=== PATIENT | male | born 1945 | race Caucasian/White ===

== ENCOUNTER 2017-03-19 01:22 | Inpatient (IN) | payer OTHER, MEDICARE ==
[~2017-03-19] VITALS: Ht 162.6 cm; Wt 57.6 kg
[2017-03-19] VITALS (8 sets, daily range): BP systolic 104–121; BP diastolic 63–78; PULSE 74–106; TEMP 36.6–37; O2SAT 89–95; BMI 21.8
[~2017-03-19 01:22] MED LIST: ALBU1AER9 INH; ASPCH81X PO; HYDR25TA4 PO; LEVO100T PO; METO25TA56 PO; SIMV20TA2 PO
[2017-03-19 02:51] LABS: ALT/SGPT 121 U/L (12-78); AST/SGOT 98 U/L (15-37); BLOOD UREA NITROGEN 18 mg/dl (7-18); BUN/CREATININE RATIO 19.1 (10-20); CALCIUM 8.5 mg/dl (8.5-10.1); CARBON DIOXIDE 24 mmol/L (21-32); CHLORIDE 105 mmol/L (98-107); CREATININE 0.93 mg/dl (0.60-1.40); GLUCOSE 147 mg/dl (70-99); POTASSIUM 4.2 mmol/L (3.5-5.1); SODIUM 135 mmol/L (136-145)
[2017-03-19 02:54] LABS: ALB/GLOB RATIO 0.8 (0.9-2); ALKALINE PHOSPHATASE 324 U/L (45-117)
[2017-03-19 03:06] LABS: INR 1.1 (0.9-1.1); PARTIAL THROMBOPLASTIN RATIO 1.1; PROTHROMBIN TIME (PATIENT) 11.3 SECONDS (9.0-12.0)
[2017-03-19 03:07] LABS: HEMATOCRIT 33.9 % (42-52); MEAN CELL VOLUME 90.4 fL (80-100); MEAN CORPUSCULAR HEMOGLOBIN 32.5 pg (25-34); MEAN PLATELET VOLUME 11.2 fL (7.4-10.4); PLATELET COUNT 32 K/uL (130-400); RED BLOOD COUNT 3.75 M/uL (4.7-6.1); WHITE BLOOD COUNT 5.98 K/uL (4.8-10.8)
[2017-03-19 03:22] LABS: COMPLETE YES; ECHINOCYTES 1+; LYMPH ABS # 1.09 K/uL (1.2-3.4); LYMPHOCYTE % 18.3 %; NEUTROPHILS % 51.3 %; VARIANT LYM ABS # 1.56 K/uL; VARIANT LYMPHOCYTE % 26.1 %
[2017-03-19] MEDS ORDERED: FUROSEMIDE 40 MG/4 ML VIAL IV STA (03:47)
[2017-03-19] MEDS ORDERED: GLIM1TAB2 PO (04:20)
[2017-03-19] MEDS ORDERED: LEVO50TA6 PO (04:21)
[2017-03-19] MEDS ORDERED: LIOT5TAB PO (04:28)
[2017-03-19 05:22] LABS: URINE APPEARANCE CLEAR (CLEAR); URINE COLOR DK YELLOW; URINE NITRITE NEG (NEG); URINE SPECIFIC GRAVITY 1.029 (1.000-1.030); UROBILINOGEN NEG (NEG); ZZUR CULT IF INDIC CLEAN CATCH NO
[2017-03-19 05:30] LABS: REVIEW REQ? NO
[2017-03-19 05:31] LABS: MANUAL MICROSCOPIC REQUIRED? NO; URINE BILIRUBIN NEG (NEG)
[2017-03-19] MEDS ORDERED: ACETAMINOPHEN 325 MG TAB PO PRN (05:45)
[2017-03-19] MEDS ORDERED: GLUCAGON FOR INJ 1 MG VIAL SQ PRN (05:45)
[2017-03-19] MEDS ORDERED: DEXTROSE 50% 50 ML SYR IV PRN (05:45)
[2017-03-19] MEDS ORDERED: ONDANSETRON INJ 2 MG/ML 2 ML VIAL IV PRN (05:45)
[2017-03-19] MEDS ORDERED: GLUCOSE 10 TABS/TUBE PO PRN (05:45)
[2017-03-19] MEDS ORDERED: GLUCOSE 40% GEL 15 GM TUBE PO PRN (05:45)
--- NOTE | 2017-03-19 05:54 | History and Physical ---
History & Physical Date & Time of Service: Mar 19, 2017 at 05:50 Chief Complaint: Cough,Temp Of 101.7-Transplant Patient Primary Care Physician: Dioni Pizarro M.D. 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 Patient was found to be hypoxic at 89 on room air while in ED. She states he had mucus drainage and some runny nose. SOB is worse with exertion and denies any SOB at rest. Denies any history of CHF and never was on oxygen in the past. Denies any history of chest pain, orthopnea, PND, leg swelling, wheezing, dizziness, fever, chills, weakness, nausea, vomiting, diarrhea, dysuria. Also reports abdominal pain across the abdomen since 2 days with no aggravating/relieving factors, non radiating, currently no tenderness on exam. Past Medical/Surgical History Medical Problems: (1) Hypothyroid Status: Chronic Surgical Problems: (1) Aortic valve replaced Status: Resolved Family History Patient reports no known family medical history. Reviewed, Not contributory Social History Smoking Status: Never Smoker Alcohol Use: none Drug Use: none Marital Status: Allergies Coded Allergies: No Known Allergies (Unverified , 08/07/13) Home Medications Scheduled Glimepiride (Glimepiride), 1 MG PO QID Levothyroxine Sodium (Levothyroxine Sodium), 50 MCG PO BID Liothyronine Sodium (Cytomel), 10 MCG PO BID Metoprolol Tartrate (Lopressor) (Lopressor), 12.5 MG PO BID Review of Systems See HPI for pertinent positives & negatives. A total of 10 systems reviewed and were otherwise negative. Physical Exam Vital Signs Date Time Temp Pulse Resp B/P (MAP) Pulse Ox O2 Delivery O2 Flow Rate FiO2 03/19/17 05:36 73 18 103/72 92 Room Air 2.0 03/19/17 05:12 79 03/19/17 04:55 72 18 116/77 96 Room Air 2.0 03/19/17 04:09 72 18 105/73 95 Room Air 03/19/17 03:33 36.9 75 18 113/75 94 Nasal Cannula 3.0 03/19/17 02:46 95 Nasal Cannula 3.0 03/19/17 01:58 37.1 75 18 112/72 90 Room Air 03/19/17 01:56 90 Room Air 03/19/17 01:45 80 03/19/17 01:30 37.1 87 18 99/63 89 Room Air General Appearance: WD/WN, no apparent distress Head: normocephalic, atraumatic Eyes: normal inspection, PERRL, EOMI, sclerae normal ENT: normal ENT inspection, hearing grossly normal Neck: supple, no JVD, trachea midline Respiratory/Chest: no respiratory distress, no accessory muscle use, + pertinent finding (Scattered rales, decreased breath sounds) Cardiovascular: regular rate, rhythm, no edema, + systolic murmur Abdomen/GI: normal bowel sounds, non tender, soft Back: normal inspection Extremities/Musculoskelatal: normal inspection, no pedal edema Neurologic/Psych: ski top trimmer II-XII nml as tested, no motor/sensory deficits, alert, normal mood/affect, oriented x 3 Skin: normal color, warm/dry Diagnostics Laboratory Results Results Past 24 Hours Test 03/19/17 01:50 03/19/17 03:03 03/19/17 03:45 03/19/17 03:58 Range/Units White Blood Count 5.98 4.8-10.8 K/uL Red Blood Count 3.75 4.7-6.1 M/uL Hemoglobin 12.2 14.0-18.0 g/dL Hematocrit 33.9 42-52 % Mean Corpuscular Volume 90.4 80-100 fL Mean Corpuscular Hemoglobin 32.5 25-34 pg Mean Corpuscular Hemoglobin Concent 36.0 32-36 g/dl Platelet Count 32 130-400 K/uL Mean Platelet Volume 11.2 7.4-10.4 fL RDW Standard Deviation 44.0 36.4-46.3 fL RDW Coefficient of Variation 13.3 11.5-14.5 % Neutrophils % (Manual) 51.3 % Lymphocytes % (Manual) 18.3 % Variant Lymphocytes % (manual) 26.1 % Monocytes % (Manual) 4.3 % Neutrophils # (Manual) 3.07 1.4-6.5 K/uL Total Absolute Neutrophils 3.07 1.4-6.5 K/uL Lymphocytes # (Manual) 1.09 1.2-3.4 K/uL Absolute Variant Lymphocytes 1.56 K/uL Total Absolute Lymphocytes 2.66 1.2-3.4 K/uL Monocytes # (Manual) 0.26 0.11-0.59 K/uL Echinocytes 1+ Prothrombin Time 11.3 9.0-12.0 SECONDS Prothromb Time International Ratio 1.1 0.9-1.1 Activated Partial Thromboplast Time 28.3 21.0-31.0 SECONDS Partial Thromboplastin Ratio 1.1 Sodium Level 135 136-145 mmol/L Potassium Level 4.2 3.5-5.1 mmol/L Chloride Level 105 98-107 mmol/L Carbon Dioxide Level 24 21-32 mmol/L Anion Gap 6.0 3-11 mmol/L Blood Urea Nitrogen 18 7-18 mg/dl Creatinine 0.93 0.60-1.40 mg/dl Est Creatinine Clear Calc Drug Dose 62.8 ml/min Estimated GFR () 96.7 Estimated GFR (Non- 83.5 BUN/Creatinine Ratio 19.1 10-20 Random Glucose 147 70-99 mg/dl Calcium Level 8.5 8.5-10.1 mg/dl Total Bilirubin 0.8 0.2-1 mg/dl Aspartate Amino Transf (AST/SGOT) 98 15-37 U/L Alanine Aminotransferase (ALT/SGPT) 121 12-78 U/L Alkaline Phosphatase 324 45-117 U/L Total Creatine Kinase 36 39-308 U/L Creatine Kinase MB < 0.5 0.5-3.6 ng/ml Creatine Kinase MB Ratio 0-3.0 Troponin I < 0.015 0-0.045 ng/ml Pro-B-Type Natriuretic Peptide 716 0-900 pg/ml Total Protein 6.5 6.4-8.2 gm/dl Albumin 2.8 3.4-5.0 gm/dl Globulin 3.7 2.5-4.0 gm/dl Albumin/Globulin Ratio 0.8 0.9-2 Bedside Lactic Acid Venous 0.78 0.90-1.70 mmol/L Urine Color DK YELLOW Urine Appearance CLEAR CLEAR Urine pH 5.0 4.5-7.5 Urine Specific Hanna 1.029 1.000-1.030 Urine Protein 1+ NEG Urine Glucose (UA) NEG NEG Urine Ketones TRACE NEG Urine Occult Blood NEG NEG Urine Nitrite NEG NEG Urine Bilirubin NEG NEG Urine Urobilinogen NEG NEG Urine Leukocyte Esterase NEG NEG Urine WBC (Auto) 1-5 0-5 /hpf Urine RBC (Auto) 0-4 0-4 /hpf Urine Hyaline Casts (Auto) 1-5 0-5 /lpf Urine Epithelial Cells (Auto) 5-10 0-5 /lpf Urine Bacteria (Auto) NEG NEG Microbiology Results 03/19/17 Blood Culture, Received Pending 03/19/17 Blood Culture, Received Pending Diagnostic Radiology CT chest: 1. Near diffuse ground glass airspace opacities within the lungs with mild interlobular septal thickening. This is nonspecific but can be seen the setting of an atypical pneumonia or pulmonary edema. The differential diagnosis also includes pulmonary hemorrhage, sarcoidosis, or less likely alveolar proteinosis, drug toxicity, hypersensitivity pneumonitis, or neoplastic change. Follow-up is recommended to ensure resolution. 2. Prominent mediastinal lymph nodes which are likely reactive. CXR: Near diffuse patchy airspace opacities and mild interstitial thickening throughout the lungs. This could be due to an atypical pneumonia or pulmonary edema. ABD USD: 1. A few small gallstones. No gallbladder wall thickening. 2. No hydronephrosis. Suggestion of a 4 mm stone within the right kidney. Impression Assessment and Plan Hypoxia: Likely secondary to atypical pneumonia or Pulmonary edema CT chest showed Near diffuse ground glass airspace opacities with mild interlobular septal thickening. 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 Y/N: Yes Risk Level: Low
[2017-03-19] MEDS ORDERED: OPTIRAY 320 IV PRN (06:45)
[2017-03-19] MEDS: INSULIN ASPART 100 UNITS/ML 3 ML PEN SC SCH ×4 (07:00→21:26)
--- NOTE | 2017-03-19 07:17 | DIAGNOSTIC IMAGING REPORT ---
CHEST CT WITH CONTRAST CT DOSE: 208.67 mGy.cm HISTORY: Hypoxia TECHNIQUE: Multiaxial CT images of the chest were performed following the intravenous administration of contrast. A dose lowering technique was utilized adhering to the principles of ALARA. COMPARISON: None. FINDINGS: No pleural effusions. No pneumothorax. The central airways are patent. Small linear scarlike density within the left lung apex. There are diffuse groundglass airspace opacities within the lungs demonstrating upper lobe predominance. There are is also mild interlobular septal thickening within the upper lobes. Poststernotomy changes. Left jugular Port-A-Cath terminates in the SVC. There are few scattered subcentimeter hypodense lesions within the liver. These are too small to characterize. The spleen and adrenal glands are unremarkable. Small hiatus hernia. The central pulmonary arteries are patent. Multiple subcentimeter mediastinal and hilar lymph nodes. The heart is normal in size. Normal caliber thoracic aorta with no evidence for dissection. There is an aortic valve prosthesis. IMPRESSION: 1. Near diffuse groundglass airspace opacities within the lungs with mild interlobular septal thickening. This is nonspecific but can be seen the setting of an atypical pneumonia or pulmonary edema. The differential diagnosis also includes pulmonary hemorrhage, sarcoidosis, or less likely alveolar proteinosis, drug toxicity, hypersensitivity pneumonitis, or neoplastic change. Follow-up is recommended to ensure resolution. 2. Prominent mediastinal lymph nodes which are likely reactive. Electronically signed by: Lucas Nguyen M.D. 03/19/2017 7:16 AM Dictated Date/Time: 03/19/2017 7:06 AM
--- NOTE | 2017-03-19 07:49 | DIAGNOSTIC IMAGING REPORT ---
ABDOMINAL ULTRASOUND COMPLETE HISTORY: Generalized Abd pain, elevated LFTs. COMPARISON: None. FINDINGS: Pancreas: The pancreatic head and tail are obscured by overlying bowel gas. The remaining portions of the pancreas are within normal limits. Liver: Unremarkable. Gallbladder: No gallbladder wall thickening. There are few small gallstones. CBD: 3 mm. Kidneys: No hydronephrosis. A 4 mm stone within the lower pole the right kidney. Spleen: Normal in size. Aorta: Normal in caliber. IVC: Patent. IMPRESSION: 1. A few small gallstones. No gallbladder wall thickening. 2. No hydronephrosis. Suggestion of a 4 mm stone within the right kidney. Electronically signed by: Lucas Nguyen M.D. 03/19/2017 7:48 AM Dictated Date/Time: 03/19/2017 7:45 AM
--- NOTE | 2017-03-19 08:03 | DIAGNOSTIC IMAGING REPORT ---
CHEST ONE VIEW PORTABLE HISTORY: cough COMPARISON: Chest 08/07/2013. FINDINGS: Near diffuse patchy airspace opacity seen throughout the lungs with mild interstitial thickening. Left jugular Port-A-Cath terminates in the SVC. Poststernotomy changes and cardiac valve prosthesis. The heart is normal in size. No pleural effusions. No pneumothorax. IMPRESSION: Near diffuse patchy airspace opacities and mild interstitial thickening throughout the lungs. This could be due to an atypical pneumonia or pulmonary edema. Electronically signed by: Lucas Nguyen M.D. 03/19/2017 8:01 AM Dictated Date/Time: 03/19/2017 8:00 AM
[2017-03-19] MEDS ORDERED: LEVOFLOXACIN / D5W 750 MG in PREMIXED IN D5W 150 ML IV SCH (09:30)
--- NOTE | 2017-03-19 09:40 | ECHOCARDIOGRAM REPORT ---
*NOTICE TO RECEIVING CONSTITUTION PARTY AGENCY This information is strictly Confidential and protected under [place] law. [place] law prohibits you from making any further disclosure of this information unless further disclosure is expressly permitted by the written consent of the person to whom it pertains or is authorized by law. A general authorization for the release of medical or other information is not sufficient for this purpose. Hospital accepts no responsibility if the information is made available to any other person, INCLUDING THE PATIENT. Interpretation Summary * Name: SHELBI BRUNNER Study Date: 03/19/2017 07:53 AM BP: 103/72 mmHg * Patient Location: [facility] HR: 73 * : 1945 (M/d/yyyy) Gender: Male Height: 64 in * Age: 71 yrs Ethnicity: CA Weight: 134 lb * Ordering Physician: Clemente Akers * Referring Physician: Self, Referred * Performed By: Caitlyn Denson RDCS * * Reason For Study: Congestive Heart Failure * BSA: 1.6 m2 * -- Conclusions -- * The left ventricle is normal in size. * Left ventricular systolic function is normal. * Ejection Fraction = 55-60%. * Grade I diastolic dysfunction, (abnormal relaxation pattern). * The right ventricular systolic function is normal. * The left atrial size is normal. * Right atrial size is normal. * No significant valvular pathology. Procedure Details * A complete two-dimensional transthoracic echocardiogram was performed (2D, M-mode, Doppler and color flow Doppler). Left Ventricle * The left ventricle is normal in size. * There is normal left ventricular wall thickness. * Ejection Fraction = 55-60%. * Left ventricular systolic function is normal. * The left ventricular wall motion is normal. Right Ventricle * The right ventricle is normal size. * The right ventricular systolic function is normal. Atria * The left atrial size is normal. * Right atrial size is normal. * There is no evidence of atrial septal defect, but resolution does not allow assessment for a patent foramen ovale. Mitral Valve * The mitral valve anatomy is normal. * There is moderate mitral annular calcification. * Significant mitral regurgitation is absent. Tricuspid Valve * The tricuspid valve anatomy is normal. * Significant tricuspid regurgitation is absent. Aortic Valve * The aortic valve is tricuspid. The leaflet thickness if normal. There is no aortic stenosis, and no significant insufficiency. * Aortic valve sclerosis moderate, without significant aortic valvular stenosis. * There is no significant aortic regurgitation. Pulmonic Valve * The pulmonic valve is not well visualized. * There is no significant pulmonary regurgitation. Great Vessels * The aortic root and proximal ascending aorta are normal sized. Pericardium/Pleural * There is no pericardial effusion. Left Ventricular Diastolic Function * Grade I diastolic dysfunction, (abnormal relaxation pattern). MMode 2D Measurements and Calculations IVSd 0.92 cm IVSs 1.5 cm LVIDd 3.9 cm LVIDs 2.7 cm LVPWd 0.98 cm LVPWs 1.4 cm IVS/LVPW 0.95 FS 30.7 % EDV(Teich) 67.3 ml ESV(Teich) 27.6 ml EF(Teich) 58.9 % EDV(cubed) 60.9 ml ESV(cubed) 20.2 ml EF(cubed) 66.8 % % IVS thick 63.0 % % LVPW thick 44.0 % LV mass(C)d 114.9 grams LV mass(C)dI 69.7 grams/m\S\2 LV mass(C)s 132.5 grams LV mass(C)sI 80.3 grams/m\S\2 SV(Teich) 39.7 ml SI(Teich) 24.0 ml/m\S\2 SV(cubed) 40.7 ml SI(cubed) 24.6 ml/m\S\2 Ao root diam 2.2 cm Ao root area 3.6 cm\S\2 ACS 1.3 cm LA dimension 3.6 cm LA/Ao 1.7 LVOT diam 1.8 cm LVOT area 2.5 cm\S\2 LVAd ap4 24.7 cm\S\2 LVLd ap4 8.0 cm EDV(MOD-sp4) 66.4 ml EDV(sp4-el) 64.4 ml LVAs ap4 12.9 cm\S\2 LVLs ap4 6.7 cm ESV(MOD-sp4) 22.7 ml ESV(sp4-el) 21.1 ml EF(MOD-sp4) 65.8 % EF(sp4-el) 67.2 % LVAd ap2 26.2 cm\S\2 LVLd ap2 8.9 cm EDV(MOD-sp2) 67.3 ml EDV(sp2-el) 65.3 ml LVAs ap2 14.0 cm\S\2 LVLs ap2 7.1 cm ESV(MOD-sp2) 25.2 ml ESV(sp2-el) 23.7 ml EF(MOD-sp2) 62.6 % EF(sp2-el) 63.7 % LVLd %diff 10.0 % EDV(MOD-bp) 69.5 ml LVLs %diff 5.6 % ESV(MOD-bp) 24.5 ml EF(MOD-bp) 64.7 % SV(MOD-sp4) 43.7 ml SI(MOD-sp4) 26.5 ml/m\S\2 SV(MOD-sp2) 42.2 ml SI(MOD-sp2) 25.5 ml/m\S\2 SV(MOD-bp) 45.0 ml SI(MOD-bp) 27.3 ml/m\S\2 SV(sp4-el) 43.3 ml SI(sp4-el) 26.3 ml/m\S\2 SV(sp2-el) 41.6 ml SI(sp2-el) 25.2 ml/m\S\2 Doppler Measurements and Calculations MV E max trey 63.5 cm/sec MV A max trey 86.3 cm/sec MV E/A 0.74 MV dec time 0.33 sec Ao V2 max 313.7 cm/sec Ao max PG 39.4 mmHg Ao max PG (full) 31.1 mmHg Ao V2 mean 202.9 cm/sec Ao mean PG 19.4 mmHg Ao mean PG (full) 15.5 mmHg Ao V2 VTI 52.2 cm LISSETT(I,A) 1.1 cm\S\2 LISSETT(I,D) 1.1 cm\S\2 LISSETT(V,A) 1.2 cm\S\2 LISSETT(V,D) 1.2 cm\S\2 LV V1 max PG 8.3 mmHg LV V1 mean PG 3.9 mmHg LV V1 max 144.4 cm/sec LV V1 mean 88.4 cm/sec LV V1 VTI 23.4 cm SV(Ao) 190.3 ml SI(Ao) 115.3 ml/m\S\2 SV(LVOT) 58.6 ml SI(LVOT) 35.5 ml/m\S\2 PA V2 max 154.1 cm/sec PA max PG 9.6 mmHg
[2017-03-19] MEDS: LEVOTHYROXINE 50 MCG TAB PO SCH ×2 (10:23→17:46)
[2017-03-19] MEDS: METOPROLOL TARTRATE 25 MG TAB PO SCH ×2 (10:24→21:20)
[2017-03-19] MEDS: LIOTHYRONINE SODIUM 5 MCG TAB PO SCH ×2 (10:24→21:20)
[2017-03-19] MEDS: ENOXAPARIN 40 MG/0.4 ML SYR SC SCH (10:24)
[2017-03-19 11:55] LABS: ARTERIAL BLD GAS O2 SATURATION 94.9 % (90-95); ARTERIAL BLOOD GAS BASE EXCESS 0.4 mEq/L (-9-1.8); ARTERIAL BLOOD GAS HCO3 23 mmol/L (19-24); ARTERIAL BLOOD GAS PO2 78 mm/Hg (80-95); ARTERIAL BLOOD GAS pH 7.49 (7.35-7.45); O2 ADMINISTRATION ROOM AIR
[2017-03-19 11:56] LABS: ALLEN TEST POS (POS)
--- NOTE | 2017-03-19 15:01 | Pulmonary Consultation ---
History General Date of Service: Mar 19, 2017. Stated Complaint: Sob (Shortness Of Breath) On Exertion HPI The patient is a 71 year old male who presents to [facility] with complaints of Sob (Shortness Of Breath) On Exertion. The patient's primary care provider is Dioni Pizarro M.D.. Mr. Hussein is a 71-year-old male with past medical history of AML stem cell cell transplant and chemotherapy (last dose in September 2016, cytarabine and doxorubicin), aortic stenosis status post aortic valve replacement, parotid tumor resection, diabetes type 2, hypertension, fungal pneumonia (unknown organism or antibiotic) who presents on 03/19/2017 with symptoms of exertional shortness of breath associated with dry nonproductive cough for the last 3 days. He has unlimited exercise tolerance, but could only take a few steps to bathroom that were associated with dyspnea. Patient denies any shortness of breath at rest but says that his symptoms are exacerbated with minimal exertion. Dyspnea is worse when sitting up and he feels better when he lays flat. He episode of hives on Monday, had labs drawn and found to be thrombocytopenic , called physician at [facility] prophylactic acyclovir and Bactrim as discontinued. He admits to having upper respiratory symptoms of nasal sinus drainage and rhinorrhea. Per he had subjective fevers, chills, night sweats, weight loss, hemoptysis, chest tightness or wheezing, chest pain or palpitations, lightheadedness or dizziness. He denies any orthopnea, paroxysmal nocturnal dyspnea or lower extremity pain or swelling. He does complain of epigastric intermittent abdominal pain for last 2 days. Denies any nausea vomiting or diarrhea. Denies any genitourinary symptoms. He denies any sick contacts or recent travel. 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 Vital signs in the ER showed a temperature 37.1, pulse is 87, respiratory rate of 18 blood pressure 99/63 saturating 89% on room air. Initial examination in the ER was significant for scattered crackles bilaterally with decreased breath sounds. Laboratory data showed white blood cell count of 5.98, hemoglobin of 12 , hematocrit 32.9, platelet count 32. Chemistry showed a sodium of 135 BUN and creatinine within normal limits. Glucose 147, AST 98, ALT 121, alk phosphatase 224. Troponin was less than 0.015, proBNP was 716. Albumin 2.8. Urine showed trace ketones. Blood cultures sent and are pending. Chest x-ray showed diffuse patchy airspace opacities with mild interstitial thickening throughout lungs. CT chest confirmed diffuse groundglass airspace opacities of the lung with mild interlobular septal thickening. There is also associated prominent mediastinal adenopathy. Abdominal ultrasound showed a few small gallstones, no gallbladder wall thickening. No hydronephrosis with a 4 mm stone within the right kidney. Historian: family Onset: last week Severity: moderate Review of Systems Constitutional: reports: as stated in HPI Eyes: reports: as stated in HPI ENT: reports: as stated in HPI Cardiovascular: reports: as stated in HPI Respiratory: reports: as stated in HPI Gastrointestinal: reports: as stated in HPI Genitourinary - Male: reports: as stated in HPI Musculoskeletal: reports: as stated in HPI Integumentary: reports: as stated in HPI Neurologic: reports: as stated in HPI Psychiatric: reports: as stated in HPI Endocrine: as stated in HPI Hematologic / Lymphatic: as stated in HPI Allergic / Immunologic: as stated in HPI All Other Symptoms All Other Systems: Reviewed and Negative Past Medical History Past Medical History: AML status post stem cell transplant status post chemotherapy in September 2016 Fungal pneumonia Diabetes Aortic stenosis status post porcine AVR 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 No family history of respiratory disease Social History Is a lifetime nonsmoker, denies alcohol use or illicit drug use. . 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 Smoking Status: Never Smoker Marital status: Allergies Coded Allergies: No Known Allergies (Unverified , 08/07/13) Current Medications Reported Home Medications Medications Dose Route/Sig Max Daily Dose Days Date Category Cytomel (Liothyronine Sodium) 5 Mcg Tab 10 Mcg PO BID 03/19/17 Reported Levothyroxine Sodium 50 Mcg Tab 50 Mcg PO BID 03/19/17 Reported Glimepiride 1 Mg Tab 1 Mg PO QID 03/19/17 Reported Lopressor (Metoprolol Tartrate) 25 Mg Tab 12.5 Mg PO BID 08/07/13 Reported Physical Physical Exam Vital Signs: Date Time Temp Pulse Resp B/P (MAP) Pulse Ox O2 Delivery O2 Flow Rate FiO2 03/19/17 07:35 36.6 80 18 121/78 92 Nasal Cannula 2.0 03/19/17 05:36 73 18 103/72 92 Room Air 2.0 03/19/17 05:12 79 03/19/17 04:55 72 18 116/77 96 Room Air 2.0 03/19/17 04:09 72 18 105/73 95 Room Air 03/19/17 03:33 36.9 75 18 113/75 94 Nasal Cannula 3.0 03/19/17 02:46 95 Nasal Cannula 3.0 03/19/17 01:58 37.1 75 18 112/72 90 Room Air 03/19/17 01:56 90 Room Air 03/19/17 01:45 80 03/19/17 01:30 37.1 87 18 99/63 89 Room Air General Appearance: WD/WN, NO APPARENT DISTRESS, thin Head: NORMOCEPHALIC, ATRAUMATIC Eyes: PERRLA, NO DISCHARGE, EOMI, SCLERAE NORMAL ENT: NORMAL EAR EXAM, NORMAL NASAL EXAM, NORMAL MOUTH EXAM, NORMAL THROAT EXAM Neck: NORMAL RANGE OF MOTION, NO TENDERNESS, TRACHEA MIDLINE, SUPPLE Respiratory: other (mildly tachypnic) Cardiovasular: REGULAR RATE/RHYTHM, NORMAL S1S2 Abdomen: NON TENDER, NORMAL BOWEL SOUNDS, NO REBOUND Back: NORMAL INSPECTION, NO MIDLINE TENDERNESS, NO CVA TENDERNESS Upper Extremities: NO EDEMA, NO DEFORMITY, NORMAL ROM Lower Extremities: NO EDEMA, NO DEFORMITY, NORMAL ROM Edema: RUE Pulses: dorsalis pedis (R) (2+), dorsalis pedis (L) (2+) Neuro: ALERT, ORIENTED x 3, NORMAL MOTOR EXAM, NORMAL SENSATION, NORMAL MEMORY Reflexes: biceps (R) Psychiatric: NORMAL AFFECT, NO SUICIDAL IDEATION, CONTRACTS FOR SAFETY, flat affect Diagnostics Labs Results Past 24 Hours Test 03/19/17 01:50 03/19/17 03:03 03/19/17 03:45 03/19/17 03:58 Range/Units White Blood Count 5.98 4.8-10.8 K/uL Red Blood Count 3.75 4.7-6.1 M/uL Hemoglobin 12.2 14.0-18.0 g/dL Hematocrit 33.9 42-52 % Mean Corpuscular Volume 90.4 80-100 fL Mean Corpuscular Hemoglobin 32.5 25-34 pg Mean Corpuscular Hemoglobin Concent 36.0 32-36 g/dl Platelet Count 32 130-400 K/uL Mean Platelet Volume 11.2 7.4-10.4 fL RDW Standard Deviation 44.0 36.4-46.3 fL RDW Coefficient of Variation 13.3 11.5-14.5 % Neutrophils % (Manual) 51.3 % Lymphocytes % (Manual) 18.3 % Variant Lymphocytes % (manual) 26.1 % Monocytes % (Manual) 4.3 % Neutrophils # (Manual) 3.07 1.4-6.5 K/uL Total Absolute Neutrophils 3.07 1.4-6.5 K/uL Lymphocytes # (Manual) 1.09 1.2-3.4 K/uL Absolute Variant Lymphocytes 1.56 K/uL Total Absolute Lymphocytes 2.66 1.2-3.4 K/uL Monocytes # (Manual) 0.26 0.11-0.59 K/uL Echinocytes 1+ Prothrombin Time 11.3 9.0-12.0 SECONDS Prothromb Time International Ratio 1.1 0.9-1.1 Activated Partial Thromboplast Time 28.3 21.0-31.0 SECONDS Partial Thromboplastin Ratio 1.1 Sodium Level 135 136-145 mmol/L Potassium Level 4.2 3.5-5.1 mmol/L Chloride Level 105 98-107 mmol/L Carbon Dioxide Level 24 21-32 mmol/L Anion Gap 6.0 3-11 mmol/L Blood Urea Nitrogen 18 7-18 mg/dl Creatinine 0.93 0.60-1.40 mg/dl Est Creatinine Clear Calc Drug Dose 62.8 ml/min Estimated GFR () 96.7 Estimated GFR (Non- 83.5 BUN/Creatinine Ratio 19.1 10-20 Random Glucose 147 70-99 mg/dl Calcium Level 8.5 8.5-10.1 mg/dl Total Bilirubin 0.8 0.2-1 mg/dl Aspartate Amino Transf (AST/SGOT) 98 15-37 U/L Alanine Aminotransferase (ALT/SGPT) 121 12-78 U/L Alkaline Phosphatase 324 45-117 U/L Total Creatine Kinase 36 39-308 U/L Creatine Kinase MB < 0.5 0.5-3.6 ng/ml Creatine Kinase MB Ratio 0-3.0 Troponin I < 0.015 0-0.045 ng/ml Pro-B-Type Natriuretic Peptide 716 0-900 pg/ml Total Protein 6.5 6.4-8.2 gm/dl Albumin 2.8 3.4-5.0 gm/dl Globulin 3.7 2.5-4.0 gm/dl Albumin/Globulin Ratio 0.8 0.9-2 Bedside Lactic Acid Venous 0.78 0.90-1.70 mmol/L Urine Color DK YELLOW Urine Appearance CLEAR CLEAR Urine pH 5.0 4.5-7.5 Urine Specific [place] 1.029 1.000-1.030 Urine Protein 1+ NEG Urine Glucose (UA) NEG NEG Urine Ketones TRACE NEG Urine Occult Blood NEG NEG Urine Nitrite NEG NEG Urine Bilirubin NEG NEG Urine Urobilinogen NEG NEG Urine Leukocyte Esterase NEG NEG Urine WBC (Auto) 1-5 0-5 /hpf Urine RBC (Auto) 0-4 0-4 /hpf Urine Hyaline Casts (Auto) 1-5 0-5 /lpf Urine Epithelial Cells (Auto) 5-10 0-5 /lpf Urine Bacteria (Auto) NEG NEG Microbiology Results 03/19/17 Blood Culture, Received Pending 03/19/17 Blood Culture, Received Pending Diagnostic Radiology TTE 03/19/2017 * -- Conclusions -- * The left ventricle is normal in size. * Left ventricular systolic function is normal. * Ejection Fraction = 55-60%. * Grade I diastolic dysfunction, (abnormal relaxation pattern). * The right ventricular systolic function is normal. * The left atrial size is normal. * Right atrial size is normal. * No significant valvular pathology. ABDOMINAL ULTRASOUND COMPLETE 03/19/2017 HISTORY: Generalized Abd pain, elevated LFTs. COMPARISON: None. FINDINGS: Pancreas: The pancreatic head and tail are obscured by overlying bowel gas. The remaining portions of the pancreas are within normal limits. Liver: Unremarkable. Gallbladder: No gallbladder wall thickening. There are few small gallstones. CBD: 3 mm. Kidneys: No hydronephrosis. A 4 mm stone within the lower pole the right kidney. Spleen: Normal in size. Aorta: Normal in caliber. IVC: Patent. IMPRESSION: 1. A few small gallstones. No gallbladder wall thickening. 2. No hydronephrosis. Suggestion of a 4 mm stone within the right kidney. CHEST CT WITH CONTRAST 03/19/2017 CT DOSE: 208.67 mGy.cm HISTORY: Hypoxia TECHNIQUE: Multiaxial CT images of the chest were performed following the intravenous administration of contrast. A dose lowering technique was utilized adhering to the principles of ALARA. COMPARISON: None. FINDINGS: No pleural effusions. No pneumothorax. The central airways are patent. Small linear scarlike density within the left lung apex. There are diffuse groundglass airspace opacities within the lungs demonstrating upper lobe predominance. There are is also mild interlobular septal thickening within the upper lobes. Poststernotomy changes. Left jugular Port-A-Cath terminates in the SVC. There are few scattered subcentimeter hypodense lesions within the liver. These are too small to characterize. The spleen and adrenal glands are unremarkable. Small hiatus hernia. The central pulmonary arteries are patent. Multiple subcentimeter mediastinal and hilar lymph nodes. The heart is normal in size. Normal caliber thoracic aorta with no evidence for dissection. There is an aortic valve prosthesis. IMPRESSION: 1. Near diffuse groundglass airspace opacities within the lungs with mild interlobular septal thickening. This is nonspecific but can be seen the setting of an atypical pneumonia or pulmonary edema. The differential diagnosis also includes pulmonary hemorrhage, sarcoidosis, or less likely alveolar proteinosis, drug toxicity, hypersensitivity pneumonitis, or neoplastic change. Follow-up is recommended to ensure resolution. 2. Prominent mediastinal lymph nodes which are likely reactive. CHEST ONE VIEW PORTABLE 03/19/2017 HISTORY: cough COMPARISON: Chest 08/07/2013. FINDINGS: Near diffuse patchy airspace opacity seen throughout the lungs with mild interstitial thickening. Left jugular Port-A-Cath terminates in the SVC. Poststernotomy changes and cardiac valve prosthesis. The heart is normal in size. No pleural effusions. No pneumothorax. IMPRESSION: Near diffuse patchy airspace opacities and mild interstitial thickening throughout the lungs. This could be due to an atypical pneumonia or pulmonary edema. Impression Assessment and Plan Hypoxic respiratory failure AML status post stem cell therapy and chemotherapy Thrombocytopenia Transaminitis Diastolic dysfunction, grade 1 History of recent fungal pneumonia History of CMV Patient has diffuse ground opacities in the settings of immunosuppression. My impression that is that is likely is a an opportunistic infection,but could also represent a drug induced interstial pneumonitis or idiopathic interstitial pneumonia. I would treat him empirically with acyclovir to cover for HSV, voriconazole to cover for fungals and broad spectrum antibiotics to cover for health care acquired bacterial pneumonia. Patient has had history of questionable CMV pneumonia treated with ganvalcyclovir and fungal pneumonia in the past ,exact organism and treatment unknown. He did present with symptoms after discontinuing bactrim, fluconazole and acyclovir. I would obtain CMV PCR, Fungitell, Try to obtain sputum and blood cultures. Will give hypertonic saline for sputum induction as bronchoscopy is contraindicated with thrombocytopenia and platelet count of 30. ABG shows PaO2 in 70s on 3L NC. Start him solumedrol 40 mg IV BID. If he should decompensate a trial of BIPAP is warranted. GI ppx and for possible GERD with PPI He does have diastolic dysfunction which may be contributing to some of his symptoms has he does have history of AVR. I would recommend ID and Hematology consults It is pertinent that we obtain medical records from [facility], [facility]. I appreciate the consult. Discussed case with Hospitalist, Dr. Gonzalez
[2017-03-19] MEDS ORDERED: VANCOMYCIN INJ 1,250 MG in SODIUM CHLORIDE 0.9% 250ML 250 ML IV STA (15:03)
[2017-03-19] MEDS: ALBUT/IPRATROP 3MG/0.5MG NEB 3 ML VIAL INH SCH ×2 (15:15→19:11)
[2017-03-19] MEDS ORDERED: [UNRECOGNIZED DRUG - REMARK] PRN (15:45)
[2017-03-19] MEDS ORDERED: ACYCLOVIR SOD INJ 500 MG in DEXTROSE 5% 100ML 100 ML IV SCH (16:00)
[2017-03-19] MEDS ORDERED: AZITHROMYCIN IV 500 MG in DEXTROSE 5% 250ML 250 ML IV ONE (16:00)
--- NOTE | 2017-03-19 16:23 | Pharmacy Progress Note ---
Pharmacy Abx Dose Short Note Date of Service Mar 19, 2017. Assessment & Plan Assessment 71 year old male receiving IV Vancomycin, Zosyn, Acyclovir, Azithromycin, and Voriconazole for treatment of possible HAP. This is a complicated patient who is immunocompromised with hx fungal pneumonia. ID has been consulted. Renal function appears to be at baseline. sCr = 0.93 mg/dL with estimated CrCl ~63 mL /min. Estimated pharmacokinetic parameters: Ke ~0.057/hr, T1/2 ~12.1 hrs Plan Vancomycin * Give Vancomycin 1250mg (~22mg/kg) IV x 1 as a loading dose * Initiate Vancomycin 750mg (~13mg/kg) IV q14 as maintenance regimen * Goal Vancomycin trough 15-20 mcg/mL * Trough level ordered for 03/21 @ 0930 (early level prior to steady state) * MRSA nasal swab ordered Voriconazole * 6mg/kg IV q12 on day 1, then 4mg/kg IV q12 thereafter Zosyn * Give Zosyn 3.375g IV x 1 over 30 minutes, then extended infusion 3.375g IV q8 (over 4 hours) thereafter Pharmacy will continue to follow and will adjust dose/frequency as necessary. Thank you.
[2017-03-19] MEDS ORDERED: PIPERACILL/TAZOBAC CONSULT ACTIVE PRN (16:30)
[2017-03-19] MEDS ORDERED: VANCOMYCIN CONSULT ACTIVE PRN (16:30)
[2017-03-19] MEDS ORDERED: PIPERACILL/TAZOBAC IV 3.375 GM in DEXTROSE 5% 100ML 100 ML IV ONE (17:00)
[2017-03-19] MEDS: SODIUM CHLORIDE 0.9% IV SCH (17:18)
[2017-03-19] MEDS: VORICONAZOLE IV SCH (17:18)
--- NOTE | 2017-03-19 18:31 | Progress Note ---
Medicine Progress Note Date & Time of Visit: Mar 19, 2017 at 18:13. Subjective Patient was seen and examined with family at the bedside; please see H&P from this AM for more details. Patient reports feeling some post nasal drainage, states that he continues to have a nonproductive cough. Denies any chest pain. His family does provide additional information, state that the patient had hives on his arms and legs on Monday which resolved with a dose of benadryl. They state they followed up with Oncology in [place] on Monday and that due to low platelets, the bactrim and acyclovir were stopped as possibly contributing to this phenomenon. Objective Last 8 Hrs Date Time Temp Pulse Resp B/P (MAP) Pulse Ox O2 Delivery O2 Flow Rate FiO2 03/19/17 16:04 36.7 79 20 105/68 (80) 91 Room Air 4.0 03/19/17 15:15 86 16 95 Nasal Cannula 3.0 03/19/17 12:00 93 Nasal Cannula 2.0 03/19/17 11:54 36.7 74 16 112/72 (85) 93 Nasal Cannula Physical Exam: GENERAL: Patient is in no acute distress. HEENT: No acute trauma, normocephalic atraumatic, mucous membranes moist, no nasal congestion, no scleral icterus. NECK: No stridor, trachea is midline. LUNGS: Rales bilaterally, no wheeze, occasional rhonchi; no use of accessory muscles, no chest wall tenderness HEART: Without murmurs gallops or rubs, regular rate and rhythm. ABDOMEN: Soft, nontender, bowel sounds positive EXTREMITIES: No cyanosis or edema, ROM grossly intact NEUROLOGIC: Oriented x 3, no acute motor or sensory deficits, no focal weakness. SKIN: No rash, no jaundice, no diaphoresis. Laboratory Results: Last 24 Hours Test 03/19/17 01:50 03/19/17 03:03 03/19/17 03:45 03/19/17 03:58 White Blood Count 5.98 K/uL Red Blood Count 3.75 M/uL Hemoglobin 12.2 g/dL Hematocrit 33.9 % Mean Corpuscular Volume 90.4 fL Mean Corpuscular Hemoglobin 32.5 pg Mean Corpuscular Hemoglobin Concent 36.0 g/dl Platelet Count 32 K/uL Mean Platelet Volume 11.2 fL RDW Standard Deviation 44.0 fL RDW Coefficient of Variation 13.3 % Neutrophils % (Manual) 51.3 % Lymphocytes % (Manual) 18.3 % Variant Lymphocytes % (manual) 26.1 % Monocytes % (Manual) 4.3 % Neutrophils # (Manual) 3.07 K/uL Total Absolute Neutrophils 3.07 K/uL Lymphocytes # (Manual) 1.09 K/uL Absolute Variant Lymphocytes 1.56 K/uL Total Absolute Lymphocytes 2.66 K/uL Monocytes # (Manual) 0.26 K/uL Echinocytes 1+ Prothrombin Time 11.3 SECONDS Prothromb Time International Ratio 1.1 Activated Partial Thromboplast Time 28.3 SECONDS Partial Thromboplastin Ratio 1.1 Sodium Level 135 mmol/L Potassium Level 4.2 mmol/L Chloride Level 105 mmol/L Carbon Dioxide Level 24 mmol/L Anion Gap 6.0 mmol/L Blood Urea Nitrogen 18 mg/dl Creatinine 0.93 mg/dl Est Creatinine Clear Calc Drug Dose 62.8 ml/min Estimated GFR () 96.7 Estimated GFR (Non- 83.5 BUN/Creatinine Ratio 19.1 Random Glucose 147 mg/dl Calcium Level 8.5 mg/dl Total Bilirubin 0.8 mg/dl Aspartate Amino Transf (AST/SGOT) 98 U/L Alanine Aminotransferase (ALT/SGPT) 121 U/L Alkaline Phosphatase 324 U/L Total Creatine Kinase 36 U/L Creatine Kinase MB < 0.5 ng/ml Creatine Kinase MB Ratio Troponin I < 0.015 ng/ml Pro-B-Type Natriuretic Peptide 716 pg/ml Total Protein 6.5 gm/dl Albumin 2.8 gm/dl Globulin 3.7 gm/dl Albumin/Globulin Ratio 0.8 Bedside Lactic Acid Venous 0.78 mmol/L Urine Color DK YELLOW Urine Appearance CLEAR Urine pH 5.0 Urine Specific [place] 1.029 Urine Protein 1+ Urine Glucose (UA) NEG Urine Ketones TRACE Urine Occult Blood NEG Urine Nitrite NEG Urine Bilirubin NEG Urine Urobilinogen NEG Urine Leukocyte Esterase NEG Urine WBC (Auto) 1-5 /hpf Urine RBC (Auto) 0-4 /hpf Urine Hyaline Casts (Auto) 1-5 /lpf Urine Epithelial Cells (Auto) 5-10 /lpf Urine Bacteria (Auto) NEG Test 03/19/17 10:49 03/19/17 11:39 03/19/17 11:40 03/19/17 15:27 Pro-B-Type Natriuretic Peptide 606 pg/ml Arterial Blood pH 7.49 Arterial Blood Partial Pressure CO2 31 mmHg Arterial Blood Partial Pressure O2 78 mm/Hg Arterial Blood HCO3 23 mmol/L Arterial Blood Oxygen Saturation 94.9 % Arterial Blood Base Excess 0.4 mEq/L Arterial Blood Gas Delivery ROOM AIR Edgar Test POS Bedside Glucose 261 mg/dl Test 03/19/17 16:08 03/19/17 17:40 Bedside Glucose 120 mg/dl Date/Time Source Procedure Growth Status 03/19/17 15:27 Blood Blood Culture Pending Received 03/19/17 15:25 Blood Blood Culture Pending Received 03/19/17 03:00 Blood Blood Culture Pending Received 03/19/17 02:55 Blood Blood Culture Pending Received 03/19/17 17:40 Nasal MRSA DNA Surveillance Screen Pending Received 03/19/17 10:28 Sputum Expectorated Sputum Gram Stain Pending Petty Batch 03/19/17 10:28 Sputum Expectorated Sputum Sputum Culture Pending Petty Batch Assessment & Plan ACUTE HYPOXIC RESPIRATORY FAILURE: -most likely secondary to atypical pneumonia/infectious etiology or interstitial fibrosis as per the CT chest -CT chest: showed diffuse ground glass airspace opacities with mild interlobular septal thickening. -has a prior hx of fungal Pneumonia, and also prior hx of CMV following stem cell transplant -oxygen titrated to keep sats above 90% -ABG showed 7.49/ -Pulmonary consulted, appreciate recommendations: cultures ordered, patient was started on empiric voriconazole, acyclovir, zosyn, azithro, vanco; levaquin stopped; no bronch at this time related to low platelets and also not available for bronch -TTE: EF 55-60%, grade I diastolic dysfunction with no significant valvulopathy ; BNP normal, no orthopnea -was treated with lasix as well -IV solu-medrol 40mg BID started -ID consulted TRANSAMINITIS: -mild abd pain -US limited shows few small gallstones, no ductal dilatation, no GB wall thickening -monitor LFTs AML: S/P STEM CELL TRANSPLANT -last chemotherapy in September 2016 -presently not on any medications -[facility]s with [facility] -recently discontinued medications (stopped on 03/15 due to thrombocytopenia) were Acyclovir, Bactrim, and Fluconazole -Hem/Onc consulted HTN: -stable -continue home meds HYPOTHYROIDISM: -continue Cytomel, Levothyroxine S/P PRIOR AV REPLACEMENT: -stable -no issues present on echocardiogram related to the valves DM TYPE II: induced by chemotherapy per patient -BSG AC and HS -continue correction scale insulin + lantus -hold home meds while in the hospital -HbA1c: 7.0% Current Inpatient Medications: Current Inpatient Medications Medications (Trade) Dose Ordered Sig/Keeley Route Start Time Stop Time Status Last Admin Dose Admin Enoxaparin Sodium (Lovenox Inj) 40 mg DAILY SC 03/19/17 09:00 04/18/17 08:59 03/19/17 10:24 40 MG Acetaminophen (Tylenol Tab) 650 mg Q4H PRN PO 03/19/17 05:45 04/18/17 05:44 Ondansetron HCl (Zofran Inj) 4 mg Q6H PRN IV 03/19/17 05:45 04/18/17 05:44 Albuterol/ Ipratropium (Duoneb) 3 ml QIDR INH 03/19/17 08:00 04/18/17 07:59 03/19/17 15:15 3 ML Furosemide 40 mg/ Syringe 4 ml @ 4 mls/min DAILY IV 03/20/17 09:00 04/19/17 08:59 Insulin Aspart (novoLOG ASPART) SLIDING SCALE If C... ACHS SC 03/19/17 07:00 04/18/17 06:59 03/19/17 13:31 2 UNITS Glucose (Glucose 40% Gel) 15-30 GRAMS 15 GRAMS... UD PRN PO 03/19/17 05:45 04/18/17 05:44 Glucose (Glucose Chew Tab) 4-8 Tablets 4 Tabl... UD PRN PO 03/19/17 05:45 04/18/17 05:44 Dextrose (Dextrose 50% 50ML Syringe) 25-50ML OF 50% DW IV FOR... UD PRN IV 03/19/17 05:45 04/18/17 05:44 Glucagon (Glucagon Inj) 1 mg UD PRN SQ 03/19/17 05:45 04/18/17 05:44 Levothyroxine Sodium (Synthroid Tab) 50 mcg BID@0700,1615 PO 03/19/17 09:00 04/18/17 08:59 03/19/17 17:46 50 MCG Liothyronine Sodium (Cytomel Tab) 10 mcg BID PO 03/19/17 09:00 04/18/17 08:59 03/19/17 10:24 10 MCG Metoprolol Tartrate (Lopressor Tab) 12.5 mg BID PO 03/19/17 09:00 04/18/17 08:59 03/19/17 10:24 12.5 MG Ioversol (Optiray 320) 100 ml UD PRN IV 03/19/17 06:45 03/23/17 06:44 Voriconazole 350 mg/Sodium Chloride 100 ml @ 50 mls/hr Q12H IV 03/19/17 16:00 03/20/17 05:59 03/19/17 17:18 50 MLS/HR Sodium Chloride (Sodium Chloride 7% Neb Solution) 4 ml BIDR INH 03/19/17 20:00 04/18/17 19:59 Methylprednisolone Sodium Succinate 40 mg/Syringe 0.64 ml @ 1.5 mls/min BID IV 03/19/17 21:00 04/18/17 20:59 Voriconazole 230 mg/Sodium Chloride 100 ml @ 66.667 mls/ hr Q12H IV 03/20/17 16:00 03/26/17 15:59 Miscellaneous Information (Pharmacy Consult) 1 ea UD PRN N/A 03/19/17 15:45 04/18/17 15:44 Azithromycin 500 mg/Dextrose 255 ml @ 125 mls/hr DAILY@1600 IV 03/20/17 16:00 03/26/17 15:59 Acyclovir Sodium 500 mg/Dextrose 110 ml @ 110 mls/hr Q8H IV 03/19/17 18:00 03/26/17 17:59 Piperacillin Sod/ Tazobactam Sod 3.375 gm/Dextrose 115 ml @ 28.75 mls/ hr Q8H IV 03/19/17 22:00 03/26/17 21:59 Vancomycin HCl 750 mg/Sodium Chloride 265 ml @ 125 mls/hr Q14H IV 03/20/17 06:00 03/26/17 05:59 Piperacillin Sod/ Tazobactam Sod (Consult) 1 ea UD PRN N/A 03/19/17 16:30 04/18/17 16:29 Vancomycin HCl (Consult) 1 ea UD PRN N/A 03/19/17 16:30 04/18/17 16:29
[2017-03-19] MEDS: SODIUM CHLORIDE 7% 4 ML NEB INH SCH (19:12)
[2017-03-19 19:14] LABS: INFLUENZA A PCR Neg for Influ A (NEG); INFLUENZA B PCR Neg for Influ B (NEG)
[2017-03-19] MEDS: ACYCLOVIR SOD INJ 500 MG in DEXTROSE 5% 100ML 100 ML IV SCH (19:28)
[2017-03-19] MEDS: METHYLPREDNISOLONE IV 40 MG in SYRINGE 0 ML IV SCH (19:29)
[2017-03-19] MEDS: PIPERACILL/TAZOBAC IV 3.375 GM in DEXTROSE 5% 100ML IV SCH (21:27)
--- NOTE | 2017-03-19 22:47 | EMERGENCY ROOM VISIT NOTE ---
History Report prepared by Malcom: Zoey Ahn Under the Supervision of: Dr. Manisha Diaz D.O. First contact with patient: 02:36 Chief Complaint: COUGH Stated Complaint: COUGH,TEMP OF 101.7-TRANSPLANT PATIENT Nursing Triage Summary: increasing cough x 2 days. pt complains of drainage down back of throat History of Present Illness The patient is a 71 year old male who presents to the Emergency Room with complaints of a worsening cough starting a few days ago. 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 He states that tonight he became short of breath. He reports that mucus drains from his nose into his throat and chest. He states that it's better when he lays down. He states that walking and standing make his shortness of breath worse. The patient denies ever having it this bad before and denies wearing O2 at home. He denies ever having pneumonia or CHF. The patient states that he once had fungus on his lungs, but only had fevers with that. The patient denies abnormal eating or drinking, leg cramping, leg swelling, and ankle swelling. His notes that his last platelet count was low last Monday. Source of History: patient, spouse/significant other Onset: a few days ago Position: other (global) Quality: other (global) Timing: worsening Modifying Factors (Worsening): other (walking and standing) Modifying Factors (Relieving): other (lying down) Associated Symptoms: + SOB, + abdominal pain Note: The patient complains of drainage in his throat and chest. The patient denies abnormal eating or drinking, leg cramping, leg swelling, and ankle swelling. Review of Systems See HPI for pertinent positives & negatives. A total of 10 systems reviewed and were otherwise negative. Past Medical & Surgical Medical Problems: (1) Hypothyroid (2) SOB (shortness of breath) on exertion Surgical Problems: (1) Aortic valve replaced (2) H/O stem cell transplant Family History Patient reports no known family medical history. Social History Smoking Status: Never Smoker Alcohol Use: none Drug Use: none Marital Status: Housing Status: lives with family Current/Historical Medications Scheduled Glimepiride (Glimepiride), 1 MG PO QID Levothyroxine Sodium (Levothyroxine Sodium), 50 MCG PO BID Liothyronine Sodium (Cytomel), 10 MCG PO BID Metoprolol Tartrate (Lopressor) (Lopressor), 12.5 MG PO BID Allergies Coded Allergies: No Known Allergies (Unverified , 08/07/13) Physical Exam Vital Signs Date Time Temp Pulse Resp B/P (MAP) Pulse Ox O2 Delivery O2 Flow Rate FiO2 03/19/17 05:36 73 18 103/72 92 Room Air 2.0 03/19/17 05:12 79 03/19/17 04:55 72 18 116/77 96 Room Air 2.0 03/19/17 04:09 72 18 105/73 95 Room Air 03/19/17 03:33 36.9 75 18 113/75 94 Nasal Cannula 3.0 03/19/17 02:46 95 Nasal Cannula 3.0 03/19/17 01:58 37.1 75 18 112/72 90 Room Air 03/19/17 01:56 90 Room Air 03/19/17 01:45 80 03/19/17 01:30 37.1 87 18 99/63 89 Room Air Physical Exam HEENT: Head - normocephalic and atraumatic Pupils are equal, round, and reactive to light. Extraocular eye muscles are intact, and sclera are anicteric. Nose - moist nasal mucosa without discharge. Mouth - moist buccal mucosa. Oropharynx is nonerythematous and there is no tonsillar exudate or edema noted. Neck: Supple; no JVD, nuchal rigidity, cervical lymphadenopathy, or auscultated bruits. Heart: Regular rate and rhythm. There is a normal S1 and S2 with no murmurs, clicks, or gallops appreciated. Lungs: Rales in all lung campbell. Diminished breath sounds on the left more so than the right. Abdomen: Soft, completely nontender, nondistended, with good bowel sounds. There are no palpable pulsatile masses or hepatosplenomegaly. There is no guarding, rigidity, or rebound noted. Extremities: No evidence of cyanosis, clubbing, or edema. There are easily palpable peripheral pulses. Skin: warm and dry with good turgor and no rashes. Medical Decision & Procedures ER Provider Diagnostic Interpretation: CHEST x-RAY: Results were interpreted by me. Severe congestive heart failure. Mediport in place. Cardiomegaly. Laboratory Results 03/19/17 01:50 Red Blood Count 3.75, Mean Corpuscular Volume 90.4, Mean Corpuscular Hemoglobin 32.5, Mean Corpuscular Hemoglobin Concent 36.0, Mean Platelet Volume 11.2 03/19/17 01:50 Test 03/19/17 01:50 03/19/17 03:03 03/19/17 03:45 03/19/17 03:58 White Blood Count 5.98 K/uL (4.8-10.8) Red Blood Count 3.75 M/uL (4.7-6.1) Hemoglobin 12.2 g/dL (14.0-18.0) Hematocrit 33.9 % (42-52) Mean Corpuscular Volume 90.4 fL (80-100) Mean Corpuscular Hemoglobin 32.5 pg (25-34) Mean Corpuscular Hemoglobin Concent 36.0 g/dl (32-36) Platelet Count 32 K/uL (130-400) Mean Platelet Volume 11.2 fL (7.4-10.4) RDW Standard Deviation 44.0 fL (36.4-46.3) RDW Coefficient of Variation 13.3 % (11.5-14.5) Neutrophils % (Manual) 51.3 % Lymphocytes % (Manual) 18.3 % Variant Lymphocytes % (manual) 26.1 % Monocytes % (Manual) 4.3 % Neutrophils # (Manual) 3.07 K/uL (1.4-6.5) Total Absolute Neutrophils 3.07 K/uL (1.4-6.5) Lymphocytes # (Manual) 1.09 K/uL (1.2-3.4) Absolute Variant Lymphocytes 1.56 K/uL Total Absolute Lymphocytes 2.66 K/uL (1.2-3.4) Monocytes # (Manual) 0.26 K/uL (0.11-0.59) Echinocytes 1+ Prothrombin Time 11.3 SECONDS (9.0-12.0) Prothromb Time International Ratio 1.1 (0.9-1.1) Activated Partial Thromboplast Time 28.3 SECONDS (21.0-31.0) Partial Thromboplastin Ratio 1.1 Anion Gap 6.0 mmol/L (3-11) Est Creatinine Clear Calc Drug Dose 62.8 ml/min Estimated GFR () 96.7 Estimated GFR (Non- 83.5 BUN/Creatinine Ratio 19.1 (10-20) Calcium Level 8.5 mg/dl (8.5-10.1) Total Bilirubin 0.8 mg/dl (0.2-1) Aspartate Amino Transf (AST/SGOT) 98 U/L (15-37) Alanine Aminotransferase (ALT/SGPT) 121 U/L (12-78) Alkaline Phosphatase 324 U/L (45-117) Total Creatine Kinase 36 U/L (39-308) Creatine Kinase MB < 0.5 ng/ml (0.5-3.6) Troponin I < 0.015 ng/ml (0-0.045) Total Protein 6.5 gm/dl (6.4-8.2) Albumin 2.8 gm/dl (3.4-5.0) Globulin 3.7 gm/dl (2.5-4.0) Albumin/Globulin Ratio 0.8 (0.9-2) Bedside Lactic Acid Venous 0.78 mmol/L (0.90-1.70) Creatine Kinase MB Ratio (0-3.0) Urine Color DK YELLOW Urine Appearance CLEAR (CLEAR) Urine pH 5.0 (4.5-7.5) Urine Specific [place] 1.029 (1.000-1.030) Urine Protein 1+ (NEG) Urine Glucose (UA) NEG (NEG) Urine Ketones TRACE (NEG) Urine Occult Blood NEG (NEG) Urine Nitrite NEG (NEG) Urine Bilirubin NEG (NEG) Urine Urobilinogen NEG (NEG) Urine Leukocyte Esterase NEG (NEG) Urine WBC (Auto) 1-5 /hpf (0-5) Urine RBC (Auto) 0-4 /hpf (0-4) Urine Hyaline Casts (Auto) 1-5 /lpf (0-5) Urine Epithelial Cells (Auto) 5-10 /lpf (0-5) Urine Bacteria (Auto) NEG (NEG) Laboratory results per my review. Medications Administered Medications (Trade) Dose Ordered Sig/Keeley Route Start Time Stop Time Status Last Admin Dose Admin Furosemide (Lasix Inj) 40 mg NOW STAT IV 03/19/17 03:47 03/19/17 03:48 DC 03/19/17 04:05 40 MG Procedure 0347: Ordered Lasix Inj 40 mg IV. ED Course 0248: Past medical records reviewed. The patient was evaluated in room B3B. A complete history and physical exam was performed. Per past medical records, the patient was here in 2013 with CHF. He was initiated and labs are drones above. The patient had chest x-ray as described above. 0347: Ordered Lasix Inj 40 mg IV. 0348: I reevaluated the patient and he is doing well. He has urinated multiple times and states that he is feeling better. 0419: Discussed the patient's case with Dr. Akers. The patient will be evaluated for further management. 0551: I reevaluate the patient and updated him on his test results. Medical Decision The patient is a 71 year old male who presents to the Emergency Room with complaints of a worsening cough and shortness of breath starting a few days ago. Differential diagnoses include sepsis, pneumonia, CHF. LABS: White blood cell count 5.9 Mildly anemic with hemoglobin 12.2 Platelet count 32 Lactic acid 07. Normal renal function Glucose 147 AST 98 ALT 121 Alk-Phos 324 BNP 716 Negative troponin This is a 71-year-old male patient with a history of AML presents to the emergency department with increasing shortness of breath and cough. The patient has undergone a stem cell transplant approximately 6 months ago with his last chemotherapy at that time. Over the past 2-3 days, the patient has developed a cough with no fever and increasing shortness of breath. He states that when he rests or lays down the symptoms seemed to improve but when he stands up and walks he gets extreme shortness of breath. On chest x-ray, there appears to be pulmonary edema or congestive heart failure worse on the left than the right. On lung exam, the patient has rails. However, he has no evidence of peripheral edema or JVD. I spent some time talking to the patient and his about the presenting symptoms, labs and chest x-ray. He did receive IV Lasix with some improvement in his symptoms. The patient will need CT scan of the chest to further diagnose the etiology of the lung findings as well as an echocardiogram. I discussed the case with the [facility] Hospitalist and they will violate for a little management. Medication Reconcilliation Current Medication List: was personally reviewed by me Blood Pressure Screening Patient's blood pressure: Normal blood pressure Blood pressure disposition: Did not require urgent referral Consults Time Called: [phone] Consulting Physician: Dr. Akers Returned Call: [phone] Discussed the patient's case with Dr. Akers. The patient will be evaluated for further management. Impression Primary Impression: Pulmonary edema Additional Impression: Thrombocytopenia Scribe Attestation The scribe's documentation has been prepared under my direction and personally reviewed by me in its entirety. I confirm that the note above accurately reflects all work, treatment, procedures, and medical decision making performed by me. Departure Information Dispostion Being Evaluated By Hospitalist Referrals Tom Rogers M.D. (PCP) Patient Instructions [facility] Problem Qualifiers Primary Impression: Pulmonary edema Chronicity: acute Qualified Codes: J81.0 - Acute pulmonary edema
[2017-03-20] VITALS (12 sets, daily range): BP systolic 96–107; BP diastolic 55–66; PULSE 64–94; TEMP 36.4–36.7; O2SAT 89–95; Ht 162.6 cm; Wt 57.6 kg
[2017-03-20] MEDS: ACYCLOVIR SOD INJ 500 MG in DEXTROSE 5% 100ML 100 ML IV SCH ×3 (02:00→17:49)
[2017-03-20] MEDS: SODIUM CHLORIDE 0.9% IV SCH (04:41)
[2017-03-20] MEDS: VORICONAZOLE IV SCH (04:41)
[2017-03-20] MEDS: PIPERACILL/TAZOBAC IV 3.375 GM in DEXTROSE 5% 100ML IV SCH ×2 (05:59→16:00)
[2017-03-20] MEDS ORDERED: VANCOMYCIN INJ 750 MG in SODIUM CHLORIDE 0.9% 250ML 250 ML IV SCH (06:00)
[2017-03-20] MEDS: ALBUT/IPRATROP 3MG/0.5MG NEB 3 ML VIAL INH SCH ×4 (07:01→19:49)
[2017-03-20] MEDS: SODIUM CHLORIDE 7% 4 ML NEB INH SCH ×3 (07:01→19:58)
[2017-03-20 07:12] LABS: ESTIMATED AVERAGE GLUCOSE 154 mg/dl; HA1C FLAG Normal (Normal)
[2017-03-20 07:30] LABS: HEMATOCRIT 33.7 % (42-52); MEAN CELL VOLUME 90.1 fL (80-100); MEAN CORPUSCULAR HEMOGLOBIN 31.6 pg (25-34); PLATELET COUNT 31 K/uL (130-400); RED BLOOD COUNT 3.74 M/uL (4.7-6.1); WHITE BLOOD COUNT 3.73 K/uL (4.8-10.8)
[2017-03-20 07:35] LABS: COMPLETE YES; HYPERSEGMENTED POLYS 1+; LYMPH % 32.4 %; LYMPH ABS # 1.21 K/uL (1.2-3.4); MONO % 3.5 %; NEUT % 64.1 %; PLT ESTIMATE DECREASED
[2017-03-20 07:52] LABS: BUN/CREATININE RATIO 21.4 (10-20); CALCIUM 8.2 mg/dl (8.5-10.1); CREATININE 1.08 mg/dl (0.60-1.40); MAGNESIUM 2.2 mg/dl (1.8-2.4); THYROID STIMULATING HORMONE 0.317 uIu/ml (0.300-4.500)
[2017-03-20 08:13] LABS: BETA-HYDROXYBUTYRATE 4.66 mg/dL (0.2-2.81)
--- NOTE | 2017-03-20 08:54 | Clinical Documentation Query ---
CLINICAL DOCUMENTATION QUERY 71 year old male who presents to the Emergency Room with complaints of a worsening cough Query #1/2 In your clinical opinion is this patient being managed for: ( ) Candidal vs. Staphylococcal vs. Viral vs. Gram negative pneumonia treated with IV Voriconazole, IV Azithromycin, IV Vancomycin, & IV Acyclovir ( ) Not Agree ( ) Other explanation of clinical findings (Please Explain) ( ) Unable to determine (Please Define) ( ) Need to Discuss The medical record reflects the following clinical findings, treatment, and risk factors. Clinical Indicators: Progress note 03/19 most likely secondary to atypical pneumonia/infectious etiology or interstitial fibrosis as per the CT chest Treatment: IV Lasix, O2, IV Voriconazole, IV Azithromycin, IV Vancomycin, IV Solumedrol, IV Acyclovir, Risk Factors: STEM cell transplant status, hx of fungal pneumonia, Query #2/2 This patient is being treated with IV Lasix daily. In your clinical opinion is this patient being managed for: ( ) Acute preserved EF heart failure evidenced by pulmonary edema treated with IV Lasix in setting of acute illness. ( ) Not Agree ( ) Other explanation of clinical findings (Please Explain) ( ) Unable to determine (Please Define) ( ) Need to Discuss The medical record reflects the following clinical findings, treatment, and risk factors. Clinical Indicators: Hypoxia 88%, CXR and Chest CT showing pneumonia vs. pulmonary edema. Treatment: IV Lasix daily Risk Factors: Age, AVR, acute illness, Please clarify and document your clinical opinion in the progress notes and discharge summary. Terms such as "probable", "suspected", "likely", "questionable", "possible", or "still to be ruled out" are acceptable. IF IN AGREEMENT, YOU MUST DOCUMENT ABOVE DIAGNOSTIC STATEMENT IN DAILY PROGRESS NOTES AND DISCHARGE SUMMARY. This document is not part of the patient's record. Thank You, Kyle Chinchilla, RAFAEL [phone]
[2017-03-20] MEDS ORDERED: FUROSEMIDE INJ 40 MG in SYRINGE 0 ML IV SCH (09:00)
[2017-03-20] MEDS: LIOTHYRONINE SODIUM 5 MCG TAB PO SCH (09:04)
[2017-03-20] MEDS: METHYLPREDNISOLONE IV 40 MG in SYRINGE 0 ML IV SCH (09:04)
[2017-03-20] MEDS: METOPROLOL TARTRATE 25 MG TAB PO SCH (09:05)
[2017-03-20] MEDS: ENOXAPARIN 40 MG/0.4 ML SYR SC SCH (09:05)
[2017-03-20] MEDS: LEVOTHYROXINE 50 MCG TAB PO SCH ×2 (09:06→16:10)
[2017-03-20] MEDS ORDERED: INSULIN GLARGINE SOLOSTAR 100 UNITS/ML 3 ML PEN SC SCH ×3 (09:30→21:00)
[2017-03-20] MEDS: INSULIN ASPART 100 UNITS/ML 3 ML PEN SC SCH ×2 (09:35→12:02)
--- NOTE | 2017-03-20 10:26 | Progress Note ---
Progress Note Date of Service Mar 20, 2017. Progress Note ID Consult Dictated #[id number] A/P: 1. B/L PNA -Will continue emperic antimicrobials -Check urine legionella, mycoplasma, CMV quant, IGRA -Follow cultures -See consult for further details -thank you
--- NOTE | 2017-03-20 11:16 | INFECT. DISEASE CONSULTATION ---
DATE OF CONSULTATION: 03/20/2017 REQUESTING PHYSICIAN: Dr. Gonzalez. HISTORY OF PRESENT ILLNESS: This is a 71-year-old gentleman who has a past medical history significant for AML. He did complete chemotherapy and this was discontinued due to a fungal infection in the lung. I am unable to obtain any additional information about this from the patient or his family. Old records were sent from [place] and [facility] and were reviewed without significant details regarding this infection. states that the chemotherapy was stopped and 2 years later he had remission of disease. At that time, he was seen at [facility] and underwent a stem cell transplant. He did tolerate this well. He has been on prophylactic fluconazole, Bactrim and acyclovir. He recently had a visit with his physicians this past Monday in [place]. He did develop hives and was noted to be thrombocytopenic, so his prophylactic medications were discontinued. He states over the last 3 days, he has had worsening dyspnea on exertion and significant dry nonproductive cough. He does not have any post-cough emesis. He did not have a flu shot this year but did have one last year. A flu swab here was negative. Sputum culture was obtained and is pending. Blood cultures are no growth to date. He was found to be hypoxic on arrival to the ER and was placed on nasal cannula oxygen. His current oxygen saturation is 93% on 4-1/2 liters. He does not require oxygen at home. He does have some intermittent chest pain with deep inspiration. He states overall he is feeling about the same. He has no significant improvement. He does have poor p.o. intake secondary to his cough. His states that he has lost 13 pounds within the past few weeks. His white blood cell count today is 3.7. His LFTs were elevated on admission and they have improved today. His AST is 75 and ALT is 122. He did have a gallbladder ultrasound which was unremarkable. He was given Levaquin in the Emergency Room, and upon admission, he was placed on vanco, Zosyn, azithromycin, voriconazole, Solu-Medrol and acyclovir. He is tolerating these antibiotics well. His chest x-ray in the ER showed bilateral patchy consolidation and a CAT scan of the chest was ordered at that time. This did show diffuse ground glass opacities. He has a questionable history of CMV which was treated after his chemotherapy. He does also have a history of an aortic valve replacement. He did have an echocardiogram yesterday which was negative for vegetation. His states that they will likely be transferred to [facility] today. He has been afebrile since admission. He currently denies any chest pain. He is not coughing on my examination. He has no nausea, vomiting or diarrhea. He has no abdominal pain. His appetite is poor. He has no urinary symptoms. Other than his hives, he denies any recent skin rashes. He has no myalgias or arthralgias. His remaining review of systems is reviewed and unremarkable. PAST MEDICAL HISTORY: Significant for AML, status post chemo and stem cell transplant, parotid tumor, type 2 diabetes, hypothyroidism. SURGICAL HISTORY: Significant for stem cell transplant, aortic valve replacement and parotid tumor resection. FAMILY HISTORY: Noncontributory. SOCIAL HISTORY: Negative for alcohol, drug use or tobacco use. He is and lives with his family. He denies any recent sick contacts. They have multiple grandchildren of varying ages. They deny any sick contacts. The states they have not been around any of the younger grandchildren in some time. He did not have a flu shot this year. His states he did have a Pneumovax but this was several years ago. He is unaware of his most recent pertussis vaccination but did not get vaccinated with the younger grandchildren. 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 He denies any history of prior testing for tuberculosis either through [facility] or PPD placement. ALLERGIES: He has no known drug allergies. CURRENT MEDICATIONS: Include voriconazole, azithromycin, Lantus, Lasix, vanco, Zosyn, Solu-Medrol, acyclovir, Lovenox, Synthroid, Cytomel, Lopressor, DuoNeb, Zofran, Tylenol. PHYSICAL EXAMINATION: VITAL SIGNS: He is afebrile, pulse 94, respiratory rate 20, blood pressure 100/59, oxygen saturation is 93% on 4-1/2 liters nasal cannula. GENERAL: He is awake, alert and oriented x3. He is in no acute distress. HEENT: Mucous membranes are moist. Extraocular muscles are intact. HEART: Regular. Murmur is noted. LUNGS: Have diminished breath sounds throughout. There is no wheezing or rhonchi. ABDOMEN: Soft and nondistended. EXTREMTIES: There is no edema. SKIN: Without rash. LABORATORY STUDIES: CBC today reveals a white blood cell count of 3.7, hemoglobin 11.8, platelets are 31. Chemistry panel reveals sodium of 135, potassium 4.0, chloride 102, bicarbonate 21, BUN 23, creatinine 1.0, glucose is 331. AST 75, ALT 122, alkaline phosphatase is 326. TSH is normal. Urinalysis is unremarkable. Flu swab is negative. Blood cultures from 03/19/2017 are no growth to date x2 sets. Repeat blood cultures were done at 3:30 yesterday and are pending. A sputum culture is pending. IMAGING: As above. ASSESSMENT AND PLAN: Bilateral pneumonia on differential is broad. He is on multiple medications to cover for both typical, atypical and hospital-acquired infections. He is also on voriconazole for a reported history of fungal pneumonia that cannot be confirmed with organism. He will remain on these antibiotics. Additional testing will be done for atypical pathogens as well as tuberculosis with his history of travel to [place], although this is less likely on the differential. He is likely to be transferred to [facility] later today. Otherwise, he will be followed along with you. Thank you for this consultation.
[2017-03-20] MEDS ORDERED: INSULIN ASPART 100 UNITS/ML 3 ML PEN SC ONE (11:45)
[2017-03-20] MEDS ORDERED: PHARMACY GLYCEMIC MGMT CONSULT PRN (13:28)
[2017-03-20] MEDS ORDERED: INSULIN GLARGINE SOLOSTAR 100 UNITS/ML 3 ML PEN SC ONE (14:00)
--- NOTE | 2017-03-20 15:16 | Pharmacy Progress Note ---
Glycemic Control Intl Consult Date of Service Mar 20, 2017. Scope Glycemic Pharmacist consulted by Dr Gonzalez on 03/20/17 for glycemic control and to write orders per [facility] inpatient glycemic control protocol Objective Weight (Kilograms): 57.600 Accuchecks BSG (last 24hrs): Test 03/19/17 16:08 03/19/17 21:08 03/20/17 06:33 03/20/17 06:49 Bedside Glucose 120 mg/dl (70-99) 244 mg/dl (70-99) 331 mg/dl (70-99) Random Glucose 353 mg/dl (70-99) Laboratory Data (last 24hrs) Test 03/20/17 06:33 Anion Gap 13.0 mmol/L BUN/Creatinine Ratio 21.4 Blood Urea Nitrogen 23 mg/dl Creatinine 1.08 mg/dl Hemoglobin A1c 7.0 % Potassium Level 4.0 mmol/L Sodium Level 135 mmol/L White Blood Count 3.73 K/uL Red Blood Count 3.74 M/uL Hemoglobin 11.8 g/dL Hematocrit 33.7 % Mean Corpuscular Volume 90.1 fL Mean Corpuscular Hemoglobin 31.6 pg Mean Corpuscular Hemoglobin Concent 35.0 g/dl Platelet Count 31 K/uL Neutrophils (%) (Auto) 64.1 % Lymphocytes (%) (Auto) 32.4 % Monocytes (%) (Auto) 3.5 % Eosinophils (%) (Auto) 0.0 % Basophils (%) (Auto) 0.0 % Neutrophils # (Auto) 2.39 K/uL Lymphocytes # (Auto) 1.21 K/uL Monocytes # (Auto) 0.13 K/uL Eosinophils # (Auto) 0.00 K/uL Basophils # (Auto) 0.00 K/uL HbA1c Test 03/20/17 06:33 Hemoglobin A1c 7.0 % (4.5-5.6) H Recent Pertinent Medications Outpatient Anti-diabetic Regimen: * Glimepiride 1 mg PO QID * A1c = 7.0 % 03/20/17 The patient is currently receiving: * Basal insulin: Lantus 5 units every 12 hours * Correctional Insulin: Novolog Correction per scale ACHS Goal Range: Low 140 mg/dL - High 180 mg/dL Correction Factor: 30 mg/dL/unit * Prandial insulin: Per carb ratio of 1 unit per 15 grams CHO consumed Risk Factors for Insulin Resistance: * Steroids: Solu-Medrol 40 mg IV q12 hours * Infection: possible pulmonary infection on Zosyn and voriconazole * Diet: type 2 diabetic diet Assessment & Plan ASSESSMENT: * ADA & AACE recommend a goal blood sugar range 140-180 mg/dl for the majority of critically ill & non-critically ill patients. However, more stringent targets may be selected in individual cases. Will utilize more stringent goal of 110-140mg/dl based on patient age & comorbidities. Additionally, tighter glycemic control is warranted to facilitate infection healing. * Mr Brady is a 71 y/o M with a PMH of stem cell transplant in September of 2016 , s/p AVR, and diabetes from chemotherapy who presented with a cough and respiratory infection. His blood sugars were initiatively elevated and then Solu -Medrol was started. The patient's fasting blood sugar was 331 mg/dL and 427 mg/ dL at lunch. The physician initially started Lantus 5 units SQ BID, first dose this morning. He received 8 units of Novolog with breakfast and 20 units with lunch. The patient's blood sugar remained above 400 mg/dL 2 hours after the dose of Novolog. Consulted with Dr Gonzalez and an insulin infusion was initiated. * It appears the patient is currently basal deficient. Will give additional 10 units (to make 15 units for this morning) and then schedule 15 units twice daily. Per the nurse, the patient's reports that the patient is very sensitive to steroids. PLAN FOR INPATIENT GLYCEMIC CONTROL: * Starting IV insulin infusion per moderate (moderate/severe) stress protocol - Goal Range 110 - 140 mg/dl * Holding outpatient oral diabetes medications * Basal insulin with LANTUS 15 SQ BID * Please note that the plan above was derived based on current level of insulin resistance and hospital stress. These recommendations are appropriate for inpatient admission only. Plan of care upon discharge will need to be reassessed to avoid potential outpatient hypo/hyperglycemia. Thank you.
[2017-03-20] MEDS ORDERED: INSULIN REGULAR 250 UNITS in SODIUM CHLORIDE 0.9% 250ML 250 ML IV SCH (15:30)
[2017-03-20] MEDS ORDERED: INSULIN HUMAN REGULAR IV BOLUS 1.5 UNIT in SYRINGE 0 ML IV SCH (15:30)
[2017-03-20] MEDS ORDERED: AZITHROMYCIN IV 500 MG in DEXTROSE 5% 250ML 250 ML IV SCH (16:00)
[2017-03-20] MEDS ORDERED: SODIUM CHLORIDE 0.9% IV SCH (16:00)
[2017-03-20] MEDS ORDERED: VORICONAZOLE IV SCH (16:00)
--- NOTE | 2017-03-20 16:51 | Discharge Summary ---
Discharge Summary Date of Service Mar 20, 2017. 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 Patient was found to be hypoxic at 89 on room air while in ED. She states he had mucus drainage and some runny nose. SOB is worse with exertion and denies any SOB at rest. Denies any history of CHF and never was on oxygen in the past. Denies any history of chest pain, orthopnea, PND, leg swelling, wheezing, dizziness, fever, chills, weakness, nausea, vomiting, diarrhea, dysuria. Also reports abdominal pain across the abdomen since 2 days with no aggravating/relieving factors, non radiating, currently no tenderness on exam. Physical Exam (per Admitting): General Appearance: WD/WN, no apparent distress Head: normocephalic, atraumatic Eyes: normal inspection, PERRL, EOMI, sclerae normal ENT: normal ENT inspection, hearing grossly normal Neck: supple, no JVD, trachea midline Respiratory/Chest: no respiratory distress, no accessory muscle use, + pertinent finding (Scattered rales, decreased breath sounds) Cardiovascular: regular rate, rhythm, no edema, + systolic murmur Abdomen/GI: normal bowel sounds, non tender, soft Back: normal inspection Extremities/Musculoskelatal: normal inspection, no pedal edema Neurologic/Psych: website admin II-XII nml as tested, no motor/sensory deficits, alert , normal mood/affect, oriented x 3 Skin: normal color, warm/dry Hospital Course ACUTE HYPOXIC RESPIRATORY FAILURE: -most likely secondary to atypical pneumonia/infectious etiology or interstitial fibrosis as per the CT chest -CT chest: showed diffuse ground glass airspace opacities with mild interlobular septal thickening. -has a prior hx of fungal Pneumonia, and also prior hx of CMV following stem cell transplant -oxygen titrated to keep sats above 90% -ABG showed 7.49/31/78 -Pulmonary consulted, appreciate recommendations: cultures ordered, patient was started on empiric voriconazole, acyclovir, zosyn, azithro, vanco; levaquin stopped; no bronch at this time related to low platelets and also not available for bronch -TTE: EF 55-60%, grade I diastolic dysfunction with no significant valvulopathy ; BNP normal, no orthopnea -was treated with lasix as well -IV solu-medrol 40mg BID started -Influenza negative -ID consulted, appreciate recommendations; -oxygen requirements have increased from 2L to 5L via NC -discussed the case with the patient's Transplant Medicine Physician in [place] , Dr. Rogers has accepted the patient in transfer whenever a bed becomes available -pending workup: blood and sputum cultures, legionella, CMV, Mycoplasma, Bordatella, Quantiferon gold HYPERGLYCEMIA: -likely related to steroids and multiple abx with dextrose solution -Glycemic pharmacy has been consulted, appreciate assistance; patient to be started on an insulin infusion TRANSAMINITIS: -mild abd pain -US limited shows few small gallstones, no ductal dilatation, no GB wall thickening -monitor LFTs, trending down today AML: S/P STEM CELL TRANSPLANT -last chemotherapy in September 2016 -presently not on any medications -follows with [facility] -recently discontinued medications (stopped on 03/15 due to thrombocytopenia) were Acyclovir, Bactrim, and Fluconazole -Hem/Onc consulted HTN: -stable -continue home meds HYPOTHYROIDISM: -continue Cytomel, Levothyroxine S/P PRIOR AV REPLACEMENT: -stable -no issues present on echocardiogram related to the valves DM TYPE II: induced by chemotherapy per patient -BSG AC and HS -continue correction scale insulin + lantus -hold home meds while in the hospital -HbA1c: 7.0% Total time spent on discharge = 41 This includes examination of the patient, discharge planning, medication reconciliation, and communication with other providers. Discharge Instructions None
--- NOTE | 2017-03-20 17:00 | Progress Note ---
Medicine Progress Note Date & Time of Visit: Mar 20, 2017 at 16:53. Subjective Patient states his breathing does feel worse today, he notes standing up or moving around make it worse but when sitting in bed he feels ok. No overnight events noted but oxygen requirement have crept up since yesterday. Had a long discussion with the patient and his , they are concerned about his status worsening and agree with transfer to [place] even though they prefer the convenience of [facility] being closer to home. All questions were answered. Objective Last 8 Hrs Date Time Temp Pulse Resp B/P (MAP) Pulse Ox O2 Delivery O2 Flow Rate FiO2 03/20/17 15:45 36.4 94 18 97/57 (70) 90 Nasal Cannula 3.0 03/20/17 15:32 73 14 95 Nasal Cannula 4.0 03/20/17 12:00 Nasal Cannula 5.0 03/20/17 11:47 80 95 03/20/17 11:18 36.4 71 20 96/61 (73) 95 4.0 03/20/17 11:13 69 14 93 Nasal Cannula 4.0 Physical Exam: GENERAL: Patient is in no acute distress. HEENT: No acute trauma, normocephalic atraumatic, mucous membranes moist, no nasal congestion, no scleral icterus. NECK: No stridor, trachea is midline. LUNGS: Rales bilaterally, no wheeze, occasional rhonchi; no use of accessory muscles, no chest wall tenderness HEART: Without murmurs gallops or rubs, regular rate and rhythm. ABDOMEN: Soft, nontender, bowel sounds positive EXTREMITIES: No cyanosis or edema, ROM grossly intact NEUROLOGIC: Oriented x 3, no acute motor or sensory deficits, no focal weakness. SKIN: No rash, no jaundice, no diaphoresis. Laboratory Results: Last 24 Hours Test 03/19/17 17:40 03/19/17 21:08 03/20/17 06:33 03/20/17 06:49 Influenza Type A (RT-PCR) Neg for Influ A Influenza Type B (RT-PCR) Neg for Influ B Bedside Glucose 244 mg/dl 331 mg/dl White Blood Count 3.73 K/uL Red Blood Count 3.74 M/uL Hemoglobin 11.8 g/dL Hematocrit 33.7 % Mean Corpuscular Volume 90.1 fL Mean Corpuscular Hemoglobin 31.6 pg Mean Corpuscular Hemoglobin Concent 35.0 g/dl Platelet Count 31 K/uL Neutrophils (%) (Auto) 64.1 % Lymphocytes (%) (Auto) 32.4 % Monocytes (%) (Auto) 3.5 % Eosinophils (%) (Auto) 0.0 % Basophils (%) (Auto) 0.0 % Neutrophils # (Auto) 2.39 K/uL Lymphocytes # (Auto) 1.21 K/uL Monocytes # (Auto) 0.13 K/uL Eosinophils # (Auto) 0.00 K/uL Basophils # (Auto) 0.00 K/uL RDW Standard Deviation 43.8 fL RDW Coefficient of Variation 13.2 % Immature Granulocyte % (Auto) 0.0 % Immature Granulocyte # (Auto) 0.00 K/uL Hypersegmented Polys 1+ Platelet Estimate DECREASED Sodium Level 135 mmol/L Potassium Level 4.0 mmol/L Chloride Level 102 mmol/L Carbon Dioxide Level 21 mmol/L Anion Gap 13.0 mmol/L Blood Urea Nitrogen 23 mg/dl Creatinine 1.08 mg/dl Est Creatinine Clear Calc Drug Dose 52.6 ml/min Estimated GFR () 80.7 Estimated GFR (Non- 69.7 BUN/Creatinine Ratio 21.4 Random Glucose 353 mg/dl Estimated Average Glucose 154 mg/dl Hemoglobin A1c 7.0 % Calcium Level 8.2 mg/dl Magnesium Level 2.2 mg/dl Total Bilirubin 0.5 mg/dl Direct Bilirubin 0.2 mg/dl Aspartate Amino Transf (AST/SGOT) 75 U/L Alanine Aminotransferase (ALT/SGPT) 122 U/L Alkaline Phosphatase 326 U/L Pro-B-Type Natriuretic Peptide 302 pg/ml Total Protein 6.3 gm/dl Albumin 2.4 gm/dl Beta-Hydroxybutyric Acid 4.66 mg/dL Thyroid Stimulating Hormone (TSH) 0.317 uIu/ml Test 03/20/17 12:17 03/20/17 16:00 Bedside Glucose 361 mg/dl Date/Time Source Procedure Growth Status 03/19/17 17:40 Nasal MRSA DNA Surveillance Screen - Final Specimen Negative for MRSA by DNA Probe Complete Assessment & Plan ACUTE HYPOXIC RESPIRATORY FAILURE: -most likely secondary to atypical pneumonia/infectious etiology or interstitial fibrosis as per the CT chest -CT chest: showed diffuse ground glass airspace opacities with mild interlobular septal thickening. -has a prior hx of fungal Pneumonia, and also prior hx of CMV following stem cell transplant -oxygen titrated to keep sats above 90% -ABG showed 7.49 -Pulmonary consulted, appreciate recommendations: cultures ordered, patient was started on empiric voriconazole, acyclovir, zosyn, azithro, vanco; levaquin stopped; no bronch at this time related to low platelets and also not available for bronch -TTE: EF 55-60%, grade I diastolic dysfunction with no significant valvulopathy ; BNP normal, no orthopnea -was treated with lasix as well -IV solu-medrol 40mg BID started -Influenza negative -ID consulted, appreciate recommendations; -oxygen requirements have increased from 2L to 5L via NC -discussed the case with the patient's Transplant Medicine Physician in [place] , Dr. Rogers has accepted the patient in transfer whenever a bed becomes available -pending workup: blood and sputum cultures, legionella, CMV, Mycoplasma, Bordatella, Quantiferon gold HYPERGLYCEMIA: -likely related to steroids and multiple abx with dextrose solution -Glycemic pharmacy has been consulted, appreciate assistance; patient to be started on an insulin infusion today -BHB +, Anion gap 13, bicarb 21 TRANSAMINITIS: -mild abd pain -US limited shows few small gallstones, no ductal dilatation, no GB wall thickening -monitor LFTs, trending down today AML: S/P STEM CELL TRANSPLANT -last chemotherapy in September 2016 -presently not on any medications -follows with [facility] -recently discontinued medications (stopped on 03/15 due to thrombocytopenia) were Acyclovir, Bactrim, and Fluconazole -Hem/Onc consulted HTN: -stable -continue home meds HYPOTHYROIDISM: -continue Cytomel, Levothyroxine S/P PRIOR AV REPLACEMENT: -stable -no issues present on echocardiogram related to the valves DM TYPE II: induced by chemotherapy per patient -BSG AC and HS -continue correction scale insulin + lantus -hold home meds while in the hospital -HbA1c: 7.0% Current Inpatient Medications: Current Inpatient Medications Medications (Trade) Dose Ordered Sig/Keeley Route Start Time Stop Time Status Last Admin Dose Admin Enoxaparin Sodium (Lovenox Inj) 40 mg DAILY SC 03/19/17 09:00 04/18/17 08:59 03/20/17 09:05 40 MG Acetaminophen (Tylenol Tab) 650 mg Q4H PRN PO 03/19/17 05:45 04/18/17 05:44 Ondansetron HCl (Zofran Inj) 4 mg Q6H PRN IV 03/19/17 05:45 04/18/17 05:44 Albuterol/ Ipratropium (Duoneb) 3 ml QIDR INH 03/19/17 08:00 04/18/17 07:59 03/20/17 15:31 3 ML Furosemide 40 mg/ Syringe 4 ml @ 4 mls/min DAILY IV 03/20/17 09:00 04/19/17 08:59 03/20/17 09:04 4 MLS/MIN Glucose (Glucose 40% Gel) 15-30 GRAMS 15 GRAMS... UD PRN PO 03/19/17 05:45 04/18/17 05:44 Glucose (Glucose Chew Tab) 4-8 Tablets 4 Tabl... UD PRN PO 03/19/17 05:45 04/18/17 05:44 Dextrose (Dextrose 50% 50ML Syringe) 25-50ML OF 50% DW IV FOR... UD PRN IV 03/19/17 05:45 04/18/17 05:44 Glucagon (Glucagon Inj) 1 mg UD PRN SQ 03/19/17 05:45 04/18/17 05:44 Levothyroxine Sodium (Synthroid Tab) 50 mcg BID@0700,1615 PO 03/19/17 09:00 04/18/17 08:59 03/20/17 16:10 50 MCG Liothyronine Sodium (Cytomel Tab) 10 mcg BID PO 03/19/17 09:00 04/18/17 08:59 03/20/17 09:04 10 MCG Metoprolol Tartrate (Lopressor Tab) 12.5 mg BID PO 03/19/17 09:00 04/18/17 08:59 03/20/17 09:05 12.5 MG Ioversol (Optiray 320) 100 ml UD PRN IV 03/19/17 06:45 03/23/17 06:44 Sodium Chloride (Sodium Chloride 7% Neb Solution) 4 ml BIDR INH 03/19/17 20:00 04/18/17 19:59 03/20/17 07:01 4 ML Methylprednisolone Sodium Succinate 40 mg/Syringe 0.64 ml @ 1.5 mls/min BID IV 03/19/17 21:00 04/18/17 20:59 03/20/17 09:04 1.5 MLS/MIN Voriconazole 230 mg/Sodium Chloride 100 ml @ 66.667 mls/ hr Q12H IV 03/20/17 16:00 03/26/17 15:59 03/20/17 16:04 66.667 MLS/HR Miscellaneous Information (Pharmacy Consult) 1 ea UD PRN N/A 03/19/17 15:45 04/18/17 15:44 Azithromycin 500 mg/Dextrose 255 ml @ 125 mls/hr DAILY@1600 IV 03/20/17 16:00 03/26/17 15:59 03/20/17 16:04 125 MLS/HR Acyclovir Sodium 500 mg/Dextrose 110 ml @ 110 mls/hr Q8H IV 03/19/17 18:00 03/26/17 17:59 03/20/17 09:06 110 MLS/HR Piperacillin Sod/ Tazobactam Sod 3.375 gm/Dextrose 115 ml @ 28.75 mls/ hr Q8H IV 03/19/17 22:00 03/26/17 21:59 03/20/17 16:00 28.75 MLS/HR Vancomycin HCl 750 mg/Sodium Chloride 265 ml @ 125 mls/hr Q14H IV 03/20/17 06:00 03/26/17 05:59 03/20/17 05:59 125 MLS/HR Piperacillin Sod/ Tazobactam Sod (Consult) 1 ea UD PRN N/A 03/19/17 16:30 04/18/17 16:29 Vancomycin HCl (Consult) 1 ea UD PRN N/A 03/19/17 16:30 04/18/17 16:29 Miscellaneous Information (Consult Glycemic Management Pharmacy) 1 ea UD PRN N/A 03/20/17 13:28 04/19/17 13:27 Insulin Glargine (Lantus Solostar Pen) 15 units BID SC 03/20/17 21:00 04/19/17 20:59 Insulin Human Regular 250 units/ Sodium Chloride 252.5 ml @ 0 mls/hr DAILY@1130 IV 03/20/17 15:30 11/15/17 15:29 03/20/17 16:29 1.4 MLS/HR Insulin Aspart (novoLOG ASPART) SLIDING SCALE [facility] SC 03/20/17 17:30 04/19/17 17:29
--- NOTE | 2017-03-20 17:05 | Discharge Instructions ---
Discharge Instructions Date of Service Mar 20, 2017. Admission Reason for Admission: Sob (Shortness Of Breath) On Exertion Discharge Discharge Diagnosis / Problem: Hypoxia, Respiratory failure Discharge Goals Goal(s): Therapeutic intervention Activity Recommendations Activity Level: Assistance Required Therapies: Physical Therapy, Occupational Therapy . Additional Information Patient informed of condition: Yes Advance Directives: No DNR: No Level of Care: Other Communicable Disease: No Prognosis: Stable Oxygen at (LPM): 5 Osman Catheter: No Current Hospital Diet Patient's current hospital diet: AHA Diet (Heart Healthy), Diabetes Type 2 Diet Discharge Diet Recommended Diet: AHA Diet (Heart Healthy), Diabetes Type 2 Diet Pending Studies Studies pending at discharge: yes List of pending studies: Serologies: infectious disease workup Laboratory Results Hemoglobin A1c Test 03/20/17 06:33 Range/Units Estimated Average Glucose 154 mg/dl Hemoglobin A1c 7.0 H 4.5-5.6 % Medical Emergencies . Who to Call and When: Medical Emergencies: If at any time you feel your situation is an emergency, please call 911 immediately. . Non-Emergent Contact Non-Emergency issues call your: Hospital Doctor . . "Provider Documentation" section prepared by Deena Gonzalez. . Core Measure Problem Core Measures: None
[2017-03-20] MEDS ORDERED: INSULIN ASPART 100 UNITS/ML 3 ML PEN SC SCH (17:30)
--- NOTE | 2017-03-20 17:43 | Pulmonology Progress Note ---
Pulmonary Progress Note Date of Service Mar 20, 2017. Attending Dr. Dean Subjective Reports feeling more dyspneic with associated paroxysm of dry cough this AM. O2 increased to 4.5LPM with symptomatic improvement. Now reports improvement in ability to take a deep breath. Tolerating nebulizers without difficulty but reports they are not palliative. Denies any chest pain, pleuritic pain, myalgias , bleeding/bruising, GI pain or dysphagia. Notes decreased appetite and mild loose stools. Objective 71-yo male admitted to [facility] 03/19/17 with 3-day history of dyspnea on minimal exertion and dry cough. W/U notable for thrombocytopenia, hypoxia and transaminitis. Of note, he had previously discontinued acyclovir and Bactrim 2/ [address] notable for diffuse GG opacities. Echocardiogram described grade I diastolic dysfunction but no obvious valvular dysfunction. AB.49/pCO2 31/70- 21%/HCO3: 23. PMHx: AML (s/p doxorubicin & cytarabine last 09/2016), h/o bovine AVR, h/o CMV and fungal pneumonia (organism unknown). - Induced Sputum: pending - Beta 1,3 D-glucan: pending - Current ID regimen (with consultation pending): pip-tazo, vancomycin, voriconazole, azithromycin and acyclovir - Methylprednisone: 40mg BID Physical Exam: Constitutional: Well developed elderly male lying in hospital bed. No acute distress Head: + facial symmetry Eyes: EOMi, PERRLA, no injection Mouth: Moist mucous membranes. [place] teeth. No erythema or exudate Respiratory: Non-labored respirations. O2 via NC. Diminished BS at bases. No rales, rhonchi or wheeze. CV: Regular rate. II/ systolic murmur. Warm and perfused peripherally. +2 DP bilaterally GI: Soft, active bowel sounds MSK/Extremities: moving and developed symmetrically. No calf tenderness or edema Neurologic: A&O. Good data recall. Appropriate affect. Assessment & Plan - Continue broad-spectrum coverage and would recommend steroid taper tomorrow as tolerated - Patient in process for transfer to [place] today Patient was seen case reviewed and spoke to Dr. Osman about this case as well. As the patient is status post stem-cell transplant visit were increased risk for multiple infections I do agree with current antibiotic, antifungal and antiviral therapy at this time. It does appear the patient is to be transferred to [place] later on this afternoon or evening. Data Medications: Current Inpatient Medications Medications (Trade) Dose Ordered Sig/Keeley Route Start Time Stop Time Status Last Admin Dose Admin Enoxaparin Sodium (Lovenox Inj) 40 mg DAILY SC 03/19/17 09:00 04/18/17 08:59 03/20/17 09:05 40 MG Acetaminophen (Tylenol Tab) 650 mg Q4H PRN PO 03/19/17 05:45 04/18/17 05:44 Ondansetron HCl (Zofran Inj) 4 mg Q6H PRN IV 03/19/17 05:45 04/18/17 05:44 Albuterol/ Ipratropium (Duoneb) 3 ml QIDR INH 03/19/17 08:00 04/18/17 07:59 03/20/17 07:01 3 ML Furosemide 40 mg/ Syringe 4 ml @ 4 mls/min DAILY IV 03/20/17 09:00 04/19/17 08:59 03/20/17 09:04 4 MLS/MIN Insulin Aspart (novoLOG ASPART) SLIDING SCALE If C... ACHS SC 03/19/17 07:00 04/18/17 06:59 03/20/17 09:35 8 UNITS Glucose (Glucose 40% Gel) 15-30 GRAMS 15 GRAMS... UD PRN PO 03/19/17 05:45 04/18/17 05:44 Glucose (Glucose Chew Tab) 4-8 Tablets 4 Tabl... UD PRN PO 03/19/17 05:45 04/18/17 05:44 Dextrose (Dextrose 50% 50ML Syringe) 25-50ML OF 50% DW IV FOR... UD PRN IV 03/19/17 05:45 04/18/17 05:44 Glucagon (Glucagon Inj) 1 mg UD PRN SQ 03/19/17 05:45 04/18/17 05:44 Levothyroxine Sodium (Synthroid Tab) 50 mcg BID@0700,1615 PO 03/19/17 09:00 04/18/17 08:59 03/20/17 09:06 50 MCG Liothyronine Sodium (Cytomel Tab) 10 mcg BID PO 03/19/17 09:00 04/18/17 08:59 03/20/17 09:04 10 MCG Metoprolol Tartrate (Lopressor Tab) 12.5 mg BID PO 03/19/17 09:00 04/18/17 08:59 03/20/17 09:05 12.5 MG Ioversol (Optiray 320) 100 ml UD PRN IV 03/19/17 06:45 03/23/17 06:44 Sodium Chloride (Sodium Chloride 7% Neb Solution) 4 ml BIDR INH 03/19/17 20:00 04/18/17 19:59 03/20/17 07:01 4 ML Methylprednisolone Sodium Succinate 40 mg/Syringe 0.64 ml @ 1.5 mls/min BID IV 03/19/17 21:00 04/18/17 20:59 03/20/17 09:04 1.5 MLS/MIN Voriconazole 230 mg/Sodium Chloride 100 ml @ 66.667 mls/ hr Q12H IV 03/20/17 16:00 03/26/17 15:59 Miscellaneous Information (Pharmacy Consult) 1 ea UD PRN N/A 03/19/17 15:45 04/18/17 15:44 Azithromycin 500 mg/Dextrose 255 ml @ 125 mls/hr DAILY@1600 IV 03/20/17 16:00 03/26/17 15:59 Acyclovir Sodium 500 mg/Dextrose 110 ml @ 110 mls/hr Q8H IV 03/19/17 18:00 03/26/17 17:59 03/20/17 09:06 110 MLS/HR Piperacillin Sod/ Tazobactam Sod 3.375 gm/Dextrose 115 ml @ 28.75 mls/ hr Q8H IV 03/19/17 22:00 03/26/17 21:59 03/20/17 05:59 28.75 MLS/HR Vancomycin HCl 750 mg/Sodium Chloride 265 ml @ 125 mls/hr Q14H IV 03/20/17 06:00 03/26/17 05:59 03/20/17 05:59 125 MLS/HR Piperacillin Sod/ Tazobactam Sod (Consult) 1 ea UD PRN N/A 03/19/17 16:30 04/18/17 16:29 Vancomycin HCl (Consult) 1 ea UD PRN N/A 03/19/17 16:30 04/18/17 16:29 Insulin Glargine (Lantus Solostar Pen) 5 units BID SC 03/20/17 09:30 04/19/17 09:29 Vital Signs: Date Time Temp Pulse Resp B/P (MAP) Pulse Ox O2 Delivery O2 Flow Rate FiO2 03/20/17 07:42 36.5 94 20 100/59 (73) 93 4.5 03/20/17 07:01 64 16 95 Nasal Cannula 4.0 03/20/17 04:17 36.4 70 19 104/65 (78) 94 Room Air 03/20/17 04:00 Nasal Cannula 4.0 03/20/17 00:34 36.7 64 17 107/66 (80) 93 Room Air 03/20/17 00:00 Nasal Cannula 4.0 03/19/17 20:06 37.0 106 18 104/63 (77) 89 Nasal Cannula 4.0 03/19/17 20:00 Nasal Cannula 4.0 03/19/17 19:13 74 16 91 Nasal Cannula 4.0 03/19/17 16:04 36.7 79 20 105/68 (80) 91 Room Air 4.0 03/19/17 16:00 93 Nasal Cannula 4.0 03/19/17 15:15 86 16 95 Nasal Cannula 3.0 03/19/17 12:00 93 Nasal Cannula 2.0 03/19/17 11:54 36.7 74 16 112/72 (85) 93 Nasal Cannula Laboratory Results: Last 24 Hours Test 03/19/17 10:49 03/19/17 11:39 03/19/17 11:40 03/19/17 15:27 Pro-B-Type Natriuretic Peptide 606 pg/ml Arterial Blood pH 7.49 Arterial Blood Partial Pressure CO2 31 mmHg Arterial Blood Partial Pressure O2 78 mm/Hg Arterial Blood HCO3 23 mmol/L Arterial Blood Oxygen Saturation 94.9 % Arterial Blood Base Excess 0.4 mEq/L Arterial Blood Gas Delivery ROOM AIR Edgar Test POS Bedside Glucose 261 mg/dl Test 03/19/17 16:08 03/19/17 17:40 03/19/17 21:08 03/20/17 06:33 Bedside Glucose 120 mg/dl 244 mg/dl Influenza Type A (RT-PCR) Neg for Influ A Influenza Type B (RT-PCR) Neg for Influ B White Blood Count 3.73 K/uL Red Blood Count 3.74 M/uL Hemoglobin 11.8 g/dL Hematocrit 33.7 % Mean Corpuscular Volume 90.1 fL Mean Corpuscular Hemoglobin 31.6 pg Mean Corpuscular Hemoglobin Concent 35.0 g/dl Platelet Count 31 K/uL Neutrophils (%) (Auto) 64.1 % Lymphocytes (%) (Auto) 32.4 % Monocytes (%) (Auto) 3.5 % Eosinophils (%) (Auto) 0.0 % Basophils (%) (Auto) 0.0 % Neutrophils # (Auto) 2.39 K/uL Lymphocytes # (Auto) 1.21 K/uL Monocytes # (Auto) 0.13 K/uL Eosinophils # (Auto) 0.00 K/uL Basophils # (Auto) 0.00 K/uL RDW Standard Deviation 43.8 fL RDW Coefficient of Variation 13.2 % Immature Granulocyte % (Auto) 0.0 % Immature Granulocyte # (Auto) 0.00 K/uL Hypersegmented Polys 1+ Platelet Estimate DECREASED Sodium Level 135 mmol/L Potassium Level 4.0 mmol/L Chloride Level 102 mmol/L Carbon Dioxide Level 21 mmol/L Anion Gap 13.0 mmol/L Blood Urea Nitrogen 23 mg/dl Creatinine 1.08 mg/dl Est Creatinine Clear Calc Drug Dose 52.6 ml/min Estimated GFR () 80.7 Estimated GFR (Non- 69.7 BUN/Creatinine Ratio 21.4 Random Glucose 353 mg/dl Estimated Average Glucose 154 mg/dl Hemoglobin A1c 7.0 % Calcium Level 8.2 mg/dl Magnesium Level 2.2 mg/dl Total Bilirubin 0.5 mg/dl Direct Bilirubin 0.2 mg/dl Aspartate Amino Transf (AST/SGOT) 75 U/L Alanine Aminotransferase (ALT/SGPT) 122 U/L Alkaline Phosphatase 326 U/L Pro-B-Type Natriuretic Peptide 302 pg/ml Total Protein 6.3 gm/dl Albumin 2.4 gm/dl Beta-Hydroxybutyric Acid 4.66 mg/dL Thyroid Stimulating Hormone (TSH) 0.317 uIu/ml Test 03/20/17 06:49 Bedside Glucose 331 mg/dl
--- NOTE | 2017-03-20 18:01 | Medical Consult ---
Consultation Date of Consultation: Mar 20, 2017. Attending Physician: Deena Gonzalez D.O. 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 He was then transferred at [facility] for further evaluation and management. 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 As per the patient, he did quite well, has some low platelet count, had a bone marrow examination few months back, as per the patient the it showed very encouraging result, because of low platelet count, he was advised to discontinue all antibiotic and antiviral prophylactic therapy about 1 to 2 weeks back. Their plan was to monitor his platelet count, if his platelet count continues to go down, they are planning for bone marrow evaluation. For the last 2 to 3 days he started having increasing dry cough, shortness of breath, some nonspecific chest pain, he came to [facility] on 03/19/2017, requiring nasal cannula supplemental oxygen at 4 L per minute, earlier when he came he had a fever at home but now he does not have any fever, already saturation is around 90-95% on oxygen therapy at 3 to 5 liters/minute, I saw him at bedside, he was sitting quite comfortable in the chair, still complains of shortness of breath, dry cough present, denies any abdominal pain, no nausea, no vomiting, some mild diarrhea present since morning, no blood in the stool, denies any back pain or bone pain, no headache, no blurring of vision , no skin rash, no leg edema. Past medical history: -hypothyroidism, S/P aortic wall replacement. 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 - History of fungal pneumonia. Social history: Nonsmoker, denies any ETOH abuse. Family history: Nonsignificant. Allergies: Not known allergy, Medications at home: Levothyroxine, metoprolol, glimepiride, . Current medication: -insulin, azithromycin, voriconazole, Lasix, vancomycin, Zocin methylprednisolone, acyclovir, Lovenox prophylaxis, metoprolol, levothyroxine. Review of systems: Dry cough present, shortness of breath present, no nausea, no vomiting, no dysphagia, no soreness in the mouth, no sore throat, had a fever earlier which has improved, mild diarrhea but no blood in stool, denies any abdominal discomfort, no back pain or bone pain. No skin rash. No focal neurological symptoms. No blurring of vision. On exam: - Alert and oriented x3, thin built man, not in any distress. - HEENT: no icterus, no pallor, Throat: Normal. - Neck: No palpable cervical lymphadenopathy. - Chest: clear to auscultation. - Abdomen: soft, nontender, no hepatomegaly, no splenomegaly. - No focal neuro deficit. - Extremities: no finger clubbing, no leg edema. Blood workup: -WBC 5900, H&H of 12.2/33.9, MCV 90, Platelet count of 32,000, ANC 3000, absolute lymphocyte count 2600 (03/19/2017) -WBC 3700, H&H of 11.8/33.7, Platelet count of 31,000, (03/20/2017) -BUN/Creat: 20/1.0, blood sugar 353, -AST 98, ALT 121, alkaline phosphatase 3 at 24, Total bilirubin: 0.8 (2016) -AST 75, ALT 122, alkaline phosphatase 326. (03/19/2017) -PT 11.3, PTT 28.3. -urinalysis showed trace ketones. - influenza A and B by RT PCR--> negative. - CMV ,TB, mycoplasma, pertussis- Beta 1,3 Glucan --> pending. -blood culture--> so far no growth. -MRSA negative -CT scan of chest done on 03/19/2017 near diffuse ground-glass airspace opacities within both lungs with mild interval over septal thickening. Suggestive of atypical pneumonia or pulmonary edema. Prominent mediastinal lymph nodes which are likely to be reactive, no pleural effusion noted. Ultrasound of the abdomen done on 03/19/2017 should few small gallstones, no gallbladder thickening, no hydronephrosis, IVC patent, liver unremarkable. 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, had induction chemotherapy, unfortunately had recurrent disease in 2016, he was then followed by alarm mechanism adjuster at [facility], he had autologous stem cell transplantation earlier this year, as per the patient he had a very encouraging result, had mild thrombocytopenia, recently about 1 to 2 packs, he was advised to discontinue his immunosuppressive medications as well as prophylactic medications for bacteria as well as viruses, had fungal pneumonia earlier but now he is admitted for bilateral pneumonia, hypoxemia, requiring nasal cannula supplemental oxygen, hemodynamically stable, persistent thrombocytopenia noted, no neutropenia, no lymphocytopenia noted. Also noticed to have abnormal liver function test with normal bilirubin level. No abnormal finding noted in the ultrasound of the abdomen. Presently he is receiving broad-spectrum antibiotic, antiviral as antifungal medication, culture result pending. I spoke with the hospitalist earlier in the day, we decided to transfer him at [facility] where he has been treated for the last several months. He is likely to go at [facility] in the next few hours. Will see him back as needed. Thanks for the consultation. Dr. Geovanni Castellanos Hem/Onc (This note was completed using the dictation program Fluency Direct. As such, there may be misspellings, word substitutions, or other variations that should not change the essence of the clinical content of this encounter note. If there is need for further clarification, please direct questions to the provider listed above.) Past Medical/Surgical History Medical Problems: (1) Pulmonary edema Status: Acute (2) Thrombocytopenia Status: Acute Family History Patient reports no known family medical history. Social History Smoking Status: Never Smoker Alcohol Use: none Drug Use: none Marital Status: Housing Status: lives with family Allergies Coded Allergies: No Known Allergies (Unverified , 08/07/13) Current Inpatient Medications Current Inpatient Medications Medications (Trade) Dose Ordered Sig/Keeley Route Start Time Stop Time Status Last Admin Dose Admin Enoxaparin Sodium (Lovenox Inj) 40 mg DAILY SC 03/19/17 09:00 04/18/17 08:59 03/20/17 09:05 40 MG Acetaminophen (Tylenol Tab) 650 mg Q4H PRN PO 03/19/17 05:45 04/18/17 05:44 Ondansetron HCl (Zofran Inj) 4 mg Q6H PRN IV 03/19/17 05:45 04/18/17 05:44 Albuterol/ Ipratropium (Duoneb) 3 ml QIDR INH 03/19/17 08:00 04/18/17 07:59 03/20/17 15:31 3 ML Furosemide 40 mg/ Syringe 4 ml @ 4 mls/min DAILY IV 03/20/17 09:00 04/19/17 08:59 03/20/17 09:04 4 MLS/MIN Glucose (Glucose 40% Gel) 15-30 GRAMS 15 GRAMS... UD PRN PO 03/19/17 05:45 04/18/17 05:44 Glucose (Glucose Chew Tab) 4-8 Tablets 4 Tabl... UD PRN PO 03/19/17 05:45 04/18/17 05:44 Dextrose (Dextrose 50% 50ML Syringe) 25-50ML OF 50% DW IV FOR... UD PRN IV 03/19/17 05:45 04/18/17 05:44 Glucagon (Glucagon Inj) 1 mg UD PRN SQ 03/19/17 05:45 04/18/17 05:44 Levothyroxine Sodium (Synthroid Tab) 50 mcg BID@0700,1615 PO 03/19/17 09:00 04/18/17 08:59 03/20/17 16:10 50 MCG Liothyronine Sodium (Cytomel Tab) 10 mcg BID PO 03/19/17 09:00 04/18/17 08:59 03/20/17 09:04 10 MCG Metoprolol Tartrate (Lopressor Tab) 12.5 mg BID PO 03/19/17 09:00 04/18/17 08:59 03/20/17 09:05 12.5 MG Ioversol (Optiray 320) 100 ml UD PRN IV 03/19/17 06:45 03/23/17 06:44 Sodium Chloride (Sodium Chloride 7% Neb Solution) 4 ml BIDR INH 03/19/17 20:00 04/18/17 19:59 03/20/17 07:01 4 ML Methylprednisolone Sodium Succinate 40 mg/Syringe 0.64 ml @ 1.5 mls/min BID IV 03/19/17 21:00 04/18/17 20:59 03/20/17 09:04 1.5 MLS/MIN Voriconazole 230 mg/Sodium Chloride 100 ml @ 66.667 mls/ hr Q12H IV 03/20/17 16:00 03/26/17 15:59 03/20/17 16:04 66.667 MLS/HR Miscellaneous Information (Pharmacy Consult) 1 UD PRN N/A 03/19/17 15:45 04/18/17 15:44 Azithromycin 500 mg/Dextrose 255 ml @ 125 mls/hr DAILY@1600 IV 03/20/17 16:00 03/26/17 15:59 03/20/17 16:04 125 MLS/HR Acyclovir Sodium 500 mg/Dextrose 110 ml @ 110 mls/hr Q8H IV 03/19/17 18:00 03/26/17 17:59 03/20/17 17:49 110 MLS/HR Piperacillin Sod/ Tazobactam Sod 3.375 gm/Dextrose 115 ml @ 28.75 mls/ hr Q8H IV 03/19/17 22:00 03/26/17 21:59 03/20/17 16:00 28.75 MLS/HR Vancomycin HCl 750 mg/Sodium Chloride 265 ml @ 125 mls/hr Q14H IV 03/20/17 06:00 03/26/17 05:59 03/20/17 05:59 125 MLS/HR Piperacillin Sod/ Tazobactam Sod (Consult) 1 UD PRN N/A 03/19/17 16:30 04/18/17 16:29 Vancomycin HCl (Consult) 1 UD PRN N/A 03/19/17 16:30 04/18/17 16:29 Miscellaneous Information (Consult Glycemic Management Pharmacy) 1 UD PRN N/A 03/20/17 13:28 04/19/17 13:27 Insulin Glargine (Lantus Solostar Pen) 15 units BID SC 03/20/17 21:00 04/19/17 20:59 Insulin Human Regular 250 units/ Sodium Chloride 252.5 ml @ 0 mls/hr DAILY@1130 IV 03/20/17 15:30 04/19/17 15:29 03/20/17 16:29 1.4 MLS/HR Insulin Aspart (novoLOG ASPART) [facility] 03/20/17 17:30 04/19/17 17:29 Physical Exam Date Time Temp Pulse Resp B/P (MAP) Pulse Ox O2 Delivery O2 Flow Rate FiO2 03/20/17 16:00 Nasal Cannula 5.0 03/20/17 15:45 36.4 94 18 97/57 (70) 90 Nasal Cannula 3.0 03/20/17 15:32 73 14 95 Nasal Cannula 4.0 03/20/17 12:00 Nasal Cannula 5.0 03/20/17 11:47 80 95 03/20/17 11:18 36.4 71 20 96/61 (73) 95 4.0 03/20/17 11:13 69 14 93 Nasal Cannula 4.0 03/20/17 08:00 Nasal Cannula 5.0 03/20/17 07:42 36.5 94 20 100/59 (73) 93 4.5 03/20/17 07:01 64 16 95 Nasal Cannula 4.0 03/20/17 04:17 36.4 70 19 104/65 (78) 94 Room Air 03/20/17 04:00 Nasal Cannula 4.0 03/20/17 00:34 36.7 64 17 107/66 (80) 93 Room Air 03/20/17 00:00 Nasal Cannula 4.0 03/19/17 20:06 37.0 106 18 104/63 (77) 89 Nasal Cannula 4.0 03/19/17 20:00 Nasal Cannula 4.0 03/19/17 19:13 74 16 91 Nasal Cannula 4.0 Laboratory Results Last 24 Hours Test 03/19/17 21:08 03/20/17 06:33 03/20/17 06:49 03/20/17 11:07 Bedside Glucose 244 mg/dl 331 mg/dl 427 mg/dl White Blood Count 3.73 K/uL Red Blood Count 3.74 M/uL Hemoglobin 11.8 g/dL Hematocrit 33.7 % Mean Corpuscular Volume 90.1 fL Mean Corpuscular Hemoglobin 31.6 pg Mean Corpuscular Hemoglobin Concent 35.0 g/dl Platelet Count 31 K/uL Neutrophils (%) (Auto) 64.1 % Lymphocytes (%) (Auto) 32.4 % Monocytes (%) (Auto) 3.5 % Eosinophils (%) (Auto) 0.0 % Basophils (%) (Auto) 0.0 % Neutrophils # (Auto) 2.39 K/uL Lymphocytes # (Auto) 1.21 K/uL Monocytes # (Auto) 0.13 K/uL Eosinophils # (Auto) 0.00 K/uL Basophils # (Auto) 0.00 K/uL RDW Standard Deviation 43.8 fL RDW Coefficient of Variation 13.2 % Immature Granulocyte % (Auto) 0.0 % Immature Granulocyte # (Auto) 0.00 K/uL Hypersegmented Polys 1+ Platelet Estimate DECREASED Sodium Level 135 mmol/L Potassium Level 4.0 mmol/L Chloride Level 102 mmol/L Carbon Dioxide Level 21 mmol/L Anion Gap 13.0 mmol/L Blood Urea Nitrogen 23 mg/dl Creatinine 1.08 mg/dl Est Creatinine Clear Calc Drug Dose 52.6 ml/min Estimated GFR () 80.7 Estimated GFR (Non- 69.7 BUN/Creatinine Ratio 21.4 Random Glucose 353 mg/dl Estimated Average Glucose 154 mg/dl Hemoglobin A1c 7.0 % Calcium Level 8.2 mg/dl Magnesium Level 2.2 mg/dl Total Bilirubin 0.5 mg/dl Direct Bilirubin 0.2 mg/dl Aspartate Amino Transf (AST/SGOT) 75 U/L Alanine Aminotransferase (ALT/SGPT) 122 U/L Alkaline Phosphatase 326 U/L Pro-B-Type Natriuretic Peptide 302 pg/ml Total Protein 6.3 gm/dl Albumin 2.4 gm/dl Beta-Hydroxybutyric Acid 4.66 mg/dL Thyroid Stimulating Hormone (TSH) 0.317 uIu/ml Test 03/20/17 12:17 03/20/17 14:20 03/20/17 16:00 Bedside Glucose 417 mg/dl 361 mg/dl
[2017-03-21] MEDS ORDERED: INSULIN ASPART 100 UNITS/ML 3 ML PEN SC SCH
[2017-03-21] MEDS ORDERED: VANCOMYCIN TROUGH ONE (09:30)
[2017-03-22 14:32] LABS: QUANTIF TB AG-NIL <0.00 IU/ML; QUANTIFERON NIL 0.08 IU/ML
== END 2017-03-20 20:23 | disposition short-term general hospital (02) | DRG 193 ==
LOC: C.EDB 01:25 → C.2T 05:40 → ENRESERV 05:54
PROVIDERS: ADMIT Internal Medicine; ATTEND Internal Medicine
DX: J18.9 Pneumonia, unspecified organism (principal); J96.01 Acute respiratory failure with hypoxia; C92.00 Acute myeloblastic leukemia, not having achieved remission; Z94.84 Stem cells transplant status; E03.9 Hypothyroidism, unspecified; I10 Essential (primary) hypertension; E11.65 Type 2 diabetes mellitus with hyperglycemia; T38.0X5A Adverse effect of glucocorticoids and synthetic analogues, initial encounter; R74.0 Nonspecific elevation of levels of transaminase and lactic acid dehydrogenase [LDH]; Z79.899 Other long term (current) drug therapy; Z92.25 Personal history of immunosuppression therapy; Z95.2 Presence of prosthetic heart valve

== ENCOUNTER → 2017-09-11 | Outpatient (CLI) | payer OTHER, MEDICARE ==
[~2017-09-11] MED LIST changes: -ALBU1AER9 INH; -ASPCH81X PO; +GLIM1TAB2 PO; -HYDR25TA4 PO; -LEVO100T PO; +LEVO50TA6 PO; +LIOT5TAB PO; -SIMV20TA2 PO
[2017-09-11 14:36] LABS: ALBUMIN 3.4 gm/dl (3.4-5.0); ALT/SGPT 23 U/L (12-78); BLOOD UREA NITROGEN 18 mg/dl (7-18); CALCIUM 8.9 mg/dl (8.5-10.1); CARBON DIOXIDE 25 mmol/L (21-32); CHOLESTEROL 201 mg/dl (0-200); CREATININE 1.03 mg/dl (0.60-1.40); GLUCOSE 100 mg/dl (70-99); POTASSIUM 3.7 mmol/L (3.5-5.1); SODIUM 140 mmol/L (136-145)
[2017-09-11 14:45] LABS: ALKALINE PHOSPHATASE 77 U/L (45-117); AST/SGOT 20 U/L (15-37); LDL CHOLESTEROL CALCULATED 138 mg/dl; TOTAL PROTEIN 6.4 gm/dl (6.4-8.2)
== END | disposition home or self-care (01) ==
LOC: C.LAB1850 12:15
PROVIDERS: ATTEND Internal Medicine Endocrinology, Diabetes & Metabolism
DX: E03.9 Hypothyroidism, unspecified (principal); E11.65 Type 2 diabetes mellitus with hyperglycemia; E06.3 Autoimmune thyroiditis

== ENCOUNTER → 2017-10-03 | Day surgery (SDC) | payer OTHER, MEDICARE ==
[~2017-10-03] VITALS: Ht 162.6 cm; Wt 66.7 kg
[~2017-10-03] MED LIST changes: +COSYNTROPIN INJ 1 MCG in SYRINGE 0 ML IV SCH
[2017-10-03 07:58] VITALS: BP 120/76; PULSE 72; TEMP 36.7; O2SAT 98; Ht 162.6 cm; Wt 66.7 kg
[2017-10-03 09:19] VITALS: BP 137/81; PULSE 66; TEMP 36.6; O2SAT 99
[2017-10-03 09:52] VITALS: BP 129/78; PULSE 66; TEMP 36.7; O2SAT 98
== END | disposition home or self-care (01) ==
LOC: C.MTU 07:41
PROVIDERS: ATTEND Internal Medicine Endocrinology, Diabetes & Metabolism
DX: E06.3 Autoimmune thyroiditis (principal); E03.9 Hypothyroidism, unspecified

== ENCOUNTER 2018-01-05 15:13 | Inpatient (IN) | payer OTHER, MEDICARE ==
[~2018-01-05] VITALS: Ht 162.6 cm; Wt 58.0 kg
[~2018-01-05 15:13] MED LIST changes: -COSYNTROPIN INJ 1 MCG in SYRINGE 0 ML IV SCH; -GLIM1TAB2 PO; +INSHNI SQ; -LIOT5TAB PO; +LISI-730 PO; +LVQ750 PO; +PRD20 PO; +SPT/ PO; +VNTHFA/IN INH
[2018-01-05] MEDS ORDERED: SODIUM CHLORIDE 0.9% 1000ML 1,000 ML IV STA ×2 (15:33→17:01)
[2018-01-05] MEDS ORDERED: SODIUM CHLORIDE 0.9% 1000ML 250 ML IV STA (15:33)
[2018-01-05] MEDS ORDERED: FLUC200T4 PO (16:02)
[2018-01-05] MEDS ORDERED: SULF800T23 PO (16:02)
[2018-01-05] MEDS ORDERED: LEVO125T72 PO (16:02)
[2018-01-05] MEDS ORDERED: PRED20TA PO (16:02)
[2018-01-05] MEDS ORDERED: VNTHFA/IN INH (16:05)
[2018-01-05] MEDS ORDERED: INSPMPHMLG SQ (16:05)
[2018-01-05] MEDS ORDERED: INSDGI SC (16:08)
[2018-01-05] MEDS ORDERED: CRFL PO (16:11)
[2018-01-05] MEDS ORDERED: MISCCAP80 PO (16:11)
[2018-01-05] MEDS ORDERED: FAMO20TA11 PO (16:11)
--- NOTE | 2018-01-05 16:16 | EMERGENCY ROOM VISIT NOTE ---
History First contact with patient: 15:24 Chief Complaint: DIARRHEA Stated Complaint: DIARRHEA, WEAKNESS OF LEGS, FALLING DOWN, AB PAIN History of Present Illness The patient is a 72 year old male who presents to the Emergency Room with complaints of weakness and diarrhea. He has a history of bone marrow transplant and starting December 05 was started on a new chemotherapeutic med Lydia. He said shortly after starting, he had pain in his stomach and back. He has been weak and tired and could not walk. He stopped taking the medicine this past Monday. He was s seen at Monday at [place] where he is followed and he had blood work which looked good. His is concerned that he has had some diarrhea over last couple days and seems weaker. No blood loss in the diarrhea. No chest pain or shortness of breath. He fell today but there are no injuries. No focal numbness weakness. no headache neck pain or stiffness. He was treated for recent UTI however has no urinary symptoms at present. Source of History: patient, family Review of Systems As above. All other systems reviewed were negative unless otherwise stated in history. At least 10 were reviewed Past Medical/Surgical History Medical Problems: (1) AML (acute myeloid leukemia) (2) diarrhea, pancreatitis, acute renal failure, sepsis, abn LFT, hx of AML (3) Hypothyroid (4) SOB (shortness of breath) on exertion (5) Upper respiratory disease Surgical Problems: (1) Aortic valve replaced (2) H/O stem cell transplant Old medical records were reviewed. Nurse's notes were reviewed and I agree with. Family History Patient reports no known family medical history. Social History Smoking Status: Never Smoker Alcohol Use: none Drug Use: none Marital Status: Housing Status: lives with family Occupation Status: unemployed Current/Historical Medications Scheduled Fluconazole (Diflucan), 200 MG PO DAILY Insulin Glargine (Lantus), 10 UNITS SC QPM Insulin Human Lispro (Humalog), SQ TIDM Levothyroxine Sodium (Synthroid), 125 MCG PO DAILY Metoprolol Tartrate (Lopressor) (Lopressor), 12.5 MG PO BID Prednisone (Prednisone), 20 MG PO DAILY Probiotic Product (Probiotic), 1 CAP PO DAILY Sucralfate (Carafate), 10 ML PO ACHS Sulfa/Trimethoprim (Bactrim Ds 800MG/160MG), 1 TAB PO mon,mon, mon Scheduled PRN Albuterol Hfa (Ventolin Hfa), 2 PUFFS INH Q6H PRN for SOB/Wheezing Famotidine (Pepcid), 20 MG PO DAILY PRN for PRN Physical Exam Vital Signs Date Time Temp Pulse Resp B/P (MAP) Pulse Ox O2 Delivery O2 Flow Rate FiO2 01/05/18 18:30 127 20 140/97 97 Room Air 01/05/18 17:31 129 20 124/97 01/05/18 17:01 117 18 116/88 01/05/18 16:32 130 20 110/85 01/05/18 16:19 127 01/05/18 16:01 127 25 130/101 01/05/18 15:54 128 20 134/107 01/05/18 15:16 36.9 153 18 85/67 91 Room Air Physical Exam General: Well developed well nourished chronically ill-appearing older male who appears in no acute distress, breathing comfortably on room air. Normal speech HEENT: Normal cephalic atraumatic. Pupils are equal round and reactive to light. Sclera anicteric. Extraocular movements are intact. Oropharynx is pink with moist mucous membranes. No swelling of the mouth lips or tongue. Neck: Supple with a midline trachea. No meningeal signs or stiffness, no JVD or bruits. No Stridor. Chest: Clear to auscultation bilaterally. No wheezes or rhonchi. No increased work of breathing. A-Port in left chest. Heart: Regular rate and rhythm without murmurs or gallops. Abdomen: Soft nontender, nondistended without rebound guarding or rigidity. Extremities: No cyanosis clubbing or edema. No calf tenderness or assymetry Spine/Back. Non tender to palpation. No CVA tenderness Skin: Good turgor without rashes. Neurologic exam: Cranial nerves two through 12 are intact. Motor and sensation are intact and symmetrical throughout. Medical Decision & Procedures ER Provider Diagnostic Interpretation: Chest x-ray: No acute infiltrate failure or pneumothorax seen CT of abdomen and pelvis: Please refer to report. Gallstones and contracted gallbladder. Small amount of ascites. No bowel obstruct Laboratory Results 01/05/18 15:50 Red Blood Count 3.43, Mean Corpuscular Volume 84.8, Mean Corpuscular Hemoglobin 28.9, Mean Corpuscular Hemoglobin Concent 34.0 01/05/18 15:50 Test 01/05/18 15:50 01/05/18 16:02 01/05/18 16:04 White Blood Count 9.12 K/uL (4.8-10.8) Red Blood Count 3.43 M/uL (4.7-6.1) Hemoglobin 9.9 g/dL (14.0-18.0) Hematocrit 29.1 % (42-52) Mean Corpuscular Volume 84.8 fL (80-100) Mean Corpuscular Hemoglobin 28.9 pg (25-34) Mean Corpuscular Hemoglobin Concent 34.0 g/dl (32-36) Platelet Count 19 K/uL (130-400) RDW Standard Deviation 57.8 fL (36.4-46.3) RDW Coefficient of Variation 18.6 % (11.5-14.5) Neutrophils % (Manual) 59.2 % Lymphocytes % (Manual) 37.2 % Monocytes % (Manual) 2.7 % Myelocytes % 0.9 % Neutrophils # (Manual) 5.40 K/uL (1.4-6.5) Total Absolute Neutrophils 5.40 K/uL (1.4-6.5) Lymphocytes # (Manual) 3.39 K/uL (1.2-3.4) Total Absolute Lymphocytes 3.39 K/uL (1.2-3.4) Monocytes # (Manual) 0.25 K/uL (0.11-0.59) Myelocytes # 0.08 K/uL (0-0) Smudge Cells PRESENT Spherocytes 1+ Anion Gap 11.0 mmol/L (3-11) Est Creatinine Clear Calc Drug Dose 32.5 ml/min Estimated GFR () 47.7 Estimated GFR (Non- 41.1 BUN/Creatinine Ratio 34.1 (10-20) Calcium Level 7.3 mg/dl (8.5-10.1) Phosphorus Level 3.0 mg/dl (2.5-4.9) Magnesium Level 2.1 mg/dl (1.8-2.4) Total Bilirubin 0.5 mg/dl (0.2-1) Direct Bilirubin 0.3 mg/dl (0-0.2) Aspartate Amino Transf (AST/SGOT) 825 U/L (15-37) Alanine Aminotransferase (ALT/SGPT) 916 U/L (12-78) Alkaline Phosphatase 361 U/L (45-117) Total Protein 5.3 gm/dl (6.4-8.2) Albumin 2.3 gm/dl (3.4-5.0) Lipase 3051 U/L (73-393) Bedside Troponin I 0.270 ng/ml (0-0.045) Bedside Lactic Acid Venous 2.46 mmol/L (0.90-1.70) Medications Administered Medications (Trade) Dose Ordered Sig/Keeley Route Start Time Stop Time Status Last Admin Dose Admin Sodium Chloride 250 ml @ 999 mls/hr Q16M STAT IV 01/05/18 15:33 01/05/18 15:48 DC 01/05/18 15:53 999 MLS/HR Sodium Chloride 1,000 ml @ 100 mls/hr Q10H STAT IV 01/05/18 15:33 01/06/18 01:32 01/05/18 15:53 100 MLS/HR Cefepime HCl 2000 mg/Dextrose 122 ml @ 200 mls/hr NOW STAT IV 01/05/18 16:58 01/05/18 17:34 DC 01/05/18 17:58 200 MLS/HR Sodium Chloride 1,000 ml @ 999 mls/hr Q1H1M STAT IV 01/05/18 17:01 01/05/18 18:01 DC 01/05/18 17:40 999 MLS/HR ECG Per My Interpretation Indication: tachycardia Rate (beats per minute): 130 Rhythm: sinus tachycardia Comparison ECG Date: Change: Occasional PVC. Left atrial enlargement. Nonspecific ST and T-wave abnormalities. Compared to 10/30/2017 rate has increased Medical Decision Differential diagnosis includes: Dehydration, medication side effect, sepsis, electrolyte or metabolic abnormality, cardiac disease, electrolyte or metabolic abnormality, GI bleed. This patient has a complex medical history with a bone marrow transplant comes in after feeling weak and achy and having multiple complaints and start a new chemotherapeutic agent on December 05. He has had diarrhea over last couple days he has had no fever. At present, he has no complaints. He denies abdominal pain and back pain he has had this recently. He stopped taking this chemotherapeutic agent on Monday. He does look dry on exam and he is tachycardic he was noted to be hypotensive in triage however when this was rechecked he was asked on the hypertensive side. We did establish IV access by his A-Port. he was initially given a 250 cc IV normal saline bolus given his history of CHF and chest x-ray was obtained. Blood cultures were obtained multiple blood testing was obtained as well as EKG. He was reassessed frequently. His chest x-ray did not show CHF he was given a 1 liter IV normal saline bolus. his lactic acid was mildly elevated 2.5 . he has remained normotensive and her heart rate is coming down. He was empirically given cefepime 2 g IV to cover the possibility for infection/sepsis. His renal functions were elevated moderately likely prerenal. His LFTs were also moderately elevated as was his lipase. HE has no abdominal symptoms now. This may be related to his medications and he may have a pancreatitis from his meds. CAT scan shows a contracted gallbladder with stones. His white count is not elevated. He was noted to be thrombocytopenic at 17,000 which is slightly lower than he has been running. He has no active bleeding at present or anything to suggest needs acute platelet transfusion now. He has been typed and crossed in the event that he may need blood or platelets. His troponin is also mildly elevated. He has no chest pain or any definite ischemic EKG changes but this will need to be further monitored. His abdomen is benign at this point and he has nothing to suggest acute cholecystitis on exam. I think the patient needs to be admitted for further inpatient treatment and evaluation. I have consulted the [facility] admitting team as per the patient's request. Medication Reconcilliation Current Medication List: was personally reviewed by me Blood Pressure Screening Patient's blood pressure: Low blood pressure Impression Primary Impression: Dehydration Additional Impressions: Tachycardia Pancreatitis Elevated liver function tests Thrombocytopenia Elevated troponin Status post bone marrow transplant Critical Care I have personally spent greater than 30 minutes of critical care time in the direct management of this patient. This includes bedside care, interpretation of diagnostic studies, and testing, discussion with consultants, patient, and family members, and other required patient management activities. This 30 minutes is in excess of all separately billable procedures. Departure Information Referrals Dioni Pizarro M.D. (PCP) Patient Instructions My [facility] Problem Qualifiers
--- NOTE | 2018-01-05 16:41 | DIAGNOSTIC IMAGING REPORT ---
SINGLE VIEW CHEST CLINICAL HISTORY: Atypical chest pain. FINDINGS: An AP, portable, upright chest radiograph is compared to chest x-ray and chest CT dated 10/30/2017. The examination is degraded by portable technique and patient rotation. A left subclavian central venous infusion port is unchanged in position. The patient is status post midline sternotomy. The heart is normal for projection and there is atherosclerotic calcification of the thoracic aorta. The pulmonary mass culture is noncongested. Chronic interstitial thickening is similar to previous no airspace consolidation is identified. There is a trace left pleural effusion. No pneumothorax is seen. The skeletal structures are osteopenic. The bony thorax is grossly intact. IMPRESSION: 1. There is no airspace consolidation typical for pneumonia. 2. A trace left pleural effusion is suspected. Electronically signed by: Louis Draper M.D. 01/05/2018 4:40 PM Dictated Date/Time: 01/05/2018 4:37 PM
[2018-01-05 16:44] LABS: ALBUMIN 2.3 gm/dl (3.4-5.0); CALCIUM 7.3 mg/dl (8.5-10.1); CREATININE 1.66 mg/dl (0.60-1.40); POTASSIUM 3.2 mmol/L (3.5-5.1); TOTAL PROTEIN 5.3 gm/dl (6.4-8.2)
[2018-01-05 16:56] LABS: HEMATOCRIT 29.1 % (42-52); HEMOGLOBIN 9.9 g/dL (14.0-18.0); MEAN CELL VOLUME 84.8 fL (80-100); MEAN CORPUSCULAR HEMOGLOBIN 28.9 pg (25-34); PLATELET COUNT 19 K/uL (130-400); RED CELL DISTRIBUTION WIDTH CV 18.6 % (11.5-14.5); RED CELL DISTRIBUTION WIDTH SD 57.8 fL (36.4-46.3); WHITE BLOOD COUNT 9.12 K/uL (4.8-10.8)
[2018-01-05] MEDS ORDERED: CEFEPIME IV 2,000 MG in DEXTROSE 5% 100ML 100 ML IV STA (16:58)
--- NOTE | 2018-01-05 17:32 | DIAGNOSTIC IMAGING REPORT ---
ABD/PELVIS NO IV OR ORAL CONT CT DOSE: 280.73 mGy.cm HISTORY: eval for pancreatitis, Liver dx, gb disease TECHNIQUE: Multiaxial CT images of the abdomen and pelvis were performed without contrast. A dose lowering technique was utilized adhering to the principles of ALARA. COMPARISON STUDY: None. FINDINGS: Emphysematous change of both lung bases. Basilar chronic parenchymal fibrotic change. Trace amount of perihepatic ascites. Trace. Splenic ascites. Gallstones within a somewhat contracted gallbladder. Mild ascitic fluid throughout the abdomen and pelvis. Considerable prostatic enlargement. Bladder is midline. Kidneys negative for hydronephrosis. 2 mm nonobstructing upper pole left renal calcification. Pancreas appears to be generally intact. Potential mild hepatic cirrhotic change. IMPRESSION: 1. Emphysematous change at both lung bases. 2. Mild hepatic cirrhotic change. 3. Mild scattered ascites within the abdomen and pelvis. 4. Nonobstructive bowel pattern. 5. Prostatic enlargement. 6. Contracted gallbladder contains several gallstones. The above report was generated using voice recognition software. It may contain grammatical, syntax or spelling errors. Electronically signed by: Pepe Bardales M.D. 01/05/2018 5:30 PM Dictated Date/Time: 01/05/2018 5:27 PM
[2018-01-05] MEDS ORDERED: ALBUTEROL HFA 8 GM INHALER INH PRN (18:00)
[2018-01-05] MEDS ORDERED: ONDANSETRON INJ 2 MG/ML 2 ML VIAL IV PRN (18:00)
[2018-01-05] MEDS ORDERED: ALUMINUM/MAGNESIUM/SIMETH (MAALOX MAX) 30 ML UDC PO PRN (18:00)
[2018-01-05] MEDS ORDERED: MAGNESIUM HYDROXIDE SUSP 30 ML UDC PO PRN (18:00)
[2018-01-05] MEDS ORDERED: ZOLPIDEM TARTRATE 5 MG TAB PO PRN (18:00)
--- NOTE | 2018-01-05 18:29 | History and Physical ---
History & Physical Date of Service Jan 05, 2018. History & Physical diarrhea, pancreatitis, acute renal failure, sepsis, abn LFT, hx of [facility] [id number]
[2018-01-05] MEDS ORDERED: VANCOMYCIN CONSULT ACTIVE PRN (18:39)
[2018-01-05] MEDS ORDERED: VANCOMYCIN IV 1,000 MG in SODIUM CHLORIDE 0.9% 250ML 250 ML IV SCH (19:00)
[2018-01-05] MEDS ORDERED: PANTOprazole INJ 40 MG in SYRINGE 0 ML IV ONE (19:00)
[2018-01-05] MEDS ORDERED: GLUCAGON FOR INJ 1 MG VIAL IM PRN (19:30)
[2018-01-05] MEDS ORDERED: GLUCOSE 40% GEL 15 GM TUBE PO PRN (19:30)
[2018-01-05] MEDS ORDERED: DEXTROSE 50% 50 ML SYR IV PRN (19:30)
[2018-01-05] MEDS ORDERED: GLUCOSE 10 TABS/TUBE PO PRN (19:30)
[2018-01-05] MEDS ORDERED: CARBOHYDRATES FOR HYPOGLYCEMIA PO PRN (19:30)
--- NOTE | 2018-01-05 19:38 | DIAGNOSTIC IMAGING REPORT ---
(RHONA/BLAD)RETROPERITON COMP HISTORY: Renal insufficiency Acute Renal Failure COMPARISON: CT same date FINDINGS: Right kidney: Slight fullness right renal collecting system. Normal corticomedullary differentiation and cortical thickness. Left kidney: Mild fullness renal collecting system. Normal corticomedullary differentiation and cortical thickness. Bladder: No bladder wall thickening. The bilateral ureteral jets were identified. Trace scattered abdominal and pelvic ascites. Prostate enlargement. IMPRESSION: 1. Slight fullness of the renal collecting systems bilaterally. 2. Minimal scattered ascites. 3. Prostate enlargement. The above report was generated using voice recognition software. It may contain grammatical, syntax or spelling errors. Electronically signed by: Pepe Bardales M.D. 01/05/2018 7:36 PM Dictated Date/Time: 01/05/2018 7:34 PM
[2018-01-05 20:05] VITALS: BP 116/82; PULSE 130; TEMP 36.9; O2SAT 100; Ht 162.6 cm; Wt 58.0 kg
--- NOTE | 2018-01-05 20:10 | HISTORY & PHYSICAL EXAMINATION ---
DATE OF ADMISSION: 01/05/2018 This is a level 3 inpatient admission, 45 minutes. CHIEF COMPLAINT: Generalized weakness, abdominal pain, hiccup, diarrhea, HISTORY OF PRESENT ILLNESS: The patient is a 72-year-old white male with a significant past medical history of AML bone marrow transplantation, hypothyroidism, aortic valve replacement, history of stem cell transplantation came into the hospital Emergency Department because of the above chief complaint. The patient report has identified as AML acute myeloid leukemia in 09/2016. Had a bone marrow stem cell transplantation in [facility], after that, he has been doing quite well, and had recent traveling to [place] about 2 weeks ago on vacation. He was started on new chemotherapeutic medication, the name is Lydia. From then on, he reported he has some stomach upset and back pain. Has been feeling generalized weakness and could not walk. He developed cold sore in the upper, lower middle of the lip 2 or 3 days ago. He only is using [id number] medicine for the cold sore. Did not report to his provider. He stopped taking this medication Lydia on past Monday, which was 4 days ago. He was seen in [facility] on Monday, which was 3 days ago and follow up in a.m. with blood work, was told "looks good". Patient has generalized weakness and he has some hiccup from yesterday and started to have diarrhea from yesterday and today as well. He has significant diarrhea 5 times a day so far. Denied cramping abdominal pain, the patient has significant hiccup, denied fever or chills, denied cough, sputum, shortness of breath, denied constipation, denied jaundice, denied dysuria, urgency, and frequencies. Denied back pain. Denies skin rashes, but recent UTI treatment was 2 weeks ago. PAST MEDICAL HISTORY: Like I mentioned in the above which include hypothyroidism, acute myeloid leukemia S/P bone marrow stem cell transplantation, history of aortic valve replacement. FAMILY HISTORY: Not significant. SOCIAL HISTORY: Denied tobacco abuse disorder, denied alcohol abuse disorder, denied illicit drug abuse. The patient lives with family, MEDICATIONS: Taking at home include Diflucan 200 mg p.o. daily, insulin Glargine 10 units subQ q.p.m., lispro subQ t.i.d., levothyroxine 125 mcg p.o. daily, metoprolol 12.5 mg p.o. b.i.d., prednisone 12.5 mg p.o. b.i.d. and 20 mg p.o. daily, probiotic 1 tab p.o. daily, sucralfate 10 mg p.o. a.c. and at bedtime, Bactrim double strength 1 tab p.o. Monday, Monday and Monday. As needed medications include Ventolin inhale 2 puff q. 6 hours p.r.n. for shortness of breath, Pepcid 20 mg p.o. p.r.n. for indigestion. REVIEW OF SYSTEMS: Please see HPI. PHYSICAL EXAMINATION: VITAL SIGNS: Temperature 36.9, pulse initially was 153, respiratory rate 18, blood pressure 85/67, pulse ox was 91% in room air. GENERAL: The patient is a white male, look frail, tired, awake, alert and orientated, conversational, follows all commands. HEAD: Normocephalic. EYES: Pupils equal, round, responds to the light. No conjunctival injection. No scleral icterus. EARS: Ear was normal. NOSE: Normal. MOUTH: Middle, upper, and lower lip has healing vesicles. Oral cavity evaluation, there was no odor, thrushes, or blisters. CARDIAC: Regular rhythm, tachycardia, heart rate at 120. No murmur, no gallop, no rubs. LUNGS: Decreased breathing sounds. There was no wheezing, rhonchi or crackles. ABDOMEN: Soft, nontender. Bowel sound was positive. GENITOURINARY AND RECTAL: Deferred. Bilateral CVA was nontender. BILATERAL LOWER EXTREMITIES: No swelling. Homans sign was negative. Calf was nontender. SKIN: Warm. No obvious skin rashes. NEUROLOGICAL EVALUATION: Cranial nerves II-XII was intact. There was no local deficits. LABORATORY STUDIES: WBC 9.1, hemoglobin 9.9, platelet 19, sodium 132, potassium 3.2, BUN 57, creatinine 1.6. Calcium 7.3. AST 825, ALT 916, alkaline phosphatase 361. Troponin 0.27. Total protein 5.3, albumin 2.3, lipase 3051. TSH was 17. Lactase was 2.47. Blood culture is pending. Chest x-ray studies, no airspace consolidation or pneumonia, no pleural effusion. STUDIES: Abdominal CT studies mild hepatic cirrhoric changes. Nonobstructive bowel pattern. Contracted gallbladder containing several gallstones. detail see report. EKG studies is sinus tachycardic. No ST-T phase changes. ASSESSMENT AND PLAN: A 72-year-old white male with the conditions seen below: 1. Severe diarrhea. 2. Hiccup. 3. Dehydration, likely because of diarrhea. 4. Acute kidney failure likely because of dehydration. 5. Tachycardia and borderline low blood pressure. 6. Possible sepsis with elevated lactase. 7. Thrombocytopenia. Platelet 819. 8. Possible acute liver failure. 9. Possible pancreatitis. 10. Oral herpes. 11. History of acute myeloid leukemia, status post stem cell transplantation. 12. Hypokalemia. 13. Anemia. 14. Thrombocytopenia. 15. Hypothyroidism. 16. Gallbladder stone. PLAN: The patient has a significant medical condition of acute myeloid leukemia status post transplantation. All of his diarrhea and generalized weakness are after starting the chemo medication, the name is Lydia, he has a complication of diarrhea, hiccup, liver failure, pancreatitis, dehydration, acute renal failure, currently is hemodynamically stable, evaluation for the sepsis and treat for sepsis, possible for now, will continue IV fluid, check lactase, monitor blood pressure, low threshold to transfer to ICU, no threshold to transfer to tertiary medical center, we will check stool culture, C. diff, will follow up liver function test. Avoid liver offensive medication and renal offensive medication. Follow up UA, keep him n.p.o., hold Glargine at home, will give sliding scale, we will start IV levothyroxine because the patient will be n.p.o., will continue home medication of Diflucan for prophylaxis use and he was on Bactrim at home Monday, Monday and Monday, will be on hold because of acute renal and liver failure now. We will have infectious disease, GI, oncologist, consultation and have more input, GI prophylaxis is covered with Protonix. Deep venous thrombosis prophylaxis is contraindicated, discussed with patient's and son at bedside. Has consented of the platelet or blood transfusion if needed, patient wants to be full code. [facility]
[2018-01-05] MEDS: NSS + 20MEQ KCL 1000ML 1,000 ML IV SCH (21:00)
[2018-01-05] MEDS ORDERED: CEFEPIME CONSULT ACTIVE PRN (21:00)
[2018-01-05] MEDS: INSULIN ASPART 100 UNITS/ML 3 ML PEN SC SCH (21:00)
[2018-01-05] MEDS: HYDROCORTISONE IV 100 MG in SYRINGE 0 ML IV SCH (21:49)
[2018-01-05] MEDS: SUCRALFATE 1 GM/10 ML UDC PO SCH (21:49)
[2018-01-05] MEDS: METOPROLOL TARTRATE 25 MG TAB PO SCH (21:50)
[2018-01-05] MEDS ORDERED: CEFEPIME IV 1,000 MG in DEXTROSE 5% 100ML 100 ML IV SCH (22:00)
[2018-01-05] MEDS: ACYCLOVIR SUSP 200 MG/5 ML UDP PO SCH (23:01)
[2018-01-05 23:41] LABS: CKMB 1.7 ng/ml (0.5-3.6)
[2018-01-05 23:43] VITALS: BP 97/69; PULSE 100; PULSE 74; TEMP 37.5; O2SAT 96
[2018-01-06] VITALS (7 sets, daily range): BP systolic 107–135; BP diastolic 68–85; PULSE 79–94; TEMP 36.5–37; O2SAT 95–100
[2018-01-06] MEDS: HYDROCORTISONE IV 100 MG in SYRINGE 0 ML IV SCH ×2 (04:19→12:08)
[2018-01-06] MEDS: NSS + 20MEQ KCL 1000ML 1,000 ML IV SCH ×3 (04:19→12:09)
[2018-01-06] MEDS ORDERED: CEFEPIME IV 1,000 MG in SYRINGE 0 ML IV SCH (06:00)
[2018-01-06] MEDS: INSULIN ASPART 100 UNITS/ML 3 ML PEN SC SCH ×2 (07:00→11:00)
--- NOTE | 2018-01-06 07:00 | Pharmacy Progress Note ---
Pharmacy Abx Initial Consult Date of Service Jan 06, 2018. Pharmacy Dosing Scope Date of Consult: 01/05/18 Consultation requested by: Dr. Turcios Pharmacy is consulted to initiate Vancomycin & Cefepime IV dosing therapy, order appropriate labs and adjust drug dose/frequency. Subjective The patient is a 72 year old male admitted on Jan 05, 2018 at 18:12 with possible sepsis. He has history of a bone marrow transplant He was taking Bactrim at home & was recently started on a new chemo agent. He presents with weakness and diarrhea. Dr. Turcios choses to consult pharmacy for broad spectrum antibiotic coverage empirically for sepsis. He continued his Acyclovir and Diflucan from home as well. Objective Height (Feet): 5 Height (Inches): 4.00 Weight (Kilograms): 58.000 Vital Signs (Past 12Hrs) Vital Signs Past 12 Hours Date Time Temp Pulse Resp B/P (MAP) Pulse Ox O2 Delivery O2 Flow Rate FiO2 01/06/18 04:00 37.0 90 16 107/68 (81) 96 Room Air 01/05/18 23:59 Room Air 01/05/18 23:43 37.5 100 18 97/69 (78) 96 Room Air 01/05/18 20:05 36.9 130 20 116/82 100 Room Air Lab Results (24Hrs) Laboratory Tests (24 Hours) Test 01/05/18 22:57 01/06/18 04:44 Lactic Acid Level 1.1 mmol/L (0.4-2.0) Micro Results Date/Time Source Procedure Growth Status 01/05/18 16:45 Blood Blood Culture Pending Received 01/05/18 15:50 Blood Blood Culture Pending Received 01/05/18 22:30 Urine , Clean Catch Urine Culture Pending Received Risk Factors for Resistance * Immunocompromised (chronic steroid therapy, chemotherapy, immunomodulators) * Antimicrobial use within the last 90 days: Bactrim, Diflucan and Acyclovir Assessment & Plan Assessment 72 year old male being treated empirically for Sepsis Plan Vancomycin IV * Loading dose: 1000 mg (18 mg/kg) * Maintenance dose: 750 mg IV ( 13mg/kg) every 24 hours * Goal trough level: 15-20 mcg/mL * Trough not ordered at this time based on uncertain treatment duration Pharmacy will continue to follow and will adjust dose/frequency as necessary. Thank you.
[2018-01-06 07:51] LABS: HEMATOCRIT 26.1 % (42-52); HEMOGLOBIN 8.9 g/dL (14.0-18.0); MEAN CORPUSCULAR HGB CONC 34.1 g/dl (32-36); RED CELL DISTRIBUTION WIDTH SD 59.1 fL (36.4-46.3); WHITE BLOOD COUNT 4.85 K/uL (4.8-10.8)
[2018-01-06] MEDS: ACYCLOVIR SUSP 200 MG/5 ML UDP PO SCH (07:55)
[2018-01-06] MEDS: METOPROLOL TARTRATE 25 MG TAB PO SCH (07:56)
[2018-01-06 07:58] LABS: PLATELET COUNT 15 K/uL (130-400)
[2018-01-06] MEDS: SUCRALFATE 1 GM/10 ML UDC PO SCH ×2 (08:00→11:18)
[2018-01-06 08:14] LABS: ALBUMIN 1.8 gm/dl (3.4-5.0); CALCIUM 6.5 mg/dl (8.5-10.1); CREATININE 1.42 mg/dl (0.60-1.40); POTASSIUM 3.9 mmol/L (3.5-5.1)
[2018-01-06 08:19] LABS: TOTAL PROTEIN 4.3 gm/dl (6.4-8.2)
[2018-01-06] MEDS ORDERED: FLUCONAZOLE / NSS 200 MG in PREMIXED NSS 100 ML IV SCH (09:00)
[2018-01-06] MEDS ORDERED: LEVOTHYROXINE SODIUM INJ 75 MCG in SYRINGE 0 ML IV SCH (09:00)
[2018-01-06] MEDS ORDERED: LACTOBACILLUS ACIDOPHILUS (FLORANEX) TAB PO SCH (09:00)
[2018-01-06 09:15] LABS: HEMOGLOBIN A1C 9.1 % (4.5-5.6)
[2018-01-06] MEDS ORDERED: PANTOprazole INJ 40 MG in SYRINGE 0 ML IV SCH (11:00)
[2018-01-06] MEDS ORDERED: ACYCLOVIR SOD INJ 500 MG in DEXTROSE 5% 100ML 100 ML IV SCH (11:00)
--- NOTE | 2018-01-06 11:20 | Discharge Instructions ---
Discharge Instructions Date of Service Jan 06, 2018. 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 Instructions / Follow-Up Instructions / Follow-Up you have possible GVH hx of bone marrow transplant, with anterior chest wall skin rash saw yesterday spreading down to abd today d/w'ed with oncologist, GI, will transfer you to [facility] has accepting physician to [facility] , - you need to follow up with your primary care physician in 1 week after discharged from [facility] - take medication as instructed, never overdose or any misuse, or take with alcohol, because misuse of medicine may cause organ damage or , call me , or your primary care physician if have questions of discharge medicaitons. - call your primary care physician, or go to local emergency room if has any fever/chill, chest pain, shortness of breathing, nausea/vomiting/abdominal pain , facial droop/slurry speech/local weakness, or if has any questions. - fall precaution - diet as instructed - you need to follow up with your subspecialist Current Hospital Diet Patient's current hospital diet: Discharge Diet Recommended Diet: Clear Liquid Diet Pending Studies Studies pending at discharge: no Laboratory Results Hemoglobin A1c Test 01/06/18 07:16 Range/Units Estimated Average Glucose 214 mg/dl Hemoglobin A1c 9.1 H 4.5-5.6 % Medical Emergencies . Who to Call and When: Medical Emergencies: If at any time you feel your situation is an emergency, please call 911 immediately. . Non-Emergent Contact Non-Emergency issues call your: Primary Care Provider, Oncologist . . "Provider Documentation" section prepared by Ben Turcios. .
--- NOTE | 2018-01-06 11:26 | Oncology Consultation ---
Oncology/Heme Consultation Date of Consultation: Jan 06, 2018. Attending Physician: Bne Turcios MD, PhD Reason for Consultation: AML status post allogeneic SCT Diarrhea Rash History of Present Illness Mr. Brady is a 72 year old man with a history of AML who underwent allogeneic SCT in September 2016. 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 He went on a trip to [place] a few weeks ago and while he was there, he began feeling very ill. He was fatigued, weak, and had some back pain. He also had a vesicular eruption on his lip. He spoke with his student accounts coordinator at [facility] who brought him down for some blood work. He and his read about possible side effects of sirolimus and thought his symptoms may have been related to it, so they stopped it about a week ago. In the last 2-3 days, he's developed profuse, watery diarrhea. He was admitted with possible sepsis symptoms and started on broad-spectrum antibiotics. However, cultures have been negative and he has been afebrile. Starting yesterday, he developed a rash across his chest that is now spreading down his trunk. It is red and papular, but without vesicles or crusting. He was started on stress-dose steroids as part of a sepsis protocol on admission and, since then, his diarrhea has abated. He also had a marked transaminitis and pancreatitis that is improving. Past Medical/Surgical History Medical Problems: (1) Dehydration Status: Acute (2) Elevated liver function tests Status: Acute (3) Elevated troponin Status: Acute (4) Ground glass opacity present on imaging of lung Status: Acute (5) Hypoxia Status: Acute (6) Pancreatitis Status: Acute (7) PNA (pneumonia) Status: Acute (8) Pulmonary edema Status: Acute (9) Tachycardia Status: Acute (10) Thrombocytopenia Status: Acute (11) Thrombocytopenia Status: Acute Social History Problems: (1) Status post bone marrow transplant Status: Acute Family History Patient reports no known family medical history. Social History Smoking Status: Never Smoker Drug Use: none Marital Status: Housing Status: lives with family Occupation Status: unemployed Allergies Coded Allergies: No Known Allergies (Unverified , 01/05/18) Home Medications Scheduled Fluconazole (Diflucan), 200 MG PO DAILY Insulin Glargine (Lantus), 10 UNITS SC QPM Insulin Human Lispro (Humalog), SQ TIDM Levothyroxine Sodium (Synthroid), 125 MCG PO DAILY Metoprolol Tartrate (Lopressor) (Lopressor), 12.5 MG PO BID Prednisone (Prednisone), 20 MG PO DAILY Probiotic Product (Probiotic), 1 CAP PO DAILY Sucralfate (Carafate), 10 ML PO ACHS Sulfa/Trimethoprim (Bactrim Ds 800MG/160MG), 1 TAB PO mon,mon, mon Scheduled PRN Albuterol Hfa (Ventolin Hfa), 2 PUFFS INH Q6H PRN for SOB/Wheezing Famotidine (Pepcid), 20 MG PO DAILY PRN for PRN Current Inpatient Medications Current Inpatient Medications Medications (Trade) Dose Ordered Sig/Keeley Route Start Time Stop Time Status Last Admin Dose Admin Potassium Chloride/Sodium Chloride 1,000 ml @ 200 mls/hr Q5H IV 01/05/18 21:00 02/04/18 20:59 01/06/18 08:55 200 MLS/HR Al Hydrox/Mg Hydrox/Simethicone (Maalox Max Susp) 15 ml Q4H PRN PO 01/05/18 18:00 02/04/18 17:59 Magnesium Hydroxide (Milk Of Magnesia Susp) 30 ml Q12H PRN PO 01/05/18 18:00 02/04/18 17:59 Zolpidem Tartrate (Ambien Tab) 5 mg HSZ PRN PO 01/05/18 18:00 02/04/18 17:59 Ondansetron HCl (Zofran Inj) 4 mg Q6H PRN IV 01/05/18 18:00 02/04/18 17:59 Albuterol (Ventolin Hfa Inhaler) 2 puffs Q6H PRN INH 01/05/18 18:00 02/04/18 17:59 Metoprolol Tartrate (Lopressor Tab) 12.5 mg BID PO 01/05/18 21:00 02/04/18 20:59 01/06/18 07:56 12.5 MG Sucralfate (Carafate Susp) 1 gm ACHS PO 01/05/18 21:00 02/04/18 20:59 01/06/18 08:00 1 GM Lactobacillus Acidophilus (Floranex Tab) 4 tab DAILY PO 01/06/18 09:00 02/05/18 08:59 01/06/18 07:57 4 TAB Fluconazole/ Sodium Chloride 200 mg/Prmx 100 ml @ 100 mls/hr DAILY@0900 IV 01/06/18 09:00 02/05/18 08:59 01/06/18 08:54 100 MLS/HR Pantoprazole Sodium 40 mg/ Syringe 10 ml @ 5 mls/min DAILY@11 IV 01/06/18 11:00 02/05/18 10:59 Vancomycin HCl (Consult) 1 ea UD PRN N/A 01/05/18 18:39 02/04/18 18:38 Levothyroxine Sodium 75 mcg/ Syringe 3.75 ml @ 2 mls/min DAILY@09 IV 01/06/18 09:00 02/05/18 08:59 01/06/18 08:54 2 MLS/MIN Insulin Aspart (novoLOG ASPART) SLIDING SCALE G... ACHS SC 01/05/18 21:00 02/04/18 20:59 Hydrocortisone Sodium Succinate 100 mg/Syringe 2 ml @ 4 mls/min Q8@0400,1200,2000 IV 01/05/18 21:00 02/04/18 20:59 01/06/18 04:19 4 MLS/MIN Glucose (Glucose 40% Gel) 15-30 GRAMS 15 GRAMS... UD PRN PO 01/05/18 19:30 02/04/18 19:29 Glucose (Glucose Chew Tab) 4-8 Tablets 4 Tabl... UD PRN PO 01/05/18 19:30 02/04/18 19:29 Dextrose (Dextrose 50% 50ML Syringe) 25-50ML 25ML FOR ... UD PRN IV 01/05/18 19:30 02/04/18 19:29 01/05/18 21:00 25 ML Glucagon (Glucagon Inj) 1 mg UD PRN IM 01/05/18 19:30 02/04/18 19:29 Carbohydrates (Carbohydrates For Hypoglycemia) 15-30 GRAMS 15 grams if BSG 54-69... UD PRN PO 01/05/18 19:30 02/04/18 19:29 Cefepime HCl 1000 mg/Syringe 11 ml @ 5.5 mls/min Q12H IV 01/06/18 06:00 01/20/18 05:59 01/06/18 05:41 5.5 MLS/MIN Cefepime HCl (Consult) 1 ea UD PRN N/A 01/05/18 21:00 02/04/18 20:59 Heparin Sodium (Porcine) (Heparin 100 Unit/ml 5ml Flush) 5 ml PRN PRN IV 01/06/18 00:45 02/05/18 00:44 Vancomycin HCl 750 mg/Sodium Chloride 265 ml @ 125 mls/hr Q24H IV 01/06/18 18:00 01/08/18 17:59 Acyclovir Sodium 500 mg/Dextrose 110 ml @ 110 mls/hr Q12H IV 01/06/18 11:00 01/16/18 10:59 Review of Systems Constitutional: + weakness, + fatigue, No fever Respiratory: No cough, No shortness of breath Cardiovascular: No chest pain Abdomen: + diarrhea (improved), No pain, No nausea Musculoskeletal: No joint pain, No muscle pain Hematologic / Lymphatic: No abnormal bleeding/bruising Integumentary: + rash Physical Exam Date Time Temp Pulse Resp B/P (MAP) Pulse Ox O2 Delivery O2 Flow Rate FiO2 01/06/18 08:00 97 Room Air 01/06/18 07:15 36.8 94 18 122/85 (97) 97 Room Air 01/06/18 04:00 37.0 90 16 107/68 (81) 96 Room Air 01/05/18 23:59 Room Air 01/05/18 23:43 37.5 100 18 97/69 (78) 96 Room Air 01/05/18 20:05 36.9 130 20 116/82 100 Room Air 01/05/18 18:30 127 20 140/97 97 Room Air 01/05/18 17:31 129 20 124/97 01/05/18 17:01 117 18 116/88 01/05/18 16:32 130 20 110/85 01/05/18 16:19 127 01/05/18 16:01 127 25 130/101 01/05/18 15:54 128 20 134/107 01/05/18 15:16 36.9 153 18 85/67 91 Room Air General Appearance: no apparent distress ENT: pharynx normal, + pertinent finding (crusting lip lesion from previous herpetic infection) Respiratory/Chest: lungs clear Cardiovascular: regular rate, rhythm Abdomen/GI: non tender, soft Extremities/Musculoskelatal: no pedal edema Neurologic/Psych: alert, oriented x 3 Skin: + rash (raised, papular rash across his chest and trunk, spreading toward his waist. No vesicles or crusting) Laboratory Results Last 24 Hours Test 01/05/18 15:50 01/05/18 16:02 01/05/18 16:04 01/05/18 20:54 White Blood Count 9.12 K/uL Red Blood Count 3.43 M/uL Hemoglobin 9.9 g/dL Hematocrit 29.1 % Mean Corpuscular Volume 84.8 fL Mean Corpuscular Hemoglobin 28.9 pg Mean Corpuscular Hemoglobin Concent 34.0 g/dl Platelet Count 19 K/uL RDW Standard Deviation 57.8 fL RDW Coefficient of Variation 18.6 % Neutrophils % (Manual) 59.2 % Lymphocytes % (Manual) 37.2 % Monocytes % (Manual) 2.7 % Myelocytes % 0.9 % Neutrophils # (Manual) 5.40 K/uL Total Absolute Neutrophils 5.40 K/uL Lymphocytes # (Manual) 3.39 K/uL Total Absolute Lymphocytes 3.39 K/uL Monocytes # (Manual) 0.25 K/uL Myelocytes # 0.08 K/uL Smudge Cells PRESENT Spherocytes 1+ Sodium Level 132 mmol/L Potassium Level 3.2 mmol/L Chloride Level 100 mmol/L Carbon Dioxide Level 21 mmol/L Anion Gap 11.0 mmol/L Blood Urea Nitrogen 57 mg/dl Creatinine 1.66 mg/dl Est Creatinine Clear Calc Drug Dose 32.5 ml/min Estimated GFR () 47.7 Estimated GFR (Non- 41.1 BUN/Creatinine Ratio 34.1 Random Glucose 72 mg/dl Calcium Level 7.3 mg/dl Phosphorus Level 3.0 mg/dl Magnesium Level 2.1 mg/dl Total Bilirubin 0.5 mg/dl Direct Bilirubin 0.3 mg/dl Aspartate Amino Transf (AST/SGOT) 825 U/L Alanine Aminotransferase (ALT/SGPT) 916 U/L Alkaline Phosphatase 361 U/L Total Protein 5.3 gm/dl Albumin 2.3 gm/dl Lipase 3051 U/L Thyroid Stimulating Hormone (TSH) 17.600 uIu/ml Free Thyroxine 0.73 ng/dl Bedside Troponin I 0.270 ng/ml Bedside Lactic Acid Venous 2.46 mmol/L Bedside Glucose 42 mg/dl Test 01/05/18 20:57 01/05/18 20:59 01/05/18 21:15 01/05/18 22:30 Bedside Glucose 85 mg/dl 62 mg/dl 97 mg/dl Urine Color YELLOW Urine Appearance CLOUDY Urine pH 5.[address] [place] 1.022 Urine Protein 2+ Urine Glucose (UA) TRACE Urine Ketones NEG Urine Occult Blood 2+ Urine Nitrite NEG Urine Bilirubin NEG Urine Urobilinogen NEG Urine Leukocyte Esterase NEG Urine WBC (Auto) 1-5 /hpf Urine RBC (Auto) 5-10 /hpf Urine Hyaline Casts (Auto) 1-5 /lpf Urine Epithelial Cells (Auto) 10-20 /lpf Urine Bacteria (Auto) NEG Urine Yeast (Auto) Test 01/05/18 22:57 01/05/18 23:00 01/06/18 07:16 01/06/18 07:24 Lactic Acid Level 1.1 mmol/L Creatine Kinase MB 1.7 ng/ml Creatine Kinase MB Ratio Troponin I 0.324 ng/ml 0.233 ng/ml White Blood Count 4.85 K/uL Red Blood Count 3.07 M/uL Hemoglobin 8.9 g/dL Hematocrit 26.1 % Mean Corpuscular Volume 85.0 fL Mean Corpuscular Hemoglobin 29.0 pg Mean Corpuscular Hemoglobin Concent 34.1 g/dl Platelet Count 15 K/uL RDW Standard Deviation 59.1 fL RDW Coefficient of Variation 19.0 % Neutrophils % (Manual) 62.7 % Lymphocytes % (Manual) 33.0 % Monocytes % (Manual) 1.7 % Metamyelocytes % 1.7 % Myelocytes % 0.9 % Neutrophils # (Manual) 3.04 K/uL Total Absolute Neutrophils 3.04 K/uL Lymphocytes # (Manual) 1.60 K/uL Total Absolute Lymphocytes 1.60 K/uL Monocytes # (Manual) 0.08 K/uL Metamyelocytes # 0.08 K/uL Myelocytes # 0.04 K/uL Hyposegmented Neutrophils 1+ Ovalocytes 1+ Sodium Level 136 mmol/L Potassium Level 3.9 mmol/L Chloride Level 107 mmol/L Carbon Dioxide Level 18 mmol/L Anion Gap 10.0 mmol/L Blood Urea Nitrogen 49 mg/dl Creatinine 1.42 mg/dl Est Creatinine Clear Calc Drug Dose 39.7 ml/min Estimated GFR () 57.6 Estimated GFR (Non- 49.7 BUN/Creatinine Ratio 34.8 Random Glucose 167 mg/dl Estimated Average Glucose 214 mg/dl Hemoglobin A1c 9.1 % Calcium Level 6.5 mg/dl Total Bilirubin 0.6 mg/dl Direct Bilirubin 0.4 mg/dl Aspartate Amino Transf (AST/SGOT) 604 U/L Alanine Aminotransferase (ALT/SGPT) 665 U/L Alkaline Phosphatase 246 U/L Total Protein 4.3 gm/dl Albumin 1.8 gm/dl Lipase 1587 U/L Bedside Glucose 172 mg/dl Assessment & Plan Mr. Brady has been off of his immune suppression for about a week and I suspect his symptoms are related to GVH. This is supported by the fact that his diarrhea improved after he was given stress-dose steroids last night. His LFTs are improving, which is encouraging. However, the rash continues to worsen and he may need more aggressive therapy for his GVH. His longer-term symptoms are a bit unclear with regard to etiology, but I think we need to address the GVH issue first. I spoke with an attending, Dr. 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 I would hold his antibiotics, as he does not appear to be infected and there is a possibility the rash is a drug eruption. I would continue his other prophylactic anti-infectives, like fluconazole and bactrim DS 3 times per week, though he won't be due for a dose until after he's left. He was not receiving Acyclovir as an outpatient, but I would continue that for now given his eruption on his lips.
--- NOTE | 2018-01-06 11:39 | Progress Note ---
Subjective Date of Service: Jan 06, 2018. Subjective Pt evaluation today including: conversation w/ patient, conversation w/ family , physical exam, chart review, lab review, review of studies, conversation w/ marketing regional consultant, review of inpatient medication list skin rash in anterial front chest wall, spreading to abd, no more diarrhea, no f /c, Problem List Medical Problems: (1) Dehydration Status: Acute (2) Elevated liver function tests Status: Acute (3) Elevated troponin Status: Acute (4) Ground glass opacity present on imaging of lung Status: Acute (5) Hypoxia Status: Acute (6) Pancreatitis Status: Acute (7) PNA (pneumonia) Status: Acute (8) Pulmonary edema Status: Acute (9) Tachycardia Status: Acute (10) Thrombocytopenia Status: Acute (11) Thrombocytopenia Status: Acute Social History Problems: (1) Status post bone marrow transplant Status: Acute Review of Systems Constitutional: + weakness, + fatigue, No fever, No chills, No sweats, No weight loss, No problem reported Eyes: No worsening of vision, No eye pain, No redness, No discharge, No diplopia ENT: + problem reported (lips blister/scar), No hearing loss, No unusual epistaxis, No nasal symptoms, No sore throat, No tinnitus, No dental problems, No trouble swallowing Respiratory: No cough, No sputum, No wheezing, No shortness of breath, No dyspnea on exertion, No dyspnea at rest, No hemoptysis Cardiac: No chest pain, No orthopnea, No PND, No edema, No claudication, No palpitations Abdomen: No pain, No nausea, No vomiting, No diarrhea, No constipation Musculoskeletal: No joint pain, No muscle pain, No swelling, No calf pain Male : No dysuria, No urinary frequency, No incontinence, No nocturia more than once/night, No slowing stream, No hematuria Neurologic: No memory loss, No paralysis, No weakness, No numbness/tingling, No vertigo, No balance problems Psychiatric: No depression symptoms, No anhedonism, No anxiety, No insomnia, No substance abuse Heme: No abnormal bleeding/bruising, No clotting problems, No swollen lymph nodes, No night sweats Endo: + fatigue, No excessive thirst, No excessive urination Skin: + rash, No itch, No new/changing skin lesions, No color change, No bleeding Objective Vital Signs Date Time Temp Pulse Resp B/P (MAP) Pulse Ox O2 Delivery O2 Flow Rate FiO2 01/06/18 08:00 97 Room Air 01/06/18 07:15 36.8 94 18 122/85 (97) 97 Room Air 01/06/18 04:00 37.0 90 16 107/68 (81) 96 Room Air 01/05/18 23:59 Room Air 01/05/18 23:43 37.5 100 18 97/69 (78) 96 Room Air 01/05/18 20:05 36.9 130 20 116/82 100 Room Air 01/05/18 18:30 127 20 140/97 97 Room Air 01/05/18 17:31 129 20 124/97 01/05/18 17:01 117 18 116/88 01/05/18 16:32 130 20 110/85 01/05/18 16:19 127 01/05/18 16:01 127 25 130/101 01/05/18 15:54 128 20 134/107 01/05/18 15:16 36.9 153 18 85/67 91 Room Air Physical Exam General Appearance: WD/WN, no apparent distress Eyes: normal inspection, PERRL, EOMI, sclerae normal ENT: normal ENT inspection, hearing grossly normal, pharynx normal, + pertinent finding Neck: supple, no adenopathy, thyroid normal, no JVD, no carotid bruits, trachea midline Respiratory/Chest: chest non-tender, lungs clear, normal breath sounds, no respiratory distress, no accessory muscle use Cardiovascular: regular rate, rhythm, no edema, no gallop, no JVD, no murmur Abdomen: normal bowel sounds, non tender, soft, no organomegaly, no pulsatile mass Extremities: normal range of motion, non-tender, normal inspection, no pedal edema, no calf tenderness, normal capillary refill, pelvis stable Neurologic/Psychiatric: disk operator II-XII nml as tested, no motor/sensory deficits, alert, normal mood/affect, oriented x 3, + abnormal cerebellar tests Skin: normal color, warm/dry, no rash, + rash (anterior chest wall skin rash saw yesterday spreading down to abd today ) Lymphatic: no adenopathy Laboratory Results Last 24 Hours Test 01/05/18 15:50 01/05/18 16:02 01/05/18 16:04 01/05/18 20:54 White Blood Count 9.12 K/uL Red Blood Count 3.43 M/uL Hemoglobin 9.9 g/dL Hematocrit 29.1 % Mean Corpuscular Volume 84.8 fL Mean Corpuscular Hemoglobin 28.9 pg Mean Corpuscular Hemoglobin Concent 34.0 g/dl Platelet Count 19 K/uL RDW Standard Deviation 57.8 fL RDW Coefficient of Variation 18.6 % Neutrophils % (Manual) 59.2 % Lymphocytes % (Manual) 37.2 % Monocytes % (Manual) 2.7 % Myelocytes % 0.9 % Neutrophils # (Manual) 5.40 K/uL Total Absolute Neutrophils 5.40 K/uL Lymphocytes # (Manual) 3.39 K/uL Total Absolute Lymphocytes 3.39 K/uL Monocytes # (Manual) 0.25 K/uL Myelocytes # 0.08 K/uL Smudge Cells PRESENT Spherocytes 1+ Sodium Level 132 mmol/L Potassium Level 3.2 mmol/L Chloride Level 100 mmol/L Carbon Dioxide Level 21 mmol/L Anion Gap 11.0 mmol/L Blood Urea Nitrogen 57 mg/dl Creatinine 1.66 mg/dl Est Creatinine Clear Calc Drug Dose 32.5 ml/min Estimated GFR () 47.7 Estimated GFR (Non- 41.1 BUN/Creatinine Ratio 34.1 Random Glucose 72 mg/dl Calcium Level 7.3 mg/dl Phosphorus Level 3.0 mg/dl Magnesium Level 2.1 mg/dl Total Bilirubin 0.5 mg/dl Direct Bilirubin 0.3 mg/dl Aspartate Amino Transf (AST/SGOT) 825 U/L Alanine Aminotransferase (ALT/SGPT) 916 U/L Alkaline Phosphatase 361 U/L Total Protein 5.3 gm/dl Albumin 2.3 gm/dl Lipase 3051 U/L Thyroid Stimulating Hormone (TSH) 17.600 uIu/ml Free Thyroxine 0.73 ng/dl Bedside Troponin I 0.270 ng/ml Bedside Lactic Acid Venous 2.46 mmol/L Bedside Glucose 42 mg/dl Test 01/05/18 20:57 01/05/18 20:59 01/05/18 21:15 01/05/18 22:30 Bedside Glucose 85 mg/dl 62 mg/dl 97 mg/dl Urine Color YELLOW Urine Appearance CLOUDY Urine pH 5.0 Urine Specific [place] 1.022 Urine Protein 2+ Urine Glucose (UA) TRACE Urine Ketones NEG Urine Occult Blood 2+ Urine Nitrite NEG Urine Bilirubin NEG Urine Urobilinogen NEG Urine Leukocyte Esterase NEG Urine WBC (Auto) 1-5 /hpf Urine RBC (Auto) 5-10 /hpf Urine Hyaline Casts (Auto) 1-5 /lpf Urine Epithelial Cells (Auto) 10-20 /lpf Urine Bacteria (Auto) NEG Urine Yeast (Auto) Test 01/05/18 22:57 01/05/18 23:00 01/06/18 07:16 01/06/18 07:24 Lactic Acid Level 1.1 mmol/L Creatine Kinase MB 1.7 ng/ml Creatine Kinase MB Ratio Troponin I 0.324 ng/ml 0.233 ng/ml White Blood Count 4.85 K/uL Red Blood Count 3.07 M/uL Hemoglobin 8.9 g/dL Hematocrit 26.1 % Mean Corpuscular Volume 85.0 fL Mean Corpuscular Hemoglobin 29.0 pg Mean Corpuscular Hemoglobin Concent 34.1 g/dl Platelet Count 15 K/uL RDW Standard Deviation 59.1 fL RDW Coefficient of Variation 19.0 % Neutrophils % (Manual) 62.7 % Lymphocytes % (Manual) 33.0 % Monocytes % (Manual) 1.7 % Metamyelocytes % 1.7 % Myelocytes % 0.9 % Neutrophils # (Manual) 3.04 K/uL Total Absolute Neutrophils 3.04 K/uL Lymphocytes # (Manual) 1.60 K/uL Total Absolute Lymphocytes 1.60 K/uL Monocytes # (Manual) 0.08 K/uL Metamyelocytes # 0.08 K/uL Myelocytes # 0.04 K/uL Hyposegmented Neutrophils 1+ Ovalocytes 1+ Sodium Level 136 mmol/L Potassium Level 3.9 mmol/L Chloride Level 107 mmol/L Carbon Dioxide Level 18 mmol/L Anion Gap 10.0 mmol/L Blood Urea Nitrogen 49 mg/dl Creatinine 1.42 mg/dl Est Creatinine Clear Calc Drug Dose 39.7 ml/min Estimated GFR () 57.6 Estimated GFR (Non- 49.7 BUN/Creatinine Ratio 34.8 Random Glucose 167 mg/dl Estimated Average Glucose 214 mg/dl Hemoglobin A1c 9.1 % Calcium Level 6.5 mg/dl Total Bilirubin 0.6 mg/dl Direct Bilirubin 0.4 mg/dl Aspartate Amino Transf (AST/SGOT) 604 U/L Alanine Aminotransferase (ALT/SGPT) 665 U/L Alkaline Phosphatase 246 U/L Total Protein 4.3 gm/dl Albumin 1.8 gm/dl Lipase 1587 U/L Bedside Glucose 172 mg/dl Test 01/06/18 11:04 Bedside Glucose 195 mg/dl Assessment and Plan 72-year-old white male with the conditions seen below: 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 Hypokalemia. Anemia. Hypothyroidism with TSH 17, tx with iv levothyroxin Gallbladder stone. 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 Deep venous thrombosis prophylaxis is contraindicated, dis full code. Continued [facility] stay due to: multiple IV medications needed Discharge planning: home
--- NOTE | 2018-01-06 11:53 | Nephrology Consultation ---
Nephrology Consultation Date & Providers Date of Consultation: Jan 06, 2018. Primary Care Provider: Dioni Pizarro M.D. Referring Provider: Reason for Consultation FISH History of Present Illness Mr. Brady is a 72 year old white male who is seen at the request of Dr. Turcios for evaluation of FISH. He was evaluated during rounds at 8am this morning. Medical records in the hospital EMR were reviewed today and are summarized as follows: Mr. Brady has AML and underwent ABMT 09/19 at [facility]. He also has an AVR. Patient has been off immunosupressive therapy for approximately one week. He was admitted to [facility] w/ diarrhea, dehydration, weakness and nonoliguric FISH. Creatinine was 1.6 at the time of presentation and laboratory results show evidence of pancreatitis. Past Medical/Surgical History Medical: # AML s/p ABMT [facility] 09/19 # AVR Allergies Coded Allergies: No Known Allergies (Unverified , 01/05/18) Inpatient Medications Current Inpatient Medications Medications (Trade) Dose Ordered Sig/Keeley Route Start Time Stop Time Status Last Admin Dose Admin Potassium Chloride/Sodium Chloride 1,000 ml @ 200 mls/hr Q5H IV 01/05/18 21:00 02/04/18 20:59 01/06/18 08:55 200 MLS/HR Al Hydrox/Mg Hydrox/Simethicone (Maalox Max Susp) 15 ml Q4H PRN PO 01/05/18 18:00 02/04/18 17:59 Magnesium Hydroxide (Milk Of Magnesia Susp) 30 ml Q12H PRN PO 01/05/18 18:00 02/04/18 17:59 Zolpidem Tartrate (Ambien Tab) 5 mg HSZ PRN PO 01/05/18 18:00 02/04/18 17:59 Ondansetron HCl (Zofran Inj) 4 mg Q6H PRN IV 01/05/18 18:00 02/04/18 17:59 Albuterol (Ventolin Hfa Inhaler) 2 puffs Q6H PRN INH 01/05/18 18:00 02/04/18 17:59 Metoprolol Tartrate (Lopressor Tab) 12.5 mg BID PO 01/05/18 21:00 02/04/18 20:59 01/06/18 07:56 12.5 MG Sucralfate (Carafate Susp) 1 gm ACHS PO 01/05/18 21:00 02/04/18 20:59 01/06/18 11:18 1 GM Lactobacillus Acidophilus (Floranex Tab) 4 tab DAILY PO 01/06/18 09:00 02/05/18 08:59 01/06/18 07:57 4 TAB Fluconazole/ Sodium Chloride 200 mg/Prmx 100 ml @ 100 mls/hr DAILY@0900 IV 01/06/18 09:00 02/05/18 08:59 01/06/18 08:54 100 MLS/HR Pantoprazole Sodium 40 mg/ Syringe 10 ml @ 5 mls/min DAILY@11 IV 01/06/18 11:00 02/05/18 10:59 01/06/18 11:18 5 MLS/MIN Levothyroxine Sodium 75 mcg/ Syringe 3.75 ml @ 2 mls/min DAILY@09 IV 01/06/18 09:00 02/05/18 08:59 01/06/18 08:54 2 MLS/MIN Insulin Aspart (novoLOG ASPART) SLIDING SCALE G... ACHS SC 01/05/18 21:00 02/04/18 20:59 Hydrocortisone Sodium Succinate 100 mg/Syringe 2 ml @ 4 mls/min Q8@0400,1200,2000 IV 01/05/18 21:00 02/04/18 20:59 01/06/18 04:19 4 MLS/MIN Glucose (Glucose 40% Gel) 15-30 GRAMS 15 GRAMS... UD PRN PO 01/05/18 19:30 02/04/18 19:29 Glucose (Glucose Chew Tab) 4-8 Tablets 4 Tabl... UD PRN PO 01/05/18 19:30 02/04/18 19:29 Dextrose (Dextrose 50% 50ML Syringe) 25-50ML 25ML FOR ... UD PRN IV 01/05/18 19:30 02/04/18 19:29 01/05/18 21:00 25 ML Glucagon (Glucagon Inj) 1 mg UD PRN IM 01/05/18 19:30 02/04/18 19:29 Carbohydrates (Carbohydrates For Hypoglycemia) 15-30 GRAMS 15 grams if BSG 54-69... UD PRN PO 01/05/18 19:30 9/2/18 19:29 Cefepime HCl 1000 mg/Syringe 11 ml @ 5.5 mls/min Q12H IV 01/06/18 06:00 01/20/18 05:59 Future Hold 01/06/18 05:41 5.5 MLS/MIN Cefepime HCl (Consult) 1 ea UD PRN N/A 01/05/18 21:00 02/04/18 20:59 Future Hold Heparin Sodium (Porcine) (Heparin 100 Unit/ml 5ml Flush) 5 ml PRN PRN IV 01/06/18 00:45 02/05/18 00:44 Acyclovir Sodium 500 mg/Dextrose 110 ml @ 110 mls/hr Q12H IV 01/06/18 11:00 01/16/18 10:59 Family History Patient reports no known family medical history. Negative for CKD / ESRD Social History Smoking Status: Never Smoker Drug Use: none Marital Status: Occupation: unemployed . 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 Never a smoker Review of Systems Constitutional: No fever Respiratory: No cough, No shortness of breath Cardiovascular: No chest pain Abdomen: + diarrhea, No pain Integumentary: No rash A complete review of systems was performed. Pertinent positives are noted above. All other systems are negative. Physical Exam Date Time Temp Pulse Resp B/P (MAP) Pulse Ox O2 Delivery O2 Flow Rate FiO2 01/06/18 11:29 36.8 94 18 97 Room Air 01/06/18 08:00 97 Room Air 01/06/18 07:15 36.8 94 18 122/85 (97) 97 Room Air 01/06/18 04:00 37.0 90 16 107/68 (81) 96 Room Air 01/05/18 23:59 Room Air 01/05/18 23:43 37.5 100 18 97/69 (78) 96 Room Air 01/05/18 20:05 36.9 130 20 116/82 100 Room Air 01/05/18 18:30 127 20 140/97 97 Room Air 01/05/18 17:31 129 20 124/97 01/05/18 17:01 117 18 116/88 01/05/18 16:32 130 20 110/85 01/05/18 16:19 127 01/05/18 16:01 127 25 130/101 01/05/18 15:54 128 20 134/107 01/05/18 15:16 36.9 153 18 85/67 91 Room Air General Appearance: no apparent distress Head: normocephalic, atraumatic Eyes: PERRL, EOMI Neck: no adenopathy Respiratory/Chest: lungs clear Cardiovascular: + tachycardia Abdomen/GI: normal bowel sounds, soft, + tenderness Extremities/Musculoskelatal: no calf tenderness Neurologic/Psych: alert, oriented x 3 Laboratory Results Last 24 Hours Test 01/05/18 15:50 01/05/18 16:02 01/05/18 16:04 01/05/18 20:54 White Blood Count 9.12 K/uL Red Blood Count 3.43 M/uL Hemoglobin 9.9 g/dL Hematocrit 29.1 % Mean Corpuscular Volume 84.8 fL Mean Corpuscular Hemoglobin 28.9 pg Mean Corpuscular Hemoglobin Concent 34.0 g/dl Platelet Count 19 K/uL RDW Standard Deviation 57.8 fL RDW Coefficient of Variation 18.6 % Neutrophils % (Manual) 59.2 % Lymphocytes % (Manual) 37.2 % Monocytes % (Manual) 2.7 % Myelocytes % 0.9 % Neutrophils # (Manual) 5.40 K/uL Total Absolute Neutrophils 5.40 K/uL Lymphocytes # (Manual) 3.39 K/uL Total Absolute Lymphocytes 3.39 K/uL Monocytes # (Manual) 0.25 K/uL Myelocytes # 0.08 K/uL Smudge Cells PRESENT Spherocytes 1+ Sodium Level 132 mmol/L Potassium Level 3.2 mmol/L Chloride Level 100 mmol/L Carbon Dioxide Level 21 mmol/L Anion Gap 11.0 mmol/L Blood Urea Nitrogen 57 mg/dl Creatinine 1.66 mg/dl Est Creatinine Clear Calc Drug Dose 32.5 ml/min Estimated GFR () 47.7 Estimated GFR (Non- 41.1 BUN/Creatinine Ratio 34.1 Random Glucose 72 mg/dl Calcium Level 7.3 mg/dl Phosphorus Level 3.0 mg/dl Magnesium Level 2.1 mg/dl Total Bilirubin 0.5 mg/dl Direct Bilirubin 0.3 mg/dl Aspartate Amino Transf (AST/SGOT) 825 U/L Alanine Aminotransferase (ALT/SGPT) 916 U/L Alkaline Phosphatase 361 U/L Total Protein 5.3 gm/dl Albumin 2.3 gm/dl Lipase 3051 U/L Thyroid Stimulating Hormone (TSH) 17.600 uIu/ml Free Thyroxine 0.73 ng/dl Bedside Troponin I 0.270 ng/ml Bedside Lactic Acid Venous 2.46 mmol/L Bedside Glucose 42 mg/dl Test 01/05/18 20:57 01/05/18 20:59 01/05/18 21:15 01/05/18 22:30 Bedside Glucose 85 mg/dl 62 mg/dl 97 mg/dl Urine Color YELLOW Urine Appearance CLOUDY Urine pH 5.0 Urine Specific [place] 1.022 Urine Protein 2+ Urine Glucose (UA) TRACE Urine Ketones NEG Urine Occult Blood 2+ Urine Nitrite NEG Urine Bilirubin NEG Urine Urobilinogen NEG Urine Leukocyte Esterase NEG Urine WBC (Auto) 1-5 /hpf Urine RBC (Auto) 5-10 /hpf Urine Hyaline Casts (Auto) 1-5 /lpf Urine Epithelial Cells (Auto) 10-20 /lpf Urine Bacteria (Auto) NEG Urine Yeast (Auto) Test 01/05/18 22:57 01/05/18 23:00 01/06/18 07:16 01/06/18 07:24 Lactic Acid Level 1.1 mmol/L Creatine Kinase MB 1.7 ng/ml Creatine Kinase MB Ratio Troponin I 0.324 ng/ml 0.233 ng/ml White Blood Count 4.85 K/uL Red Blood Count 3.07 M/uL Hemoglobin 8.9 g/dL Hematocrit 26.1 % Mean Corpuscular Volume 85.0 fL Mean Corpuscular Hemoglobin 29.0 pg Mean Corpuscular Hemoglobin Concent 34.1 g/dl Platelet Count 15 K/uL RDW Standard Deviation 59.1 fL RDW Coefficient of Variation 19.0 % Neutrophils % (Manual) 62.7 % Lymphocytes % (Manual) 33.0 % Monocytes % (Manual) 1.7 % Metamyelocytes % 1.7 % Myelocytes % 0.9 % Neutrophils # (Manual) 3.04 K/uL Total Absolute Neutrophils 3.04 K/uL Lymphocytes # (Manual) 1.60 K/uL Total Absolute Lymphocytes 1.60 K/uL Monocytes # (Manual) 0.08 K/uL Metamyelocytes # 0.08 K/uL Myelocytes # 0.04 K/uL Hyposegmented Neutrophils 1+ Ovalocytes 1+ Sodium Level 136 mmol/L Potassium Level 3.9 mmol/L Chloride Level 107 mmol/L Carbon Dioxide Level 18 mmol/L Anion Gap 10.0 mmol/L Blood Urea Nitrogen 49 mg/dl Creatinine 1.42 mg/dl Est Creatinine Clear Calc Drug Dose 39.7 ml/min Estimated GFR () 57.6 Estimated GFR (Non- 49.7 BUN/Creatinine Ratio 34.8 Random Glucose 167 mg/dl Estimated Average Glucose 214 mg/dl Hemoglobin A1c 9.1 % Calcium Level 6.5 mg/dl Total Bilirubin 0.6 mg/dl Direct Bilirubin 0.4 mg/dl Aspartate Amino Transf (AST/SGOT) 604 U/L Alanine Aminotransferase (ALT/SGPT) 665 U/L Alkaline Phosphatase 246 U/L Total Protein 4.3 gm/dl Albumin 1.8 gm/dl Lipase 1587 U/L Bedside Glucose 172 mg/dl Test 01/06/18 11:04 Bedside Glucose 195 mg/dl Impression (1) Acute kidney injury (2) Pancreatitis (3) Dehydration (4) AML (acute myeloid leukemia) Recommendations -- Renal US reveals BPH and fullness to the bilateral collecting system but no overt hydronephrosis -- Urinalysis is negative for protein or blood -- Creatinine is trending down w/ gentle hydration -- Medication list was reviewed. No changes needed at this time -- Since my evaluation this am, patient has been evaluated by Oncology. 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 Arrangements are being made for transfer back to [facility]
--- NOTE | 2018-01-06 14:32 | GASTROINTESTINAL CONSULTATION ---
DATE OF CONSULTATION: 01/06/2018 CHIEF COMPLAINT: Elevated liver tests, pancreatitis, abdominal pain, thrombocytopenia, history of AML, recent initiation of sirolimus. HISTORY OF PRESENT ILLNESS: Mr. Brady is a 72-year-old white male with a history of AML and recently started on sirolimus by [facility] for his longstanding history of AML and therapies. Patient was traveling to [place], and while there, began to develop oral ulcers and lip ulcers that appeared to be herpetic stomatitis. A prescription for an antiviral was called in. Upon return, the patient recently was seen at [facility]. The patient developed issues of increasing weakness, hiccups, and a profuse pattern of diarrhea 1-2 days prior to admission and continued during this admission in the Emergency Room. Diarrhea is at least 4-6 times daily but reports is nonbloody. There is abdominal pain in the epigastrium. 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 PAST SURGICAL HISTORY: Patient has a history of a bioprosthetic aortic valve replacement. FAMILY HISTORY: Noncontributory. SOCIAL HISTORY: The patient denies tobacco use or alcohol use and lives with his family. He is retired. MEDICATIONS: Medications at home include Diflucan, insulin glargine, lispro, levothyroxine, metoprolol, prednisone 12.5 mg twice daily and 20 mg daily, probiotic, Carafate, Bactrim double strength 3 times weekly, and p.r.n. Ventolin. The patient uses Pepcid on a p.r.n. basis. REVIEW OF SYSTEMS: Otherwise noncontributory based on 13-point exam except for mentioned above. The patient reports no prior history of pancreatitis, known peptic ulcer disease, or disorders of the colon or small intestine. There is no personal history of colitis. At the present time, the patient's current medication list includes vancomycin IV, pantoprazole, acyclovir, lactobacillus, fluconazole, levothyroxine, cefepime, heparin, potassium chloride, metoprolol, Carafate, sliding scale insulin, patient received hydrocortisone due to his hypothyroid state with replacement, and albuterol p.r.n. ALLERGIES: He has no known drug allergies. PHYSICAL EXAMINATION: VITAL SIGNS: At the present time, blood pressure is 122/85, respirations 18, heart rate 94, he has 36.8 degrees temperature, 97% on room air. He has not been febrile during admission yesterday afternoon, although he was tachycardic at times. HEENT: Today, patient has multiple excoriations and erythematous spots on the scalp as well as crusted lesions in the perioral region and in the oral cavity. The sclerae are anicteric. The oral mucosa is otherwise parched. There is no cervical or supraclavicular adenopathy. I do not appreciate thyromegaly. The neck shows normal range of motion. Head is normocephalic and atraumatic. MUSCULOSKELETAL: The extremities show normal range of motion, without clubbing, cyanosis, or edema. CARDIOVASCULAR: The heart is normal S1 and S2, without significant murmur. RESPIRATORY: The lungs are overall clear to auscultation, without wheezes. GASTROINTESTINAL: The abdomen is soft, mildly tender in the epigastrium, without rebound or guarding. I do not appreciate hepatosplenomegaly. There are no abdominal bruits. I do not appreciate evidence of ascites or shifting dullness. There are positive bowel sounds. There is no focal tenderness. I do not appreciate hepatosplenomegaly. NEUROLOGIC: There is no focal neurologic defect. RECTAL: Deferred. IMAGING: Imaging studies show a chest x-ray that showed no airspace consolidation but trace left pleural effusion. His abdominal CT of the pelvis showed emphysematous changes in both lungs, mild hepatic cirrhotic change, nonobstructive pattern, mild scattered ascites in the abdomen and pelvis. There is prostatic enlargement. A contracted gallbladder with gallstones noted, but comment on the biliary system regarding dilation is not made. Patient also had a retroperitoneal ultrasound which again showed minimal scattered ascites, prostate enlargement, a slight fullness of the renal collecting systems bilaterally. The bladder shows no bladder wall thickening. LABORATORY STUDIES: On admission, white count 9.1, currently 4.85, hemoglobin 9.9, currently 8.9, and platelets were 19,000 on admission and currently 15,000. The white count has 62% neutrophils. Serum chemistry: On admission, patient's potassium was low at 3.2, sodium 132, BUN and creatinine are 57 and 1.6, total bilirubin 0.5, direct 0.3, AST 825, ALT 916, alkaline phosphatase 361. Albumin 2.3. TSH was 17.2. Lipase of 3051. On today's labs, the patient's free T4 was 0.73. His point of care lactate level was 2.46. CK-MB was 1.7 although troponins were elevated at 0.32. Potassium is in the normal range at 3.9 today, although the patient's bicarbonate is 18, BUN and creatinine are 49 and 1.42, glucose 167, total bilirubin is 0.6, direct 0.4, AST is down to 604, ALT down to 665, and alkaline phosphatase down to 246. Lipase is also down to 1587. Troponins remain elevated at 0.23. The patient's hemoglobin A1c is 9.1. Urine shows 2+ occult blood, many urine epithelial cells, no bacteria. Nitrites and leukocyte esterase are negative. Urine culture shows no growth to date. Blood culture results are pending. IMPRESSION AND PLAN: Patient with symptoms of increased liver function tests and pancreatic enzymes without a comment of ductal dilation on current imaging studies. There are gallstones and a contracted gallbladder. This is temporarily related to the onset of sirolimus use a few weeks ago. Patient has also developed evidence of herpetic stomatitis. There is a significant thrombocytopenia, although currently white count and ANC are reasonable. The pancreas appears to be generally intact, and there is also mild hepatic cirrhotic change. Differential diagnosis for the patient's LFTs and pancreatic enzymes may reflect gallstone pancreatitis; however, there is no apparent ductal dilation appreciated. 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 There was some response to oral Zovirax. Sources of diarrhea may include routine causes, parasitic or inflammatory (GVHD). I made the following recommendations: I believe an MRCP would be helpful to further clarify the biliary system. Unfortunately, with the patient's platelet count, endoscopic intervention may not be possible. Given that this has a potential of an infectious hepatitis due to HSV, then it may be prudent to change to IV acyclovir from oral. Would continue patient on n.p.o. status. However, given the patient's complex medical history, recent change of chemotherapeutic medications, and immunosuppressant potential, would have a low threshold for transfer to a referral center. Regarding the patient's diarrhea, although this may also be related to the sirolimus, additional cultures for C. difficile, routine cultures, Giardia, microsporidia, and cryptosporidium should be excluded. Endoscopic interventions with low platelets may be limited. Would keep patient n.p.o. except for ice chips to moisten the mouth. We will follow with you. If you have any questions, please do not hesitate to contact me. Thank you for allowing me to participate in the care of Mr. Brady. KARY
--- NOTE | 2018-01-06 14:54 | Discharge Summary ---
Discharge Summary Date of Service Jan 06, 2018. 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 Possible acute liver failure upon admission, improved Possible pancreatitis, upon admission, improved Oral herpes upon admission, Procedures: No Consultations: Hematology, GI, Medication Reconciliation Continued Medications: Albuterol Hfa (Ventolin Hfa) 200 Puffs/75709 Mcg Aers 2 PUFFS INH Q6H PRN for SOB/Wheezing, #1 INHALER Famotidine (Pepcid) 20 Mg Tab 20 MG PO DAILY PRN for PRN, TAB Fluconazole (Diflucan) 200 Mg Tab 200 MG PO DAILY, TAB Insulin Glargine (Lantus) 100 Unit/Ml Inj 10 UNITS SC QPM, VIAL Insulin Human Lispro (Humalog) 1 Ea Inj SQ TIDM PER SLIDING SCALE Levothyroxine Sodium (Synthroid) 125 Mcg Tab 125 MCG PO DAILY, TAB Metoprolol Tartrate (Lopressor) (Lopressor) 25 Mg Tab 12.5 MG PO BID, TAB Prednisone (Prednisone) 20 Mg Tab 20 MG PO DAILY, TAB Probiotic Product (Probiotic) 1 Cap Cap 1 CAP PO DAILY Sucralfate (Carafate) 1 Gm/10 Ml Pushpa 10 ML PO ACHS for 30 Days, ML Discontinued Medications: Sulfa/Trimethoprim (Bactrim Ds 800MG/160MG) Tab 1 TAB PO mon,tue, wed, #6 TAB Discharge Exam Generally feeling better than yesterday, no more hiccup , , no more diarrhea, no spiking fever, however this rash in the anterior chest has spreading down to the abd Review of Systems: Constitutional: + weakness, + fatigue, No fever, No chills, No sweats, No weight loss, No problem reported Eyes: No worsening of vision, No eye pain, No redness, No discharge, No diplopia, No problem reported ENT: No hearing loss, No unusual epistaxis, No nasal symptoms, No sore throat, No tinnitus, No dental problems, No trouble swallowing, No problem reported Respiratory: No cough, No sputum, No wheezing, No shortness of breath, No dyspnea on exertion, No dyspnea at rest, No hemoptysis, No problem reported Cardiovascular: No chest pain, No orthopnea, No PND, No edema, No claudication, No palpitations, No problem reported Abdomen: No pain, No nausea, No vomiting, No diarrhea, No constipation, No GI bleeding, No problem reported Musculoskeletal: No joint pain, No muscle pain, No swelling, No calf pain, No problem reported Genitourinary - Male: No hematuria, No dysuria, No urinary frequency, No urinary urgency, No urinary hesitancy, No urinary retention, No urinary incontinence, No penile discharge, No lesions, No impotence, No problem reported Neurologic: No memory loss, No paralysis, No weakness, No numbness/tingling , No vertigo, No balance problems, No problem reported Psychiatric: No depression symptoms, No anhedonism, No anxiety, No insomnia , No substance abuse, No problem reported Endocrine: No fatigue, No excessive thirst, No excessive urination, No problem reported Hematologic / Lymphatic: No abnormal bleeding/bruising, No clotting problems , No swollen lymph nodes, No night sweats, No problem reported Integumentary: + rash Physical Exam: General Appearance: WD/WN, no apparent distress Eyes: normal inspection, PERRL, EOMI ENT: normal ENT inspection, hearing grossly normal, TMs normal Neck: supple, no adenopathy, thyroid normal Respiratory/Chest: chest non-tender, lungs clear, + decreased breath sounds Cardiovascular: regular rate, rhythm, no edema, no gallop, no JVD, + systolic murmur (Possible soft murmur which is not new compared to yesterday) Abdomen / GI: normal bowel sounds, non tender, soft, no organomegaly, no pulsatile mass Extremities: normal inspection, no calf tenderness, normal capillary refill Neurologic/Psychiatric: water pump servicer II-XII nml as tested, no motor/sensory deficits , alert, normal mood/affect, normal reflexes Skin: normal color, warm/dry Hospital Course 72 year old man with a history of AML who 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 He went on a trip to [place] a few weeks ago and while he was there, he began feeling very ill. He was fatigued, weak, and had some back pain. had a vesicular eruption on his lip. He spoke with his residence life coordinator at [facility] who brought him down for some blood work. Isabell borden and his read about possible side effects of sirolimus and thought his symptoms may have been related to it, so they stopped it about a week ago. In the recent 2-3 days, he's developed profuse, watery diarrhea. sirolimus He was admitted with possible sepsis symptoms and started on broad-spectrum antibiotics. Cultures have been negative and he has been afebrile. Starting yesterday, he developed a rash across his chest that is now spreading down his trunk. 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 Hypokalemia. Anemia. Hypothyroidism with TSH 17, tx with iv levothyroxin Gallbladder stone. 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 Deep venous thrombosis prophylaxis is contraindicated, dis full code. Patient was accepted to [facility] and was transferred Total Time Spent: Greater than 30 minutes This includes examination of the patient, discharge planning, medication reconciliation, and communication with other providers. Discharge Instructions Please refer to the electronic Patient Visit Report (Discharge Instructions) for additional information. Additional Copies To Nikunj Bernardo M.D.; Dioni Pizarro M.D.; Yuan Negron MD
[2018-01-06] MEDS ORDERED: VANCOMYCIN IV 750 MG in SODIUM CHLORIDE 0.9% 250ML 250 ML IV SCH (18:00)
== END 2018-01-06 14:07 | disposition short-term general hospital (02) | DRG 871 ==
LOC: C.EDB 15:15 → C.2T 18:12 → ENRESERV 18:44
PROVIDERS: ADMIT Hospitalist; ATTEND Hospitalist
DX: A41.9 Sepsis, unspecified organism (principal); C92.90 Myeloid leukemia, unspecified, not having achieved remission; T86.09 Other complications of bone marrow transplant; N17.9 Acute kidney failure, unspecified; K85.90 Acute pancreatitis without necrosis or infection, unspecified; Z94.84 Stem cells transplant status; B00.2 Herpesviral gingivostomatitis and pharyngotonsillitis; E03.9 Hypothyroidism, unspecified; Z95.2 Presence of prosthetic heart valve; E86.0 Dehydration; E87.6 Hypokalemia; K80.20 Calculus of gallbladder without cholecystitis without obstruction; Y83.0 Surgical operation with transplant of whole organ as the cause of abnormal reaction of the patient, or of later complication, without mention of misadventure at the time of the procedure; Y92.009 Unspecified place in unspecified non-institutional (private) residence as the place of occurrence of the external cause; D69.6 Thrombocytopenia, unspecified

== ENCOUNTER 2018-07-02 12:09 | Inpatient (IN) ==
[2018-07-02] MEDS ORDERED: SODIUM CHLORIDE 0.9% 1000ML 500 ML IV ONE ×2 (12:37→13:48)
[2018-07-02] MEDS ORDERED: ACETAMINOPHEN 1,000 MG/100 ML VIAL IV ONE (12:41)
[2018-07-02] MEDS ORDERED: MoRPHine SULFATE 4 MG/ML 1 ML CARP\\VIAL IV STA (12:42)
--- NOTE | 2018-07-02 13:12 | Emergency Department Note ---
Entered by Litzy Deleon acting as a scribe for Matty Pittman MD History of Present Illness General Chief complaint: Flank Pain Stated complaint: BACK/KIDNEY PAIN, BP DROPS WHEN STANDING Time Seen by Provider: 07/02/18 12:31 Source: patient and family () Limitations: no limitations History of Present Illness Provider complaint: abdominal pain Onset (ago): month(s) 6 Location: abdomen Radiation: back Maximum Pain Intensity: 8 Current Pain Intensity: 8 Associated symptoms: + denies other symptoms (blood in urine), + shortness of breath and + other (+pain in back); no nausea/vomiting The patient is a 73 year old male who presents to the Emergency Room with complaints of abdominal pain that began 6 months prior to arrival. The patient rates his pain 8/10 in severity upon arrival. The patient states that he has shortness of breath and states that he woke up this morning with pain radiating down his left back. The patient denies any blood in his urine, nausea, or vomiting. The patient states that he was suppose to have an MRI at [facility] in 3 days for his abdominal pain. The patient denies being on any blood thinners. The patient states that he has a history of a stroke that occurred in March 2018. The patient states that he had a right rib out of place at the beginning of June. Home Medications Home Medications Medication Instructions Recorded Confirmed Type levothyroxine 150 mcg PO DAILY 04/04/18 07/02/18 History acyclovir 400 mg PO BID 06/04/18 07/02/18 History fluconazole 400 mg PO DAILY 06/04/18 07/02/18 History insulin glargine 8 unit SUBCUT HS 06/04/18 07/02/18 History insulin lispro [Humalog KwikPen See Label Instructions .ROUTE 06/04/18 07/02/18 History Insulin] .COMPLEX metoprolol succinate 12.5 mg PO BID 06/04/18 07/02/18 History Probiotic 1 cap PO DAILY 07/02/18 07/02/18 History acetaminophen [Tylenol] 325 mg PO Q6H PRN 07/02/18 07/02/18 History simethicone 125 mg PO Q6H PRN 07/02/18 07/02/18 History sucralfate [Carafate] 1 g PO QID 07/02/18 07/02/18 History Allergies Allergy/AdvReac Type Severity Reaction Status Date / Time No Known Allergies Allergy Unverified 06/04/18 06:13 Past Med/Surg History Medical History Chronic kidney disease (Chronic) Parotid tumor (Resolved) 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) HTN (hypertension) (Chronic) Hypothyroidism (Chronic) 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 and A total of 10 systems reviewed and were otherwise negative Physical Exam Vital Signs Vital Signs - 24 hr 07/02/18 12:18 07/02/18 12:28 07/02/18 13:14 Temperature 36.7 C Temperature Source Oral Sepsis Recent Fever Within 48 Hours No Sepsis New/Unexplained Change in Mental Status No Sepsis Action Taken by Nursing No Action Required Pulse Rate 97 H Pulse Rate [Finger] 83 Respiratory Rate 20 22 Respiratory Effort / Characteristics Non-Labored Respiratory Depth Normal Blood Pressure 112/76 Blood Pressure [Right Arm] Blood Pressure Mean 88 Blood Pressure Mean [Right Arm] Blood Pressure Position [Right Arm] Pulse Oximetry 100 97 96 Oxygen Delivery Method Room Air Room Air Room Air Oxygen Flow Rate 07/02/18 13:36 07/02/18 14:00 07/02/18 14:10 Temperature Temperature Source Sepsis Recent Fever Within 48 Hours Sepsis New/Unexplained Change in Mental Status Sepsis Action Taken by Nursing Pulse Rate 70 79 Pulse Rate [Finger] 86 Respiratory Rate 16 16 17 Respiratory Effort / Characteristics Respiratory Depth Blood Pressure 152/91 H Blood Pressure [Right Arm] 152/95 H Blood Pressure Mean 111 Blood Pressure Mean [Right Arm] 114 Blood Pressure Position [Right Arm] Pulse Oximetry 99 100 100 Oxygen Delivery Method Room Air Oxygen Flow Rate 07/02/18 14:20 07/02/18 14:30 07/02/18 14:31 Temperature Temperature Source Sepsis Recent Fever Within 48 Hours Sepsis New/Unexplained Change in Mental Status Sepsis Action Taken by Nursing Pulse Rate 72 74 86 Pulse Rate [Finger] Respiratory Rate 14 19 20 Respiratory Effort / Characteristics Respiratory Depth Blood Pressure 166/118 H Blood Pressure [Right Arm] Blood Pressure Mean 134 Blood Pressure Mean [Right Arm] Blood Pressure Position [Right Arm] Pulse Oximetry 100 100 100 Oxygen Delivery Method Oxygen Flow Rate 07/02/18 14:40 07/02/18 14:50 07/02/18 15:00 Temperature Temperature Source Sepsis Recent Fever Within 48 Hours Sepsis New/Unexplained Change in Mental Status Sepsis Action Taken by Nursing Pulse Rate 77 69 73 Pulse Rate [Finger] Respiratory Rate 19 17 16 Respiratory Effort / Characteristics Respiratory Depth Blood Pressure 137/87 Blood Pressure [Right Arm] Blood Pressure Mean 103 Blood Pressure Mean [Right Arm] Blood Pressure Position [Right Arm] Pulse Oximetry 97 100 100 Oxygen Delivery Method Oxygen Flow Rate 07/02/18 15:10 07/02/18 15:20 07/02/18 15:30 Temperature Temperature Source Sepsis Recent Fever Within 48 Hours Sepsis New/Unexplained Change in Mental Status Sepsis Action Taken by Nursing Pulse Rate 77 71 73 Pulse Rate [Finger] Respiratory Rate 20 15 17 Respiratory Effort / Characteristics Respiratory Depth Blood Pressure 123/80 Blood Pressure [Right Arm] Blood Pressure Mean 94 Blood Pressure Mean [Right Arm] Blood Pressure Position [Right Arm] Pulse Oximetry 100 99 99 Oxygen Delivery Method Oxygen Flow Rate 07/02/18 15:40 07/02/18 15:50 07/02/18 16:00 Temperature Temperature Source Sepsis Recent Fever Within 48 Hours Sepsis New/Unexplained Change in Mental Status Sepsis Action Taken by Nursing Pulse Rate 68 70 77 Pulse Rate [Finger] Respiratory Rate 14 15 10 L Respiratory Effort / Characteristics Respiratory Depth Blood Pressure Blood Pressure [Right Arm] Blood Pressure Mean Blood Pressure Mean [Right Arm] Blood Pressure Position [Right Arm] Pulse Oximetry 98 98 92 Oxygen Delivery Method Oxygen Flow Rate 07/02/18 16:01 07/02/18 16:10 07/02/18 16:20 Temperature Temperature Source Sepsis Recent Fever Within 48 Hours Sepsis New/Unexplained Change in Mental Status Sepsis Action Taken by Nursing Pulse Rate 69 67 75 Pulse Rate [Finger] Respiratory Rate 17 15 14 Respiratory Effort / Characteristics Respiratory Depth Blood Pressure 133/88 Blood Pressure [Right Arm] Blood Pressure Mean 103 Blood Pressure Mean [Right Arm] Blood Pressure Position [Right Arm] Pulse Oximetry 99 98 99 Oxygen Delivery Method Oxygen Flow Rate 07/02/18 16:39 07/02/18 17:08 07/02/18 19:49 Temperature 36.6 C 36.3 C L Temperature Source Oral Oral Sepsis Recent Fever Within 48 Hours Sepsis New/Unexplained Change in Mental Status Sepsis Action Taken by Nursing Pulse Rate Pulse Rate [Finger] 93 H 85 104 H Respiratory Rate 17 20 20 Respiratory Effort / Characteristics Non-Labored Spontaneous Respiratory Depth Normal Blood Pressure Blood Pressure [Right Arm] 139/89 158/96 H 119/81 Blood Pressure Mean Blood Pressure Mean [Right Arm] 105 116 93 Blood Pressure Position [Right Arm] Lying Sitting Pulse Oximetry 98 100 100 Oxygen Delivery Method Nasal Cannula Room Air Oxygen Flow Rate 3 GENERAL: Awake, alert, chronically ill-appearing, in no distress HENT: Normocephalic, atraumatic. Oropharynx with dry mucous membranes and otherwise unremarkable. EYES: Normal conjunctiva. Sclera non-icteric. NECK: Supple. No nuchal rigidity. FROM. No JVD. RESPIRATORY: Clear to auscultation. CARDIAC: Regular rate, normal rhythm. Extremities warm and well perfused. Pulses equal. ABDOMEN: Generalized abdominal discomfort. Soft, non-distended. Left flank/CVA discomfort without discrete tenderness. No rebound or guarding. No masses. RECTAL: Deferred. MUSCULOSKELETAL: Chest examination reveals no tenderness. The back is symmetrical on inspection without obvious abnormality. There is no CVA tenderness to palpation. No joint edema. LOWER EXTREMITIES: Calves are equal size bilaterally and non-tender. No edema. No discoloration. NEURO: Baseline mild dysarthria and subtle right sided weakness at baseline. Otherwise, no sensory or motor deficits noted. SKIN: No rash or jaundice noted. Course 1233: Past medical records reviewed. The patient was evaluated in room C12B, and a complete history and physical examination were performed. 1401: I checked on and updated the patient on his results. 1411: I discussed the patient's [facility] for further hospitalization. Consultations Consultation #1: EVARISTO Torrez Time: 14:11 Administered Medications Acetaminophen (Tylenol) 650 mg PO Q8H [facility] Stop: 08/01/18 21:59 Last Admin: 07/02/18 23:27 Dose: 650 mg Heparin Sodium (Porcine) (Heparin Sodium (Porcine)) 5,000 units SQ Q8 [facility] Stop: 08/01/18 21:59 Last Admin: 07/02/18 21:21 Dose: 5,000 units Sodium Chloride (Nss 1000ml) 1,000 mls @ 80 mls/hr IV .[id number] [facility] Stop: 07/03/18 06:05 Last Admin: 07/02/18 19:23 Dose: 80 mls/hr Insulin Glargine (Lantus Solostar Pen) 8 units SC HS [facility] Stop: 08/01/18 20:59 Last Admin: 07/02/18 21:21 Dose: 8 units Insulin Human Lispro (Humalog) 0 units SQ AC [facility] Stop: 08/01/18 18:59 Last Admin: 07/02/18 19:07 Dose: Not Given Ioversol (Optiray 320 100ml) 94 ml IV ONCE PRN PRN Reason: Interaction Checking Stop: 07/06/18 18:32 Last Admin: 07/02/18 18:34 Dose: 1 ml Metoprolol Succinate (Toprol Xl) 12.5 mg PO BID [facility] Stop: 08/01/18 20:59 Last Admin: 07/02/18 21:18 Dose: 12.5 mg Simethicone (Mylicon) 80 mg PO Q6H PRN PRN Reason: Gastrointestinal Spasms Or [employer] Stop: 08/01/18 17:35 Last Admin: 07/02/18 20:01 Dose: 80 mg Tramadol HCl (Ultram) 50 mg PO Q8H [facility] Stop: 08/01/18 17:35 Last Admin: 07/02/18 18:29 Dose: Not Given Discontinued Medications Acetaminophen (Tylenol) Confirm Administered Dose 650 mg .ROUTE .STK-MED ONE Stop: 07/02/18 17:55 Last Admin: 07/02/18 17:57 Dose: 650 mg Fentanyl Citrate (Fentanyl Citrate) 50 mcg IV NOW [facility] Stop: 07/02/18 15:02 Last Admin: 07/02/18 15:06 Dose: 50 mcg Acetaminophen (Ofirmev) 1,000 mg in 100 mls @ 400 mls/hr IV NOW ONE Stop: 07/02/18 12:55 Last Infusion: 07/02/18 13:56 Dose: 0 mls/hr Admin: 07/02/18 13:04 Dose: 400 mls/hr Sodium Chloride (Nss 1000ml) 500 mls @ 999 mls/hr IV .Q31M ONE Stop: 07/02/18 13:07 Last Infusion: 07/02/18 14:24 Dose: 0 mls/hr Admin: 07/02/18 13:04 Dose: 999 mls/hr Sodium Chloride (Nss 1000ml) 500 mls @ 999 mls/hr IV .Q31M ONE Stop: 07/02/18 14:18 Last Infusion: 07/02/18 14:57 Dose: 0 mls/hr Admin: 07/02/18 14:24 Dose: 999 mls/hr Insulin Aspart (Novolog Flexpen) 0 units SC ACHS [facility]ASSANDRA Stop: 08/01/18 17:35 Last Admin: 07/02/18 18:36 Dose: Not Given Morphine Sulfate (Morphine Sulfate) 4 mg IV NOW STA Stop: 07/02/18 12:43 Last Admin: 07/02/18 13:01 Dose: Not Given Potassium Chloride (Klor-Con M20) 40 meq PO NOW ONE Stop: 07/02/18 17:37 Last Admin: 07/02/18 19:23 Dose: 40 meq Tramadol HCl (Ultram) Confirm Administered Dose 50 mg .ROUTE .STK-MED ONE Stop: 07/02/18 17:55 Last Admin: 07/02/18 17:57 Dose: 50 mg Medical Decision Making Differential Diagnosis Differential diagnosis: Etiologies such as shingles, pyelonephritis/UTI, renal colic, appendicitis, diverticulitis, mesenteric ischemia, torsion, aortic pathology, infections, inflammatory bowel disease, bowel obstruction, PUD, biliary pathology, as well as others were entertained. Medical Records Attestation: I reviewed the patient's medical records. Home Medications Current Medication List: was personally reviewed by me Laboratory Data Attestation: I reviewed the patient's lab results. Result diagrams: 07/02/18 13:05 07/02/18 13:05 Lab Results 07/02/18 07/02/18 07/02/18 Range/Units 13:05 13:05 13:05 WBC 7.41 (4.8-10.8) K/uL RBC 3.04 L (4.7-6.1) M/uL Hgb 9.8 L (14.0-18.0) g/dL Hct 28.1 L (42-52) % MCV 92.4 (80-100) fL MCH 32.2 (25-34) pg MCHC 34.9 (32-36) g/dL RDW Std Deviation 51.2 H (36.4-46.3) fL RDW Coeff of Paul 15.1 H (11.5-14.5) % Plt Count 147 (130-400) K/uL MPV 9.1 (7.4-10.4) fL Immature Gran % (Auto) 0.9 % Neut % (Auto) 51.4 % Lymph % (Auto) 33.1 % Hendricks % (Auto) 11.9 % Eos % (Auto) 2.4 % Baso % (Auto) 0.3 % Immature Gran # (Auto) 0.07 H (0.00-0.02) K/uL Neut # (Auto) 3.81 (1.4-6.5) K/uL Lymph # (Auto) 2.45 (1.2-3.4) K/uL Hendricks # (Auto) 0.88 H (0.11-0.59) K/uL Eos # (Auto) 0.18 (0-0.5) K/uL Baso # (Auto) 0.02 (0-0.2) K/uL PT 10.8 (9.0-12.0) Seconds INR 1.1 (0.9-1.1) Sodium 136 (136-145) mmol/L Potassium 3.3 L (3.5-5.1) mmol/L Chloride 111 H (98-107) mmol/L Carbon Dioxide 18 L (21-32) mmol/L Anion Gap 7.0 (3-11) BUN 27 H (7-18) mg/dl Creatinine 0.86 (0.6-1.4) mg/dl Est Cr Clr Drug Dosing Not Reportable Est GFR ( Amer) 101.1 Est GFR (Non-Af Amer) 87.2 BUN/Creatinine Ratio 31.3 H (10-20) Glucose 129 H (70-99) mg/dl POC Glucose (70-99) Lactate (0.4-2.0) mmol/L Calcium 8.3 L (8.5-10.1) mg/dl Phosphorus 2.4 L (2.5-4.9) mg/dl Magnesium 2.0 (1.8-2.4) mg/dl Total Bilirubin 0.2 (0.2-1) mg/dl Direct Bilirubin 0.1 (0-0.2) mg/dl AST 23 (15-37) U/L ALT 38 (12-78) U/L Alkaline Phosphatase 337 H (45-117) U/L Troponin I 0.059 H* (0-0.045) ng/ml Total Protein 6.4 (6.4-8.2) gm/dl Albumin 2.8 L (3.4-5.0) gm/dl Globulin 3.6 (2.5-4.0) gm/dl Albumin/Globulin Ratio 0.8 L (0.9-2) Lipase 40 L (73-393) U/L Urine Color Urine Appearance (Clear) Urine pH (4.5-7.5) Ur Specific [place] (1.000-1.030) Urine Protein (Negative) Urine Glucose (UA) (Negative) Urine Ketones (Negative) Urine Blood (Negative) Urine Nitrite (Negative) Urine Bilirubin (Negative) Urine Urobilinogen (Negative) Ur Leukocyte Esterase (Negative) Urine WBC (Auto) (0-5) /hpf Urine RBC (Auto) (0-4) /hpf U Hyaline Cast (Auto) (0-5) /lpf U Epithel Cells (Auto) (0-5) /lpf Urine Bacteria (Auto) (Negative) 07/02/18 07/02/18 07/02/18 Range/Units 14:35 16:30 17:40 WBC (4.8-10.8) K/uL RBC (4.7-6.1) M/uL Hgb (14.0-18.0) g/dL Hct (42-52) % MCV (80-100) fL MCH (25-34) pg MCHC (32-36) g/dL RDW Std Deviation (36.4-46.3) fL RDW Coeff of Paul (11.5-14.5) % Plt Count (130-400) K/uL MPV (7.4-10.4) fL Immature Gran % (Auto) % Neut % (Auto) % Lymph % (Auto) % Hendricks % (Auto) % Eos % (Auto) % Baso % (Auto) % Immature Gran # (Auto) (0.00-0.02) K/uL Neut # (Auto) (1.4-6.5) K/uL Lymph # (Auto) (1.2-3.4) K/uL Hendricks # (Auto) (0.11-0.59) K/uL Eos # (Auto) (0-0.5) K/uL Baso # (Auto) (0-0.2) K/uL PT (9.0-12.0) Seconds INR (0.9-1.1) Sodium (136-145) mmol/L Potassium (3.5-5.1) mmol/L Chloride (98-107) mmol/L Carbon Dioxide (21-32) mmol/L Anion Gap (3-11) BUN (7-18) mg/dl Creatinine (0.6-1.4) mg/dl Est Cr Clr Drug Dosing Est GFR ( Amer) Est GFR (Non-Af Amer) BUN/Creatinine Ratio (10-20) Glucose (70-99) mg/dl POC Glucose 99 (70-99) Lactate 0.7 (0.4-2.0) mmol/L Calcium (8.5-10.1) mg/dl Phosphorus (2.5-4.9) mg/dl Magnesium (1.8-2.4) mg/dl Total Bilirubin (0.2-1) mg/dl Direct Bilirubin (0-0.2) mg/dl AST (15-37) U/L ALT (12-78) U/L Alkaline Phosphatase (45-117) U/L Troponin I (0-0.045) ng/ml Total Protein (6.4-8.2) gm/dl Albumin (3.4-5.0) gm/dl Globulin (2.5-4.0) gm/dl Albumin/Globulin Ratio (0.9-2) Lipase (73-393) U/L Urine Color Yellow Urine Appearance Clear (Clear) Urine pH 5.0 (4.5-7.5) Ur Specific [place] 1.017 (1.000-1.030) Urine Protein Trace H (Negative) Urine Glucose (UA) Negative (Negative) Urine Ketones Negative (Negative) Urine Blood Negative (Negative) Urine Nitrite Negative (Negative) Urine Bilirubin Negative (Negative) Urine Urobilinogen Negative (Negative) Ur Leukocyte Esterase Negative (Negative) Urine WBC (Auto) 1-5 (0-5) /hpf Urine RBC (Auto) 5-10 H (0-4) /hpf U Hyaline Cast (Auto) 5-10 H (0-5) /lpf U Epithel Cells (Auto) 10-20 H (0-5) /lpf Urine Bacteria (Auto) Negative (Negative) 07/02/18 07/02/18 Range/Units 18:56 20:29 WBC (4.8-10.8) K/uL RBC (4.7-6.1) M/uL Hgb (14.0-18.0) g/dL Hct (42-52) % MCV (80-100) fL MCH (25-34) pg MCHC (32-36) g/dL RDW Std Deviation (36.4-46.3) fL RDW Coeff of Paul (11.5-14.5) % Plt Count (130-400) K/uL MPV (7.4-10.4) fL Immature Gran % (Auto) % Neut % (Auto) % Lymph % (Auto) % Hendricks % (Auto) % Eos % (Auto) % Baso % (Auto) % Immature Gran # (Auto) (0.00-0.02) K/uL Neut # (Auto) (1.4-6.5) K/uL Lymph # (Auto) (1.2-3.4) K/uL Hendricks # (Auto) (0.11-0.59) K/uL Eos # (Auto) (0-0.5) K/uL Baso # (Auto) (0-0.2) K/uL PT (9.0-12.0) Seconds INR (0.9-1.1) Sodium (136-145) mmol/L Potassium (3.5-5.1) mmol/L Chloride (98-107) mmol/L Carbon Dioxide (21-32) mmol/L Anion Gap (3-11) BUN (7-18) mg/dl Creatinine (0.6-1.4) mg/dl Est Cr Clr Drug Dosing Est GFR ( Amer) Est GFR (Non-Af Amer) BUN/Creatinine Ratio (10-20) Glucose (70-99) mg/dl POC Glucose 135 H (70-99) Lactate (0.4-2.0) mmol/L Calcium (8.5-10.1) mg/dl Phosphorus (2.5-4.9) mg/dl Magnesium (1.8-2.4) mg/dl Total Bilirubin (0.2-1) mg/dl Direct Bilirubin (0-0.2) mg/dl AST (15-37) U/L ALT (12-78) U/L Alkaline Phosphatase (45-117) U/L Troponin I 0.049 H* (0-0.045) ng/ml Total Protein (6.4-8.2) gm/dl Albumin (3.4-5.0) gm/dl Globulin (2.5-4.0) gm/dl Albumin/Globulin Ratio (0.9-2) Lipase (73-393) U/L Urine Color Urine Appearance (Clear) Urine pH (4.5-7.5) Ur Specific [place] (1.000-1.030) Urine Protein (Negative) Urine Glucose (UA) (Negative) Urine Ketones (Negative) Urine Blood (Negative) Urine Nitrite (Negative) Urine Bilirubin (Negative) Urine Urobilinogen (Negative) Ur Leukocyte Esterase (Negative) Urine WBC (Auto) (0-5) /hpf Urine RBC (Auto) (0-4) /hpf U Hyaline Cast (Auto) (0-5) /lpf U Epithel Cells (Auto) (0-5) /lpf Urine Bacteria (Auto) (Negative) Imaging Data Radiologist's Impression: Radiology results as stated below per my review and the radiologist's interpretation: XR chest 1V portable CLINICAL HISTORY: Chest Pain dyspnea COMPARISON STUDY: 06/04/2018 FINDINGS: Prior median sternotomy. Central catheters. Vena cava. Slight chronic interstitial prominence. No focal infiltrate. Degenerative change of both shoulders. IMPRESSION: Chronic change. No acute process. The above report was generated using voice recognition software. It may contain grammatical, syntax or spelling errors. Electronically signed by: Pepe Bardales M.D. 07/02/2018 1:[address] SCAN OF THE ABDOMEN AND PELVIS WITHOUT CONTRAST CLINICAL HISTORY: left flank pain COMPARISON STUDY: 04/04/2018 TECHNIQUE: CT scan of the abdomen and pelvis was performed from the lung bases to the proximal femurs. Images are reviewed in the axial, sagittal, and coronal planes. IV contrast was not administered for this examination. A dose lowering technique was utilized adhering to the principles of ALARA. CT DOSE: 268.19 mGycm FINDINGS: Lower chest: There are subtle bibasilar groundglass opacities and interstitial thickening. There are no pleural effusions. Liver: The unenhanced liver is normal in size, contour, and attenuation. There is no intrahepatic biliary ductal dilatation. Gallbladder: Cholelithiasis Spleen: Normal in size and attenuation. Pancreas: Unremarkable. Adrenal glands: There is left adrenal gland nodular thickening, unchanged the prior study and likely secondary to adenomatous hyperplasia Kidneys: There is no hydronephrosis. There is a punctate left renal calculus. There are multiple right renal calculi, the largest of which measures 4 mm. No ureteral calculi are visualized. Bowel: There are no transition zones to indicate bowel obstruction. There is no evidence of acute diverticulitis. There are no findings to indicate acute appendicitis. Peritoneum: There is no intraperitoneal free air or abdominal ascites. Vasculature: The abdominal aorta is normal in course and caliber. Adenopathy: None. Pelvic viscera: The prostate is markedly enlarged measuring 72 mm transversely. There is mild bladder wall thickening, likely secondary to chronic bladder outlet obstruction Skeletal structures: No destructive osseous lesions are seen. IMPRESSION: 1. Bilateral nephrolithiasis 2. No ureteral calculi identified 3. No evidence of bowel obstruction. No evidence of free air 4. Marked prostamegaly 5. Cholelithiasis Electronically signed by: Clarence Jacobsen M.D. 07/02/2018 1:40 PM ECG Data Attestation: I personally reviewed and interpreted this ECG as follows: Indication: abdominal pain Rate (beats per minute): 80 Rhythm: normal sinus Findings: + other (baseline artifact); no acute ischemic change and no ectopy Blood Pressure Blood Pressure Findings: Normal blood pressure Blood Pressure Disposition: further management by hospitalist DOUGIE Narrative The patient is a pleasant 73-year-old gentleman with a comp gated past medical history of AML in remission, CVA, chronic abdominal pain, CKD who presents emergency department with left flank pain in the setting of his chronic undiagnosed abdominal pain per hpi. On arrival the patient is chronically ill- appearing but no acute distress, afebrile stable vital signs. The patient appears clinically dry. On exam the patient has generalized abdominal discomfort and left flank and CVA discomfort without discrete tenderness. EKG without evidence of acute ischemia. Chest x-ray negative for pneumonia. WBC within normal limits. H/H 9.8/20.1 within patient's baseline. Chemistry with creatinine of 0.86. BUN 27. Bicarb 18 with normal anion gap. Chemistry is 0.059 the setting of most recent values undetectable in May. Of note the patient did have an an STEMI which was thought to be secondary to demand in the setting of sepsis in March/April where troponin peaked at 10.6. Per prior records describe that patient had a heart catheterization in preparation for surgery in 2012 that demonstrated nonobstructive coronary disease. Patient reevaluated and sleeping comfortably with improvement in his back pain. Given the patient's troponin elevation in the setting of his back pain symptoms reasonable to admit for further management. PE considered however given the patient is not tachycardic or hypoxic will defer CT at this time given the patient's history of CKD although his kidney function is normal today. Case was discussed with Meenakshi Torrez PA-C, will evaluate the patient for admission. Impression & Plan Acute back pain, Elevated troponin Discharge Plan Visit Data *Final* Discharge Date/Time: 07/02/18 16:49 Chief Complaint: Flank Pain Stated Complaint: BACK/KIDNEY PAIN, BP DROPS WHEN STANDING ED Provider: Matty Pittman Discharge Problem: Acute back pain, Elevated troponin Patient Disposition: Admitted As Inpatient Discharge Instructions Interventions: ED Discharge Assessment Last Done: 07/02/18 16:49 The scribe's documentation has been prepared under my direction and personally reviewed by me in its entirety. I confirm that the note above accurately reflects all work, treatment, procedures, and medical decision making performed by me.
[2018-07-02 13:21] LABS: Basophils # (auto) 0.02 K/uL (0-0.2); Basophils % (auto) 0.3 %; Eosinophils # (auto) 0.18 K/uL (0-0.5); Eosinophils % (auto) 2.4 %; Hematocrit (blood only) 28.1 % (42-52); Hemoglobin 9.8 g/dL (14.0-18.0); Immature Granulocytes # (auto) 0.07 K/uL (0.00-0.02); Immature Granulocytes % (auto) 0.9 %; Lymphocytes # (auto) 2.45 K/uL (1.2-3.4); Lymphocytes % (auto) 33.1 %; Mean Corpuscular Hgb Conc 34.9 g/dL (32-36); Mean Corpuscular Volume 92.4 fL (80-100); Mean Platelet Volume 9.1 fL (7.4-10.4); Monocytes # (auto) 0.88 K/uL (0.11-0.59); Monocytes % (auto) 11.9 %; Neutrophils # (auto) 3.81 K/uL (1.4-6.5); Neutrophils % (auto) 51.4 %; Platelet Count 147 K/uL (130-400); RDW Coefficient of Variation 15.1 % (11.5-14.5); RDW Standard Deviation 51.2 fL (36.4-46.3); Red Blood Count 3.04 M/uL (4.7-6.1); White Blood Count 7.41 K/uL (4.8-10.8)
--- NOTE | 2018-07-02 13:29 | XRay Report ---
XR chest 1V portable CLINICAL HISTORY: Chest Pain dyspnea COMPARISON STUDY: 06/04/2018 FINDINGS: Prior median sternotomy. Central catheters. Vena cava. Slight chronic interstitial prominen ce. No focal infiltrate. Degenerative change of both shoulders. IMPRESSION: Chronic change. No acute process. The above report was generated using voice recognition software. It may contain grammatical, syntax or spelling errors. Electronically signed by: Pepe Bardales M.D. 07/02/2018 1:28 PM
[2018-07-02 13:36] LABS: Alanine Aminotransferase 38 U/L (12-78); Albumin Level 2.8 gm/dl (3.4-5.0); Aspartate Aminotransferase 23 U/L (15-37); BUN Creatinine Ratio 31.3 (10-20); Bilirubin Direct 0.1 mg/dl (0-0.2); Blood Urea Nitrogen 27 mg/dl (7-18); Calcium 8.3 mg/dl (8.5-10.1); Carbon Dioxide 18 mmol/L (21-32); Chloride 111 mmol/L (98-107); Est GFR (African American) 101.1; Est GFR (Non-African American) 87.2; Glucose 129 mg/dl (70-99); Potassium 3.3 mmol/L (3.5-5.1); Sodium 136 mmol/L (136-145)
[2018-07-02 13:37] LABS: INR 1.1 (0.9-1.1); Prothrombin Time 10.8 Seconds (9.0-12.0)
--- NOTE | 2018-07-02 13:42 | CT Scan Report ---
CT SCAN OF THE ABDOMEN AND PELVIS WITHOUT CONTRAST CLINICAL HISTORY: left flank pain COMPARISON STUDY: 04/04/2018 TECHNIQUE: CT scan of the abdomen and pelvis was performed from the lung bases to the proximal femurs . Images are reviewed in the axial, sagittal, and coronal planes. IV contrast was not administered fo r this examination. A dose lowering technique was utilized adhering to the principles of ALARA. CT DOSE: 268.19 mGycm FINDINGS: Lower chest: There are subtle bibasilar groundglass opacities and interstitial thickening. There are no pleural effusions. Liver: The unenhanced liver is normal in size, contour, and attenuation. There is no intrahepatic zhen iary ductal dilatation. Gallbladder: Cholelithiasis Spleen: Normal in size and attenuation. Pancreas: Unremarkable. Adrenal glands: There is left adrenal gland nodular thickening, unchanged the prior study and likely secondary to adenomatous hyperplasia Kidneys: There is no hydronephrosis. There is a punctate left renal calculus. There are multiple righ t renal calculi, the largest of which measures 4 mm. No ureteral calculi are visualized. Bowel: There are no transition zones to indicate bowel obstruction. There is no evidence of acute div erticulitis. There are no findings to indicate acute appendicitis. Peritoneum: There is no intraperitoneal free air or abdominal ascites. Vasculature: The abdominal aorta is normal in course and caliber. Adenopathy: None. Pelvic viscera: The prostate is markedly enlarged measuring 72 mm transversely. There is mild bladder wall thickening, likely secondary to chronic bladder outlet obstruction Skeletal structures: No destructive osseous lesions are seen. IMPRESSION: 1. Bilateral nephrolithiasis 2. No ureteral calculi identified 3. No evidence of bowel obstruction. No evidence of free air 4. Marked prostamegaly 5. Cholelithiasis Electronically signed by: Clarence Jacobsen M.D. 07/02/2018 1:40 PM
[2018-07-02 13:50] LABS: Albumin Globulin Ratio 0.8 (0.9-2); Alkaline Phosphatase 337 U/L (45-117); Bilirubin,Total 0.2 mg/dl (0.2-1); Globulin 3.6 gm/dl (2.5-4.0); Phosphorus 2.4 mg/dl (2.5-4.9); Total Protein 6.4 gm/dl (6.4-8.2); Troponin I 0.059 ng/ml (0-0.045)
[2018-07-02 14:55] LABS: Appearance Urine Clear (Clear); Bacteria Urine Automated Negative (Negative); Bilirubin Urine Negative (Negative); Color Urine Yellow; Glucose Urine UA Negative (Negative); Ketones Urine Negative (Negative); Leukocyte Esterase Urine Negative (Negative); Nitrite Urine Negative (Negative); Protein Urine Trace (Negative); Specific Gravity Urine 1.017 (1.000-1.030); Urobilinogen Urine Negative (Negative)
[2018-07-02] MEDS ORDERED: fentaNYL citrate 100 MCG/2 ML VIAL IV STA (15:01)
--- NOTE | 2018-07-02 15:54 | History & Physical Report ---
Addendum entered and electronically signed by Jena Zavaleta PA-C 19:00: Addendum (Blank) Addendum July 02, 2018 18:59 Attending spoke to pt's heme/onc. Ok to hold fluconazole and acyclovir at this time Original Note: Date of Service July 02, 2018 Assessment & Plan (1) Abdominal pain: Reported abdominal pain x months. Usual pain is lower abdomen, sometimes diffuse pain Reported chronic loose stools, hx c-diff last year. 06/29/18 out patient C-diff negative. Had peg tube removed on 06/06/18, still with abdominal pain Increased lower and mid abdominal pain today. Denies N/V, fever or chills. In ER pt afebrile, P: 97, R: 20, BP:112/76, 100%RA. WBC: 7, Hgb: 9.8 (baseline ~ 10), CO2: 18, ALK Phos: 337 (chronically elevated), AST: 23, ALT: 38, lipase: 40 , UA: trace protein, RBC: 5-10, hyaline cast: 5-10, 10-20 epithelial CXR: no acute changes CT ABD/PELVIS: Bilateral nephrolithiasis. No ureteral calculi identified. No evidence of bowel obstruction. No evidence of free air. Marked prostamegaly. Cholelithiasis In ER was given 1L NSS, morphine 4mg, Tylenol IV, fentanyl 50mcg with moderate relief of abdominal pain -clear liquids -NSS -CT abd/pelvis w/contrast -Tylenol, tramadol scheduled for pain, morphine prn pain -consider GI consult if no improvement -pt was scheduled to have MRCP outpatient this week at [facility] -monitor cbc, cmp (2) Acute back pain: Reported new onset L lower back pain, non-radiating. On exam no spinous process tenderness to palpation. CT ABD/PELVIS: Skeletal structures: No destructive osseous lesions are seen. -may need to consider further imaging or ortho referral if no improvement -ICE to area TID (3) Elevated troponin: Troponin: 0.05. No acute ST changes noted on EKG. Denies CP. Hx echo: 05/2018: EF: 60-65%, grade I diastolic dysfunction, mild mitral regurgitation, abnormal septal wall motion consistent with post-op status Hx cath 2012: mild diffuse non-obstructive disease -trend troponin -cardiology consultation appreciate recommendations (4) Chronic kidney disease: Hx FISH Cr: 0.86. 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 See addendum History of Present Illness Chief Complaint: abdominal pain Primary Care Provider: Sonja Peña, Pt is 73 y/o M with PMH AML s/p bone marrow transplant in 09/[address] [facility] now considered to be in second remission f/u Dr Munson at [facility], hx of [id number] not on immunosuppressants can tolerate, HTN, HLD, hypothyroidism, chronic right-sided CHF, h/o aortic valve replacement in 2012, steroid-induced DM II, FISH presented to ER with complaint of increased abdominal pain left lower back pain. Patient with history of abdominal pain typically lower abdominal pain, however can be diffuse and has had for several months. Also history of elevated liver functions and has been following with manager chemical at [facility]. Is to have MRI liver with and without contrast at [facility] in a couple of days. reports workup thus far has been benign. States last night and today with increased abdominal pain, mostly lower abdominal pain but some mid abdominal pain also. Also developed left sided back pain, seemed mid back and now lower back. Denies pain radiating from back to abdomen. History C. difficile last year. Patient with reported chronic loose stools daily. Had negative c-diff outpatient on 06/29/18. Denies increased diarrhea. Denies nausea, vomiting, fever/chills, hematochezia, melena. In past have tried eliminating milk products without any improvement of symptoms. Last week was started on carafate by PCP without any relief. Takes Tylenol, however that has been decreased to 2G daily secondary to elevated liver functions. Also takes simethicone QID prn, sometimes notices a little relief, no relief at other times. Reports patient with intermittent urinary retention. History of BPH however has tolerated Flomax in the past. Has been taking herbal urinary supplement. Reports last night had some difficulty urinating, however was then able to urinate. Reports urinating today. Denies dysuria, hematuria. Reports history of nephrolithiasis however denies ureteral calculi. Denies fever/chills, diaphoresis, CHRISTIANSON, dizziness, syncope, neck pain, CP, SOB, orthopnea, palpitations, cough, sore throat, choking, otalgia, rhinorrhea, paresthesias, extremity edema, rashes. 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 Had PEG tube which was removed 06/06/18. Patient now tolerating mechanical soft diet and supplementing with clear Ensure 5 times daily. Hospitalization 05/25/18 at [facility] for chest pain. Had negative troponins x3, d- dimer: 960 no DVT on lower extremity venous Doppler, no PE study done secondary to creatinine. Thought chest pain likely musculoskeletal. Hematology has decreased fluconazole dose to 400mg daily and acyclovir to 400mg BID. 06/2018: Endoscopy: Nonbleeding erosive gastropathy surrounding PEG. PEG tube was removed secondary to pain and no longer needing it. Biopsy: Benign small bowel with no specific pathological changes. Colonoscopy: Diverticulosis, external and internal hemorrhoids. Biopsy: Benign colonic mucosa with no specific pathological changes. Ambulates with walker. Denies recent falls. Allergies Allergy/AdvReac Type Severity Reaction Status Date / Time No Known Allergies Allergy Unverified 06/04/18 06:13 Home Medications Home Medications Medication Instructions Recorded Confirmed Type levothyroxine 150 mcg PO DAILY 04/04/18 07/02/18 History acyclovir 400 mg PO BID 06/04/18 07/02/18 History fluconazole 400 mg PO DAILY 06/04/18 07/02/18 History insulin glargine 8 unit SUBCUT HS 06/04/18 07/02/18 History insulin lispro [Humalog KwikPen See Label Instructions .ROUTE 06/04/18 07/02/18 History Insulin] .COMPLEX metoprolol succinate 12.5 mg PO BID 06/04/18 07/02/18 History Probiotic 1 cap PO DAILY 07/02/18 07/02/18 History acetaminophen [Tylenol] 325 mg PO Q6H PRN 07/02/18 07/02/18 History simethicone 125 mg PO Q6H PRN 07/02/18 07/02/18 History sucralfate [Carafate] 1 g PO QID 07/02/18 07/02/18 History Past Med/Surg History Medical History Chronic kidney disease (Chronic) Parotid tumor (Resolved) 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, September 2016 Family History Other CAD (coronary artery disease) Stroke Thyroid disorder Social History Current Living Situation: Spouse Feels Safe at Home: Yes Safety Concerns: Feels Safe At This Time Smoking Status: Never smoker Second Hand Exposure: No Hx Alcohol Use: No Hx Substance Use: No Beliefs That Will Affect Care: None Preferred Language: Sinhala Communication Ability: Effective Review of Systems All systems reviewed & are unremarkable except as noted in HPI & below Physical Exam 2 Vital Signs (Past 24 Hours): Last Vital Signs Temp 36.7 C 07/02/18 12:18 Pulse 86 07/02/18 13:36 Resp 16 07/02/18 13:36 BP 152/95 H 07/02/18 13:36 Pulse Ox 99 07/02/18 13:36 Physical Exam: General: chronically ill appearing, thin, no acute distress at this time Head: normocephalic, atraumatic Eyes: PERRL, EOM's intact, conjunctiva non-injected, anicteric ENT: normal inspection external ears, nose, mucous membranes mildly dry Neck: supple, trachea midline, non-tender Lungs: clear, no respiratory distress, no wheezing/rhonchi/rales CV: RRR, systolic murmur, no pretibial edema Abd: normal BS, soft, guarding, tender to palpation mid abdomen with mild tenderness to palpation lower abdomen Back: no spinous process tenderness to palpation, +tenderness to palpation left lower thoracic to left lumbar region. no rashes or discolorations noted. negative leg raising. sensation to light touch lower extremities intact Ext: no cyanosis, no calf tenderness Neuro: A&O x 3, +aphasia, RUE weakness (present since stroke), normal affect Skin: warm, dry Results & Data Laboratory Results Short CBC 07/02/18 Range/Units 13:05 WBC 7.41 (4.8-10.8) K/uL Hgb 9.8 L (14.0-18.0) g/dL Hct 28.1 L (42-52) % Plt Count 147 (130-400) K/uL BMP 07/02/18 13:05 Sodium 136 Potassium 3.3 L Chloride 111 H Carbon Dioxide 18 L BUN 27 H Creatinine 0.86 Glucose 129 H Calcium 8.3 L Cardiac Enzymes 07/02/18 Range/Units 13:05 Troponin I 0.059 H* (0-0.045) ng/ml Liver Function 07/02/18 Range/Units 13:05 Total Bilirubin 0.2 (0.2-1) mg/dl Direct Bilirubin 0.1 (0-0.2) mg/dl AST 23 (15-37) U/L ALT 38 (12-78) U/L Alkaline Phosphatase 337 H (45-117) U/L Albumin 2.8 L (3.4-5.0) gm/dl Urine 07/02/18 Range/Units 14:35 Urine Color Yellow Urine Appearance Clear (Clear) Urine pH 5.0 (4.5-7.5) Ur Specific [place] 1.017 (1.000-1.030) Urine Protein Trace H (Negative) Urine Glucose (UA) Negative (Negative) Diagnostic Findings CT ABD/PELVIS: IMPRESSION: 1. Bilateral nephrolithiasis 2. No ureteral calculi identified 3. No evidence of bowel obstruction. No evidence of free air 4. Marked prostamegaly 5. Cholelithiasis Skeletal structures: No destructive osseous lesions are seen. CXR: IMPRESSION: Chronic change. No acute process. Supervising Physician Co-Signing Physician Notes I have seen and examined the patient and have discussed the case with the provider above. I agree with the assessment and plan as stated with the following exceptions. Mr. Brady is a 72 year old male with a history of stem cell transplant in September 2016 due to acute myelocytic leukemia. He has a history of bioprosthetic aortic valve replacement performed at [facility] in 2012 for severe symptomatic calcific aortic valve stenosis. He was admitted to [facility] 04/05-04/23 after suffering a stroke which left him with significant deficits including aphasia and right-sided weakness. 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 A TTE revealed a possible prosthetic valve vegetation but the KRYSTAL did not see this; the stroke was considered embolic 2/2 valve vegetation. He had previously been diagnosed with c diff in Mar 2018 and was on vancomycin for approximately 6 weeks. He went to rehab at [facility] and, per family, is ambulating well at this time with improved functional status overall. He has had elevated LFTs which have normalized with a persistent elevation in alk phos, and has been seen in the Hepatology dept in [place] with upcoming MRCP planned for 07/05. 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 He has since been taken off sirolimus 2/2 poor tolerance of it and then was put on steroids which were subsequently tapered and stopped around Mar 2018 per family. He does remain on fluconazole and acyclovir, which were started for prophylaxis. He underwent an outpatient CT a/p with PO and IV contrast on revealing thickening of the small bowel in the left mid abdomen, concerning for enteritis. He subsequently underwent an upper and lower endoscopy on 06/06 revealing a normal esophagus, small hiatal hernia, mild non-bleeding erosive gastropathy surrounding his PEG tube which was removed at that time. Duodenum appeared normal and was biopsied. Colonoscopy revealed diverticulosis, internal and external hemorrhoids. Random biopsies were taken in the colon. Path revealed benign mucosa. He presents again now with persistent but worse LUQ /epigastric pain and now with new L lumbar and lower thoracic pain that began overnight. He denies any fevers, chills but has persistent diarrhea recently checked for c-diff and negative as outpatient. His family is concerned that his abdominal pain may be exacerbated by the acyclovir and fluconazole that he continues to take. As he is not on immunosuppressant therapy at this time, I have discussed discontinuation of these meds with his Oncologist, Dr. Wyatt Munson ([facility]) who is fine with that for now. Dr. Munson would like him to have a push enterescopy to examine the area of the small bowel not seen on recent endoscopy; GVHD may still be on the differential. We repeated CT a/p adding IV contrast today which revealed evidence of soft tissue enhancement at the L5-S1 level concerning for possible discitis vs epidural abscess/phlegmon. The patient was not ill-appearing and was without a leukocytosis, fevers or chills. However, in the setting of recent bacteremia and other issues above empiric vancomycin and cefepime were started and blood cultures were drawn. MR lumbar spine was ordered. Scheduled Tylenol and Tramadol was ordered for his pain along with ice to the back area. Abdominal pain may now be related to referred pain from back. Further investigation is pending. DO Kenn _ (1) Acute back pain Back pain laterality: left Back pain location: back pain in unspecified location Sciatica laterality: Sciatica presence: Qualified Code(s): M54.9 - Dorsalgia, unspecified
[2018-07-02] MEDS ORDERED: INSULIN ASPART 100 UNITS/ML 3 ML PEN SC SCH (17:36)
[2018-07-02] MEDS ORDERED: MoRPHine SULFATE 4 MG/ML 1 ML CARP\\VIAL IV PRN (17:36)
[2018-07-02] MEDS ORDERED: GLUCOSE 10 TABS/TUBE PO PRN (17:36)
[2018-07-02] MEDS ORDERED: SIMETHICONE 80 MG CHEW PO PRN (17:36)
[2018-07-02] MEDS ORDERED: GLUCAGON FOR INJ 1 MG VIAL SQ PRN (17:36)
[2018-07-02] MEDS ORDERED: POTASSIUM CHLORIDE 20 MEQ TABCR PO ONE (17:36)
[2018-07-02] MEDS ORDERED: DEXTROSE 50% 50 ML SYRINGE IV PRN (17:36)
[2018-07-02] MEDS ORDERED: GLUCOSE 40% GEL 15 GM TUBE PO PRN (17:36)
[2018-07-02] MEDS ORDERED: SODIUM CHLORIDE 0.9% 1000ML 1,000 ML IV SCH (17:36)
[2018-07-02] MEDS ORDERED: CARBOHYDRATES FOR HYPOGLYCEMIA PO PRN (17:36)
[2018-07-02] MEDS ORDERED: ACETAMINOPHEN 325 MG TAB ONE (17:54)
[2018-07-02] MEDS ORDERED: TRAMADOL HCL 50 MG TABLET ONE (17:54)
[2018-07-02] MEDS: TRAMADOL HCL 50 MG TABLET PO SCH (18:29)
[2018-07-02] MEDS ORDERED: IOVERSOL 100ml IV PRN (18:33)
--- NOTE | 2018-07-02 19:03 | CT Scan Report ---
CT OF THE ABDOMEN AND PELVIS WITH CONTRAST CLINICAL HISTORY: Abdominal pain. COMPARISON STUDY: CT of the abdomen and pelvis July 02, 2018 and April 04, 2018. TECHNIQUE: Following IV administration of 94 mL of Optiray-320, axial images of the abdomen and pelvi s were obtained from the lung bases to the proximal femurs. Images were reviewed in the axial, sagitt al, and coronal planes. IV contrast was administered without complication. Automated exposure contro l was utilized for the study. A dose lowering technique was utilized adhering to the principles of A FOREIGN. CT DOSE: 272.01 mGy.cm FINDINGS: Subcentimeter hepatic lesions likely reflect cysts. There is no biliary or pancreatic ducta l dilatation. Several gallstones within the gallbladder are noted without evidence for acute cholecys titis. The spleen, adrenal glands and pancreas are unremarkable. There is moderate scarring within th e midpole the left kidney. There are bilateral renal calculi that measure up to 4 mm. There are no ur eteral calculi and there is no hydronephrosis or hydroureter. Mild bladder wall thickening is noted. The prostate is markedly enlarged. No pneumatosis, free air or portal venous gas is present. There is sigmoid diverticulosis without evidence for acute diverticulitis. Major vasculature is patent. There is mild anasarca. Note is made of prominent paravertebral/epidural soft tissue thickening/enhancemen t at the L5-S1 level. This is suboptimal assessed by CT. There is mild disc space narrowing at L5-S1. No clear bony destruction at this level is noted. There is no evidence for a bowel obstruction. IMPRESSION: 1. Prominent paravertebral/epidural enhancing soft tissue at the L5-S1 level. Although this could be due to degenerative disc disease, the findings raise the possibility of an infectious process with di scitis and possible epidural phlegmon/abscess which is suboptimally assessed by CT. An MRI of the lum bar spine with and without contrast is recommended. Discussed with Dr. Meyer at time of dictation. 2. Bilateral nephrolithiasis. No ureteral calculi. 3. Cholelithiasis. No evidence for acute cholecystitis. 4. No bowel obstruction. 5. Marked enlargement of the prostate. Mild bladder wall thickening which is likely chronic but could be correlated with urinalysis. Electronically signed by: Pk Lopez M.D. 07/02/2018 7:01 PM
[2018-07-02] MEDS: INSULIN HUMAN LISPRO (humaLOG) 100 UNITS/ML VIAL SQ SCH (19:07)
[2018-07-02] MEDS ORDERED: INSULIN GLARGINE SOLOSTAR 100 UNITS/ML 3 ML PEN SC SCH (21:00)
[2018-07-02] MEDS ORDERED: GABAPENTIN 100 MG CAP PO SCH (21:00)
[2018-07-02] MEDS ORDERED: ACYCLOVIR 400 MG TAB PO SCH (21:00)
[2018-07-02] MEDS: METOPROLOL SUCC 25MG EXT REL TAB PO SCH (21:18)
[2018-07-02] MEDS: HEPARIN SOD 5,000 UNIT/0.5 ML VIAL SQ SCH (21:21)
[2018-07-02] MEDS ORDERED: Nursing to Pharmacy Communication ONE (21:32)
[2018-07-02] MEDS ORDERED: INSULIN HUMAN LISPRO (humaLOG) 100 UNITS/ML VIAL SQ SCH (22:00)
[2018-07-02] MEDS ORDERED: VANCOMYCIN CONSULT ACTIVE PRN (22:58)
--- NOTE | 2018-07-02 23:03 | Pharmacy Report ---
Pharmacy Abx Initial Consult - Date of Service July 02, 2018 - Pharmacy Dosing Scope Date of Consult: 07/02/18 Consultation requested by: Dr. Hawk Pharmacy is consulted to initiate vancomycin IV dosing therapy, order appropriate labs and adjust drug dose/frequency. - Subjective The patient is a 73 year old M admitted on 07/02/18 15:38 with increasing abdominal and back pain. - Objective Height: 5 ft 4 in Weight: 49.9 kg Vital Signs (Past 12hrs): Vital Signs Temp Pulse Pulse Resp BP BP Pulse Ox 07/02/18 19:49 36.3 C L 104 H 20 119/81 100 07/02/18 17:08 36.6 C 85 20 158/96 H 100 07/02/18 16:39 93 H 17 139/89 98 07/02/18 16:20 75 14 99 07/02/18 16:10 67 15 98 07/02/18 16:01 69 17 133/88 99 07/02/18 16:00 77 10 L 92 07/02/18 15:50 70 15 98 07/02/18 15:40 68 14 98 07/02/18 15:30 73 17 123/80 99 07/02/18 15:20 71 15 99 07/02/18 15:10 77 20 100 07/02/18 15:00 73 16 137/87 100 07/02/18 14:50 69 17 100 07/02/18 14:40 77 19 97 07/02/18 14:31 86 20 166/118 H 100 07/02/18 14:30 74 19 100 07/02/18 14:20 72 14 100 07/02/18 14:10 79 17 100 07/02/18 14:00 70 16 152/91 H 100 07/02/18 13:36 86 16 152/95 H 99 07/02/18 13:14 96 07/02/18 12:28 83 22 97 07/02/18 12:18 36.7 C 97 H 20 112/76 100 Lab Results (24hrs): Laboratory Tests (24 Hours) 07/02/18 07/02/18 13:05 13:05 WBC 7.41 Neut # (Auto) 3.81 Creatinine 0.86 Est Cr Clr Drug Dosing Not Reportable - Risk Factors for Resistance * immunosuppression - AML s/p bone marrow suppression - Assessment & Plan Assessment 73 year old M with a PMH of AML s/p bone marrow transplant in 2017 and recent hospitalization who presents with worsening abdominal and back pain. Abdominal/ chest CT concerning for possible discitis. Plan vancomycin for treatment of discitis Vancomycin IV * Estimated PK Parameters: Vd 0.7 L/kg, Jonah 0.05 hr-1, t1/2 13.86 hr * Loading dose: 1250 mg (25 mg/kg) * Maintenance dose: 750 mg IV (15 mg/kg) every 12 hours (more aggressive dosing interval used due to concern for rapid elimination in underweight patient.) * Goal trough level for discitis : 15 to 20 mcg/mL * Trough ordered for 07/02/18 * Pharmacy will continue to follow and will adjust dose/frequency as necessary. Thank you.
[2018-07-02] MEDS ORDERED: VANCOMYCIN HCL 1,250 MG in SODIUM CHLORIDE 0.9% 250 ML IV ONE (23:15)
[2018-07-02] MEDS: ACETAMINOPHEN 325 MG TAB PO SCH (23:27)
[2018-07-02] MEDS: CEFEPIME 2,000 MG in SYRINGE 7.5 ML IV SCH (23:48)
[2018-07-03] MEDS ORDERED: HEPARIN 100 UNIT/ML 5ML FLUSH FLUSH PRN (01:47)
[2018-07-03] MEDS ORDERED: GADOBUTROL 65ML VIAL IV PRN (02:22)
[2018-07-03] MEDS: TRAMADOL HCL 50 MG TABLET PO SCH ×2 (02:45→09:19)
[2018-07-03] MEDS: ACETAMINOPHEN 325 MG TAB PO SCH (05:42)
[2018-07-03] MEDS: HEPARIN SOD 5,000 UNIT/0.5 ML VIAL SQ SCH (05:45)
[2018-07-03 06:16] LABS: Basophils # (auto) 0.01 K/uL (0-0.2); Basophils % (auto) 0.2 %; Eosinophils # (auto) 0.18 K/uL (0-0.5); Eosinophils % (auto) 3.1 %; Hematocrit (blood only) 26.6 % (42-52); Hemoglobin 9.2 g/dL (14.0-18.0); Immature Granulocytes # (auto) 0.04 K/uL (0.00-0.02); Immature Granulocytes % (auto) 0.7 %; Lymphocytes # (auto) 1.81 K/uL (1.2-3.4); Lymphocytes % (auto) 31.4 %; Mean Corpuscular Hgb Conc 34.6 g/dL (32-36); Mean Platelet Volume 8.8 fL (7.4-10.4); Monocytes % (auto) 10.4 %; Neutrophils # (auto) 3.13 K/uL (1.4-6.5); Neutrophils % (auto) 54.2 %; Platelet Count 139 K/uL (130-400); RDW Coefficient of Variation 15.2 % (11.5-14.5); Red Blood Count 2.86 M/uL (4.7-6.1); White Blood Count 5.77 K/uL (4.8-10.8)
[2018-07-03] MEDS ORDERED: LEVOTHYROXINE SODIUM 150 MCG TABLET PO SCH (06:30)
[2018-07-03 06:57] LABS: Alanine Aminotransferase 30 U/L (12-78); Albumin Level 2.6 gm/dl (3.4-5.0); Aspartate Aminotransferase 19 U/L (15-37); Bilirubin Direct < 0.1 mg/dl (0-0.2); Blood Urea Nitrogen 18 mg/dl (7-18); Calcium 7.9 mg/dl (8.5-10.1); Carbon Dioxide 16 mmol/L (21-32); Chloride 116 mmol/L (98-107); Creatinine Clr Calc Pharmacy 60.8 ml/min; Est GFR (African American) 104.7; Est GFR (Non-African American) 90.3; Glucose 65 mg/dl (70-99); Potassium 3.4 mmol/L (3.5-5.1); Sodium 138 mmol/L (136-145)
[2018-07-03 06:59] LABS: Albumin Globulin Ratio 0.8 (0.9-2); Alkaline Phosphatase 306 U/L (45-117); Bilirubin,Total 0.3 mg/dl (0.2-1); C Reactive Protein 6.41 mg/dl (0-0.29); Globulin 3.4 gm/dl (2.5-4.0)
--- NOTE | 2018-07-03 07:46 | Magnetic Resonance Report ---
MR lumbar spine wo/w con CLINICAL HISTORY: 73 years-old Male presenting with ? discitis, +back pain, +chronic abd pain, multip le months of pain including right leg pain. TECHNIQUE: Multisequence, multiplanar MR imaging of the lumbar spine was performed before and after t he administration of intravenous contrast. IV contrast: 5 mL of Gadavist. COMPARISON: Correlation made to CT of abdomen and pelvis from 07/02/2018. FINDINGS: Localizer images: Prostatomegaly. Straightening of normal lumbar lordosis likely due to was imaging and mild degenerative change. Exten sive heterogeneity of bone marrow. There is prominent T2 hyperintense, T1 hypointense abnormal bone marrow signal in L5 and S1 centered at the L5-S1 disc space. The L5-S1 disc contains abnormal fluid with a bulging anterior and posterior contour. Destruction of the annulus fibrosis posteriorly with abnormal enhancing soft tissue in the epidural space. This effaces the ventral thecal sac and most prominently the right lateral recess. Ma ss effect on the transiting right S1 nerve root and abutment of the transiting left S1 nerve root. Mi ld adjacent paraspinal edema most prominently on the right at the level of L4. Apart from the L5-S1 level, intervertebral discs demonstrate mild desiccation and height loss at L4-5 . Remaining intervertebral discs preserved. No spinal canal or neural foraminal narrowing evident at L1-2 through L3-4. Mild disc bulge at L4-5 results in mild effacement of the ventral thecal sac and m ass effect on the exiting right L4 nerve root. Moderate right and minimal left neural foraminal narro wing as result of eccentricity of the disc bulge. No significant neural foraminal narrowing at L5-S1. Spinal cord terminates in good position above the level of L1. Cauda equina normal morphology. No abn ormal enhancement of the cauda equina. Remaining visualized soft tissues are unremarkable. Preservati on of T2 flow voids in the vasculature. IMPRESSION: 1. 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 Epidural phlegmon along the ventr al spinal canal resulting in mass effect on the transiting right S1 nerve root and abutment of the tr ansiting left S1 nerve root. No jeanmarie abscess at this time. 2. Degenerative changes primarily at L4-5 with mass effect on the exiting right L4 nerve root. The report will be called/faxed according to standard departmental protocol. Electronically signed by: Indra Colon M.D. 07/03/2018 7:45 AM
--- NOTE | 2018-07-03 08:55 | Cardiology Consultation ---
Date of Consultation July 03, 2018 Assessment & Plan (1) Elevated troponin: Troponins do not reflect acute myocardial ischemia and likely reflect demand issues in association acute pain and illness. Would continue usual cardiac medications. As noted below, given history of past streptococcal sepsis and bioprosthesis in place agree with sepsis workup MRI of low back pending. Echocardiogram be ordered to reassess valvular structures with AVR in place (2) Aortic valve replaced: Echocardiogram initially ordered, blood cultures already performed (3) Streptococcal sepsis: April 2018, patient completed 6-week course of antibiotic therapy. Blood cultures repeated on admission MRI low back pending Echocardiogram initially ordered History of Present Illness Reason for Consultation: Elevated troponin Requesting Physician: Seth Meyer MD Attending Physician: Seth Meyer MD History of Present Illness Patient is a 73-year-old male with very complex past medical history which includes 1. Status post aortic valve replacement via minimally invasive approach bioprosthesis 2012 2. Minimal coronary atherosclerosis by preoperative cardiac catheterization 3. 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 Blood cultures grew Streptococcus and patient was treated with 6 weeks of IV antibiotics. KRYSTAL negative for vegetation 5. Left-sided stroke May 2018 as complication of above 6. History of C. difficile colitis, chronic hepatic enzyme elevation 7. Steroid-induced hyperglycemia Patient presents this admission having developed worsening abdominal pain several weeks duration radiating to low back. Patient notes pain became unrelenting and he presented to the emergency room for further evaluation. He denied any cardiac complaints chest pains tachypalpitations dizziness lightest syncope near syncope. Chronic diarrhea has been an issue though is generally been improving noted no overt melena hematochezia dysuria hematuria. Denies fevers chills or sweats. Denies headache or visual changes has chronically slurred speech with mild dysarthria in association of prior stroke of late last year. Laboratory studies on presentation are notable for mildly elevated troponin with flat pattern. EKGs reveal no abnormalities Allergies Allergy/AdvReac Type Severity Reaction Status Date / Time No Known Allergies Allergy Unverified 06/04/18 06:13 Home Medications Home Medications Medication Instructions Recorded Confirmed Type levothyroxine 150 mcg PO DAILY 04/04/18 07/02/18 History acyclovir 400 mg PO BID 06/04/18 07/02/18 History fluconazole 400 mg PO DAILY 06/04/18 07/02/18 History insulin glargine 8 unit SUBCUT HS 06/04/18 07/02/18 History insulin lispro [Humalog KwikPen See Label Instructions .ROUTE 06/04/18 07/02/18 History Insulin] .COMPLEX metoprolol succinate 12.5 mg PO BID 06/04/18 07/02/18 History Probiotic 1 cap PO DAILY 07/02/18 07/02/18 History acetaminophen [Tylenol] 325 mg PO Q6H PRN 07/02/18 07/02/18 History simethicone 125 mg PO Q6H PRN 07/02/18 07/02/18 History sucralfate [Carafate] 1 g PO QID 07/02/18 07/02/18 History Patient History Medical History Chronic kidney disease (Chronic) Parotid tumor (Resolved) 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) HTN (hypertension) (Chronic) Hypothyroidism (Chronic) 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 Surgical History Aortic valve replaced (Chronic) H/o aortic stenosis s/p prosthetic valve replacement in 2012 H/O stem cell transplant (Chronic) [facility], September 2016 Family History Other CAD (coronary artery disease) Stroke Thyroid disorder Social History Current Living Situation: Spouse Feels Safe at Home: Yes Safety Concerns: Feels Safe At This Time Smoking Status: Never smoker Second Hand Exposure: No Hx Alcohol Use: No Hx Substance Use: No Beliefs That Will Affect Care: None Preferred Language: Montene[place] Communication Ability: Effective Review of Systems As per HPI Physical Exam 2 Vital Signs (Past 24 Hours): Last Vital Signs Temp 36.5 C 07/03/18 07:14 Pulse 87 07/03/18 07:14 Resp 18 07/03/18 07:14 BP 125/82 07/03/18 07:14 Pulse Ox 99 07/03/18 07:14 Constitutional: + ill appearing and + thin; not in distress ENMT: external ear and nose normal, oropharynx normal Neck: Neck is thin, no jugular venous distention or carotid bruit Respiratory: normal respiratory effort, lungs clear to auscultation Cardiovascular: Rate/Rhythm: regular rate and regular rhythm Heart Sounds: + murmur; no gallop Vessels: no carotid bruit and no femoral bruit Extremities: + vascular access device (Present in left upper chest); no pedal edema Chest (Breasts): Additional Comments: IV access port in left chest without surrounding erythema Gastrointestinal (Abdomen): Percussion/Palpation: + abdomen tender (Mild diffuse tenderness) and abdomen soft; no hepatosplenomegaly Neurologic: Mild dysarthria patient oriented answering questions appropriately Results & Data Laboratory Results Laboratory Results - last 24 hr 07/02/18 07/02/18 07/02/18 13:05 13:05 13:05 WBC 7.41 RBC 3.04 L Hgb 9.8 L Hct 28.1 L MCV 92.4 MCH 32.2 MCHC 34.9 RDW Std Deviation 51.2 H RDW Coeff of Paul 15.1 H Plt Count 147 MPV 9.1 Immature Gran % (Auto) 0.9 Neut % (Auto) 51.4 Lymph % (Auto) 33.1 [place] % (Auto) 11.9 Eos % (Auto) 2.4 Baso % (Auto) 0.3 Immature Gran # (Auto) 0.07 H Neut # (Auto) 3.81 Lymph # (Auto) 2.45 [place] # (Auto) 0.88 H Eos # (Auto) 0.18 Baso # (Auto) 0.02 ESR PT 10.8 INR 1.1 Sodium 136 Potassium 3.3 L Chloride 111 H Carbon Dioxide 18 L Anion Gap 7.0 BUN 27 H Creatinine 0.86 Est Cr Clr Drug Dosing Not Reportable Est GFR ( Amer) 101.1 Est GFR (Non-Af Amer) 87.2 BUN/Creatinine Ratio 31.3 H Glucose 129 H POC Glucose Lactate Calcium 8.3 L Phosphorus 2.4 L Magnesium 2.0 Total Bilirubin 0.2 Direct Bilirubin 0.1 AST 23 ALT 38 Alkaline Phosphatase 337 H Troponin I 0.059 H* C-Reactive Protein Total Protein 6.4 Albumin 2.8 L Globulin 3.6 Albumin/Globulin Ratio 0.8 L Lipase 40 L Urine Color Urine Appearance Urine pH Ur Specific [place] Urine Protein Urine Glucose (UA) Urine Ketones Urine Blood Urine Nitrite Urine Bilirubin Urine Urobilinogen Ur Leukocyte Esterase Urine WBC (Auto) Urine RBC (Auto) U Hyaline Cast (Auto) U Epithel Cells (Auto) Urine Bacteria (Auto) 07/02/18 07/02/18 07/02/18 14:35 16:30 17:40 WBC RBC Hgb Hct MCV MCH MCHC RDW Std Deviation RDW Coeff of Paul Plt Count MPV Immature Gran % (Auto) Neut % (Auto) Lymph % (Auto) [place] % (Auto) Eos % (Auto) Baso % (Auto) Immature Gran # (Auto) Neut # (Auto) Lymph # (Auto) [place] # (Auto) Eos # (Auto) Baso # (Auto) ESR PT INR Sodium Potassium Chloride Carbon Dioxide Anion Gap BUN Creatinine Est Cr Clr Drug Dosing Est GFR ( Amer) Est GFR (Non-Af Amer) BUN/Creatinine Ratio Glucose POC Glucose 99 Lactate 0.7 Calcium Phosphorus Magnesium Total Bilirubin Direct Bilirubin AST ALT Alkaline Phosphatase Troponin I C-Reactive Protein Total Protein Albumin Globulin Albumin/Globulin Ratio Lipase Urine Color Yellow Urine Appearance Clear Urine pH 5.0 Ur Specific [place] 1.017 Urine Protein Trace H Urine Glucose (UA) Negative Urine Ketones Negative Urine Blood Negative Urine Nitrite Negative Urine Bilirubin Negative Urine Urobilinogen Negative Ur Leukocyte Esterase Negative Urine WBC (Auto) 1-5 Urine RBC (Auto) 5-10 H U Hyaline Cast (Auto) 5-10 H U Epithel Cells (Auto) 10-20 H Urine Bacteria (Auto) Negative 07/02/18 07/02/18 07/03/18 18:56 20:29 00:52 WBC RBC Hgb Hct MCV MCH MCHC RDW Std Deviation RDW Coeff of Paul Plt Count MPV Immature Gran % (Auto) Neut % (Auto) Lymph % (Auto) [place] % (Auto) Eos % (Auto) Baso % (Auto) Immature Gran # (Auto) Neut # (Auto) Lymph # (Auto) [place] # (Auto) Eos # (Auto) Baso # (Auto) ESR PT INR Sodium Potassium Chloride Carbon Dioxide Anion Gap BUN Creatinine Est Cr Clr Drug Dosing Est GFR ( Amer) Est GFR (Non-Af Amer) BUN/Creatinine Ratio Glucose POC Glucose 135 H Lactate Calcium Phosphorus Magnesium Total Bilirubin Direct Bilirubin AST ALT Alkaline Phosphatase Troponin I 0.049 H* 0.054 H* C-Reactive Protein Total Protein Albumin Globulin Albumin/Globulin Ratio Lipase Urine Color Urine Appearance Urine pH Ur Specific [place] Urine Protein Urine Glucose (UA) Urine Ketones Urine Blood Urine Nitrite Urine Bilirubin Urine Urobilinogen Ur Leukocyte Esterase Urine WBC (Auto) Urine RBC (Auto) U Hyaline Cast (Auto) U Epithel Cells (Auto) Urine Bacteria (Auto) 07/03/18 07/03/18 07/03/18 06:03 06:03 06:03 WBC 5.77 RBC 2.86 L Hgb 9.2 L Hct 26.6 L MCV 93.0 MCH 32.2 MCHC 34.6 RDW Std Deviation 52.0 H RDW Coeff of Paul 15.2 H Plt Count 139 MPV 8.8 Immature Gran % (Auto) 0.7 Neut % (Auto) 54.2 Lymph % (Auto) 31.4 [place] % (Auto) 10.4 Eos % (Auto) 3.1 Baso % (Auto) 0.2 Immature Gran # (Auto) 0.04 H Neut # (Auto) 3.13 Lymph # (Auto) 1.81 [place] # (Auto) 0.60 H Eos # (Auto) 0.18 Baso # (Auto) 0.01 ESR 25 H PT INR Sodium 138 Potassium 3.4 L Chloride 116 H Carbon Dioxide 16 L Anion Gap 6.0 BUN 18 Creatinine 0.79 Est Cr Clr Drug Dosing 60.8 Est GFR ( Amer) 104.7 Est GFR (Non-Af Amer) 90.3 BUN/Creatinine Ratio 23.0 H Glucose 65 L POC Glucose Lactate Calcium 7.9 L Phosphorus Magnesium 2.0 Total Bilirubin 0.3 Direct Bilirubin < 0.1 AST 19 ALT 30 Alkaline Phosphatase 306 H Troponin I C-Reactive Protein 6.41 H Total Protein 6.0 L Albumin 2.6 L Globulin 3.4 Albumin/Globulin Ratio 0.8 L Lipase Urine Color Urine Appearance Urine pH Ur Specific [place] Urine Protein Urine Glucose (UA) Urine Ketones Urine Blood Urine Nitrite Urine Bilirubin Urine Urobilinogen Ur Leukocyte Esterase Urine WBC (Auto) Urine RBC (Auto) U Hyaline Cast (Auto) U Epithel Cells (Auto) Urine Bacteria (Auto) ECG Additional Comments: EKG: Normal sinus rhythm with normal tracing rate [address] segment abnormalities Q waves are evolution and abnormalities
[2018-07-03] MEDS ORDERED: PROBIOTIC PO SCH (09:00)
[2018-07-03] MEDS ORDERED: FLUCONAZOLE 100 MG TAB PO SCH (09:00)
[2018-07-03] MEDS ORDERED: LACTOBACILLUS ACIDOPHILUS (FLORANEX) TAB PO SCH (09:00)
[2018-07-03] MEDS: INSULIN HUMAN LISPRO (humaLOG) 100 UNITS/ML VIAL SQ SCH ×2 (09:18→12:12)
[2018-07-03] MEDS: METOPROLOL SUCC 25MG EXT REL TAB PO SCH (09:21)
[2018-07-03] MEDS ORDERED: VANCOMYCIN HCL 750 MG in SODIUM CHLORIDE 0.9% 250 ML IV SCH (10:00)
--- NOTE | 2018-07-03 10:52 | Hospitalist Progress Note ---
Date of Service July 03, 2018 Assessment & Plan (1) Epidural abscess: Recent bacteremia at OSH with prolonged ampicillin. Multiple recent hospitalizations. Blood cultures pending. Cont Vanc/Cefepime. ID consult. Ortho spine consult. (2) Discitis of lumbosacral region: Vanc/Cefepime pending cultures. Present on Admission?: Yes (3) Abdominal pain: Chronic for the past 7 months. Uncertain etiology, however, CT scan a/p with PO and IV contrast as outpatient revealed some left midabdomen small bowel thickening. He underwent upper and lower endoscopy that were unrevealing for a cause, and currently a push enteroscopy is considered a next step in the workup. He had also seen [facility] regarding elevated LFTs and they were interested in an MRCP. He continues to have chronic diarrhea and has developed a non-anion gap metabolic acidosis likely as a result of chronic bicarbonate loss. Low potassium also likely related to this. No improvement in pain with the scheduled tylenol and tramadol. DC tramadol and use percocet instead prn. Morphine also PRN. (4) Chronic diarrhea: as above. (5) Hypokalemia: replace, repeat BMP periodically. (6) Metabolic acidosis: likely 2/2 chronic diarrhea. Narcotics may stem this somewhat. Cont to monitor. (7) Acute urinary retention: In setting of spinal infection with ? mass effect. Place [place] until definitive care of this issue. Present on Admission?: No (8) Elevated troponin: Cardiology saw patient this am. This is likely related to demand ischemia with active infection as opposed to active ACS. Pt asymptomatic with respect to chest pain or dyspnea. Repeat echo pending. 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 Finished prolonged course of IV ampicillin two months ago. Pt had TTE revealing vegetation on valve, but KRYSTAL did not confirm this. CVA thought to be embolic from this wtih subsequent neuro deficits including aphasia and R sided weakness. (10) AML (acute myeloid leukemia): Hx bone marrow transplant in 09/[address] [facility] now considered to be in second remission, now follows with Dr Munson at [facility]. 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 Fluconazole and Acyclovir were held this admission. (11) Hypothyroidism: TSH: 7.6 on 06/20/18 -continue levothyroxine (12) Anemia of chronic disease: chronic, stable. No acute blood loss noted. (13) Steroid-induced diabetes: A1c: 6.5 on 05/2018 -continue home lantus 8units HS, sliding scale (14) DVT prophylaxis: Lovenox 30mg daily Full code Dispo-telemetry Lisa Hawk DO [facility] Hospitalist Subjective 73 yo M admitted for abdominal pain that is ongoing for past 6 months and now is worse. This has not changed much overnight and has not improved with the Tramadol/Tylenol scheduled. Pt states Tramadol not even touching the pain. Changing to percocet, but apprised nursing that this patient is not inclined to ask for pain meds. Denies nausea but wants to stay on the clear liquid diet at this time. No BM today in setting of chronic diarrhea. Denies fevers or chills overnight. "Sciatica" of right leg is no worse today. Overnight, repeat CT A/P with IV contrast revealed evidence of ?discitis, this was confirmed on MRI L-spine at the L5-S1 level in addition to a new epidural abscess around the R S1 nerve root. Correlates w patient's sciatica down the R leg for the past 2-3 weeks. He was started on Vanc/Cefepime empirically and blood cultures were drawn. Physical Exam 2 Vital Signs (Past 24 Hours): Last Vital Signs Temp 36.5 C 07/03/18 07:14 Pulse 87 07/03/18 07:14 Resp 18 07/03/18 07:14 BP 125/82 07/03/18 07:14 Pulse Ox 99 07/03/18 07:14 CONSTITUTIONAL: WNWD, vitals as above, generally appears stable, but in mild distress 2/2 pain and ill-appearing in general. EYES: normal conjuctivae, no scleral icterus ENT: MMM RESPIRATORY: clear to auscultation bilaterally, no crackles, rales or wheezes, normal respiratory effort CARDIOVASCULAR: regular rate and rhythm, S1 and 2 heard without murmurs, gallops or rubs, no JVD, no peripheral edema CHEST: port on L anterior chest wall accessed. GASTROINTESTINAL: normal bowel sounds, soft but guarding, TTP in LUQ and epigastric region MUSCULOSKELETAL: +paraspinal muscle tenderness to palpation on L lumbar and lower thoracic area. Strength 5/5 throughout, head is normocephalic and atraumatic SKIN: warm and dry NEUROLOGIC: 2+ patellar DTR bilat. Normal cognition, some dysarthria but doesn 't appear to have word-finding issues. PSYCHIATRIC: alert cooperative and oriented to person, place and time. Results & Data Laboratory Results Short CBC 07/02/18 07/03/18 Range/Units 13:05 06:03 WBC 7.41 5.77 (4.8-10.8) K/uL Hgb 9.8 L 9.2 L (14.0-18.0) g/dL Hct 28.1 L 26.6 L (42-52) % Plt Count 147 139 (130-400) K/uL BMP 07/02/18 07/03/18 13:05 06:03 Sodium 136 138 Potassium 3.3 L 3.4 L Chloride 111 H 116 H Carbon Dioxide 18 L 16 L BUN 27 H 18 Creatinine 0.86 0.79 Glucose 129 H 65 L Calcium 8.3 L 7.9 L Cardiac Enzymes 07/02/18 07/02/18 07/03/18 Range/Units 13:05 18:56 00:52 Troponin I 0.059 H* 0.049 H* 0.054 H* (0-0.045) ng/ml Liver Function 07/02/18 07/03/18 Range/Units 13:05 06:03 Total Bilirubin 0.2 0.3 (0.2-1) mg/dl Direct Bilirubin 0.1 < 0.1 (0-0.2) mg/dl AST 23 19 (15-37) U/L ALT 38 30 (12-78) U/L Alkaline Phosphatase 337 H 306 H (45-117) U/L Albumin 2.8 L 2.6 L (3.4-5.0) gm/dl Urine 07/02/18 Range/Units 14:35 Urine Color Yellow Urine Appearance Clear (Clear) Urine pH 5.0 (4.5-7.5) Ur Specific [place] 1.017 (1.000-1.030) Urine Protein Trace H (Negative) Urine Glucose (UA) Negative (Negative) Diagnostic Findings MR Lumbar spine w and wo contrast: IMPRESSION: 1. 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 Epidural phlegmon along the ventral spinal canal resulting in mass effect on the transiting right S1 nerve root and abutment of the transiting left S1 nerve root. No jeanmarie abscess at this time. 2. Degenerative changes primarily at L4-5 with mass effect on the exiting right L4 nerve root. The report will be called/faxed according to standard departmental protocol. CT A/P with IV contrast: 1. Prominent paravertebral/epidural enhancing soft tissue at the L5-S1 level. Although this could be due to degenerative disc disease, the findings raise the possibility of an infectious process with discitis and possible epidural phlegmon/abscess which is suboptimally assessed by CT. An MRI of the lumbar spine with and without contrast is recommended. Discussed with Dr. Meyer at time of dictation. 2. Bilateral nephrolithiasis. No ureteral calculi. 3. Cholelithiasis. No evidence for acute cholecystitis. 4. No bowel obstruction. 5. Marked enlargement of the prostate. Mild bladder wall thickening which is likely chronic but could be correlated with urinalysis. Medications Administered Current Inpatient Medications Acetaminophen (Tylenol) 650 mg PO Q8H PRN PRN Reason: pain or fever Stop: 08/01/18 21:59 Dextrose (Dextrose 50%) 25 - 50 ml IV UD PRN; Protocol PRN Reason: Hypoglycemia Protocol Stop: 08/01/18 17:35 Enoxaparin Sodium (Lovenox) 30 mg SQ Q24H KASSANDRA Stop: 08/02/18 11:59 Gadobutrol (Gadavist 65ml) 5 ml IV ONCE PRN PRN Reason: Interaction Checking Stop: 07/07/18 02:21 Last Admin: 07/03/18 02:10 Dose: 5 ml Glucagon (Glucagen) 1 mg SQ UD PRN; Protocol PRN Reason: Hypoglycemia Protocol Stop: 08/01/18 17:35 Glucose (Glucose 40%) 15 - 30 gm PO UD PRN; Protocol PRN Reason: Hypoglycemia Protocol Stop: 08/01/18 17:35 Glucose (Dex4 Glucose) 4 - 8 tabs PO UD PRN; Protocol PRN Reason: Hypoglycemia Protocol Stop: 08/01/18 17:35 Heparin Sodium (Porcine) (Heparin Sod 100 Unit/Ml Flush) 5 ml FLUSH PRN PRN PRN Reason: Flush Stop: 08/02/18 01:59 Cefepime HCl 2,000 mg/ Syringe 20 mls @ 5.5 mls/min IV Q12H COUNT INCLUDES THE [facility] Stop: 08/13/18 22:59 Last Admin: 07/03/18 11:40 Dose: 5.5 mls/min Vancomycin HCl 750 mg/ Sodium (Chloride) 265 mls @ 125 mls/hr IV Q12H COUNT INCLUDES THE [facility] Stop: 08/14/18 09:59 Last Admin: 07/03/18 09:18 Dose: 125 mls/hr Insulin Glargine (Lantus Solostar Pen) 8 units SC HS COUNT INCLUDES THE [facility] Stop: 08/01/18 20:59 Last Admin: 07/02/18 21:21 Dose: 8 units Insulin Human Lispro (Humalog) 0 units SQ AC COUNT INCLUDES THE [facility] Stop: 08/01/18 18:59 Last Admin: 07/03/18 09:18 Dose: Not Given Ioversol (Optiray 320 100ml) 94 ml IV ONCE PRN PRN Reason: Interaction Checking Stop: 07/06/18 18:32 Last Admin: 07/02/18 18:34 Dose: 1 ml Levothyroxine Sodium (Synthroid) 150 mcg PO DAILYBB COUNT INCLUDES THE [facility] Stop: 08/02/18 06:29 Last Admin: 07/03/18 05:42 Dose: 150 mcg Metoprolol Succinate (Toprol Xl) 12.5 mg PO BID COUNT INCLUDES THE [facility] Stop: 08/01/18 20:59 Last Admin: 07/03/18 09:21 Dose: 12.5 mg Miscellaneous (Carbohydrates For Hypoglycemia) 15 - 30 gm PO UD PRN PRN Reason: Hypoglycemia Treatment Stop: 08/01/18 17:35 Miscellaneous Information (Consult) 1 ea N/A UD PRN PRN Reason: Consult Stop: 08/01/18 22:57 Morphine Sulfate (Morphine Sulfate) 2 mg IV Q4 PRN PRN Reason: Severe Pain Stop: 07/16/18 17:35 Probiotic Cap~Non- Formulary Patient's Own Med 1 ea PO BID@0900,1700 COUNT INCLUDES THE [facility] Stop: 08/02/18 08:59 Last Admin: 07/03/18 09:20 Dose: 1 ea Oxycodone/Acetaminophen (Percocet 5mg/325mg) 1 tab PO Q4H PRN PRN Reason: Severe Pain Stop: 07/17/18 11:30 Potassium Chloride (Klor-Con M20) 40 meq PO ONE ONE Stop: 07/03/18 11:46 Simethicone (Mylicon) 80 mg PO Q6H PRN PRN Reason: Gastrointestinal Spasms Or Motor Vehicle Compliance Analyst Stop: 08/01/18 17:35 Last Admin: 07/02/18 20:01 Dose: 80 mg
[2018-07-03] MEDS ORDERED: OXYCODONE/ACETAMINOPHEN 5mg/325mg TAB PO STA (11:31)
[2018-07-03] MEDS ORDERED: OXYCODONE/ACETAMINOPHEN 5mg/325mg TAB PO PRN (11:31)
[2018-07-03] MEDS ORDERED: ACETAMINOPHEN 325 MG TAB PO PRN (11:31)
[2018-07-03] MEDS: CEFEPIME 2,000 MG in SYRINGE 7.5 ML IV SCH (11:40)
[2018-07-03] MEDS ORDERED: POTASSIUM CHLORIDE 20 MEQ TABCR PO ONE (11:45)
[2018-07-03] MEDS ORDERED: ENOXAPARIN INJ 30 MG/0.3 ML SYR SQ SCH (12:00)
--- NOTE | 2018-07-03 12:10 | Infectious Disease Consult ---
Date of Consultation July 03, 2018 Assessment & Plan (1) Discitis of lumbosacral region: continue abx for now. follow culture, echo. with MRI findings of ? 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 ortho eval pending. History of Present Illness Attending Physician: Seth Meyer MD pt admitted yesterday with increased abd pain and new onset back pain. denies f/ c. states significant pain on my exam today. blood cultures done in Er, pending. placed on emperic cefepime and vanco on admission, tolerating well. Was last seen by ID on 04/05 - hospitalized at that time and found to have GCS sepsis, was placed on IV abx and was transferred to [facility] [place]. 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 Blood cultures here grew lr sensitive GCS on 04/04, 04/05 cultures negative and final. unclear if additional cultures at [facility]. Was treated with prolonged course of IV ampicllin, until mid Decemeber. no surgery done. tolerated well. had episode of suspected non cardiac cp in late May, TTE negative for veg. 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 currently on prophylaxis with acyclovir and fluconazole. afebrile since admission, ct a/p in ER negative but concerning for soft tissue collection at L5/S1 - MRI done showing discitis at L5 /S1 and collection causing compression of S1 nerve root. no definite abscess noted. blood cultures currently pending. wbc 5.7, inflammatory markers elevated , crp 6.4, ESR 25.UA negative. recentl outpatient c diff negative. Echo pending. states he has not been eating well at home but denies n/v/d, was to have GI workup due to increased LFTs but not yet done. no cp, sob, cough. port in place left chest wall, no pain, denies drainage, states has been working well. has been in place for years per patient. no gu symptoms. Allergies Allergy/AdvReac Type Severity Reaction Status Date / Time No Known Allergies Allergy Unverified 06/04/18 06:13 Home Medications Home Medications Medication Instructions Recorded Confirmed Type levothyroxine 150 mcg PO DAILY 04/04/18 07/02/18 History acyclovir 400 mg PO BID 06/04/18 07/02/18 History fluconazole 400 mg PO DAILY 06/04/18 07/02/18 History insulin glargine 8 unit SUBCUT HS 06/04/18 07/02/18 History insulin lispro [Humalog KwikPen See Label Instructions .ROUTE 06/04/18 07/02/18 History Insulin] .COMPLEX metoprolol succinate 12.5 mg PO BID 06/04/18 07/02/18 History Probiotic 1 cap PO DAILY 07/02/18 07/02/18 History acetaminophen [Tylenol] 325 mg PO Q6H PRN 07/02/18 07/02/18 History simethicone 125 mg PO Q6H PRN 07/02/18 07/02/18 History sucralfate [Carafate] 1 g PO QID 07/02/18 07/02/18 History Patient History Medical History Chronic kidney disease (Chronic) Parotid tumor (Resolved) 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, September 2016 Family History Other CAD (coronary artery disease) Stroke Thyroid disorder Social History Current Living Situation: Spouse Feels Safe at Home: Yes Safety Concerns: Feels Safe At This Time Smoking Status: Never smoker Second Hand Exposure: No Hx Alcohol Use: No Hx Substance Use: No Beliefs That Will Affect Care: None Communication Ability: Effective Review of Systems all remaining ros reviewed and are negative Physical Exam 2 Vital Signs (Past 24 Hours): Last Vital Signs Temp 36.4 C L 07/03/18 11:49 Pulse 84 07/03/18 11:49 Resp 20 07/03/18 11:49 BP 171/118 H 07/03/18 11:49 Pulse Ox 100 07/03/18 11:49 Constitutional: WD/WN, vitals as above + thin, + cachectic and + lethargic Eyes: PERRL, conjunctivae normal, anicteric sclerae ENMT: external ear and nose normal, oropharynx normal Mouth: + dry oral mucous membranes Neck: normal visual inspection Respiratory: normal respiratory effort, lungs clear to auscultation Auscultation: + diminished lung sounds Cardiovascular: Rate/Rhythm: regular rate and regular rhythm Heart Sounds: + murmur Gastrointestinal (Abdomen): normal bowel sounds, soft, nontender, no hepatosplenomegaly Musculoskeletal: no cyanosis or clubbing, extremities motor strength 5/5 Skin: no rashes, warm and dry Psychiatric: A+Ox3, euthymic affect
[2018-07-03] MEDS ORDERED: LIDOCAINE 2% JELLY 5 ML TUBE ONE (12:47)
[2018-07-03] MEDS ORDERED: NURSING DECISION MEDICATION ONE (12:56)
--- NOTE | 2018-07-03 15:37 | Communication Note ---
Date of Service: July 03, 2018 HOSPITAL COURSE: Current Inpatient Medications Acetaminophen (Tylenol) 650 mg PO Q8H PRN PRN Reason: pain or fever Stop: 08/01/18 21:59 Dextrose (Dextrose 50%) 25 - 50 ml IV UD PRN; Protocol PRN Reason: Hypoglycemia Protocol Stop: 08/01/18 17:35 Enoxaparin Sodium (Lovenox) 30 mg SQ Q24H KASSANDRA Stop: 08/02/18 11:59 Last Admin: 07/03/18 12:11 Dose: 30 mg Gadobutrol (Gadavist 65ml) 5 ml IV ONCE PRN PRN Reason: Interaction Checking Stop: 07/07/18 02:21 Last Admin: 07/03/18 02:10 Dose: 5 ml Glucagon (Glucagen) 1 mg SQ UD PRN; Protocol PRN Reason: Hypoglycemia Protocol Stop: 08/01/18 17:35 Glucose (Glucose 40%) 15 - 30 gm PO UD PRN; Protocol PRN Reason: Hypoglycemia Protocol Stop: 08/01/18 17:35 Glucose (Dex4 Glucose) 4 - 8 tabs PO UD PRN; Protocol PRN Reason: Hypoglycemia Protocol Stop: 08/01/18 17:35 Heparin Sodium (Porcine) (Heparin Sod 100 Unit/Ml Flush) 5 ml FLUSH PRN PRN PRN Reason: Flush Stop: 08/02/18 01:59 Cefepime HCl 2,000 mg/ Syringe 20 mls @ 5.5 mls/min IV Q12H KASSANDRA Stop: 08/13/18 22:59 Last Admin: 07/03/18 11:40 Dose: 5.5 mls/min Vancomycin HCl 750 mg/ Sodium (Chloride) 265 mls @ 125 mls/hr IV Q12H KASSANDRA Stop: 08/14/18 09:59 Last Infusion: 07/03/18 11:26 Dose: Infused Insulin Glargine (Lantus Solostar Pen) 4 units SC HS [facility] Stop: 08/02/18 20:59 Ioversol (Optiray 320 100ml) 94 ml IV ONCE PRN PRN Reason: Interaction Checking Stop: 07/06/18 18:32 Last Admin: 07/02/18 18:34 Dose: 1 ml Levothyroxine Sodium (Synthroid) 150 mcg PO DAILYBB KASSANDRA Stop: 08/02/18 06:29 Last Admin: 07/03/18 05:42 Dose: 150 mcg Metoprolol Succinate (Toprol Xl) 12.5 mg PO BID [facility] Stop: 08/01/18 20:59 Last Admin: 07/03/18 09:21 Dose: 12.5 mg Miscellaneous (Carbohydrates For Hypoglycemia) 15 - 30 gm PO UD PRN PRN Reason: Hypoglycemia Treatment Stop: 08/01/18 17:35 Miscellaneous Information (Consult) 1 ea N/A UD PRN PRN Reason: Consult Stop: 08/01/18 22:57 Morphine Sulfate (Morphine Sulfate) 2 mg IV Q4 PRN PRN Reason: Severe Pain Stop: 07/16/18 17:35 Probiotic Cap~Non- Formulary Patient's Own Med 1 ea PO BID@0900,1700 [facility] Stop: 08/02/18 08:59 Last Admin: 07/03/18 09:20 Dose: 1 ea Oxycodone/Acetaminophen (Percocet 5mg/325mg) 1 tab PO Q4H PRN PRN Reason: Severe Pain Stop: 07/17/18 11:30 Simethicone (Mylicon) 80 mg PO Q6H PRN PRN Reason: Gastrointestinal Spasms Or Quality Control Associate Stop: 08/01/18 17:35 Last Admin: 07/02/18 20:01 Dose: 80 mg 73-year-old man presented with worsening abdominal pain, present for the last 6 months. He has a complex history of AML status post bone marrow transplant in September 2016 and was being worked up for [id number] disease last summer. For a time he was placed on immune suppressant therapy with sirolimus, but he was intolerant of this and was transitioned to prednisone. He was also placed on acyclovir and Diflucan empirically. After this time he had multiple complications including infective endocarditis with an embolic stroke and resulting difficulty speaking and expressing himself as well as right-sided weakness. He also had a PEG tube which has since been removed Jun 2018 as he is tolerating PO. He also had bacteremia and was on IV antibiotics for 6 weeks and C. difficile colitis and was on vancomycin for 6 weeks. He reported persistent abdominal pain and subsequently had a CT abd/pel with PO and IV contrast on 05/23/18 which revealed an area of small bowel thickening in the mid left abdomen. This is consistent with the area of abdominal pain currently that is worse. A repeat CT abdomen pelvis with IV contrast was performed here on admission and revealed no small bowel thickening, however, evidence of possible discitis was present in the lumbar spine. He incidentally had reported some back pain that have been present for approximately 48 hours prior to arrival. He also had right "sciatica" for the past 2-3 weeks. Further imaging was performed with MRI of the lumbar spine overnight revealing evidence of L5-S1 discitis and an epidural phlegmon with mass-effect on the right S1 nerve root. He subsequently developed acute urinary retention and a Osman was placed. He was otherwise neurologically intact. The case was discussed with orthopedics-spine who preferred the patient be treated at a tertiary care center in the setting of multiple comorbidities and high risk of complication with limited resources here. Infectious disease was consulted and recommended to continue empiric therapy which consisted of vancomycin and cefepime with blood cultures pending. Urinalysis was not consistent with infection. He did not have a white count, and a CRP of 6 on lab work. Otherwise he had chronic anemia that was at baseline. After a recent rehab stay in [facility], family reports that he is functioning well and ambulating with minimal assistance. The patient is alert and oriented and very much aware of what is going on. Transfer to [facility] was set up to the special care unit (SCU) on the hospitalist service. His oncologist Dr. Munson was notified of the transfer. Dr. Munson also allowed discontinuation of the empiric fluconazole and acyclovir, which were not considered necessary at this time without immunosuppression, and in the setting of recent elevated LFTs. The plan was discussed with the patient and his at length at the bedside prior to discharge, and all questions were answered. He was reporting control of pain with Percocet, noting that tramadol and Tylenol did nothing for his pain overnight. Physical exam at time of discharge revealed hemodynamically stable and afebrile patient oxygenating well on room air. He was again alert and oriented with a normal heart and lung exam. Abdominal exam revealed significant voluntary guarding and significant tenderness to palpation in the left upper quadrant/epigastric area. The abdomen was soft and nondistended. There was persistent paraspinal tenderness on the lower thoracic and lumbar area. He demonstrated 5 out of 5 strength, normal sensation, 2+ reflexes in his lower extremities. He was transferred to [facility] in guarded condition. DO Kenn
[2018-07-03] MEDS ORDERED: INSULIN GLARGINE SOLOSTAR 100 UNITS/ML 3 ML PEN SC SCH (21:00)
[2018-07-04] MEDS ORDERED: VANCOMYCIN TROUGH ONE (09:30)
--- NOTE | 2018-07-04 14:11 | Discharge Summary ---
Date of Service July 04, 2018 Admission HPI Per Admitting Provider Pt is 73 y/o M with PMH AML s/p bone marrow transplant in 09/2016 at [facility] now considered to be in second remission f/u Dr Munson at [facility], hx of [id number] not on immunosuppressants can tolerate, HTN, HLD, hypothyroidism, chronic right-sided CHF, h/o aortic valve replacement in 2012, steroid-induced DM II, FISH presented to ER with complaint of increased abdominal pain left lower back pain. Patient with history of abdominal pain typically lower abdominal pain, however can be diffuse and has had for several months. Also history of elevated liver functions and has been following with analog circuit designer at [facility]. Is to have MRI liver with and without contrast at [facility] in a couple of days. reports workup thus far has been benign. States last night and today with increased abdominal pain, mostly lower abdominal pain but some mid abdominal pain also. Also developed left sided back pain, seemed mid back and now lower back. Denies pain radiating from back to abdomen. History C. difficile last year. Patient with reported chronic loose stools daily. Had negative c-diff outpatient on 06/29/18. Denies increased diarrhea. Denies nausea, vomiting, fever/chills, hematochezia, melena. In past have tried eliminating milk products without any improvement of symptoms. Last week was started on carafate by PCP without any relief. Takes Tylenol, however that has been decreased to 2G daily secondary to elevated liver functions. Also takes simethicone QID prn, sometimes notices a little relief, no relief at other times. Reports patient with intermittent urinary retention. History of BPH however has tolerated Flomax in the past. Has been taking herbal urinary supplement. Reports last night had some difficulty urinating, however was then able to urinate. Reports urinating today. Denies dysuria, hematuria. Reports history of nephrolithiasis however denies ureteral calculi. Denies fever/chills, diaphoresis, CHRISTIANSON, dizziness, syncope, neck pain, CP, SOB, orthopnea, palpitations, cough, sore throat, choking, otalgia, rhinorrhea, paresthesias, extremity edema, rashes. 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 Had PEG tube which was removed 06/06/18. Patient now tolerating mechanical soft diet and supplementing with clear Ensure 5 times daily. Hospitalization 05/25/18 at [facility] for chest pain. Had negative troponins x3, d- dimer: 960 no DVT on lower extremity venous Doppler, no PE study done secondary to creatinine. Thought chest pain likely musculoskeletal. Hematology has decreased fluconazole dose to 400mg daily and acyclovir to 400mg BID. 06/2018: Endoscopy: Nonbleeding erosive gastropathy surrounding PEG. PEG tube was removed secondary to pain and no longer needing it. Biopsy: Benign small bowel with no specific pathological changes. Colonoscopy: Diverticulosis, external and internal hemorrhoids. Biopsy: Benign colonic mucosa with no specific pathological changes. Ambulates with walker. Denies recent falls. Admission Exam Per Admitting Provider General: chronically ill appearing, thin, no acute distress at this time Head: normocephalic, atraumatic Eyes: PERRL, EOM's intact, conjunctiva non-injected, anicteric ENT: normal inspection external ears, nose, mucous membranes mildly dry Neck: supple, trachea midline, non-tender Lungs: clear, no respiratory distress, no wheezing/rhonchi/rales CV: RRR, systolic murmur, no pretibial edema Abd: normal BS, soft, guarding, tender to palpation mid abdomen with mild tenderness to palpation lower abdomen Back: no spinous process tenderness to palpation, +tenderness to palpation left lower thoracic to left lumbar region. no rashes or discolorations noted. negative leg raising. sensation to light touch lower extremities intact Ext: no cyanosis, no calf tenderness Neuro: A&O x 3, +aphasia, RUE weakness (present since stroke), normal affect Skin: warm, dry Principal Diagnosis Epidural abscess Discitis Abdominal pain Discharge Data Allergies Allergy/AdvReac Type Severity Reaction Status Date / Time No Known Allergies Allergy Unverified 06/04/18 06:13 Consultations 07/02/18 14:08 ED Decision to Admit Stat 07/02/18 17:36 Consult Cardiology Routine Consult Case Management - Discharge Planning Routine 07/03/18 10:57 Consult Infectious Diseases Routine 07/03/18 15:17 Burn CD for patient Stat Ordered Studies 07/02/18 12:40 CT abd pelvis wo con Stat 07/02/18 17:36 CT abd pelvis IV con only Routine 07/03/18 01:42 MR lumbar spine wo/w con Urgent Hospital Course (1) Epidural abscess: (2) Discitis of lumbosacral region: (3) Abdominal pain: (4) Chronic diarrhea: (5) Hypokalemia: (6) Metabolic acidosis: (7) Acute urinary retention: (8) Elevated troponin: (9) S/P aortic valve replacement with bioprosthetic valve: (10) AML (acute myeloid leukemia): (11) Hypothyroidism: (12) Anemia of chronic disease: (13) Steroid-induced diabetes: HOSPITAL COURSE: Current Inpatient Medications Acetaminophen (Tylenol) 650 mg PO Q8H PRN PRN Reason: pain or fever Stop: 08/01/18 21:59 Dextrose (Dextrose 50%) 25 - 50 ml IV UD PRN; Protocol PRN Reason: Hypoglycemia Protocol Stop: 08/01/18 17:35 Enoxaparin Sodium (Lovenox) 30 mg SQ Q24H KASSANDRA Stop: 08/02/18 11:59 Last Admin: 07/03/18 12:11 Dose: 30 mg Gadobutrol (Gadavist 65ml) 5 ml IV ONCE PRN PRN Reason: Interaction Checking Stop: 07/07/18 02:21 Last Admin: 07/03/18 02:10 Dose: 5 ml Glucagon (Glucagen) 1 mg SQ UD PRN; Protocol PRN Reason: Hypoglycemia Protocol Stop: 08/01/18 17:35 Glucose (Glucose 40%) 15 - 30 gm PO UD PRN; Protocol PRN Reason: Hypoglycemia Protocol Stop: 08/01/18 17:35 Glucose (Dex4 Glucose) 4 - 8 tabs PO UD PRN; Protocol PRN Reason: Hypoglycemia Protocol Stop: 08/01/18 17:35 Heparin Sodium (Porcine) (Heparin Sod 100 Unit/Ml Flush) 5 ml FLUSH PRN PRN PRN Reason: Flush Stop: 08/02/18 01:59 Cefepime HCl 2,000 mg/ Syringe 20 mls @ 5.5 mls/min IV Q12H KASSANDRA Stop: 08/13/18 22:59 Last Admin: 07/03/18 11:40 Dose: 5.5 mls/min Vancomycin HCl 750 mg/ Sodium (Chloride) 265 mls @ 125 mls/hr IV Q12H [facility] Stop: 08/14/18 09:59 Last Infusion: 07/03/18 11:26 Dose: Infused Insulin Glargine (Lantus Solostar Pen) 4 units SC HS [facility] Stop: 08/02/18 20:59 Ioversol (Optiray 320 100ml) 94 ml IV ONCE PRN PRN Reason: Interaction Checking Stop: 07/06/18 18:32 Last Admin: 07/02/18 18:34 Dose: 1 ml Levothyroxine Sodium (Synthroid) 150 mcg PO DAILYBB [facility] Stop: 08/02/18 06:29 Last Admin: 07/03/18 05:42 Dose: 150 mcg Metoprolol Succinate (Toprol Xl) 12.5 mg PO BID [facility] Stop: 08/01/18 20:59 Last Admin: 07/03/18 09:21 Dose: 12.5 mg Miscellaneous (Carbohydrates For Hypoglycemia) 15 - 30 gm PO UD PRN PRN Reason: Hypoglycemia Treatment Stop: 08/01/18 17:35 Miscellaneous Information (Consult) 1 ea N/A UD PRN PRN Reason: Consult Stop: 08/01/18 22:57 Morphine Sulfate (Morphine Sulfate) 2 mg IV Q4 PRN PRN Reason: Severe Pain Stop: 07/16/18 17:35 Probiotic Cap~Non- Formulary Patient's Own Med 1 ea PO BID@0900,1700 [facility] Stop: 08/02/18 08:59 Last Admin: 07/03/18 09:20 Dose: 1 ea Oxycodone/Acetaminophen (Percocet 5mg/325mg) 1 tab PO Q4H PRN PRN Reason: Severe Pain Stop: 07/17/18 11:30 Simethicone (Mylicon) 80 mg PO Q6H PRN PRN Reason: 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 He has a complex history of AML status post bone marrow transplant in September 2016 and was being worked up for dqzfd-xurbrp-rczy disease last summer. For a time he was placed on immune suppressant therapy with sirolimus, but he was intolerant of this and was transitioned to prednisone. He was also placed on acyclovir and Diflucan empirically. After this time he had multiple complications including infective endocarditis with an embolic stroke and resulting difficulty speaking and expressing himself as well as right-sided weakness. He also had a PEG tube which has since been removed Jun 2018 as he is tolerating PO. He also had bacteremia and was on IV antibiotics for 6 weeks and C. difficile colitis and was on vancomycin for 6 weeks. He reported persistent abdominal pain and subsequently had a CT abd/pel with PO and IV contrast on 05/23/18 which revealed an area of small bowel thickening in the mid left abdomen. This is consistent with the area of abdominal pain currently that is worse. A repeat CT abdomen pelvis with IV contrast was performed here on admission and revealed no small bowel thickening, however, evidence of possible discitis was present in the lumbar spine. He incidentally had reported some back pain that have been present for approximately 48 hours prior to arrival. He also had right "sciatica" for the past 2-3 weeks. Further imaging was performed with MRI of the lumbar spine overnight revealing evidence of L5-S1 discitis and an epidural phlegmon with mass-effect on the right S1 nerve root. He subsequently developed acute urinary retention and a Osman was placed. He was otherwise neurologically intact. The case was discussed with orthopedics-spine who preferred the patient be treated at a tertiary care center in the setting of multiple comorbidities and high risk of complication with limited resources here. Infectious disease was consulted and recommended to continue empiric therapy which consisted of vancomycin and cefepime with blood cultures pending. Urinalysis was not consistent with infection. He did not have a white count, and a CRP of 6 on lab work. Otherwise he had chronic anemia that was at baseline. After a recent rehab stay in [facility], family reports that he is functioning well and ambulating with minimal assistance. The patient is alert and oriented and very much aware of what is going on. Transfer to [place] was set up to the special care unit (SCU) on the hospitalist service. His oncologist Dr. Munson was notified of the transfer. Dr. Munson also allowed discontinuation of the empiric fluconazole and acyclovir, which were not considered necessary at this time without immunosuppression, and in the setting of recent elevated LFTs. The plan was discussed with the patient and his at length at the bedside prior to discharge, and all questions were answered. He was reporting control of pain with Percocet, noting that tramadol and Tylenol did nothing for his pain overnight. Physical exam at time of discharge revealed hemodynamically stable and afebrile patient oxygenating well on room air. He was again alert and oriented with a normal heart and lung exam. Abdominal exam revealed significant voluntary guarding and significant tenderness to palpation in the left upper quadrant/epigastric area. The abdomen was soft and nondistended. There was persistent paraspinal tenderness on the lower thoracic and lumbar area. He demonstrated 5 out of 5 strength, normal sensation, 2+ reflexes in his lower extremities. He was transferred to [facility] in guarded condition. DO Kenn Total Time Total Time Spent Total Time Spent (In Minutes): 60 Total Time Includes: Examination of the Patient, Discharge Planning, Medication Reconciliation and Communication With Other Providers Discharge Plan Discharge Items Patient Disposition: Transfer Acute Care Hospital Reason For Visit: ABDOMINAL PAIN Discharge Diagnosis: Epidural abscess Discitis Abdominal pain Condition: Fair Discharge Goals: Therapeutic intervention Activity: As commented below Activity Comment: per accepting facility, OOB with assist Non-emergency contact: Primary Care Provider Call non-emergency contact if: you have any medication questions, your symptoms worsen, your pain is not controlled, your pain is worsening, your pain is unusual for you, your pain is concerning for you and you have a fever Follow-up/Referrals: Sonja Peña DO [Primary Care Provider] - Diet: Clear liquid Addtl Provider Instructions: You are being transferred to a tertiary care facility for continued care of your back infection. It is recommended that you follow-up with your primary care physician one week post-discharge from this facility. It was a pleasure taking care of you! Please call if you have any questions or problems. You can reach a [facility] hospitalist on duty at [facility] 24 hours a day by calling [phone]. Take care of yourself. Lisa Hawk DO [facility] Hospitalist Prescriptions: Continue levothyroxine 150 mcg Tablet 150 mcg PO DAILY RF: 0 metoprolol succinate 25 mg tablet extended release 24 hr 12.5 mg PO BID RF: 0 insulin glargine 100 unit/mL (3 mL) insulin pen 8 unit subcut HS RF: 0 insulin lispro [Humalog KwikPen Insulin] 100 unit/mL insulin pen See Label Instructions .ROUTE .COMPLEX RF: 0 sucralfate [Carafate] 1 gram Tablet 1 g PO QID RF: 0 acetaminophen [Tylenol] 325 mg Capsule 325 mg PO Q6H PRN (Reason: Pain) RF: 0 Probiotic 1 cap PO DAILY RF: 0 simethicone 125 mg Tablet 125 mg PO Q6H PRN (Reason: Gastrointestinal Spasms Or Cramping) RF: 0 Discontinued fluconazole 100 mg tablet 400 mg PO DAILY RF: 0 acyclovir 400 mg tablet 400 mg PO BID RF: 0 Stand-Alone Forms: [facility] Discharge Orders: Discharge Order (Routine); Ordered 07/03/18 Ordered By: Lisa Hawk Admission Data Admit Date/Time: 07/02/18 15:38 Attending Provider: Seth Meyer Admit Provider: Lisa Hawk Primary Care Provider: Sonja Peña Other Providers: Hamlet Ibrahim ; Lisa Hawk ; Michelle Arguelles Service: Telemetry Medical Other Interventions: Discharge Summary Assessment (RN) Last Done: 07/03/18 16:22 DC Date/Time DO NOT enter until pt leaves facility: 07/03/18 17:00
== END 2018-07-03 17:00 | disposition short-term general hospital (02) | DRG 95 ==
LOC: ED 12:09 → 2N 15:38

== ENCOUNTER 2019-01-26 20:14 | Inpatient (IN) ==
--- OUTSIDE RECORDS SUMMARY | 2019-01-26 20:16 | External Medical Summary | Continuity of Care Document ---
:1945 Author Name Lj Lopez, Provider Address Unavailable Unavailable , Care Team Providers Name Role Phone Navya Lopez, Alexy Arzola Unavailable [email or web address] Calderon Unavailable [email or web address] [email or web address], NO Unavailable Unavailable Unavailable Unavailable Unavailable Problems Hypothyroidism (244.9) (E03.9) Diabetes mellitus type 2, uncontrolled (250.02) (E11.65) Vertebral osteomyelitis (730.28) (M46.20) Andreea's thyroiditis (245.2) (E06.3) H/O stem cell transplant (V42.82) (Z94.84) Abnormal weight loss (783.21) (R63.4) Fatigue (780.79) (R53.83) Pneumonitis (486) (J18.9) S/P aortic valve replacement (V43.3) (Z95.2) Never a smoker Allergies and Adverse Reactions No Known Drug Allergies (Allergy) Medications DAPTOmycin 500 MG Intravenous Solution Reconstituted; USE DIRECTED. Start: 02-Aug-2018 Refills: 0 Metoprolol Tartrate 25 MG Oral Tablet; Take 1/2 tablet 12.5 mg twice daily Start: 21-Apr-2017 Refills: 0 BD Pen Needle Karlee U/F 32G X 4 MM; For use daily with lantus insulin pen John Mendosa Start: 04-Aug-2017 Quantity: 1 90 Unit Box Refills: 3 HumaLOG KwikPen 100 UNIT/ML Subcutaneous Solution Pen-injector; Use per sliding scale up to 60 units per day John Mendosa Start: 18-Dec-2017 Quantity: 5 3 ML Pen Refills: 10 Lantus SoloStar 100 UNIT/ML Subcutaneous Solution Pen-injector; Inject 8 units at bed time or as directed. John Mendosa Start: 25-Jun-2018 Quantity: 1 5 x 3 ML Pen Refills: 3 ReliOn Pen [place] 32G X 4 MM; USE TO INJECT INSULIN 4 TIMES DAILY John Mendosa Start: 25-Jun-2018 Quantity: 8 50 Unit Box Refills: 3 Tylenol Extra Strength 500 MG Oral Table t; Take one tablet every 4 hours as needed. Start: 25-Jun-2018 Refills: 0 Simethicone 125 MG Oral Capsule; TAKE 1 CAPSULE 4 TIMES ARON Y. Start: 25-Jun-2018 Refills: 0 Gas-X Prevention Oral Capsule; TAKE 1 CAPSULE Every 4 hours Start: 25-Jun-2018 Refills: 0 Levothyroxine Sodium 125 MCG Oral Tablet ; TAKE 1 TABLET SIX DAYS A WEEK ON AN EMPTY STOMACH WITH A FULL GLASS OF WATER, WAIT 30 MINUTES TO EAT John Mendosa Start: 25-Jul-2018 Quantity: 30 Refills: 3 ReliOn Prime Test In Vitro Strip; test 2 times daily. John Boucher Start: 25-Jun-2018 Quantity: 2 100 Strip Box Refills: 3 Levothyroxine Sodium 112 MCG Oral Tablet ; TAKE 1 TABLET FIRST THING IN THE MORNING WITH A FULL GLASS OF WATER, WAIT 30 MINS BEFORE EATING OR TAKING OTHER SUPPLEMENTS. John Mendosa Start: 16-Oct-2018 Quantity: 30 Refills: 5 Procedures Procedures not documented Immunizations Immunizations not documented Social History - Smoking Status Never smoker Interventions Medication ChangesReliOn Prime Test In Vitro Strip - Renew Plan of Treatment Planned Observations Planned Goals not documented Results No Known Results Results not documented Encounters Appointment; Michelle Arguelles DO 02-Aug-2018 11:30 Encounter Diagnosis: Problem not documented Appointment; Alexy Mendosa M.D. 25-Jun-2018 12:30 Encounter Diagnosis: Problem not documented Appointment; Alexy Mendosa M.D. 18-Dec-2017 14:40 Encounter Diagnosis: Problem not documented Appointment; Cici Persaud PA-C 15-Nov-2017 8:30 Encounter Diagnosis: Problem not documented Appointment; Alexy Mendosa M.D. 03-Nov-2017 11:00 Encounter Diagnosis: Problem not documented Appointment; Alexy Mendosa M.D. 15-Sep-2017 9:30 Encounter Diagnosis: Problem not documented Appointment; Alexy Mendosa M.D. 04-Aug-2017 14:30 Encounter Diagnosis: Problem not documented Appointment; Nicolette Nguyen R.D. 08-May-2017 12:30 Encounter Diagnosis: Problem not documented Appointment; Alexy Mendosa M.D. 03-May-2017 10:50 Encounter Diagnosis: Problem not documented Appointment; Nicolette Nguyen R.D. 24-Apr-2017 14:00 Encounter Diagnosis: Problem not documented
[2019-01-26] MEDS ORDERED: SODIUM CHLORIDE 0.9% 1000ML 1,000 ML IV SCH (20:30)
--- NOTE | 2019-01-26 20:39 | CT Scan Report ---
CT head/brain wo con CLINICAL HISTORY: 73 years-old Male with Stroke evaluation . Acute strokelike symptoms TECHNIQUE: Multiple axial CT images of the head were obtained without contrast. A dose lowering tech nique was utilized adhering to the principles of ALARA. CT DOSE: 537.48 mGy.cm COMPARISON: Head CT 04/04/2018 FINDINGS: No acute intracranial hemorrhage, midline shift, intracranial mass, hydrocephalus, territorial ischem ia or abnormal extra-axial collection. Age-related involutional changes. Patchy white matter hypodens ities suggest chronic microvascular ischemic disease. Senescent calcifications of the lentiform nucle i. There are progressive periventricular and subcortical white matter hypodensities, notably with a h ypodense focus of the left frontal lobe valentine radiata measuring up to 1.8 cm which is likely chronic . Cerebral vascular calcifications are noted. The calvarium is intact. Mild dorsal thickening of the ethmoid air cells. Small right mastoid effusi on. Left mastoid air cells are clear. Soft tissues and orbits are unremarkable. IMPRESSION: 1. No acute intracranial hemorrhage, midline shift or acute territorial infarct. 2. Age-related involutional changes with chronic microvascular ischemic disease. 3. There are multiple age-indeterminate lacunar infarctions noted about the bilateral periventricular distributions and valentine radiata which are progressively worsened from comparison study dated 2017. These findings are favored to be chronic in etiology. Correlate clinically. The above report was generated using voice recognition software. It may contain grammatical, syntax o r spelling errors. Electronically signed by: Ruben Silva M.D. 01/26/2019 8:38 PM
--- NOTE | 2019-01-26 20:41 | XRay Report ---
XR chest 1V portable HISTORY: 73 years-old Male stroke acute strokelike symptoms COMPARISON: Chest radiograph 07/28/2018 TECHNIQUE: Portable AP view of the chest FINDINGS: Cardiac mediastinal and hilar silhouettes are unchanged. Prior median sternotomy with cardiac valvula r prosthesis. Calcification the thoracic aortic arch. No pneumothorax, pleural effusion, focal airspa ce consolidation or overt pulmonary edema. Mild chronic interstitial coarsening of the lung bases. De generative changes of the shoulders and spine. IMPRESSION: No acute process. The above report was generated using voice recognition software. It may contain grammatical, syntax o r spelling errors. Electronically signed by: Ruben Silva M.D. 01/26/2019 8:39 PM
[2019-01-26 20:43] LABS: Hemoglobin 13.7 g/dL (14.0-18.0); Mean Corpuscular Hemoglobin 30.8 pg (25-34); Mean Corpuscular Hgb Conc 35.1 g/dL (32-36); Mean Corpuscular Volume 87.6 fL (80-100); RDW Coefficient of Variation 13.6 % (11.5-14.5); RDW Standard Deviation 44.2 fL (36.4-46.3); Red Blood Count 4.45 M/uL (4.7-6.1); White Blood Count 6.83 K/uL (4.8-10.8)
[2019-01-26 20:50] LABS: Partial Thromboplastin Ratio 0.9; Partial Thromboplastin Time 23.9 Seconds (21.0-31.0); Prothrombin Time 10.3 Seconds (9.0-12.0)
[2019-01-26 20:55] LABS: Alanine Aminotransferase 55 U/L (12-78); Albumin Level 4.1 gm/dl (3.4-5.0); Aspartate Aminotransferase 33 U/L (15-37); Blood Urea Nitrogen 18 mg/dl (7-18); Calcium 9.1 mg/dl (8.5-10.1); Carbon Dioxide 27 mmol/L (21-32); Chloride 104 mmol/L (98-107); Est GFR (African American) 68.7; Est GFR (Non-African American) 59.3; Glucose 191 mg/dl (70-99); Magnesium 2.1 mg/dl (1.8-2.4); Potassium 4.3 mmol/L (3.5-5.1); Sodium 137 mmol/L (136-145)
[2019-01-26 20:59] LABS: Albumin Globulin Ratio 1.3 (0.9-2); Alkaline Phosphatase 123 U/L (45-117); Bilirubin,Total 0.4 mg/dl (0.2-1); Globulin 3.1 gm/dl (2.5-4.0); Total Protein 7.2 gm/dl (6.4-8.2); Troponin I < 0.015 ng/ml (0-0.045)
[2019-01-26 21:04] LABS: Mean Platelet Volume 9.8 fL (7.4-10.4); Platelet Count 92 K/uL (130-400)
[2019-01-26 21:22] LABS: ALC (manual) 2.25 K/uL (1.2-3.4); ANC (manual) 4.02 K/uL (1.4-6.5); Eosinophils # (manual) 0.12 K/uL (0-0.5); Eosinophils % (manual) 1.8 %; Large Granular Lymph # (manua 1.58 K/uL; Large Granular Lymph % (manual) 23.2 %; Lymphocytes # (manual) 0.67 K/uL (1.2-3.4); Lymphocytes % (manual) 9.8 %; Monocytes # (manual) 0.43 K/uL (0.11-0.59); Monocytes % (manual) 6.3 %; Neutrophils # (manual) 4.02 K/uL (1.4-6.5); Neutrophils % (manual) 58.9 %; Platelet Estimate Decreased (Normal)
--- NOTE | 2019-01-26 22:50 | Emergency Department Note ---
Entered by Ivory Pace acting as a scribe for ED Provider Note CHIEF COMPLAINT: Stroke/CVA Symptoms HISTORY OF PRESENT ILLNESS: The patient is a 73 year old male who presents to the Emergency Room with complaints of possible stroke symptoms. He was brought to the ED via EMS. EMS states his last known well time was about 1700 tonight. He was sitting at dinner with his family when he suddenly slumped over. His daughter states he complained of abdominal pain before starting dinner when he suddenly looked up at her and became "rigid and started shaking", then passed out, hitting the floor. He was unresponsive on the floor for several minutes. When EMS arrived, he had regained consciousness and was alert, but altered. The patient has a history of a CVA in 2018 that they think was caused by "his history of stem cell transplant for AML". He was diagnosed with AML in 2013, took chemotherapy for 2 years, then underwent a stem cell transplant at [facility]. He was in remission for 2 years. His daughter reports he started "having problems" during the summer of 2018. He is not on daily blood thinners. He has not undergone any recent surgeries. He does have baseline garbled and slurred speech, but his daughter states "it's understandable". His speech was worse tonight than it normally is. The patient does have a slight right sided facial droop that is from his previous CVA. His PCP is Dr. Ibarra with [facility]. Pt denies headache, fevers, chills, diaphoresis, visual changes, neck pain, chest pain, breathing difficulties, nausea, vomiting, back pain, melena, hematochezia, urinary symptoms, numbness, lymphadenopathy, rash, or other complaints. REVIEW OF SYSTEMS: See HPI for pertinent positives and negatives. A total of ten systems were reviewed and were otherwise negative. PMHx/PSHx: Aortic Valve Replacement, AML, DVT, CKD, HTN, Hypothyroidism. SOCIAL HISTORY: Patient lives at home. PHYSICAL EXAM: GENERAL: Awake, alert, well-appearing, in no distress HENT: Normocephalic, atraumatic. Oropharynx unremarkable. EYES: PERRL. Normal conjunctiva. Sclera non-icteric. NECK: Inspection normal. Non-tender. Supple. No nuchal rigidity. FROM. No masses. RESPIRATORY: Clear to auscultation. No wheezes. No rales. Normal respiratory effort. CARDIAC: Normal rate. Normal rhythm. No murmurs. No rubs. Extremities warm and well perfused. Pulses equal. No JVD. GI: Soft, non-distended. No tenderness to palpation. No rebound or guarding. No masses. RECTAL: Deferred. MUSCULOSKELETAL: Atraumatic. Chest examination reveals no tenderness. The back is symmetrical on inspection without obvious abnormality. There is no CVA tenderness to palpation. No joint edema. LOWER EXTREMITIES: Calves are equal size bilaterally and non-tender. No edema. No discoloration. NEURO: Mild right facial droop, difficulty with rapid alternating movements, and mild expressive aphasia SKIN: No rash or jaundice noted. EMERGENCY DEPARTMENT COURSE: 2016: Past medical records reviewed. The patient was evaluated in room A1, and a complete history and physical examination were performed. 2029: I discussed the patients case with Dr. Romero, [facility] Stroke Neurology. The patient will be further evaluated. 2035: Dr. Silva from Radiology informed me there is no new bleeding seen on the Head CT. 2039: The patients speech is more clear as compared to when he first came in. 2122: I discussed the patients case with Dr. Romero again. She recommends an EEG and syncope workup as well as further evaluation by the hospital medicine team. The patient is not a TPA candidate. 2129: I reevaluated the patient. He is resting comfortably. I discussed his results and my recommendation he remain in the hospital for further evaluation and management and he and his family verbalized complete understanding and agreement. 2144: [facility] The patient will be further evaluated. MEDICAL DECISION MAKING: Stroke alert initiated prehospital. Nursing notes reviewed and agree them. Additional history obtained from patient's family and EMS. The patient's history was concerning for weakness. Differential diagnosis: Etiologies such as CVA, TIA, seizure, metabolic, infection, hypo/hyperglycemia, electrolyte abnormalities, cardiac sources, intracerebral event, toxicologic, neurologic, as well as others were entertained. Physical examination: As above. ER treatment provided: IV Lock Saline hydration Monitoring On reassessment the patient felt better. Diagnostics interpretation by me: ECG: No acute ischemia. No dysrhythmia. The labs revealed an unremarkable CBC and chemistry panel. Urinalysis pending. Imaging studies: CT scan of the head was performed and did not reveal any acute findings. There is some age-indeterminate older appearing issues as well. No bleeding or fracture. Chest x-ray was negative. Consultation: A consultation was placed with [facility]. I discussed case with Dr. Romero given the initial presentation of his difficulty speaking and facial droop. She did evaluate the patient. Family presented to emergency department and noted that he had some chronic speaking issues secondary to his last stroke as well as some mild facial droop. They note that he is actually speaking better than he was when EMS arrived and he is at his baseline. Given the situation she recommended against TPA and did ask for the patient to receive an EEG and admission to the hospital due to a possible syncopal episode as well as possible seizure. A consultation was placed with the hospitalist. The case was discussed and diagnostics were reviewed. The patient was evaluated in the ER for further treatment. IMPRESSION: Syncope, facial droop, slurred speech, history of CVA, stroke-like symptoms PLAN: Evaluation by Hospitalist The scribe's documentation has been prepared under my direction and personally reviewed by me in its entirety. I confirm that the note above accurately reflects all work, treatment, procedures, and medical decision making performed by me. 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 Surgical History S/P aortic valve replacement with bioprosthetic valve Aortic valve replaced (Chronic) H/o aortic stenosis s/p prosthetic valve replacement in 2012 H/O stem cell transplant (Chronic) [facility], September 2016 History of vascular access device INSERTION AND REMOVAL Family History Other Coronary heart disease Stroke Thyroid disorder Social History Preferred Language: Surinamese Communication Ability: Effective Crew Dispatcher Required: No Beliefs That Will Affect Care: None marital status: Current Living Situation: Spouse current occupational status: retired Feels Safe at Home: Yes Smoking Status: Unknown if ever smoked Hx Alcohol Use: No Hx Substance Use: No Results & Data Vital Signs Vital Signs - 24 hr 01/26/19 19:48 01/26/19 20:45 01/26/19 22:13 Temperature 36.9 C Temperature Source Oral Sepsis Recent Fever Within 48 Hours No Sepsis New/Unexplained Change in Mental Status Yes Sepsis Action Taken by Nursing No Action Required Pulse Rate 85 Pulse Rate [Left] 83 93 H Pulse Rhythm Regular Pulse Rhythm [Left] Regular Pulse Strength Normal Pulse Strength [Left] Normal Respiratory Rate 16 16 18 Respiratory Effort / Characteristics Non-Labored Spontaneous Non-Labored Spontaneous Respiratory Depth Normal Normal Respiratory Pattern Regular Blood Pressure 162/100 H Blood Pressure [Right Arm] 148/102 H 174/111 H Blood Pressure Mean 120 Blood Pressure Mean [Right Arm] 117 132 Blood Pressure Position Sitting Pulse Oximetry 99 99 97 Oxygen Delivery Method Room Air Room Air Room Air Home Medications Current Medication List: was personally reviewed by me Laboratory Data Attestation: I reviewed the patient's lab results. Result diagrams: 01/26/19 20:28 01/26/19 20:28 Lab Results 01/26/19 01/26/19 01/26/19 Range/Units 20:27 20:28 20:28 WBC 6.83 (4.8-10.8) K/uL RBC 4.45 L (4.7-6.1) M/uL Hgb 13.7 L (14.0-18.0) g/dL Hct 39.0 L (42-52) % MCV 87.6 (80-100) fL MCH 30.8 (25-34) pg MCHC 35.1 (32-36) g/dL RDW Std Deviation 44.2 (36.4-46.3) fL RDW Coeff of Paul 13.6 (11.5-14.5) % Plt Count 92 L (130-400) K/uL MPV 9.8 (7.4-10.4) fL Neutrophils % (Manual) 58.9 % Lymphocytes % (Manual) 9.8 % Monocytes % (Manual) 6.3 % Eosinophils % (Manual) 1.8 % Neutrophils # (Manual) 4.02 (1.4-6.5) K/uL Total Absolute Neuts 4.02 (1.4-6.5) K/uL Lymphocytes # (Manual) 0.67 L (1.2-3.4) K/uL Total Abs Lymphocytes 2.25 (1.2-3.4) K/uL Monocytes # (Manual) 0.43 (0.11-0.59) K/uL Eosinophils # (Manual) 0.12 (0-0.5) K/uL Large Granular Lymphs 23.2 % # Lrg Granular Lymphs 1.58 K/uL Platelet Estimate Decreased L (Normal) PT 10.3 (9.0-12.0) Seconds INR 1.0 (0.9-1.1) APTT 23.9 (21.0-31.0) Seconds PTT Ratio 0.9 Sodium (136-145) mmol/L Potassium (3.5-5.1) mmol/L Chloride (98-107) mmol/L Carbon Dioxide (21-32) mmol/L Anion Gap (3-11) BUN (7-18) mg/dl Creatinine (0.6-1.4) mg/dl Est Cr Clr Drug Dosing Est GFR ( Amer) Est GFR (Non-Af Amer) BUN/Creatinine Ratio (10-20) Glucose (70-99) mg/dl POC Glucose 165 H (70-99) Calcium (8.5-10.1) mg/dl Magnesium (1.8-2.4) mg/dl Total Bilirubin (0.2-1) mg/dl AST (15-37) U/L ALT (12-78) U/L Alkaline Phosphatase (45-117) U/L Troponin I (0-0.045) ng/ml Total Protein (6.4-8.2) gm/dl Albumin (3.4-5.0) gm/dl Globulin (2.5-4.0) gm/dl Albumin/Globulin Ratio (0.9-2) Blood Type Antibody Screen 01/26/19 01/26/19 Range/Units 20:28 20:28 WBC (4.8-10.8) K/uL RBC (4.7-6.1) M/uL Hgb (14.0-18.0) g/dL Hct (42-52) % MCV (80-100) fL MCH (25-34) pg MCHC (32-36) g/dL RDW Std Deviation (36.4-46.3) fL RDW Coeff of Paul (11.5-14.5) % Plt Count (130-400) K/uL MPV (7.4-10.4) fL Neutrophils % (Manual) % Lymphocytes % (Manual) % Monocytes % (Manual) % Eosinophils % (Manual) % Neutrophils # (Manual) (1.4-6.5) K/uL Total Absolute Neuts (1.4-6.5) K/uL Lymphocytes # (Manual) (1.2-3.4) K/uL Total Abs Lymphocytes (1.2-3.4) K/uL Monocytes # (Manual) (0.11-0.59) K/uL Eosinophils # (Manual) (0-0.5) K/uL Large Granular Lymphs % # Lrg Granular Lymphs K/uL Platelet Estimate (Normal) PT (9.0-12.0) Seconds INR (0.9-1.1) APTT (21.0-31.0) Seconds PTT Ratio Sodium 137 (136-145) mmol/L Potassium 4.3 (3.5-5.1) mmol/L Chloride 104 (98-107) mmol/L Carbon Dioxide 27 (21-32) mmol/L Anion Gap 6.0 (3-11) BUN 18 (7-18) mg/dl Creatinine 1.22 (0.6-1.4) mg/dl Est Cr Clr Drug Dosing Not Reportable Est GFR ( Amer) 68.7 Est GFR (Non-Af Amer) 59.3 BUN/Creatinine Ratio 15.0 (10-20) Glucose 191 H (70-99) mg/dl POC Glucose (70-99) Calcium 9.1 (8.5-10.1) mg/dl Magnesium 2.1 (1.8-2.4) mg/dl Total Bilirubin 0.4 (0.2-1) mg/dl AST 33 (15-37) U/L ALT 55 (12-78) U/L Alkaline Phosphatase 123 H (45-117) U/L Troponin I < 0.015 (0-0.045) ng/ml Total Protein 7.2 (6.4-8.2) gm/dl Albumin 4.1 (3.4-5.0) gm/dl Globulin 3.1 (2.5-4.0) gm/dl Albumin/Globulin Ratio 1.3 (0.9-2) Blood Type O Negative Antibody Screen NEGATIVE Administered Medications Sodium Chloride (Nss 1000ml) 1,000 mls @ 50 mls/hr IV .Q20H KASSANDRA Stop: 02/25/19 20:29 Last Admin: 01/26/19 20:41 Dose: 50 mls/hr Documented by: [id number] Imaging Data Radiologist's Impression: Radiology results as stated below per my review and the radiologist's interpretation: XR chest 1V portable HISTORY: 73 years-old Male stroke acute strokelike symptoms COMPARISON: Chest radiograph 07/28/2018 TECHNIQUE: Portable AP view of the chest FINDINGS: Cardiac mediastinal and hilar silhouettes are unchanged. Prior median sternotomy with cardiac valvular prosthesis. Calcification the thoracic aortic arch. No pneumothorax, pleural effusion, focal airspace consolidation or overt pulmonary edema. Mild chronic interstitial coarsening of the lung bases. Degenerative changes of the shoulders and spine. IMPRESSION: No acute process. The above report was generated using voice recognition software. It may contain grammatical, syntax or spelling errors. Electronically signed by: Ruben Silva M.D. 01/26/2019 8:[address] head/brain wo con CLINICAL HISTORY: 73 years-old Male with Stroke evaluation . Acute strokelike symptoms TECHNIQUE: Multiple axial CT images of the head were obtained without contrast. A dose lowering technique was utilized adhering to the principles of ALARA. CT DOSE: 537.48 mGy.cm COMPARISON: Head CT 04/04/2018 FINDINGS: No acute intracranial hemorrhage, midline shift, intracranial mass, hydrocephalu s, territorial ischemia or abnormal extra-axial collection. Age-related involutional changes. Patchy white matter hypodensities suggest chronic microvascular ischemic disease. Senescent calcifications of the lentiform nuclei. There are progressive periventricular and subcortical white matter hypodensities, notably with a hypodense focus of the left frontal lobe valentine radiata measuring up to 1.8 cm which is likely chronic. Cerebral vascular calcifications are noted. The calvarium is intact. Mild dorsal thickening of the ethmoid air cells. Small right mastoid effusion. Left mastoid air cells are clear. Soft tissues and orbits are unremarkable. IMPRESSION: 1. No acute intracranial hemorrhage, midline shift or acute territorial infarct. 2. Age-related involutional changes with chronic microvascular ischemic disease. 3. There are multiple age-indeterminate lacunar infarctions noted about the bilateral periventricular distributions and valentine radiata which are progressively worsened from comparison study dated 04/04/2018. These findings are favored to be chronic in etiology. Correlate clinically. The above report was generated using voice recognition software. It may contain grammatical, syntax or spelling errors. Electronically signed by: Ruben Silva M.D. 01/26/2019 8:38 PM ECG Data Attestation: I personally reviewed and interpreted this ECG as follows: Indication: weakness (Stroke symptoms) Rate (beats per minute): 91 Rhythm: sinus rhythm Findings: + PVC; no ST depression and no ST elevation Blood Pressure Blood Pressure Findings: Elevated blood pressure Blood Pressure Disposition: further management by hospitalist Discharge Plan Visit Data Chief Complaint: Stroke/CVA Symptoms Stated Complaint: CVA ED Provider: Seth Carlos Discharge Problem: Syncope, Facial droop, Slurred speech, History of CVA (cerebrovascular accident), Stroke-like symptoms Patient Disposition: Being Evaluated by Hospitalist Forms Stand Alone Forms: My [facility] Mildred Bunch Prescriptions Prescriptions: No Action levothyroxine 112 mcg tablet 112 mcg PO QAM RF: 0 dicyclomine 10 mg capsule 10 mg PO AC RF: 0 tamsulosin 0.4 mg capsule 0.4 mg PO QAM RF: 0 potassium chloride 20 mEq tablet extended release 20 meq PO DAILY PRN (Reason: Hypokalemia) RF: 0 finasteride 5 mg tablet 5 mg PO HS RF: 0 simethicone [Gas-X Extra Strength] 125 mg Capsule 125 mg PO ACHS RF: 0 acetaminophen [Tylenol Extra Strength] 500 mg Tablet 500 mg PO QID PRN (Reason: Pain) RF: 0 Lantus U-100 Insulin 100 unit/mL Solution 8 unit SUBCUT HS RF: 0 insulin lispro [Humalog KwikPen Insulin] 100 unit/mL Insulin Pen subcut AC PRN (Reason: Hyperglycemia) RF: 0 metoprolol tartrate 25 mg Tablet 12.5 mg PO HS RF: 0 Probiotic 3 billion cell Capsule 3,000 mmu cells PO BID RF: 0 Referrals Referrals: Sonja Peña, [Primary Care Provider] - The scribe's documentation has been prepared under my direction and personally reviewed by me in its entirety. I confirm that the note above accurately reflects all work, treatment, procedures, and medical decision making performed by me.
[2019-01-27] MEDS ORDERED: NITROGLYCERIN SL 0.4 MG/TAB TAB SL PRN (00:46)
[2019-01-27] MEDS ORDERED: ONDANSETRON INJ 2 MG/ML 2 ML VIAL IV PRN (00:46)
[2019-01-27] MEDS ORDERED: POLYETHYLENE (MIRALAX) 17 GM PACK PO PRN (00:46)
[2019-01-27] MEDS ORDERED: PHARMACIST DISCHARGE MED REC CONSULT PRN (00:46)
[2019-01-27] MEDS ORDERED: POTASSIUM CHLORIDE 20 MEQ TABCR PO PRN (00:46)
[2019-01-27] MEDS ORDERED: GLUCOSE 10 TABS/TUBE PO PRN (01:15)
[2019-01-27] MEDS ORDERED: CARBOHYDRATES FOR HYPOGLYCEMIA PO PRN (01:15)
[2019-01-27] MEDS ORDERED: GLUCOSE 40% GEL 15 GM TUBE PO PRN (01:15)
[2019-01-27] MEDS ORDERED: DEXTROSE 50% 50 ML SYRINGE IV PRN (01:15)
[2019-01-27] MEDS ORDERED: GLUCAGON FOR INJ 1 MG VIAL SQ PRN (01:15)
--- NOTE | 2019-01-27 03:11 | History and Physical Report ---
DATE OF ADMISSION: 01/26/2019 CHIEF COMPLAINT: Stroke-like symptoms. 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 He was on PEG tube post CVA where PEG tube was removed in June 2018, history of C. diff infection, history of fungal pneumonia, history of EBV viremia, enlarged prostate, peripheral drug-induced nephropathy, chronic abdominal pain etiology unclear. He has a history of disseminated shingles. CBD oil helps abdominal pain.. He was seen by GI and underwent endoscopy and EGD which were unremarkable. He was on Diflucan and acyclovir , but that was stopped prior to the transfer to [place] last admission when he was admitted for abdominal pain and diskitis in June 2018. They were stopped because he is no longer on immunosuppressants. The patient was here in the hospital, was admitted on 07/02/2018 for abdominal pain and at that time, CAT scan of the abdomen showed possible diskitis and MRI showed L5-S1 diskitis and an epidural phlegmon with mass effect on the right S1 nerve root. He was transferred to [place] where laminectomy was done by orthopedics and was treated with 6 weeks of IV vancomycin. The patient has followup with MRI scans of the lumbar spine and thoracic spine and they seems to be okay. Currently, presents with syncope and stroke-like symptoms. The patient was sitting to eat today dinner when he complained of abdominal pain. . His asked him to wait until the abdominal pain passes away, then suddenly she noticed that he fell down on the floor. He seemed to be a bit shaky, but she was not sure if he was really shaking or not. When on the floor he passed out for about 5-10 minutes, no biting of tongue, no incontinence. At that time, she called 911. Then he woke up and he seemed a little confused for some time and by the time EMS came, he was alert and awake and back to his baseline. He has some laceration on of top of his head . There was some question of right facial droop. Stroke alert was called initially prior to coming to the ER. CT of the head was done with no acute findings. The says that right facial droop is from his previous stroke and he seemed to be back to his baseline, so no tPA was given. There is question of syncope versus seizures. The patient currently denies any headache. He has some blurred vision because of being on steroids in the past. Denies any earache. There is some runny nose, denies any sore throat. He is currently swallowing okay with a regular diet, sometimes it is difficult with meat. No chest pain, no shortness of breath, no cough, no fever, no chills, no nausea, no abdominal pain currently. Normal bowel and bladder movements. No hematuria, no dysuria, no hematochezia. No swelling in the legs, no rash. says he is not on aspirin because last stroke had come from his infection and he gets bruises with aspirin, she gives aspirin every other day. Currently resting comfortably and hemodynamically stable.Currently he ambulates without any help at home. ALLERGIES: No known drug allergies. PAST MEDICAL HISTORY: As mentioned above. PAST SURGICAL HISTORY: Colonoscopy, cardiac catheterization, EGDs, right parotid biopsy, hemilaminectomy, removal of tunneled venous catheter, removal of parotid gland, tonsillectomy, replacement of aortic prosthetic valve. MEDICATIONS: The patient is on Toprol-XL 12.5 mg p.o. daily, Flomax 0.4 mg p.o. daily, Proscar 5 mg p.o. daily, levothyroxine 112 mcg daily, lisinopril 10 mg p.o. t.i.d. p.r.n., amoxicillin 2000 mg prior to dental work, potassium chloride 20 mEq p.o. daily as needed, Pepcid 20 mg p.o. b.i.d., NovoLog sliding scale, Ensure as needed, simethicone 80 mg every 6 hours p.r.n., Tylenol 500 mg p.o. q. 4 hours p.r.n., insulin 80 units p.o. at bedtime, probiotics 2 tablets daily. FAMILY HISTORY: Significant for father had CAD stents. Mother had stroke. Brother had thyroid disorder. SOCIAL HISTORY: and lives with his . No smoking, no alcohol, no drug use. REVIEW OF SYSTEMS: As per HPI. Rest of review of systems negative. PHYSICAL EXAMINATION: GENERAL: The patient is of moderate build, not in acute distress. VITAL SIGNS: Temperature 36.9, pulse 93, respiratory rate 18, blood pressure 174/111, oxygen 97% on room air. HEENT: No pallor, no icterus. Pupils equal, round, and reactive to light.Laceration on upper occipital region. NECK: No JVD, no neck masses, no carotid bruits. CARDIOVASCULAR: S1, S2 heard, regular rate and rhythm, no murmur. RESPIRATORY SYSTEM: Normal AP diameter. No accessory muscle use. No wheezing, no crackles. ABDOMEN: Soft, bowel sounds present. Nontender. No distention. CENTRAL NERVOUS SYSTEM: Speech is clear. Mild right facial droop. Power 5/5 in left extremities, 4/5 in right extremities. Coordination of movements is normal. Omummg-ac-abpp test normal. No pronator drift. Gtdu-yi-wqvz test normal. Sensation is intact. Position is intact. Recent and remote memory intact. Alert and oriented x3. EXTREMITIES: No edema, no erythema. LABORATORY DATA: WBC 6.8, hemoglobin 13.7, hematocrit 39, platelets 92. PT 10.3, INR 1, APTT 23.9. Sodium 137, potassium 4.3, chloride 104, bicarbonate 27, BUN 18, creatinine 1.2, serum glucose 191, calcium 9.1, magnesium 2.1, total bilirubin 0.4, AST 33, ALT 35, alkaline phosphatase 123. Troponin I less than 0.015. IMAGING DATA: Chest x-ray: No acute process seen. CT of the head, no acute intracranial hemorrhage, midline shift, or acute territorial infarct, age-related involutional changes with chronic microvascular ischemic disease, there are multiple age indeterminate lacunar infarctions noted about the bilateral periventricular distributions of valentine radiata, which have progressively worsened from compression study 03/17/18. These findings favored to be chronic in etiology. EKG: Sinus rhythm with occasional PVCs and fusion complexes, rate of 91. ASSESSMENT AND PLAN: This is a 73-year-old male who presents with stroke-like symptoms. 1. Stroke-like symptoms, possible syncope also versus seizures. The patient passed out for 5-10 minutes at home. Question of shaking, no biting of tongue, no incontinence. He was confused for a brief period of time. History of stroke in the past. His past stroke was thought to be emboli from endocarditis of his prosthetic valve. Stroke alert was called, but the patient is mostly back to his baseline. No tPA was given. CT of the head is unremarkable. We will do a full stroke workup with MRI scans, echo, carotid Doppler. Monitor in the tele floor. Neuro checks. Neurology consult in a.m. The patient takes aspirin every other day as per , but we will give aspirin every day while patient is here. Follow lipid profile. We will also work up for seizures or syncope with echo and EEGs and monitor in the tele floor. We will place him on soft diet and speech evaluation and PT, OT evaluation. 2. Recent history of epidural abscess and diskitis, status post laminectomy and antibiotics. 3. History of AML, status post bone marrow transplant in September 2016 at [facility] currently in remission.Follows with heme/oco. 4. History of graft versus host disease, currently not on immunosuppressants, could not tolerate. 5. Hypertension, on Toprol-XL. We will monitor the blood pressure. 6. Diabetes, steroid-induced, on Lantus and Humalog. Will continue Lantus and will place on insulin sliding scale. Follow the blood sugars, follow the HbA1c levels. 7. History of hypothyroidism. Continue Synthroid. 8. History of benign prostatic hypertrophy. Continue Flomax and Proscar. 9. Gastroesophageal reflux disease, continue Pepcid. 10. Chronic right-sided congestive heart failure, not on any diuretics. We will monitor him for volume overload. Follow echocardiogram. 11. Chronic thrombocytopenia. We will follow the labs. 12. Chronic abdominal pain. He has Bentyl, which he will continue. At home use CBD oil. 13. Deep thrombosis prophylaxis, sequential compression devices for now. 14. Disposition: Closely monitor in tele floor. Level 1 full code as per my discussion. PT/OT prior to discharge. Social service to help with discharge planning. [facility]
[2019-01-27 06:18] LABS: Hematocrit (blood only) 34.5 % (42-52); Mean Corpuscular Hemoglobin 30.5 pg (25-34); Mean Corpuscular Hgb Conc 34.8 g/dL (32-36); Mean Corpuscular Volume 87.8 fL (80-100); RDW Coefficient of Variation 13.7 % (11.5-14.5); RDW Standard Deviation 44.4 fL (36.4-46.3); Red Blood Count 3.93 M/uL (4.7-6.1); White Blood Count 7.89 K/uL (4.8-10.8)
[2019-01-27 06:23] LABS: Mean Platelet Volume 9.6 fL (7.4-10.4); Platelet Count 88 K/uL (130-400)
[2019-01-27 06:44] LABS: Basophils # (auto) 0.02 K/uL (0-0.2); Basophils % (auto) 0.3 %; Eosinophils # (auto) 0.06 K/uL (0-0.5); Eosinophils % (auto) 0.8 %; Immature Granulocytes # (auto) 0.02 K/uL (0.00-0.02); Immature Granulocytes % (auto) 0.3 %; Lymphocytes # (auto) 3.36 K/uL (1.2-3.4); Lymphocytes % (auto) 42.6 %; Monocytes # (auto) 0.63 K/uL (0.11-0.59)
[2019-01-27 06:50] LABS: Calcium 8.6 mg/dl (8.5-10.1); Creatinine Clr Calc Pharmacy 45.3 ml/min; Est GFR (African American) 80.5; Est GFR (Non-African American) 69.5; Potassium 4.1 mmol/L (3.5-5.1)
[2019-01-27] MEDS: LEVOTHYROXINE SODIUM 112 MCG TABLET PO SCH (07:07)
[2019-01-27] MEDS: DICYCLOMINE HCL 10 MG CAP PO SCH ×3 (07:59→17:18)
[2019-01-27] MEDS: ASPIRIN 81 MG ECTAB PO SCH (07:59)
[2019-01-27] MEDS: SIMETHICONE 80 MG CHEW PO SCH ×4 (07:59→21:06)
[2019-01-27] MEDS: LACTOBACILLUS ACIDOPHILUS (FLORANEX) TAB PO SCH (07:59)
[2019-01-27] MEDS: INSULIN ASPART 100 UNITS/ML 3 ML PEN SC SCH ×4 (08:03→21:07)
--- NOTE | 2019-01-27 09:12 | Ultrasound Report ---
US carotid doppler BI CLINICAL HISTORY: 73 years-old Male with cva. Acute strokelike symptoms COMPARISON: CT head 01/26/2019 TECHNIQUE: Multiple real time sonographic images of the carotid bifurcations were obtained assessing keating scale, color Doppler and spectral wave form appearance FINDINGS: RIGHT CAROTID: The peak systolic velocity within the right ICA measures up to54 cm/sec. The end hilaria stolic velocity measured 18 cm/sec. The ICA to CCA ratio measured 0.8 which correlates with a stenos is of 0-50%. Mild to moderate mostly calcified plaque of the right carotid bulb and proximal right IC A. LEFT CAROTID: The peak systolic velocity within the left ICA measures up to64 cm/sec. The end diast olic velocity measured 23 cm/sec. The ICA to CCA ratio measured 0.7 which correlates with a stenosis of 0-50%. Moderate calcified plaque of the left carotid bulb and proximal left ICA. There is normal antegrade vertebral flow bilaterally. IMPRESSION: 1. Calcified plaque of the bilateral carotid bulbs and proximal internal carotid arteries, left grea ter than right. No hemodynamically significant stenosis. 2. Normal antegrade vertebral flow bilaterally. The above report was generated using voice recognition software. It may contain grammatical, syntax o r spelling errors. Electronically signed by: Ruben Silva M.D. 01/27/2019 9:11 AM
[2019-01-27] MEDS ORDERED: GADOBUTROL 65ML VIAL IV PRN (09:54)
--- NOTE | 2019-01-27 10:15 | Magnetic Resonance Report ---
MR brain wo/w con HISTORY: 73 years-old Male cva . Acute strokelike symptoms with recent head injury and blurry vision . Acute left-sided weakness COMPARISON: Head CT 01/26/2019, MRI lumbar spine 07/03/2018. TECHNIQUE: Multiplanar multisequence MRI of the brain was obtained both with and without the use of 5 .0 mL Gadavist FINDINGS: Tourist Escort localizer images demonstrate no gross extracranial abnormality. There is no restricted diffusio n to suggest acute or subacute infarction. Midline structures including the corpus callosum, brainste m, optic chiasm, pituitary and pineal glands appear unremarkable on the sagittal T1 series. No cerebe llar tonsillar herniation. Degenerative changes noted about the imaged cervical spine with heterogene ous signal of the bone marrow which appears similar to lumbar spine MRI dated 07/03/2018. No acute intracranial hemorrhage, midline shift, abnormal extra axial collection, hydrocephalus or in tracranial mass identified. Age-related involutional changes with patchy moderate to severe foci of T 2/FLAIR prolongation suggestive of chronic microvascular ischemic disease. Remote lacunar infarction of the inferior right cerebellar hemisphere. Multiple remote lacunar infarctions of the valentine radiat a and basal ganglia. Punctate focus of blooming artifact noted about the left frontal lobe may reflec t an area of chronic hemosiderin. There is mild thickening with increased attenuation of the dura. 4 mm enhancing dural focus adjacent to left frontal lobe on image 58 series 12 may reflect a vascular s tructure or a small meningioma. No enhancing intra-axial mass. Small left and large right mastoid effusions. Mild mucosal thickening of the nasal turbinates and par anasal sinuses. Skull and orbits are unremarkable. Metallic density focus suggestive of biopsy clip p rojects over the superficial right parotid lobe. 2.4 x 2.2 cm intermediate T1 signal and lobular T2 h yperintense signal of the lesion is noted with areas of mild internal septal enhancement. IMPRESSION: 1. No acute intracranial hemorrhage, midline shift, acute or subacute infarct. 2. Mild thickening with increased enhancement of the pachymeninges. This finding is nonspecific and m ay be seen in cases of spontaneous intracranial hypotension among other etiologies. 3. Heterogeneous lesion of the superficial right parotid lobe with possible biopsy clip is noted with mild internal septal enhancement. Correlate with patient history. 4. Additional findings as above. The above report was generated using voice recognition software. It may contain grammatical, syntax o r spelling errors. Electronically signed by: Ruben Silva M.D. 01/27/2019 10:12 AM
[2019-01-27] MEDS: TAMSULOSIN HCL 0.4 MG CAP PO SCH (10:45)
[2019-01-27] MEDS ORDERED: HYDROmorphone INJ 0.5 MG/0.5 ML SYR IV ONE (11:48)
[2019-01-27] MEDS ORDERED: ENALAPRILAT IV ONE (12:00)
--- NOTE | 2019-01-27 12:44 | XRay Report ---
XR abdomen 2V w PA chest HISTORY: 73 years-old Male abdominal pain acute generalized abdominal pain COMPARISON: Chest radiograph 01/26/2019, CT abdomen pelvis 07/02/2018 TECHNIQUE: PA view the chest with erect and supine views of the abdomen FINDINGS: Cardiac mediastinal and hilar silhouettes are unchanged. Prior median sternotomy with cardiac valvula r prosthesis. Calcification the thoracic aortic arch. No pneumothorax, pleural effusion, focal airspa ce consolidation or overt pulmonary edema. Mild chronic interstitial coarsening of the lung bases. De generative changes of the shoulders and spine. Vascular calcifications are noted about the abdominal left upper quadrant. Previously noted bilateral renal calculi are not definitively seen. No renal or ureteral calculi identified on today's study. T here are scattered air-fluid levels noted within the large bowel. Nonobstructive bowel gas pattern. N o pneumatosis or pneumoperitoneum. Degenerative changes of the spine, pelvis and hips. IMPRESSION: 1. No acute processes of the chest. 2. Nonobstructive bowel gas pattern without pneumoperitoneum. 3. Multiple air-fluid levels about the large bowel are suggestive of diarrheal illness. The above report was generated using voice recognition software. It may contain grammatical, syntax o r spelling errors. Electronically signed by: Ruben Silva M.D. 01/27/2019 12:43 PM
--- NOTE | 2019-01-27 13:05 | Communication Note ---
Date of Service: January 27, 2019 I seen Mr. Gonzalez today, reviewed his history, and have discussed the events of yesterday with both he and his . 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 Lesser problems include parotid tumors post surgery, and chronic abdominal pain of uncertain origin with questions being raised about whether this might be "nerve pain" perhaps related to his PEG tube insertion after his stroke or a combination of this and irritable bowel syndrome and is being assessed by gastroenterology currently for this issue. He takes topical CBD oil and systemic CBD preparations which seem to help some pain and Bentyl also apparently helps In this setting then he had an acute abdominal pain episode typical of his usual episodes yesterday but then during it had a syncopal event in which he fell off to the left, struck his head, may have had some brief jerking movements of his body but never had any incontinence, and was unresponsive with stertorous respirations for period of 5 to 10 minutes but then by the time the medical coding specialist arrived was back to nearly his baseline. There may have been some increase in his chronic right sided weakness during this event but this is a little vague Imaging studies only show evidence for the old infarctions deep in the right hemisphere and also in the left as well and some thickening of the meninges of nonspecific type with weak enhancement that could certainly reflect the effects of prior REGULATORY COMPLIANCE OFFICER infections. Duplex of the carotid arteries have shown nothing of significance Exam today reveals only a right upper motor neuron facial asymmetry and a mild drift of the right upper extremity with equivocal right toe sign Laboratory studies have shown no elevation of white count, elevation of CPK or indeed anything that would suggest port presence of any seizure EEG is pending I doubt that this is anything more than convulsive syncope likely mediated through pain induced activation of the vagus nerve bradycardia, hypoperfusion and global loss of cerebral blood flow. Because of the abdominal pain is uncertain and questions have been raised about radicular involvement I am not sure what imaging studies have been done by the [facility] orthopedic group and will try to review the studies tomorrow If thoracic and cervical MRI scans have not been done I am going to suggest that they be done just for sake of completeness to exclude the remote possibility of that the abdominal pain is due to a significant structural radiculopathy at about T6-T7 level and to be sure there is nothing in the cervical cord and may be producing a false thoracic pain localization to an intraspinal lesion Will be back tomorrow after reviewing the studies have been done in [place] and to read the EEG which will be done tomorrow Seth Figueroa MD
--- NOTE | 2019-01-27 13:56 | Progress Note ---
DATE: 01/27/2019 REQUESTING PHYSICIAN: Dr. Meyer. HISTORY OF PRESENT ILLNESS: Oz is a 73-year-old, is a patient of Dr. Sonja Ibarra in [place] and has an incredibly complex medical history as outlined on Dr. 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 Again, I refer the reader to the details of the past history outlined in Dr. Jordan's admission note and we will not reiterate them In this setting, he had an episode of abdominal pain yesterday while eating, he was trying to apply the CBD oil, but then lost consciousness, tipped off to his left toe, striking his head, but on the way to the floor, may have had some jerking movements and may have had a few jerking movements after he struck his head. He was unresponsive with stertorous respirations, but then came around after the wildlife technician arrived probably about 5-10 minutes later and has been back to his baseline pretty much ever since. There may have been some slight worsening of his right-sided weakness during this event. Workup to exclude a new stroke, etc., has been completed with a negative MRI for new events, negative CT scans and MRI showing only old disease, and a duplex of the carotids which shows nothing of significance. An EEG is pending and there has been a question about whether or not this was a seizure-like event. From a neurologic point of view, we were asked to address the syncope, but we may also be asked to address the abdominal pain as Gastroenterology and they in the course of the evaluation have apparently suggested that this may be "nerve pain." I do not know if this man's ever had a thoracic or cervical MRI scans, but need to review the studies and we may end up ordering these just for sake of completeness if they have not been done in [facility] over the past several years. MEDICATIONS: Include Toprol, Flomax, Proscar, levothyroxine, lisinopril, amoxicillin for dental work, potassium chloride, Pepcid, NovoLog sliding scale, Ensure as needed, simethicone, Tylenol, insulin, probiotics and various CBD preparations both orally and topically which do help some pain and apparently Bentyl, which has helped some of the abdominal pain which is often postprandial or periprandial in origin. ALLERGIES: He has no known drug allergies. SURGICAL HISTORY: Reveals colonoscopy, cardiac catheterizations, EGDs, right parotid biopsy, hemilaminectomy, removal of tunneled venous catheter, removal of parotid gland, tonsillectomy, replacement of aortic valve, etc. He is not on any active anticoagulation for the aortic valve, but does take an aspirin apparently every 3 days, at this reduced dose due to excessive and very easy bleeding. FAMILY HISTORY: Significant for father with coronary disease and mother with stroke and a brother with thyroid disease. SOCIAL HISTORY: Reveals him to be , living with his , nonsmoker, nonconsumer of ethanol and nonconsumer of illicit drugs and to be retired. REVIEW OF SYSTEMS: Actually reveals that his health has been reasonably good for the last several months after the bout of diskitis and has really had no particular headaches, visual disturbances. New problems with his cardiovascular, pulmonary, gastrointestinal, genitourinary, musculoskeletal, dermatologic, endocrinologic or hematologic systems other than the chronic abdominal pain which is being evaluated. PHYSICAL EXAMINATION: GENERAL: Yesterday revealed the patient to be thin, but otherwise well-developed, well-nourished. VITAL SIGNS: He had a temperature of 36.9, pulse 93, respirations were 18, blood pressure 174/111, O2 saturations 97%. HEENT: There were no deformities on examination of head, eyes, ears, nose and throat. NECK: No carotid bruits were heard. LUNGS: Clear. HEART: Had a regular rhythm with a prosthetic valve murmur. ABDOMEN: Soft, nontender. EXTREMITIES: Free of edema. Alert, cooperative, oriented in 3 spheres. NEUROLOGIC: Mildly hearing impaired. He has normal extraocular movements, normal visual campbell, normal facial motility, but there is a right upper motor neuron facial asymmetry and he has normal facial sensation and slightly dysarthric speech which apparently is baseline. He has a slight drift of the right upper extremity. Otherwise, there are no significant motor system signs other than an equivocal right extensor toe sign. Reflexes are hypoactive at the ankles, but slightly brisker on the right arm, right leg. Strength testing is normal, and despite a history of diabetes. He has been pretty good vibratory sense, light touch and temperature appreciation of the extremities. I reviewed the labs and the imaging studies and note that he really does not have much of a white count. He has had no elevation of CPK, the MRI scan shows some nonspecific meningeal thickening which may be a residual of his prior infections in the lumbar spine, possibly the shingles viremia, but are not accompanied by any clinical signs of meningitis or indeed anything of concern. There is certainly no evidence for a new stroke. He has normal duplex studies allowing for some atheromatous changes. We are waiting for the EEG, but again I doubt that this was anything more than a syncopal event with convulsive syncope and likely an event mediated by the severity of his abdominal pain with a reflex vagal mediated bradycardia. We may end up doing the MRIs of the thoracic and cervical spines just to clear the air regarding a potential cause of his abdominal pain in the thoracic spine and thoracic nerve roots and an intraparenchymal lesion at the cervical cord level which might produce a false thoracic localization of pain, but frankly I think both of these possibilities are extremely remote. I will be back to see him tomorrow, review of the EEG, but at this point, I am not recommending any anticonvulsant therapy. MONICAD
--- NOTE | 2019-01-27 19:19 | Hospitalist Progress Note ---
Date of Service January 27, 2019 Assessment & Plan (1) Syncope: Syncope (Acute) Episode of syncope day of admission associated with abdominal pain. Neuroimaging per CT and MRI showed chronic changes. Seen in consultation by Neuro. Probable vasovagal episode. EEG pending. Abdominal pain Chronic problem, etiology uncertain. Has been evaluated by GI. Plain films show nonspecific gas, no apparent obstruction. Continue dicyclomine AC. Review old records. Aortic valve replaced (Chronic) History of endocarditis with cardioemboli. Check blood cultures with next labs. HTN (hypertension) (Chronic) Continue metoprolol. Chronic kidney disease (Chronic) Creatinine = 1.07. Follow. DM type 2 Continue insulin per protocol. Hypothyroidism (Chronic) Continue levothyroxine. AML (acute myeloid leukemia) (Chronic) Management per Hematology. VTE prophylaxis SCDs ordered. Ambulate. Disposition Anticipated discharge to home. Medical follow-up with Dr. Peña. Subjective Recheck for multiple problems. Patient seen in their room around 1040. Experienced severe abdominal pain last evening followed by syncopal episode. Neurocognitive status subsequently returned to normal. Has had chronic abdominal pain for some time with different etiologies postulated. Still having abdominal pain today. No nausea, vomiting, diarrhea, melena, hematochezia. Review of Systems: Constitutional- no fever. Cardiac- no chest pain. Pulmonary- no cough or SOB. GI- as noted above. - no urinary symptoms. Otherwise, as noted above. 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 No acute processes of the chest. 2. Nonobstructive bowel gas pattern without pneumoperitoneum. 3. Multiple air-fluid levels about the large bowel are suggestive of diarrheal illness. The above report was generated using voice recognition software. It may contain grammatical, syntax or spelling errors. Electronically signed by: Ruben Silva M.D. 01/27/2019 12:43 PM
[2019-01-27] MEDS: INSULIN GLARGINE SOLOSTAR 100 UNITS/ML 3 ML PEN SQ SCH (21:04)
[2019-01-27] MEDS: METOPROLOL TARTRATE 25 MG TAB PO SCH (21:05)
[2019-01-27] MEDS: FINASTERIDE 5 MG TAB PO SCH (21:08)
[2019-01-28] MEDS: LEVOTHYROXINE SODIUM 112 MCG TABLET PO SCH (05:12)
[2019-01-28 05:53] LABS: Hematocrit (blood only) 34.7 % (42-52); Hemoglobin 11.9 g/dL (14.0-18.0); Mean Corpuscular Hemoglobin 30.4 pg (25-34); Mean Corpuscular Hgb Conc 34.3 g/dL (32-36); Mean Corpuscular Volume 88.7 fL (80-100); RDW Coefficient of Variation 14.2 % (11.5-14.5); Red Blood Count 3.91 M/uL (4.7-6.1)
[2019-01-28 05:56] LABS: Estimated Average Glucose 134 mg/dl; Hemoglobin A1C 6.3 % (4.5-5.6)
[2019-01-28 06:02] LABS: Mean Platelet Volume 9.3 fL (7.4-10.4); Platelet Count 81 K/uL (130-400)
[2019-01-28 06:18] LABS: Basophils # (auto) 0.01 K/uL (0-0.2); Basophils % (auto) 0.1 %; Eosinophils % (auto) 1.2 %; Immature Granulocytes # (auto) 0.02 K/uL (0.00-0.02); Immature Granulocytes % (auto) 0.2 %; Lymphocytes # (auto) 2.57 K/uL (1.2-3.4); Lymphocytes % (auto) 30.6 %; Monocytes # (auto) 0.88 K/uL (0.11-0.59); Monocytes % (auto) 10.5 %; Neutrophils # (auto) 4.82 K/uL (1.4-6.5); Neutrophils % (auto) 57.4 %; RBC Morphology Unremarkable
[2019-01-28 06:20] LABS: BUN Creatinine Ratio 16.9 (10-20); Calcium 8.8 mg/dl (8.5-10.1); Creatinine Clr Calc Pharmacy 34.4 ml/min; Est GFR (African American) 59.2; Est GFR (Non-African American) 51.1
[2019-01-28] MEDS: SIMETHICONE 80 MG CHEW PO SCH ×4 (08:29→20:31)
[2019-01-28] MEDS: LACTOBACILLUS ACIDOPHILUS (FLORANEX) TAB PO SCH (08:29)
[2019-01-28] MEDS: ASPIRIN 81 MG ECTAB PO SCH (08:29)
[2019-01-28] MEDS: DICYCLOMINE HCL 10 MG CAP PO SCH ×3 (08:29→15:53)
[2019-01-28] MEDS: INSULIN ASPART 100 UNITS/ML 3 ML PEN SC SCH ×4 (08:45→20:28)
--- NOTE | 2019-01-28 11:27 | Electroencephalogram ---
EEG Procedure Note Date of Service January 28, 2019 Start / End Times Start Time: 0800 End Time: 0830 Referring Physician Seth Figueroa MD History Syncope possible seizure activity Home Medication List Home Medications Medication Instructions Recorded Confirmed Type acetaminophen [Tylenol Extra 500 mg PO QID PRN 07/10/18 01/26/19 History Strength] insulin glargine [Lantus U-100 8 unit SUBCUT HS 07/10/18 01/26/19 History Insulin] insulin lispro [Humalog KwikPen 0 unit SUBCUT AC PRN 07/10/18 01/26/19 History Insulin] metoprolol tartrate 12.5 mg PO HS 07/10/18 01/26/19 History simethicone [Gas-X Extra Strength] 125 mg PO ACHS 07/10/18 01/26/19 History dicyclomine 10 mg PO AC 01/26/19 01/26/19 History finasteride 5 mg PO HS 01/26/19 01/26/19 History lactobacillus combination no.4 3,000 mmu cells PO UD 01/26/19 01/26/19 History [Probiotic] levothyroxine 112 mcg PO QAM 01/26/19 01/26/19 History potassium chloride 20 meq PO DAILY PRN 01/26/19 01/26/19 History tamsulosin 0.4 mg PO QAM 01/26/19 01/26/19 History Inpatient Medication List [facility] Stop: 02/26/19 08:59 Last Admin: 01/28/19 08:29 Dose: 81 mg Documented by: [id number] Admin: 01/27/19 07:59 Dose: 81 mg Documented by: [id number] Dicyclomine HCl (Bentyl) 10 mg PO AC [facility] Stop: 02/26/19 07:29 Last Admin: 01/28/19 08:29 Dose: 10 mg Documented by: [id number] Admin: 01/27/19 17:18 Dose: 10 mg Documented by: [id number] Admin: 01/27/19 11:17 Dose: 10 mg Documented by: [id number] Admin: 01/27/19 07:59 Dose: 10 mg Documented by: [id number] Finasteride (Proscar) 5 mg PO [facility] Stop: 02/26/19 20:59 Last Admin: 01/27/19 21:08 Dose: 5 mg Documented by: [id number] Gadobutrol (Gadavist 65ml) 5 ml IV ONCE PRN PRN Reason: Interaction Checking Stop: 01/31/19 09:53 Last Admin: 01/27/19 09:54 Dose: 5 ml Documented by: [id number] Insulin Aspart (Novolog Flexpen) 0 units SC ACHS [facility] Stop: 02/26/19 07:29 Last Admin: 01/28/19 08:45 Dose: 2 units Documented by: [id number] Cosigned by: [id number] Admin: 01/27/19 21:07 Dose: Not Given Documented by: [id number] Admin: 01/27/19 17:15 Dose: 5 units Documented by: [id number] Cosigned by: [id number] Admin: 01/27/19 12:00 Dose: 4 units Documented by: [id number] Cosigned by: [id number] Admin: 01/27/19 08:03 Dose: 1 units Documented by: [id number] Cosigned by: [id number] Insulin Glargine (Lantus Solostar Pen) 8 units SQ [facility] Stop: 02/26/19 20:59 Last Admin: 01/27/19 21:04 Dose: 8 units Documented by: [id number] Cosigned by: [id number] Lactobacillus Acidophilus (Floranex) 2 tab PO QAM [facility] Stop: 02/26/19 08:59 Last Admin: 01/28/19 08:29 Dose: 2 tab Documented by: [id number] Admin: 01/27/19 07:59 Dose: 2 tab Documented by: [id number] Levothyroxine Sodium (Synthroid) 112 mcg PO DAILYBB [facility] Stop: 02/26/19 06:29 Last Admin: 01/28/19 05:12 Dose: 112 mcg Documented by: [id number] Admin: 01/27/19 07:07 Dose: Not Given Documented by: [id number] Metoprolol Tartrate (Lopressor) 12.5 mg PO HS [facility] Stop: 02/26/19 20:59 Last Admin: 01/27/19 21:05 Dose: 12.5 mg Documented by: [id number] Simethicone (Mylicon) 120 mg PO ACHS [facility] Stop: 02/26/19 07:29 Last Admin: 01/28/19 08:29 Dose: 120 mg Documented by: [id number] Admin: 01/27/19 21:06 Dose: 120 mg Documented by: [id number] Admin: 01/27/19 17:17 Dose: 120 mg Documented by: [id number] Admin: 01/27/19 11:17 Dose: 120 mg Documented by: [id number] Admin: 01/27/19 07:59 Dose: 120 mg Documented by: [id number] Tamsulosin HCl (Flomax) 0.4 mg PO QAM [facility] Stop: 02/26/19 08:59 Last Admin: 01/27/19 10:45 Dose: Not Given Documented by: [id number] Discontinued Medications Hydromorphone HCl (Dilaudid) 0.25 mg IV NOW ONE Stop: 01/27/19 11:49 Last Admin: 01/27/19 12:03 Dose: 0.25 mg Documented by: [id number] Sodium Chloride (Nss 1000ml) 1,000 mls @ 50 mls/hr IV .Q20H [facility] Stop: 02/25/19 20:29 Last Infusion: 01/27/19 00:51 Dose: 0 mls/hr Documented by: [id number] Admin: 01/26/19 20:41 Dose: 50 mls/hr Documented by: [id number] Enalaprilat 0.3125 mg/ Syringe 9.75 mls @ 2 mls/min IV NOW ONE Stop: 01/27/19 12:04 Last Admin: 01/27/19 12:38 Dose: 2 mls/min Documented by: [id number] Description This is a 21 electrode EEG with a single channel dedicated to limited EKG. The electrodes were placed in accordance with the International 10-20 system. This EEG was performed as a bedside recording and is of excellent technical quality. Simultaneous video analysis of patient movement and behavior was obtained. Photic stimulation was performed. During wakefulness there is evidence for normal-appearing background rhythm in the alpha range of up to 9 to 10 Hz maximum frequency which is maximum posterior head regions bilaterally symmetrical Mid frequency moderate voltage theta activity is seen over the central regions in a symmetrical fashion Beta activity seen bifrontally Photic stimulation provokes a modest driving response without a photoparoxysmal or photo myogenic component No time during the waking tracing is evidence for potentially epileptogenic activity Interpretation Is a normal EEG during wakefulness without evidence for potentially epileptogenic activity or for a focal or generalized encephalopathy Clinical Correlation Normal EEG during wakefulness does not necessarily exclude seizure activity and clinical correlation is required
[2019-01-28] MEDS: TAMSULOSIN HCL 0.4 MG CAP PO SCH (12:08)
--- NOTE | 2019-01-28 15:30 | Communication Note ---
Date of Service: January 28, 2019 I saw Mr. Santos De Dios today in the company of his and note that he has had no further events of significant abdominal pain or syncope and certainly no seizure-like activity is been reported Exam remains essentially normal from a neurologic point of view The EEG shows no evidence for significant focal or generalized encephalopathy and no evidence for potentially epileptogenic activity I did review the outpatient MRI scans of the thoracic and cervical spine which have been done over the past year and I am pleased to state that there is no evidence for a significant thoracic radiculopathy or a process of the cervical cord that could have produced a falsely localized left abdominal pain syndrome. Apparently is been a question of adding Neurontin to his pain medication regimen in addition to the Bentyl that he takes [id number] 3 times a day prior to each meal and I certainly have no objections to this but I am not optimistic is going to offer a lot of additional benefit. If the medication is started I would certainly suggest a low dose of 100 mg 3 times a day and build up as per gastroenterology. At this point neurology is going to sign off this was not a seizure we have no evidence for potentially epileptogenic activity or significant structural disease involving the brain and there is no justification for anticonvulsant therapy. That having been said there is no contraindication to using gabapentin and low- dose for this man's pain even though it is an anticonvulsant Seth Figueroa MD
[2019-01-28] MEDS: ACETAMINOPHEN 325 MG TAB PO PRN (16:42)
[2019-01-28] MEDS: INSULIN GLARGINE SOLOSTAR 100 UNITS/ML 3 ML PEN SQ SCH (20:24)
[2019-01-28] MEDS: FINASTERIDE 5 MG TAB PO SCH (20:31)
[2019-01-28] MEDS: TRAMADOL HCL 50 MG TABLET PO PRN (20:32)
[2019-01-28] MEDS: METOPROLOL TARTRATE 25 MG TAB PO SCH (20:35)
--- NOTE | 2019-01-28 23:02 | Hospitalist Progress Note ---
Date of Service January 28, 2019 Assessment & Plan (1) Syncope: Syncope (Acute) Episode of syncope day of admission associated with abdominal pain. Neuroimaging per CT and MRI showed chronic changes. Seen in consultation by Neuro. Probable vasovagal episode. EEG negative. Abdominal pain Chronic problem, etiology uncertain. Has been evaluated by GI. Plain films show nonspecific gas, no apparent obstruction. Continue dicyclomine AC. Review old records. Aortic valve replaced (Chronic) History of endocarditis with cardioemboli. Afebrile. No leukocytosis. Blood culture drawn this morning. HTN (hypertension) (Chronic) Continue metoprolol. reports that dose recently decreased due to relatively low BP's. Chronic kidney disease (Chronic) Creatinine = 1.38. Follow. DM type 2 FBS = 125. Continue insulin per protocol. Hypothyroidism (Chronic) Continue levothyroxine. AML (acute myeloid leukemia) (Chronic) Management per Hematology. THROMBOCYTOPENIA Chronic thrombocytopenia. Platelet count today = 81,000. VTE prophylaxis No anticoagulants due to thrombocytopenia. SCDs ordered. Ambulate. Disposition Anticipated discharge to home. Medical follow-up with Dr. Peña. Subjective Recheck for multiple problems. Patient seen in their room around 1530. visiting. Feels better. No further episodes of syncope. Intermittent abdominal pain same as baseline. No nausea, vomiting, diarrhea, melena, hematochezia. Telemetry data reviewed- intermittent tachycardia, but usually in SR in 70's. Review of Systems: Constitutional- no fever. Cardiac- no chest pain. Pulmonary- no cough or SOB. GI- as noted above. - no urinary symptoms. Otherwise, as noted above. Physical Exam Constitutional: no acute distress Eyes: + anicteric sclerae Respiratory: no respiratory distress Auscultation: lungs clear to auscultation bilaterally Cardiovascular: Rate/Rhythm: regular rate and regular rhythm Heart Sounds: no gallop Vessels: no JVD Extremities: no calf tenderness and no edema Gastrointestinal (Abdomen): Inspection/Auscultation: + abdomen distended (slightly) Percussion/Palpation: + abdomen tender (diffuse, moderate) and abdomen soft Musculoskeletal: Extremities: strength 5/5 throughout; no cyanosis Skin: no rashes, warm and dry Neurologic: + CN's not intact (chronic right facial palsy) Psychiatric: Orientation: alert Results & Data Vital Signs (Past 12 Hours) Vital Signs Temp Pulse Pulse Resp BP Pulse Ox 01/28/19 19:10 37.3 C 84 20 118/74 97 01/28/19 16:00 65 01/28/19 15:19 37.7 C H 71 19 193/97 H 98 01/28/19 11:06 36.9 C 74 18 141/86 H 98
[2019-01-29] MEDS: ACETAMINOPHEN 325 MG TAB PO PRN (00:05)
[2019-01-29] MEDS ORDERED: cefTRIAXone SODIUM 1,000 MG in DEXTROSE 5% 50 ML IV SCH (01:30)
[2019-01-29 06:11] LABS: Hematocrit (blood only) 35.4 % (42-52); Mean Corpuscular Hemoglobin 30.4 pg (25-34); Mean Corpuscular Hgb Conc 33.9 g/dL (32-36); Mean Corpuscular Volume 89.6 fL (80-100); RDW Coefficient of Variation 14.1 % (11.5-14.5); RDW Standard Deviation 46.9 fL (36.4-46.3); Red Blood Count 3.95 M/uL (4.7-6.1); White Blood Count 12.87 K/uL (4.8-10.8)
[2019-01-29 06:24] LABS: Mean Platelet Volume 8.8 fL (7.4-10.4); Platelet Count 81 K/uL (130-400)
[2019-01-29] MEDS: LEVOTHYROXINE SODIUM 112 MCG TABLET PO SCH (06:32)
[2019-01-29] MEDS: DICYCLOMINE HCL 10 MG CAP PO SCH ×3 (06:32→17:08)
[2019-01-29] MEDS: SIMETHICONE 80 MG CHEW PO SCH ×4 (06:32→22:05)
[2019-01-29 06:39] LABS: Basophils # (auto) 0.01 K/uL (0-0.2); Basophils % (auto) 0.1 %; Eosinophils # (auto) 0.01 K/uL (0-0.5); Eosinophils % (auto) 0.1 %; Immature Granulocytes # (auto) 0.03 K/uL (0.00-0.02); Immature Granulocytes % (auto) 0.2 %; Lymphocytes # (auto) 2.87 K/uL (1.2-3.4); Lymphocytes % (auto) 22.3 %; Monocytes % (auto) 12.4 %; Neutrophils # (auto) 8.35 K/uL (1.4-6.5); Neutrophils % (auto) 64.9 %
[2019-01-29 06:46] LABS: BUN Creatinine Ratio 15.2 (10-20); Calcium 8.8 mg/dl (8.5-10.1); Creatinine Clr Calc Pharmacy 20.7 ml/min; Est GFR (African American) 32.1; Est GFR (Non-African American) 27.7; Potassium 4.2 mmol/L (3.5-5.1)
[2019-01-29] MEDS: INSULIN ASPART 100 UNITS/ML 3 ML PEN SC SCH ×4 (08:47→22:10)
[2019-01-29] MEDS: TAMSULOSIN HCL 0.4 MG CAP PO SCH (08:50)
[2019-01-29] MEDS: ASPIRIN 81 MG ECTAB PO SCH (08:50)
[2019-01-29] MEDS: LACTOBACILLUS ACIDOPHILUS (FLORANEX) TAB PO SCH (08:51)
[2019-01-29 08:54] LABS: Appearance Urine Turbid (Clear); Bacteria Urine Automated 1+ (Negative); Bilirubin Urine Negative (Negative); Blood Urine 2+ (Negative); Color Urine Yellow; Epithelial Cell Urine Auto 0-5 /lpf (0-5); Glucose Urine UA Negative (Negative); Ketones Urine Negative (Negative); Leukocyte Esterase Urine 3+ (Negative); Nitrite Urine Positive (Negative); Specific Gravity Urine 1.018 (1.000-1.030); Urobilinogen Urine Negative (Negative); WBC Urine Automated >30 /hpf (0-5); pH Urine >= 9.0 (4.5-7.5)
[2019-01-29 08:56] LABS: Protein Urine 2+ (Negative)
[2019-01-29] MEDS: TRAMADOL HCL 50 MG TABLET PO PRN (11:07)
[2019-01-29] MEDS ORDERED: LACTATED RINGER'S 1,000 ML IV SCH ×2 (15:15→17:00)
--- NOTE | 2019-01-29 16:02 | CT Scan Report ---
CT abd pelvis wo con CT DOSE: 370.86 mGycm HISTORY: Infection bacteremia, probable urinary source TECHNIQUE: Multiaxial CT images of the abdomen and pelvis were performed without contrast. A dose lo wering technique was utilized adhering to the principles of ALARA. COMPARISON STUDY: 07/02/2018 FINDINGS: Lung bases are clear. Liver spleen and pancreas are unremarkable. Several small gallstones. Left kidney is negative for hydronephrosis. Interval development of right renal hydronephrosis and proximal right ureteral distention. This appea rs to be secondary to a 6 mm obstructing proximal right ureteral calculus. Moderate right perinephric infiltrative change. 5 mm nonobstructing calcification mid pole right kidn ey. Nonobstructive bowel pattern. Significant prostatic enlargement. Bladder is midline. No free fluid wi thin the pelvic cul-de-sac. Degenerative change of bony structures unchanged. The paravertebral soft tissue prominence proceeded described is not appreciated currently. IMPRESSION: 1. 6 mm obstructing calculus proximal right ureter. 2. Right renal hydronephrosis and proximal right ureteral dilatation. 3. Moderate right perinephric fat stranding 4. Nonobstructive bowel pattern. 5. Considerable prostate enlargement unchanged from the prior study. The above report was generated using voice recognition software. It may contain grammatical, syntax or spelling errors. Electronically signed by: Pepe Bardales M.D. 01/29/2019 4:01 PM
[2019-01-29] MEDS ORDERED: ACETAMINOPHEN 1000 MG/100 ML IV IV PRN (16:54)
[2019-01-29] MEDS ORDERED: PIPERACILL/TAZOBAC CONSULT ACTIVE PRN (16:58)
[2019-01-29] MEDS ORDERED: PIPERACILLIN/TAZOBACTAM 3.375 GM in DEXTROSE 5% 100 ML IV ONE (17:15)
--- NOTE | 2019-01-29 17:34 | Hospitalist Progress Note ---
Date of Service January 29, 2019 Assessment & Plan (1) Syncope: Gram negative bacteremia / sepsis 2/2 blood cultures from morning of 01/28 growing gram negative bacilli. UA indicates probable UTI. Chronic abdominal pain, worse day of admission, but no flank pain per se, dysuria, or hematuria. Received IV ceftriaxone when preliminary blood culture results called. CT abd & pelvis this after noon showed obstructing right ureteral calculus with hydro. Spiking temp this evening. Management of ureteral calculus as noted below. IV fluids. IV piperacillin / tazobactam for broader gram negative coverage. Check serum lactate. Not hypotensive- monitor for hemodynamic instability. Right ureteral calculus Sepsis from obstructing right proximal ureteral calculus. Management of infection as discussed above. Urology consulted for stent placement. Acute kidney injury Syncope (Acute) Episode of syncope day of admission associated with abdominal pain. Neuroimaging per CT and MRI showed chronic changes. Seen in consultation by Neuro. Probable vasovagal episode. EEG negative. Aortic valve replaced (Chronic) History of endocarditis with cardioemboli. Afebrile. No leukocytosis. Blood culture drawn with results as noted above. Doubt endocarditis, but will check echo when status permits. HTN (hypertension) (Chronic) Continue metoprolol with hold parameters. reports that dose recently decreased due to relatively low BP's. Acute kidney disease / chronic kidney disease (Chronic) Creatinine 1.22 at time of admission, now 2.29. FISH secondary to sepsis +/- obstructive uropathy. management of sepsis and ureteral calculus as discussed above. IV fluids. Follow. DM type 2 Continue insulin per protocol. Hypothyroidism (Chronic) Continue levothyroxine. AML (acute myeloid leukemia) (Chronic) Management per Hematology. THROMBOCYTOPENIA Chronic thrombocytopenia. Platelet count today = 81,000. VTE prophylaxis No anticoagulants due to thrombocytopenia. SCDs ordered. Ambulate. Disposition Anticipated discharge to home. Medical follow-up with Dr. Peña. Subjective Recheck for multiple problems. Patient seen in their room around 1020. visiting. Blood cultures were drawn yesterday morning because of history of endocarditis. (He had been afebrile.) Spiked temp last evening. Blood cultures were reported last night as growing gram negative rods. Physician on duty ordered UA, urine culture, and IV ceftriaxone. Pruden well this morning at time of initial assessment by the undersigned. Temp down. No chest pain. No cough or SOB. Chronic intermittent abdominal pain, similar to usual symptoms. No nausea, vomiting, diarrhea,. No dysuria, hematuria, flank pain. CT abdomen + pelvis ordered in light of gram negative bacteremia and apparent UTI and demonstrated right proximal ureteral calculus with hydronephrosis. Patient spiked temp this afternoon and developed rigors. Spoke with Urology. Arrangements being made for ureteral stent placement. Review of Systems: As noted above. Physical Exam Physical Exam: (initial exam at 10:20) Constitutional: no acute distress Eyes: + anicteric sclerae Respiratory: no respiratory distress Auscultation: lungs clear to auscultation bilaterally Cardiovascular: Rate/Rhythm: regular rate and regular rhythm Heart Sounds: no gallop Vessels: no JVD Extremities: no calf tenderness and no edema Gastrointestinal (Abdomen): Inspection/Auscultation: abdomen not distended Percussion/Palpation: + abdomen tender (mild tenderness, no rebound or guarding) and abdomen soft Musculoskeletal: Extremities: strength 5/5 throughout; no cyanosis Skin: no rashes, warm and dry Neurologic: + CN's not intact (chronic right facial palsy) Psychiatric: Orientation: alert Results & Data Vital Signs (Past 12 Hours) Vital Signs Temp Pulse Pulse Resp BP BP Pulse Ox 01/29/19 17:03 219/98 H 01/29/19 16:55 39.4 C H 01/29/19 15:24 37.5 C 81 16 114/76 96 01/29/19 11:39 168/87 H 01/29/19 10:55 36.7 C 67 16 172/103 H 98 01/29/19 07:18 60 01/29/19 07:10 36.4 C L 59 L 16 115/75 98 Laboratory Results 01/29/19 05:58 01/29/19 05:58 Microbiology 01/28/19 07:01 Blood Aerobic Blood Culture - Preliminary Gram negative bacilli 01/28/19 07:01 Blood Anaerobic Blood Culture - Preliminary Gram negative bacilli 01/28/19 07:11 Blood Anaerobic Blood Culture - Preliminary Gram negative bacilli Diagnostic Findings CT ABDOMEN & PELVIS IMPRESSION: 1. 6 mm obstructing calculus proximal right ureter. 2. Right renal hydronephrosis and proximal right ureteral dilatation. 3. Moderate right perinephric fat stranding 4. Nonobstructive bowel pattern. 5. Considerable prostate enlargement unchanged from the prior study. The above report was generated using voice recognition software. It may contain grammatical, syntax or spelling errors. Electronically signed by: Pepe Bardales M.D. 01/29/2019 4:01 PM
[2019-01-29] MEDS ORDERED: fentaNYL citrate 100 MCG/2 ML VIAL ONE (18:01)
[2019-01-29] MEDS ORDERED: LIDOCAINE HCL 2% 2 ML VIAL/AMP(20MG/ML) INFIL ONE (18:01)
[2019-01-29] MEDS ORDERED: PROPOFOL IV EMULSION 10 MG/ML 20 ML VIAL IV ONE (18:01)
[2019-01-29] MEDS ORDERED: DEXAMETHASONE SOD INJ 4 MG/ML VIAL ONE (18:01)
[2019-01-29] MEDS ORDERED: ONDANSETRON INJ 2 MG/ML 2 ML VIAL ONE (18:01)
[2019-01-29] MEDS ORDERED: ATROPINE SULFATE 0.1 MG/ML 10ML SYR IV PRN (18:05)
[2019-01-29] MEDS ORDERED: fentaNYL citrate 100 MCG/2 ML VIAL IV PRN (18:05)
[2019-01-29] MEDS ORDERED: ONDANSETRON INJ 2 MG/ML 2 ML VIAL IV PRN (18:05)
[2019-01-29] MEDS ORDERED: ePHEDrine sulfate 50 MG/ML AMP IV PRN (18:05)
--- NOTE | 2019-01-29 18:05 | Anesthesiology Consultation ---
Date of Service January 29, 2019 Sepsis FISH IDDM Hypothyroidism AML CVA Assessment & Plan (1) Encounter for pre-operative examination: Chart Review Chart Review: Acceptable Risk for Surgery and Patient NOT seen in Pre Admission Testing Consults Requested none ASA [id number] Proposed Anesthesia Anesthesia Type: General (with RSI) Risk / Benefits Reviewed With: PT / POA / Parent / Guardian, Accepts Plan and Informed Consent Obtained History Surgery Operation Date: 01/29/19 13:40 Proposed Procedures p Right Stent under IV Sedation, Cystoscopy - Michelle Serna MD Height/Weight Height: 5 ft 4 in Weight: 49.4 kg Allergies Allergy/AdvReac Type Severity Reaction Status Date / Time No Known Allergies Allergy Verified 01/26/19 22:44 Medications Home Medications Medication Instructions Recorded Confirmed Last Taken acetaminophen [Tylenol Extra 500 mg PO QID PRN 07/10/18 01/26/19 01/26/19 09:00 Strength] insulin glargine [Lantus U-100 8 unit SUBCUT HS 07/10/18 01/26/19 Unknown Insulin] insulin lispro [Humalog KwikPen 0 unit SUBCUT AC PRN 07/10/18 01/26/19 Unknown Insulin] metoprolol tartrate 12.5 mg PO HS 07/10/18 01/26/19 01/25/19 21:00 simethicone [Gas-X Extra Strength] 125 mg PO ACHS 07/10/18 01/26/19 Unknown dicyclomine 10 mg PO AC 01/26/19 01/26/19 Unknown finasteride 5 mg PO HS 01/26/19 01/26/19 01/25/19 21:00 lactobacillus combination no.4 3,000 mmu cells PO UD 01/26/19 01/26/19 01/26/19 09:00 [Probiotic] levothyroxine 112 mcg PO QAM 01/26/19 01/26/19 01/26/19 09:00 potassium chloride 20 meq PO DAILY PRN 01/26/19 01/26/19 Unknown tamsulosin 0.4 mg PO QAM 01/26/19 01/26/19 01/26/19 09:00 Active Medications Generic Name Dose Route Start Last Admin Trade Name Freq PRN Reason Stop Dose Admin Acetaminophen 650 mg 01/27/19 00:46 01/29/19 00:05 Tylenol PO 02/26/19 00:45 650 mg Q4H PRN Administration Pain or Fever Aspirin 81 mg 01/27/19 09:00 01/29/19 08:50 Ecotrin Ectab PO 02/26/19 08:59 81 mg QAM KASSANDRA Administration Dicyclomine HCl 10 mg 01/27/19 07:30 01/29/19 17:08 Bentyl PO 02/26/19 07:29 Not Given AC KASSANDRA Finasteride 5 mg 01/27/19 21:00 01/28/19 20:31 Proscar PO 02/26/19 20:59 5 mg HS KASSANDRA Administration Gadobutrol 5 ml 01/27/19 09:54 01/27/19 09:54 Gadavist 65ml IV 01/31/19 09:53 5 ml ONCE PRN Administration Interaction Checking Lactated Ringer's 1,000 mls @ 125 mls/hr 01/29/19 15:15 01/29/19 16:55 Lr IV 01/30/19 07:14 125 mls/hr .Q8H KASSANDRA Administration Insulin Aspart 0 units 01/27/19 07:30 01/29/19 17:40 Novolog Flexpen SC 02/26/19 07:29 Not Given ACHS KASSANDRA Insulin Glargine 8 units 01/27/19 21:00 01/28/19 20:24 Lantus Solostar Pen SQ 02/26/19 20:59 8 units HS KASSANDRA Administration Levothyroxine Sodium 112 mcg 01/27/19 06:30 01/29/19 06:32 Synthroid PO 02/26/19 06:29 112 mcg DAILYBB KASSANDRA Administration Metoprolol Tartrate 12.5 mg 01/27/19 21:00 01/28/19 20:35 Lopressor PO 02/26/19 20:59 12.5 mg HS KASSANDRA Administration Ondansetron HCl 4 mg 01/27/19 00:46 01/29/19 17:13 Zofran IV 02/26/19 00:45 4 mg Q6H PRN Administration Nausea Simethicone 120 mg 01/27/19 07:30 01/29/19 17:08 Mylicon PO 02/26/19 07:29 Not Given ACHS KASSANDRA Tamsulosin HCl 0.4 mg 01/27/19 09:00 01/29/19 08:50 Flomax PO 02/26/19 08:59 0.4 mg QAM KASSANDRA Administration Tramadol HCl 25 mg 01/28/19 17:36 01/29/19 11:07 Ultram PO 02/27/19 17:35 25 mg Q4H PRN Administration Pain NPO Date Last Intake of Fluids: 01/29/19 Time Last Intake of Fluids: 12:00 Date Last Intake of Solids: 01/29/19 Time Last Intake of Solids: 12:00 Past Medical History Medical History Chronic kidney disease (Chronic) Parotid tumor (Resolved) 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) HTN (hypertension) (Chronic) Hypothyroidism (Chronic) 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 Exercise / Class Metabolic Activity III < 4 Walking/Shop/Light housework Past Family History Family History Other Coronary heart disease Stroke Thyroid disorder Past Surgical History Surgical History S/P aortic valve replacement with bioprosthetic valve Aortic valve replaced (Chronic) H/o aortic stenosis s/p prosthetic valve replacement in 2012 H/O stem cell transplant (Chronic) [facility], September 2016 History of vascular access device INSERTION AND REMOVAL Past Anesthesia History No Hx of Anesthesia Complications and No Family Hx of Anesthesia Complications History of PONV No Hx of PONV and No Hx of Motion Sickness Social History Smoking Status: Never smoker Hx Alcohol Use: No Hx Substance Use: No Physical Exam Vital Signs Last Vital Signs Temp 39.5 C H 01/29/19 17:45 Pulse 130 H 01/29/19 17:45 Resp 18 01/29/19 17:45 BP 146/83 H 01/29/19 17:45 Pulse Ox 98 01/29/19 17:45 ENMT Mouth: no dentition abnormality Thyromental Distance: > or= 3.5 Finger Breadths Mallampati Class: II Neck normal visual inspection Respiratory normal respiratory effort Auscultation: lungs clear to auscultation bilaterally Cardiovascular Rate/Rhythm: regular rate and regular rhythm Psychiatric Orientation: alert Testing Laboratory Results 01/29/19 05:58 01/29/19 05:58 PT 10.3 Seconds (9.0-12.0) 01/26/19 20:28 INR 1.0 (0.9-1.1) 01/26/19 20:28 APTT 23.9 Seconds (21.0-31.0) 01/26/19 20:28 Hemoglobin A1c 6.3 % (4.5-5.6) H 01/27/19 05:56 Urine Color Yellow 01/29/19 07:55 Urine Appearance Turbid (Clear) A 01/29/19 07:55 Urine pH >= 9.0 (4.5-7.5) H 01/29/19 07:55 Ur Specific [place] 1.018 (1.000-1.030) 01/29/19 07:55 Urine Protein 2+ (Negative) H 01/29/19 07:55 Urine Glucose (UA) Negative (Negative) 01/29/19 07:55 Urine Ketones Negative (Negative) 01/29/19 07:55 Urine Nitrite Positive (Negative) A 01/29/19 07:55 Ur Leukocyte Esterase 3+ (Negative) H 01/29/19 07:55 Urine WBC (Auto) >30 /hpf (0-5) H 01/29/19 07:55 Urine RBC (Auto) 10-30 /hpf (0-4) H 01/29/19 07:55 U Hyaline Cast (Auto) 1-5 /lpf (0-5) 01/29/19 07:55 U Epithel Cells (Auto) 0-5 /lpf (0-5) 01/29/19 07:55 Urine Bacteria (Auto) 1+ (Negative) H 01/29/19 07:55 Blood Type O Negative 01/26/19 20:28 Antibody Screen NEGATIVE 01/26/19 20:28 01/28/19 07:01 Aerobic Blood Culture - Preliminary Blood Gram negative bacilli Anaerobic Blood Culture - Preliminary Gram negative bacilli 01/28/19 07:11 Anaerobic Blood Culture - Preliminary Blood Gram negative bacilli 01/29/19 01/29/19 01/29/19 16:28 11:45 07:24 POC Glucose 148 H 187 H 181 H
--- NOTE | 2019-01-29 18:07 | Urology Consultation ---
Date of Consultation January 29, 2019 Assessment & Plan (1) Right ureteral calculus: right ureteral stone upper ureter 4-5 mm maybe 2 of them plan cysto right stent prostate very large will be difficult to find UO had solids at noon will need to be GET for aspiration concern had ceftriaxone signed consent due to confusion from sepsis Present on Admission?: Yes History of Present Illness Reason for Consultation: right ureteral stones with sepsis Requesting Physician: Dr Meyer Attending Physician: Seth Meyer MD History of Present Illness I am asked to see pt for right upper ureeral stones and spesis. He was admitted with syncope and his infection did not develop until overnight last night. CT showed right upper ureteral stones and hydro. He developed rigors this mid day. he has had a solid lunch at about 12:30pm. He is on ceftriaxone iv abt. Blood cultures with gnr. He has been sseen in past for waldron and retention after various surgeries, most recently cardiac surgery November 2018. He passed avoid trial weeks later. He has a very large prostate and is on max medical therapy for bph. Allergies Allergy/AdvReac Type Severity Reaction Status Date / Time No Known Allergies Allergy Verified 01/26/19 22:44 Home Medications Home Medications Medication Instructions Recorded Confirmed Type acetaminophen [Tylenol Extra 500 mg PO QID PRN 07/10/18 01/26/19 History Strength] insulin glargine [Lantus U-100 8 unit SUBCUT HS 07/10/18 01/26/19 History Insulin] insulin lispro [Humalog KwikPen 0 unit SUBCUT AC PRN 07/10/18 01/26/19 History Insulin] metoprolol tartrate 12.5 mg PO HS 07/10/18 01/26/19 History simethicone [Gas-X Extra Strength] 125 mg PO ACHS 07/10/18 01/26/19 History dicyclomine 10 mg PO AC 01/26/19 01/26/19 History finasteride 5 mg PO HS 01/26/19 01/26/19 History lactobacillus combination no.4 3,000 mmu cells PO UD 01/26/19 01/26/19 History [Probiotic] levothyroxine 112 mcg PO QAM 01/26/19 01/26/19 History potassium chloride 20 meq PO DAILY PRN 01/26/19 01/26/19 History tamsulosin 0.4 mg PO QAM 01/26/19 01/26/19 History Patient History Medical History Chronic kidney disease (Chronic) Parotid tumor (Resolved) 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) HTN (hypertension) (Chronic) Hypothyroidism (Chronic) 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 Surgical History S/P aortic valve replacement with bioprosthetic valve Aortic valve replaced (Chronic) H/o aortic stenosis s/p prosthetic valve replacement in 2012 H/O stem cell transplant (Chronic) [facility], September 2016 History of vascular access device INSERTION AND REMOVAL Family History Other Coronary heart disease Stroke Thyroid disorder Social History Preferred Language: Romanian Communication Ability: Effective Search Specialist Required: No Beliefs That Will Affect Care: None marital status: Current Living Situation: Spouse current occupational status: retired Feels Safe at Home: Yes Safety Concerns: Feels Safe At This Time Smoking Status: Never smoker Second Hand Exposure: No ; Hx Alcohol Use: No Hx Substance Use: No Review of Systems Review of Systems: PMH- valve replacement endocarditis and septic embiolic stroke AML in remission Soc- m,arried retired, no tobacco or alcohol Fam Hx- not contributory for this issue ROS- + fevers, + chills, + weakness, + confusion, bowels fine, no seizures, + syncope Physical Exam Constitutional: + ill appearing, + thin, + frail appearing and + in distress Respiratory: normal respiratory effort, lungs clear to auscultation normal respiratory effort Cardiovascular: Rate/Rhythm: regular rate and + tachycardic Psychiatric: Orientation: alert and cooperative Apperance: + disheveled confused and restless Results & Data Vital Signs (Past 12 Hours) Vital Signs Temp Pulse Pulse Pulse Resp BP BP 01/29/19 17:45 39.5 C H 130 H 18 146/83 H 01/29/19 17:03 219/98 H 01/29/19 16:55 39.4 C H 01/29/19 15:24 37.5 C 81 16 114/76 01/29/19 11:39 168/87 H 01/29/19 10:55 36.7 C 67 16 172/103 H 01/29/19 07:18 60 01/29/19 07:10 36.4 C L 59 L 16 115/75 Pulse Ox 01/29/19 17:45 98 01/29/19 17:03 01/29/19 16:55 01/29/19 15:24 96 01/29/19 11:39 01/29/19 10:55 98 01/29/19 07:18 01/29/19 07:10 98
[2019-01-29] MEDS ORDERED: PHENYLEPHRINE 100MCG/ML 5ML SYR ONE (18:22)
[2019-01-29] MEDS ORDERED: SUCCINYLCHOLINE CHLORIDE 20 MG/ML 10 ML VIAL ONE (18:22)
[2019-01-29] MEDS ORDERED: PHENYLEPHRINE HCL 10 MG/ML VIAL ONE (18:48)
--- NOTE | 2019-01-29 19:49 | Fluoroscopy Report ---
FL KUB HISTORY: 73 years-old Male RIGHT CYSTO/STENT right-sided hydronephrosis. COMPARISON: CT abdomen and pelvis 01/29/2017 TECHNIQUE: One spot fluoroscopic image of the abdominal right upper quadrant was obtained utilizing 3 minutes 17 seconds fluoroscopy time FINDINGS: Proximal portion of a right ureteral stent is noted which appears to be in satisfactory positioning. The distal portion of the stent is not imaged. IMPRESSION: Fluoroscopic assistance as above. Please see procedural report for further details. The above report was generated using voice recognition software. It may contain grammatical, syntax o r spelling errors. Electronically signed by: Ruben Silva M.D. 01/29/2019 7:48 PM
--- NOTE | 2019-01-29 20:04 | Operative Report ---
Post Operative Report Pre & Post Diagnosis Operation Date: 01/29/19 13:40 Pre-Op Diagnosis: Right ureteral stones with sepsis Post-Op Diagnosis: Right ureteral stones with sepsis Procedure Operation Date: 01/29/19 13:40 Actual Procedures p Right Stent, Cystoscopy(Right) fulguration of prostate - Michelle Serna MD Surgeon Michelle Serna MD Project Intern none Estimated Blood Loss 100 Findings Consistent with Post-Op Diagnosis very large middle lobe and brisk bleeding from multiple surface vessels on prostate. severe J hooking of distal right ureter. Fluids 1200 Specimens none Drains 6 fr 26 centiemter double j stent Anesthesia Type General Complications none Disposition Accompanied Patient To Recovery: Yes Disposition: Recovery Room Indications sepsis with right upper ureteral stones and hydronephrosis. Description of Procedure Patient was given general ET anesthesia due to 6.5 hour NPO status and placed in lithotomy position. His genitals were prepped and draped in sterile fashion. Time out held with team. I placed a 18 fr flexible cystoscope carefully into the bladder. The urethra is unremarkable. The prostate is very large with an extremely large middle lobe. I cannot pass the scope behind the middle lobe to find the UOs. I then switched to a 21 fr rigid cystoscope. Again the middle lobe is blocking site of the trigone. Pressure on the prostate has caused very brisk bleeding obscuring vision. I then placed a 26 fr resectoscope and used a thick loop to cauterize the many bleeding areas. This took over 30 minutes. Once bleeding was controlled I placed a 22.5 fr rigid cystoscope and took one last look with the 70 degree lens. I could see the slit shaped right UO and cannulated it with a road runner wire. As expected he has sharp J hooking of the ureter. I steadily advanced road runner and 5 fr up the ureter around the J hook with steady pressure. This was difficult. Once the wire passed to the kidney and the j Hook straightened I carefully guided the road runner passed the upper ureteral stones with some mild resistance and into the kidney. I advanced the 5 fr and then switched to a stiff wire. I placed a 26 centimeter 6 Fr double J stent very carefully, ensuring a coil in the kidney and a coil in the bladder. There is brisk efflux after placement. I left bladder empty by placing a 22 fr coude waldron with 10mL in the balloon. I concluded case. He transferred to recovery under my escort, in stable condition. he needed some low dose pressors during case but not in recovery. Plan: To ICU overnight keep stent until stabilized. iv antibiotics zosyn now then tailor once sensitivities are back. ASA 4e dirty case 3 minutes 15 seconds fluoro zosyn antibiotic prior to case I attest to the content of the Intraoperative Record and any orders documented therein. Any exceptions are noted below.
--- NOTE | 2019-01-29 20:11 | Anesthesiology Progress Note ---
Date of Service January 29, 2019 Anesthesia Post Procedure Vital Signs Vital Signs: Temp Pulse Pulse Pulse Resp BP BP 01/29/19 20:00 113 H 17 103/74 01/29/19 19:50 113 H 18 114/75 01/29/19 19:44 36.2 C L 118 H 18 129/77 01/29/19 17:45 39.5 C H 130 H 18 146/83 H 01/29/19 17:03 219/98 H 01/29/19 16:55 39.4 C H 01/29/19 15:24 37.5 C 81 16 114/76 01/29/19 15:00 79 01/29/19 11:39 168/87 H 01/29/19 10:55 36.7 C 67 16 172/103 H 01/29/19 07:18 60 01/29/19 07:10 36.4 C L 59 L 16 115/75 01/29/19 03:28 37.0 C 64 20 110/68 01/29/19 01:27 37.8 C H 01/28/19 23:54 39.5 C H 78 17 150/76 H Pulse Ox 01/29/19 20:00 95 01/29/19 19:50 95 01/29/19 19:44 97 01/29/19 17:45 98 01/29/19 17:03 01/29/19 16:55 01/29/19 15:24 96 01/29/19 15:00 01/29/19 11:39 01/29/19 10:55 98 01/29/19 07:18 01/29/19 07:10 98 01/29/19 03:28 98 01/29/19 01:27 01/28/19 23:54 96 Pain Intensity Abdomen: Pain Intensity: 6 Transfer of Care Handoff Completed per policy Notes Mental Status: alert / awake / arousable Patient Amnestic to Procedure: Yes Nausea / Vomiting: adequately controlled Pain: adequately controlled Airway Patency, RR, SpO2: stable & adequate BP & HR: stable & adequate Hydration State: stable & adequate Anesthetic Complications: no major complications apparent Notes: Patient septic and at a fluid deficit preoperatively. He did require a phenylephrine drip and fluid load intraoperatively but was holding adequate BP without any pressors in the post op period. Will be ICU obs overnight per Dr Serna request.
[2019-01-29] MEDS ORDERED: NORMOSOL-R 1,000 ML IV ONE (21:34)
[2019-01-29 21:57] LABS: Hematocrit (blood only) 29.7 % (42-52); Hemoglobin 10.3 g/dL (14.0-18.0); Mean Corpuscular Hemoglobin 30.9 pg (25-34); Mean Corpuscular Volume 89.2 fL (80-100); RDW Coefficient of Variation 14.4 % (11.5-14.5); RDW Standard Deviation 47.4 fL (36.4-46.3); Red Blood Count 3.33 M/uL (4.7-6.1); White Blood Count 7.19 K/uL (4.8-10.8)
[2019-01-29] MEDS ORDERED: PIPERACILLIN/TAZOBACTAM 3.375 GM in DEXTROSE 5% 100 ML IV SCH (22:00)
[2019-01-29 22:02] LABS: Mean Corpuscular Hgb Conc 34.7 g/dL (32-36); Mean Platelet Volume 9.3 fL (7.4-10.4); Platelet Count 51 K/uL (130-400)
[2019-01-29] MEDS ORDERED: ICU PROTOCOL FOR HYPERGLYCEMIA PRN (22:02)
--- NOTE | 2019-01-29 22:02 | XRay Report ---
XR chest 1V portable HISTORY: 73 years-old Male fever acute fever COMPARISON: CT abdomen and pelvis of same day, acute abdominal series radiographs 01/27/2019, CTA ches t 10/30/2017. TECHNIQUE: Portable AP view of the chest FINDINGS: Cardiomediastinal and hilar silhouettes appear unchanged. Prior median sternotomy with prosthetic aor tic valve. Chronic interstitial coarsening is again noted. Subsegmental bibasilar opacities have slig htly progressed from 01/27/2019. No pneumothorax, large pleural effusion or overt pulmonary edema. Deg enerative changes of the shoulders and spine. IMPRESSION: 1. Chronic interstitial coarsening. 2. Slight progression of bibasilar opacities from 01/27/2019 suggestive of probable atelectasis. The above report was generated using voice recognition software. It may contain grammatical, syntax o r spelling errors. Electronically signed by: Ruben Silva M.D. 01/29/2019 10:01 PM
[2019-01-29] MEDS: METOPROLOL TARTRATE 25 MG TAB PO SCH (22:04)
[2019-01-29] MEDS: INSULIN GLARGINE SOLOSTAR 100 UNITS/ML 3 ML PEN SQ SCH (22:09)
[2019-01-29] MEDS: FINASTERIDE 5 MG TAB PO SCH (22:12)
--- NOTE | 2019-01-29 22:14 | Critical Care Consultation ---
Date of Consultation January 29, 2019 Assessment & Plan (1) Admitted to intensive care unit: Reason Critically Ill: 73-year-old male with comp gated past medical history status post emergent cystoscopy with RIGHT-sided ureteral stent placement in the setting of infected ureteral stone. Sepsis with hypotension responding to crystalloid boluses initially. Close monitoring for need for aggressive measures including vasopressors. NEURO - * CAM ICU: NEGATIVE * History of CVA with right-sided deficits. * Monitor closely for any changes. * Syncope/seizure: * Seizure ruled out throughout hospitalization. * Negative EEG. * Neurology has signed off at this point. * No concerning cardiogenic sources per previous evaluation. * Chronic abdominal pain: * Continue home medications as tolerated. CARDIAC/VASCULAR - * Hypotension: * In the setting of sepsis syndrome. * Continue with IV fluid resuscitation. * Progressed to pressors as needed. * Echo recently demonstrates LVH with EF of 60 to 65%. * Functioning bioprosthetic aortic valve. 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 * Recent echo without significant findings. * Hypertension: * Hold home medications in the setting of current hypotensive state. * EKG: NSR@91bpm. No ST/T-wave changes. QTc 467ms. * Monitor on telemetry. RESPIRATORY - * No history of pulmonary disease. * Postoperative chest x-ray demonstrates bibasilar atelectasis. * Encourage incentive spirometry. * Supplemental O2 as needed. GI/NUTRITION - * Diet: Heart healthy/DM 2 * Progress diet as tolerated. * Prophylaxis: Famotidine RENAL/LYTES - * CKD: * Monitor electrolytes closely. Replace as needed. * IVF: Normosol@100mL/hr - * Sepsis from urinary source and retained stone: * Source control status post cystoscopy with RIGHT ureteral stent placement. * Currently on Zosyn. * Monitor for any changes in urinary output or changes in urine consistency (i.e. worsening bloody output) * Osman in place - Strict I&Os. ENDO - * h/o DMII * BSGs per unit protocol. ISS --> gtt per unit policy. 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 * Currently not requiring treatment. * Chronic Thrombocytopenia: * Monitor closely for any sequela of bleeding. * Transfuse as needed/clinically indicated. ID - * Sepsis from Urinary Source w/ Retained RIGHT sided ureteral stone: * Source control via RIGHT ureteral stent placement. * Agree w/ Zosyn in the setting of Gram NEGATIVE bacteremia. * MRSA nares NEGATIVE - hold on Vanc. * Lactate elevated postoperatively - will trend. * ProCal 84.62 - repeat in AM. LINES/IV ACCESS - * PIVs x2 * Osman * Patient and verbally consent to emergent line placement and intubation if significant change in clinical course overnight. DVT PROPHYLAXIS - * Hold s/p cysto in the thrombocytopenic patient. * SCDs I have personally spent 45 minutes of critical care time in the direct management of this patient. This is a life/limb threatening event. This includes time spent evaluating patient, direct bedside care, chart review, placing orders, interpretation of diagnostic studies, discussion with consultants, patient, and family members, as well as other required patient management activities. This time is exclusive of all separately billable procedures, and teaching time and separate from and in addition to any other critical care service time. Thank you for allowing us to participate in the care of this patient. Please refer to my attending physician's documentation for any further recommendations. (2) Sepsis due to urinary tract infection: (3) Right ureteral calculus: (4) History of CVA (cerebrovascular accident): (5) Slurred speech: (6) Facial droop: (7) Syncope: (8) Discitis of lumbosacral region: (9) Abdominal pain: (10) S/P aortic valve replacement with bioprosthetic valve: (11) HTN (hypertension): (12) Hypothyroidism: (13) Hypotension: Supervising Physician Co-Signing Physician Notes I have personally evaluated and examined this patient. I agree with assessment and plan of Ness Bardales PA-C. History of Present Illness Attending Physician: Seth Meyer MD History of Present Illness Patient is a 73-year-old male with a significant past medical history of bioprosthetic aortic valve replacement performed in the setting of endocarditis. Through this course, the patient did throw emboli resulting in CVA. Additionally, the patient's course was complicated by AML status post bone marrow transplant comp gated by [id number] disease. He is with chronic thrombocytopenia. He is also with chronic abdominal pain. He remains with RIGHT-sided deficits from his CVA. He was admitted to this facility with syncope/seizure activity. Unremarkable work-up for syncope. EEG was unremarkable and on concerning for seizure event. His hospital course was uneventful until last evening when he developed fevers and rigors. These were successfully treated with acetaminophen, however he did have return of symptoms in the morning. Repeat blood cultures were obtained as was urinalysis and CT of the abdomen/pelvis. The patient was found to have proximal obstruction ureteral stones and concerns for UTI. Patient was taken emergently to the operating room for placement of ureteral stent. Patient did require vasopressor support intraoperatively. He was subsequently transferred to the ICU for continued monitoring. Patient currently on Zosyn for broad-spectrum coverage. He was found to be bacteremic with gram-negative rods x2. Upon arrival in the ICU, the patient is awake, alert, and oriented. He complains of some mild abdominal discomfort which he does not describe is new. He rates his discomfort a 5/10. He currently denies any headaches, dizziness, lightheadedness, visual disturbances, chest pain, palpitations, shortness of breath, pleuritic pain, nausea, vomiting, or extremity pain. He does have some slurred speech which the is present at bedside and reports that it is at baseline at this point. Allergies Allergy/AdvReac Type Severity Reaction Status Date / Time No Known Allergies Allergy Verified 01/26/19 22:44 Home Medications Home Medications Medication Instructions Recorded Confirmed Type acetaminophen [Tylenol Extra 500 mg PO QID PRN 07/10/18 01/26/19 History Strength] insulin glargine [Lantus U-100 8 unit SUBCUT HS 07/10/18 01/26/19 History Insulin] insulin lispro [Humalog KwikPen 0 unit SUBCUT AC PRN 07/10/18 01/26/19 History Insulin] metoprolol tartrate 12.5 mg PO HS 07/10/18 01/26/19 History simethicone [Gas-X Extra Strength] 125 mg PO ACHS 07/10/18 01/26/19 History dicyclomine 10 mg PO AC 01/26/19 01/26/19 History finasteride 5 mg PO HS 01/26/19 01/26/19 History lactobacillus combination no.4 3,000 mmu cells PO UD 01/26/19 01/26/19 History [Probiotic] levothyroxine 112 mcg PO QAM 01/26/19 01/26/19 History potassium chloride 20 meq PO DAILY PRN 01/26/19 01/26/19 History tamsulosin 0.4 mg PO QAM 01/26/19 01/26/19 History Patient History Medical History Chronic kidney disease (Chronic) Parotid tumor (Resolved) 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) HTN (hypertension) (Chronic) Hypothyroidism (Chronic) 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 Surgical History S/P aortic valve replacement with bioprosthetic valve Aortic valve replaced (Chronic) H/o aortic stenosis s/p prosthetic valve replacement in 2012 H/O stem cell transplant (Chronic) [facility], September 2016 History of vascular access device INSERTION AND REMOVAL Family History Other Coronary heart disease Stroke Thyroid disorder Social History Preferred Language: American Communication Ability: Effective Gardening Supervisor Required: No Beliefs That Will Affect Care: None marital status: Current Living Situation: Spouse current occupational status: retired Feels Safe at Home: Yes Smoking Status: Never smoker Second Hand Exposure: No ; Hx Alcohol Use: No Hx Substance Use: No Review of Systems Review of Systems: A complete 10 point review of systems was reviewed with the patient with pertinent positives and negatives as per history of present illness. All else were negative. Physical Exam Physical Exam: VITAL SIGNS - Vital signs and nursing notes were reviewed. GENERAL - 73-year-old male appearing his stated age who is in no acute distress. Slurred speech but communicates well with provider and answers questions appropriately. SKIN - Without rashes. HEAD - NC/AT. EYES - PERRL with EOMI bilaterally. Sclera anicteric. Palpebral conjunctiva pink and moist with no injection noted. EARS - No deformities of external structures noted on gross examination bilaterally. NOSE - Midline and without cyanosis. MOUTH/OROPHARYNX - Without perioral cyanosis. Buccal mucosa pink and moist and without leukoplakia. Tongue midline with equal elevation of palate bilaterally. NECK - Neck with FROM. Supple to palpation. No nuchal rigidity. LUNGS - Chest wall symmetric without accessory muscle use, intercostals retractions, or central cyanosis. Normal vesicular breath sounds CTA B/L. No w heezes, rales, or rhonchi appreciated. CARDIAC - RRR with S1/S2. No murmur, rubs, or gallops appreciated. ABDOMEN - Abdominal contour flat without pulsations or visible masses. BS normoactive all four quadrants. No tenderness, palpable masses, hepatosplenomegaly, or ascites noted. EXTREMITIES - No clubbing or peripheral cyanosis. No pretibial edema present. +3/5 radial and dorsalis pedis pulses palpated throughout. NEUROLOGIC - Cranial nerves II through XII grossly intact other than chronic RIGHT sided facial droop w/ slurred speech. Sensory intact to light touch throughout. PSYCH - A&Ox3 and cooperates fully with examiner. Pt is very pleasant and interacts well with examiner. Results & Data Vital Signs (Past 12 Hours) Vital Signs Temp Pulse Pulse Pulse Resp BP BP 01/29/19 20:31 112 H 14 94/68 L 01/29/19 20:27 36.6 C 110 H 22 102/71 01/29/19 20:10 36.5 C 105 H 17 01/29/19 20:00 113 H 17 01/29/19 19:50 113 H 18 01/29/19 19:44 36.2 C L 118 H 18 01/29/19 17:45 39.5 C H 130 H 18 01/29/19 17:03 219/98 H 01/29/19 16:55 39.4 C H 01/29/19 15:24 37.5 C 81 16 01/29/19 15:00 79 01/29/19 11:39 168/87 H 01/29/19 10:55 36.7 C 67 16 172/103 H BP Pulse Ox 01/29/19 20:31 93 01/29/19 20:27 94 01/29/19 20:10 106/68 96 01/29/19 20:00 103/74 95 01/29/19 19:50 114/75 95 01/29/19 19:44 129/77 97 01/29/19 17:45 146/83 H 98 01/29/19 17:03 01/29/19 16:55 01/29/19 15:24 114/76 96 01/29/19 15:00 01/29/19 11:39 01/29/19 10:55 98 PG Care Time/CCT Total # of Minutes Spent Total Time Spent with Patient: Total time spent is greater than 50% in coordination of care (as documented) at patient's floor/unit and/or counseling patient: Critical Care Time: Yes Total Critical Care Time: 45
[2019-01-29] MEDS ORDERED: NOREPINEPHRINE BIT INJ 8 MG in DEXTROSE 5% 500 ML IV SCH (22:15)
[2019-01-29 22:17] LABS: BUN Creatinine Ratio 18.5 (10-20); Calcium 8.3 mg/dl (8.5-10.1); Creatinine Clr Calc Pharmacy 21.8 ml/min; Est GFR (African American) 34.2; Est GFR (Non-African American) 29.5; Magnesium 1.9 mg/dl (1.8-2.4); Potassium 3.9 mmol/L (3.5-5.1)
[2019-01-29 22:25] LABS: Dohle Bodies 1+; Giant Platelets 1+; Immature Granulocytes # (auto) 0.01 K/uL (0.00-0.02); Immature Granulocytes % (auto) 0.1 %; Lymphocytes # (auto) 0.61 K/uL (1.2-3.4); Lymphocytes % (auto) 8.5 %; Monocytes # (auto) 0.49 K/uL (0.11-0.59); Monocytes % (auto) 6.8 %; Neutrophils # (auto) 6.08 K/uL (1.4-6.5); Neutrophils % (auto) 84.6 %
[2019-01-29] MEDS ORDERED: NORMOSOL-R 500 ML IV ONE (23:12)
[2019-01-29] MEDS: NORMOSOL-R 1,000 ML IV SCH (23:14)
[2019-01-29] MEDS: FAMOTIDINE 20 MG in SYRINGE 3 ML IV SCH (23:43)
[2019-01-30] MEDS ORDERED: HYDROCORTISONE SOD SUCCINATE 100 MG/2 ML VIAL IV STA (00:38)
[2019-01-30] MEDS ORDERED: PIPERACILLIN/TAZOBACTAM 3.375 GM in DEXTROSE 5% 100 ML IV SCH (01:00)
[2019-01-30 04:49] LABS: Hematocrit (blood only) 28.9 % (42-52); Hemoglobin 9.9 g/dL (14.0-18.0); Mean Corpuscular Hemoglobin 30.7 pg (25-34); Mean Corpuscular Hgb Conc 34.3 g/dL (32-36); Mean Corpuscular Volume 89.5 fL (80-100); RDW Coefficient of Variation 14.7 % (11.5-14.5); RDW Standard Deviation 48.2 fL (36.4-46.3); Red Blood Count 3.23 M/uL (4.7-6.1); White Blood Count 9.24 K/uL (4.8-10.8)
[2019-01-30 04:57] LABS: Immature Granulocytes # (auto) 0.04 K/uL (0.00-0.02); Immature Granulocytes % (auto) 0.4 %; Lymphocytes # (auto) 1.15 K/uL (1.2-3.4); Lymphocytes % (auto) 12.4 %; Mean Platelet Volume 9.8 fL (7.4-10.4); Monocytes # (auto) 0.81 K/uL (0.11-0.59); Monocytes % (auto) 8.8 %; Neutrophils # (auto) 7.24 K/uL (1.4-6.5); Neutrophils % (auto) 78.4 %; Platelet Count 49 K/uL (130-400)
[2019-01-30 05:11] LABS: Albumin Level 2.5 gm/dl (3.4-5.0); BUN Creatinine Ratio 18.2 (10-20); Bilirubin Direct 0.4 mg/dl (0-0.2); Calcium 7.6 mg/dl (8.5-10.1); Creatinine Clr Calc Pharmacy 24.2 ml/min; Est GFR (African American) 38.7; Est GFR (Non-African American) 33.4; Magnesium 2.2 mg/dl (1.8-2.4); Potassium 4.4 mmol/L (3.5-5.1)
[2019-01-30 05:14] LABS: Bilirubin,Total 0.7 mg/dl (0.2-1); Globulin 2.6 gm/dl (2.5-4.0); Phosphorus 3.2 mg/dl (2.5-4.9); Total Protein 5.1 gm/dl (6.4-8.2)
--- NOTE | 2019-01-30 05:46 | Critical Care Progress Note ---
Date of Service January 30, 2019 Assessment & Plan (1) Sepsis due to urinary tract infection: Reason Critically Ill: 73-year-old male with past medical history of AML status post stem cell allograft not on immunosuppressants, bioprosthetic AVR, and prior CVA with residual dysarthria and mild right-sided weakness. Status post emergent cystoscopy with RIGHT-sided ureteral stent placement in the setting of infected ureteral stone. He was admitted to the ICU for Intra-Op pressor requirement. NEURO - CAM ICU: NEGATIVE History of CVA with right-sided deficits and some residual dysarthria Reported right-sided and speech deficits with syncope/seizure as mentioned below Suspect emergence of residual deficits from prior CVA without acute stroke due to urosepsis Single episode of syncope/seizure: - Negative EEG. No repeat seizure activity during admission Neurology consulted, signed off and patient Low suspicion for cardiac etiology Chronic abdominal pain: Tylenol 1 g IV every 8 hours as needed Dicyclomine 10 mg p.o. before meals Zofran 4 mg IV Every 6 hours PRN CARDIAC/VASCULAR - Hypotension 2/2 urosepsis Secondary to urosepsis with ureteral stone as noted below Required pressors during intraoperative stent placement and was transferred to ICU for care, no pressors required following stenting and source control during ICU admission Continue Normosol 100 cc/h Hemodynamically stable this morning History of Bioprosthetic aortic valve replacement Recent echo with preserved ejection fraction Hypertension KITCHEN OPERATOR metoprolol held in the setting of hypotension/sepsis RESPIRATORY - No history of pulmonary disease. Unlabored breathing, SPO2 greater than 88% on room air GI/NUTRITION - Diet: Heart healthy/DM 2 RENAL/LYTES - Chronic kidney disease Creatinine increased to 2.17 from a baseline of approximately 1.0, downtrending to 1.96 this morning Continue IVFM as above BMP daily Sodium, potassium within normal limits - Urosepsis with retained ureteral stone status post right ureteral stent placement Source control with above Zosyn narrowed to Rocephin as below Red-tinged, clear urine draining from Osman. No pain. 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 Continue to follow sensitivities, Proteus with good Rocephin susceptibility per antibiogram Procal up trended from 84 to 163 consistent with sepsis, patient clinically improving with source control and Abx Repeat blood cultures ordered LINES/IV ACCESS - PIVs x2 Osman in place DVT PROPHYLAXIS - Hold s/p cystoscopy with thrombocytopenia Disposition: Stable for downgrade (2) Right ureteral calculus: (3) History of CVA (cerebrovascular accident): (4) Stroke-like symptoms: (5) S/P aortic valve replacement with bioprosthetic valve: (6) Abdominal pain: (7) DVT prophylaxis: (8) AML (acute myeloid leukemia): (9) H/O stem cell transplant: Supervising Physician Co-Signing Physician Notes Dr. Mcdonough was resident physician during care of patient. I separately evaluated patient for herrera portions of the history and the exam. I was present during the critical portion of medical decision making, and I discussed the case with the resident. I generally agree with the findings and plan. Patient has remained hemodynamically stable discontinuing vasoactive medication, patient was septic secondary to gram-negative bacteremia, de-escalating from Zosyn to Rocephin sensitivities for Klebsiella are pansensitive no sensitivities for Proteus however based on antibiogram this most likely P. mirbilis which Rocephin is highly effective for based on hospital antibiogram. Repeat blood cultures today and patient is stable for downgrade out of ICU. Patient reports along with family at bedside he is not on steroids nor antirejection meds. Bone marrow transplant occurred in 2017 pharmacy staff review of chart states in October 2018 last oncology note stated patient not on antirejection meds despite allogeneic bone marrow transplant. Will discontinue steroids at this time. Subjective Oz reports he feels better this morning than last night. He endorses fatigue and feels about 80% of his normal baseline, reports this is better than 50% of his normal baseline yesterday. Endorses some mild low left-sided abdominal pain 1/10 in intensity and no back pain today. He denies fevers, chills, sweats overnight. Denies chest pain, chest pressure, shortness of breath, difficulty breathing, shortness of breath, presyncope overnight. Denies nausea/vomiting/constipation/diarrhea he feels his speech and strength are at or near baseline, but he feels generally tired. He is not having any pain at the site of his Osman catheter. He confirms that while he has a history of AML with stem cell allograft, he has never been on steroids/immunosuppression's/graft rejection medications prior to admission. No questions or concerns at time of visit. Review of Systems Review of Systems: Constitutional: Denies fever, chills, night sweats. Endorses fatigue. Eyes: Denies double vision, vision change. ENT: Denies ear pain, sore throat, sinus pain Cardiovascular: Denies Chest pain, chest pressure, palpitations, extremity swelling Respiratory: Denies shortness of breath, cough, sputum production, difficulty breathing Gastrointestinal: Endorses left abdominal pain as noted in HPI. Otherwise denies abdominal pain, nausea, vomiting, constipation, diarrhea Genitourinary: Denies pain with urination Musculoskeletal: Denies muscle aches/pain, joint aches/pain Integumentary:Denies rash, lesions, bruising Neurological: Denies headache, numbness, tingling, focal weakness Physical Exam Physical Exam: General: A&Ox3. NAD. Cooperative. Answers questions appropriately. Mild dysarthria appreciated. HEENT: Atraumatic, normocephalic. Trace right-sided facial asymmetry present. No sensory deficits to soft touch. Pupils equal and reactive to light and accommodation. Extraocular movements intact without nystagmus. Pulm: Left lower lobe with trace crackles/rales, otherwise CTAB A&P. -wheezes, - rhonchi. Symmetrical chest rise. No increased work of breathing. No respiratory distress. Cardiac: RRR, systolic murmur present. -rg. Radial pulses intact and symmetrical. Abdominal: Endorses mild left flank pain not worsened on palpation. Abdomen soft, nondistended. Endorses left tenderness to CVA percussion, denies right CVA tenderness and right flank pain. : Osman in place draining red-tinged clear urine. Extremities: Moves all extremities. 5/5 strength to finger flexion/extension, elbow flexion/extension, shoulder internal rotation/external rotation, knee flexion/extension, ankle plantar flexion/dorsiflexion bilaterally. PT pulses intact bilaterally. Results & Data Vital Signs (Past 12 Hours) Vital Signs Temp Pulse Pulse Resp BP BP Pulse Ox 01/30/19 04:16 56 L 16 113/73 98 01/30/19 04:01 54 L 15 97/66 L 99 01/30/19 04:00 36.4 C L 01/30/19 03:46 53 L 14 97/66 L 98 01/30/19 03:31 59 L 15 100/64 98 01/30/19 03:16 56 L 15 94/62 L 98 01/30/19 03:01 57 L 15 92/64 L 98 01/30/19 02:46 59 L 17 84/58 L 96 01/30/19 02:31 59 L 16 93/63 L 98 01/30/19 02:16 61 18 88/61 L 95 01/30/19 02:01 65 12 92/63 L 93 01/30/19 01:46 61 15 87/63 L 98 01/30/19 01:31 64 16 88/61 L 97 01/30/19 01:16 66 11 L 85/59 L 98 01/30/19 01:01 78 8 L 92/67 L 94 01/30/19 00:46 67 17 82/60 L 98 01/30/19 00:30 69 15 86/63 L 99 01/30/19 00:15 71 15 83/64 L 98 01/30/19 00:01 74 17 89/67 L 96 01/29/19 23:46 75 16 86/62 L 97 01/29/19 23:45 36.4 C L 01/29/19 23:31 77 13 88/64 L 96 01/29/19 23:21 86 16 85/65 L 98 01/29/19 23:10 78 15 81/58 L 95 01/29/19 23:00 84 16 80/57 L 95 01/29/19 22:50 86 17 89/65 L 94 01/29/19 22:41 81 22 83/63 L 97 01/29/19 22:30 80 16 89/66 L 96 01/29/19 22:21 86 15 92/67 L 95 01/29/19 22:10 85 2 L 86/69 L 94 01/29/19 22:01 87 16 92/63 L 95 01/29/19 22:00 92 H 7 L 93 01/29/19 21:51 92 H 20 86/71 L 97 01/29/19 21:40 95 H 14 93/66 L 95 01/29/19 21:31 108 H 17 82/59 L 95 01/29/19 21:30 101 H 21 95 01/29/19 21:27 98 H 21 84/63 L 95 01/29/19 21:15 108 H 19 81/57 L 93 01/29/19 21:01 109 H 19 78/59 L 94 01/29/19 21:00 108 H 14 93 01/29/19 20:32 111 H 20 96 01/29/19 20:31 112 H 14 94/68 L 93 01/29/19 20:27 36.6 C 110 H 22 102/71 94 01/29/19 20:10 36.5 C 105 H 17 106/68 96 01/29/19 20:00 113 H 17 103/74 95 01/29/19 19:50 113 H 18 114/75 95 01/29/19 19:44 36.2 C L 118 H 18 129/77 97 PG Care Time/CCT Total # of Minutes Spent Total Time Spent with Patient: Total time spent is greater than 50% in coordination of care (as documented) at patient's floor/unit and/or counseling patient: Resident Activity Tracking Resident Involvement: Resident Care Provided Care Provided: Adult Hospital Medicine
[2019-01-30] MEDS ORDERED: HYDROCORTISONE SOD 50 MG in SYRINGE 0 ML IV SCH (06:00)
[2019-01-30] MEDS: SIMETHICONE 80 MG CHEW PO SCH ×4 (06:32→20:52)
[2019-01-30] MEDS: NORMOSOL-R 1,000 ML IV SCH ×2 (06:32→18:28)
[2019-01-30] MEDS: DICYCLOMINE HCL 10 MG CAP PO SCH ×3 (06:33→15:55)
[2019-01-30] MEDS: LEVOTHYROXINE SODIUM 112 MCG TABLET PO SCH (06:33)
--- NOTE | 2019-01-30 06:53 | XRay Report ---
XR chest 1V portable CLINICAL HISTORY: sepsis dyspnea COMPARISON STUDY: 01/29/2018 FINDINGS: Stable bibasilar atelectasis. Prior median sternotomy. Mild chronic fullness of the pulmonary vasculature. IMPRESSION: Unchanged exam. Bibasilar interstitial prominence unaltered The above report was generated using voice recognition software. It may contain grammatical, syntax or spelling errors. Electronically signed by: Pepe Bardales M.D. 01/30/2019 6:51 AM
[2019-01-30] MEDS: INSULIN ASPART 100 UNITS/ML 3 ML PEN SC SCH ×4 (07:41→20:56)
[2019-01-30] MEDS: ASPIRIN 81 MG ECTAB PO SCH (07:43)
[2019-01-30] MEDS: TAMSULOSIN HCL 0.4 MG CAP PO SCH (07:44)
[2019-01-30] MEDS: FAMOTIDINE 20 MG in SYRINGE 3 ML IV SCH (07:44)
[2019-01-30] MEDS: cefTRIAXone SODIUM 1,000 MG in DEXTROSE 5% 50 ML IV SCH (09:55)
--- NOTE | 2019-01-30 10:46 | Infectious Disease Consult ---
Date of Consultation January 30, 2019 Assessment & Plan (1) Gram negative sepsis: will continue zosyn for now and repeat blood cultures. final recs based on final culture results. will need 14 days min abx. maintain IV for now. will follow. (2) Sepsis due to urinary tract infection: History of Present Illness Attending Physician: Ezio Posey MD pt admitted after syncopal episode at home. Last seen by ID in 06/2018 when he was found to have discitis, he was transferred to [facility], underwent surgery and was d/c on prolonged course of IV vanco which he completed successfully. He has complicated pmh, h/o aml with bmt, not recently on immunosuppressives. present on my exam. States he had been c/o progressive abd pain over days to week [employer] and then had syncopal episode. was admitted for further workup, mri brain and neuro eval unremarkable. On 01/28 he had rigors, tmax 39.5, was started on IV ctx. had hotn and continued fevers on 01/29 - transferred to ICU, placed on pressors and abx changed to zosyn, tolerating well. tmax overnight 37.8. CT abd done and revealed right pyelo with 6mm obst stone, urology evaluated and took to OR last night for stent, tolerated well. Now feeling much better. abd pain resolved. denies f/c. slept well, awaiting transfer from ICU. Blood cultures from 01/28 growing pansensitive K. pneumo and proteus, sensitivities pending. tolerating abx. urine culture pending. UA >30 wbc, +1 bacteria, now with waldron. wbc 12, improved to 9, creat 1.9 (as high as 2.2 on 01/29)Echo negative for veg. Procalcitonin elevated at 163. Overall feeling much better, no abd pain, no n/v/d, eating but poor po intake, no cp, sob, iniguez, cough. Allergies Allergy/AdvReac Type Severity Reaction Status Date / Time No Known Allergies Allergy Verified 01/26/19 22:44 Home Medications Home Medications Medication Instructions Recorded Confirmed Type acetaminophen [Tylenol Extra 500 mg PO QID PRN 07/10/18 01/26/19 History Strength] insulin glargine [Lantus U-100 8 unit SUBCUT HS 07/10/18 01/26/19 History Insulin] insulin lispro [Humalog KwikPen 0 unit SUBCUT AC PRN 07/10/18 01/26/19 History Insulin] metoprolol tartrate 12.5 mg PO HS 07/10/18 01/26/19 History simethicone [Gas-X Extra Strength] 125 mg PO ACHS 07/10/18 01/26/19 History dicyclomine 10 mg PO AC 01/26/19 01/26/19 History finasteride 5 mg PO HS 01/26/19 01/26/19 History lactobacillus combination no.4 3,000 mmu cells PO UD 01/26/19 01/26/19 History [Probiotic] levothyroxine 112 mcg PO QAM 01/26/19 01/26/19 History potassium chloride 20 meq PO DAILY PRN 01/26/19 01/26/19 History tamsulosin 0.4 mg PO QAM 01/26/19 01/26/19 History Patient History Medical History Chronic kidney disease (Chronic) Parotid tumor (Resolved) 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) HTN (hypertension) (Chronic) Hypothyroidism (Chronic) 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 Surgical History S/P aortic valve replacement with bioprosthetic valve Aortic valve replaced (Chronic) H/o aortic stenosis s/p prosthetic valve replacement in 2012 H/O stem cell transplant (Chronic) [facility], September 2016 History of vascular access device INSERTION AND REMOVAL Family History Other Coronary heart disease Stroke Thyroid disorder Social History Preferred Language: Lao Communication Ability: Effective 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: No Beliefs That Will Affect Care: None marital status: Current Living Situation: Spouse current occupational status: retired Feels Safe at Home: Yes Smoking Status: Never smoker Second Hand Exposure: No ; Hx Alcohol Use: No Hx Substance Use: No Review of Systems Review of Systems: All systems reviewed & are unremarkable except as noted in HPI & below Physical Exam Constitutional: WD/WN, vitals as above Eyes: PERRL, conjunctivae normal, anicteric sclerae ENMT: external ear and nose normal, oropharynx normal Neck: normal visual inspection Respiratory: normal respiratory effort, lungs clear to auscultation Cardiovascular: RRR, no murmur, no edema Gastrointestinal (Abdomen): normal bowel sounds, soft, nontender, no hepatosplenomegaly Musculoskeletal: no cyanosis or clubbing, extremities motor strength 5/5 Skin: no rashes, warm and dry Psychiatric: A+Ox3, euthymic affect Results & Data Vital Signs (Past 12 Hours) Vital Signs Temp Pulse Resp BP Pulse Ox 01/30/19 09:00 55 L 18 116/70 100 01/30/19 08:00 36.5 C 46 L 19 107/75 99 01/30/19 07:00 52 L 11 L 118/73 99 01/30/19 06:11 59 L 13 114/80 99 01/30/19 06:01 69 17 80/57 L 94 01/30/19 05:01 52 L 15 101/70 01/30/19 04:16 56 L 16 113/73 98 01/30/19 04:01 54 L 15 97/66 L 99 01/30/19 04:00 36.4 C L 01/30/19 03:46 53 L 14 97/66 L 98 01/30/19 03:31 59 L 15 100/64 98 01/30/19 03:16 56 L 15 94/62 L 98 01/30/19 03:01 57 L 15 92/64 L 98 01/30/19 02:46 59 L 17 84/58 L 96 01/30/19 02:31 59 L 16 93/63 L 98 01/30/19 02:16 61 18 88/61 L 95 01/30/19 02:01 65 12 92/63 L 93 01/30/19 01:46 61 15 87/63 L 98 01/30/19 01:31 64 16 88/61 L 97 01/30/19 01:16 66 11 L 85/59 L 98 01/30/19 01:01 78 8 L 92/67 L 94 01/30/19 00:46 67 17 82/60 L 98 01/30/19 00:30 69 15 86/63 L 99 01/30/19 00:15 71 15 83/64 L 98 01/30/19 00:01 74 17 89/67 L 96 01/29/19 23:46 75 16 86/62 L 97 01/29/19 23:45 36.4 C L 01/29/19 23:31 77 13 88/64 L 96 01/29/19 23:21 86 16 85/65 L 98 01/29/19 23:10 78 15 81/58 L 95 01/29/19 23:00 84 16 80/57 L 95 01/29/19 22:50 86 17 89/65 L 94 01/29/19 22:41 81 22 83/63 L 97 Laboratory Results Microbiology 01/29/19 07:55 Urine,Clean Catch Urine Culture - Preliminary No growth - Less than 1,000 colonies/mL, Final report to follow. 01/28/19 07:11 Blood Aerobic Blood Culture - Preliminary No growth in Aerobic bottle after 48 hours. 01/28/19 07:11 Blood Anaerobic Blood Culture - Preliminary Klebsiella pneumoniae Proteus species 01/28/19 07:01 Blood Aerobic Blood Culture - Preliminary Klebsiella pneumoniae Proteus species 01/28/19 07:01 Blood Anaerobic Blood Culture - Preliminary Klebsiella pneumoniae PG Care Time/CCT Total # of Minutes Spent Total Time Spent with Patient: Total time spent is greater than 50% in coordination of care (as documented) at patient's floor/unit and/or counseling patient:
--- NOTE | 2019-01-30 19:01 | Hospitalist Progress Note ---
Date of Service January 30, 2019 Assessment & Plan (1) Gram negative sepsis: Chronic abdominal pain, worse day of admission, but no flank pain per se, dysuria, or hematuria. Meet sepsis criteria with Elevated WBC, febrile and elevated lactate Was transferred to The ICU due to Hypotension and required pressor Procalcitonin elevated CT abd & pelvis showed obstructing right ureteral calculus with hydronephrosis Blood cx on 01/28 positive for pseudomonas Pneumonia and proteus Has been off pressor ID on board Was on Zosyn IV, transition to Rocephin by the Critical care team Repeat blood cx today pending Continue monitor closely (2) Syncope: Possible vasovagal Head CT and MRI showed no acute finding Carotid doppler showed no hemodynamically significant stenosis. EEG showed no seizure activity EEG showed no evidence for potentially epileptogenic activity No significant structural disease involving the brain and there is no justification for anticonvulsant therapy as per neurology Fall precaution PT/OT eval Right ureteral calculus Sepsis from obstructing right proximal ureteral calculus. Urology consulted S/P Right Stent, Cystoscopy / fulguration of prostate performed on 01/[address] Serna Continue waldron cath for now Acute kidney injury Mostly related to obstructing renal calculi and hydronephrosis Creatinine 1.22 at time of admission Creatinine increased to 2.29 Continue IVF Creatinine today 1.96 Monitor BMP Aortic valve replaced History of endocarditis with cardioemboli. ECHO showed abnormal septal wall motion consistent with post-operative state with EF 60-65%. No indication of vegetation noted. Stable HTN (hypertension) Was required pressor due to Low BP Continue metoprolol with hold parameters. DM type 2 Continue insulin per protocol. Hypothyroidism Continue levothyroxine. AML (acute myeloid leukemia) Management per Hematology. THROMBOCYTOPENIA Chronic thrombocytopenia. Platelet count today = 49,000. No sign of bleeding Monitor CBC VTE prophylaxis No anticoagulants due to thrombocytopenia. SCDs ordered. Ambulate. Disposition Will transfer out of the ICU Medical follow-up with Dr. Peña. Subjective Pt was seen and examined Lying in bed with no distress Pt said that he feels much better He has been afebrile Denies any chest pain, palpitation, dizziness and SOB Physical Exam Physical Exam: General- No acute distress Head- atraumatic Eyes- PERRL, EOMI, ENT- oropharynx clear Neck- supple, no JVD Lungs- clear to auscultation Heart- regular rhythm; +murmur Abdomen- normal bowel sounds, soft, +mild tenderness with palpation Extremities- no calf tenderness Neuro- alert, oriented x 3; PERRL, EOMI; no facial palsy; no dysarthria Skin- warm & dry Results & Data Vital Signs (Past 12 Hours) Vital Signs Temp Pulse Resp BP Pulse Ox 01/30/19 18:01 63 17 104/73 01/30/19 18:00 63 15 01/30/19 17:01 63 20 119/72 01/30/19 17:00 63 20 95 01/30/19 16:01 62 17 126/81 01/30/19 16:00 36.5 C 60 18 98 01/30/19 15:01 50 L 15 116/69 98 01/30/19 15:00 51 L 14 99 01/30/19 14:00 54 L 7 L 110/70 96 01/30/19 13:00 58 L 24 109/67 98 01/30/19 12:00 36.4 C L 62 17 111/69 100 01/30/19 11:00 53 L 18 110/68 99 01/30/19 10:00 61 18 108/69 99 01/30/19 09:00 55 L 18 116/70 100 01/30/19 08:00 36.5 C 46 L 19 107/75 99 01/30/19 07:00 52 L 11 L 118/73 99
[2019-01-30] MEDS: METOPROLOL TARTRATE 25 MG TAB PO SCH (20:52)
[2019-01-30] MEDS: INSULIN GLARGINE SOLOSTAR 100 UNITS/ML 3 ML PEN SQ SCH (20:53)
[2019-01-30] MEDS: FINASTERIDE 5 MG TAB PO SCH (20:55)
[2019-01-31] MEDS: NORMOSOL-R 1,000 ML IV SCH ×3 (04:05→23:22)
[2019-01-31] MEDS: LEVOTHYROXINE SODIUM 112 MCG TABLET PO SCH (05:16)
[2019-01-31 07:06] LABS: Hematocrit (blood only) 27.5 % (42-52); Hemoglobin 9.4 g/dL (14.0-18.0); Mean Corpuscular Hemoglobin 30.6 pg (25-34); Mean Corpuscular Hgb Conc 34.2 g/dL (32-36); Mean Corpuscular Volume 89.6 fL (80-100); RDW Coefficient of Variation 14.7 % (11.5-14.5); RDW Standard Deviation 48.5 fL (36.4-46.3); Red Blood Count 3.07 M/uL (4.7-6.1); White Blood Count 8.38 K/uL (4.8-10.8)
[2019-01-31 07:18] LABS: Mean Platelet Volume 10.3 fL (7.4-10.4); Platelet Count 53 K/uL (130-400)
[2019-01-31 07:57] LABS: BUN Creatinine Ratio 23.8 (10-20); Calcium 7.7 mg/dl (8.5-10.1); Creatinine Clr Calc Pharmacy 34.8 ml/min; Est GFR (African American) 51.8; Est GFR (Non-African American) 44.7; Potassium 3.4 mmol/L (3.5-5.1)
[2019-01-31] MEDS: DICYCLOMINE HCL 10 MG CAP PO SCH ×3 (08:57→17:10)
[2019-01-31] MEDS: ASPIRIN 81 MG ECTAB PO SCH (08:57)
[2019-01-31] MEDS: SIMETHICONE 80 MG CHEW PO SCH ×4 (08:57→21:14)
[2019-01-31] MEDS: TAMSULOSIN HCL 0.4 MG CAP PO SCH (08:57)
[2019-01-31] MEDS: INSULIN ASPART 100 UNITS/ML 3 ML PEN SC SCH ×4 (09:00→21:15)
[2019-01-31] MEDS: cefTRIAXone SODIUM 1,000 MG in DEXTROSE 5% 50 ML IV SCH (09:03)
--- NOTE | 2019-01-31 14:10 | Infectious Disease Progress Nt ---
Date of Service January 31, 2019 Assessment & Plan (1) Gram negative sepsis: continue rocephin while in hospital. follow repeat cultures. if remains stable and repeat blood cultures negative would give 14 days total from first negative blood culture (follow 01/30 results). would suggest transition to omnicef 300mg po bid upon d/c. (2) Sepsis due to urinary tract infection: Subjective pt transferred from ICU, changed to rocephin, tolerating well. afebrile. wbc 8.3, creat improved 1.5, 01/30 blood cultures pending, initial blood cultures growing lr sensitive K. pneumo and proteus. Urine culture negative. Results & Data Vital Signs (Past 12 Hours) Vital Signs Temp Pulse Pulse Resp BP Pulse Ox 01/31/19 11:48 36.8 C 67 18 124/71 93 01/31/19 07:48 36.5 C 50 L 18 127/71 97 01/31/19 07:31 49 L 01/31/19 03:41 36.6 C 53 L 18 115/71 95 Laboratory Results Microbiology 01/30/19 09:15 Blood Aerobic Blood Culture - Preliminary No growth in Aerobic bottle after 24 hours. 01/30/19 09:05 Blood Aerobic Blood Culture - Preliminary No growth in Aerobic bottle after 24 hours. 01/30/19 09:05 Blood Anaerobic Blood Culture - Preliminary No growth in Anaerobic bottle after 24 hours. 01/29/19 07:55 Urine,Clean Catch Urine Culture - Final No growth - less than 1,000 colonies/mL. 01/28/19 07:11 Blood Aerobic Blood Culture - Preliminary No growth in Aerobic bottle after 48 hours. 01/28/19 07:11 Blood Anaerobic Blood Culture - Final Klebsiella pneumoniae Proteus mirabilis 01/28/19 07:01 Blood Aerobic Blood Culture - Final Klebsiella pneumoniae Proteus mirabilis 01/28/19 07:01 Blood Anaerobic Blood Culture - Final Klebsiella pneumoniae PG Care Time/CCT Total # of Minutes Spent Total Time Spent with Patient: Total time spent is greater than 50% in coordination of care (as documented) at patient's floor/unit and/or counseling patient:
[2019-01-31] MEDS ORDERED: POTASSIUM CHLORIDE 20 MEQ TABCR PO STA (16:23)
--- NOTE | 2019-01-31 17:49 | Hospitalist Progress Note ---
Date of Service January 31, 2019 Assessment & Plan (1) Gram negative sepsis: Chronic abdominal pain, worse day of admission, but no flank pain per se, dysuria, or hematuria. Meet sepsis criteria with Elevated WBC, febrile and elevated lactate Was transferred to The ICU due to Hypotension and required pressor Procalcitonin elevated CT abd & pelvis showed obstructing right ureteral calculus with hydronephrosis Blood cx on 01/28 positive for pseudomonas Pneumonia and proteus Has been off pressor ID on board Was on Zosyn IV, transition to Rocephin by the Critical care team Repeat blood cx pending Continue Rocephin IV daily for now ID recommended to transition to Omnicef on discharge to complete 14 days course of abx Continue monitor closely (2) Syncope: Possible vasovagal Head CT and MRI showed no acute finding Carotid doppler showed no hemodynamically significant stenosis. EEG showed no seizure activity EEG showed no evidence for potentially epileptogenic activity No significant structural disease involving the brain and there is no justification for anticonvulsant therapy as per neurology Fall precaution Continue PT/OT Right ureteral calculus Sepsis from obstructing right proximal ureteral calculus. Urology consulted S/P Right Stent, Cystoscopy / fulguration of prostate performed on 01/[address] Serna Continue waldron cath for now, will discuss with urology about waldron cath on discharge Acute kidney injury Mostly related to obstructing renal calculi and hydronephrosis Creatinine 1.22 at time of admission Creatinine increased to 2.29 Will d/c IVF Creatinine today 1.5 Monitor BMP Aortic valve replaced History of endocarditis with cardioemboli. ECHO showed abnormal septal wall motion consistent with post-operative state with EF 60-65%. No indication of vegetation noted. Stable HTN (hypertension) Was required pressor due to Low BP Continue metoprolol with hold parameters. DM type 2 Continue insulin per protocol. Hypothyroidism Continue levothyroxine. AML (acute myeloid leukemia) Management per Hematology. THROMBOCYTOPENIA Chronic thrombocytopenia. Platelet count today = 49,000. No sign of bleeding Monitor CBC VTE prophylaxis No anticoagulants due to thrombocytopenia. SCDs ordered. Ambulate. Disposition Will discharge home once medically stable Medical follow-up with Dr. Peña. Subjective Pt was seen and examined Lying in bed with no distress Pt said that he feels much better He said that he walked with therapy today denies any chest pain, palpitation and SOB Physical Exam Physical Exam: General- No acute distress Head- atraumatic Eyes- PERRL, EOMI, ENT- oropharynx clear Neck- supple, no JVD Lungs- clear to auscultation Heart- regular rhythm; +murmur Abdomen- normal bowel sounds, soft, +mild tenderness with palpation Extremities- no calf tenderness Neuro- alert, oriented x 3; PERRL, EOMI; no facial palsy; no dysarthria Skin- warm & dry Results & Data Vital Signs (Past 12 Hours) Vital Signs Temp Pulse Pulse Resp BP Pulse Ox 01/31/19 15:27 36.7 C 58 L 18 124/79 97 01/31/19 11:48 36.8 C 67 18 124/71 93 01/31/19 07:48 36.5 C 50 L 18 127/71 97 01/31/19 07:31 49 L
[2019-01-31] MEDS: INSULIN GLARGINE SOLOSTAR 100 UNITS/ML 3 ML PEN SQ SCH (21:13)
[2019-01-31] MEDS: METOPROLOL TARTRATE 25 MG TAB PO SCH (21:13)
[2019-01-31] MEDS: FINASTERIDE 5 MG TAB PO SCH (21:14)
[2019-02-01] MEDS: TRAMADOL HCL 50 MG TABLET PO PRN (02:46)
[2019-02-01] MEDS: LEVOTHYROXINE SODIUM 112 MCG TABLET PO SCH (06:06)
[2019-02-01] MEDS: SIMETHICONE 80 MG CHEW PO SCH ×4 (07:14→20:42)
[2019-02-01] MEDS: DICYCLOMINE HCL 10 MG CAP PO SCH ×3 (07:14→16:54)
[2019-02-01 07:29] LABS: Creatinine Clr Calc Pharmacy 44.5 ml/min; Est GFR (African American) 67.4; Est GFR (Non-African American) 58.1
[2019-02-01] MEDS: INSULIN ASPART 100 UNITS/ML 3 ML PEN SC SCH ×4 (08:10→20:42)
[2019-02-01] MEDS: TAMSULOSIN HCL 0.4 MG CAP PO SCH (08:11)
[2019-02-01] MEDS: ASPIRIN 81 MG ECTAB PO SCH (08:11)
[2019-02-01] MEDS: NORMOSOL-R 1,000 ML IV SCH ×2 (08:41→19:06)
[2019-02-01] MEDS: cefTRIAXone SODIUM 1,000 MG in DEXTROSE 5% 50 ML IV SCH (09:29)
--- NOTE | 2019-02-01 12:29 | Urology Progress Note ---
Date of Service February 01, 2019 Assessment & Plan (1) Gram negative sepsis: right obstructing upper ureteral stones caused the sepsis event has had a remarkable improvement these last 3 days. His presentation was atypical with left abdominal pain, no right renal colic. Urine lr sensitive will have a 2 week total course. I removed the waldron. he needs to void by 4pm. If he cannot void he should have an 18 fr coude waldron replaced. Waldron needs to be hubbed upon insertion prior to inflating balloon. we will go back to OR in 3 weeks to remove stent and stones. I might trim the intravesical portion of prostate to aid voiding, lower residual urine and make future endoscopic procedures easier. His low platelet count is concerning for intraop and post-op bleeding concerns. No final decision on partial TURP yet. Home tomorrow Present on Admission?: Yes Subjective patient improving daily. Abd pain gone, appetitie so much better. Review of Systems Review of Systems: no chest pain no fevers, no weakness, no rash, no confusion Physical Exam Physical Exam: alert awake, good color, sitting up in bed, eating lunch with enthusiasm. AOx3 legs- no edema no calf tenderness, warm well perfused gu- cir phallus, 22 fr coude waldron draining yellow urine in good quantities. , scrotal skin normal. Results & Data Vital Signs (Past 12 Hours) Vital Signs Temp Pulse Pulse Resp BP Pulse Ox 02/01/19 11:49 36.9 C 62 18 167/85 H 94 02/01/19 07:50 36.8 C 61 20 134/77 92 02/01/19 07:42 82 02/01/19 04:00 36.9 C 65 18 124/71 93
--- NOTE | 2019-02-01 16:09 | Hospitalist Progress Note ---
Date of Service February 01, 2019 Assessment & Plan (1) Gram negative sepsis: Chronic abdominal pain, worse day of admission, but no flank pain per se, dysuria, or hematuria. Meet sepsis criteria with Elevated WBC, febrile and elevated lactate Was transferred to The ICU due to Hypotension and required pressor Procalcitonin elevated CT abd & pelvis showed obstructing right ureteral calculus with hydronephrosis Blood cx on 01/28 positive for pseudomonas Pneumonia and proteus Has been off pressor ID on board Was on Zosyn IV, transition to Rocephin by the Critical care team Repeat blood cx no growth Continue Rocephin IV daily for now ID recommended to transition to Omnicef on discharge to complete 14 days course of abx Continue monitor closely (2) Syncope: Possible vasovagal Head CT and MRI showed no acute finding Carotid doppler showed no hemodynamically significant stenosis. EEG showed no seizure activity EEG showed no evidence for potentially epileptogenic activity No significant structural disease involving the brain and there is no justification for anticonvulsant therapy as per neurology Fall precaution Continue PT/OT Right ureteral calculus Sepsis from obstructing right proximal ureteral calculus. Urology consulted S/P Right Stent, Cystoscopy / fulguration of prostate performed on 01/[address] Serna Waldron cath removed today by urology If he cannot void he should have an 18 fr coude waldron replaced. Follow up with urology for stent removal Acute kidney injury Mostly related to obstructing renal calculi and hydronephrosis Creatinine 1.22 at time of admission Creatinine increased to 2.29 Will d/c IVF Creatinine today 1.2 stable Aortic valve replaced History of endocarditis with cardioemboli. ECHO showed abnormal septal wall motion consistent with post-operative state with EF 60-65%. No indication of vegetation noted. Stable HTN (hypertension) Was required pressor due to Low BP BP starts to elevate Continue metoprolol Monitor BP closely DM type 2 Continue insulin per protocol. Hypothyroidism Continue levothyroxine. AML (acute myeloid leukemia) Management per Hematology. THROMBOCYTOPENIA Chronic thrombocytopenia. Platelet count 53 No sign of bleeding Monitor CBC VTE prophylaxis No anticoagulants due to thrombocytopenia. SCDs ordered. Ambulate. Disposition Will discharge home tomorrow Medical follow-up with Dr. Peña. Subjective Pt was seen and examined Lying in bed with no distress He said that he did not sleep well last night Denies any chest pain, palpitation and SOB Physical Exam Physical Exam: General- No acute distress Head- atraumatic Eyes- PERRL, EOMI, ENT- oropharynx clear Neck- supple, no JVD Lungs- clear to auscultation Heart- regular rhythm; +murmur Abdomen- normal bowel sounds, soft, +mild tenderness with palpation Extremities- no calf tenderness Neuro- alert, oriented x 3; PERRL, EOMI; no facial palsy; no dysarthria Skin- warm & dry Results & Data Vital Signs (Past 12 Hours) Vital Signs Temp Pulse Pulse Resp BP BP Pulse Ox 02/01/19 16:02 62 02/01/19 15:55 36.5 C 65 18 161/90 H 98 02/01/19 11:49 36.9 C 62 18 167/85 H 94 02/01/19 07:50 36.8 C 61 20 134/77 92 02/01/19 07:42 82
[2019-02-01] MEDS ORDERED: ACETAMINOPHEN 325 MG TAB PO PRN (20:37)
[2019-02-01] MEDS: METOPROLOL TARTRATE 25 MG TAB PO SCH (20:41)
[2019-02-01] MEDS: INSULIN GLARGINE SOLOSTAR 100 UNITS/ML 3 ML PEN SQ SCH (20:41)
[2019-02-01] MEDS: FINASTERIDE 5 MG TAB PO SCH (20:42)
[2019-02-02] MEDS: TRAMADOL HCL 50 MG TABLET PO PRN (02:09)
[2019-02-02] MEDS ORDERED: LIDOCAINE 2% JELLY 5 ML TUBE EXT ONE (03:15)
[2019-02-02] MEDS: LEVOTHYROXINE SODIUM 112 MCG TABLET PO SCH (05:03)
[2019-02-02] MEDS: NORMOSOL-R 1,000 ML IV SCH (05:03)
[2019-02-02] MEDS: DICYCLOMINE HCL 10 MG CAP PO SCH ×2 (07:18→11:23)
[2019-02-02] MEDS: SIMETHICONE 80 MG CHEW PO SCH ×2 (07:18→11:23)
[2019-02-02 07:51] LABS: Creatinine Clr Calc Pharmacy 51.2 ml/min; Est GFR (African American) 84.3; Est GFR (Non-African American) 72.7
[2019-02-02] MEDS: ASPIRIN 81 MG ECTAB PO SCH (08:22)
[2019-02-02] MEDS: TAMSULOSIN HCL 0.4 MG CAP PO SCH (08:22)
[2019-02-02] MEDS: INSULIN ASPART 100 UNITS/ML 3 ML PEN SC SCH ×2 (08:23→12:12)
[2019-02-02] MEDS: cefTRIAXone SODIUM 1,000 MG in DEXTROSE 5% 50 ML IV SCH (09:50)
--- NOTE | 2019-02-02 13:39 | Hospitalist Progress Note ---
Date of Service February 02, 2019 Assessment & Plan (1) Gram negative sepsis: Chronic abdominal pain, worse day of admission, but no flank pain per se, dysuria, or hematuria. Meet sepsis criteria with Elevated WBC, febrile and elevated lactate Was transferred to The ICU due to Hypotension and required pressor. He has been off pressor Procalcitonin elevated CT abd & pelvis showed obstructing right ureteral calculus with hydronephrosis Blood cx on 01/28 positive for pseudomonas Pneumonia and proteus ID on board Was on Zosyn IV, transition to Rocephin by the Critical care team Repeat blood cx on 01/30 showed no growth Continue Rocephin IV daily for now ID recommended to transition to Omnicef on discharge to complete 14 days course of abx starting from 01/30/19 Follow up with PCP (2) Syncope: Possible vasovagal Head CT and MRI showed no acute finding Carotid doppler showed no hemodynamically significant stenosis. EEG showed no seizure activity EEG showed no evidence for potentially epileptogenic activity No significant structural disease involving the brain and there is no justification for anticonvulsant therapy as per neurology Fall precaution Continue PT/OT Right ureteral calculus Sepsis from obstructing right proximal ureteral calculus. Urology consulted S/P Right Stent, Cystoscopy / fulguration of prostate performed on 01/[address] Kareem Kenyon Waldron cath was re-inserted last night today due to urinary retention Case discussed with Dr. Serna over the phone and OK to discharge with the Waldron Dr. Serna office will contact pt on Monday for follow for waldron removal after void trial in the office Follow up with urology for stent removal in 3 weeks Acute kidney injury Mostly related to obstructing renal calculi and hydronephrosis Creatinine 1.22 at time of admission Creatinine increased to 2.29 Creatinine improved to 1.2 after IVF Resolved Aortic valve replaced History of endocarditis with cardioemboli. ECHO showed abnormal septal wall motion consistent with post-operative state with EF 60-65%. No indication of vegetation noted. Stable HTN (hypertension) Was required pressor due to Low BP BP starts to elevate Continue metoprolol Monitor BP closely DM type 2 Continue insulin per protocol. Hypothyroidism Continue levothyroxine. AML (acute myeloid leukemia) Management per Hematology. THROMBOCYTOPENIA Chronic thrombocytopenia. Platelet count 53 No sign of bleeding Monitor CBC VTE prophylaxis No anticoagulants due to thrombocytopenia. SCDs ordered. Ambulate. Disposition Will discharge home today Medical follow-up with Dr. Peña. Subjective Pt was seen and examined Lying in bed with no distress Pt said that last night he was having back pain and urinary retention Waldron catheter was re-inserted back and seems to help with the back and bladder discomfort Pt said that Tylenol help with the pain and reluctant to take the Tramadol Dr. Serna was notified this morning about the waldron was re-inserted She said that her office will contact him on Monday Denies any chest pain, palpitation, dizziness and SOB Physical Exam Physical Exam: General- No acute distress Head- atraumatic Eyes- PERRL, EOMI, ENT- oropharynx clear Neck- supple, no JVD Lungs- clear to auscultation Heart- regular rhythm; +murmur Abdomen- normal bowel sounds, soft, +mild tenderness with palpation GUN- Waldron in place Extremities- no calf tenderness Neuro- alert, oriented x 3; PERRL, EOMI; no facial palsy; no dysarthria Skin- warm & dry Results & Data Vital Signs (Past 12 Hours) Vital Signs Temp Pulse Pulse Resp BP BP Pulse Ox 02/02/19 09:32 57 L 02/02/19 07:06 36.6 C 68 18 156/72 H 93 02/02/19 04:25 36.7 C 71 18 156/72 H 92
[2019-02-03] MEDS ORDERED: CEFDINIR 300 MG CAP PO SCH (09:00)
--- NOTE | 2019-02-03 09:06 | Discharge Summary ---
Date of Service February 02, 2019 Admission HPI Per Admitting Provider CHIEF COMPLAINT: Stroke-like symptoms. 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 He was on PEG tube post CVA where PEG tube was removed in June 2018, history of C. diff infection, history of fungal pneumonia, history of EBV viremia, enlarged prostate, peripheral drug-induced nephropathy, chronic abdominal pain etiology unclear. He has a history of disseminated shingles. CBD oil helps abdominal pain.. He was seen by GI and underwent endoscopy and EGD which were unremarkable. He was on Diflucan and acyclovir , but that was stopped prior to the transfer to [place] last admission when he was admitted for abdominal pain and diskitis in June 2018. They were stopped because he is no longer on immunosuppressants. The patient was here in the hospital, was admitted on 07/02/2018 for abdominal pain and at that time, CAT scan of the abdomen showed possible diskitis and MRI showed L5-S1 diskitis and an epidural phlegmon with mass effect on the right S1 nerve root. He was transferred to [place] where laminectomy was done by orthopedics and was treated with 6 weeks of IV vancomycin. The patient has followup with MRI scans of the lumbar spine and thoracic spine and they seems to be okay. Currently, presents with syncope and stroke-like symptoms. The patient was sitting to eat today dinner when he complained of abdominal pain. . His asked him to wait until the abdominal pain passes away, then suddenly she noticed that he fell down on the floor. He seemed to be a bit shaky, but she was not sure if he was really shaking or not. When on the floor he passed out for about 5-10 minutes, no biting of tongue, no incontinence. At that time, she called 911. Then he woke up and he seemed a little confused for some time and by the time EMS came, he was alert and awake and back to his baseline. He has some laceration on of top of his head . There was some question of right facial droop. Stroke alert was called initially prior to coming to the ER. CT of the head was done with no acute findings. The says that right facial droop is from his previous stroke and he seemed to be back to his baseline, so no tPA was given. There is question of syncope versus seizures. The patient currently denies any headache. He has some blurred vision because of being on steroids in the past. Denies any earache. There is some runny nose, denies any sore throat. He is currently swallowing okay with a regular diet, sometimes it is difficult with meat. No chest pain, no shortness of breath, no cough, no fever, no chills, no nausea, no abdominal pain currently. Normal bowel and bladder movements. No hematuria, no dysuria, no hematochezia. No swelling in the legs, no rash. says he is not on aspirin because last stroke had come from his infection and he gets bruises with aspirin, she gives aspirin every other day. Currently resting comfortably and hemodynamically stable.Currently he ambulates without any help at home. Admission Exam Per Admitting Provider GENERAL: The patient is of moderate build, not in acute distress. VITAL SIGNS: Temperature 36.9, pulse 93, respiratory rate 18, blood pressure 17 4/111, oxygen 97% on room air. HEENT: No pallor, no icterus. Pupils equal, round, and reactive to light.Laceration on upper occipital region. NECK: No JVD, no neck masses, no carotid bruits. CARDIOVASCULAR: S1, S2 heard, regular rate and rhythm, no murmur. RESPIRATORY SYSTEM: Normal AP diameter. No accessory muscle use. No wheezing, no crackles. ABDOMEN: Soft, bowel sounds present. Nontender. No distention. CENTRAL NERVOUS SYSTEM: Speech is clear. Mild right facial droop. Power 5/5 in left extremities, 4/5 in right extremities. Coordination of movements is normal. Sfnbhs-qd-wlmt test normal. No pronator drift. Sijp-mp-fdvd test normal. Sensation is intact. Position is intact. Recent and remote memory intact. Alert and oriented x3. EXTREMITIES: No edema, no erythema. Principal Diagnosis Gram negative sepsis Syncope Right ureteral calculus Acute kidney injury Aortic valve replaced HTN (hypertension) Diabetes Thrombocytopenia AML (acute myeloid leukemia) Hypothyroidism Discharge Exam General- No acute distress Head- atraumatic Eyes- PERRL, EOMI, ENT- oropharynx clear Neck- supple, no JVD Lungs- clear to auscultation Heart- regular rhythm; +murmur Abdomen- normal bowel sounds, soft, +mild tenderness with palpation GUN- Waldron in place Extremities- no calf tenderness Neuro- alert, oriented x 3; PERRL, EOMI; no facial palsy; no dysarthria Skin- warm & dry Discharge Data Allergies Allergy/AdvReac Type Severity Reaction Status Date / Time No Known Allergies Allergy Verified 01/26/19 22:44 Consultations 01/26/19 21:46 ED Decision to Admit Stat 01/27/19 00:46 Consult Case Management - Discharge Planning Routine 01/27/19 08:00 Consult Neurology Routine 01/29/19 16:51 Consult Urology Stat 01/29/19 22:02 Consult Case Management - Discharge Planning Routine Consult Geotechnical Engineering Technician Routine 01/30/19 08:00 Consult Infectious Diseases Routine Procedures Performed Operation Date: 01/29/19 13:40 Actual Procedures p Right Stent under IV Sedation, Cystoscopy(Right) - Michelle Serna MD Ordered Studies 01/26/19 20:18 CT head/brain wo con Stat 01/27/19 00:46 MR brain wo/w con Urgent US carotid doppler BI Routine 01/29/19 15:01 CT abd pelvis wo con Routine 01/29/19 17:[address] head/brain wo con CLINICAL HISTORY: 73 years-old Male with Stroke evaluation . Acute strokelike symptoms TECHNIQUE: Multiple axial CT images of the head were obtained without contrast. A dose lowering technique was utilized adhering to the principles of ALARA. CT DOSE: 537.48 mGy.cm COMPARISON: Head CT 04/04/2018 FINDINGS: No acute intracranial hemorrhage, midline shift, intracranial mass, hydrocephalus, territorial ischemia or abnormal extra-axial collection. Age- related involutional changes. Patchy white matter hypodensities suggest chronic microvascular ischemic disease. Senescent calcifications of the lentiform nuclei. There are progressive periventricular and subcortical white matter hypodensities, notably with a hypodense focus of the left frontal lobe valentine radiata measuring up to 1.8 cm which is likely chronic. Cerebral vascular calcifications are noted. The calvarium is intact. Mild dorsal thickening of the ethmoid air cells. Small right mastoid effusion. Left mastoid air cells are clear. Soft tissues and orbits are unremarkable. IMPRESSION: 1. No acute intracranial hemorrhage, midline shift or acute territorial infarct. 2. Age-related involutional changes with chronic microvascular ischemic disease. 3. There are multiple age-indeterminate lacunar infarctions noted about the bilateral periventricular distributions and valentine radiata which are progressively worsened from comparison study dated 04/04/2018. These findings are favored to be chronic in etiology. Correlate clinically. The above report was generated using voice recognition software. It may contain grammatical, syntax or spelling errors. Electronically signed by: Ruben Silva M.D. 01/26/2019 8:38 PM Dictated: 01/26/192030 Transcribed: 01/26/192030 XR chest 1V portable HISTORY: 73 years-old Male stroke acute strokelike symptoms COMPARISON: Chest radiograph 07/28/2018 TECHNIQUE: Portable AP view of the chest FINDINGS: Cardiac mediastinal and hilar silhouettes are unchanged. Prior median sternotomy with cardiac valvular prosthesis. Calcification the thoracic aortic arch. No pneumothorax, pleural effusion, focal airspace consolidation or overt pulmonary edema. Mild chronic interstitial coarsening of the lung bases. Degenerative changes of the shoulders and spine. IMPRESSION: No acute process. The above report was generated using voice recognition software. It may contain grammatical, syntax or spelling errors. Electronically signed by: Ruben Silva M.D. 01/26/2019 8:39 PM Dictated: 01/26/192037 Transcribed: 01/26/192037 MR brain wo/w con HISTORY: 73 years-old Male cva . Acute strokelike symptoms with recent head injury and blurry vision. Acute left-sided weakness COMPARISON: Head CT 01/26/2019, MRI lumbar spine 07/03/2018. TECHNIQUE: Multiplanar multisequence MRI of the brain was obtained both with and without the use of 5.0 mL Gadavist FINDINGS: Founder And Chief Technical Officer localizer images demonstrate no gross extracranial abnormality. There is no restricted diffusion to suggest acute or subacute infarction. Midline structures including the corpus callosum, brainstem, optic chiasm, pituitary and pineal glands appear unremarkable on the sagittal T1 series. No cerebellar tonsillar herniation. Degenerative changes noted about the imaged cervical spine with heterogeneous signal of the bone marrow which appears similar to lumbar spine MRI dated 07/03/2018. No acute intracranial hemorrhage, midline shift, abnormal extra axial collection, hydrocephalus or intracranial mass identified. Age-related involutional changes with patchy moderate to severe foci of T2/FLAIR prolongation suggestive of chronic microvascular ischemic disease. Remote lacunar infarction of the inferior right cerebellar hemisphere. Multiple remote lacunar infarctions of the valentine radiata and basal ganglia. Punctate focus of blooming artifact noted about the left frontal lobe may reflect an area of chronic hemosiderin. There is mild thickening with increased attenuation of the dura. 4 mm enhancing dural focus adjacent to left frontal lobe on image 58 series 12 may reflect a vascular structure or a small meningioma. No enhancing intra-axial mass. Small left and large right mastoid effusions. Mild mucosal thickening of the nasal turbinates and paranasal sinuses. Skull and orbits are unremarkable. Metallic density focus suggestive of biopsy clip projects over the superficial right parotid lobe. 2.4 x 2.2 cm intermediate T1 signal and lobular T2 hyperintense signal of the lesion is noted with areas of mild internal septal enhancement. IMPRESSION: 1. No acute intracranial hemorrhage, midline shift, acute or subacute infarct. 2. Mild thickening with increased enhancement of the pachymeninges. This finding is nonspecific and may be seen in cases of spontaneous intracranial hypotension among other etiologies. 3. Heterogeneous lesion of the superficial right parotid lobe with possible biopsy clip is noted with mild internal septal enhancement. Correlate with patient history. 4. Additional findings as above. The above report was generated using voice recognition software. It may contain grammatical, syntax or spelling errors. Electronically signed by: Ruben Silva M.D. 01/27/2019 10:12 AM Dictated: 01/27/19 0958 Transcribed: 01/27/19 0958 US carotid doppler BI CLINICAL HISTORY: 73 years-old Male with cva. Acute strokelike symptoms COMPARISON: CT head 01/26/2019 TECHNIQUE: Multiple real time sonographic images of the carotid bifurcations were obtained assessing keating scale, color Doppler and spectral wave form appearance FINDINGS: RIGHT CAROTID: The peak systolic velocity within the right ICA measures up to54 cm/sec. The end diastolic velocity measured 18 cm/sec. The ICA to CCA ratio measured 0.8 which correlates with a stenosis of 0-50%. Mild to moderate mostly calcified plaque of the right carotid bulb and proximal right ICA. LEFT CAROTID: The peak systolic velocity within the left ICA measures up to64 cm/sec. The end diastolic velocity measured 23 cm/sec. The ICA to CCA ratio measured 0.7 which correlates with a stenosis of 0-50%. Moderate calcified plaque of the left carotid bulb and proximal left ICA. There is normal antegrade vertebral flow bilaterally. IMPRESSION: 1. Calcified plaque of the bilateral carotid bulbs and proximal internal carotid arteries, left greater than right. No hemodynamically significant stenosis. 2. Normal antegrade vertebral flow bilaterally. The above report was generated using voice recognition software. It may contain grammatical, syntax or spelling errors. Electronically signed by: Ruben Silva M.D. 01/27/2019 9:11 AM Dictated: 01/27/19 09 Transcribed: 01/27/19908 XR abdomen 2V w PA chest HISTORY: 73 years-old Male abdominal pain acute generalized abdominal pain COMPARISON: Chest radiograph 01/26/2019, CT abdomen pelvis 07/02/2018 TECHNIQUE: PA view the chest with erect and supine views of the abdomen FINDINGS: Cardiac mediastinal and hilar silhouettes are unchanged. Prior median sternotomy with cardiac valvular prosthesis. Calcification the thoracic aortic arch. No pneumothorax, pleural effusion, focal airspace consolidation or overt pulmonary edema. Mild chronic interstitial coarsening of the lung bases. Degenerative changes of the shoulders and spine. Vascular calcifications are noted about the abdominal left upper quadrant. Previously noted bilateral renal calculi are not definitively seen. No renal or ureteral calculi identified on today's study. There are scattered air-fluid levels noted within the large bowel. Nonobstructive bowel gas pattern. No pneumatosis or pneumoperitoneum. Degenerative changes of the spine, pelvis and hips. IMPRESSION: 1. No acute processes of the chest. 2. Nonobstructive bowel gas pattern without pneumoperitoneum. 3. Multiple air-fluid levels about the large bowel are suggestive of diarrheal illness. The above report was generated using voice recognition software. It may contain grammatical, syntax or spelling errors. Electronically signed by: Ruben Silva M.D. 01/27/2019 12:43 PM Dictated: 01/27/19 1241 Transcribed: 01/27/[address] abd pelvis wo con CT DOSE: 370.86 mGycm HISTORY: Infection bacteremia, probable urinary source TECHNIQUE: Multiaxial CT images of the abdomen and pelvis were performed without contrast. A dose lowering technique was utilized adhering to the principles of ALARA. COMPARISON STUDY: 07/02/2018 FINDINGS: Lung bases are clear. Liver spleen and pancreas are unremarkable. Several small gallstones. Left kidney is negative for hydronephrosis. Interval development of right renal hydronephrosis and proximal right ureteral distention. This appears to be secondary to a 6 mm obstructing proximal right ureteral calculus. Moderate right perinephric infiltrative change. 5 mm nonobstructing calcification mid pole right kidney. Nonobstructive bowel pattern. Significant prostatic enlargement. Bladder is midline. No free fluid within the pelvic cul-de-sac. Degenerative change of bony structures unchanged. The paravertebral soft tissue prominence proceeded described is not appreciated currently. IMPRESSION: 1. 6 mm obstructing calculus proximal right ureter. 2. Right renal hydronephrosis and proximal right ureteral dilatation. 3. Moderate right perinephric fat stranding 4. Nonobstructive bowel pattern. 5. Considerable prostate enlargement unchanged from the prior study. The above report was generated using voice recognition software. It may contain grammatical, syntax or spelling errors. Electronically signed by: Pepe Bardales M.D. 01/29/2019 4:01 PM Dictated: 01/29/19 1556 Transcribed: 01/29/19 155 FL KUB HISTORY: 73 years-old Male RIGHT CYSTO/STENT right-sided hydronephrosis. COMPARISON: CT abdomen and pelvis 01/29/2017 TECHNIQUE: One spot fluoroscopic image of the abdominal right upper quadrant was obtained utilizing 3 minutes 17 seconds fluoroscopy time FINDINGS: Proximal portion of a right ureteral stent is noted which appears to be in satisfactory positioning. The distal portion of the stent is not imaged. IMPRESSION: Fluoroscopic assistance as above. Please see procedural report for further details. The above report was generated using voice recognition software. It may contain grammatical, syntax or spelling errors. Electronically signed by: Ruben Silva M.D. 01/29/2019 7:48 PM Dictated: 01/29/191945 Transcribed: 01/29/191945 XR chest 1V portable HISTORY: 73 years-old Male fever acute fever COMPARISON: CT abdomen and pelvis of same day, acute abdominal series radiographs 01/27/2019, CTA chest 10/30/2017. TECHNIQUE: Portable AP view of the chest FINDINGS: Cardiomediastinal and hilar silhouettes appear unchanged. Prior median sternotomy with prosthetic aortic valve. Chronic interstitial coarsening is again noted. Subsegmental bibasilar opacities have slightly progressed from 01/27/2019. No pneumothorax, large pleural effusion or overt pulmonary edema. Degenerative changes of the shoulders and spine. IMPRESSION: 1. Chronic interstitial coarsening. 2. Slight progression of bibasilar opacities from 01/27/2019 suggestive of probable atelectasis. The above report was generated using voice recognition software. It may contain grammatical, syntax or spelling errors. Electronically signed by: Ruebn Silva M.D. 01/29/2019 10:01 PM Dictated: 01/29/192157 Transcribed: 01/29/192157 XR chest 1V portable CLINICAL HISTORY: sepsis dyspnea COMPARISON STUDY: 01/29/2018 FINDINGS: Stable bibasilar atelectasis. Prior median sternotomy. Mild chronic fullness of the pulmonary vasculature. IMPRESSION: Unchanged exam. Bibasilar interstitial prominence unaltered The above report was generated using voice recognition software. It may contain grammatical, syntax or spelling errors. Electronically signed by: Pepe Bardales M.D. 01/30/2019 6:51 AM Dictated: 01/30/19647 Transcribed: 01/30/19647 Hospital Course (1) Gram negative sepsis: Chronic abdominal pain, worse day of admission, but no flank pain per se, dysuria, or hematuria. Meet sepsis criteria with Elevated WBC, febrile and elevated lactate Was transferred to The ICU due to Hypotension and required pressor. He has been off pressor Procalcitonin elevated CT abd & pelvis showed obstructing right ureteral calculus with hydronephrosis Blood cx on 01/28 positive for pseudomonas Pneumonia and proteus ID on board Was on Zosyn IV, transition to Rocephin by the Critical care team Repeat blood cx on 01/30 showed no growth Continue Rocephin IV daily for now ID recommended to transition to Omnicef on discharge to complete 14 days course of abx starting from 01/30/19 Follow up with PCP (2) Syncope: Possible vasovagal Head CT and MRI showed no acute finding Carotid doppler showed no hemodynamically significant stenosis. EEG showed no seizure activity EEG showed no evidence for potentially epileptogenic activity No significant structural disease involving the brain and there is no justification for anticonvulsant therapy as per neurology Fall precaution Continue PT/OT Right ureteral calculus Sepsis from obstructing right proximal ureteral calculus. Urology consulted S/P Right Stent, Cystoscopy / fulguration of prostate performed on 01/[address] Kareem Kenyon Waldron cath was re-inserted last night today due to urinary retention Case discussed with Dr. Serna over the phone and OK to discharge with the Waldron Dr. Serna office will contact pt on Monday for follow for waldron removal after void trial in the office Follow up with urology for stent removal in 3 weeks Acute kidney injury Mostly related to obstructing renal calculi and hydronephrosis Creatinine 1.22 at time of admission Creatinine increased to 2.29 Creatinine improved to 1.2 after IVF Resolved Aortic valve replaced History of endocarditis with cardioemboli. ECHO showed abnormal septal wall motion consistent with post-operative state with EF 60-65%. No indication of vegetation noted. Stable HTN (hypertension) Was required pressor due to Low BP BP starts to elevate Continue metoprolol Monitor BP closely DM type 2 Continue insulin per protocol. Hypothyroidism Continue levothyroxine. AML (acute myeloid leukemia) Management per Hematology. THROMBOCYTOPENIA Chronic thrombocytopenia. Platelet count 53 No sign of bleeding Monitor CBC VTE prophylaxis No anticoagulants due to thrombocytopenia. SCDs ordered. Ambulate. Disposition Will discharge home today Medical follow-up with Dr. Peña. Total Time Total Time Spent Total Time Spent (In Minutes): 35 minutes Total Time Includes: Examination of the Patient, Discharge Planning, Medication Reconciliation, Communication With Other Providers and Other Discharge Plan Discharge Items Patient Disposition: Home - Self-Care Reason For Visit: STROKE LIKE SYMPTOMS Discharge Diagnosis: Gram negative sepsis Syncope Right ureteral calculus Acute kidney injury Aortic valve replaced HTN (hypertension) Diabetes Thrombocytopenia AML (acute myeloid leukemia) Hypothyroidism Discharge Goals: Decrease discomfort, Improve disease control, Improve function and Increase independence Activity: Resume your previous activity Activity Comment: As tolerated Non-emergency contact: Primary Care Provider and Urologist Call non-emergency contact if: you have any medication questions and your temperature is above 101 Follow-up/Referrals: Sonja Peña DO [Primary Care Provider] - Diet: Carb Consistent or DM2 Addtl Provider Instructions: Will discharge with waldron catheter Follow up with your primary care provider within 1 week ( Dr. Peña's office will call you on Monday for the follow up appointment) Follow up with Urology Dr. Serna ( Dr. Serna' office will call you on Monday for the follow up appointment) Waldron catheter will be removed next week at your next follow up appointment with Dr. Serna Complete course of antibiotic with Omnicef Check CBC within 1 week to monitor platelet level Avoid any NSAIDS such as (Motrin, Aleve, Naproxen, Advil, Ibuprofen, ...) due to increase risk of bleeding Fall precaution Prescriptions: New cefdinir 300 mg Capsule 300 mg PO BID 10 Days Qty: 20 RF: 0 Continued levothyroxine 112 mcg tablet 112 mcg PO QAM RF: 0 dicyclomine 10 mg capsule 10 mg PO AC RF: 0 tamsulosin 0.4 mg capsule 0.4 mg PO QAM RF: 0 potassium chloride 20 mEq tablet extended release 20 meq PO DAILY PRN (Reason: Hypokalemia) RF: 0 finasteride 5 mg tablet 5 mg PO HS RF: 0 Probiotic 3 billion cell Capsule 3,000 mmu cells PO UD RF: 0 simethicone [Gas-X Extra Strength] 125 mg Capsule 125 mg PO ACHS RF: 0 acetaminophen [Tylenol Extra Strength] 500 mg Tablet 500 mg PO QID PRN (Reason: Pain) RF: 0 Lantus U-100 Insulin 100 unit/mL Solution 8 unit SUBCUT HS RF: 0 insulin lispro [Humalog KwikPen Insulin] 100 unit/mL Insulin Pen subcut AC PRN (Reason: Hyperglycemia) RF: 0 metoprolol tartrate 25 mg Tablet 12.5 mg PO HS RF: 0 Stand-Alone Forms: [facility] Discharge Orders: Discharge Order (Routine); Ordered 02/02/19 Ordered By: Ezio Posey Admission Data Admit Date/Time: 01/26/19 23:44 Attending Provider: Ezio Posey Admit Provider: David Jordan Primary Care Provider: Sonja Peña Other Providers: David Jordan ; Seth Figueroa ; Michelle Serna ; Hasmukh Carranza ; Michelle Arguelles Service: Telemetry Medical Other Interventions: Discharge Summary Assessment (RN) Last Done: 02/02/19 14:43 DC Date/Time DO NOT enter until pt leaves facility: 02/02/19 15:17
== END 2019-02-02 15:17 | disposition home or self-care (01) | DRG 659 ==
LOC: ED 20:14 → 2S 23:44 → SUATTDRO 23:44 → 2S 01-27 00:09 → 1E 01-29 20:08 → 2N 01-30 19:38

== ENCOUNTER 2021-06-09 04:12 | Inpatient (IN) ==
[2021-06-09] MEDS ORDERED: SODIUM CHLORIDE 0.9% 1000ML 500 ML IV ONE (04:19)
--- NOTE | 2021-06-09 04:21 | Emergency Department Note ---
Impression & Plan Seizure, Urinary retention ADMIT ED Provider Note HPI: Patient arrived to the ED via EMS ambulance The patient is a 76-year-old male with history of chronic renal disease, type 2 diabetes, history of CVA with residual right-sided deficits, history of discitis status post spinal surgery performed at [facility], history of AML with bone marrow transplant that was subsequently complicated by [id number] disease, no longer on immunotherapy, presents the emergency department with a chief complaint of strokelike/seizure-like episode. Per EMS report, patient began some type of "shaking" that was witnessed by his when he was in bed this evening. On their arrival he was noted to have some right-sided facial droop, also reported to have some left-sided weakness. On arrival here to the ED the patient is alert, he tells me he does not remember the events that led to him being brought here to the ED. He does have some mild right-sided facial droop but otherwise does not have any focal deficits. He is noted to have a history of CVA, unclear whether or not his right-sided facial droop could be a residual deficit, he tells me he does not believe he has had this before. He seems very mildly confused on arrival but is otherwise a fair historian. He denies any chest pain or shortness of breath, states he does have some upper back pain. He ambulates his extremities spontaneously and is otherwise nontoxic-appearing on my initial assessment. He is protecting his airway appropriately. ROS: -Neuro: Seizure-like event/strokelike event *10 point review systems was conducted and is otherwise negative unless stated above *Outpatient medications and allergy history reviewed PE: General: Alert, NAD HEENT: Normocephalic, atraumatic, trachea midline Eyes: Extraocular eye movement is intact, no scleral erythema Pulmonary: Clear to auscultation bilaterally, no wheezing Cardio: Regular rate and rhythm GI: Abdomen is soft, nontender : No suprapubic tenderness, L flank tender to palpation MSK: No evidence of trauma or malformation of the extremities, no edema Skin: No evidence of rash Neuro: Alert, mild to moderate right-sided facial droop is appreciated, there is no drift of the upper extremities or lower extremities with testing against gravity, there is no ataxia on [id number] testing bilaterally Psychiatric: Cooperative CT HEAD: Comparison MRI brain from January 27, 2019. Multiple scattered periventricular, basal ganglia, and left frontal lobe deep white matter low-density as well as left frontal cortex lesion consistent with old infarcts, similar to the comparison examination. There is no evidence of a cute large vessel infarct or intracranial hemorrhage. The ventricles are nondilated. The CSF spaces are within normal limits. There is a trace amount of mucosal thickening in several of the right ethmoid air cells as well as the right maxillary sinus, likely mild chronic sinusitis. No gas fluid levels are seen. No skull fracture or scalp hematoma is seen. Radiologist: Mikel Woodson MD CTA HEAD: The petrous, cavernous and supraclinoid portions of the internal carotid arteries are patent with mild atherosclerotic changes noted bilaterally. The A1 segments and anterior cerebral arteries are patent. The M1 segments and distal middle cerebral branches are patent. No dissection, occlusion or aneurysm. The distal cervical vertebral arteries are patent. Basilar artery and posterior cerebral arteries are patent. No stenosis, occlusion or aneurysm. No abnormal enhancement following contrast administration. The visualized dural sinuses are unremarkable. Radiologist: Felix Quevedo MD CTA NECK: The included proximal great vessels are unremarkable. The bilateral common, internal and external carotid arteries are unremarkable without evidence for dissection, stenosis or occlusion. The vertebral arteries are codominant and are patent. No evidence of dissection or high grade stenosis. Visualized portions of the lung apices are clear. Soft tissues and osseous s tructures are unremarkable. Radiologist: Felix Quevedo MD NIH STROKE SCALE: 1A: Level of consciousness Alert; keenly responsive 0 1B: Ask month and age Both questions right 0 1C: 'Blink eyes' & 'squeeze hands' Performs both tasks 0 2: Horizontal extraocular movements Normal 0 3: Visual campbell No visual loss 0 4: Facial palsy Moderate paralysis (lower face) +2 5A: Left arm motor drift No drift for 10 seconds 0 5B: Right arm motor drift No drift for 10 seconds 0 6A: Left leg motor drift No drift for 5 seconds 0 6B: Right leg motor drift No drift for 5 seconds 0 7: Limb Ataxia No ataxia 0 8: Sensation Normal; no sensory loss 0 9: Language/aphasia Normal; no aphasia 0 10: Dysarthria Normal 0 11: Extinction/inattention No abnormality 0 TOTAL 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 Patient's later did arrive at the bedside and states that his right-sided facial droop is actually residual from his previous CVA. On arrival to the ED the patient is somewhat slow to respond to questions but is alert, he is hemodynamically stable on arrival, he does not display any focal deficits aside from his known right- sided facial droop from previous CVA. He is otherwise in no acute distress. He was last known well sometime around 10 PM per report, this is when he went to bed. He is not considered a candidate for TPA secondary to being outside the window in addition to resolution of previously noted symptoms. CT angiography of the head neck is unrevealing for any evidence of large vessel occlusion, CT imaging of the head does not show any evidence of acute intracranial process. Lab work is generally unremarkable, creatinine elevation is the patient's baseline renal function. Urinalysis does not show any evidence of infection. Patient complained of some left flank pain sometime later in his stay here in the ED, CT imaging of the abdomen pelvis was ordered without IV contrast that does not show any evidence of kidney stone, there is marked bladder distention on CT imaging therefore Osman catheter was placed and approximately 900 cc of yellow urine was drained. My reassessment patient is r esting comfortably. He was given a load of Keppra over concern for possible seizure. His describes to me an event that lasted about 10 to 15 seconds where the patient exhibited some tonic-clonic jerking of the upper extremities, he had a postictal state for about half an hour afterwards while EMS was being contacted to bring the patient to the ED. Patient's does tell me he had a similar event several years ago, at that time he did have a work-up done including a negative EEG. Despite negative CT imaging I do think the patient would benefit from an MRI and admission to the hospital for further management likely neurology consultation. Case was discussed with the on-call midlevel provider for the [facility] service, Jing, and patient was admitted to a telemetry bed in stable condition for further work-up. Patient and his are updated on the above findings, patient and his at the bedside are in agreement to the above plan. Diagnosis: 1. Seizure-like event 2. Urinary retention secondary to prostate enlargement 3. 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 Anemia of chronic disease Bacteremia due to Gram-positive bacteria Candidemia Chronic kidney disease Chronic renal disease, stage 3, moderately decreased glomerular filtration rate (GFR) between 30-59 mL/min/1.73 square meter Diabetic nephropathy associated with type 2 diabetes mellitus Epidural abscess History of pneumonia TOLD CAUSED BY CHEMO, MAR 2017 AND RE-OCCURENCE OCTOBER 2017 - NONE SINCE History of sepsis [facility] , DISCHARGED SAT 02/02/19 SEPSIS, UTI/KIDNEY STONE - CONTINUES ABX TX SEPSIS JUN 2017 ABCESS OF SPINE LOWER BACK History of stroke MAR 2018 - [facility]...TX TO ELLERBE /TESTING SHOWED ENDOCARDITIS CAUSED STROKE RESIDUAL EFFECTS: SPEECH SLOW, MOUTH RIGHT SIDE SLIGHTLY DROOPY WHEN SMILES, WEAKER ON RIGHT SIDE THAN LEFT Hypothyroidism IBS (irritable bowel syndrome) Parotid tumor 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, September 2016 History of back surgery History of colonoscopy History of surgery PAROTID X2 History of surgery PEG TUBE AND SINCE REMOVED History of vascular access device INSERTION AND REMOVAL Family History Other Coronary heart disease Family history of diabetes mellitus in father Family history of diabetes mellitus in mother Stroke Thyroid disorder Social History Smoking Status: Never smoker Second Hand Exposure: No; Hx Alcohol Use: No Hx Substance Use: No Preferred Language: Belgian Communication Ability: Effective Workers Compensation Adjuster Required: No Beliefs That Will Affect Care: None marital status: Current Living Situation: Spouse current occupational status: retired Feels Safe at Home: Yes Assistive Devices: Glasses Allergies Allergies Allergy/AdvReac Type Severity Reaction Status Date / Time Influenza Virus Vaccines Allergy Mild Nausea Verified 05/07/21 12:00 duloxetine [From Cymbalta] AdvReac Hypertensio Unverified 06/09/21 08:11 n Home Meds Home Medications Medication Instructions Recorded Confirmed acetaminophen 500 mg tablet 500 mg PO QID PRN 07/10/18 06/09/21 (Tylenol Extra Strength) lactobacillus combination no.4 3 3,000 mmu cells PO QAM 01/26/19 06/09/21 billion cell capsule (Probiotic) potassium chloride 20 mEq 20 meq PO DAILY PRN 01/26/19 06/09/21 tablet,extended release tamsulosin 0.4 mg capsule 0.4 mg PO QAM 01/26/19 06/09/21 lysine 500 mg tablet 500 mg PO DAILY 11/25/19 06/09/21 amitriptyline 25 mg tablet 25 mg PO HS tab 02/28/20 06/09/21 dicyclomine 10 mg capsule 10 mg PO AC PRN 02/28/20 06/09/21 cyanocobalamin (vitamin B-12) 1,000 mcg PO DAILY 07/29/20 06/09/21 1,000 mcg tablet turmeric root extract 500 mg 500 mg PO DAILY 07/29/20 06/09/21 capsule finasteride 5 mg tablet 5 mg PO HS 08/17/20 06/09/21 metoprolol succinate 25 mg 12.5 mg PO DAILY tab 08/17/20 06/09/21 tablet,extended release 24 hr (Toprol XL) simethicone 125 mg capsule (Gas-X 125 mg PO ACHS PRN 08/17/20 06/09/21 Extra Strength) zinc gluconate 30 mg tablet 50 mg PO DAILY tab 08/17/20 06/09/21 amlodipine 5 mg tablet (Norvasc) 5 mg PO DAILY 06/03/21 06/09/21 fluoride (sodium) 1.1 % dental 1 ea DENTAL UD 06/03/21 06/09/21 paste (PreviDent 5000 Booster Plus) Previous Rx's Medication Instructions Recorded insulin glargine 100 unit/mL (3 12 unit SQ DAILY #15 ml 08/17/20 mL) subcutaneous pen (Lantus Solostar U-100 Insulin) levothyroxine 125 mcg tablet 125 mcg PO DAILY #90 tab 02/23/21 Results & Data (ED) Vital Signs Vital Signs - 24 hr 06/09/21 04:15 06/09/21 06:21 06/09/21 08:02 Temperature 37 C Temperature Source Oral Pulse Rate 106 H Pulse Rate [Finger] 74 66 Respiratory Rate 18 20 18 Blood Pressure 172/84 H Blood Pressure [Right Arm] 145/68 H 148/66 H Blood Pressure Mean 113 Blood Pressure Mean [Right Arm] 93 93 Pulse Oximetry 95 92 95 Oxygen Delivery Method Room Air Room Air Sepsis Recent Fever Within 48 Hours No Sepsis New/Unexplained Change in Mental Status N/A Sepsis Action Taken by Nursing No Action Required Laboratory Data Result diagrams: 06/09/21 04:33 06/09/21 04:33 Lab Results 06/09/21 06/09/21 06/09/21 Range/Units 04:33 04:33 04:33 WBC 11.82 H (4.8-10.8) K/uL RBC 4.43 L (4.7-6.1) M/uL Hgb 13.3 L (14.0-18.0) g/dL Hct 39.1 L (42-52) % MCV 88.3 (80-100) fL MCH 30.0 (25-34) pg MCHC 34.0 (32-36) g/dL RDW Std Deviation 48.4 H (36.4-46.3) fL RDW Coeff of Paul 14.9 H (11.5-14.5) % Plt Count 115 L (130-400) K/uL MPV 10.2 (7.4-10.4) fL Immature Gran % (Auto) 0.8 % Neut % (Auto) 73.4 % Lymph % (Auto) 16.1 % [place] % (Auto) 8.2 % Eos % (Auto) 1.3 % Baso % (Auto) 0.2 % Neut # (Auto) 8.68 H (1.4-6.5) K/uL Lymph # (Auto) 1.90 (1.2-3.4) K/uL [place] # (Auto) 0.97 H (0.11-0.59) K/uL Eos # (Auto) 0.15 (0-0.5) K/uL Baso # (Auto) 0.02 (0-0.2) K/uL Immature Gran # (Auto) 0.10 H (0.00-0.02) K/uL PT 10.1 (9.0-12.0) Seconds INR 1.0 (0.9-1.1) APTT 26.0 (21.0-31.0) Seconds PTT Ratio 1.0 Sodium 137 (136-145) mmol/L Potassium 3.8 (3.5-5.1) mmol/L Chloride 105 (98-107) mmol/L Carbon Dioxide 24 (21-32) mmol/L Anion Gap 8.0 (3-11) BUN 22 H (7-18) mg/dl Creatinine 1.44 H (0.6-1.4) mg/dl Est Cr Clr Drug Dosing 36.4 ml/min Est GFR ( Amer) 55.1 ml/min Est GFR (Non-Af Amer) 47.5 ml/min BUN/Creatinine Ratio 15.5 (10-20) Glucose 161 H (70-99) mg/dl POC Glucose (70-99) mg/dl Lactate (0.4-2.0) mmol/L Calcium 9.2 (8.5-10.1) mg/dl Magnesium 2.4 (1.8-2.4) mg/dl Total Bilirubin 0.5 (0.2-1) mg/dl AST 34 (15-37) U/L ALT 69 (12-78) Alkaline Phosphatase 95 (45-117) U/L Troponin I 0.033 (0-0.045) ng/ml Total Protein 7.1 (6.4-8.2) gm/dl Albumin 4.0 (3.4-5.0) gm/dl Globulin 3.1 (2.5-4.0) gm/dl Albumin/Globulin Ratio 1.3 (0.9-2) Urine Color Urine Appearance (Clear) Urine pH (4.5-7.5) Ur Specific [place] (1.000-1.030) Urine Protein (Negative) Urine Glucose (UA) (Negative) Urine Ketones (Negative) Urine Blood (Negative) Urine Nitrite (Negative) Urine Bilirubin (Negative) Urine Urobilinogen (Negative) Ur Leukocyte Esterase (Negative) Urine WBC (Auto) (0-5) /hpf Urine RBC (Auto) (0-4) /hpf U Hyaline Cast (Auto) (0-5) /lpf U Epithel Cells (Auto) (0-5) /lpf Urine Bacteria (Auto) (Negative) SARS-CoV-2, RNA, NAAT (NEGATIVE) Blood Type Antibody Screen 06/09/21 06/09/21 06/09/21 Range/Units 04:33 04:42 04:45 WBC (4.8-10.8) K/uL RBC (4.7-6.1) M/uL Hgb (14.0-18.0) g/dL Hct (42-52) % MCV (80-100) fL MCH (25-34) pg MCHC (32-36) g/dL RDW Std Deviation (36.4-46.3) fL RDW Coeff of Paul (11.5-14.5) % Plt Count (130-400) K/uL MPV (7.4-10.4) fL Immature Gran % (Auto) % Neut % (Auto) % Lymph % (Auto) % [place] % (Auto) % Eos % (Auto) % Baso % (Auto) % Neut # (Auto) (1.4-6.5) K/uL Lymph # (Auto) (1.2-3.4) K/uL [place] # (Auto) (0.11-0.59) K/uL Eos # (Auto) (0-0.5) K/uL Baso # (Auto) (0-0.2) K/uL Immature Gran # (Auto) (0.00-0.02) K/uL PT (9.0-12.0) Seconds INR (0.9-1.1) APTT (21.0-31.0) Seconds PTT Ratio Sodium (136-145) mmol/L Potassium (3.5-5.1) mmol/L Chloride (98-107) mmol/L Carbon Dioxide (21-32) mmol/L Anion Gap (3-11) BUN (7-18) mg/dl Creatinine (0.6-1.4) mg/dl Est Cr Clr Drug Dosing ml/min Est GFR ( Amer) ml/min Est GFR (Non-Af Amer) ml/min BUN/Creatinine Ratio (10-20) Glucose (70-99) mg/dl POC Glucose (70-99) mg/dl Lactate 1.6 (0.4-2.0) mmol/L Calcium (8.5-10.1) mg/dl Magnesium (1.8-2.4) mg/dl Total Bilirubin (0.2-1) mg/dl AST (15-37) U/L ALT (12-78) Alkaline Phosphatase (45-117) U/L Troponin I (0-0.045) ng/ml Total Protein (6.4-8.2) gm/dl Albumin (3.4-5.0) gm/dl Globulin (2.5-4.0) gm/dl Albumin/Globulin Ratio (0.9-2) Urine Color Urine Appearance (Clear) Urine pH (4.5-7.5) Ur Specific Leeds (1.000-1.030) Urine Protein (Negative) Urine Glucose (UA) (Negative) Urine Ketones (Negative) Urine Blood (Negative) Urine Nitrite (Negative) Urine Bilirubin (Negative) Urine Urobilinogen (Negative) Ur Leukocyte Esterase (Negative) Urine WBC (Auto) (0-5) /hpf Urine RBC (Auto) (0-4) /hpf U Hyaline Cast (Auto) (0-5) /lpf U Epithel Cells (Auto) (0-5) /lpf Urine Bacteria (Auto) (Negative) SARS-CoV-2, RNA, NAAT NEGATIVE (NEGATIVE) Blood Type O Negative Antibody Screen NEGATIVE 06/09/21 06/09/21 Range/Units 05:40 08:08 WBC (4.8-10.8) K/uL RBC (4.7-6.1) M/uL Hgb (14.0-18.0) g/dL Hct (42-52) % MCV (80-100) fL MCH (25-34) pg MCHC (32-36) g/dL RDW Std Deviation (36.4-46.3) fL RDW Coeff of Paul (11.5-14.5) % Plt Count (130-400) K/uL MPV (7.4-10.4) fL Immature Gran % (Auto) % Neut % (Auto) % Lymph % (Auto) % [place] % (Auto) % Eos % (Auto) % Baso % (Auto) % Neut # (Auto) (1.4-6.5) K/uL Lymph # (Auto) (1.2-3.4) K/uL [place] # (Auto) (0.11-0.59) K/uL Eos # (Auto) (0-0.5) K/uL Baso # (Auto) (0-0.2) K/uL Immature Gran # (Auto) (0.00-0.02) K/uL PT (9.0-12.0) Seconds INR (0.9-1.1) APTT (21.0-31.0) Seconds PTT Ratio Sodium (136-145) mmol/L Potassium (3.5-5.1) mmol/L Chloride (98-107) mmol/L Carbon Dioxide (21-32) mmol/L Anion Gap (3-11) BUN (7-18) mg/dl Creatinine (0.6-1.4) mg/dl Est Cr Clr Drug Dosing ml/min Est GFR ( Amer) ml/min Est GFR (Non-Af Amer) ml/min BUN/Creatinine Ratio (10-20) Glucose (70-99) mg/dl POC Glucose 123 H (70-99) mg/dl Lactate (0.4-2.0) mmol/L Calcium (8.5-10.1) mg/dl Magnesium (1.8-2.4) mg/dl Total Bilirubin (0.2-1) mg/dl AST (15-37) U/L ALT (12-78) Alkaline Phosphatase (45-117) U/L Troponin I (0-0.045) ng/ml Total Protein (6.4-8.2) gm/dl Albumin (3.4-5.0) gm/dl Globulin (2.5-4.0) gm/dl Albumin/Globulin Ratio (0.9-2) Urine Color Yellow Urine Appearance Clear (Clear) Urine pH 5.5 (4.5-7.5) Ur Specific [place] 1.036 H (1.000-1.030) Urine Protein 1+ H (Negative) Urine Glucose (UA) Negative (Negative) Urine Ketones Trace H (Negative) Urine Blood 1+ H (Negative) Urine Nitrite Negative (Negative) Urine Bilirubin Negative (Negative) Urine Urobilinogen Negative (Negative) Ur Leukocyte Esterase Trace H (Negative) Urine WBC (Auto) 10-30 H (0-5) /hpf Urine RBC (Auto) 0-4 (0-4) /hpf U Hyaline Cast (Auto) 1-5 (0-5) /lpf U Epithel Cells (Auto) >30 H (0-5) /lpf Urine Bacteria (Auto) Negative (Negative) SARS-CoV-2, RNA, NAAT (NEGATIVE) Blood Type Antibody Screen Administered Medications Discontinued Medications Sodium Chloride (Nss 1000ml) 500 mls @ 999 mls/hr IV .Q31M ONE Stop: 06/09/21 04:49 Last Infusion: 06/09/21 06:44 Dose: 0 mls/hr Documented by: [id number] Admin: 06/09/21 05:22 Dose: 999 mls/hr Documented by: [id number] Levetiracetam 1,000 mg/ Sodium (Chloride) 110 mls @ 440 mls/hr IV NOW STA Stop: 06/09/21 08:01 Last Infusion: 06/09/21 08:20 Dose: 0 mls/hr Documented by: [id number] Admin: 06/09/21 08:04 Dose: 440 mls/hr Documented by: [id number] Ioversol (Optiray 320 125ml) 115 ml IV ONCE ONE Stop: 06/09/21 04:58 Last Admin: 06/09/21 04:57 Dose: 115 ml Documented by: [id number] Morphine Sulfate (Morphine Sulfate 4 Mg/Ml 1 Ml Carp\\Vial) 4 mg IV NOW STA Stop: 06/09/21 05:50 Last Admin: 06/09/21 05:59 Dose: 4 mg Documented by: [id number] Imaging Data Radiologist's Impression: Chest X-Ray 06/09/21 04:18 XR chest 1V portable CLINICAL HISTORY: Stroke Like Symptoms TECHNIQUE: Single frontal radiograph of the chest was obtained. Comparison: Comparison is made to chest one view 07/29/2020 FINDINGS: Median sternotomy wires are stable. The cardiomediastinal silhouette is normal. Prominence and cephalization of the vasculature is seen. No evidence of pleural effusion or pneumothorax. Multiple radiodensities are seen in the left upper extremity. IMPRESSION: Mild pulmonary edema. Radiodensities in the left upper extremity are new from prior exam, likely superficial. Clinical correlation is recommended. ACT 112: Negative or not required by law. Electronically signed by: Mayank Deshpande M.D. 06/09/2021 7:[address] 06/09/21 04:18 CT angio neck with con, CT angio head w con, CT head/brain wo con CLINICAL HISTORY: Stroke Like Symptoms TECHNIQUE: Contiguous axial CT images of the head were acquired from the base of the skull to the vertex without intravenous contrast administration. CT angiography of the head and neck was performed following intravenous administration of iodinated contrast. Coronal and sagittal MIPS were obtained from the axial data set and were submitted for review. Automated dose lowering techniques and/or adjustment according to patient size were utilized for this examination. All measurements were calculated based on NASCET criteria. Comparison: Comparison is made to CT head 04/04/2018 FINDINGS: CT head: There is no acute intracranial hemorrhage or evidence of acute territorial infarction. No shift of the midline structures, mass effect, or extra-axial abnormalities are shown. 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 Old lacunar infarcts in the bilateral external capsules are unchanged. Mucous thickening in the ethmoid air cells and right maxillary sinus. CTA Neck: A 3 vessel aortic arch is shown. There is no significant atherosclerotic plaque in the aortic arch or the origins of the innominate, left common carotid, and left subclavian arteries. There is mild tortuosity of the right internal carotid artery with nonhemodynamically significant stenosis. The vertebral arteries are codominant. There is a 15 mm subcutaneous fluid density lesion in the left neck which may represent a sebaceous cyst. 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 CTA Head: The anterior and posterior cerebral circulations are patent. No hemodynamically significant stenosis, aneurysm, dissection, or arteriovenous malformation is shown. Atherosclerotic disease is noted. IMPRESSION: 1. No acute intracranial hemorrhage, evidence of acute territorial infarction, or other acute intracranial disease process. Old infarcts are noted as above. 2. No occlusion, hemodynamically significant stenosis, aneurysm, dissection, or arteriovenous malformation in the major intracranial arteries. 3. No occlusion, hemodynamically significant stenosis, or dissection in the major cervical arteries. Assessment of stenosis of the internal carotid arteries is based on NASCET criteria. ACT 112: Negative or not required by law. Electronically signed by: Mayank Deshpande M.D. 06/09/2021 7:46 AM Head CTA 06/09/21 04:18 CT angio neck with con, CT angio head w con, CT head/brain wo con CLINICAL HISTORY: Stroke Like Symptoms TECHNIQUE: Contiguous axial CT images of the head were acquired from the base of the skull to the vertex without intravenous contrast administration. CT angiography of the head and neck was performed following intravenous administration of iodinated contrast. Coronal and sagittal MIPS were obtained from the axial data set and were submitted for review. Automated dose lowering techniques and/or adjustment according to patient size were utilized for this examination. All measurements were calculated based on NASCET criteria. Comparison: Comparison is made to CT head 04/04/2018 FINDINGS: CT head: There is no acute intracranial hemorrhage or evidence of acute territorial infarction. No shift of the midline structures, mass effect, or extra-axial abnormalities are shown. 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 Old lacunar infarcts in the bilateral external capsules are unchanged. Mucous thickening in the ethmoid air cells and right maxillary sinus. CTA Neck: A 3 vessel aortic arch is shown. There is no significant atherosclerotic plaque in the aortic arch or the origins of the innominate, left common carotid, and left subclavian arteries. There is mild tortuosity of the right internal carotid artery with nonhemodynamically significant stenosis. The vertebral arteries are codominant. There is a 15 mm subcutaneous fluid density lesion in the left neck which may represent a sebaceous cyst. 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 CTA Head: The anterior and posterior cerebral circulations are patent. No hemodynamically significant stenosis, aneurysm, dissection, or arteriovenous malformation is shown. Atherosclerotic disease is noted. IMPRESSION: 1. No acute intracranial hemorrhage, evidence of acute territorial infarction, or other acute intracranial disease process. Old infarcts are noted as above. 2. No occlusion, hemodynamically significant stenosis, aneurysm, dissection, or arteriovenous malformation in the major intracranial arteries. 3. No occlusion, hemodynamically significant stenosis, or dissection in the major cervical arteries. Assessment of stenosis of the internal carotid arteries is based on NASCET criteria. ACT 112: Negative or not required by law. Electronically signed by: Mayank Deshpande M.D. 06/09/2021 7:46 AM Neck CTA 06/09/21 04:18 CT angio neck with con, CT angio head w con, CT head/brain wo con CLINICAL HISTORY: Stroke Like Symptoms TECHNIQUE: Contiguous axial CT images of the head were acquired from the base of the skull to the vertex without intravenous contrast administration. CT angiography of the head and neck was performed following intravenous administration of iodinated contrast. Coronal and sagittal MIPS were obtained from the axial data set and were submitted for review. Automated dose lowering techniques and/or adjustment according to patient size were utilized for this examination. All measurements were calculated based on NASCET criteria. Comparison: Comparison is made to CT head 04/04/2018 FINDINGS: CT head: There is no acute intracranial hemorrhage or evidence of acute territorial infarction. No shift of the midline structures, mass effect, or extra-axial abnormalities are shown. 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 Old lacunar infarcts in the bilateral external capsules are unchanged. Mucous thickening in the ethmoid air cells and right maxillary sinus. CTA Neck: A 3 vessel aortic arch is shown. There is no significant atherosclerotic plaque in the aortic arch or the origins of the innominate, left common carotid, and left subclavian arteries. There is mild tortuosity of the right internal carotid artery with nonhemodynamically significant stenosis. The vertebral arteries are codominant. There is a 15 mm subcutaneous fluid density lesion in the left neck which may represent a sebaceous cyst. 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 CTA Head: The anterior and posterior cerebral circulations are patent. No hemodynamically significant stenosis, aneurysm, dissection, or arteriovenous malformation is shown. Atherosclerotic disease is noted. IMPRESSION: 1. No acute intracranial hemorrhage, evidence of acute territorial infarction, or other acute intracranial disease process. Old infarcts are noted as above. 2. No occlusion, hemodynamically significant stenosis, aneurysm, dissection, or arteriovenous malformation in the major intracranial arteries. 3. No occlusion, hemodynamically significant stenosis, or dissection in the andrey or cervical arteries. Assessment of stenosis of the internal carotid arteries is based on NASCET criteria. ACT 112: Negative or not required by law. Electronically signed by: Mayank Deshpande M.D. 06/09/2021 7:46 AM Abdomen/Pelvis CT 06/09/21 05:43 CT abd pelvis wo con CLINICAL HISTORY: L flankpain TECHNIQUE: Helical axial images of the abdomen and pelvis were obtained. Automated dose lowering techniques and/or adjustment according to patient size were utilized for this exam. This exam was performed without intravenous contrast. COMPARISON: Comparison is made to CT abdomen pelvis 01/29/2019 FINDINGS: Lower chest: Bilateral lower lobe predominant interstitial prominence is seen. Liver: Unremarkable. No focal lesions are seen. Gallbladder and biliary tree: Cholelithiasis is seen without evidence of c holecystitis. No intra- or extrahepatic biliary ductal dilation. Pancreas: The pancreas is atrophic. Spleen: Unremarkable. 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 Kidneys and ureters: No evidence of hydronephrosis or obstructive nephrolithiasis. Bladder: The bladder is distended. Reproductive organs: Marked prostatomegaly is seen measuring 6.5 cm in diameter. Bowel: Diverticulosis is seen without evidence of diverticulitis. The appendix is normal. A hiatal hernia is seen. Lymph nodes Retroperitoneal: Unremarkable. Mesenteric: Unremarkable. Pelvic: Unremarkable. Peritoneum: Normal Vessels: Atherosclerotic calcifications are seen. Abdominal wall: Unremarkable. Bones: Degenerative changes in the visualized spine. IMPRESSION: 1. No evidence of hydronephrosis or nephrolithiasis. 2. Marked prostatomegaly with bladder distention. ACT 112: Negative or not required by law. Electronically signed by: Mayank Deshpande M.D. 06/09/2021 7:53 AM Discharge Plan Visit Data Chief Complaint: Seizure Stated Complaint: SEIZURE ED Provider: Pepe Chavarria Discharge Problem: Seizure, Urinary retention Forms Stand Alone Forms: [facility] [place] Prescriptions Prescriptions: No Action Lantus Solostar U-100 Insulin 100 unit/mL (3 mL) insulin pen 12 unit SQ DAILY Qty: 15 RF: 5 levothyroxine 125 mcg tablet 125 mcg PO DAILY Qty: 90 RF: 1 lysine 500 mg tablet 500 mg PO DAILY RF: 0 amitriptyline 25 mg tablet 25 mg PO HS RF: 0 zinc gluconate 30 mg tablet 50 mg PO DAILY RF: 0 metoprolol succinate [Toprol XL] 25 mg tablet extended release 24 hr 12.5 mg PO DAILY RF: 0 tamsulosin 0.4 mg capsule 0.4 mg PO QAM RF: 0 potassium chloride 20 mEq tablet extended release 20 meq PO DAILY PRN (Reason: Hypokalemia) RF: 0 Probiotic 3 billion cell Capsule 3,000 mmu cells PO QAM RF: 0 dicyclomine 10 mg capsule 10 mg PO AC PRN (Reason: Abdominal Discomfort) RF: 0 finasteride 5 mg tablet 5 mg PO HS RF: 0 acetaminophen [Tylenol Extra Strength] 500 mg Tablet 500 mg PO QID PRN (Reason: Pain) RF: 0 simethicone [Gas-X Extra Strength] 125 mg capsule 125 mg PO ACHS PRN (Reason: Stomach Upset) RF: 0 cyanocobalamin (vitamin B-12) 1,000 mcg Tablet 1,000 mcg PO DAILY RF: 0 turmeric root extract 500 mg Capsule 500 mg PO DAILY RF: 0 amlodipine [Norvasc] 5 mg tablet 5 mg PO DAILY RF: 0 fluoride (sodium) [PreviDent 5000 Booster Plus] 1.1 % paste 1 ea dental UD RF: 0 Referrals Referrals: Alena Lang MD [Primary Care Provider] -
[2021-06-09 04:49] LABS: Basophils # (auto) 0.02 K/uL (0-0.2); Basophils % (auto) 0.2 %; Eosinophils # (auto) 0.15 K/uL (0-0.5); Eosinophils % (auto) 1.3 %; Hematocrit (blood only) 39.1 % (42-52); Hemoglobin 13.3 g/dL (14.0-18.0); Immature Granulocytes % (auto) 0.8 %; Lymphocytes % (auto) 16.1 %; Mean Corpuscular Volume 88.3 fL (80-100); Mean Platelet Volume 10.2 fL (7.4-10.4); Monocytes # (auto) 0.97 K/uL (0.11-0.59); Monocytes % (auto) 8.2 %; Neutrophils # (auto) 8.68 K/uL (1.4-6.5); Neutrophils % (auto) 73.4 %; Platelet Count 115 K/uL (130-400); RDW Coefficient of Variation 14.9 % (11.5-14.5); RDW Standard Deviation 48.4 fL (36.4-46.3); Red Blood Count 4.43 M/uL (4.7-6.1); White Blood Count 11.82 K/uL (4.8-10.8)
[2021-06-09] MEDS ORDERED: OPTIRAY 320 125ml IV ONE (04:57)
[2021-06-09 04:58] LABS: Prothrombin Time 10.1 Seconds (9.0-12.0)
[2021-06-09 05:06] LABS: BUN Creatinine Ratio 15.5 (10-20); Calcium 9.2 mg/dl (8.5-10.1); Creatinine Clr Calc Pharmacy 36.4 ml/min; Est GFR (African American) 55.1 ml/min; Est GFR (Non-African American) 47.5 ml/min; Magnesium 2.4 mg/dl (1.8-2.4); Potassium 3.8 mmol/L (3.5-5.1)
[2021-06-09 05:11] LABS: Albumin Globulin Ratio 1.3 (0.9-2); Bilirubin,Total 0.5 mg/dl (0.2-1); Globulin 3.1 gm/dl (2.5-4.0); Total Protein 7.1 gm/dl (6.4-8.2); Troponin I 0.033 ng/ml (0-0.045)
[2021-06-09] MEDS ORDERED: MoRPHine SULFATE 4 MG/ML 1 ML CARP\\VIAL IV STA (05:49)
[2021-06-09 07:15] LABS: Appearance Urine Clear (Clear); Bacteria Urine Automated Negative (Negative); Bilirubin Urine Negative (Negative); Blood Urine 1+ (Negative); Color Urine Yellow; Epithelial Cell Urine Auto >30 /lpf (0-5); Glucose Urine UA Negative (Negative); Ketones Urine Trace (Negative); Leukocyte Esterase Urine Trace (Negative); Nitrite Urine Negative (Negative); Protein Urine 1+ (Negative); RBC Urine Automated 0-4 /hpf (0-4); Specific Gravity Urine 1.036 (1.000-1.030); Urobilinogen Urine Negative (Negative); pH Urine 5.5 (4.5-7.5)
--- NOTE | 2021-06-09 07:24 | XRay Report ---
XR chest 1V portable CLINICAL HISTORY: Stroke Like Symptoms TECHNIQUE: Single frontal radiograph of the chest was obtained. Comparison: Comparison is made to chest one view 07/29/2020 FINDINGS: Median sternotomy wires are stable. The cardiomediastinal silhouette is normal. Prominence and cephal ization of the vasculature is seen. No evidence of pleural effusion or pneumothorax. Multiple radiode nsities are seen in the left upper extremity. IMPRESSION: Mild pulmonary edema. Radiodensities in the left upper extremity are new from prior exam, likely supe rficial. Clinical correlation is recommended. ACT 112: Negative or not required by law. Electronically signed by: Mayank Deshpande M.D. 06/09/2021 7:23 AM
[2021-06-09] MEDS ORDERED: levETIRAcetam 1,000 MG in 0.9 % SODIUM CHLORIDE 100 ML IV STA (07:47)
--- NOTE | 2021-06-09 07:47 | CT Scan Report ---
CT angio neck with con, CT angio head w con, CT head/brain wo con CLINICAL HISTORY: Stroke Like Symptoms TECHNIQUE: Contiguous axial CT images of the head were acquired from the base of the skull to the edna kb without intravenous contrast administration. CT angiography of the head and neck was performed f ollowing intravenous administration of iodinated contrast. Coronal and sagittal MIPS were obtained fr om the axial data set and were submitted for review. Automated dose lowering techniques and/or adjus tment according to patient size were utilized for this examination. All measurements were calculated based on NASCET criteria. Comparison: Comparison is made to CT head 04/04/2018 FINDINGS: CT head: There is no acute intracranial hemorrhage or evidence of acute territorial infarction. No sh ift of the midline structures, mass effect, or extra-axial abnormalities are shown. 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 Old lacunar infarcts in the bilateral external capsules are unchanged. Mucous thickening in the ethmoid air cells and right maxillary sinus. CTA Neck: A 3 vessel aortic arch is shown. There is no significant atherosclerotic plaque in the aor tic arch or the origins of the innominate, left common carotid, and left subclavian arteries. There is mild tortuosity of the right internal carotid artery with nonhemodynamically significant stenosis . The vertebral arteries are codominant. There is a 15 mm subcutaneous fluid density lesion in the le ft neck which may represent a sebaceous cyst. 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 CTA Head: The anterior and posterior cerebral circulations are patent. No hemodynamically significan t stenosis, aneurysm, dissection, or arteriovenous malformation is shown. Atherosclerotic disease is noted. IMPRESSION: 1. No acute intracranial hemorrhage, evidence of acute territorial infarction, or other acute intrac ranial disease process. Old infarcts are noted as above. 2. No occlusion, hemodynamically significant stenosis, aneurysm, dissection, or arteriovenous malfor mation in the major intracranial arteries. 3. No occlusion, hemodynamically significant stenosis, or dissection in the major cervical arteries. Assessment of stenosis of the internal carotid arteries is based on NASCET criteria. ACT 112: Negative or not required by law. Electronically signed by: Mayank Deshpande M.D. 06/09/2021 7:46 AM
--- NOTE | 2021-06-09 07:54 | CT Scan Report ---
CT abd pelvis wo con CLINICAL HISTORY: L flankpain TECHNIQUE: Helical axial images of the abdomen and pelvis were obtained. Automated dose lowering tech niques and/or adjustment according to patient size were utilized for this exam. This exam was perfor med without intravenous contrast. COMPARISON: Comparison is made to CT abdomen pelvis 01/29/2019 FINDINGS: Lower chest: Bilateral lower lobe predominant interstitial prominence is seen. Liver: Unremarkable. No focal lesions are seen. Gallbladder and biliary tree: Cholelithiasis is seen without evidence of cholecystitis. No intra- or extrahepatic biliary ductal dilation. Pancreas: The pancreas is atrophic. Spleen: Unremarkable. 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 Kidneys and ureters: No evidence of hydronephrosis or obstructive nephrolithiasis. Bladder: The bladder is distended. Reproductive organs: Marked prostatomegaly is seen measuring 6.5 cm in diameter. Bowel: Diverticulosis is seen without evidence of diverticulitis. The appendix is normal. A hiatal he rnia is seen. Lymph nodes Retroperitoneal: Unremarkable. Mesenteric: Unremarkable. Pelvic: Unremarkable. Peritoneum: Normal Vessels: Atherosclerotic calcifications are seen. Abdominal wall: Unremarkable. Bones: Degenerative changes in the visualized spine. IMPRESSION: 1. No evidence of hydronephrosis or nephrolithiasis. 2. Marked prostatomegaly with bladder distention. ACT 112: Negative or not required by law. Electronically signed by: Mayank Deshpande M.D. 06/09/2021 7:53 AM
[2021-06-09] MEDS: ACETAMINOPHEN 325 MG TAB PO PRN ×2 (11:02→22:10)
--- NOTE | 2021-06-09 11:10 | History & Physical Report ---
Date of Service June 09, 2021 Assessment & Plan (1) Seizure: Plan: Pt with episode of seizure-like activity last night. No hx of seizure disorder but had a similar episode in 2019 thought secondary to sepsis, negative EEG at the time. - Admit for additional work-up - Check MRI of brain - Consult neurology - Seizure precautions (2) Urinary retention: Plan: Pt with history of BPH, currently medically management although potential surgical intervention has apparently been discussed. Osman placed in ED with return of 800 cc of urine. - Continue Osman - Bladder scan prn - Consult urology for additional recommendations - Continue outpatient meds (3) Type 2 diabetes mellitus, with long-term current use of insulin: Plan: Follows with [facility] Endocr[facility]ology. Per , pt has issues with hypoglycemia during hospitalizations previously - Insulin sliding scale - Accuchecks - Check A1c - Lantus 10 units HS - if episodes of hypoglycemia while admitted then can decrease further (4) Chronic renal disease, stage 3, moderately decreased glomerular filtration rate (GFR) between 30-59 mL/min/1.73 square meter: Plan: Creatinine appears to be at baseline - follow labs (5) Hypothyroidism: Plan: TSH in ED elevated last week but T4 normal - pt to f/u with endocrinology as outpatient (6) Acute myelogenous leukemia in remission: Plan: Pt seen and reviewed with collaborating physician, Dr. Akers. Plan of care discussed and as outlined above. 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 History obtained from pt and his at the bedside. Pt with history of mild cognitive impairment since CVA so provides many of the details. Around 2:30 am today, pt's woke up to the bed shaking from the patient having what she describes as the pt's entire body shaking. It was dark so she had difficulty assessing exactly which portions were affected. This lasted several seconds and then the patient apparently went unresponsive but was still breathing. EMS was called and pt was reportedly still unresponsive on their arrival but gradually regained awareness in the ambulance. His thinks this decreased responsiveness lasted about 20-30 minutes. No incontinence, no tongue-biting. Pt reportedly had a similar episode in 2019 that was attributed to sepsis after an EEG was negative. The patient reports feeling in his usual state of health last evening when he went to bed. Denies any recent illness. Allergies Allergy/AdvReac Type Severity Reaction Status Date / Time duloxetine [From Cymbalta] AdvReac Mild Hypertensio Unverified 06/09/21 10:05 n Influenza Virus Vaccines AdvReac Mild Nausea Verified 06/09/21 10:05 Home Medications Medication Instructions Recorded Confirmed Type acetaminophen 500 mg tablet 500 mg PO QID PRN 07/10/18 06/09/21 History (Tylenol Extra Strength) lactobacillus combination no.4 3 3,000 mmu cells PO QAM 01/26/19 06/09/21 History billion cell capsule (Probiotic) potassium chloride 20 mEq 20 meq PO DAILY PRN 01/26/19 06/09/21 History tablet,extended release tamsulosin 0.4 mg capsule 0.4 mg PO QAM 01/26/19 06/09/21 History lysine 500 mg tablet 500 mg PO DAILY 11/25/19 06/09/21 History amitriptyline 25 mg tablet 25 mg PO HS tab 02/28/20 06/09/21 History dicyclomine 10 mg capsule 10 mg PO AC PRN 02/28/20 06/09/21 History cyanocobalamin (vitamin B-12) 1,000 mcg PO DAILY 07/29/20 06/09/21 History 1,000 mcg tablet turmeric root extract 500 mg 500 mg PO DAILY 07/29/20 06/09/21 History capsule finasteride 5 mg tablet 5 mg PO QAM 08/17/20 06/09/21 History metoprolol succinate 25 mg 12.5 mg PO QPM tab 08/17/20 06/09/21 History tablet,extended release 24 hr (Toprol XL) simethicone 125 mg capsule (Gas-X 80 mg PO ACHS PRN 08/17/20 06/09/21 History Extra Strength) zinc gluconate 30 mg tablet 50 mg PO DAILY tab 08/17/20 06/09/21 History levothyroxine 125 mcg tablet 125 mcg PO DAILY #90 tab 02/23/21 06/09/21 Rx amlodipine 5 mg tablet (Norvasc) 5 mg PO DAILY 06/03/21 06/09/21 History fluoride (sodium) 1.1 % dental 1 ea DENTAL UD 06/03/21 06/09/21 History paste (PreviDent 5000 Booster Plus) insulin glargine 100 unit/mL (3 12 unit SQ HS 06/09/21 06/09/21 History mL) subcutaneous pen (Lantus Solostar U-100 Insulin) Past Med/Surg History Medical History 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 Anemia of chronic disease Bacteremia due to Gram-positive bacteria Candidemia Chronic kidney disease Chronic renal disease, stage 3, moderately decreased glomerular filtration rate (GFR) between 30-59 mL/min/1.73 square meter Diabetic nephropathy associated with type 2 diabetes mellitus Epidural abscess History of pneumonia TOLD CAUSED BY CHEMO, MAR 2017 AND RE-OCCURENCE OCTOBER 2017 - NONE SINCE History of sepsis [facility] , DISCHARGED SAT 02/02/19 SEPSIS, UTI/KIDNEY STONE - CONTINUES ABX TX SEPSIS JUN 2017 ABCESS OF SPINE LOWER BACK History of stroke MAR 2018 - [facility]...TX TO [facility] /TESTING SHOWED ENDOCARDITIS CAUSED STROKE RESIDUAL EFFECTS: SPEECH SLOW, MOUTH RIGHT SIDE SLIGHTLY DROOPY WHEN SMILES, WEAKER ON RIGHT SIDE THAN LEFT Hypothyroidism IBS (irritable bowel syndrome) Parotid tumor 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 Vertebral osteomyelitis Surgical History Aortic valve replaced H/o aortic stenosis s/p prosthetic valve replacement in 2012 H/O stem cell transplant [facility], September 2016 History of back surgery History of colonoscopy History of surgery PAROTID X2 History of surgery PEG TUBE AND SINCE REMOVED History of vascular access device INSERTION AND REMOVAL Family History Other Coronary heart disease Family history of diabetes mellitus in father Family history of diabetes mellitus in mother Stroke Thyroid disorder Social History Smoking Status: Former smoker Second Hand Exposure: No; Hx Alcohol Use: No Hx Substance Use: No Preferred Language: Romanian Communication Ability: Effective Primary Products Inspectors Required: No Beliefs That Will Affect Care: None marital status: Current Living Situation: Spouse current occupational status: retired Other Information That Helps Us Care for You: No Feels Safe at Home: Yes Safety Concerns: Feels Safe At This Time Assistive Devices: Glasses Review of Systems Review of Systems: All systems reviewed & are unremarkable except as noted in HPI & below Constitutional: + fatigue; no fever, no chills, no sweats and no anorexia Eyes: no diplopia and no worsening vision Ear, Nose, Mouth, Throat: no nasal congestion, no sore throat and no dysphagia Respiratory: no cough, no dyspnea and no wheezing Cardiovascular: no chest pain, no palpitations and no edema Gastrointestinal: no abdominal pain, no nausea, no vomiting and no diarrhea/loose stools Genitourinary: + flank pain (left - started in the ED); no dysuria or no hematuria Musculoskeletal: + back pain, + neck pain and + myalgia Integumentary: no rash and no yellowing of the skin Neurologic: as per Subjective / HPI Physical Exam Constitutional: Sleeping but arousable, no acute distress. Answering questions appropriately. Eyes: PERRL, conjunctivae normal, anicteric sclerae EOMs - difficulty with tracking to the left but able to complete, slow to respond to commands ENMT: Tongue midline without lacerations Neck: trachea midline Respiratory: no respiratory distress and no labored breathing Auscultation: lungs clear to auscultation bilaterally and + diminished lung sounds (poor inspiratory effort) Cardiovascular: Rate/Rhythm: regular rate and regular rhythm Heart Sounds: + murmur Vessels: dorsalis pedis pulses present and radial pulses present Extremities: no calf tenderness and no edema Gastrointestinal (Abdomen): Inspection/Auscultation: normal bowel sounds; abdomen not distended Percussion/Palpation: abdomen soft; abdomen nontender Musculoskeletal: Head/Neck/Chest: normocephalic, head atraumatic and neck supple Skin: no rashes and no jaundice Neurologic: moves all extremities; no focal motor deficits Psychiatric: A+Ox3, euthymic affect Results & Data Results & Data ([facility]) Vital Signs (Past 12 Hours) Vital Signs Temp Pulse Pulse Resp BP BP Pulse Ox 06/09/21 10:23 36.7 C 64 20 177/67 H 97 06/09/21 09:59 64 20 177/67 H 97 06/09/21 09:57 68 18 157/69 H 96 06/09/21 08:02 66 18 148/66 H 95 06/09/21 07:09 64 20 98 06/09/21 06:21 74 20 145/68 H 92 06/09/21 04:15 37 C 106 H 18 172/84 H 95 Pulse Ox 06/09/21 10:23 06/09/21 09:59 97 06/09/21 09:57 06/09/21 08:02 06/09/21 07:09 06/09/21 06:21 06/09/21 04:15 Laboratory Results Laboratory Results - last 24 hr 06/09/21 06/09/21 06/09/21 04:33 04:33 04:33 WBC 11.82 H RBC 4.43 L Hgb 13.3 L Hct 39.1 L MCV 88.3 MCH 30.0 MCHC 34.0 RDW Std Deviation 48.4 H RDW Coeff of Paul 14.9 H Plt Count 115 L MPV 10.2 Immature Gran % (Auto) 0.8 Neut % (Auto) 73.4 Lymph % (Auto) 16.1 Motley % (Auto) 8.2 Eos % (Auto) 1.3 Baso % (Auto) 0.2 Neut # (Auto) 8.68 H Lymph # (Auto) 1.90 Motley # (Auto) 0.97 H Eos # (Auto) 0.15 Baso # (Auto) 0.02 Immature Gran # (Auto) 0.10 H PT 10.1 INR 1.0 APTT 26.0 PTT Ratio 1.0 Sodium 137 Potassium 3.8 Chloride 105 Carbon Dioxide 24 Anion Gap 8.0 BUN 22 H Creatinine 1.44 H Est Cr Clr Drug Dosing 36.4 Est GFR ( Amer) 55.1 Est GFR (Non-Af Amer) 47.5 BUN/Creatinine Ratio 15.5 Glucose 161 H POC Glucose Lactate Calcium 9.2 Magnesium 2.4 Total Bilirubin 0.5 AST 34 ALT 69 Alkaline Phosphatase 95 Troponin I 0.033 Total Protein 7.1 Albumin 4.0 Globulin 3.1 Albumin/Globulin Ratio 1.3 Urine Color Urine Appearance Urine pH Ur Specific [place] Urine Protein Urine Glucose (UA) Urine Ketones Urine Blood Urine Nitrite Urine Bilirubin Urine Urobilinogen Ur Leukocyte Esterase Urine WBC (Auto) Urine RBC (Auto) U Hyaline Cast (Auto) U Epithel Cells (Auto) Urine Bacteria (Auto) SARS-CoV-2, RNA, NAAT Blood Type Antibody Screen 06/09/21 06/09/21 06/09/21 04:33 04:42 04:45 WBC RBC Hgb Hct MCV MCH MCHC RDW Std Deviation RDW Coeff of Paul Plt Count MPV Immature Gran % (Auto) Neut % (Auto) Lymph % (Auto) Motley % (Auto) Eos % (Auto) Baso % (Auto) Neut # (Auto) Lymph # (Auto) Motley # (Auto) Eos # (Auto) Baso # (Auto) Immature Gran # (Auto) PT INR APTT PTT Ratio Sodium Potassium Chloride Carbon Dioxide Anion Gap BUN Creatinine Est Cr Clr Drug Dosing Est GFR ( Amer) Est GFR (Non-Af Amer) BUN/Creatinine Ratio Glucose POC Glucose Lactate 1.6 Calcium Magnesium Total Bilirubin AST ALT Alkaline Phosphatase Troponin I Total Protein Albumin Globulin Albumin/Globulin Ratio Urine Color Urine Appearance Urine pH Ur Specific [place] Urine Protein Urine Glucose (UA) Urine Ketones Urine Blood Urine Nitrite Urine Bilirubin Urine Urobilinogen Ur Leukocyte Esterase Urine WBC (Auto) Urine RBC (Auto) U Hyaline Cast (Auto) U Epithel Cells (Auto) Urine Bacteria (Auto) SARS-CoV-2, RNA, NAAT NEGATIVE Blood Type O Negative Antibody Screen NEGATIVE 06/09/21 06/09/21 05:40 08:08 WBC RBC Hgb Hct MCV MCH MCHC RDW Std Deviation RDW Coeff of Paul Plt Count MPV Immature Gran % (Auto) Neut % (Auto) Lymph % (Auto) Motley % (Auto) Eos % (Auto) Baso % (Auto) Neut # (Auto) Lymph # (Auto) Motley # (Auto) Eos # (Auto) Baso # (Auto) Immature Gran # (Auto) PT INR APTT PTT Ratio Sodium Potassium Chloride Carbon Dioxide Anion Gap BUN Creatinine Est Cr Clr Drug Dosing Est GFR ( Amer) Est GFR (Non-Af Amer) BUN/Creatinine Ratio Glucose POC Glucose 123 H Lactate Calcium Magnesium Total Bilirubin AST ALT Alkaline Phosphatase Troponin I Total Protein Albumin Globulin Albumin/Globulin Ratio Urine Color Yellow Urine Appearance Clear Urine pH 5.5 Ur Specific [place] 1.036 H Urine Protein 1+ H Urine Glucose (UA) Negative Urine Ketones Trace H Urine Blood 1+ H Urine Nitrite Negative Urine Bilirubin Negative Urine Urobilinogen Negative Ur Leukocyte Esterase Trace H Urine WBC (Auto) 10-30 H Urine RBC (Auto) 0-4 U Hyaline Cast (Auto) 1-5 U Epithel Cells (Auto) >30 H Urine Bacteria (Auto) Negative SARS-CoV-2, RNA, NAAT Blood Type Antibody Screen Diagnostic Findings Chest X-ray 06/09/21 - IMPRESSION: Mild pulmonary edema. Radiodensities in the left upper extremity are new from prior exam, likely superficial. Clinical correlation is recommended. CT Head/CTA Head/Neck 06/09/21 - IMPRESSION: 1. No acute intracranial hemorrhage, evidence of acute territorial infarction, or other acute intracranial disease process. Old infarcts are noted as above. 2. No occlusion, hemodynamically significant stenosis, aneurysm, dissection, or arteriovenous malformation in the major intracranial arteries. 3. No occlusion, hemodynamically significant stenosis, or dissection in the major cervical arteries. CT Abd/Pel 06/09/21 - IMPRESSION: 1. No evidence of hydronephrosis or nephrolithiasis. 2. Marked prostatomegaly with bladder distention. Medications Administered Acetaminophen (Acetaminophen 325 Mg Tab) 650 mg PO Q4H PRN PRN Reason: Pain or Fever Stop: 07/09/21 09:58 Last Admin: 06/09/21 11:02 Dose: 650 mg Documented by: [id number] Discontinued Medications Sodium Chloride (Nss 1000ml) 500 mls @ 999 mls/hr IV .Q31M ONE Stop: 06/09/21 04:49 Last Infusion: 06/09/21 06:44 Dose: 0 mls/hr Documented by: [id number] Admin: 06/09/21 05:22 Dose: 999 mls/hr Documented by: [id number] Levetiracetam 1,000 mg/ Sodium (Chloride) 110 mls @ 440 mls/hr IV NOW STA Stop: 06/09/21 08:01 Last Infusion: 06/09/21 08:20 Dose: 0 mls/hr Documented by: [id number] Admin: 06/09/21 08:04 Dose: 440 mls/hr Documented by: [id number] Ioversol (Optiray 320 125ml) 115 ml IV ONCE ONE Stop: 06/09/21 04:58 Last Admin: 06/09/21 04:57 Dose: 115 ml Documented by: [id number] Morphine Sulfate (Morphine Sulfate 4 Mg/Ml 1 Ml Carp\Vial) 4 mg IV NOW STA Stop: 06/09/21 05:50 Last Admin: 06/09/21 05:59 Dose: 4 mg Documented by: [id number] Code Status & VTE Plan VTE Prophylaxis Plan VTE Prophylaxis will be ordered: Yes Supervising Physician Co-Signing Physician Notes Patient is a 76-year-old male with complex medical history acute myeloid leukemia s/p stem cell transplant, GVHD, BPH with obstruction uropathy, CKD stage III CVA with chronic residual right-sided weakness, hypertension AVR and other medical problems presents with history of episode of seizure-like activity noticed by his which she describes as generalized shakiness lasting for few seconds later followed by state of unresponsiveness lasting for about 20 to 30 minutes. Denies any bowel bladder incontinence, tongue bite. Patient also denies any headache, change in vision, dizziness. Patient had chronic right facial droop which has been unchanged as per . Currently when ED he is alert oriented oriented. Patient denies any chest pain, shortness of breath, fever, chills, recent infection or change in medications. Patient's reports having a similar episode previously. Patient's family also reports that patient had chronic abdominal pain which is unchanged. Please review HPI for complete details of presentation. Blood work suggestive of mild leukocytosis 11.82 K, creatinine 1.4 at baseline. Chest x-ray suggestive of mild pulmonary edema. He was found to have urinary retention while in ED and Osman was placed. On exam patient is thin, frail, chronically ill-appearing, no apparent distress, normocephalic atraumatic, EOMI, diminished breath sounds, clear to auscultation, S1-S2,+ murmur, no pedal edema, abdomen soft, nontender, normal bowel sounds, + mild generalized abdominal tenderness, alert, awake, oriented,+ right facial droop, minimal right upper extremity weakness otherwise no focal deficits. Patient is admitted for management of seizure, urinary retention. CT head, CTA head and neck showed no acute findings. Will obtain MRI to rule out any acute intracranial activity. Seizure, fall, aspiration precautions. Patient received loading dose of Keppra while in ED. Will start on Keppra 500 mg twice daily. Check EEG. Will consult neurology. Continue Flomax, Proscar for urinary retention. Will consult urology as requested by patient's family. I personally reviewed the record. Patient is interviewed and examined at bedside. Patient's care is coordinated with Mervat Arguelles PA-C. Please refer to the documentation above for details of patient's presentation and for discussion of other issues.
[2021-06-09] MEDS ORDERED: LORazepam 1 MG/2 ML VIAL IV PRN (11:26)
[2021-06-09] MEDS ORDERED: CARBOHYDRATES FOR HYPOGLYCEMIA PO PRN (11:27)
[2021-06-09] MEDS ORDERED: GLUCOSE 10 TABS/TUBE PO PRN (11:27)
[2021-06-09] MEDS ORDERED: GLUCOSE 40% GEL 15 GM TUBE PO PRN (11:27)
[2021-06-09] MEDS ORDERED: DEXTROSE 50% 50 ML SYRINGE IV PRN (11:27)
[2021-06-09] MEDS ORDERED: GLUCAGON FOR INJ 1 MG VIAL SQ PRN (11:27)
[2021-06-09] MEDS: INSULIN ASPART PER UNIT SC SCH ×3 (11:44→20:19)
[2021-06-09] MEDS: TAMSULOSIN HCL 0.4 MG CAP PO SCH (12:08)
[2021-06-09] MEDS: LEVOTHYROXINE SODIUM 125 MCG TABLET PO SCH (12:08)
[2021-06-09] MEDS: amLODIPine BESYLATE 5 MG TAB PO SCH (12:08)
[2021-06-09] MEDS: FINASTERIDE 5 MG TAB PO SCH (12:08)
--- NOTE | 2021-06-09 12:10 | Neurology Consultation ---
Date of Consultation June 09, 2021 Assessment & Plan (1) Seizure: 1. EEG - no evidence of seizure focus 2. MRI brain with and without- no new stroke or seizure focus 3. CTA head neck-no occlusion or significant narrowing 4. TTE- if not already ordered. 5. optimze HTN HLD, DM LDL <70 6. would add aspirin 81 mg if no contra indication 7. start Keppra 500 mg q 12 hours 8. will arrange for an out patient 72 hour EEG to further evaluate once medially stable ok from neurology stand point to discharge. (2) History of CVA (cerebrovascular accident): as above Supervising Physician Co-Signing Physician Notes I have seen and discussed above patient with Dr Seth Figueroa, neurology I have examined and interviewed Mr Montes today in the emergency room reviewed his EEG MRI and other diagnostics imaging studies and labs. I also discussed his case with Lauren Schofield PA-C and agree completely with her assessment and plan The history suggests a nocturnal seizure possibly of primary generalized type and imaging studies show only subcortical white matter changes due to the old CVA involving left hemisphere and most common and small vessel disease. No cortical lesions are noted but this does not exclude the possibility of a focal emerging seizure secondary generalization and a normal short duration waking EEG does not exclude the diagnosis either Exam shows mixed dysarthria with some word finding issues and hesitant speech consistent with his daughter demonstrates no cortical stroke and also some very subtle reduced facility rapid repetitive motor motions involving the right arm is otherwise unremarkable I think we are obligated in light of this man's age, underlying risk factors, underlying cerebrovascular disease and in light of the history empirically start anticonvulsants and maintain Keppra at 500 mg twice a day with plans for outpatient visit, possibly an ambulatory EEG, consider determination of Keppra levels We will check back with him tomorrow but if stable and tolerating the medications and if he has no pressing medical issues prior to be discharged back to home and will arrange follow-up in our office in about 3 to 4 weeks Seth Figueroa MD History of Present Illness Reason for Consultation: seizure like activity, vs stroke Requesting Physician: Michele Palmer MD Attending Physician: Michele Ford MD History of Present Illness Oz is a 76 year old male with PMH-DM requiring insulin, AML s/p stem cell transplant, prior GVHD, BPH w/ urinary obstruction, hypothyroidism, CKD3, chronic right-sided CHF, 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 ED 06/09/21 via ambulance after an episode of seizure-like activity at home. He has a history of mild cognitive impairment since CVA - is historian. Around 2:30 am this am his woke up to the bed shaking from the patient having what she describes as total body shaking. It was dark so she had difficulty assessing exactly which portions were affected. This lasted several seconds and then and he then went unresponsive but was still breathing. EMS was called and pt was reportedly still unresponsive on their arrival but gradually regained awareness in the ambulance. His thinks this decreased responsiveness lasted about 20-30 minutes. No incontinence, no tongue-biting. He had a similar episode in 2018 that was attributed to sepsis after an EEG was negative. He does not remember anything about the event. He does remember the ride in the ambulance. His only complaint is left arm pain and shoulder pain. Allergies Allergy/AdvReac Type Severity Reaction Status Date / Time duloxetine [From Cymbalta] AdvReac Mild Hypertensio Unverified 06/09/21 10:05 n Influenza Virus Vaccines AdvReac Mild Nausea Verified 06/09/21 10:05 Home Medications Medication Instructions Recorded Confirmed Type acetaminophen 500 mg tablet 500 mg PO QID PRN 07/10/18 06/09/21 History (Tylenol Extra Strength) lactobacillus combination no.4 3 3,000 mmu cells PO QAM 01/26/19 06/09/21 History billion cell capsule (Probiotic) potassium chloride 20 mEq 20 meq PO DAILY PRN 01/26/19 06/09/21 History tablet,extended release tamsulosin 0.4 mg capsule 0.4 mg PO QAM 01/26/19 06/09/21 History lysine 500 mg tablet 500 mg PO DAILY 11/25/19 06/09/21 History amitriptyline 25 mg tablet 25 mg PO HS tab 02/28/20 06/09/21 History dicyclomine 10 mg capsule 10 mg PO AC PRN 02/28/20 06/09/21 History cyanocobalamin (vitamin B-12) 1,000 mcg PO DAILY 07/29/20 06/09/21 History 1,000 mcg tablet turmeric root extract 500 mg 500 mg PO DAILY 07/29/20 06/09/21 History capsule finasteride 5 mg tablet 5 mg PO QAM 08/17/20 06/09/21 History metoprolol succinate 25 mg 12.5 mg PO QPM tab 08/17/20 06/09/21 History tablet,extended release 24 hr (Toprol XL) simethicone 125 mg capsule (Gas-X 80 mg PO ACHS PRN 08/17/20 06/09/21 History Extra Strength) zinc gluconate 30 mg tablet 50 mg PO DAILY tab 08/17/20 06/09/21 History levothyroxine 125 mcg tablet 125 mcg PO DAILY #90 tab 02/23/21 06/09/21 Rx amlodipine 5 mg tablet (Norvasc) 5 mg PO DAILY 06/03/21 06/09/21 History fluoride (sodium) 1.1 % dental 1 ea DENTAL UD 06/03/21 06/09/21 History paste (PreviDent 5000 Booster Plus) insulin glargine 100 unit/mL (3 12 unit SQ HS 06/09/21 06/09/21 History mL) subcutaneous pen (Lantus Solostar U-100 Insulin) Patient History Medical History 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 , DISCHARGED SAT 02/02/19 SEPSIS, UTI/KIDNEY STONE - CONTINUES ABX TX SEPSIS JUN 2017 ABCESS OF SPINE LOWER BACK History of stroke MAR 2018 - 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 Vertebral osteomyelitis Surgical History Aortic valve replaced H/o aortic stenosis s/p prosthetic valve replacement in 2012 H/O stem cell transplant [facility], September 2016 History of back surgery History of colonoscopy History of surgery PAROTID X2 History of surgery PEG TUBE AND SINCE REMOVED History of vascular access device INSERTION AND REMOVAL Family History Other Coronary heart disease Family history of diabetes mellitus in father Family history of diabetes mellitus in mother Stroke Thyroid disorder Social History Smoking Status: Former smoker Second Hand Exposure: No; Hx Alcohol Use: No Hx Substance Use: No Preferred Language: [place] Islander Communication Ability: Effective Salvage Diver Required: No Beliefs That Will Affect Care: None marital status: Current Living Situation: Spouse current occupational status: retired Other Information That Helps Us Care for You: No Feels Safe at Home: Yes Safety Concerns: Feels Safe At This Time Assistive Devices: Glasses Review of Systems Review of Systems: All systems reviewed & are unremarkable except as noted in HPI & below Physical Exam Physical Exam: Physical Exam: Constitutional: appearance nourished, thin ill appearing Ears, Nose, Mouth and Throat: mucous membranes moist, no injection and skin normal, eyes normal Cardiovascular: normal S-1 and S-2 and regular rate and rhythm, loud rumbling murmer Respiratory: clear to auscultation (CTA) and no rales, ronchi or wheeze Musculoskeletal: no peripheral edema and good distal pulses Skin: no stigmata of neurocutaneous disease noted and normal and intact Eyes: extraocular muscles intact (EOMI) and pupils equal, round and reactive to light (PERRL) NEUROLOGIC EXAMINATION: Mental status: Alert and interactive Oriented to full date and location Oriented to person Speech slurred speech dysarthria Cranial Nerves flattening of right nasolabial fold Sensory: no sensory deficits light and cool touch Coordination: finger to nose Gait/Stance: Posture sitting up in bed. Gait walked with assistance to bed from wheelchair Motor: Negative for pronator drift of out stretched arms with eyes closed. Strength: hand test skein winder biceps triceps 5/5 bilaterally right hand coordination slow Results & Data ([facility]) Vital Signs (Past 12 Hours) Vital Signs Temp Pulse Pulse Resp BP BP Pulse Ox 06/09/21 10:23 36.7 C 64 20 177/67 H 97 06/09/21 09:59 64 20 177/67 H 97 06/09/21 09:57 68 18 157/69 H 96 06/09/21 08:02 66 18 148/66 H 95 06/09/21 07:09 64 20 98 06/09/21 06:21 74 20 145/68 H 92 06/09/21 04:15 37 C 106 H 18 172/84 H 95 Pulse Ox 06/09/21 10:23 06/09/21 09:59 97 06/09/21 09:57 06/09/21 08:02 06/09/21 07:09 06/09/21 06:21 06/09/21 04:15 Laboratory Results Abnormal lab results 06/09/21 06/09/21 06/09/21 Range/Units 04:33 04:33 05:40 WBC 11.82 H (4.8-10.8) K/uL RBC 4.43 L (4.7-6.1) M/uL Hgb 13.3 L (14.0-18.0) g/dL Hct 39.1 L (42-52) % RDW Std Deviation 48.4 H (36.4-46.3) fL RDW Coeff of Paul 14.9 H (11.5-14.5) % Plt Count 115 L (130-400) K/uL Neut # (Auto) 8.68 H (1.4-6.5) K/uL Dubois # (Auto) 0.97 H (0.11-0.59) K/uL Immature Gran # (Auto) 0.10 H (0.00-0.02) K/uL BUN 22 H (7-18) mg/dl Creatinine 1.44 H (0.6-1.4) mg/dl Glucose 161 H (70-99) mg/dl POC Glucose (70-99) mg/dl Ur Specific Chambers 1.036 H (1.000-1.030) Urine Protein 1+ H (Negative) Urine Ketones Trace H (Negative) Urine Blood 1+ H (Negative) Ur Leukocyte Esterase Trace H (Negative) Urine WBC (Auto) 10-30 H (0-5) /hpf U Epithel Cells (Auto) >30 H (0-5) /lpf 06/09/21 Range/Units 08:08 WBC (4.8-10.8) K/uL RBC (4.7-6.1) M/uL Hgb (14.0-18.0) g/dL Hct (42-52) % RDW Std Deviation (36.4-46.3) fL RDW Coeff of Paul (11.5-14.5) % Plt Count (130-400) K/uL Neut # (Auto) (1.4-6.5) K/uL Dubois # (Auto) (0.11-0.59) K/uL Immature Gran # (Auto) (0.00-0.02) K/uL BUN (7-18) mg/dl Creatinine (0.6-1.4) mg/dl Glucose (70-99) mg/dl POC Glucose 123 H (70-99) mg/dl Ur Specific Chambers (1.000-1.030) Urine Protein (Negative) Urine Ketones (Negative) Urine Blood (Negative) Ur Leukocyte Esterase (Negative) Urine WBC (Auto) (0-5) /hpf U Epithel Cells (Auto) (0-5) /lpf Diagnostic Findings CT head and CTA head/neck-No acute intracranial hemorrhage, evidence of acute territorial infarction, or other acute intracranial disease process. Old infarcts are noted as above. . No occlusion, hemodynamically significant stenosis, aneurysm, dissection, or arteriovenous malformation in the major intracranial arteries. No occlusion, hemodynamically significant stenosis, or dissection in the major cervical arteries. CXR-Median sternotomy wires are stable. The cardiomediastinal silhouette is normal. Prominence and cephalization of the vasculature is seen. No evidence of pleural effusion or pneumothorax. Multiple radiodensities are seen in the left upper extremity. EEG is normal and reveals no evidence for potential epileptogenic activity focal generalized encephalopathy but does not exclude the clinical diagnosis of seizure disorder MRI brain-Chronic/senescent changes as above with no acute intracranial abnormality identified. A multicystic lesion largely replacing the right parotid gland as not appreciably changed as compared to a 2519.
--- NOTE | 2021-06-09 12:53 | Electrocardiogram Report ---
Test Reason : Blood Pressure : / mmHG Vent. Rate : 090 BPM Atrial Rate : 090 BPM P-R Int : 136 ms QRS Dur : 084 ms QT Int : 382 ms P-R-T Axes : 054 -44 070 degrees QTc Int : 467 ms Normal sinus rhythm Left axis deviation Abnormal ECG When compared with ECG of 03-JUN-2021 01:33, No significant change was found Confirmed by Jose Cnon ([id number]) on 06/09/2021 12:53:09 PM Referred By: REFERRED SELF Confirmed By:Jose Conn
--- NOTE | 2021-06-09 13:04 | Electroencephalogram ---
EEG Procedure Note Date of Service June 09, 2021 Start / End Times Start Time: 1144 End Time: 1204 Referring Physician Seth Figueroa MD History seizure-like activity Home Medication List Medication Instructions Recorded Confirmed Type acetaminophen 500 mg tablet 500 mg PO QID PRN 07/10/18 06/09/21 History (Tylenol Extra Strength) lactobacillus combination no.4 3 3,000 mmu cells PO QAM 01/26/19 06/09/21 History billion cell capsule (Probiotic) potassium chloride 20 mEq 20 meq PO DAILY PRN 01/26/19 06/09/21 History tablet,extended release tamsulosin 0.4 mg capsule 0.4 mg PO QAM 01/26/19 06/09/21 History lysine 500 mg tablet 500 mg PO DAILY 11/25/19 06/09/21 History amitriptyline 25 mg tablet 25 mg PO HS tab 02/28/20 06/09/21 History dicyclomine 10 mg capsule 10 mg PO AC PRN 02/28/20 06/09/21 History cyanocobalamin (vitamin B-12) 1,000 mcg PO DAILY 07/29/20 06/09/21 History 1,000 mcg tablet turmeric root extract 500 mg 500 mg PO DAILY 07/29/20 06/09/21 History capsule finasteride 5 mg tablet 5 mg PO QAM 08/17/20 06/09/21 History metoprolol succinate 25 mg 12.5 mg PO QPM tab 08/17/20 06/09/21 History tablet,extended release 24 hr (Toprol XL) simethicone 125 mg capsule (Gas-X 80 mg PO ACHS PRN 08/17/20 06/09/21 History Extra Strength) zinc gluconate 30 mg tablet 50 mg PO DAILY tab 08/17/20 06/09/21 History levothyroxine 125 mcg tablet 125 mcg PO DAILY #90 tab 02/23/21 06/09/21 Rx amlodipine 5 mg tablet (Norvasc) 5 mg PO DAILY 06/03/21 06/09/21 History fluoride (sodium) 1.1 % dental 1 ea DENTAL UD 06/03/21 06/09/21 History paste (PreviDent 5000 Booster Plus) insulin glargine 100 unit/mL (3 12 unit SQ HS 06/09/21 06/09/21 History mL) subcutaneous pen (Lantus Solostar U-100 Insulin) Inpatient Medication List Acetaminophen (Acetaminophen 325 Mg Tab) 650 mg PO Q4H PRN PRN Reason: Pain or Fever Stop: 07/09/21 09:58 Last Admin: 06/09/21 11:02 Dose: 650 mg Documented by: [id number] Amlodipine Besylate (Amlodipine Besylate 5 Mg Tab) 5 mg PO DAILY [facility] Stop: 07/09/21 11:59 Last Admin: 06/09/21 12:08 Dose: 5 mg Documented by: [id number] Finasteride (Finasteride 5 Mg Tab) [facility] Stop: 07/09/21 11:59 Last Admin: 06/09/21 12:08 Dose: 5 mg Documented by: [id number] Insulin Aspart (Insulin Aspart Per Unit) 0 units [facility] Stop: 07/09/21 11:29 Last Admin: 06/09/21 11:44 Dose: Not Given Documented by: [id number] Levothyroxine Sodium (Levothyroxine Sodium 125 Mcg Tablet) [facility] Stop: 07/09/21 11:59 Last Admin: 06/09/21 12:08 Dose: 125 mcg Documented by: [id number] Tamsulosin HCl (Tamsulosin Hcl 0.4 Mg Cap) 0.[address] [facility] Stop: 07/09/21 11:59 Last Admin: 06/09/21 12:08 Dose: 0.4 mg Documented by: [id number] Discontinued Medications Sodium Chloride (Nss 1000ml) 500 mls @ 999 mls/hr IV .Q31M ONE Stop: 06/09/21 04:49 Last Infusion: 06/09/21 06:44 Dose: 0 mls/hr Documented by: [id number] Admin: 06/09/21 05:22 Dose: 999 mls/hr Documented by: [id number] Levetiracetam 1,000 mg/ Sodium (Chloride) 110 mls @ 440 mls/hr IV NOW STA Stop: 06/09/21 08:01 Last Infusion: 06/09/21 08:20 Dose: 0 mls/hr Documented by: [id number] Admin: 06/09/21 08:04 Dose: 440 mls/hr Documented by: [id number] Ioversol (Optiray 320 125ml) 115 ml IV ONCE ONE Stop: 06/09/21 04:58 Last Admin: 06/09/21 04:57 Dose: 115 ml Documented by: [id number] Morphine Sulfate (Morphine Sulfate 4 Mg/Ml 1 Ml Carp\Vial) 4 mg IV NOW STA Stop: 06/09/21 05:50 Last Admin: 06/09/21 05:59 Dose: 4 mg Documented by: [id number] Description This is a 21 electrode EEG with a single channel dedicated to limited EKG. The electrodes were placed in accordance with the International 10-20 system. This EEG performed as a bedside tracing is of good technical quality with few or no muscle movement artifacts. Photic stimulation is performed. Drowsiness light sleep not recorded. Under these conditions there is evidence for normal-appearing background rhythm in the alpha range of up to 10 Hz maximum equal to in 30 V maximal amplitude. This is maximum posterior head regions bilaterally symmetrical. Modest voltage mid frequency theta activity is seen centrally and symmetrically. Beta activity seen bifrontally. Photic stimulation looks minimal driving response. No photo myogenic or photoparoxysmal components are noted. No potentially epileptogenic activity seen Interpretation Is a normal EEG during wakefulness with no evidence for focal generalized encephalopathy no evidence for potentially epileptogenic activity Clinical Correlation This EEG is normal and reveals no evidence for potential epileptogenic activity focal generalized encephalopathy but does not exclude the clinical diagnosis of seizure disorder Seth Figueroa MD
--- NOTE | 2021-06-09 14:16 | Urology Consultation ---
Date of Consultation June 09, 2021 Assessment & Plan (1) CKD (chronic kidney disease): His creatinine is fairly close to what it has been over the past year. I have low suspicion for an obstructive FISH at this point. (2) Urinary retention: I suspect his urinary retention is related to his enlarged prostate. He is on maximal medication therapy for the prostate at this point, and should continue tamsulosin and finasteride. Retention is currently managed with a Osman catheter, which is draining well. I would recommend keeping the catheter for approximately a week prior to performing a voiding trial to allow bladder rest -this voiding trial can be performed as an outpatient if he is ready for discharge. I reviewed surgical options for BPH with the patient and his family in the emergency department, including TURP and other procedures such as Holep. For prostate of his size, I warned that a TURP might not remove enough tissue to get him out of retention. Furthermore, I advised that we would not want to go forward with an elective surgery until we had a clear explanation for his recent seizure-like activity. (3) BPH loc w urin obs/LUTS: Continue tamsulosin and finasteride Maintain Osman catheter for 1 week Follow-up urine culture, antibiotics as indicated We will not plan for surgery while he is currently admitted, but may try to arrange this sooner rather than later once seizure-like activity has resolved. History of Present Illness Reason for Consultation: urinary retention Attending Physician: Michele Ford MD History of Present Illness This is a 76-year-old male with history of urinary retention. He has been previously seen in the urology office by Dr. Adams. He was last seen on 05/07/2021, at which point he was stable on finasteride and tamsulosin, and there was discussion about performing a TURP. At that point, he was emptying his bladder without issues and did not require catheter. He presented to the hospital on 06/09/2021 after having an episode of seizure-like activity. An EEG was negative, and this is currently being attributed to sepsis. In the emergency department, his bladder scan showed significant urinary retention and a Osman catheter was placed with minimal difficulty, with return of 800 mL of clear urine. Urology was consulted for further evaluation and discussion of surgery. He reports that prior to this episode, he was voiding reasonably well. At the time the catheter was placed, he could not sense that his bladder was full. He denies fevers or chills, reports mild dysuria recently. He denies straining to void. He reports a vague abdominal pain, which is difficult to localize and sometimes stretches up into his shoulders. This does not seem to have improved with catheter placement. He reports having a TURP with Dr. Serna in February 2019. This helped him somewhat with his urinary symptoms. I reviewed his labs from the emergency department CBC (06/09/2021): WBC 11.82, hemoglobin 13.3, platelets 128 BMP (06/09/2021): Sodium 137, potassium 3.8, chloride 105. Creatinine 1.44. Glucose 161 Urinalysis (06/09/2021): 1+ protein, 1+ blood, negative nitrites, trace leukocyte esterase. Urine culture is pending. A CT scan was performed on 06/09/2021 which I independently reviewed. He has 2 kidneys with mild hydronephrosis bilaterally, which tracks down to the level of the bladder. The bladder is full, with no abnormal appearing contours. He has marked prostatic enlargement, I calculate his prostate to be approximately 140 cc. There does not appear to be any focal obstruction or nephrolithiasis, but this evaluation is limited due to excretion of contrast from prior CT angiograms. Radiology read in chart: IMPRESSION: 1. No evidence of hydronephrosis or nephrolithiasis. 2. Marked prostatomegaly with bladder distention. Allergies Allergy/AdvReac Type Severity Reaction Status Date / Time duloxetine [From Cymbalta] AdvReac Mild Hypertensio Unverified 06/09/21 10:05 n Influenza Virus Vaccines AdvReac Mild Nausea Verified 06/09/21 10:05 Home Medications Medication Instructions Recorded Confirmed Type acetaminophen 500 mg tablet 500 mg PO QID PRN 07/10/18 06/09/21 History (Tylenol Extra Strength) lactobacillus combination no.4 3 3,000 mmu cells PO QAM 01/26/19 06/09/21 History billion cell capsule (Probiotic) potassium chloride 20 mEq 20 meq PO DAILY PRN 01/26/19 06/09/21 History tablet,extended release tamsulosin 0.4 mg capsule 0.4 mg PO QAM 01/26/19 06/09/21 History lysine 500 mg tablet 500 mg PO DAILY 11/25/19 06/09/21 History amitriptyline 25 mg tablet 25 mg PO HS tab 02/28/20 06/09/21 History dicyclomine 10 mg capsule 10 mg PO AC PRN 02/28/20 06/09/21 History cyanocobalamin (vitamin B-12) 1,000 mcg PO DAILY 07/29/20 06/09/21 History 1,000 mcg tablet turmeric root extract 500 mg 500 mg PO DAILY 07/29/20 06/09/21 History capsule finasteride 5 mg tablet 5 mg PO QAM 08/17/20 06/09/21 History metoprolol succinate 25 mg 12.5 mg PO QPM tab 08/17/20 06/09/21 History tablet,extended release 24 hr (Toprol XL) simethicone 125 mg capsule (Gas-X 80 mg PO ACHS PRN 08/17/20 06/09/21 History Extra Strength) zinc gluconate 30 mg tablet 50 mg PO DAILY tab 08/17/20 06/09/21 History levothyroxine 125 mcg tablet 125 mcg PO DAILY #90 tab 02/23/21 06/09/21 Rx amlodipine 5 mg tablet (Norvasc) 5 mg PO DAILY 06/03/21 06/09/21 History fluoride (sodium) 1.1 % dental 1 ea DENTAL UD 06/03/21 06/09/21 History paste (PreviDent 5000 Booster Plus) insulin glargine 100 unit/mL (3 12 unit SQ HS 06/09/21 06/09/21 History mL) subcutaneous pen (Lantus Solostar U-100 Insulin) Patient History Medical History 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 Anemia of chronic disease Bacteremia due to Gram-positive bacteria Candidemia Chronic kidney disease Chronic renal disease, stage 3, moderately decreased glomerular filtration rate (GFR) between 30-59 mL/min/1.73 square meter Diabetic nephropathy associated with type 2 diabetes mellitus Epidural abscess History of pneumonia TOLD CAUSED BY CHEMO, MAR 2017 AND RE-OCCURENCE OCTOBER 2017 - NONE SINCE History of sepsis [facility] , DISCHARGED SAT 02/02/19 SEPSIS, UTI/KIDNEY STONE - CONTINUES ABX TX SEPSIS JUN 2017 ABCESS OF SPINE LOWER BACK History of stroke MAR 2018 - [facility]...TX TO [place] /TESTING SHOWED ENDOCARDITIS CAUSED STROKE RESIDUAL EFFECTS: SPEECH SLOW, MOUTH RIGHT SIDE SLIGHTLY DROOPY WHEN SMILES, WEAKER ON RIGHT SIDE THAN LEFT Hypothyroidism IBS (irritable bowel syndrome) Parotid tumor 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, September 2016 History of back surgery History of colonoscopy History of surgery PAROTID X2 History of surgery PEG TUBE AND SINCE REMOVED History of vascular access device INSERTION AND REMOVAL Family History Other Coronary heart disease Family history of diabetes mellitus in father Family history of diabetes mellitus in mother Stroke Thyroid disorder Social History Smoking Status: Former smoker Second Hand Exposure: No; Hx Alcohol Use: No Hx Substance Use: No Preferred Language: Kazakh Communication Ability: Effective Meat Soaker Required: No Beliefs That Will Affect Care: None marital status: Current Living Situation: Spouse current occupational status: retired Other Information That Helps Us Care for You: No Feels Safe at Home: Yes Safety Concerns: Feels Safe At This Time Assistive Devices: Glasses Review of Systems Constitutional: Reports fatigue Eyes: no worsening vision Ear, Nose, Mouth, Throat: no tinnitus Respiratory: no cough and no dyspnea Cardiovascular: no chest pain and no palpitations Gastrointestinal: no nausea, no vomiting, no constipation and no diarrhea/lo ose stools Genitourinary: + as per Subjective / HPI Musculoskeletal: no joint pain and no myalgia Integumentary: no rash and no lesions Neurologic: no localized weakness, no numbness and no paresthesia Endocrine: no fatigue Hematologic / Lymphatic: no easy bleeding and no easy bruising Physical Exam Constitutional: well developed and well nourished; no acute distress Eyes: + anicteric sclerae; pupils not irregular Respiratory: normal respiratory effort; no respiratory distress, does not use accessory muscles and no cough Cardiovascular: well perfused Gastrointestinal (Abdomen): Inspection/Auscultation: abdomen normal to inspection; abdomen not distended Musculoskeletal: Extremities: extremities normal to inspection Skin: normal turgor; no rashes and no lesions Neurologic: moves all extremities and awake Psychiatric: Orientation: alert and oriented x 3 Genitourinary: Osman catheter in place draining clear yellow urine. Results & Data ([facility]) Vital Signs (Past 12 Hours) Vital Signs Temp Pulse Pulse Resp BP BP Pulse Ox 06/09/21 10:23 36.7 C 64 20 177/67 H 97 06/09/21 09:59 64 20 177/67 H 97 06/09/21 09:57 68 18 157/69 H 96 06/09/21 08:02 66 18 148/66 H 95 06/09/21 07:09 64 20 98 06/09/21 06:21 74 20 145/68 H 92 06/09/21 04:15 37 C 106 H 18 172/84 H 95 Pulse Ox 06/09/21 10:23 06/09/21 09:59 97 06/09/21 09:57 06/09/21 08:02 06/09/21 07:09 06/09/21 06:21 06/09/21 04:15 PG Care Time/CCT Total # of Minutes Spent Total Time Spent with Patient: Total time spent is greater than 50% in coordination of care (as documented) at patient's floor/unit and/or counseling patient: Coding Level of Care Code 21081 Initial Inpt Care Lvl 3 Diagnoses CKD (chronic kidney disease) N18.9 Chronic kidney disease stage: unspecified stage Urinary retention R33.9 BPH loc w urin obs/LUTS N40.1 (1) CKD (chronic kidney disease) Chronic kidney disease stage: unspecified stage Qualified Code(s): N18.9 - Chronic kidney disease, unspecified
[2021-06-09] MEDS: levETIRAcetam 500 MG in 0.9 % SODIUM CHLORIDE 100 ML IV SCH (14:30)
--- NOTE | 2021-06-09 15:32 | Communication Note ---
Date of Service: June 09, 2021 Note created in error Seth Figueroa MD
[2021-06-09] MEDS ORDERED: GADOBUTROL 65ML VIAL IV ONE (15:45)
--- NOTE | 2021-06-09 16:06 | Magnetic Resonance Report ---
MRI OF THE BRAIN COMBO CLINICAL HISTORY: Seizure. COMPARISON STUDY: CT of the brain dated 06/09/2021. MRI of the brain dated 01/27/2019. TECHNIQUE: MRI of the brain was performed utilizing various T1 and T2-weighted sequences in the axial , sagittal, and coronal planes. Contrast-enhanced sequences were acquired following the administratio n of 5.5 cc of Gadavist. The examination is performed using the seizure protocol. FINDINGS: Brain parenchyma: There is age-related involutional change noting moderate to advanced subcortical an d periventricular microangiopathic disease. A focus of high left frontal encephalomalacia is consiste nt with a remote infarct. There is no hemorrhage or mass effect. There is no restricted diffusion to suggest acute ischemia. No enhancing mass lesion is identified on the postcontrast images. Ratliff-white matter differentiation is preserved. No extra-axial fluid collection is seen. Small chronic lacunar infarcts are noted in both cerebellar hemispheres in the left aspect of the neptali. The cerebellar tons ils are normal in configuration. The hippocampi are normal and symmetric. Ventricles, sulci, and cisterns: Prominent secondary to involutional change. Pituitary and sella: Unremarkable. Intracranial vasculature: Normal flow voids are maintained at the skull base. Orbits: The bony orbits are grossly intact. Orbital contents are normal in appearance. Sinuses and mastoids: There is moderate mucosal thickening within the ethmoid sinuses. Trace mucosal thickening is noted in the maxillary antra. There are large right and small left mastoid effusions. Calvarium: Unremarkable. Cervical cord: Partially visualized cervical spinal cord is normal in morphology and signal intensity . Soft tissues: A multicystic lesion largely replacing the right parotid gland is similar in appearance to 2019 examination. IMPRESSION: 1. Chronic/senescent changes as above with no acute intracranial abnormality identified. 2. A multicystic lesion largely replacing the right parotid gland as not appreciably changed as helene red to a 2519. ACT 112: Negative or not required by law. Electronically signed by: Louis Draper M.D. 06/09/2021 4:04 PM
[2021-06-09] MEDS: METOPROLOL SUCC 25MG EXT REL TAB PO SCH (19:53)
[2021-06-09] MEDS: HEPARIN SOD 5,000 UNIT/0.5 ML VIAL SQ SCH (19:54)
[2021-06-09] MEDS: INSULIN GLARGINE SOLOSTAR 100 UNITS/ML 3 ML PEN SC SCH (19:54)
[2021-06-09] MEDS: AMITRIPTYLINE HCL 25 MG TAB PO SCH (19:54)
[2021-06-10] MEDS: levETIRAcetam 500 MG in 0.9 % SODIUM CHLORIDE 100 ML IV SCH ×2 (01:41→15:33)
[2021-06-10] MEDS: LEVOTHYROXINE SODIUM 125 MCG TABLET PO SCH (06:00)
[2021-06-10 07:56] LABS: Basophils # (auto) 0.02 K/uL (0-0.2); Basophils % (auto) 0.2 %; Eosinophils # (auto) 0.26 K/uL (0-0.5); Eosinophils % (auto) 2.7 %; Hemoglobin 11.6 g/dL (14.0-18.0); Immature Granulocytes # (auto) 0.03 K/uL (0.00-0.02); Immature Granulocytes % (auto) 0.3 %; Lymphocytes # (auto) 2.22 K/uL (1.2-3.4); Lymphocytes % (auto) 22.8 %; Mean Corpuscular Hemoglobin 29.5 pg (25-34); Mean Corpuscular Hgb Conc 33.1 g/dL (32-36); Mean Corpuscular Volume 89.1 fL (80-100); Mean Platelet Volume 10.2 fL (7.4-10.4); Monocytes # (auto) 0.84 K/uL (0.11-0.59); Monocytes % (auto) 8.6 %; Neutrophils # (auto) 6.36 K/uL (1.4-6.5); Neutrophils % (auto) 65.4 %; Platelet Count 107 K/uL (130-400); RDW Coefficient of Variation 15.4 % (11.5-14.5); RDW Standard Deviation 50.2 fL (36.4-46.3); Red Blood Count 3.93 M/uL (4.7-6.1); White Blood Count 9.73 K/uL (4.8-10.8)
[2021-06-10 08:23] LABS: BUN Creatinine Ratio 17.8 (10-20); Calcium 8.4 mg/dl (8.5-10.1); Est GFR (African American) 61.7 ml/min; Est GFR (Non-African American) 53.3 ml/min; Potassium 3.7 mmol/L (3.5-5.1)
[2021-06-10] MEDS: INSULIN ASPART PER UNIT SC SCH ×4 (08:52→21:03)
[2021-06-10 09:40] LABS: Estimated Average Glucose 140 mg/dl; Hemoglobin A1C 6.5 % (4.5-5.6)
--- NOTE | 2021-06-10 10:55 | Urology Progress Note ---
Date of Service June 10, 2021 Assessment & Plan (1) Urinary retention: (2) BPH loc w urin obs/LUTS: Plan: 76yo M admitted with seizure like activity and urinary retention - Pt with urinary retention related to enlarged prostate. - He is afebrile. - Labs reviewed- Wbc 9.73, Creatinine improved to 1.31. - Urine culture final with more than three types of organisms present, all high counts. - Osman catheter intact and draining well. - No acute intervention warranted at this time. - Recommend continuing the catheter for at least 1 week to allow bladder rest. - Will arrange outpatient follow-up with our service for further discussion of surgical options for BPH once we have a clear explanation for his recent seizure-like activity. Voiding trial can be performed as outpatient if the catheter is not removed before then. - Recommend continue tamsulosin and finasteride. - Continue supportive care and management per primary team. - will sign-off, please contact us with any further questions or concerns. Admission and Anticipated Discharge Date Admission Date: June 09, 2021 Supervising Physician Co-Signing Physician Notes Discussed patient with LISETTE. Agree with plan. Subjective Pt examined at bedside this AM. Asleep on arrival, awakened to name. No acute distress. No fevers. He denied pain/discomfort at time of exam. Osman intact, draining clear yellow, slighly pink tinged urine. No clots noted in tubing. Denied nausea or vomiting. Offered no additional complaints. Review of Systems Constitutional: as per Subjective / HPI Genitourinary: + as per Subjective / HPI Physical Exam Constitutional: well developed and well nourished; no acute distress Respiratory: normal respiratory effort; no respiratory distress and does not use accessory muscles Gastrointestinal (Abdomen): Inspection/Auscultation: abdomen normal to inspection; abdomen not distended Musculoskeletal: Extremities: extremities normal to inspection Skin: no rashes and no lesions Neurologic: moves all extremities and awake Psychiatric: Orientation: alert and oriented x 3 Genitourinary: Osman catheter in place Results & Data ([facility]) Vital Signs (Past 12 Hours) Vital Signs Temp Pulse Pulse Resp BP Pulse Ox 06/10/21 08:19 36.3 C L 69 20 154/71 H 94 06/10/21 07:20 68 06/10/21 02:00 36.6 C 71 18 160/67 H 92 PG Care Time/CCT Total # of Minutes Spent Total Time Spent with Patient: Total time spent is greater than 50% in coordination of care (as documented) at patient's floor/unit and/or counseling patient: Coding Level of Care Code 87349 Subseq Hosp Care Lvl 2 Diagnoses Urinary retention R33.9 BPH loc w urin obs/LUTS N40.1
[2021-06-10] MEDS: HEPARIN SOD 5,000 UNIT/0.5 ML VIAL SQ SCH ×2 (11:55→21:07)
[2021-06-10] MEDS: amLODIPine BESYLATE 5 MG TAB PO SCH (11:55)
[2021-06-10] MEDS: FINASTERIDE 5 MG TAB PO SCH (11:55)
[2021-06-10] MEDS: CYANOCOBALAMIN 500 MCG TABLET (VITAMIN B-12) PO SCH (11:55)
[2021-06-10] MEDS: TAMSULOSIN HCL 0.4 MG CAP PO SCH (11:55)
--- NOTE | 2021-06-10 15:58 | Hospitalist Progress Note ---
Date of Service June 10, 2021 Assessment & Plan (1) Seizure: Plan: Similar episode in 2019 accomanying sepsis, which is not present. Possible seizure. Neurology consulted and working up. Cont Keppra. Mental status has improved. concerned about amitriptyline. (2) Urinary retention: Plan: Acute with waldron placement. H/O BPH and TURP planned. Urology consutled, recommends to delay this until seizure issue clarified. Although Urology recommends maintaining waldron in place for 1 week, patient is requesting to have it removed. Cont finasteride and tamsulosin. (3) Type 2 diabetes mellitus, with long-term current use of insulin: Plan: Around goal. Cont insulin per protocol during hospital stay. (4) Chronic renal disease, stage 3, moderately decreased glomerular filtration rate (GFR) between 30-59 mL/min/1.73 square meter: Plan: Creatinine appears to be at baseline - follow labs (5) Hypothyroidism: Plan: TSH in ED elevated last week but T4 normal - pt to f/u with endocrinology as outpatient (6) Acute myelogenous leukemia in remission: Plan: followup with oncology as outpatient. (7) DVT prophylaxis: Plan: Hepain Full [facility]po-cont [facility] Admission and Anticipated Discharge Date Admission Date: June 09, 2021 Subjective 76 yo M with multiple medical problems and BPH presents with new onset seizure of uncertain etiology. Started on Keppra. Mental status is improved per who is at bedside with him She is concerned amitryptiline may be playing a role He takes this for chronic abdominal pain. Patient has no acute distress. Despite urology recommendations to keep it in for the next week, patient and his request that the waldron catheter be removed. Afebrile Denies pain Tolerating PO Review of Systems Review of Systems: All systems were reviewed and negative except as indicated above. Physical Exam Physical Exam: CONSTITUTIONAL: elderly, thin, frail, vitals as above, NAD EYES: EOMI bilaterally, PERRL, normal conjunctivae, no scleral icterus ENT: external ear and nose normal, MMM NECK: trachea midline RESPIRATORY: clear to auscultation bilaterally, no crackles, rales or wheezes, normal respiratory effort CARDIOVASCULAR: regular rate and rhythm, S1 and 2 heard without murmurs, gallops or rubs, no JVD, no peripheral edema CHEST: inspection of chest was normal GASTROINTESTINAL: soft, nontender, ND, no guarding MUSCULOSKELETAL: generalized weakness with no gross focal deficit. head is normocephalic and atraumatic SKIN: warm and dry NEUROLOGIC: CN 2-12 grossly intact, no sensory deficit, normal cognition, normal speech, no tremor PSYCHIATRIC: alert cooperative and oriented to person, place and time. Results & Data Results & Data ([facility]) Vital Signs (Past 12 Hours) Vital Signs Temp Pulse Pulse Resp BP BP Pulse Ox 06/10/21 15:42 75 06/10/21 11:24 37 C 78 18 168/68 H 96 06/10/21 08:19 36.3 C L 69 20 154/71 H 94 06/10/21 07:20 68 Laboratory Results Short CBC 06/10/21 Range/Units 07:20 WBC 9.73 (4.8-10.8) K/uL Hgb 11.6 L (14.0-18.0) g/dL Hct 35.0 L (42-52) % Plt Count 107 L (130-400) K/uL BMP 06/10/21 07:20 Sodium 139 Potassium 3.7 Chloride 108 H Carbon Dioxide 27 BUN 23 H Creatinine 1.31 Glucose 108 H Calcium 8.4 L Medications Administered Current Inpatient Medications Acetaminophen (Acetaminophen 325 Mg Tab) 650 mg PO Q4H PRN PRN Reason: Pain or Fever Stop: 07/09/21 09:58 Last Admin: 06/09/21 22:10 Dose: 650 mg Documented by: Amitriptyline HCl (Amitriptyline Hcl 25 Mg Tab) 25 mg PO HS KASSANDRA Stop: 07/09/21 20:59 Last Admin: 06/09/21 19:54 Dose: 25 mg Documented by: Amlodipine Besylate (Amlodipine Besylate 5 Mg Tab) 5 mg PO DAILY KASSANDRA Stop: 07/09/21 11:59 Last Admin: 06/10/21 11:55 Dose: 5 mg Documented by: Cyanocobalamin (Cyanocobalamin 500 Mcg Tablet (Vitamin B-12)) 1,000 mcg PO DAILY KASSANDRA Stop: 07/10/21 08:59 Last Admin: 06/10/21 11:55 Dose: 1,000 mcg Documented by: Dextrose (Dextrose 50% 50 Ml Syringe) 25 - 50 ml IV UD PRN; Protocol PRN Reason: Hypoglycemia Protocol Stop: 07/09/21 11:26 Finasteride (Finasteride 5 Mg Tab) 5 mg PO QAM [facility] Stop: 07/09/21 11:59 Last Admin: 06/10/21 11:55 Dose: 5 mg Documented by: Glucagon (Glucagon For Inj 1 Mg Vial) 1 mg SQ UD PRN; Protocol PRN Reason: Hypoglycemia Protocol Stop: 07/09/21 11:26 Glucose (Glucose 10 Tabs/Tube) 4 - 8 tabs PO UD PRN; Protocol PRN Reason: Hypoglycemia Protocol Stop: 07/09/21 11:26 Glucose (Glucose 40% Gel 15 Gm Tube) 15 - 30 gm PO UD PRN; Protocol PRN Reason: Hypoglycemia Protocol Stop: 07/09/21 11:26 Heparin Sodium (Porcine) (Heparin Sod 5,000 Unit/0.5 Ml Vial) 5,000 units SQ Q12 [facility] Stop: 07/09/21 20:59 Last Admin: 06/10/21 11:55 Dose: 5,000 units Documented by: Lorazepam (Ativan) 1 mg in 2 mls @ 2 mls/min IV Q2H PRN PRN Reason: seizure Stop: 07/09/21 11:25 Levetiracetam 500 mg/ Sodium (Chloride) 105 mls @ 420 mls/hr IV Q12H [facility] Stop: 07/09/21 13:59 Last Admin: 06/10/21 15:33 Dose: 420 mls/hr Documented by: Insulin Aspart (Insulin Aspart Per Unit) 0 units SC ACHS [facility] Stop: 07/09/21 11:29 Last Admin: 06/10/21 12:58 Dose: Not Given Documented by: Insulin Glargine (Insulin Glargine Solostar 100 Units/Ml 3 Ml Pen) 10 units SC HS [facility] Stop: 07/09/21 20:59 Last Admin: 06/09/21 19:54 Dose: 10 units Documented by: Levothyroxine Sodium (Levothyroxine Sodium 125 Mcg Tablet) 125 mcg PO DAILYBB [facility] Stop: 07/09/21 11:59 Last Admin: 06/10/21 06:00 Dose: 125 mcg Documented by: Metoprolol Succinate (Metoprolol Succ 25mg Ext Rel Tab) 12.5 mg PO QPM [facility] Stop: 07/09/21 20:59 Last Admin: 06/09/21 19:53 Dose: 12.5 mg Documented by: Miscellaneous (Carbohydrates For Hypoglycemia ) 15 - 30 gm PO UD PRN PRN Reason: Hypoglycemia Protocol Stop: 07/09/21 11:26 Tamsulosin HCl (Tamsulosin Hcl 0.4 Mg Cap) [facility] [place] Stop: 07/09/21 11:59 Last Admin: 06/10/21 11:55 Dose: 0.4 mg Documented by:
--- NOTE | 2021-06-10 16:12 | Communication Note ---
Date of Service: June 10, 2021 I saw Oz today in the company of his who went over the events of the evening during which she had the convulsive-like movements in the middle of the night that awakened her from sleep. She is concerned that this may be due to his amitriptyline which she is now taking at 25 mg at bedtime but has been on this for quite some time and while he had some issues with lethargy and confusion on amitriptyline at 75 mg in the past it is hard for me to believe that 25 mg taken for this duration would have been sufficient to precipitate seizure-like activity as the only cause. His exam is stable with the articulatory disturbances a little word finding issues and minimal right-sided weakness and the MRI has shown no evidence for new structural disease. While the EEG done for 20 minutes is normal it does not exclude the diagnosis of a focal seizure with secondary generalization and I think it wisest in this setting to continue the Keppra at 500 mg twice a day and have him seen in our office in about 3 to 4 weeks. We may end up doing an ambulatory EEG on an outpatient basis just to see if we can find evidence to support the continued use of Keppra. I will discuss this with Lauren Schofield PA-C when we see him back in follow-up and we are in the process of making arrangements for this visit to be scheduled He can be discharged on Keppra 500 mg twice a day from a neurologic point of view Seth Figueroa MD
[2021-06-10 18:19] LABS: Appearance Urine Clear (Clear); Bacteria Urine Automated Negative (Negative); Bilirubin Urine Negative (Negative); Blood Urine 3+ (Negative); Color Urine Yellow; Glucose Urine UA Negative (Negative); Ketones Urine Trace (Negative); Leukocyte Esterase Urine Trace (Negative); Nitrite Urine Negative (Negative); Protein Urine 1+ (Negative); RBC Urine Automated >30 /hpf (0-4); Specific Gravity Urine 1.013 (1.000-1.030); Urobilinogen Urine Negative (Negative)
[2021-06-10] MEDS: INSULIN GLARGINE SOLOSTAR 100 UNITS/ML 3 ML PEN SC SCH (21:07)
[2021-06-10] MEDS: AMITRIPTYLINE HCL 25 MG TAB PO SCH (21:07)
[2021-06-10] MEDS: METOPROLOL SUCC 25MG EXT REL TAB PO SCH (21:08)
[2021-06-11] MEDS ORDERED: levETIRAcetam 500 MG TAB PO SCH
[2021-06-11] MEDS: levETIRAcetam 500 MG in 0.9 % SODIUM CHLORIDE 100 ML IV SCH ×2 (03:51→14:40)
[2021-06-11] MEDS: LEVOTHYROXINE SODIUM 125 MCG TABLET PO SCH (05:16)
[2021-06-11] MEDS: amLODIPine BESYLATE 5 MG TAB PO SCH (08:36)
[2021-06-11] MEDS: CYANOCOBALAMIN 500 MCG TABLET (VITAMIN B-12) PO SCH (08:37)
[2021-06-11] MEDS: HEPARIN SOD 5,000 UNIT/0.5 ML VIAL SQ SCH (08:37)
[2021-06-11] MEDS: FINASTERIDE 5 MG TAB PO SCH (08:37)
[2021-06-11] MEDS: TAMSULOSIN HCL 0.4 MG CAP PO SCH (08:37)
[2021-06-11] MEDS: INSULIN ASPART PER UNIT SC SCH ×3 (08:49→17:40)
--- NOTE | 2021-06-11 17:44 | Discharge Summary ---
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 History obtained from pt and his at the bedside. Pt with history of mild cognitive impairment since CVA so provides many of the details. Around 2:30 am today, pt's woke up to the bed shaking from the patient having what she describes as the pt's entire body shaking. It was dark so she had difficulty assessing exactly which portions were affected. This lasted several seconds and then the patient apparently went unresponsive but was still breathing. EMS was called and pt was reportedly still unresponsive on their arrival but gradually regained awareness in the ambulance. His thinks this decreased responsiveness lasted about 20-30 minutes. No incontinence, no tongue-biting. Pt reportedly had a similar episode in 2019 that was attributed to sepsis after an EEG was negative. The patient reports feeling in his usual state of health last evening when he went to bed. Denies any recent illness. Admission Exam Per Admitting Provider Constitutional: Sleeping but arousable, no acute distress. Answering questions appropriately. Eyes: PERRL, conjunctivae normal, anicteric sclerae EOMs - difficulty with tracking to the left but able to complete, slow to respond to commands ENMT: Tongue midline without lacerations Neck: trachea midline Respiratory: no respiratory distress and no labored breathing Auscultation: lungs clear to auscultation bilaterally and + diminished lung sounds (poor inspiratory effort) Cardiovascular: Rate/Rhythm: regular rate and regular rhythm Heart Sounds: + murmur Vessels: dorsalis pedis pulses present and radial pulses present Extremities: no calf tenderness and no edema Gastrointestinal (Abdomen): Inspection/Auscultation: normal bowel sounds; abdomen not distended Percussion/Palpation: abdomen soft; abdomen nontender Musculoskeletal: Head/Neck/Chest: normocephalic, head atraumatic and neck supple Skin: no rashes and no jaundice Neurologic: moves all extremities; no focal motor deficits Psychiatric: A+Ox3, euthymic affect Principal Diagnosis Seizure Acute urinary retention Discharge Exam CONSTITUTIONAL: elderly, thin, frail, vitals as above, NAD EYES: normal conjunctivae, no scleral icterus ENT: external ear and nose normal, MMM NECK: trachea midline RESPIRATORY: clear to auscultation bilaterally, no crackles, rales or wheezes, normal respiratory effort CARDIOVASCULAR: regular rate and rhythm, S1 and 2 heard without murmurs, gallops or rubs, no JVD, no peripheral edema CHEST: inspection of chest was normal GASTROINTESTINAL: soft, nontender, ND, no guarding MUSCULOSKELETAL: generalized weakness with no gross focal deficit. head is normocephalic and atraumatic SKIN: warm and dry NEUROLOGIC: CN 2-12 grossly intact, no sensory deficit, normal cognition, normal speech, no tremor PSYCHIATRIC: alert cooperative and oriented to person, place and time. Discharge Data Allergies Allergy/AdvReac Type Severity Reaction Status Date / Time duloxetine [From Cymbalta] AdvReac Mild Hypertensio Unverified 06/09/21 10:05 n Influenza Virus Vaccines AdvReac Mild Nausea Verified 06/09/21 10:05 Consultations 06/09/21 08:35 ED Decision to Admit Stat 06/09/21 09:42 Consult Neurology Routine 06/09/21 11:24 Consult Urology Routine Ordered Studies 06/09/21 04:18 CT angio head w con Urgent CT angio neck with con Urgent CT head/brain wo con Urgent 06/09/21 05:43 CT abd pelvis wo con Urgent 06/09/21 11:24 MR brain seizure wo/w con Routine Hospital Course (1) Seizure: Similar episode in 2019 accompanying sepsis, which is not present. Possible seizure. Neurology consulted and working up. Cont Keppra. Mental status has improved to baseline and safe for return home per PT and OT. MRI negative for new mass or seizure focus. EEG (20 minutes) was unrevealing. concerned about amitriptyline. Decreased dose at discharge to 10mg daily. Followup with PCP to de-escalate off completely and monitor for rebound abdominal pain. Needs to followup with Neurology for 72 hr EEG and followup appointment. Cont Keppra. (2) Urinary retention: Acute with waldron placement. H/O BPH and TURP planned. Urology consulted, recommends to delay this until seizure issue clarified. Although Urology recommends maintaining waldron in place for 1 week, patient is requesting to have it removed. Cont finasteride and tamsulosin. Total Time Total Time Spent Total Time Spent (In Minutes): 60 Discharge Plan Discharge Items Patient Disposition: Home - Self-Care Reason For Visit: POSSIBLE SEIZURE,URINARY RETENTION Discharge Diagnosis: Seizure Acute urinary retention Condition on Discharge: Good Activity: Resume your previous activity Non-emergency contact: Primary Care Provider Call non-emergency contact if: you have any medication questions, your symptoms worsen, your pain is not controlled, your pain is worsening, your pain is unusual for you and your pain is concerning for you Follow-up/Referrals: Alena Lang MD [Primary Care Provider] - Diet: Heart Healthy Addtl Attending Provider Instructions: Please take all medications as instructed on discharge as below. If you would like to continue the amitriptyline I have offered and he is lower dose to wean down, 10 mg every evening. This may be helpful in titrating him off this drug slowly while evaluating the effects of Keppra on his pain. You have been started on an antiseizure medicine called Eliud for seizures. You are restricted by the department of transportation from driving. It is also recommended you do not swim alone or bathe alone and do not put yourself at a height where you could fall if another seizure were to happen. Please follow-up with [facility] neurology in 4 to 6 weeks. As we discussed, for a second opinion from Dr. Casey Adams at [facility] [place], have please have your primary care doctor place a referral and make an appointment with this physician's office. It is recommended that you touch base with your urologist within a week to let them know how you are doing with respect to urination. Importantly please continue the finasteride and tamsulosin to help with prostate swelling. It is recommended that you follow-up with your primary care doctor within a week of discharge from the hospital to ensure you are still doing well after going home. This will also be important to ensure you are doing well on these new medications and to discuss alternatives to the amitriptyline for your chronic abdominal pain. It was a pleasure taking care of you! Please call if you have any questions or problems. You can reach a [facility] hospitalist on duty at [facility] 24 hours a day by calling [phone]. Take care of yourself. DO [facility] Pending Studies at Discharge: No Stand-Alone Forms: [facility] Medications and DC Order Prescriptions: New amitriptyline 10 mg tablet 10 mg PO HS Qty: 30 RF: 0 levetiracetam [Keppra] 500 mg tablet 500 mg PO BID Qty: 60 RF: 0 Continued levothyroxine 125 mcg tablet 125 mcg PO DAILY Qty: 90 RF: 1 lysine 500 mg tablet 500 mg PO DAILY RF: 0 zinc gluconate 30 mg tablet 50 mg PO DAILY RF: 0 metoprolol succinate [Toprol XL] 25 mg tablet extended release 24 hr 12.5 mg PO QPM RF: 0 tamsulosin 0.4 mg capsule 0.4 mg PO QAM RF: 0 potassium chloride 20 mEq tablet extended release 20 meq PO DAILY PRN (Reason: Hypokalemia) RF: 0 Probiotic 3 billion cell Capsule 3,000 mmu cells PO QAM RF: 0 dicyclomine 10 mg capsule 10 mg PO AC PRN (Reason: Abdominal Discomfort) RF: 0 finasteride 5 mg tablet 5 mg PO QAM RF: 0 acetaminophen [Tylenol Extra Strength] 500 mg Tablet 500 mg PO QID PRN (Reason: Pain) RF: 0 simethicone [Gas-X Extra Strength] 125 mg capsule 80 mg PO ACHS PRN (Reason: Stomach Upset) RF: 0 cyanocobalamin (vitamin B-12) 1,000 mcg Tablet 1,000 mcg PO DAILY RF: 0 turmeric root extract 500 mg Capsule 500 mg PO DAILY RF: 0 amlodipine [Norvasc] 5 mg tablet 5 mg PO DAILY RF: 0 fluoride (sodium) [PreviDent 5000 Booster Plus] 1.1 % paste 1 ea dental UD RF: 0 Lantus Solostar U-100 Insulin 100 unit/mL (3 mL) insulin pen 12 unit SQ HS RF: 0 Discontinued amitriptyline 25 mg tablet 25 mg PO HS RF: 0 Discharge Orders: Discharge Order (Routine); Ordered 06/11/21 Ordered By: Lisa Cortes/Other Patient Handouts: Managing Type 2 Diabetes Admission Data Admit Date/Time: 06/09/21 09:42 Attending Provider: Lisa Hawk Admit Provider: Michele Ford Primary Care Provider: Alena Lang Other Providers: Theo Gracia ; Ben Lam ; Seth Figueroa Other Interventions: Discharge Summary Assessment (RN) Last Done: 06/11/21 18:20
== END 2021-06-11 19:45 | disposition home or self-care (01) | DRG 101 ==
LOC: ED 04:12 → EDINP 09:42 → SUATTDRO 09:42 → 2N 11:50

== ENCOUNTER 2021-11-16 09:51 | Observation (INO) ==
--- NOTE | 2021-11-05 13:08 | PAT Medication Instructions ---
Medication Instructions Date of Service November 05, 2021 Home Medications Medication Instructions Recorded amitriptyline 10 mg tablet 10 mg PO HS #30 tab 06/11/21 bevacizumab 25 mg/mL intravenous See Rx Instructions INTRAVITREAL 08/23/21 solution (Avastin) .COMPLEX #4 ml finasteride 5 mg tablet 5 mg PO QAM #90 tab 08/30/21 acetaminophen 500 mg tablet (Tylenol Extra Strength) 500 mg PO QID PRN tamsulosin 0.4 mg capsule 0.4 mg PO QAM lysine 500 mg tablet 500 mg PO QAM turmeric root extract 500 mg capsule 500 mg PO QAM metoprolol succinate 25 mg tablet,extended release 24 hr (Toprol XL) 12.5 mg PO HS amlodipine 5 mg tablet (Norvasc) 5 mg PO HS insulin glargine 100 unit/mL (3 mL) subcutaneous pen (Lantus Solostar U-100 Insulin) 12 unit SQ HS amitriptyline 10 mg tablet 10 mg PO HS bevacizumab 25 mg/mL intravenous solution (Avastin) See Rx Instructions finasteride 5 mg tablet 5 mg PO QAM cephalexin 500 mg capsule 2,000 mg PO UD PRN levothyroxine 125 mcg tablet 125 mcg PO QAM Continue as directed cephalexin 500 mg capsule 2,000 mg PO UD PRN (if needed) ASK your prescriber and surgeon bevacizumab 25 mg/mL intravenous solution (Avastin) See Rx Instructions STOP taking 2 weeks before surgery lysine 500 mg tablet 500 mg PO QAM turmeric root extract 500 mg capsule 500 mg PO QAM Take morning of surgery With a small sip of water, OTHERWISE NOTHING TO EAT OR DRINK AFTER MIDNIGHT: acetaminophen 500 mg tablet (Tylenol Extra Strength) 500 mg PO QID PRN (if needed) tamsulosin 0.4 mg capsule 0.4 mg PO QAM finasteride 5 mg tablet 5 mg PO QAM levothyroxine 125 mcg tablet 125 mcg PO QAM Take evening before surgery acetaminophen 500 mg tablet (Tylenol Extra Strength) 500 mg PO QID PRN (if needed) metoprolol succinate 25 mg tablet,extended release 24 hr (Toprol XL) 12.5 mg PO HS amlodipine 5 mg tablet (Norvasc) 5 mg PO HS insulin glargine 100 unit/mL (3 mL) subcutaneous pen (Lantus Solostar U-100 Insulin) 12 unit SQ HS amitriptyline 10 mg tablet 10 mg PO HS Other Notes If you have any questions please call us at [phone] or [phone] or [phone] or [phone]
--- NOTE | 2021-11-08 10:10 | Anesthesiology Consultation ---
Date of Service November 08, 2021 Assessment & Plan (1) Encounter for pre-operative examination: - check BSG am DOS. - MCI s/p CVA 2018: to accompany DOS. - hx radiation to parotid: potential difficult airway. - Pt's notes hx of hypoglycemia to BSG in 60s in hospital with sliding scale, requests caution with use during overnight observation. They were advised they need to contact surgeon's office which will be coordinating diabetic control as anesthesia will not be involved after post-op. She verbalized understanding and agreement, denied additional questions or concerns. - PCP 11/04/21 [facility]: "...pre-op clearance...TURP...denied any CP but still having mild SOB with exertion from prior pneumonia (improving)...seizure like activity: EEG showed no activity. Keppra was tapered off. Pt is feeling good. No recent episode...chronic medical conditions has been well controlled. Revised cardiac index of 2...cleared for TURP..." - cardio 12/09/20 [facility]: "...Patient describes stable cardiac signs and symptoms...most recent echo had been a transesophageal echocardiogram performed in 2019, a repeat study will be requested, preferably be to be performed at [facility] and follow-up of his bioprosthetic aortic valve structure and function. Blood pressure is controlled at present, with occasional lightheadedness, and relative low blood pressure. Low-dose lisinopril recently added by primary care for renal protective affects...patient declines statin therapy again today...2018, aspirin was withdrawn and the setting of thrombocyt openia treated for AML. Low normal platelet count noted more recently. Patient is comfortable on his current medication regimen, and although ideally, per guidelines, aspirin is a consideration, he is frail, very concerned about side effects of medications, and I think it is reasonable to proceed with his current medications without change..." Cardiac history including physical examination discussed with Dr. Crenshaw who advised patient acceptable to proceed without needing additional evaluation or testing. - COVID screening: Per assessment on 11/08/2021: Travel screen negative, no known COVID-19 positive contacts or current COVID-19 related symptoms in past 2 weeks. Surgeon arranging preop COVID testing, scheduled 11/12/2021. Awaiting results. Chart Review Chart Review: Acceptable Risk for Surgery and Patient seen in Pre Admission Testing Teaching & Discussion Pre-Anesthesia Teaching/Discussion Notes: Instructed NPO after midnight before surgery, except medications with 15 cc of water. Medication instructions provided according to the PAT guidelines. History Surgery Operation Date: 11/16/21 09:50 Proposed Procedures p TURP (Transurethral Resection of the Prostate) - Tom Adams MD Height/Weight Height: 5 ft 4 in Weight: 55 kg Allergies Allergy/AdvReac Type Severity Reaction Status Date / Time sirolimus Allergy Mild Itch Unverified 11/05/21 15:50 duloxetine [From Cymbalta] AdvReac Mild Hypertensio Unverified 11/03/21 14:31 n Influenza Virus Vaccines AdvReac Mild Nausea Verified 11/03/21 14:31 Medications Home Medications Medication Instructions Recorded Confirmed Last Taken acetaminophen 500 mg tablet 500 mg PO QID PRN 07/10/18 11/03/21 03/05/19 11:00 (Tylenol Extra Strength) tamsulosin 0.4 mg capsule 0.4 mg PO QAM 01/26/19 11/03/21 06/08/21 lysine 500 mg tablet 500 mg PO QAM 11/25/19 11/03/21 07/29/20 turmeric root extract 500 mg 500 mg PO QAM 07/29/20 11/03/21 06/08/21 capsule metoprolol succinate 25 mg 12.5 mg PO HS tab 08/17/20 11/03/21 06/08/21 tablet,extended release 24 hr (Toprol XL) amlodipine 5 mg tablet (Norvasc) 5 mg PO HS 06/03/21 11/03/21 06/08/21 insulin glargine 100 unit/mL (3 12 unit SQ HS 06/09/21 11/03/21 06/08/21 mL) subcutaneous pen (Lantus Solostar U-100 Insulin) amitriptyline 10 mg tablet 10 mg PO HS #30 tab 06/11/21 11/03/21 Unknown bevacizumab 25 mg/mL intravenous See Rx Instructions INTRAVITREAL 08/23/21 11/03/21 Unknown solution (Avastin) .COMPLEX #4 ml finasteride 5 mg tablet 5 mg PO QAM #90 tab 08/30/21 11/03/21 Unknown cephalexin 500 mg capsule 2,000 mg PO UD PRN 11/03/21 11/03/21 Unknown levothyroxine 125 mcg tablet 125 mcg PO QAM 11/03/21 11/03/21 Unknown Past Medical History Medical History (Updated 11/09/21 @ 09:31 by Radha Mccann PA-C) 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 cardio records Chronic renal disease, stage 3, moderately decreased glomerular filtration rate (GFR) between 30-59 mL/min/1.73 square meter COVID-19 06/2020 Diabetes type 2, controlled IDDM Heart failure chronic right-sided HF per 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 Exercise / Class Metabolic Activity II 4-5 Yardwork/Stairs/Walk up hill (denies CP or SOB with 1 FOS) Past Family History Family History Other Coronary heart disease Family history of diabetes mellitus in father Family history of diabetes mellitus in mother Stroke Thyroid disorder Past Surgical History Surgical History (Updated 11/09/21 @ 09:30 by Radha Mccann PA-C) Aortic valve replaced H/o aortic stenosis s/p prosthetic valve replacement (2012) H/O stem cell transplant [facility], September 2016 H/O transurethral resection of prostate 02/20/19: LMA#4 atraumatic x 1. No postop issues per anesthesia progress note. History of back surgery h/o osteomyelitis/discitis s/p lumbar laminectomy History of colonoscopy History of cystoscopy 2018 History of surgery PAROTID X2 History of surgery PEG TUBE AND SINCE REMOVED History of vascular access device INSERTION AND REMOVAL Past Anesthesia History No Hx of Anesthesia Complications and No Family Hx of Anesthesia Complications History of PONV No Hx of PONV and No Hx of Motion Sickness Social History Smoking Status: Never smoker Do You Dip or Chew Tobacco: No Hx Alcohol Use: No Hx Substance Use: No substance use type: does not use Review of Systems Occasional snoring and witnessed apneas improved since Keppra d/c per spouse. Occasional cough, occasionally productive of sputum; denies blood tinged or hemoptysis; infrequent since lower respiratory illness earlier this year. Patient denies chest pain, shortness of breath, dyspnea on exertion, reflux, fever, chills, wheezing, or palpitations. Physical Exam Vital Signs Vitals BP 147/60 P 57 TEMP 98.8 SP02 99% on RA RESP 17 Physical Full cervical extension range of motion without pain TMD < 3 finger breaths Mallampati Score 4 Dentition: intact, front permanent upper bridge; several missing teeth, chipped tooth-right upper side; denies loose teeth or implants Lungs: normal respiratory effort. Clear throughout to auscultation, no adventitious breath sounds Cardiac: regular rate and rhythm, 2/6 systolic murmur Carotid arteries: negative bruit bilat Lab Results Anesthesia Preop Results Results Anesthesia Widget: WBC 7.93 K/uL (4.8-10.8) 11/08/21 Hgb 12.3 g/dL (14.0-18.0) L 11/08/21 Hct 36.8 % (42-52) L 11/08/21 Plt 116 K/uL (130-400) L 11/08/21 Na 138 mmol/L (136-145) 11/08/21 K 4.3 mmol/L (3.5-5.1) 11/08/21 Cl 107 mmol/L (98-107) 11/08/21 CO2 26 mmol/L (21-32) 11/08/21 BUN 29 mg/dl (6-23) H 11/08/21 Creat 1.48 mg/dl (0.6-1.4) H 11/08/21 Glucose Level 126 mg/dl (70-99(Fasting)) H 11/08/21 PT 10.9 Seconds (9.0-12.0) 11/08/21 PTT 27.3 Seconds (21.0-31.0) 11/08/21 INR 1.0 (0.9-1.1) 11/08/21 TSH 3.822 uIu/ml (0.300-4.500) 11/08/21 HA1c 6.5 % (4.5-5.6) H 11/08/21 Urine Color Yellow 11/08/21 Urine Appearance Clear (Clear) 11/08/21 Urine pH 5.0 (4.5-7.5) 11/08/21 Urine Specific [place] 1.021 (1.000-1.030) 11/08/21 Urine Protein 2+ (Negative) H 11/08/21 Urine Glucose (UA) Negative (Negative) 11/08/21 Urine Ketones Trace (Negative) H 11/08/21 Urine Blood 2+ (Negative) H 11/08/21 Urine Nitrite Negative (Negative) 11/08/21 Urine Bilirubin Negative (Negative) 11/08/21 Urine Urobilinogen Negative (Negative) 11/08/21 Urine Leukocyte Esterase 1+ (Negative) H 11/08/21 Urine WBC (Auto) 10-30 /hpf (0-5) H 11/08/21 Urine RBC (Auto) 10-30 /hpf (0-4) H 11/08/21 Urine Hyaline Casts (Auto) 10-30 /lpf (0-5) H 11/08/21 Urine Epithelial Cells (Auto) >30 /lpf (0-5) H 11/08/21 Urine Bacteria (Auto) Negative (Negative) 11/08/21 Testing Electrocardiogram Date: 06/09/21 NSR, rate 90 bpm Left axis deviation Chest X-Ray Date: 11/08/21 The cardiomediastinal and hilar silhouettes are unchanged. Prior median sternotomy with cardiac valvular prosthesis. No pneumothorax, pleural effusion, airspace consolidation or overt pulmonary edema. Unchanged blunting of the lateral left costophrenic angle with chronic interstitial coarsening. Degenerative changes of the shoulders and spine. Vascular calcifications of the upper abdomen. IMPRESSION: No acute process. Echocardiogram Date: 12/30/20 EF 55-59% Grade I diastolic dysfunction Mild cLVH Normal LV wall motion Peak instantaneous pressure gradient across AV prosthesis 40 mmHg with mean pressure gradient 23 mmHg Cardio result note: Although the Doppler gradient across the bioprosthetic aortic valve are mildly elevated, it is not significantly changed compared to a prior study dating back to 2017. On 2D imaging, the prosthetic valve leaflets relatively well visualized, with normal excursion, without evidence of significant prosthetic stenosis by 2D imaging. Patient is to continue his present treatment and follow-up next year as planned. Other Testing Brain MRI 06/09/21 1. Chronic/senescent changes as above with no acute intracranial abnormality identified. 2. A multicystic lesion largely replacing the right parotid gland as not appreciably changed as compared to a 2519. Neck CTA 06/09/21 1. No acute intracranial hemorrhage, evidence of acute territorial infarction, or other acute intracranial disease process. Old infarcts are noted as above. 2. No occlusion, hemodynamically significant stenosis, aneurysm, dissection, or arteriovenous malformation in the major intracranial arteries. 3. No occlusion, hemodynamically significant stenosis, or dissection in the major cervical arteries. Carotid doppler 01/27/19 1. Calcified plaque of the bilateral carotid bulbs and proximal internal carotid arteries, left greater than right. No hemodynamically significant stenosis. 2. Normal antegrade vertebral flow bilaterally.
[~2021-11-16 09:51] MED LIST changes: +CIPROFLOXACIN / D5W 400 MG/200 ML BAG IV SCH; -INSHNI SQ; -LEVO50TA6 PO; -LISI-730 PO; +LR 15ML/HR IV SCH; -LVQ750 PO; -METO25TA56 PO; -PRD20 PO; -SPT/ PO; -VNTHFA/IN INH
--- NOTE | 2021-11-16 10:06 | History & Physical Bridge Note ---
Date of Service November 16, 2021 History & Physical Bridge Note I have examined the patient, reviewed the History & Physical and in the interval since the performance of the History & Physical I have noted the following changes of clinical significance: no changes noted
[2021-11-16] MEDS ORDERED: ePHEDrine sulfate 50 MG/ML AMP IV PRN (11:48)
[2021-11-16] MEDS ORDERED: MEPERIDINE HCL 25 MG/ML CARP/VIAL IV PRN (11:48)
[2021-11-16] MEDS ORDERED: LABETALOL HCL IV 5 MG/ML 20ML IV PRN (11:48)
[2021-11-16] MEDS ORDERED: PHENYLEPHRINE 100MCG/ML 5ML SYR IV PRN (11:48)
[2021-11-16] MEDS ORDERED: HYDROmorphone INJ 1 MG/ML SYRINGE IV PRN (11:48)
[2021-11-16] MEDS ORDERED: fentaNYL citrate 100 MCG/2 ML VIAL IV PRN (11:48)
[2021-11-16] MEDS ORDERED: ONDANSETRON INJ 2 MG/ML 2 ML VIAL IV PRN (11:48)
[2021-11-16] MEDS ORDERED: ATROPINE SULFATE 0.1 MG/ML 10ML SYR IV PRN (11:48)
[2021-11-16] MEDS ORDERED: PROPOFOL IV EMULSION 10 MG/ML 20 ML VIAL IV ONE (12:52)
[2021-11-16] MEDS ORDERED: fentaNYL citrate 100 MCG/2 ML VIAL ONE (12:52)
[2021-11-16] MEDS ORDERED: LIDOCAINE 2% 2 ML VIAL/AMP(20MG/ML) INFIL ONE (12:53)
[2021-11-16] MEDS ORDERED: PHENYLEPHRINE 100MCG/ML 5ML SYR ONE (13:04)
[2021-11-16] MEDS ORDERED: DEXAMETHASONE SOD INJ 4 MG/ML VIAL ONE (13:14)
[2021-11-16] MEDS ORDERED: ONDANSETRON INJ 2 MG/ML 2 ML VIAL ONE (13:14)
[2021-11-16] MEDS ORDERED: ePHEDrine sulfate 50 MG/ML AMP ONE (13:38)
--- NOTE | 2021-11-16 14:50 | Operative Report ---
PG Post Operative Report Pre & Post Diagnosis Operation Date: 11/16/21 09:50 Pre-Op Diagnosis: Benign Prostate Hyperplasia with Urinary Obstruction/Lower Urinary Tract Symptoms Post-Op Diagnosis: Benign Prostate Hyperplasia with Urinary Obstruction/Lower Urinary Tract Sympt oms I identified the patient and participated in the time-out.: Yes Procedure Operation Date: 11/16/21 09:50 Actual Procedures p Transurethral Resection of the Prostate - Tom Adams MD Surgeon Tom Adams MD Ux Engineer none Estimated Blood Loss 15 Findings Consistent with Post-Op Diagnosis Specimens Prostate chips Description of Procedure To begin the case I passed a 27 Croatian resectoscope with 30 degree lens and visual obturator. Inspection revealed a healthy-appearing urethra, a very large prostate with intrusion into the bladder and a trabeculated bladder. I was able to identify the ureteral orifice as well as circumferential protrusion of the prostate into the bladder. I incised the bladder neck and prostate tissue at 5 and 7:00 with care to avoid encroachment upon the UO. I then resected the tissue between these 2 incisions. I then proceeded to resect the tissue around the bladder neck circumferentially. I moved onto the left lateral lobe followed by the right lateral lobe. A loop was used for all of this resection. I then utilized a button to help smooth this tissue and obtain meticulous hemostasis. There was still a substantial amount of residual tissue so I returned to the loop and repeated the same process I had performed previously resecting additional tissue circumferentially around the prostate. After feeling that I had adequately resected tissue, I evacuated all chips out of the bladder and passed them off the table. I utilized a button to sequentially evaluate the prostate and obtain hemostasis. After feeling that we had achieved the goals of surgery I withdrew the scope and placed a 22 Croatian three-way Osman catheter and begin continuous bladder irrigationthe urine was clear. He was reversed of anesthesia and taken to the recovery room in stable condition. There were no complications. I attest to the content of the Intraoperative Record and any orders documented therein. Any exceptions are noted below.
--- NOTE | 2021-11-16 15:00 | Anesthesiology Progress Note ---
Date of Service November 16, 2021 Anesthesia Post Procedure Vital Signs Vital Signs: Temp Pulse Pulse Resp BP Pulse Ox 11/16/21 14:50 83 14 141/94 H 97 11/16/21 14:40 83 19 114/61 99 11/16/21 14:30 36.1 C L 92 H 15 143/75 H 97 11/16/21 10:13 71 18 154/56 H 98 Transfer of Care Handoff Completed per policy Notes Mental Status: alert / awake / arousable and participated in evaluation Patient Amnestic to Procedure: Yes Nausea / Vomiting: adequately controlled Pain: adequately controlled Airway Patency, RR, SpO2: stable & adequate BP & HR: stable & adequate Hydration State: stable & adequate Anesthetic Complications: no major complications apparent
[2021-11-16 15:14] LABS: Basophils # (auto) 0.02 K/uL (0-0.2); Basophils % (auto) 0.2 %; Eosinophils # (auto) 0.11 K/uL (0-0.5); Eosinophils % (auto) 1.2 %; Hematocrit (blood only) 34.5 % (42-52); Hemoglobin 11.3 g/dL (14.0-18.0); Immature Granulocytes # (auto) 0.03 K/uL (0.00-0.02); Immature Granulocytes % (auto) 0.3 %; Lymphocytes # (auto) 3.67 K/uL (1.2-3.4); Lymphocytes % (auto) 40.1 %; Mean Corpuscular Hemoglobin 29.5 pg (25-34); Mean Corpuscular Volume 90.1 fL (80-100); Mean Platelet Volume 10.3 fL (7.4-10.4); Monocytes # (auto) 0.28 K/uL (0.11-0.59); Monocytes % (auto) 3.1 %; Neutrophils # (auto) 5.05 K/uL (1.4-6.5); Neutrophils % (auto) 55.1 %; Platelet Count 102 K/uL (130-400); RDW Coefficient of Variation 15.8 % (11.5-14.5); RDW Standard Deviation 52.6 fL (36.4-46.3); Red Blood Count 3.83 M/uL (4.7-6.1); White Blood Count 9.16 K/uL (4.8-10.8)
[2021-11-16 15:41] LABS: Mean Corpuscular Hgb Conc 32.8 g/dL (32-36)
[2021-11-16] MEDS ORDERED: ACETAMINOPHEN 500 MG TAB PO PRN (15:45)
[2021-11-16] MEDS ORDERED: traMADol HCL 50 MG TABLET PO PRN (15:45)
[2021-11-16] MEDS ORDERED: PHARMACY GLYCEMIC MGMT CONSULT PRN (15:45)
[2021-11-16 15:58] LABS: BUN Creatinine Ratio 17.2 (10-20); Calcium 8.9 mg/dl (8.5-10.1); Creatinine Clr Calc Pharmacy 34.3 ml/min; Est GFR (African American) 54.6 ml/min; Est GFR (Non-African American) 47.1 ml/min
[2021-11-16] MEDS: LACTATED RINGER'S 1,000 ML IV SCH (16:24)
[2021-11-16] MEDS: INSULIN ASPART PER UNIT SC SCH ×2 (17:54→20:48)
[2021-11-16] MEDS: AMITRIPTYLINE HCL 10 MG TAB PO SCH (20:39)
[2021-11-16] MEDS: amLODIPine BESYLATE 5 MG TAB PO SCH (20:40)
[2021-11-16] MEDS: METOPROLOL SUCC 25MG EXT REL TAB PO SCH (20:40)
[2021-11-17 06:08] LABS: Basophils # (auto) 0.01 K/uL (0-0.2); Basophils % (auto) 0.1 %; Hematocrit (blood only) 33.3 % (42-52); Hemoglobin 10.9 g/dL (14.0-18.0); Immature Granulocytes # (auto) 0.05 K/uL (0.00-0.02); Immature Granulocytes % (auto) 0.4 %; Lymphocytes # (auto) 2.52 K/uL (1.2-3.4); Lymphocytes % (auto) 22.7 %; Mean Corpuscular Hgb Conc 32.7 g/dL (32-36); Mean Corpuscular Volume 88.6 fL (80-100); Mean Platelet Volume 11.4 fL (7.4-10.4); Monocytes # (auto) 0.29 K/uL (0.11-0.59); Monocytes % (auto) 2.6 %; Neutrophils # (auto) 8.25 K/uL (1.4-6.5); Neutrophils % (auto) 74.2 %; Platelet Count 113 K/uL (130-400); RDW Coefficient of Variation 15.9 % (11.5-14.5); RDW Standard Deviation 51.6 fL (36.4-46.3); Red Blood Count 3.76 M/uL (4.7-6.1); White Blood Count 11.12 K/uL (4.8-10.8)
[2021-11-17 06:31] LABS: BUN Creatinine Ratio 20.6 (10-20); Calcium 8.7 mg/dl (8.5-10.1); Creatinine Clr Calc Pharmacy 27.6 ml/min; Est GFR (Non-African American) 36.3 ml/min; Potassium 4.9 mmol/L (3.5-5.1)
[2021-11-17] MEDS: LEVOTHYROXINE SODIUM 125 MCG TABLET PO SCH (08:21)
[2021-11-17] MEDS: FINASTERIDE 5 MG TAB PO SCH (08:21)
--- NOTE | 2021-11-17 08:23 | Urology Progress Note ---
Date of Service November 17, 2021 Assessment & Plan (1) BPH loc w urin obs/LUTS: Plan: POD #1 s/p TURP for a very large prostate - will continue CBI for the next few hours, consider clamping if it remains clear at 10AM - if hemostatic, consider a voiding trial - low threshold to simply continue CBI for one additional day and repeat the efforts at clamping/catheter removal tomorrow if he does not appear to be a perfect candidate for removal today Admission and Anticipated Discharge Date Admission Date: November 16, 2021 Subjective feels fine reports he had an episode of clot obstruction of the catheter last night CBI currently running smoothly tolerating a diet no hypoglycemia, etc labs appropriate - slight uptick in Cr Physical Exam Physical Exam: urine fruit punch on very slow cbi, but cleared immediately when the CBI was opened up Constitutional: well developed and well nourished Respiratory: no respiratory distress Cardiovascular: Extremities: no pedal edema Gastrointestinal (Abdomen): Inspection/Auscultation: abdomen normal to inspection Results & Data ([facility]) Vital Signs (Past 12 Hours) Vital Signs Temp Pulse Resp BP BP Pulse Ox 11/17/21 07:10 36.8 C 76 16 144/67 H 94 11/17/21 04:11 37.1 C 79 18 116/63 95 11/17/21 00:05 37.0 C 80 18 120/68 96 11/16/21 20:41 36.8 C 84 18 123/75 92 PG Care Time/CCT Total # of Minutes Spent Total Time Spent with Patient: Total time spent is greater than 50% in coordination of care (as documented) at patient's floor/unit and/or counseling patient: Coding Level of Care Code 09156 Subseq Hosp Care Lvl 2 Diagnoses BPH loc w urin obs/LUTS N40.1
[2021-11-17] MEDS ORDERED: INSULIN GLARGINE SOLOSTAR 100 UNITS/ML 3 ML PEN SC SCH ×2 (09:00→16:30)
--- NOTE | 2021-11-17 09:08 | Pharmacy Report ---
Pharmacy Glycemic Short Note 2 - Date of Service November 17, 2021 - Glycemic Short BSG Results (Last 24 hours): 11/16/21 11/16/21 11/16/21 10:11 12:15 14:32 Glucose POC Glucose 74 89 134 H 11/16/21 11/16/21 11/16/21 14:59 16:03 17:35 Glucose 133 H POC Glucose 125 H 139 H 11/16/21 11/17/21 11/17/21 20:35 00:03 03:21 Glucose POC Glucose 250 H 272 H 241 H 11/17/21 11/17/21 05:33 08:22 Glucose 267 H POC Glucose 233 H OUTPATIENT ANTIDIABETIC REGIMEN: * NPH 10 units SC qAM * HbA1c: 6.5% (11/08/21) ASSESSMENT: * ASHOK is a 76 year old male POD #1 s/p TURP * Received 8 mg IV dexamethasone in OR * BSGs unsurprisingly elevated yesterday postoperatively - of note, patient did not receive any basal insulin yesterday * No ongoing steroids ordered at this time * Fasting BSG of 233 mg/dL this morning, will order patient's home dose of basal insulin today in addition to Novolog due to residual hyperglycemic effects from yesterday's steroids. * Patient intermittently refusing insulin doses (including basal this morning) PLAN FOR INPATIENT GLYCEMIC CONTROL: * Basal insulin * Lantus 10 units SQ daily (patient refused), will attempt to give 8 units with dinner * Reassess in AM * Bolus insulin * NovoLog per scale ACHS or Q6hrs while NPO * Goal Range: Low 110 mg/dL - High 140 mg/dL * Correction Factor: 25 mg/dL/unit * Nutritional / Prandial insulin per carb ratio of 1 unit per 10 grams CHO consumed
[2021-11-17] MEDS: INSULIN ASPART PER UNIT SC SCH ×4 (10:44→21:52)
[2021-11-17] MEDS: LACTATED RINGER'S 1,000 ML IV SCH (12:09)
[2021-11-17] MEDS ORDERED: GLUCAGON FOR INJ 1 MG VIAL IM PRN (15:45)
[2021-11-17] MEDS ORDERED: CARBOHYDRATES FOR HYPOGLYCEMIA PO PRN (15:45)
[2021-11-17] MEDS ORDERED: GLUCOSE 10 TABS/TUBE PO PRN (15:45)
[2021-11-17] MEDS ORDERED: DEXTROSE 50% 50 ML SYRINGE IV PRN (15:45)
[2021-11-17] MEDS ORDERED: GLUCOSE 40% GEL 15 GM TUBE PO PRN (15:45)
[2021-11-17] MEDS: AMITRIPTYLINE HCL 10 MG TAB PO SCH (20:48)
[2021-11-17] MEDS: METOPROLOL SUCC 25MG EXT REL TAB PO SCH (20:48)
[2021-11-17] MEDS: amLODIPine BESYLATE 5 MG TAB PO SCH (20:49)
[2021-11-18] MEDS: LEVOTHYROXINE SODIUM 125 MCG TABLET PO SCH (07:48)
[2021-11-18] MEDS: LACTATED RINGER'S 1,000 ML IV SCH (07:48)
[2021-11-18] MEDS: FINASTERIDE 5 MG TAB PO SCH (07:48)
--- NOTE | 2021-11-18 08:50 | Pharmacy Report ---
Pharmacy Glycemic Short Note 2 - Date of Service November 18, 2021 - Glycemic Short BSG Results (Last 24 hours): 11/17/21 11/17/21 11/17/21 12:12 15:43 17:21 POC Glucose 234 H 191 H 150 H 11/17/21 11/18/21 20:29 08:12 POC Glucose 210 H 139 H OUTPATIENT ANTIDIABETIC REGIMEN: * NPH 10 units SC qAM * HbA1c: 6.5% (11/08/21) ASSESSMENT: 11/18/21: * Oz received 16 units of SQ insulin yesterday (8 units Lantus + 8 units Novolog) * Fasting BSG much improved after patient agreed to accept Lantus dose ordered for yesterday evening. Will continue Lantus 8 units daily. * Post prandial BSGs fluctuate. When patient allows Novolog administration, Novolog carb coverage and correction seems appropriate. ' 11/17/21: * ASHOK is a 76 year old male POD #1 s/p TURP * Received 8 mg IV dexamethasone in OR * BSGs unsurprisingly elevated yesterday postoperatively - of note, patient did not receive any basal insulin yesterday * No ongoing steroids ordered at this time * Fasting BSG of 233 mg/dL this morning, will order patient's home dose of basal insulin today in addition to Novolog due to residual hyperglycemic effects from yesterday's steroids. * Patient intermittently refusing insulin doses (including basal this morning) PLAN FOR INPATIENT GLYCEMIC CONTROL: * Basal insulin * Lantus 8 units SQ q24h * Bolus insulin * NovoLog per scale ACHS or Q6hrs while NPO * Goal Range: Low 110 mg/dL - High 140 mg/dL * Correction Factor: 25 mg/dL/unit * Nutritional / Prandial insulin per carb ratio of 1 unit per 10 grams CHO consumed
[2021-11-18] MEDS: INSULIN ASPART PER UNIT SC SCH ×2 (09:22→13:32)
--- NOTE | 2021-11-18 09:24 | Urology Progress Note ---
Date of Service November 18, 2021 Assessment & Plan (1) BPH loc w urin obs/LUTS: Plan: s/p TURP - cbi clamped this AM - if it remains clear, VT later today --> d/c home - check Cr this AM Admission and Anticipated Discharge Date Admission Date: November 16, 2021 Subjective no issues overnight urine clear on very slow CBI this am - clamped now Results & Data ([facility]) Vital Signs (Past 12 Hours) Vital Signs Temp Pulse Resp BP Pulse Ox 11/18/21 07:12 36.5 C 66 18 147/69 H 94 11/17/21 22:43 36.7 C 80 18 122/71 93 PG Care Time/CCT Total # of Minutes Spent Total Time Spent with Patient: Total time spent is greater than 50% in coordination of care (as documented) at patient's floor/unit and/or counseling patient: Coding Level of Care Code None Diagnoses BPH loc w urin obs/LUTS N40.1
[2021-11-18 09:27] LABS: BUN Creatinine Ratio 26.5 (10-20); Calcium 8.5 mg/dl (8.5-10.1); Creatinine Clr Calc Pharmacy 32.1 ml/min; Est GFR (African American) 50.4 ml/min; Est GFR (Non-African American) 43.5 ml/min; Potassium 4.4 mmol/L (3.5-5.1)
[2021-11-18] MEDS ORDERED: INSULIN GLARGINE SOLOSTAR 100 UNITS/ML 3 ML PEN SC SCH (12:00)
--- NOTE | 2021-11-19 14:44 | Discharge Summary ---
Date of Service November 18, 2021 Admission HPI Per Admitting Provider 76yo M with an enlarged prostate and prior urinary retention who presented for TURP procedure Admission Exam Per Admitting Provider Constitutional well developed and well nourished; no acute distress and not ill appearing Eyes normal visual campbell by confrontation ENMT Ears: no hearing impairment Nose: no external nose abnormality Neck normal visual inspection and trachea midline; no midline deformity Respiratory normal respiratory effort; no respiratory distress and no labored breathing Chest (Breasts) Chest: normal inspection of chest Musculoskeletal Head/Neck/Chest: + head abnormal to inspection, normocephalic and head atraumatic Skin no rashes Trauma: no evidence of skin trauma Neurologic awake; not confused and not obtunded Speech / Cognition: normal speech Motor/Sensory: no tremor Psychiatric Orientation: alert and oriented x 3 Principal Diagnosis Benign Prostate Hyperplasia with Urinary Obstruction/Lower Urinary Tract Symptoms Discharge Exam Constitutional no acute distress Respiratory normal respiratory effort; no respiratory distress and no labored breathing Cardiovascular Extremities: no calf tenderness Gastrointestinal (Abdomen) Inspection/Auscultation: abdomen normal to inspection Skin Warm and dry Neurologic moves all extremities and awake Psychiatric A+Ox3, euthymic affect Discharge Data Allergies Allergy/AdvReac Type Severity Reaction Status Date / Time sirolimus Allergy Mild Itch Verified 11/16/21 10:21 duloxetine [From Cymbalta] AdvReac Mild Hypertensio Verified 11/16/21 10:21 n Influenza Virus Vaccines AdvReac Mild Nausea Verified 11/16/21 10:21 Procedures Performed Operation Date: 11/16/21 09:50 Actual Procedures p Transurethral Resection of the Prostate - Tom Adams MD Hospital Course (1) BPH loc w urin obs/LUTS: 76yo M admitted postoperatively s/p TURP procedure - Pt tolerated procedure very well. - No acute issues postoperatively. - Remained on slow CBI postop day #1 - Urine remained clear. - CBI clamped postop day #2 - Urine remained light pink in color off CBI. - Osman catheter removed for void trial POD #2. - Patient was able to spontaneously void following catheter removal. - Discharged home in stable condition postop day #2 Total Time Total Time Spent Total Time Spent (In Minutes): 15 Discharge Plan Discharge Items Patient Disposition: Home - Self-Care Reason For Visit: BPH Discharge Diagnosis: BPH Activity: Per Instructions section Non-emergency contact: Surgeon and Urologist Call non-emergency contact if: you have any medication questions, your pain is not controlled, your pain is worsening and you have a fever Follow-up/Referrals: Tom Adams MD [Physician] - 03/09/22 9:45 am Alena Lang MD [Primary Care Provider] - Diet: Regular Addtl Attending Provider Instructions: Please take all medications as prescribed and keep all follow-ups as scheduled. Please call our office at [phone] with any questions, concerns or need to reschedule appointments for any reason. We are happy to assist you. Please continue your finasteride for another 2 months. Tips for your recovery at home: Dont be alarmed by brownish or reddish blood or clots in your urine. This is a result of the procedure. This may occur off and on for weeks to months after the procedure but should continue to improve. Drink plenty of fluids during the day (enough to keep your urine very light colored). This will help keep a healthy flow of urine. Avoid constipation. Please use a stool softener (Colace) as needed. When to call [facility] at [phone]: Your urine contains heavy blood clots or you are unable to urinate. You are constantly leaking urine. Fever of 101F or higher, chills, nausea, or vomiting. Your pain is not relieved with medication. Pending Studies at Discharge: Yes Stand-Alone Forms: My [facility] [employer], Smoking Cessation Medications and DC Order Prescriptions: Continued (DME) ReliOn Prime Test Strips Strip See Rx Instructions .Route Qty: 300 RF: 3 insulin NPH isoph U-100 human 100 unit/mL (3 mL) insulin pen 10 unit subcut QAM Qty: 15 RF: 5 lysine 500 mg tablet 500 mg PO QAM RF: 0 metoprolol succinate [Toprol XL] 25 mg tablet extended release 24 hr 12.5 mg PO HS RF: 0 Avastin 25 mg/mL solution See Rx Instructions intravitreal .COMPLEX Qty: 4 RF: 0 finasteride 5 mg tablet 5 mg PO QAM Qty: 90 RF: 3 tamsulosin 0.4 mg capsule 0.4 mg PO QAM RF: 0 acetaminophen [Tylenol Extra Strength] 500 mg Tablet 500 mg PO QID PRN (Reason: Pain) RF: 0 turmeric root extract 500 mg Capsule 500 mg PO QAM RF: 0 levothyroxine 125 mcg tablet 125 mcg PO QAM RF: 0 cephalexin 500 mg Capsule 2,000 mg PO UD PRN (Reason: Prior to Dental Procedures) RF: 0 amlodipine [Norvasc] 5 mg tablet 5 mg PO HS RF: 0 amitriptyline 10 mg tablet 10 mg PO HS Qty: 30 RF: 0 Discontinued fluconazole 100 mg tablet 100 mg PO DAILY 5 Days Qty: 5 RF: 0 Discharge Orders: Discharge Order (Routine); Ordered 11/18/21 Ordered By: Lavinia Cortes/Other Patient Handouts: Managing Type 2 Diabetes, Understanding Carbohydrates, TURP Home Recovery, Managing Diabetes: The A1C Test, Understanding Type 2 Diabetes Admission Data Admit Date/Time: 11/16/21 14:46 Attending Provider: Tom Adams Admit Provider: Tom Adams Primary Care Provider: Alena Lang Other Interventions: Discharge Summary Assessment (RN) Last Done: 11/18/21 15:26 Coding Level of Care Code D/C DAY MANAGEMENT <30 MINS Diagnoses BPH loc w urin obs/LUTS N40.1
== END 2021-11-18 16:30 | disposition home or self-care (01) ==
LOC: ASU 09:51 → 3W 09:51

== ENCOUNTER 2022-05-13 12:31 | Observation (INO) ==
[2022-05-13 13:54] LABS: Hematocrit (blood only) 38.7 % (40.1-51.0); Mean Corpuscular Hemoglobin 30.3 pg (25.0-34.0); Mean Corpuscular Hgb Conc 33.6 g/dL (32.0-36.0); Mean Corpuscular Volume 90.2 fL (80.0-100.0); Mean Platelet Volume 11.3 fL (9.4-12.4); Platelet Count 113 K/uL (130-400); RDW Standard Deviation 49.7 fL (36.4-46.3); Red Blood Count 4.29 M/uL (4.63-6.08); White Blood Count 9.53 K/ul (4.8-10.8)
--- NOTE | 2022-05-13 13:58 | XRay Report ---
XR chest 1V portable CLINICAL HISTORY: Sepsis TECHNIQUE: Single frontal radiograph of the chest was obtained. Comparison: Comparison is made to chest radiograph 11/08/2021 FINDINGS: Median sternotomy wires are unchanged. Aortic valvular prosthesis is noted. The cardiomediastinal dwayne houette is normal. Reticular interstitial opacities are seen. There is blunting of the costophrenic a ngle on the left. IMPRESSION: No acute abnormalities and in particular no evidence of pneumonia. There is blunting of the left cost ophrenic angle which may be due to scarring versus trace effusion. ACT 112: Negative or not required by law. Electronically signed by: Mayank Deshpande M.D. 05/13/2022 1:57 PM
[2022-05-13 13:59] LABS: Partial Thromboplastin Ratio 0.9; Partial Thromboplastin Time 23.5 Seconds (21.0-31.0); Prothrombin Time 10.9 Seconds (9.0-12.0)
[2022-05-13 14:07] LABS: Basophils # (auto) 0.05 K/uL (0-0.2); Basophils % (auto) 0.5 %; Eosinophils # (auto) 0.15 K/uL (0-0.50); Eosinophils % (auto) 1.6 %; Immature Granulocytes # (auto) 0.07 K/uL (0.00-0.02); Immature Granulocytes % (auto) 0.7 %; Lymphocytes # (auto) 2.63 K/uL (1.2-3.4); Lymphocytes % (auto) 27.6 %; Monocytes # (auto) 0.79 K/uL (0.24-0.82); Monocytes % (auto) 8.3 %; Neutrophils # (auto) 5.84 K/uL (1.4-6.5); Neutrophils % (auto) 61.3 %; Polychromasia 1+
[2022-05-13 14:19] LABS: Albumin Level 4.4 gm/dl (3.4-5.0); BUN Creatinine Ratio 14.3 (10-20); Bilirubin,Total 0.8 mg/dl (0.2-1.0); Calcium 9.2 mg/dl (8.5-10.1); Est GFR (African American) 60.6 ml/min; Est GFR (Non-African American) 52.3 ml/min; Globulin 2.2 gm/dl (2.5-4.0); Magnesium 2.3 mg/dl (1.7-2.4); Potassium 3.8 mmol/L (3.5-5.1); Total Protein 6.6 gm/dl (6.0-8.3)
--- NOTE | 2022-05-13 16:24 | Emergency Department Note ---
Impression & Plan Seizure-like activity, UTI (urinary tract infection), Elevated troponin I level, Abnormal ECG ED Provider Note INFORMANT: Patient ED PROVIDER(S): Seth Carlos MD CHIEF COMPLAINT: Seizure PLAN: Disposition: Admitted Condition: Good Outpatient prescription management: none Referral: None MEDICAL DECISION MAKING: Patient presented because of seizure-like activity and concerns for infection. Work-up initiated. The patient did have an abnormal ECG. His troponin was elevated. His CBC and chemistry panel were unremarkable. The patient did have findings concerning for urinalysis. Patient does not appear to be septic. He was empirically treated with Rocephin. Chest x-ray, head CT and CT scan of the abdomen pelvis did not reveal any acute pathology. [facility] Patient was evaluated in the ER admitted for further management. Triage Nursing notes reviewed and agree them. Vital Signs: reviewed and remarkable for no significant abnormalities Differential diagnosis: Infection, dehydration, metabolic abnormality, hypo/hyperglycemia, electrolyte disturbance, anemia, hypoxia, cardiac sources, intracerebral event, toxicologic, neurologic, as well as other pathologies. Diagnostics interpreted by me: EC Lead ECG performed and revealed Normal sinus rhythm at 73, normal [place], QRS normal. No elevation or depression. Lateral T wave inversion present. When compared to prior the T wave version is new. PVCs present. Cardiac Monitoring: Cardiac monitoring ordered by me: The patient was placed on continuous cardiac monitoring and observed. It revealed a normal sinus rhythm at 62 beats per minute without ectopy or evidence of dysrhythmia. Imaging studies: Chest x-ray. Findings: A chest x-ray was performed and revealed no pneumothorax, effusion, infiltrate, pulmonary edema, free air under the diaphragm, or wide mediastinum. HPI: The patient is a 76 year old male who presents to the Emergency Room with complaints of a seizure like episode. This occurred last night while sleeping and is described as last about 10-20 seconds. He was confused for a few minutes afterwards. He has had this 5 times before. He was on keppra but that was stopped. Previous episodes were attributed to infections. The patient also notes the following associated symptoms, left flank and abdominal pain for 3-4 years. The patient has taken no medication for relieving factors. Current flank pain is rated as 7/10. Flank pain hasn't changed in 3 years and prior work ups negative. Today there are concerns about an infection causing another episode. Pt denies headache, fevers, chills, diaphoresis, visual changes, neck pain, chest pain, breathing difficulties, nausea, vomiting, R abdominal pain, midline R back pain, melena, hematochezia, urinary symptoms, numbness, weakness, lymphadenopathy, rash, or other complaints. ROS: See above HPI for pertinent positives & negatives. A total of 10 systems reviewed and were otherwise negative. PAST MEDICAL HISTORY:See Below , CVA, DM PAST SURGICAL HISTORY:See Below, back surgery FAMILY HISTORY:See Below SOCIAL HISTORY:See Below, HOME MEDICATIONS:See Below ALLERGIES:See Below VITALS:See Below PHYSICAL EXAMINATION: GENERAL: Awake, alert, well-appearing, in no distress HENT: Normocephalic, atraumatic. Oropharynx unremarkable. EYES: Normal conjunctiva. Sclera non-icteric. NECK: Inspection normal. Non-tender. Supple. No nuchal rigidity. FROM. No masses. RESPIRATORY: Clear to auscultation. No wheezes. No rales. Normal respiratory effort. CARDIAC: Normal rate. Normal rhythm. No murmurs. No rubs. Extremities warm and well perfused. Pulses equal. No JVD. GI: Soft, non-distended. No tenderness to palpation. No rebound or guarding. No masses. RECTAL: Deferred. MUSCULOSKELETAL: Atraumatic. Chest examination reveals no tenderness. The back is symmetrical on inspection without obvious abnormality. There is no CVA tenderness to palpation. No joint edema. LOWER EXTREMITIES: Calves are equal size bilaterally and non-tender. No edema. No discoloration. NEURO: Normal sensorium. No sensory or motor deficits noted. SKIN: No rash or jaundice noted. 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 Anemia of chronic disease Hgb 11-13 over past 6 months Aortic valve disease H/o aortic stenosis s/p prosthetic valve replacement (2012) CAD (coronary artery disease) diffuse non-obstructive on 2012 cath per [facility] cardio records Chronic renal disease, stage 3, moderately decreased glomerular filtration rate (GFR) between 30-59 mL/min/1.73 square meter COVID-19 06/2020 Diabetes type 2, controlled IDDM Heart failure chronic right-sided HF per S records, EF 55-59% History of blood transfusion multiple during chemo History of pneumonia 06/2021 History of stroke 2018 ([facility]) > transferred to [place], testing showed endocarditis etiology Residual effects: MCI per record, Slowed speech, slight occasional right sided mouth droop, right side weakness Hypothyroidism IBS (irritable bowel syndrome) Kidney stones Parotid tumor 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 No postop issues per anesthesia progress note. History of back surgery h/o osteomyelitis/discitis s/p lumbar laminectomy History of colonoscopy History of cystoscopy 2018 History of surgery PAROTID X2 History of surgery PEG TUBE AND SINCE REMOVED History of vascular access device INSERTION AND REMOVAL Family History Father , age 85 No problems noted. Mother , age 79 No problems noted. 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 How many Children do You have: 3 Feels Safe at Home: Yes Assistive Devices: None Allergies Allergies Allergy/AdvReac Type Severity Reaction Status Date / Time sirolimus Allergy Mild Itch Verified 03/09/22 09:50 duloxetine [From Cymbalta] AdvReac Mild Hypertensio Verified 03/09/22 09:50 n Influenza Virus Vaccines AdvReac Mild Nausea Verified 03/09/22 09:50 Home Meds Home Medications Medication Instructions Recorded Confirmed acetaminophen 500 mg tablet 500 mg PO QID PRN Pain 07/10/18 05/13/22 (Tylenol Extra Strength) lysine 500 mg tablet 500 mg PO QAM 11/25/19 05/13/22 turmeric root extract 500 mg 500 mg PO QAM 07/29/20 05/13/22 capsule metoprolol succinate 25 mg 12.5 mg PO HS 08/17/20 05/13/22 tablet,extended release 24 hr (Toprol XL) amlodipine 5 mg tablet (Norvasc) 5 mg PO HS 06/03/21 05/13/22 insulin glargine 100 unit/mL (3 8 unit subcut HS 05/13/22 05/13/22 mL) subcutaneous pen (Lantus Solostar U-100 Insulin) Previous Rx's Medication Instructions Recorded bevacizumab 25 mg/mL intravenous See Rx Instructions intravitreal 08/23/21 solution (Avastin) .COMPLEX #4 mL levothyroxine 125 mcg tablet 125 mcg PO QAM #30 tabs 04/06/22 cefdinir 300 mg capsule 300 mg PO BID 5 days #10 caps 05/14/22 divalproex 500 mg tablet,extended 500 mg PO DAILY #30 tabs 05/14/22 release 24 hr Results & Data (ED) Vital Signs Vital Signs - 24 hr 05/13/22 16:20 05/13/22 16:20 05/13/22 17:17 Pulse Rate [Right Finger] Respiratory Rate Respiratory Effort / Characteristics Respiratory Depth Blood Pressure [Right Arm] 178/67 H Blood Pressure Mean [Right Arm] 104 Blood Pressure Position [Right Arm] Pulse Oximetry Oxygen Delivery Method Room Air Room Air 05/13/22 18:35 05/13/22 20:20 Pulse Rate [Right Finger] 68 65 Respiratory Rate 18 17 Respiratory Effort / Characteristics Non-Labored Spontaneous Respiratory Depth Normal Blood Pressure [Right Arm] 156/76 H 155/67 H Blood Pressure Mean [Right Arm] 102 96 Blood Pressure Position [Right Arm] Sitting Pulse Oximetry 95 92 Oxygen Delivery Method Room Air Laboratory Data Result diagrams: 05/14/22 05:25 05/14/22 05:25 Lab Results 12/09/22 12/09/22 12/09/22 Range/Units 13:30 13:30 13:30 WBC 9.53 (4.8-10.8) K/ul RBC 4.29 L (4.63-6.08) M/uL Hgb 13.0 L (14.0-18.0) g/dl Hct 38.7 L (40.1-51.0) % MCV 90.2 (80.0-100.0) fL MCH 30.3 (25.0-34.0) pg MCHC 33.6 (32.0-36.0) g/dL RDW Std Deviation 49.7 H (36.4-46.3) fL RDW Coeff of Paul 15.0 H (11.5-14.5) % Plt Count 113 L (130-400) K/uL MPV 11.3 (9.4-12.4) fL Immature Gran % (Auto) 0.7 % Neut % (Auto) 61.3 % Lymph % (Auto) 27.6 % [place] % (Auto) 8.3 % Eos % (Auto) 1.6 % Baso % (Auto) 0.5 % Neut # (Auto) 5.84 (1.4-6.5) K/uL Lymph # (Auto) 2.63 (1.2-3.4) K/uL [place] # (Auto) 0.79 (0.24-0.82) K/uL Eos # (Auto) 0.15 (0-0.50) K/uL Baso # (Auto) 0.05 (0-0.2) K/uL Immature Gran # (Auto) 0.07 H (0.00-0.02) K/uL Polychromasia 1+ ESR (0-20) mm/hr PT 10.9 (9.0-12.0) Seconds INR 1.0 (0.9-1.1) APTT 23.5 (21.0-31.0) Seconds PTT Ratio 0.9 Sodium 140 (136-145) mmol/L Potassium 3.8 (3.5-5.1) mmol/L Chloride 108 H (98-107) mmol/L Carbon Dioxide 28 (21-32) mmol/L Anion Gap 4 (3-11) BUN 19 (6-23) mg/dl Creatinine 1.33 (0.6-1.4) mg/dl Est Cr Clr Drug Dosing 36.0 ml/min Est GFR ( Amer) 60.6 ml/min Est GFR (Non-Af Amer) 52.3 ml/min BUN/Creatinine Ratio 14.3 (10-20) Glucose 98 (70-99(Fasting)) mg/dl Calcium 9.2 (8.5-10.1) mg/dl Magnesium 2.3 (1.7-2.4) mg/dl Total Bilirubin 0.8 (0.2-1.0) mg/dl AST 23 (13-39) U/L ALT 16 (7-52) U/L Alkaline Phosphatase 62 (34-104) U/L Troponin I High Sens (0-20) pg/ml C-Reactive Protein (0-0.5) mg/dl Total Protein 6.6 (6.0-8.3) gm/dl Albumin 4.4 (3.4-5.0) gm/dl Globulin 2.2 L (2.5-4.0) gm/dl Albumin/Globulin Ratio 2.0 (0.9-2) Procalcitonin (0-0.5) ng/ml Urine Color Urine Appearance (Clear) Urine pH (4.5-7.5) Ur Specific [place] (1.000-1.030) Urine Protein (Negative) Urine Glucose (UA) (Negative) Urine Ketones (Negative) Urine Blood (Negative) Urine Nitrite (Negative) Urine Bilirubin (Negative) Urine Urobilinogen (Negative) Ur Leukocyte Esterase (Negative) Urine WBC (Auto) (0-5) /hpf Urine RBC (Auto) (0-4) /hpf U Hyaline Cast (Auto) (0-5) /lpf U Epithel Cells (Auto) (0-5) /lpf Urine Bacteria (Auto) (Negative) Adenovirus (PCR) (NotDetected) B. pertussis DNA (PCR) (NotDetected) B.parapertussis DNA PCR (NotDetected) C. pneumoniae DNA (PCR) (NotDetected) Coronavirus OC43 (PCR) (NotDetected) Coronavirus HKU1 (PCR) (NotDetected) Coronavirus 229E (PCR) (NotDetected) SARS-CoV-2 (PCR) (NotDetected) Coronavirus NL63 (PCR) (NotDetected) Human Metapneumovir PCR (NotDetected) Influenza Type A (PCR) (NotDetected) Influenza Type B (PCR) (NotDetected) M. pneumoniae (PCR) (NotDetected) Parainfluenza 1 (PCR) (NotDetected) Parainfluenza 2 (PCR) (NotDetected) Parainfluenza 3 (PCR) (NotDetected) Parainfluenza 4 (PCR) (NotDetected) RSV (PCR) (NotDetected) Entero/Rhino (PCR) (NotDetected) 05/13/22 05/13/22 05/13/22 Range/Units 13:30 13:30 13:30 WBC (4.8-10.8) K/ul RBC (4.63-6.08) M/uL Hgb (14.0-18.0) g/dl Hct (40.1-51.0) % MCV (80.0-100.0) fL MCH (25.0-34.0) pg MCHC (32.0-36.0) g/dL RDW Std Deviation (36.4-46.3) fL RDW Coeff of Paul (11.5-14.5) % Plt Count (130-400) K/uL MPV (9.4-12.4) fL Immature Gran % (Auto) % Neut % (Auto) % Lymph % (Auto) % [place] % (Auto) % Eos % (Auto) % Baso % (Auto) % Neut # (Auto) (1.4-6.5) K/uL Lymph # (Auto) (1.2-3.4) K/uL [place] # (Auto) (0.24-0.82) K/uL Eos # (Auto) (0-0.50) K/uL Baso # (Auto) (0-0.2) K/uL Immature Gran # (Auto) (0.00-0.02) K/uL Polychromasia ESR 3 (0-20) mm/hr PT (9.0-12.0) Seconds INR (0.9-1.1) APTT (21.0-31.0) Seconds PTT Ratio Sodium (136-145) mmol/L Potassium (3.5-5.1) mmol/L Chloride (98-107) mmol/L Carbon Dioxide (21-32) mmol/L Anion Gap (3-11) BUN (6-23) mg/dl Creatinine (0.6-1.4) mg/dl Est Cr Clr Drug Dosing ml/min Est GFR ( Amer) ml/min Est GFR (Non-Af Amer) ml/min BUN/Creatinine Ratio (10-20) Glucose (70-99(Fasting)) mg/dl Calcium (8.5-10.1) mg/dl Magnesium (1.7-2.4) mg/dl Total Bilirubin (0.2-1.0) mg/dl AST (13-39) U/L ALT (7-52) U/L Alkaline Phosphatase (34-104) U/L Troponin I High Sens (0-20) pg/ml C-Reactive Protein < 0.50 (0-0.5) mg/dl Total Protein (6.0-8.3) gm/dl Albumin (3.4-5.0) gm/dl Globulin (2.5-4.0) gm/dl Albumin/Globulin Ratio (0.9-2) Procalcitonin < 0.05 (0-0.5) ng/ml Urine Color Urine Appearance (Clear) Urine pH (4.5-7.5) Ur Specific [place] (1.000-1.030) Urine Protein (Negative) Urine Glucose (UA) (Negative) Urine Ketones (Negative) Urine Blood (Negative) Urine Nitrite (Negative) Urine Bilirubin (Negative) Urine Urobilinogen (Negative) Ur Leukocyte Esterase (Negative) Urine WBC (Auto) (0-5) /hpf Urine RBC (Auto) (0-4) /hpf U Hyaline Cast (Auto) (0-5) /lpf U Epithel Cells (Auto) (0-5) /lpf Urine Bacteria (Auto) (Negative) Adenovirus (PCR) (NotDetected) B. pertussis DNA (PCR) (NotDetected) B.parapertussis DNA PCR (NotDetected) C. pneumoniae DNA (PCR) (NotDetected) Coronavirus OC43 (PCR) (NotDetected) Coronavirus HKU1 (PCR) (NotDetected) Coronavirus 229E (PCR) (NotDetected) SARS-CoV-2 (PCR) (NotDetected) Coronavirus NL63 (PCR) (NotDetected) Human Metapneumovir PCR (NotDetected) Influenza Type A (PCR) (NotDetected) Influenza Type B (PCR) (NotDetected) M. pneumoniae (PCR) (NotDetected) Parainfluenza 1 (PCR) (NotDetected) Parainfluenza 2 (PCR) (NotDetected) Parainfluenza 3 (PCR) (NotDetected) Parainfluenza 4 (PCR) (NotDetected) RSV (PCR) (NotDetected) Entero/Rhino (PCR) (NotDetected) 05/13/22 05/13/22 05/13/22 Range/Units 13:30 16:45 17:15 WBC (4.8-10.8) K/ul RBC (4.63-6.08) M/uL Hgb (14.0-18.0) g/dl Hct (40.1-51.0) % MCV (80.0-100.0) fL MCH (25.0-34.0) pg MCHC (32.0-36.0) g/dL RDW Std Deviation (36.4-46.3) fL RDW Coeff of Paul (11.5-14.5) % Plt Count (130-400) K/uL MPV (9.4-12.4) fL Immature Gran % (Auto) % Neut % (Auto) % Lymph % (Auto) % [place] % (Auto) % Eos % (Auto) % Baso % (Auto) % Neut # (Auto) (1.4-6.5) K/uL Lymph # (Auto) (1.2-3.4) K/uL [place] # (Auto) (0.24-0.82) K/uL Eos # (Auto) (0-0.50) K/uL Baso # (Auto) (0-0.2) K/uL Immature Gran # (Auto) (0.00-0.02) K/uL Polychromasia ESR (0-20) mm/hr PT (9.0-12.0) Seconds INR (0.9-1.1) APTT (21.0-31.0) Seconds PTT Ratio Sodium (136-145) mmol/L Potassium (3.5-5.1) mmol/L Chloride (98-107) mmol/L Carbon Dioxide (21-32) mmol/L Anion Gap (3-11) BUN (6-23) mg/dl Creatinine (0.6-1.4) mg/dl Est Cr Clr Drug Dosing ml/min Est GFR ( Amer) ml/min Est GFR (Non-Af Amer) ml/min BUN/Creatinine Ratio (10-20) Glucose (70-99(Fasting)) mg/dl Calcium (8.5-10.1) mg/dl Magnesium (1.7-2.4) mg/dl Total Bilirubin (0.2-1.0) mg/dl AST (13-39) U/L ALT (7-52) U/L Alkaline Phosphatase (34-104) U/L Troponin I High Sens 39.2 H (0-20) pg/ml C-Reactive Protein (0-0.5) mg/dl Total Protein (6.0-8.3) gm/dl Albumin (3.4-5.0) gm/dl Globulin (2.5-4.0) gm/dl Albumin/Globulin Ratio (0.9-2) Procalcitonin (0-0.5) ng/ml Urine Color Yellow Urine Appearance Clear (Clear) Urine pH 5.0 (4.5-7.5) Ur Specific [place] 1.022 (1.000-1.030) Urine Protein 3+ H (Negative) Urine Glucose (UA) Negative (Negative) Urine Ketones Trace H (Negative) Urine Blood 2+ H (Negative) Urine Nitrite Negative (Negative) Urine Bilirubin Negative (Negative) Urine Urobilinogen Negative (Negative) Ur Leukocyte Esterase 1+ H (Negative) Urine WBC (Auto) >30 H (0-5) /hpf Urine RBC (Auto) 10-30 H (0-4) /hpf U Hyaline Cast (Auto) 5-10 H (0-5) /lpf U Epithel Cells (Auto) 20-30 H (0-5) /lpf Urine Bacteria (Auto) Negative (Negative) Adenovirus (PCR) Not Detected (NotDetected) B. pertussis DNA (PCR) Not Detected (NotDetected) B.parapertussis DNA PCR Not Detected (NotDetected) C. pneumoniae DNA (PCR) Not Detected (NotDetected) Coronavirus OC43 (PCR) Not Detected (NotDetected) Coronavirus HKU1 (PCR) Not Detected (NotDetected) Coronavirus 229E (PCR) Not Detected (NotDetected) SARS-CoV-2 (PCR) Not Detected (NotDetected) Coronavirus NL63 (PCR) Not Detected (NotDetected) Human Metapneumovir PCR Not Detected (NotDetected) Influenza Type A (PCR) Not Detected (NotDetected) Influenza Type B (PCR) Not Detected (NotDetected) M. pneumoniae (PCR) Not Detected (NotDetected) Parainfluenza 1 (PCR) Not Detected (NotDetected) Parainfluenza 2 (PCR) Not Detected (NotDetected) Parainfluenza 3 (PCR) Not Detected (NotDetected) Parainfluenza 4 (PCR) Not Detected (NotDetected) RSV (PCR) Not Detected (NotDetected) Entero/Rhino (PCR) Not Detected (NotDetected) Administered Medications Discontinued Medications Amlodipine Besylate (Amlodipine Besylate 5 Mg Tab) 5 mg PO HS KASSANDRA Stop: 06/12/22 22:53 Last Admin: 05/13/22 23:40 Dose: 5 mg Documented By: JESUSITA Divalproex Sodium (Divalproex Extended Release 500 Mg Tab) 500 mg PO DAILY KASSANDRA Stop: 06/13/22 10:29 Last Admin: 05/14/22 10:55 Dose: 500 mg Documented By: GABI Enoxaparin Sodium (Enoxaparin Inj 40 Mg/0.4 Ml Syr) 40 mg SQ PM KASSANDRA Stop: 06/12/22 23:29 Last Admin: 05/13/22 23:40 Dose: 40 mg Documented By: JESUSITA Sodium Chloride (Nss 1000ml) 500 mls @ 999 mls/hr IV .Q31M ONE Stop: 05/13/22 16:55 Last Infusion: 05/13/22 17:56 Dose: 0 mls/hr Documented By: Admin: 05/13/22 17:18 Dose: 999 mls/hr Documented By: JPG Ceftriaxone Sodium (Rocephin) 2,000 mg in 70 mls @ 140 mls/hr IV NOW STA Stop: 05/13/22 18:17 Last Infusion: 05/13/22 19:14 Dose: 0 mls/hr Documented By: Admin: 05/13/22 18:28 Dose: 140 mls/hr Documented By: SHELBI Insulin Aspart (Insulin Aspart Per Unit) 0 units SC [facility] Stop: 06/12/22 23:29 Last Admin: 05/14/22 08:20 Dose: Not Given Documented By: Admin: 05/13/22 23:47 Dose: Not Given Documented By: JESUSITA Insulin Aspart (Insulin Aspart Per Unit) 3 units SC NOW STA Stop: 05/13/22 23:32 Last Admin: 05/13/22 23:38 Dose: 3 units Documented By: JESUSITA Co-signed By: ESAU Insulin Glargine (Lantus Per Unit Charge) 5 units SQ [facility] Stop: 06/12/22 23:29 Last Admin: 05/13/22 23:38 Dose: 5 units Documented By: JESUSITA Co-signed By: ESAU Levothyroxine Sodium (Levothyroxine Sodium 125 Mcg Tablet) 125 [facility]cg [facility] Stop: 06/13/22 06:29 Last Admin: 05/14/22 05:55 Dose: 125 mcg Documented By: JESUSITA Metoprolol Succinate (Metoprolol Succ 25mg Ext Rel Tab) 12.5 mg PO [facility] Stop: 06/12/22 22:53 Last Admin: 05/13/22 23:40 Dose: 12.5 mg Documented By: JESUSITA Potassium Chloride (Potassium Chloride Crtab 20 Meq Tabcr) 40 meq PO NOW STA Stop: 05/14/22 07:52 Last Admin: 05/14/22 08:21 Dose: 40 meq Documented By: KTS Potassium Chloride (Potassium Chloride Crtab 20 Meq Tabcr) 40 meq PO ONE ONE Stop: 05/14/22 10:01 Last Admin: 05/14/22 10:55 Dose: 40 meq Documented By: GABI Imaging Data Radiologist's Impression: Chest X-Ray 05/13/22 12:50 XR chest 1V portable CLINICAL HISTORY: Sepsis TECHNIQUE: Single frontal radiograph of the chest was obtained. Comparison: Comparison is made to chest radiograph 11/08/2021 FINDINGS: Median sternotomy wires are unchanged. Aortic valvular prosthesis is noted. The cardiomediastinal silhouette is normal. Reticular interstitial opacities are seen. There is blunting of the costophrenic angle on the left. IMPRESSION: No acute abnormalities and in particular no evidence of pneumonia. There is blunting of the left costophrenic angle which may be due to scarring versus trace effusion. ACT 112: Negative or not required by law. Electronically signed by: Mayank Deshpande M.D. 05/13/2022 1:57 PM Discharge Plan Visit Data Chief Complaint: Referred by Doctor Stated Complaint: REF BY DOCTOR ED Provider: Seth Carlos Discharge Problem: Seizure-like activity, UTI (urinary tract infection), Elevated troponin I level, Abnormal ECG Patient Disposition: Admitted As Inpatient Discharge Instructions Interventions: ED Discharge Assessment Last Done: 05/13/22 23:09
[2022-05-13] MEDS ORDERED: SODIUM CHLORIDE 0.9% 1000ML 500 ML IV ONE (16:25)
--- NOTE | 2022-05-13 16:54 | Electrocardiogram Report ---
Test Reason : Blood Pressure : / mmHG Vent. Rate : 073 BPM Atrial Rate : 073 BPM P-R Int : 158 ms QRS Dur : 086 ms QT Int : 410 ms P-R-T Axes : 056 -40 092 degrees QTc Int : 451 ms Sinus rhythm with occasional , and consecutive Premature ventricular complexes Possible Left atrial enlargement Left axis deviation Abnormal ECG When compared with ECG of 09-JUN-2021 04:24, Premature ventricular complexes are now Present T wave inversion now evident in Lateral leads Confirmed by Jose Conn ([id number]) on 05/13/2022 4:53:35 PM Referred By: Confirmed By:Jose Conn
[2022-05-13 16:56] LABS: Appearance Urine Clear (Clear); Bacteria Urine Automated Negative (Negative); Bilirubin Urine Negative (Negative); Blood Urine 2+ (Negative); Color Urine Yellow; Epithelial Cell Urine Auto 20-30 /lpf (0-5); Glucose Urine UA Negative (Negative); Ketones Urine Trace (Negative); Leukocyte Esterase Urine 1+ (Negative); Nitrite Urine Negative (Negative); Protein Urine 3+ (Negative); Specific Gravity Urine 1.022 (1.000-1.030); Urobilinogen Urine Negative (Negative); WBC Urine Automated >30 /hpf (0-5)
--- NOTE | 2022-05-13 17:06 | CT Scan Report ---
CT SCAN OF THE BRAIN WITHOUT IV CONTRAST CLINICAL HISTORY: Seizure-like episode. COMPARISON STUDY: CT of the brain dated 06/09/2021. TECHNIQUE: Unenhanced axial CT scan of the brain is performed from the vertex to the skull base. A do se lowering technique was utilized adhering to the principles of ALARA. CT DOSE: 537.48 mGy.cm FINDINGS: Brain parenchyma: Foci of left frontal and left occipital encephalomalacia are unchanged and consiste nt with remote insults. There is age-related involutional change noting moderate subcortical and saleem ventricular microangiopathic disease. There is no hemorrhage, mass effect, or evidence of acute patrick torial ischemia by CT criteria. Small chronic lacunar infarcts are noted in the basal ganglia and cer ebellum. Ratliff-white matter differentiation is preserved. No extra-axial fluid collection is seen. Ventricles, sulci, cisterns: Prominent secondary to involutional change. Intracranial vasculature: There is atherosclerotic calcification of the cavernous carotid and vertebr al arteries. Calvarium: Unremarkable. Sinuses and mastoids: The visualized paranasal sinuses are clear. There is a right mastoid effusion. The left mastoid air cells are well pneumatized. Orbits: The bony orbits are grossly intact. IMPRESSION: There is no hemorrhage, mass effect, or evidence of acute territorial ischemia by CT georgina alvarado. ACT 112: Negative or not required by law. Electronically signed by: Louis Draper M.D. 05/13/2022 5:05 PM
--- NOTE | 2022-05-13 17:14 | CT Scan Report ---
CT SCAN OF THE ABDOMEN AND PELVIS WITHOUT IV CONTRAST CLINICAL HISTORY: Left flank pain. COMPARISON STUDY: Abdominal CT dated 06/09/2021. TECHNIQUE: CT scan of the abdomen and pelvis is performed from the lung bases to the proximal femora. Images are reviewed in the axial, sagittal, and coronal planes. IV contrast was not administered for this examination. A dose lowering technique was utilized adhering to the principles of ALARA. CT DOSE: 266.30 mGy.cm FINDINGS: Lung bases: The patient is status post midline sternotomy. The heart is enlarged and without pericard ial effusion. The coronary arteries densely calcified. There are trace pleural effusions, right large r than left. Scarring/atelectasis is seen at both lung bases. No airspace consolidation is identified typical for pneumonia. Liver: The unenhanced liver is normal in size, contour, and attenuation. There is no intrahepatic zhen iary ductal dilatation. Gallbladder: There are small calcified gallstones without CT evidence of acute cholecystitis. Spleen: Normal in size and attenuation. Pancreas: The unenhanced pancreas is atrophic and grossly unremarkable. Adrenal glands: Unremarkable. Kidneys: The unenhanced kidneys are atrophic and without hydronephrosis. There is a punctate nonobstr ucting right renal calculus. No left renal calculi are identified and no ureteral stone is seen. Ther e is no evidence of contour deforming renal mass lesion. Abdominal vasculature: The abdominal aorta is normal in course and caliber noting advanced atheroscle rotic calcification. Bowel: There is moderate colonic diverticulosis without CT evidence of acute diverticulitis. No bowel obstruction is seen. Mild fecal retention is present throughout the colon. The appendix is well-vis ualized and normal. Peritoneum: There is no intraperitoneal free air or abdominal ascites. There is a small fat-containin g umbilical hernia. Lymphadenopathy: None. Pelvic viscera: The prostate gland is markedly enlarged and heterogeneous noting median lobe hypertro phy. Findings suggest previous TURP. The bladder is decompressed, and the wall appears thickened/trab eculated indicating chronic outlet obstruction. Skeletal structures: The skeletal structures are osteopenic. There is moderate lumbosacral spondylosi s. No lytic or blastic lesions are seen. IMPRESSION: 1. No acute infectious or inflammatory findings are identified in the abdomen or pelvis. 2. Punctate nonobstructing right renal calculus. 3. Cardiomegaly and trace pleural effusions. 4. Colonic diverticulosis without CT evidence of acute diverticulitis. 5. Marked prostatomegaly. 6. Cholelithiasis. 7. Additional findings as above. ACT 112: Negative or not required by law. Electronically signed by: Louis Draper M.D. 05/13/2022 5:12 PM
[2022-05-13] MEDS ORDERED: cefTRIAXone SODIUM 2,000 MG/70 ML BAG IV STA (17:48)
[2022-05-13 18:21] LABS: Adenovirus PCR Not Detected (NotDetected); Bordetella parapertussis PCR Not Detected (NotDetected); Bordetella pertussis PCR Not Detected (NotDetected); Chlamydia pneumoniae PCR Not Detected (NotDetected); Coronavirus 229E PCR Not Detected (NotDetected); Coronavirus CoV-2 (COVID19)PCR Not Detected (NotDetected); Coronavirus HKU1 PCR Not Detected (NotDetected); Coronavirus NL63 PCR Not Detected (NotDetected); Coronavirus OC43PCR Not Detected (NotDetected); Human Metapneumovirus PCR Not Detected (NotDetected); Influenza A PCR Not Detected (NotDetected); Influenza B PCR Not Detected (NotDetected); Mycoplasma pneumoniae PCR Not Detected (NotDetected); Parainfluenza Virus 1 PCR Not Detected (NotDetected); Parainfluenza Virus 2 PCR Not Detected (NotDetected); Parainfluenza Virus 3 PCR Not Detected (NotDetected); Parainfluenza Virus 4 PCR Not Detected (NotDetected); Respiratory Syncytial VirusPCR Not Detected (NotDetected); Rhinovirus/Enterovirus PCR Not Detected (NotDetected)
[2022-05-13] MEDS ORDERED: ACETAMINOPHEN 325 MG TAB PO PRN (22:54)
[2022-05-13] MEDS ORDERED: LORazepam 2 MG/1 ML VIAL IV PRN (22:54)
[2022-05-13] MEDS ORDERED: amLODIPine BESYLATE 5 MG TAB PO SCH (22:54)
[2022-05-13] MEDS ORDERED: METOPROLOL SUCC 25MG EXT REL TAB PO SCH (22:54)
[2022-05-13] MEDS ORDERED: NITROGLYCERIN SL 0.4 MG/TAB TAB SL PRN (22:54)
[2022-05-13] MEDS ORDERED: LORazepam 1 MG in SYRINGE 0 ML IV PRN (23:05)
[2022-05-13] MEDS ORDERED: DEXTROSE 50% 50 ML SYRINGE IV PRN (23:15)
[2022-05-13] MEDS ORDERED: GLUCOSE 10 TAB/TUBE PO PRN (23:15)
[2022-05-13] MEDS ORDERED: GLUCOSE 40% GEL 15 GM TUBE PO PRN (23:15)
[2022-05-13] MEDS ORDERED: GLUCAGON FOR INJ 1 MG VIAL IM PRN (23:15)
[2022-05-13] MEDS ORDERED: CARBOHYDRATES FOR HYPOGLYCEMIA PO PRN (23:15)
--- NOTE | 2022-05-13 23:27 | History and Physical Report ---
DATE OF ADMISSION: 05/13/2022. CHIEF COMPLAINT: Seizure-like activity. HISTORY OF PRESENT ILLNESS: This is a 76-year-old male with past medical history significant for type 2 diabetes, hypothyroidism, hyperlipidemia, history of hypercalcemia, chronic kidney disease stage III, chronic right sided heart failure, hypertension, history of chronic diarrhea, history of calculus of gallbladder without cholecystitis, enlarged prostate, BPH, discitis,osteomyelitis, restless legs syndrome, history of complex partial seizure disorder, hemiplegia following CVA, chronic back pain without sciatica, history of acute myeloid leukemia, status post stem cell transplant, in remission, history of thrombocytopenia, status post aortic bioprosthetic valve replacement, history of kidney stones, who lives at home with his , was brought in with seizure-like activity last night. It looks like he was admitted to [facility] on 06/09/2021 with seizure like activity. He had a similar episode in 2019 accompanied with sepsis. The patient was placed on Keppra at that time, but he was having decreased appetite and dreams and the patient's 72 hours EEG did not show any seizure activity and Keppra was tapered off by neurology.Last night, the patient again had a few seconds of shaking all over the body and after that confusion for 10 minutes again had another episode of shaking at around 6:30, but it was short and not confused at that time and thinks he was shaking because of the infections. She wants to go back on Keppra if needed, because of his kidney function,though Epic notes recommended if seizure recur to consider Lamictal, Depakote or Zonegran. The patient is currently resting comfortably, hemodynamically stable, alert and oriented. Denies any headache. Vision is okay. No earache, no runny nose, no sore throat, no cough, no difficulty swallowing. No chest pain. Once in a while he gets short of breath, but currently no shortness of breath, no nausea, no vomiting. Has chronic abdominal pain. Normal bowel and bladder movements. Ambulating okay. Hemodynamically stable. ALLERGIES: SEVELAMER, CYMBALTA, INFLUENZA VACCINES. PAST MEDICAL HISTORY: As mentioned above. PAST SURGICAL HISTORY: Colonoscopy, cardiac cath, EGDs, Avastin injection in the right eye, lumbar hemilaminectomy, removal of parathyroid gland, tonsillectomy, bioprosthetic aortic valve replacement. MEDICATIONS: The patient is on Tylenol Extra Strength 500 mg p.o. q.i.d. p.r.n., amlodipine 5 mg p.o. at bedtime, Lantus 8 units subcutaneous at bedtime, levothyroxine 125 mcg p.o. a.m., niacin 500 mg p.o. a.m., metoprolol succinate 12.5 mg p.o. at bedtime, turmeric root extract 500 mg p.o. a.m. FAMILY HISTORY: Significant for brother has diabetes, thyroid disorder; mother has stroke, macular degeneration, diabetes; father had diabetes, cardiac stents placed. SOCIAL HISTORY: . No alcohol, no drug use. REVIEW OF SYSTEMS: As per HPI. Rest of the review of systems negative. PHYSICAL EXAMINATION: GENERAL: The patient is of moderate build, not in acute distress. VITAL SIGNS: Temperature 37, pulse 64, respiratory rate 17, blood pressure 150/67, oxygen 92% on room air. HEENT: Pupils equal, round and reactive to light. Oral mucosa moist. NECK: No JVD or neck masses. CARDIOVASCULAR: S1 and S2 heard. Systolic murmur in aortic area and tricuspid area heard. RESPIRATORY SYSTEM: Normal AP diameter. No accessory muscle use. No wheezing, no crackles. ABDOMEN: Soft, bowel sounds present. Mild abdominal discomfort. No guarding, no rigidity, no distention. CENTRAL NERVOUS SYSTEM: Alert and oriented. Obeys simple commands. Insight is okay. No facial droop. Speech is clear. Power 5/5 in all extremities. Coordination of movements normal. EXTREMITIES: No edema, no erythema. LABORATORY DATA: WBC 9.5, hemoglobin 13, hematocrit 38.7, platelets 113, PT 10.9, INR 1, APTT 23.5. Sodium 140, potassium 3.8, chloride 108, bicarbonate 28, BUN 19, creatinine 1.3, serum glucose 98, calcium 9.2, magnesium 2.3, total bilirubin 0.8, AST 23, ALT 16, alkaline phosphatase 62. Troponin I high sensitivity 39.2. C-reactive protein less than 0.5. Procalcitonin less than 0.05. Urinalysis: leukocyte esterase positive. Respiratory BioFire negative. IMAGING DATA: CT of the head, no acute findings. CT of abdomen and pelvis showed nonobstructing right renal calculus, cardiomegaly and trace pleural effusions. Colonic diverticulosis without CT evidence of acute diverticulitis, marked prostatomegaly, cholelithiasis, no acute findings. Chest x-ray, no acute abnormalities. EKG: Sinus rhythm with occasional PVCs, rate of 73, possible left atrial enlargement, some T-wave inversions in lateral leads. ASSESSMENT AND PLAN: This 76-year-old male presents with seizure-like activity. 1. Seizure-like activity with history of seizures in the past. Keppra was tapered off as his 72-hour EEG outpatient was unremarkable and he was getting side effects from Keppra. The patient's thinks his seizure-like activity has been possibly from infection. Neurology recommended to add Lamictal or Depakote or Zonegran if seizures recurs, but wants low dose of Keppra if needed. We will do EEG , IV Ativan p.r.n. for breakthrough seizures. Consult neurology in the a.m. for further recommendations. Closely monitor. 2. Possible urinary tract infection. Continue Rocephin. Follow the cultures. 3. Mild elevation of troponin, questionable EKG changes. The patient is asymptomatic. Follow serial cardiac enzymes, echo, and consult cardiology in the a.m. 4. Diabetes. The patient takes Lantus 8 units at home. is worried that he had 3 times of hypoglycemic episode in the hospital and her best friend's of hypoglycemia in the hospital and she is so worried about it and she is worried about carb count. So we will reduce Lantus to 5 units at bedtime and place him on insulin sliding scale with a goal of 140-180 and correction for 20 but no carb coverage and closely monitor the blood sugar levels. 5. History of cerebrovascular accident. Seems to be not on aspirin or statin. 6. History of chronic right sided heart failure. We will monitor for any volume overload. On metoprolol succinate. 7. History of hypertension: Amlodipine and metoprolol succinate. We will monitor the blood pressure. 8. History of benign prostatic hypertrophy. We will monitor for any urinary retention. 9. History of acute myeloid leukemia status post stem cell transplant, in remission. Follow up with hem/oncology. 10. Hypothyroidism. On Synthroid. 11. History of thrombocytopenia, platelets are 113. 12. Deep venous thrombosis prophylaxis. Placed on Lovenox. Follow the platelets. DISPOSITION: Closely monitor in the tele floor. The patient's wants the patient to be observed for 1 day and possible discharge in the a.m. if stable. Level 1 full code. Job ID: [id number] MTDD
[2022-05-13] MEDS ORDERED: LANTUS PER UNIT CHARGE SQ SCH (23:30)
[2022-05-13] MEDS ORDERED: ENOXAPARIN INJ 40 MG/0.4 ML SYR SQ SCH (23:30)
[2022-05-13] MEDS ORDERED: INSULIN ASPART PER UNIT SC STA (23:31)
[2022-05-13] MEDS: INSULIN ASPART PER UNIT SC SCH (23:47)
[2022-05-14] MEDS ORDERED: LEVOTHYROXINE SODIUM 125 MCG TABLET PO SCH (06:30)
[2022-05-14 06:31] LABS: Calcium 8.4 mg/dl (8.5-10.1); Est GFR (African American) 60.6 ml/min; Est GFR (Non-African American) 52.3 ml/min; Magnesium 2.1 mg/dl (1.7-2.4); Potassium 3.4 mmol/L (3.5-5.1)
[2022-05-14 06:59] LABS: Basophils # (auto) 0.05 K/uL (0-0.2); Basophils % (auto) 0.6 %; Eosinophils # (auto) 0.38 K/uL (0-0.50); Eosinophils % (auto) 4.7 %; Hematocrit (blood only) 33.2 % (40.1-51.0); Hemoglobin 11.4 g/dl (14.0-18.0); Immature Granulocytes # (auto) 0.03 K/uL (0.00-0.02); Immature Granulocytes % (auto) 0.4 %; Lymphocytes # (auto) 2.75 K/uL (1.2-3.4); Lymphocytes % (auto) 33.8 %; Mean Corpuscular Hemoglobin 30.5 pg (25.0-34.0); Mean Corpuscular Hgb Conc 34.3 g/dL (32.0-36.0); Mean Corpuscular Volume 88.8 fL (80.0-100.0); Mean Platelet Volume 11.5 fL (9.4-12.4); Monocytes # (auto) 0.82 K/uL (0.24-0.82); Monocytes % (auto) 10.1 %; Neutrophils % (auto) 50.4 %; Platelet Count 99 K/uL (130-400); Platelet Estimate Decreased (Normal); RDW Coefficient of Variation 14.9 % (11.5-14.5); RDW Standard Deviation 48.9 fL (36.4-46.3); Red Blood Count 3.74 M/uL (4.63-6.08); White Blood Count 8.13 K/ul (4.8-10.8)
[2022-05-14] MEDS ORDERED: POTASSIUM CHLORIDE CRTAB 20 MEQ TABCR PO STA (07:51)
[2022-05-14 07:55] LABS: Estimated Average Glucose 131 mg/dl; Hemoglobin A1C 6.2 % (4.5-5.6)
[2022-05-14] MEDS: INSULIN ASPART PER UNIT SC SCH (08:20)
--- NOTE | 2022-05-14 08:48 | Neurology Consultation ---
Date of Consultation May 14, 2022 Assessment & Plan (1) Seizure-like activity: (2) History of CVA (cerebrovascular accident): (3) Diabetic polyneuropathy: Plan patient has had multiple episodes of seizure activity mostly nocturnal including late May 12 well as sleep. He has been on levetiracetam starting in early 2021 this was discontinued later in the year due to side effects. Currently the patient has a normal examination with no focal signs, meningeal signs, or obvious encephalopathy. He has not had any seizure activity since admission. The etiology of the seizure activity is likely cerebral vascular in nature. No other sources have been found although, nocturnal seizures her sometimes due to dropping O2 saturation secondary to sleep apnea. There is no history of him having sleep apnea however. Earlier this year he had side effects to levetirace lazo. He does have some signs on exam consistent with a polyneuropathy which is likely secondary to diabetes. He has a history of stroke in the past The patient has had 2 routine EEGs (at least ) following nocturnal seizure events and have been normal each time. MRI in the past has been largely unremarkable except for old small vessel ischemic disease. I tried to contact the patient's but was unsuccessful. Recommendations: 1. I would just initiate low-dose of an anticonvulsant. since he has side effects in the past to levetiracetam, I would consider low-dose Depakote, 500 mg ER 24 hour release formulation, once each evening 2. If the patient's insists on low-dose levetiracetam then consider 250 mg twice daily. 3. I do not see a need to do an EEG at this time. I am not certain that a repeat MRI is necessary either. 4. Follow up with Neurology, [facility] (who follow him in clinic). Overall, I spent a total of 60 minutes with this case including review of records, review of MRI and CT films, direct evaluation the patient at bedside, and discussion of the case with the patient and RN at bedside and Dr. Churchill, including differential diagnosis and treatment options. History of Present Illness Reason for Consultation: Is a 76-year-old, who I was asked to see at the request of Dr. Jordan Requesting Physician: Dr. Jordan Attending Physician: Garo Churchill MD History of Present Illness this patient has history multiple seizure-like events. Back in 2019 there were seizure activity accompanied sepsis. In June 2021 patient had an episode of generalized shaking and jerking for 20 seconds at night and was admitted to the hospital. An EEG was unremarkable. An MRI of the brain showed no acute issues. He saw Dr. Figueroa and levetiracetam was initiated at 500 mg twice daily. There was concerns that amitriptyline was possibly related to the seizure. He was followed up by Dr. Figueroa in October of 2021. His levetiracetam was decreased to 250 mg twice a day and then ultimately discontinued. He was having side effects of medication including unusual dreaming. He has been off anticonvulsants for at least several months. Apparently the patient had an episode late May 12, while asleep, where he had 10-20 seconds of generalized shaking followed by some confusion for some time thereafter. The patient does not really remember these events. He arrived at the emergency room at 12:43 p.m. on May 13 with a temperature of 37.0, pulse 71 regular, respiratory rate 18, blood pressure 153/66, and O2 saturation 96%. His neurologic examination was unremarkable and he was not having any additional seizure activity since his event at night. CBC and Chem profile were. Chest x-ray was unremarkable. His CT scan of the head showed no acute changes. Patient has had no seizure activity overnight and has been in normal sinus rhythm in the 60s. This morning, CBC shows anemia and Chem profile shows mildly reduced potassium. Hemoglobin A1c was 6.2. Calcium was 8.4. Troponin was elevated at 29. screening for infectious agents was unremarkable. The patient has no complaint of pain or headache. He has no dizziness or lightheadedness. There is no weakness or numbness in the or legs. Patient has been given IV Rocephin but he has had no white count or fever. Allergies Allergy/AdvReac Type Severity Reaction Status Date / Time sirolimus Allergy Mild Itch Verified 03/09/22 09:50 duloxetine [From Cymbalta] AdvReac Mild Hypertensio Verified 03/09/22 09:50 n Influenza Virus Vaccines AdvReac Mild Nausea Verified 03/09/22 09:50 Home Medications Medication Instructions Recorded Confirmed Type acetaminophen 500 mg tablet 500 mg PO QID PRN Pain 07/10/18 05/13/22 History (Tylenol Extra Strength) lysine 500 mg tablet 500 mg PO QAM 11/25/19 05/13/22 History turmeric root extract 500 mg 500 mg PO QAM 07/29/20 05/13/22 History capsule metoprolol succinate 25 mg 12.5 mg PO HS 08/17/20 05/13/22 History tablet,extended release 24 hr (Toprol XL) amlodipine 5 mg tablet (Norvasc) 5 mg PO HS 06/03/21 05/13/22 History bevacizumab 25 mg/mL intravenous See Rx Instructions intravitreal 08/23/21 05/13/22 Rx solution (Avastin) .COMPLEX #4 mL levothyroxine 125 mcg tablet 125 mcg PO QAM #30 tabs 04/06/22 05/13/22 Rx insulin glargine 100 unit/mL (3 8 unit subcut HS 05/13/22 05/13/22 History mL) subcutaneous pen (Lantus Solostar U-100 Insulin) Patient History Medical History 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 Anemia of chronic disease Hgb 11-13 over past 6 months Aortic valve disease H/o aortic stenosis s/p prosthetic valve replacement (2012) CAD (coronary artery disease) diffuse non-obstructive on 2012 cath per [facility] cardio records Chronic renal disease, stage 3, moderately decreased glomerular filtration rate (GFR) between 30-59 mL/min/1.73 square meter COVID-19 06/2020 Diabetes type 2, controlled IDDM Heart failure chronic right-sided HF per [facility] records, EF 55-59% History of blood transfusion multiple during chemo History of pneumonia 06/2021 History of stroke 2017 ([facility]) > transferred to [place], testing showed endocarditis etiology Residual effects: MCI per record, Slowed speech, slight occasional right sided mouth droop, right side weakness Hypothyroidism IBS (irritable bowel syndrome) Kidney stones Parotid tumor 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 No postop issues per anesthesia progress note. History of back surgery h/o osteomyelitis/discitis s/p lumbar laminectomy History of colonoscopy History of cystoscopy 2017 History of surgery PAROTID X2 History of surgery PEG TUBE AND SINCE REMOVED History of vascular access device INSERTION AND REMOVAL Family History Father , age 85 No problems noted. Mother , age 79 No problems noted. 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 Required: No Beliefs That Will Affect Care: None marital status: Current Living Situation: Spouse current occupational status: retired 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 How many Children do You have: 3 Other Information That Helps Us Care for You: No Feels Safe at Home: Yes Safety Concerns: Feels Safe At This Time Assistive Devices: Glasses and Oxygen - at Night Review of Systems Constitutional: no fever, no fatigue and no weakness Eyes: no diplopia, no eye pain and no worsening vision Ear, Nose, Mouth, Throat: no ear pain, no tinnitus, no hearing loss, no dizziness, no snoring, no hoarseness and no dysphagia Respiratory: no cough and no dyspnea Cardiovascular: no chest pain, no palpitations and no lightheadedness Gastrointestinal: no abdominal pain, no nausea and no vomiting Musculoskeletal: no back pain, no neck pain, no radicular pain, no joint pain and no myalgia Integumentary: no rash and no lesions Neurologic: no gait abnormality, no localized weakness, no generalized weakness, no tingling, no numbness, no tremor(s), no abnormal movements, no headache(s), no abnormal speech, no confusion and no memory loss Psychiatric: no depression, no irritability, no anxiety, no difficulty concentrating, no confusion and no hallucinations Endocrine: no fatigue and no flushing Hematologic / Lymphatic: no easy bleeding and no easy bruising Allergy / Immunological: no urticaria and no problem reported Exam (Neuro) Physical Exam: The patient is right-handed. The patient is awake, alert, and attentive. Speech is normal without any aphasia or dysarthria. The patient can name objects, repeat phrases, and has normal spontaneous speech. Mentation and thought processes are intact, with orientation to person, place and time, and normal fund of knowledge. Attention and concentration are normal. Mood and affect are normal and appropriate. General appearance and grooming are normal. Short and long-term memory are intact. Pupils are 4 mm bilaterally and reactive to light. Extraocular eye muscles are intact without nystagmus. Visual acuity and visual campbell seem normal grossly to confrontation. There are no deficits to sensation in the face in all 3 distributions of the fifth cranial nerve bilaterally. Corneal reflexes are positive bilaterally. Facial strength and symmetry was normal bilaterally. Hearing seems normal bilaterally. Palate moves well without asymmetry. There is normal sternocleidomastoid and trapezius (shoulder shrug) strength bilaterally. Tongue is midline with good strength bilaterally. Neck has a full range of motion without discomfort. There are no cervical bruits bilaterally. There are no cranial or ocular bruits. Heart is without murmur. There is a regular rhythm and rate. Cervical, thoracic, and lumbar spine are nontender to palpation. Gait is narrow based, with good arm swing, turns, and stance. With outstretched arms there is no drift. There are no resting, postural, or action tremors. There is no ataxia with finger to nose testing. There is good facility in the hands. No other abnormal involuntary movements are noted. Motor strength is 5/5 diffusely in the arms bilaterally including deltoids, biceps, triceps, brachioradialis, wrist flexors and extensors, blindmaker, and intrinsic hand muscles. Motor strength is 5/5 diffusely in the legs bilaterally including hip flexors, quadriceps, hamstrings, gastrocnemius, tibialis anterior, tibialis posterior, and Peroneii muscles. Toe extensors are normal and there is good bulk in the extensor digitorum brevis muscles bilaterally. The limbs have good tone without rigidity or spasticity. There is no atrophy noted in the muscles. Muscle bulk is normal, there is no tenderness to palpation, no myotonia to percussion, and no fasciculations seen. Sensory examination is intact to touch and pin throughout all 4 limbs diffusely. Reflexes are 1/4 in the biceps and triceps tendons bilaterally. brachioradialis, quadriceps, and Achilles tendon reflexes were absent bilaterally. There is no clonus bilaterally. Toes are downgoing with plantar stimulation bilaterally. Peripheral pulses are present and of normal quality distally in all 4 limbs. There is no peripheral edema noted in the limbs. Results & Data ([facility]) Vital Signs (Past 12 Hours) Vital Signs Temp Pulse Pulse Resp BP Pulse Ox O2 Del Method 05/14/22 06:44 36.7 C 62 18 138/64 95 Room Air 05/13/22 23:10 64 05/14/22 03:27 36.6 C 63 18 131/57 L 96 Room Air 05/13/22 22:50 Room Air 05/13/22 22:54 36.7 C 75 14 156/71 H 93 Room Air 05/13/22 22:17 71 18 145/62 H 95 Nasal Cannula O2 Flow Rate 05/14/22 06:44 05/13/22 23:10 05/14/22 03:27 05/13/22 22:50 05/13/22 22:54 05/13/22 22:17 2 PG Care Time/CCT Total # of Minutes Spent Total Time Spent with Patient: Total time spent is greater than 50% in coordination of care (as documented) at patient's floor/unit and/or counseling patient: Coding Level of Care Code 42401 Initial Inpt Care Lvl 3 Diagnoses Seizure-like activity R56.9 History of CVA (cerebrovascular accident) Z86.73 Diabetic polyneuropathy E11.42 Time Spent (min) 60
[2022-05-14] MEDS ORDERED: POTASSIUM CHLORIDE CRTAB 20 MEQ TABCR PO ONE (10:00)
[2022-05-14] MEDS ORDERED: DIVALPROEX EXTENDED RELEASE 500 MG TAB PO SCH (10:30)
--- NOTE | 2022-05-14 11:20 | Cardiology Consultation ---
Date of Consultation May 14, 2022 Assessment & Plan (1) Elevated troponin I level: (2) Seizure-like activity: (3) S/P aortic valve replacement with bioprosthetic valve: (4) History of CVA (cerebrovascular accident): Plan Given the patient's lack of symptoms and clinical context I do not see any signs of acute coronary syndrome 2D echocardiogram is unchanged compared to previous No further cardiac test intervention is necessary at this time. No medication changes recommended. Follow-up with cardiology as an outpatient as scheduled. History of Present Illness Reason for Consultation: elevated troponin Requesting Physician: Dr. Jordan Attending Physician: Garo Churchill MD History of Present Illness Mr. Brady is a a 76-year-old gentleman who was admitted to [facility] on 05/13/2022 with complaints of seizure-like activity. The patient is a longstanding history of seizures. His reports that he had a few seconds of tonic-clonic movements the night of presentation followed by 10 minutes of postictal confusion. He was brought into the emergency room and initial work-up showed a mildly elevated troponin level and cardiology was consulted. The patient denies any cardiac complaints. Per prior office notes: The patient's past cardiac history is notable for a minimally invasive bioprosthetic aortic valve replacement utilizing a 21 millimeter magna prosthesis on 12/21/2012 at [facility] performed by Dr. Florez for treatment of severe aortic valve stenosis . Preop cardiac catheterization in October 2012 demonstrated mild diffuse nonobstructive coronary disease. 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 In late 2017, early 2018 he had been admitted on two separate occasions locally and transferred to [facility]. A transesophageal echocardiogram performed at [facility] in April 2018 demonstrated no vegetation and normal functioning AVR. 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 He was readmitted however for back pain and sepsis and diagnosed with the diskitis and osteomyelitis in June 2018. He completed 6 weeks of IV antibiotics in August,. Allergies Allergy/AdvReac Type Severity Reaction Status Date / Time sirolimus Allergy Mild Itch Verified 03/09/22 09:50 duloxetine [From Cymbalta] AdvReac Mild Hypertensio Verified 03/09/22 09:50 n Influenza Virus Vaccines AdvReac Mild Nausea Verified 03/09/22 09:50 Home Medications Medication Instructions Recorded Confirmed Type acetaminophen 500 mg tablet 500 mg PO QID PRN Pain 07/10/18 05/13/22 History (Tylenol Extra Strength) lysine 500 mg tablet 500 mg PO QAM 11/25/19 05/13/22 History turmeric root extract 500 mg 500 mg PO QAM 07/29/20 05/13/22 History capsule metoprolol succinate 25 mg 12.5 mg PO HS 08/17/20 05/13/22 History tablet,extended release 24 hr (Toprol XL) amlodipine 5 mg tablet (Norvasc) 5 mg PO HS 06/03/21 05/13/22 History bevacizumab 25 mg/mL intravenous See Rx Instructions intravitreal 08/23/21 05/13/22 Rx solution (Avastin) .COMPLEX #4 mL levothyroxine 125 mcg tablet 125 mcg PO QAM #30 tabs 04/06/22 05/13/22 Rx insulin glargine 100 unit/mL (3 8 unit subcut HS 05/13/22 05/13/22 History mL) subcutaneous pen (Lantus Solostar U-100 Insulin) cefdinir 300 mg capsule 300 mg PO BID 5 days #10 caps 05/14/22 Rx divalproex 500 mg tablet,extended 500 mg PO DAILY #30 tabs 05/14/22 Rx release 24 hr Patient History Medical History 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 Anemia of chronic disease Hgb 11-13 over past 6 months Aortic valve disease H/o aortic stenosis s/p prosthetic valve replacement (2012) CAD (coronary artery disease) diffuse non-obstructive on 2012 cath per [facility] cardio records Chronic renal disease, stage 3, moderately decreased glomerular filtration rate (GFR) between 30-59 mL/min/1.73 square meter COVID-19 06/2020 Diabetes type 2, controlled IDDM Heart failure chronic right-sided HF per [facility] records, EF 55-59% History of blood transfusion multiple during chemo History of pneumonia 06/2021 History of stroke 2017 ([facility]) > transferred to [place], testing showed endocarditis etiology Residual effects: MCI per record, Slowed speech, slight occasional right sided mouth droop, right side weakness Hypothyroidism IBS (irritable bowel syndrome) Kidney stones Parotid tumor 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 No postop issues per anesthesia progress note. History of back surgery h/o osteomyelitis/discitis s/p lumbar laminectomy History of colonoscopy History of cystoscopy 2017 History of surgery PAROTID X2 History of surgery PEG TUBE AND SINCE REMOVED History of vascular access device INSERTION AND REMOVAL Family History Father , age 85 No problems noted. Mother , age 79 No problems noted. 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 No acute distress. HEENT: Normocephalic, atraumatic. Pupils equal, round and reactive to light and accommodation. Extraocular muscles are intact. Anicteric sclera. Moist mucous membranes. Neck: No JVD. No bruit. Cardiovascular: Regular. Positive S-4. Normal S-1 and S-2. No S-3. 3/6 mid to late systolic ejection murmur, greatest at the right sternal border, second intercostal space with radiation to the bilateral carotids. No rubs. Pulmonary: Clear to auscultation bilaterally. No rales, rhonchi, or wheezing. Abdomen: Bowel sounds x 4, soft. No rebound, guarding or tenderness. No organomegaly. Extremities: No clubbing, cyanosis or edema. +2 pedal pulses bilaterally. Skin: Warm and dry. Results & Data ([facility]) Vital Signs (Past 12 Hours) Vital Signs Temp Pulse Resp BP Pulse Ox O2 Del Method 05/14/22 06:44 36.7 C 62 18 138/64 95 Room Air 05/14/22 03:27 36.6 C 63 18 131/57 L 96 Room Air Diagnostic Findings Echo report 12/30/20 The primary indication after review was deemed appropriate and the examination was performed. The examination is adequate to evaluate the referral indication. The left ventricular cavity size is normal. The LV wall thickness is mildly increased (concentric). The left ventricular wall motion is normal. The qualitative LV ejection fraction is 55-59% (normal). Calculated LV ejection Fraction = 58% (bi-plane method of discs). The left ventricular diastolic function is mildly abnormal (grade I). The left atrium is normal sized (< 35 ml/m^2). There is an aortic valve bioprosthetic present. Peak instantaneous pressure gradient across the aortic valve prosthesis is approximately 40 mmHg, with mean pressure gradient approximately 23 mmHg,
--- NOTE | 2022-05-14 11:22 | Discharge Summary ---
Date of Service May 14, 2022 Admission HPI Per Admitting Provider This is a 76-year-old male with past medical history significant for type 2 diabetes, hypothyroidism, hyperlipidemia, history of hypercalcemia, chronic kidney disease stage III, chronic right sided heart failure, hypertension, history of chronic diarrhea, history of calculus of gallbladder without cholecystitis, enlarged prostate, BPH, discitis,osteomyelitis, restless legs syndrome, history of complex partial seizure disorder, hemiplegia following CVA, chronic back pain without sciatica, history of acute myeloid leukemia, status post stem cell transplant, in remission, history of thrombocytopenia, status post aortic bioprosthetic valve replacement, history of kidney stones, who lives at home with his , was brought in with seizure-like activity last night. It looks like he was admitted to [facility] on 06/09/2021 with seizure like activity. He had a similar episode in 2019 accompanied with sepsis. The patient was placed on Keppra at that time, but he was having decreased appetite and dreams and the patient's 72 hours EEG did not show any seizure activity and Keppra was tapered off by neurology.Last night, the patient again had a few seconds of shaking all over the body and after that confusion for 10 minutes again had another episode of shaking at around 6:30, but it was short and not confused at that time and thinks he was shaking because of the infections. She wants to go back on Keppra if needed, because of his kidney function,though [facility] notes recommended if seizure recur to consider Lamictal, Depakote or Zonegran. The patient is currently resting comfortably, hemodynamically stable, alert and oriented. Denies any headache. Vision is okay. No earache, no runny nose, no sore throat, no cough, no difficulty swallowing. No chest pain. Once in a while he gets short of breath, but currently no shortness of breath, no nausea, no vomiting. Has chronic abdominal pain. Normal bowel and bladder movements. Ambulating okay. Hemodynamically stable. Admission Exam Per Admitting Provider GENERAL: The patient is of moderate build, not in acute distress. VITAL SIGNS: Temperature 37, pulse 64, respiratory rate 17, blood pressure 150/67, oxygen 92% on room air. HEENT: Pupils equal, round and reactive to light. Oral mucosa moist. NECK: No JVD or neck masses. CARDIOVASCULAR: S1 and S2 heard. Systolic murmur in aortic area and tricuspid area heard. RESPIRATORY SYSTEM: Normal AP diameter. No accessory muscle use. No wheezing, no crackles. ABDOMEN: Soft, bowel sounds present. Mild abdominal discomfort. No guarding, no rigidity, no distention. CENTRAL NERVOUS SYSTEM: Alert and oriented. Obeys simple commands. Insight is okay. No facial droop. Speech is clear. Power 5/5 in all extremities. Coordination of movements normal. EXTREMITIES: No edema, no erythema. Principal Diagnosis Possible seizure, UTI Discharge Exam GENERAL: The patient is of moderate build, not in acute distress. HEENT: Pupils equal, round and reactive to light. Oral mucosa moist. NECK: No JVD or neck masses. CARDIOVASCULAR: S1 and S2 heard. Systolic murmur in aortic area and tricuspid area heard. RESPIRATORY SYSTEM: Normal AP diameter. No accessory muscle use. No wheezing, no crackles. ABDOMEN: Soft, bowel sounds present. Mild abdominal discomfort. No guarding, no rigidity, no distention. CENTRAL NERVOUS SYSTEM: Alert and oriented. Obeys simple commands. Insight is okay. No facial droop. Speech is clear. Power 5/5 in all extremities. Coordination of movements normal. EXTREMITIES: No edema, no erythema. Discharge Data Allergies Allergy/AdvReac Type Severity Reaction Status Date / Time sirolimus Allergy Mild Itch Verified 03/09/22 09:50 duloxetine [From Cymbalta] AdvReac Mild Hypertensio Verified 03/09/22 09:50 n Influenza Virus Vaccines AdvReac Mild Nausea Verified 03/09/22 09:50 Consultations 05/13/22 19:35 ED Decision to Admit Stat 05/14/22 08:00 Consult Cardiology Routine Consult Neurology Routine Ordered Studies 05/13/22 16:29 CT Abd and Pelvis [CT abd pelvis wo con] Stat CT head/brain wo con Stat Hospital Course (1) Seizure-like activity: - patient with whole body shaking and post ictal phase prior to admission per - has had history of seizure disorder and work up with [facility] neurology - was initially on keppra but had side effects and was tapered off - given recurrent seizure, neurology recommends starting depakote ER 500mg daily given side effects with keppra - will need outpatient follow up - possible precipitating factor is UTI which we will treat (2) UTI (urinary tract infection): - will treat with 7 days of abx - changed to po on discharge Total Time Total Time Spent Total Time Spent (In Minutes): 35 Total Time Includes: Examination of the Patient, Discharge Planning, Medication Reconciliation and Communication With Other Providers Discharge Plan Discharge Items Patient Disposition: Home - Self-Care Reason For Visit: SEIZURE? Discharge Diagnosis: seizure, UTI Activity: Resume your previous activity Non-emergency contact: Primary Care Provider and Neurologist Call non-emergency contact if: you have any medication questions Follow-up/Referrals: Marlon Adams MD [Physician] - Alena Lang MD [Primary Care Provider] - Diet: Carb Consistent or DM2 and Heart Healthy Addtl Attending Provider Instructions: You were admitted for concern for seizures and found to have a UTI. you were started on antibiotics. You were also seen by Neurology and they recommended starting Depakote ER 500mg daily and to follow up with neurologist. Pending Studies at Discharge: Yes Studies:: urine culture Stand-Alone Forms: My [facility], Smoking Cessation Medications and DC Order Prescriptions: New divalproex 500 mg Tablet Extended Release 24 Hr 500 mg PO DAILY Qty: 30 0RF cefdinir 300 mg capsule 300 mg PO BID 5 Days Qty: 10 0RF Continued levothyroxine 125 mcg tablet 125 mcg PO QAM Qty: 30 3RF lysine 500 mg tablet 500 mg PO QAM metoprolol succinate [Toprol XL] 25 mg tablet extended release 24 hr 12.5 mg PO HS Avastin 25 mg/mL solution See Rx Instructions intravitreal .COMPLEX Qty: 4 0RF Rx Instructions: intravitreal every 14 weeks; acetaminophen [Tylenol Extra Strength] 500 mg Tablet 500 mg PO QID PRN (Reason: Pain) turmeric root extract 500 mg Capsule 500 mg PO QAM amlodipine [Norvasc] 5 mg tablet 5 mg PO HS insulin glargine [Lantus Solostar U-100 Insulin] 100 unit/mL (3 mL) insulin pen 8 unit subcut HS MDD 16 Discharge Orders: Discharge Order (Routine); Ordered 05/14/22 Ordered By: Garo Churchill Admission Data Admit Date/Time: 05/13/22 21:33 Attending Provider: Garo Churchill Admit Provider: David Jordan Primary Care Provider: Alena Lang Other Providers: David Jordan ; Jas Mariee ; Guru Lamar ; Timoteo Keller ; Hamlet Ibrahim ; Zach Hubbard ; Pepe Stewart ; Maira Evangelista ; Lauren Ribeiro ; Alice Norton ; Audie Terry ; Hasmukh Milner ; Marlon Adams ; Codie Trejo ; Lauren Schofield ; Seth Figueroa ; Lauren Pimentel ; Ernie Chaidez ; Svetlana Chi ; Richard Lam ; Yolanda Duron ; Martha Mancilla ; Seth Rosales
[2022-05-14] MEDS ORDERED: cefTRIAXone SODIUM 2,000 MG in DEXTROSE 5% 50 ML IV SCH (18:00)
== END 2022-05-14 12:15 | disposition home or self-care (01) ==
LOC: ED 12:31 → 2S 12:31
DX: Z95.2 Presence of prosthetic heart valve; I13.0 Hypertensive heart and chronic kidney disease with heart failure and stage 1 through stage 4 chronic kidney disease, or unspecified chronic kidney disease; N40.0 Benign prostatic hyperplasia without lower urinary tract symptoms; Z79.4 Long term (current) use of insulin; Z88.7 Allergy status to serum and vaccine; D69.6 Thrombocytopenia, unspecified; Z79.899 Other long term (current) drug therapy; N39.0 Urinary tract infection, site not specified; I69.359 Hemiplegia and hemiparesis following cerebral infarction affecting unspecified side; R77.8 Other specified abnormalities of plasma proteins; Z88.8 Allergy status to other drugs, medicaments and biological substances; R56.9 Unspecified convulsions; E03.9 Hypothyroidism, unspecified; I50.812 Chronic right heart failure; E11.42 Type 2 diabetes mellitus with diabetic polyneuropathy; C92.01 Acute myeloblastic leukemia, in remission

== ENCOUNTER 2022-10-21 15:32 | Inpatient (IN) ==
--- NOTE | 2022-10-21 16:42 | Electrocardiogram Report ---
Test Reason : Blood Pressure : / mmHG Vent. Rate : 114 BPM Atrial Rate : 114 BPM P-R Int : 162 ms QRS Dur : 086 ms QT Int : 322 ms P-R-T Axes : 065 -34 105 degrees QTc Int : 443 ms Sinus tachycardia Possible Left atrial enlargement Left axis deviation Minimal voltage criteria for LVH, may be normal variant Abnormal ECG When compared with ECG of 13-MAY-2022 13:18, Premature ventricular complexes are no longer Present Vent. rate has increased BY 41 BPM T wave inversion more evident in Lateral leads Confirmed by Tom Arizmendi ([id number]) on 10/21/2022 4:42:31 PM Referred By: Confirmed By:Vance Arizmendi
--- NOTE | 2022-10-21 16:49 | Emergency Department Note ---
Impression & Plan Acute respiratory failure with hypoxia, Elevated troponin I level, Pleural effusion, Shortness of breath ED Provider Note NAME: SHELBI BRUNNER AGE: 77 SEX: M : 1945 ARRIVES VIA: Walk-In INFORMANT: Patient ED PROVIDER(S): Zeb Lutz DO CHIEF COMPLAINT: shortness of breath HPI: Patient is a 77-year-old male who presents to the ER for shortness of breath. Patient has a past medical history of diabetes, aortic valve replacement, CKD, as well as seizures. Patient notes this started about 3 to 4 days ago. He admits to cough which has been present for the past month and comes and goes. No chest pain. No runny nose or sore throat. He does admit to some belly pain but this has been chronic for several years and unchanged. No dysuria, urgency, or frequency. notes that he has had this several times before in the past and each time he has had an infection. No other exacerbating or remitting factors. No history of asthma or COPD. Never was a smoker. They also noted his right calf was a little swollen previously but nothing currently. PAST MEDICAL HISTORY:See Below PAST SURGICAL HISTORY:See Below FAMILY HISTORY:See Below SOCIAL HISTORY:See Below HOME MEDICATIONS:See Below ALLERGIES:See Below VITALS:See Below PHYSICAL EXAMINATION: GENERAL: Sitting up in bed, alert, disheveled, chronically ill-appearing, on nasal cannula EYE EXAM: normal conjunctiva. OROPHARYNX: no exudate, no erythema, lips, buccal mucosa, and tongue normal and mucous membranes are moist NECK: supple, no nuchal rigidity, no adenopathy, non-tender LUNGS: Clear to auscultation. Normal chest wall mechanics HEART: no murmurs, S1 normal and S2 normal ABDOMEN: abdomen soft, non-tender, normo-active bowel sounds, no masses, no rebound or guarding. UPPER EXTREMITIES: upper extremities are grossly normal. LOWER EXTREMITIES: No pitting edema. NEURO EXAM: Normal sensorium, cranial nerves II-XII grossly intact, normal speech, no gross weakness of arms, no gross weakness of legs. MEDICAL DECISION MAKING: Patient is a 77-year-old male who presents ER for above-stated complaint. IV was established blood work was obtained. External records were reviewed. Labs show mild leukocytosis 11,000. No significant anemia. INR unremarkable. BMP along with LFTs and bilirubin were normal. Troponin was elevated in the 40s. proBNP was elevated at 2600. Pro-Gabriel was normal. UA was slightly contaminated. Viral panel was negative. Chest x-ray with pulmonary edema. CT of the chest was performed at the [facility] service and shows large pleural effusion. Do favor this because of the hypoxia. He was given Lasix. He was placed on oxygen. He was monitored closely while in the ER. He was discussed with Dr. Amezcua admitted for further work-up. Triage Nursing notes reviewed. Limited review of prior medical records performed Vital Signs: reviewed and remarkable for HTN Differential diagnosis: Differential diagnoses includes but is not limited to pneumonia, bronchitis, COPD/Asthma exacerbation, pneumothorax, pulmonary embolism, congestive heart failure, acute coronary syndrome ER treatment provided: See below Diagnostics interpreted by me include EKG and cardiac monitoring as listed below: -Cardiac Monitoring: An order was placed for continuous cardiac monitoring. The monitor shows a rate of 101 with sinus rhythm. -ECG: Sinus tachycardia rate of 114 Left axis Poor baseline QTc [address] depressions in the high lateral leads as well as the lateral leads -Laboratory studies:Interpreted by me as stated above in MDM and shown below. Imaging studies: Xrays: As interpreted by me: Portable AP upright 1 view of the chest shows p leural effusion CTs show: CT of the chest shows effusions with pulmonary edema Duplex shows no DVT Consultation(s): As described in [facility] Procedures:none Critical Care: I have personally spent 32 minutes of critical care time in the direct management of this patient. This includes bedside care, interpretation of diagnostic studies, and testing, discussion with consultants, patient, and family members, and other required patient management activities. This 32 minutes is in excess of all separately billable procedures. 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 Anemia of chronic disease Hgb 11-13 over past 6 months Aortic valve disease H/o aortic stenosis s/p prosthetic valve replacement (2012) CAD (coronary artery disease) diffuse non-obstructive on 2013 cath per [facility] cardio records Chronic renal disease, stage 3, moderately decreased glomerular filtration rate (GFR) between 30-59 mL/min/1.73 square meter COVID-19 06/2020 Diabetes type 2, controlled IDDM Heart failure chronic right-sided HF per S records, EF 55-59% History of blood transfusion multiple during chemo History of pneumonia 06/2021 History of stroke 2018 ([facility]) > transferred to [place], testing showed endocarditis etiology Residual effects: MCI per record, Slowed speech, slight occasional right sided mouth droop, right side weakness Hypothyroidism IBS (irritable bowel syndrome) Kidney stones Parotid tumor 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, September 2016 H/O transurethral resection of prostate 02/20/19: LMA#4 atraumatic x 1. No postop issues per anesthesia progress note. History of back surgery h/o osteomyelitis/discitis s/p lumbar laminectomy History of colonoscopy History of cystoscopy 2018 History of surgery PAROTID X2 History of surgery PEG TUBE AND SINCE REMOVED History of vascular access device INSERTION AND REMOVAL Family History Father , age 85 No problems noted. Mother , age 79 No problems noted. 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 How many Children do You have: 3 Feels Safe at Home: Yes Assistive Devices: None Allergies Allergies Allergy/AdvReac Type Severity Reaction Status Date / Time amoxicillin AdvReac Intermediate SHAKES/CHILLS/FLU-LIKE Verified 10/21/22 20:42 SYMPTOMS duloxetine [From Cymbalta] AdvReac Intermediate Hypertensio Verified 10/21/22 20:42 n Influenza Virus Vaccines AdvReac Intermediate MUSCLE Verified 10/21/22 20:42 PAIN/COUGH/PAIN IN FEET sirolimus AdvReac Intermediate ABD Verified 10/21/22 20:42 PAIN/DIARRHEA/EDEMA Home Meds Home Medications Medication Instructions Recorded Confirmed acetaminophen 500 mg tablet 500 mg PO QID PRN Pain 07/10/18 10/21/22 (Tylenol Extra Strength) metoprolol succinate 25 mg 12.5 mg PO HS 08/17/20 10/21/22 tablet,extended release 24 hr (Toprol XL) amlodipine 5 mg tablet (Norvasc) 5 mg PO HS 06/03/21 10/21/22 insulin glargine 100 unit/mL (3 6 unit subcut HS 05/13/22 10/21/22 mL) subcutaneous pen (Lantus Solostar U-100 Insulin) L.acidophil-L.casei-B.bifid-B.longum-FOS 1 cap PO BID 10/21/22 10/21/22 2 billion cell-50 mg capsule (Probiotic Blend) cephalexin 500 mg capsule 2,000 mg PO DIRECTED PRN PRIOR 10/21/22 10/21/22 TO DENTAL PROCEDURES Previous Rx's Medication Instructions Recorded bevacizumab 25 mg/mL intravenous See Rx Instructions intravitreal 08/23/21 solution (Avastin) .COMPLEX #4 mL Tirosint 125 mcg capsule 125 mcg PO DAILY #30 caps 09/23/22 (levothyroxine) divalproex 500 mg tablet,extended 500 mg PO BID 90 days #180 tabs 10/03/22 release 24 hr Results & Data (ED) Vital Signs Vital Signs - 24 hr 10/21/22 15:59 10/21/22 16:03 10/21/22 16:36 Temperature 37 C Temperature Source Temporal Artery Scan Pulse Rate 103 H Pulse Rate [Right Apical] 105 H Pulse Rate from SpO2 Sensor Respiratory Rate 20 22 Respiratory Effort / Characteristics Non-Labored Non-Labored Non-Labored Spontaneous Respiratory Depth Normal Normal Normal Respiratory Pattern Regular Regular Regular Blood Pressure 149/59 H Blood Pressure [Left Arm] 165/84 H Blood Pressure Mean 89 Blood Pressure Mean [Left Arm] 111 Pulse Oximetry 90 95 Oxygen Delivery Method Room Air Room Air Nasal Cannula Oxygen Flow Rate 5 Sepsis Recent Fever Within 48 Hours No Sepsis New/Unexplained Change in Mental Status N/A Sepsis Action Taken by Nursing No Action Required Oxygen Flow Rate - Titration Pulse Oximetry Post Tiitration 10/21/22 16:36 10/21/22 16:30 10/21/22 16:45 Temperature Temperature Source Pulse Rate 105 H Pulse Rate [Right Apical] Pulse Rate from SpO2 Sensor Respiratory Rate Respiratory Effort / Characteristics Respiratory Depth Respiratory Pattern Blood Pressure Blood Pressure [Left Arm] Blood Pressure Mean Blood Pressure Mean [Left Arm] Pulse Oximetry 95 85 L Oxygen Delivery Method Nasal Cannula Room Air Oxygen Flow Rate 5 Sepsis Recent Fever Within 48 Hours Sepsis New/Unexplained Change in Mental Status Sepsis Action Taken by Nursing Oxygen Flow Rate - Titration 5 Pulse Oximetry Post Tiitration 95 10/21/22 16:57 10/21/22 17:00 10/21/22 17:43 Temperature Temperature Source Pulse Rate 110 H 119 H Pulse Rate [Right Apical] Pulse Rate from SpO2 Sensor 110 H 119 H Respiratory Rate 24 24 Respiratory Effort / Characteristics Respiratory Depth Respiratory Pattern Blood Pressure 173/89 H 177/95 H Blood Pressure [Left Arm] Blood Pressure Mean 117 122 Blood Pressure Mean [Left Arm] Pulse Oximetry 93 91 91 Oxygen Delivery Method Nasal Cannula Nasal Cannula Nasal Cannula Oxygen Flow Rate 5 5 5 Sepsis Recent Fever Within 48 Hours Sepsis New/Unexplained Change in Mental Status Sepsis Action Taken by Nursing Oxygen Flow Rate - Titration Pulse Oximetry Post Tiitration 10/21/22 18:00 Temperature Temperature Source Pulse Rate 114 H Pulse Rate [Right Apical] Pulse Rate from SpO2 Sensor 113 H Respiratory Rate 24 Respiratory Effort / Characteristics Respiratory Depth Respiratory Pattern Blood Pressure 162/95 H Blood Pressure [Left Arm] Blood Pressure Mean 117 Blood Pressure Mean [Left Arm] Pulse Oximetry 96 Oxygen Delivery Method Nasal Cannula Oxygen Flow Rate 5 Sepsis Recent Fever Within 48 Hours Sepsis New/Unexplained Change in Mental Status Sepsis Action Taken by Nursing Oxygen Flow Rate - Titration Pulse Oximetry Post Tiitration Laboratory Data 10/21/22 16:28 10/21/22 16:28 Lab Results 10/21/22 10/21/22 10/21/22 Range/Units 16:28 16:28 16:28 WBC 11.51 H (4.8-10.8) K/ul RBC 4.33 L (4.70-6.10) M/uL Hgb 12.9 L (14.0-18.0) g/dl Hct 39.0 L (42.0-52.0) % MCV 90.1 (80.0-100.0) fL MCH 29.8 (25.0-34.0) pg MCHC 33.1 (32.0-36.0) g/dL RDW Std Deviation 51.6 H (36.4-46.3) fL RDW Coeff of Paul 15.6 H (11.5-14.5) % Plt Count 159 (130-400) K/uL MPV 10.3 (9.4-12.4) fL Immature Gran % (Auto) 0.5 % Neut % (Auto) 61.5 % Lymph % (Auto) 25.3 % [place] % (Auto) 9.7 % Eos % (Auto) 2.6 % Baso % (Auto) 0.4 % Neut # (Auto) 7.07 H (1.40-6.50) K/uL Lymph # (Auto) 2.91 (1.2-3.4) K/uL [place] # (Auto) 1.12 H (0.11-0.59) K/uL Eos # (Auto) 0.30 (0-0.50) K/uL Baso # (Auto) 0.05 (0-0.2) K/uL Immature Gran # (Auto) 0.06 (0.01-0.20) K/uL PT 11.4 (9.0-12.0) Seconds INR 1.0 (0.9-1.1) APTT 28.9 (21.0-31.0) Seconds PTT Ratio 1.0 Sodium 139 (136-145) mmol/L Potassium 4.1 (3.5-5.1) mmol/L Chloride 107 (98-107) mmol/L Carbon Dioxide 23 (21-32) mmol/L Anion Gap 9 (3-11) BUN 28 H (6-23) mg/dl Creatinine 1.15 (0.6-1.4) mg/dl Est Cr Clr Drug Dosing 39.2 ml/min Est GFR ( Amer) 71.7 ml/min Est GFR (Non-Af Amer) 61.9 ml/min BUN/Creatinine Ratio 24.3 H (10-20) Glucose 78 (70-99(Fasting)) mg/dl Calcium 9.5 (8.6-10.3) mg/dl Total Bilirubin 0.8 (0.2-1.0) mg/dl AST 22 (13-39) U/L ALT 13 (7-52) U/L Alkaline Phosphatase 73 (34-104) U/L Troponin I High Sens 43.2 H (0-20) pg/ml B-Natriuretic Peptide (0-100) pg/ml Total Protein 7.8 (6.0-8.3) gm/dl Albumin 4.4 (3.4-5.0) gm/dl Globulin 3.4 (2.5-4.0) gm/dl Albumin/Globulin Ratio 1.3 (0.9-2) Valproic Acid (50-100) mcg/ml Adenovirus (PCR) (NotDetected) B. pertussis DNA (PCR) (NotDetected) B.parapertussis DNA PCR (NotDetected) C. pneumoniae DNA (PCR) (NotDetected) Coronavirus OC43 (PCR) (NotDetected) Coronavirus HKU1 (PCR) (NotDetected) Coronavirus 229E (PCR) (NotDetected) SARS-CoV-2 (PCR) (Negative) Coronavirus NL63 (PCR) (NotDetected) Human Metapneumovir PCR (NotDetected) Influenza Type A (PCR) (Neg) Influenza Type B (PCR) (Neg) M. pneumoniae (PCR) (NotDetected) Parainfluenza 1 (PCR) (NotDetected) Parainfluenza 2 (PCR) (NotDetected) Parainfluenza 3 (PCR) (NotDetected) Parainfluenza 4 (PCR) (NotDetected) RSV (RT-PCR) (Neg) RSV (PCR) (NotDetected) Entero/Rhino (PCR) (NotDetected) 10/21/22 10/21/22 10/21/22 Range/Units 16:35 17:03 17:03 WBC (4.8-10.8) K/ul RBC (4.70-6.10) M/uL Hgb (14.0-18.0) g/dl Hct (42.0-52.0) % MCV (80.0-100.0) fL MCH (25.0-34.0) pg MCHC (32.0-36.0) g/dL RDW Std Deviation (36.4-46.3) fL RDW Coeff of Paul (11.5-14.5) % Plt Count (130-400) K/uL MPV (9.4-12.4) fL Immature Gran % (Auto) % Neut % (Auto) % Lymph % (Auto) % [place] % (Auto) % Eos % (Auto) % Baso % (Auto) % Neut # (Auto) (1.40-6.50) K/uL Lymph # (Auto) (1.2-3.4) K/uL [place] # (Auto) (0.11-0.59) K/uL Eos # (Auto) (0-0.50) K/uL Baso # (Auto) (0-0.2) K/uL Immature Gran # (Auto) (0.01-0.20) K/uL PT (9.0-12.0) Seconds INR (0.9-1.1) APTT (21.0-31.0) Seconds PTT Ratio Sodium (136-145) mmol/L Potassium (3.5-5.1) mmol/L Chloride (98-107) mmol/L Carbon Dioxide (21-32) mmol/L Anion Gap (3-11) BUN (6-23) mg/dl Creatinine (0.6-1.4) mg/dl Est Cr Clr Drug Dosing ml/min Est GFR ( Amer) ml/min Est GFR (Non-Af Amer) ml/min BUN/Creatinine Ratio (10-20) Glucose (70-99(Fasting)) mg/dl Calcium (8.6-10.3) mg/dl Total Bilirubin (0.2-1.0) mg/dl AST (13-39) U/L ALT (7-52) U/L Alkaline Phosphatase (34-104) U/L Troponin I High Sens (0-20) pg/ml B-Natriuretic Peptide 2634 H (0-100) pg/ml Total Protein (6.0-8.3) gm/dl Albumin (3.4-5.0) gm/dl Globulin (2.5-4.0) gm/dl Albumin/Globulin Ratio (0.9-2) Valproic Acid 49 L (50-100) mcg/ml Adenovirus (PCR) (NotDetected) B. pertussis DNA (PCR) (NotDetected) B.parapertussis DNA PCR (NotDetected) C. pneumoniae DNA (PCR) (NotDetected) Coronavirus OC43 (PCR) (NotDetected) Coronavirus HKU1 (PCR) (NotDetected) Coronavirus 229E (PCR) (NotDetected) SARS-CoV-2 (PCR) NEGATIVE (Negative) Coronavirus NL63 (PCR) (NotDetected) Human Metapneumovir PCR (NotDetected) Influenza Type A (PCR) Negative (Neg) Influenza Type B (PCR) Negative (Neg) M. pneumoniae (PCR) (NotDetected) Parainfluenza 1 (PCR) (NotDetected) Parainfluenza 2 (PCR) (NotDetected) Parainfluenza 3 (PCR) (NotDetected) Parainfluenza 4 (PCR) (NotDetected) RSV (RT-PCR) Negative (Neg) RSV (PCR) (NotDetected) Entero/Rhino (PCR) (NotDetected) 10/21/22 Range/Units 17:07 WBC (4.8-10.8) K/ul RBC (4.70-6.10) M/uL Hgb (14.0-18.0) g/dl Hct (42.0-52.0) % MCV (80.0-100.0) fL MCH (25.0-34.0) pg MCHC (32.0-36.0) g/dL RDW Std Deviation (36.4-46.3) fL RDW Coeff of Paul (11.5-14.5) % Plt Count (130-400) K/uL MPV (9.4-12.4) fL Immature Gran % (Auto) % Neut % (Auto) % Lymph % (Auto) % [place] % (Auto) % Eos % (Auto) % Baso % (Auto) % Neut # (Auto) (1.40-6.50) K/uL Lymph # (Auto) (1.2-3.4) K/uL [place] # (Auto) (0.11-0.59) K/uL Eos # (Auto) (0-0.50) K/uL Baso # (Auto) (0-0.2) K/uL Immature Gran # (Auto) (0.01-0.20) K/uL PT (9.0-12.0) Seconds INR (0.9-1.1) APTT (21.0-31.0) Seconds PTT Ratio Sodium (136-145) mmol/L Potassium (3.5-5.1) mmol/L Chloride (98-107) mmol/L Carbon Dioxide (21-32) mmol/L Anion Gap (3-11) BUN (6-23) mg/dl Creatinine (0.6-1.4) mg/dl Est Cr Clr Drug Dosing ml/min Est GFR ( Amer) ml/min Est GFR (Non-Af Amer) ml/min BUN/Creatinine Ratio (10-20) Glucose (70-99(Fasting)) mg/dl Calcium (8.6-10.3) mg/dl Total Bilirubin (0.2-1.0) mg/dl AST (13-39) U/L ALT (7-52) U/L Alkaline Phosphatase (34-104) U/L Troponin I High Sens (0-20) pg/ml B-Natriuretic Peptide (0-100) pg/ml Total Protein (6.0-8.3) gm/dl Albumin (3.4-5.0) gm/dl Globulin (2.5-4.0) gm/dl Albumin/Globulin Ratio (0.9-2) Valproic Acid (50-100) mcg/ml Adenovirus (PCR) Not Detected (NotDetected) B. pertussis DNA (PCR) Not Detected (NotDetected) B.parapertussis DNA PCR Not Detected (NotDetected) C. pneumoniae DNA (PCR) Not Detected (NotDetected) Coronavirus OC43 (PCR) Not Detected (NotDetected) Coronavirus HKU1 (PCR) Not Detected (NotDetected) Coronavirus 229E (PCR) Not Detected (NotDetected) SARS-CoV-2 (PCR) Not Detected (Negative) Coronavirus NL63 (PCR) Not Detected (NotDetected) Human Metapneumovir PCR Not Detected (NotDetected) Influenza Type A (PCR) Not Detected (Neg) Influenza Type B (PCR) Not Detected (Neg) M. pneumoniae (PCR) Not Detected (NotDetected) Parainfluenza 1 (PCR) Not Detected (NotDetected) Parainfluenza 2 (PCR) Not Detected (NotDetected) Parainfluenza 3 (PCR) Not Detected (NotDetected) Parainfluenza 4 (PCR) Not Detected (NotDetected) RSV (RT-PCR) (Neg) RSV (PCR) Not Detected (NotDetected) Entero/Rhino (PCR) Not Detected (NotDetected) Administered Medications Amlodipine Besylate (Amlodipine Besylate 5 Mg Tab) 5 mg PO HS REPLACED BY [facility] Stop: 11/20/22 20:59 Last Admin: 10/21/22 21:58 Dose: 5 mg Documented By: SG Divalproex Sodium (Divalproex Extended Release 500 Mg Tab) 500 mg PO BID KASSANDRA Stop: 11/20/22 20:59 Last Admin: 10/21/22 21:59 Dose: 500 mg Documented By: SG Furosemide (Furosemide 40 Mg/4 Ml Vial) 40 mg IV ONE ONE Stop: 10/21/22 23:01 Last Admin: 10/21/22 22:00 Dose: 40 mg Documented By: SG Heparin Sodium (Porcine) (Heparin Sod 5,000 Unit/0.5 Ml Vial) 5,000 units SQ Q12 KASSANDRA Stop: 11/20/22 21:06 Last Admin: 10/21/22 21:57 Dose: 5,000 units Documented By: SG Ceftriaxone Sodium 2,000 mg/ (Dextrose) 70 mls @ 100 mls/hr IV Q24H REPLACED BY [facility]; Protocol Stop: 10/28/22 21:29 Last Admin: 10/21/22 21:57 Dose: 100 mls/hr Documented By: SG Doxycycline Hyclate 100 mg/ (Dextrose) 110 mls @ 50 mls/hr IV Q12H KASSANDRA Stop: 10/28/22 21:59 Last Admin: 10/21/22 22:10 Dose: 50 mls/hr Documented By: SG Metoprolol Succinate (Metoprolol Succ 25mg Ext Rel Tab) 12.5 mg PO HS KASSANDRA Stop: 11/20/22 20:59 Last Admin: 10/21/22 21:58 Dose: 12.5 mg Documented By: JOSELYN Discontinued Medications Furosemide (Furosemide 40 Mg/4 Ml Vial) 40 mg IV ONE ONE Stop: 10/21/22 18:12 Last Admin: 10/21/22 19:20 Dose: 40 mg Documented By: JOSELYN Ioversol (Optiray 320 100ml) 84 ml IV ONCE ONE Stop: 10/21/22 19:08 Last Admin: 10/21/22 19:07 Dose: 84 ml Documented By: EDK Imaging Data Radiologist's Impression: Chest X-Ray 10/21/22 16:03 XR chest 1V portable CLINICAL HISTORY: Chest pain, nonspecific COMPARISON STUDY: Chest radiograph May 13, 2022. FINDINGS: Median sternotomy wires and prosthetic aortic valve are incidentally noted. There is no pneumothorax. There is a small to moderate left pleural effusion and a trace right pleural effusion. Interstitial thickening and airspace opacities are slightly greater within the left lung. Patient is rotated. IMPRESSION: 1. Interstitial thickening and airspace opacities, as described above. The findings favor pulmonary edema. Pneumonia could appear similar. Radiographic follow up is recommended. 2. Small to moderate left and trace right pleural effusions. ACT 112: Negative or not required by law. Electronically signed by: Pk Lopez M.D. 10/21/2022 5:06 PM Venous Doppler Study 10/21/22 16:53 US venous doppler LE RT HISTORY: 77 years-old Male rle swelling acute pain and swelling of the right lower leg COMPARISON: 06/04/2018 TECHNIQUE: Multiple real-time sonographic images of the right lower extremity deep venous structures were obtained assessing grayscale appearance, color and spectral flow. FINDINGS: Normal flow, compressibility, phasicity and augmentation. IMPRESSION: No sonographic evidence of deep venous thrombosis. ACT 112: Negative or not required by law. The above report was generated using voice recognition software. It may contain grammatical, syntax or spelling errors. Electronically signed by: Garrett Silva M.D. 10/21/2022 5:[address] 10/21/22 18:00 Exam(s): CT CHEST With Contrast IV Amt: 84ml OPTIRAY 320 EXAM: CT Chest With Intravenous Contrast CLINICAL HISTORY: Reason for exam: sob hypoxic. TECHNIQUE: Axial computed tomography images of the chest with intravenous contrast. CTDI is 4.19 mGy and DLP is 135.97 mGy-cm. Automated exposure control was utilized for the study. A dose lowering technique was utilized adhering to the principles of ALARA. CONTRAST: Patient received 84ml OPTIRAY 320 of IV contrast COMPARISON: CT chest 03/19/17 FINDINGS: Patient is status post midline sternotomy and aortic valve replacement. Heart is enlarged. Coronary arteries are calcified. There is no pericardial effusion or right ventricular strain. Enlarged AP window lymph nodes measure up to 14 mm short axis. Thoracic aorta demonstrates scattered calcific plaque without aneurysm or dissection. Main pulmonary artery is normal in caliber. There are small left and moderate right pleural effusions. There is no pneumothorax. Bilateral septal thickening is present. Alveolar airspace opacities are present in the left upper lobe. There is patchy subsegmental atelectasis bilaterally. No masses identified. Chronic-appearing compression fractures are present at T4 and T6. No acute osseous findings are visualized. IMPRESSION: 1. Moderate right and small left pleural effusions. 2. Pulmonary edema. 3. Patchy alveolar opacities in the left upper lobe, most likely alveolar edema, but pneumonia not excluded. Correlate clinically. 4. Enlarged AP window lymph nodes may be reactive or may be due to edema. Electronically signed by: Adilene Das M.D. 10/21/22 19:22 PM Discharge Plan Visit Data Chief Complaint: Shortness of Breath/Dyspnea Stated Complaint: SOB ED Provider: Zeb Lutz Discharge Problem: Acute respiratory failure with hypoxia, Elevated troponin I level, Pleural effusion, Shortness of breath Patient Disposition: Admitted As Inpatient Discharge Instructions Interventions: ED Discharge Assessment Last Done: 10/21/22 21:07
[2022-10-21 16:50] LABS: Basophils # (auto) 0.05 K/uL (0-0.2); Basophils % (auto) 0.4 %; Eosinophils % (auto) 2.6 %; Hemoglobin 12.9 g/dl (14.0-18.0); Immature Granulocytes # (auto) 0.06 K/uL (0.01-0.20); Immature Granulocytes % (auto) 0.5 %; Lymphocytes # (auto) 2.91 K/uL (1.2-3.4); Lymphocytes % (auto) 25.3 %; Mean Corpuscular Hemoglobin 29.8 pg (25.0-34.0); Mean Corpuscular Hgb Conc 33.1 g/dL (32.0-36.0); Mean Corpuscular Volume 90.1 fL (80.0-100.0); Mean Platelet Volume 10.3 fL (9.4-12.4); Monocytes # (auto) 1.12 K/uL (0.11-0.59); Monocytes % (auto) 9.7 %; Neutrophils # (auto) 7.07 K/uL (1.40-6.50); Neutrophils % (auto) 61.5 %; Platelet Count 159 K/uL (130-400); RDW Coefficient of Variation 15.6 % (11.5-14.5); RDW Standard Deviation 51.6 fL (36.4-46.3); Red Blood Count 4.33 M/uL (4.70-6.10); White Blood Count 11.51 K/ul (4.8-10.8)
[2022-10-21 17:06] LABS: Albumin Globulin Ratio 1.3 (0.9-2); Albumin Level 4.4 gm/dl (3.4-5.0); BUN Creatinine Ratio 24.3 (10-20); Bilirubin,Total 0.8 mg/dl (0.2-1.0); Calcium 9.5 mg/dl (8.6-10.3); Creatinine Clr Calc Pharmacy 39.2 ml/min; Est GFR (African American) 71.7 ml/min; Est GFR (Non-African American) 61.9 ml/min; Globulin 3.4 gm/dl (2.5-4.0); Potassium 4.1 mmol/L (3.5-5.1); Total Protein 7.8 gm/dl (6.0-8.3)
--- NOTE | 2022-10-21 17:07 | XRay Report ---
XR chest 1V portable CLINICAL HISTORY: Chest pain, nonspecific COMPARISON STUDY: Chest radiograph May 13, 2022. FINDINGS: Median sternotomy wires and prosthetic aortic valve are incidentally noted. There is no pne umothorax. There is a small to moderate left pleural effusion and a trace right pleural effusion. Int erstitial thickening and airspace opacities are slightly greater within the left lung. Patient is rot ated. IMPRESSION: 1. Interstitial thickening and airspace opacities, as described above. The findings favor pulmonary e corona. Pneumonia could appear similar. Radiographic follow up is recommended. 2. Small to moderate left and trace right pleural effusions. ACT 112: Negative or not required by law. Electronically signed by: Pk Lopez M.D. 10/21/2022 5:06 PM
[2022-10-21 17:11] LABS: Troponin I High Sensitivity 43.2 pg/ml (0-20)
[2022-10-21 17:16] LABS: Partial Thromboplastin Time 28.9 Seconds (21.0-31.0); Prothrombin Time 11.4 Seconds (9.0-12.0)
[2022-10-21 17:30] LABS: Influenza A virus by PCR Negative (Neg); Influenza B virus by PCR Negative (Neg); RSV by PCR Negative (Neg); SARS CoV2 RNA(COVID-19) Ceph NEGATIVE (Negative)
--- NOTE | 2022-10-21 17:43 | Ultrasound Report ---
US venous doppler LE RT HISTORY: 77 years-old Male rle swelling acute pain and swelling of the right lower leg COMPARISON: 06/04/2018 TECHNIQUE: Multiple real-time sonographic images of the right lower extremity deep venous structures were obtained assessing grayscale appearance, color and spectral flow. FINDINGS: Normal flow, compressibility, phasicity and augmentation. IMPRESSION: No sonographic evidence of deep venous thrombosis. ACT 112: Negative or not required by law. The above report was generated using voice recognition software. It may contain grammatical, syntax o r spelling errors. Electronically signed by: Garrett Silva M.D. 10/21/2022 5:42 PM
[2022-10-21] MEDS ORDERED: FUROSEMIDE 40 MG/4 ML VIAL IV ONE ×2 (18:11→23:00)
[2022-10-21 18:12] LABS: Adenovirus PCR Not Detected (NotDetected); Bordetella parapertussis PCR Not Detected (NotDetected); Bordetella pertussis PCR Not Detected (NotDetected); Chlamydia pneumoniae PCR Not Detected (NotDetected); Coronavirus 229E PCR Not Detected (NotDetected); Coronavirus CoV-2 (COVID19)PCR Not Detected (NotDetected); Coronavirus HKU1 PCR Not Detected (NotDetected); Coronavirus NL63 PCR Not Detected (NotDetected); Coronavirus OC43PCR Not Detected (NotDetected); Human Metapneumovirus PCR Not Detected (NotDetected); Influenza A PCR Not Detected (NotDetected); Influenza B PCR Not Detected (NotDetected); Mycoplasma pneumoniae PCR Not Detected (NotDetected); Parainfluenza Virus 1 PCR Not Detected (NotDetected); Parainfluenza Virus 2 PCR Not Detected (NotDetected); Parainfluenza Virus 3 PCR Not Detected (NotDetected); Parainfluenza Virus 4 PCR Not Detected (NotDetected); Respiratory Syncytial VirusPCR Not Detected (NotDetected); Rhinovirus/Enterovirus PCR Not Detected (NotDetected)
--- NOTE | 2022-10-21 18:17 | History & Physical Report ---
Date of Service October 21, 2022 Assessment & Plan (1) Acute respiratory failure with hypoxia: (2) Pleural effusion: (3) Acute on chronic diastolic (congestive) heart failure: Plan: Acute hypoxic respite failure likely multifactorial(acute on chronic diastolic heart failure, possible pneumonia with pleural effusion) Presented with shortness of breath for 3 days Also, low-grade fever at home. Leukocytosis present. BNP markedly elevated Chest x-ray shows pulm edema with a small to moderate bilateral pleural effusion. CT angio shows finding consistent with pulmonary edema. Also, moderate size pleural effusion on right side. Started on IV Lasix twice daily. Strict MERCY's. Osman placed for strict MERCY's. Also, ceftriaxone and doxycycline ordered for possible pneumonia. BiPAP ordered to help with work of breathing. Obtain echocardiogram. Cardiac consult. Pulmonology consulted for moderate-sized pleural effusion (4) Elevated troponin: Plan: Elevated high-sensitivity troponin in setting of demand ischemia Trend troponin. Obtain echocardiogram; last echocardiogram in May 2022.EF of 55-60%. grade 2 diastolic dysfunction. Plan Chronic conditions; Hypertensioncontinue amlodipine and metoprolol. Type 2 diabetes mellituscontinue on Lantus and NovoLog Seizure disordercontinue on sodium valproate CKDcreatinine at baseline. Avoid nephrotoxic drugs. Acute myelogenous leukemia in remission Full code DVT prophylaxis heparin Time spent evaluating patient, direct bedside care, chart review, placing orders, interpretation of diagnostic studies, discussion with consultants, patient, and family members, as well as other required patient management activities is 90 minutes. Please note the above document was generated using voice recognition software. It may contain grammatical, syntax or spelling errors. Any formal questions or concerns about the content, text or information contained within the body of t his dictation should be directly addressed to the provider for clarification History of Present Illness Chief Complaint: Shortness of breath for 3 days Primary Care Provider: Alena Lang MD History obtained from chart review and interview with the patient. 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 Patient presents to the hospital with shortness of breath for 3 days. The shortness of breath was gradual onset; progressively increased in the last 3 days. Patient's checked his oxygen saturation at home; was 81% in room air. Patient also reports cough with mucoid sputum production. He denies any chest pain or palpitations. He reports low-grade temperatures; temperature not measured at home. He reports URI symptoms last 2 weeks. On presentation to the ED, he was tachypneic, tachycardic and was normotensive. CBC was remarkable for elevated WBC. BUN/creatinine elevated consistent with CKD. Chest x-ray shows pulmonary edema with small to moderate pleural effusion. Allergies Allergy/AdvReac Type Severity Reaction Status Date / Time amoxicillin Allergy Intermediate Shakiness Verified 10/03/22 13:43 sirolimus Allergy Mild Itch Verified 10/03/22 13:43 duloxetine [From Cymbalta] AdvReac Mild Hypertensio Verified 10/03/22 13:43 n Influenza Virus Vaccines AdvReac Mild Nausea Verified 10/03/22 13:43 Home Medications Medication Instructions Recorded Confirmed Type acetaminophen 500 mg tablet 500 mg PO QID PRN Pain 07/10/18 07/21/22 History (Tylenol Extra Strength) lysine 500 mg tablet 500 mg PO QAM 11/25/19 07/21/22 History turmeric root extract 500 mg 500 mg PO QAM 07/29/20 07/21/22 History capsule metoprolol succinate 25 mg 12.5 mg PO HS 08/17/20 07/21/22 History tablet,extended release 24 hr (Toprol XL) amlodipine 5 mg tablet (Norvasc) 5 mg PO HS 06/03/21 07/21/22 History bevacizumab 25 mg/mL intravenous See Rx Instructions intravitreal 08/23/21 07/21/22 Rx solution (Avastin) .COMPLEX #4 mL insulin glargine 100 unit/mL (3 8 unit subcut HS 05/13/22 07/21/22 History mL) subcutaneous pen (Lantus Solostar U-100 Insulin) multivitamin [Daily Multi-Vitamin] PO 06/07/22 07/21/22 History Tirosint 125 mcg capsule 125 mcg PO DAILY #30 caps 09/23/22 Rx (levothyroxine) divalproex 500 mg tablet,extended 500 mg PO BID 90 days #180 tabs 10/03/22 10/03/22 Rx release 24 hr Past Med/Surg History Medical History 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 Anemia of chronic disease Hgb 11-13 over past 6 months Aortic valve disease H/o aortic stenosis s/p prosthetic valve replacement (2012) CAD (coronary artery disease) diffuse non-obstructive on 2012 cath per [facility] cardio records Chronic renal disease, stage 3, moderately decreased glomerular filtration rate (GFR) between 30-59 mL/min/1.73 square meter COVID-19 06/2020 Diabetes type 2, controlled IDDM Heart failure chronic right-sided HF per [facility] records, EF 55-59% History of blood transfusion multiple during chemo History of pneumonia 06/2021 History of stroke 2018 ([facility]) > transferred to [place], testing showed endocarditis etiology Residual effects: MCI per record, Slowed speech, slight occasional right sided mouth droop, right side weakness Hypothyroidism IBS (irritable bowel syndrome) Kidney stones Parotid tumor 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 No postop issues per anesthesia progress note. History of back surgery h/o osteomyelitis/discitis s/p lumbar laminectomy History of colonoscopy History of cystoscopy 2018 History of surgery PAROTID X2 History of surgery PEG TUBE AND SINCE REMOVED History of vascular access device INSERTION AND REMOVAL Family History Father , age 85 No problems noted. Mother , age 79 No problems noted. 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 Using accessory muscles. Moderate respiratory distress. Respiratory: Bilateral crackles up to mid lung campbell. Decreased breath sound on right lower lung field. Cardiovascular: RRR, no murmur, no edema Vessels: no JVD or carotid bruit Chest: normal inspection of chest Abdomen: normal bowel sounds, soft, nontender, no hepatosplenomegaly Musculoskeletal: no cyanosis or clubbing, extremities motor strength 5/5 Skin: no rashes, warm and dry normal turgor Neurologic: Grossly intact Psychiatric: A+Ox3, euthymic affect Lymphatic: no cervical or axillary lymphadenopathy : deferred Results & Data Results & Data Vital Signs (Past 12 Hours) Vital Signs Temp Pulse Pulse Resp BP BP Pulse Ox 10/21/22 17:43 119 H 24 177/95 H 91 10/21/22 17:00 110 H 24 173/89 H 91 10/21/22 16:57 93 10/21/22 16:45 105 H 10/21/22 16:30 85 L 10/21/22 16:36 95 10/21/22 16:36 105 H 22 165/84 H 95 10/21/22 16:03 10/21/22 15:59 37 C 103 H 20 149/59 H 90 O2 Del Method O2 Flow Rate 10/21/22 17:43 Nasal Cannula 5 10/21/22 17:00 Nasal Cannula 5 10/21/22 16:57 Nasal Cannula 5 10/21/22 16:45 10/21/22 16:30 Room Air 10/21/22 16:36 Nasal Cannula 5 10/21/22 16:36 Nasal Cannula 5 10/21/22 16:03 Room Air 10/21/22 15:59 Room Air Laboratory Results Laboratory Results WBC 11.51 K/ul (4.8-10.8) H 10/21/22 16: RBC 4.33 M/uL (4.70-6.10) L 10/21/22 16: Hgb 12.9 g/dl (14.0-18.0) L 10/21/22 16: Hct 39.0 % (42.0-52.0) L 10/21/22 16: MCV 90.1 fL (80.0-100.0) 10/21/22 16: MCH 29.8 pg (25.0-34.0) 10/21/22 16: MCHC 33.1 g/dL (32.0-36.0) 10/21/22 16: RDW Std Deviation 51.6 fL (36.4-46.3) H 10/21/22 16: RDW Coeff of Paul 15.6 % (11.5-14.5) H 10/21/22 16: Plt Count 159 K/uL (130-400) 10/21/22 16: MPV 10.3 fL (9.4-12.4) 10/21/22 16: Immature Gran % (Auto) 0.5 % 10/21/22 16: Neut % (Auto) 61.5 % 10/21/22 16: Lymph % (Auto) 25.3 % 10/21/22 16:28 Centre % (Auto) 9.7 % 10/21/22 16:28 Eos % (Auto) 2.6 % 10/21/22 16: Baso % (Auto) 0.4 % 10/21/22 16: Neut # (Auto) 7.07 K/uL (1.40-6.50) H 10/21/22 16:28 Lymph # (Auto) 2.91 K/uL (1.2-3.4) 10/21/22 16:28 Centre # (Auto) 1.12 K/uL (0.11-0.59) H 10/21/22 16:28 Eos # (Auto) 0.30 K/uL (0-0.50) 10/21/22 16:28 Baso # (Auto) 0.05 K/uL (0-0.2) 10/21/22 16: Immature Gran # (Auto) 0.06 K/uL (0.01-0.20) 10/21/22 16:28 PT 11.4 Seconds (9.0-12.0) 10/21/22 16:28 INR 1.0 (0.9-1.1) 10/21/22 16:28 APTT 28.9 Seconds (21.0-31.0) 10/21/22 16:28 PTT Ratio 1.0 10/21/22 16:28 Sodium 139 mmol/L (136-145) 10/21/22 16:28 Potassium 4.1 mmol/L (3.5-5.1) 10/21/22 16:28 Chloride 107 mmol/L (98-107) 10/21/22 16:28 Carbon Dioxide 23 mmol/L (21-32) 10/21/22 16:28 Anion Gap 9 (3-11) 10/21/22 16:28 BUN 28 mg/dl (6-23) H 10/21/22 16:28 Creatinine 1.15 mg/dl (0.6-1.4) 10/21/22 16:28 Est Cr Clr Drug Dosing 39.2 ml/min 10/21/22 16:28 Est GFR ( Amer) 71.7 ml/min 10/21/22 16:28 Est GFR (Non-Af Amer) 61.9 ml/min 10/21/22 16:28 BUN/Creatinine Ratio 24.3 (10-20) H 10/21/22 16:28 Glucose 78 mg/dl (70-99(Fasting)) 10/21/22 16:28 Calcium 9.5 mg/dl (8.6-10.3) 10/21/22 16:28 Total Bilirubin 0.8 mg/dl (0.2-1.0) 10/21/22 16:28 AST 22 U/L (13-39) 10/21/22 16:28 ALT 13 U/L (7-52) 10/21/22 16:28 Alkaline Phosphatase 73 U/L (34-104) 10/21/22 16:28 Troponin I High Sens 43.2 pg/ml (0-20) H 10/21/22 16:28 B-Natriuretic Peptide 2634 pg/ml (0-100) H 10/21/22 17:03 Total Protein 7.8 gm/dl (6.0-8.3) 10/21/22 16:28 Albumin 4.4 gm/dl (3.4-5.0) 10/21/22 16:28 Globulin 3.4 gm/dl (2.5-4.0) 10/21/22 16:28 Albumin/Globulin Ratio 1.3 (0.9-2) 10/21/22 16:28 Urine Color Yellow 10/21/22 18:43 Urine Appearance Clear (Clear) 10/21/22 18:43 Urine pH 5.0 (4.5-7.5) 10/21/22 18:43 Ur Specific Moran 1.019 (1.000-1.030) 10/21/22 18:43 Urine Protein 3+ (Negative) H 10/21/22 18:43 Urine Glucose (UA) Negative (Negative) 10/21/22 18:43 Urine Ketones 1+ (Negative) H 10/21/22 18:43 Urine Blood 2+ (Negative) H 10/21/22 18:43 Urine Nitrite Negative (Negative) 10/21/22 18:43 Urine Bilirubin Negative (Negative) 10/21/22 18:43 Urine Urobilinogen Negative (Negative) 10/21/22 18:43 Ur Leukocyte Esterase Trace (Negative) H 10/21/22 18:43 Urine WBC (Auto) 1-5 /hpf (0-5) 10/21/22 18:43 Urine RBC (Auto) 5-10 /hpf (0-4) H 10/21/22 18:43 U Hyaline Cast (Auto) 1-5 /lpf (0-5) 10/21/22 18:43 U Epithel Cells (Auto) 5-10 /lpf (0-5) H 10/21/22 18:43 Urine Bacteria (Auto) Negative (Negative) 10/21/22 18:43 Valproic Acid 49 mcg/ml (50-100) L 10/21/22 17:03 Adenovirus (PCR) Not Detected (NotDetected) 10/21/22 17:07 B. pertussis DNA (PCR) Not Detected (NotDetected) 10/21/22 17:07 B.parapertussis DNA PCR Not Detected (NotDetected) 10/21/22 17:07 C. pneumoniae DNA (PCR) Not Detected (NotDetected) 10/21/22 17:07 Coronavirus OC43 (PCR) Not Detected (NotDetected) 10/21/22 17:07 Coronavirus HKU1 (PCR) Not Detected (NotDetected) 10/21/22 17:07 Coronavirus 229E (PCR) Not Detected (NotDetected) 10/21/22 17:07 SARS-CoV-2 (PCR) Not Detected (NotDetected) 10/21/22 17:07 Coronavirus NL63 (PCR) Not Detected (NotDetected) 10/21/22 17:07 Human Metapneumovir PCR Not Detected (NotDetected) 10/21/22 17:07 Influenza Type A (PCR) Not Detected (NotDetected) 10/21/22 17:07 Influenza Type B (PCR) Not Detected (NotDetected) 10/21/22 17:07 M. pneumoniae (PCR) Not Detected (NotDetected) 10/21/22 17:07 Parainfluenza 1 (PCR) Not Detected (NotDetected) 10/21/22 17:07 Parainfluenza 2 (PCR) Not Detected (NotDetected) 10/21/22 17:07 Parainfluenza 3 (PCR) Not Detected (NotDetected) 10/21/22 17:07 Parainfluenza 4 (PCR) Not Detected (NotDetected) 10/21/22 17:07 RSV (RT-PCR) Negative (Neg) 10/21/22 16:35 RSV (PCR) Not Detected (NotDetected) 10/21/22 17:07 Entero/Rhino (PCR) Not Detected (NotDetected) 10/21/22 17:07 Impressions Chest X-Ray 10/21/22 16:03 XR chest 1V portable CLINICAL HISTORY: Chest pain, nonspecific COMPARISON STUDY: Chest radiograph May 13, 2022. FINDINGS: Median sternotomy wires and prosthetic aortic valve are incidentally noted. There is no pneumothorax. There is a small to moderate left pleural effusion and a trace right pleural effusion. Interstitial thickening and airspace opacities are slightly greater within the left lung. Patient is rotated. IMPRESSION: 1. Interstitial thickening and airspace opacities, as described above. The findings favor pulmonary edema. Pneumonia could appear similar. Radiographic follow up is recommended. 2. Small to moderate left and trace right pleural effusions. ACT 112: Negative or not required by law. Electronically signed by: Pk Lopez M.D. 10/21/2022 5:06 PM Venous Doppler Study 10/21/22 16:53 US venous doppler LE RT HISTORY: 77 years-old Male rle swelling acute pain and swelling of the right lower leg COMPARISON: 06/04/2018 TECHNIQUE: Multiple real-time sonographic images of the right lower extremity deep venous structures were obtained assessing grayscale appearance, color and spectral flow. FINDINGS: Normal flow, compressibility, phasicity and augmentation. IMPRESSION: No sonographic evidence of deep venous thrombosis. ACT 112: Negative or not required by law. The above report was generated using voice recognition software. It may contain grammatical, syntax or spelling errors. Electronically signed by: Garrett Silva M.D. 10/21/2022 5:[address] 10/21/22 18:00 Exam(s): CT CHEST With Contrast IV Amt: 84ml OPTIRAY 320 EXAM: CT Chest With Intravenous Contrast CLINICAL HISTORY: Reason for exam: sob hypoxic. TECHNIQUE: Axial computed tomography images of the chest with intravenous contrast. CTDI is 4.19 mGy and DLP is 135.97 mGy-cm. Automated exposure control was utilized for the study. A dose lowering technique was utilized adhering to the principles of ALARA. CONTRAST: Patient received 84ml OPTIRAY 320 of IV contrast COMPARISON: CT chest 03/19/17 FINDINGS: Patient is status post midline sternotomy and aortic valve replacement. Heart is enlarged. Coronary arteries are calcified. There is no pericardial effusion or right ventricular strain. Enlarged AP window lymph nodes measure up to 14 mm short axis. Thoracic aorta demonstrates scattered calcific plaque without aneurysm or dissection. Main pulmonary artery is normal in caliber. There are small left and moderate right pleural effusions. There is no pneumothorax. Bilateral septal thickening is present. Alveolar airspace opacities are present in the left upper lobe. There is patchy subsegmental atelectasis bilaterally. No masses identified. Chronic-appearing compression fractures are present at T4 and T6. No acute osseous findings are visualized. IMPRESSION: 1. Moderate right and small left pleural effusions. 2. Pulmonary edema. 3. Patchy alveolar opacities in the left upper lobe, most likely alveolar edema, but pneumonia not excluded. Correlate clinically. 4. Enlarged AP window lymph nodes may be reactive or may be due to edema. Electronically signed by: Adilene Das M.D. 10/21/22 19:22 PM
[2022-10-21 19:06] LABS: Appearance Urine Clear (Clear); Bacteria Urine Automated Negative (Negative); Bilirubin Urine Negative (Negative); Blood Urine 2+ (Negative); Color Urine Yellow; Glucose Urine UA Negative (Negative); Ketones Urine 1+ (Negative); Leukocyte Esterase Urine Trace (Negative); Nitrite Urine Negative (Negative); Protein Urine 3+ (Negative); Specific Gravity Urine 1.019 (1.000-1.030); Urobilinogen Urine Negative (Negative)
[2022-10-21] MEDS ORDERED: OPTIRAY 320 100ml IV ONE (19:07)
--- NOTE | 2022-10-21 19:23 | CT Scan Report ---
Exam(s): CT CHEST With Contrast IV Amt: 84ml OPTIRAY 320 EXAM: CT Chest With Intravenous Contrast CLINICAL HISTORY: Reason for exam: sob hypoxic. TECHNIQUE: Axial computed tomography images of the chest with intravenous contrast. CTDI is 4.19 mGy and DLP is 135.97 mGy-cm. Automated exposure control was utilized for the study. A dose lowering technique was utilized adhering to the principles of ALARA. CONTRAST: Patient received 84ml OPTIRAY 320 of IV contrast COMPARISON: CT chest 03/19/17 FINDINGS: Patient is status post midline sternotomy and aortic valve replacement. Heart is enlarged. Coronary arteries are calcified. There is no pericardial effusion or right ventricular strain. Enlarged AP window lymph nodes measure up to 14 mm short axis. Thoracic aorta demonstrates scattered calcific plaque without aneurysm or dissection. Main pulmonary artery is normal in caliber. There are small left and moderate right pleural effusions. There is no pneumothorax. Bilateral septal thickening is present. Alveolar airspace opacities are present in the left upper lobe. There is patchy subsegmental atelectasis bilaterally. No masses identified. Chronic-appearing compression fractures are present at T4 and T6. No acute osseous findings are visualized. IMPRESSION: 1. Moderate right and small left pleural effusions. 2. Pulmonary edema. 3. Patchy alveolar opacities in the left upper lobe, most likely alveolar edema, but pneumonia not excluded. Correlate clinically. 4. Enlarged AP window lymph nodes may be reactive or may be due to edema. Electronically signed by: Adilene Das M.D. 10/21/22 19:22 PM
[2022-10-21] MEDS ORDERED: NITROGLYCERIN SL 0.4 MG/TAB TAB SL PRN (21:07)
[2022-10-21] MEDS ORDERED: ACETAMINOPHEN 325 MG TAB PO PRN (21:07)
[2022-10-21] MEDS ORDERED: GLUCAGON FOR INJ 1 MG VIAL SQ PRN (21:07)
[2022-10-21] MEDS ORDERED: DEXTROSE 50% 50 ML SYRINGE IV PRN (21:07)
[2022-10-21] MEDS ORDERED: GLUCOSE 10 TAB/TUBE PO PRN (21:07)
[2022-10-21] MEDS ORDERED: GLUCOSE 40% GEL 15 GM TUBE PO PRN (21:07)
[2022-10-21] MEDS ORDERED: CARBOHYDRATES FOR HYPOGLYCEMIA PO PRN (21:07)
[2022-10-21] MEDS: HEPARIN SOD 5,000 UNIT/0.5 ML VIAL SQ SCH (21:57)
[2022-10-21] MEDS: cefTRIAXone SODIUM 2,000 MG in DEXTROSE 5% 50 ML IV SCH (21:57)
[2022-10-21] MEDS: amLODIPine BESYLATE 5 MG TAB PO SCH (21:58)
[2022-10-21] MEDS: METOPROLOL SUCC 25MG EXT REL TAB PO SCH (21:58)
[2022-10-21] MEDS: DIVALPROEX EXTENDED RELEASE 500 MG TAB PO SCH (21:59)
[2022-10-21] MEDS: DOXYCYCLINE HYCLATE 100 MG in DEXTROSE 5% 100 ML IV SCH (22:10)
[2022-10-21] MEDS: LANTUS PER UNIT CHARGE SQ SCH (22:23)
[2022-10-21] MEDS: INSULIN ASPART PER UNIT CHARGE SC SCH (22:23)
[2022-10-22] MEDS ORDERED: LEVOTHYROXINE SODIUM 125 MCG TABLET PO SCH (06:30)
--- NOTE | 2022-10-22 07:10 | Electrocardiogram Report ---
Test Reason : Blood Pressure : / mmHG Vent. Rate : 069 BPM Atrial Rate : 069 BPM P-R Int : 144 ms QRS Dur : 090 ms QT Int : 432 ms P-R-T Axes : 033 -41 150 degrees QTc Int : 462 ms Normal sinus rhythm Possible Left atrial enlargement Left axis deviation Left ventricular hypertrophy Prolonged QT Abnormal ECG When compared with ECG of 21-OCT-2022 16:27, Vent. rate has decreased BY 45 BPM Confirmed by Tom Arizmendi ([id number]) on 10/22/2022 7:09:25 AM Referred By: REFERRED SELF Confirmed By:Vance Arizmendi
[2022-10-22 07:40] LABS: Estimated Average Glucose 117 mg/dl; Hemoglobin A1C 5.7 % (4.5-5.6)
[2022-10-22] MEDS: INSULIN ASPART PER UNIT CHARGE SC SCH ×4 (07:40→20:17)
[2022-10-22] MEDS: DIVALPROEX EXTENDED RELEASE 500 MG TAB PO SCH ×2 (08:58→20:14)
[2022-10-22] MEDS: FUROSEMIDE 40 MG/4 ML VIAL IV SCH ×2 (09:04→16:52)
[2022-10-22] MEDS: HEPARIN SOD 5,000 UNIT/0.5 ML VIAL SQ SCH ×2 (09:04→20:14)
[2022-10-22] MEDS: DOXYCYCLINE HYCLATE 100 MG in DEXTROSE 5% 100 ML IV SCH ×2 (09:04→20:15)
--- NOTE | 2022-10-22 09:13 | Cardiology Consultation ---
Date of Consultation October 22, 2022 Assessment & Plan (1) Acute HFrEF (heart failure with reduced ejection fraction): (2) Pleural effusion: Plan - Patient presents with hypoxia, right greater than left pleural effusions, clinical, radiographic evidence consistent with congestive heart failure. Echocardiogram reveals a subtle decline in left ventricular systolic function compared to 6 months ago. 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 Transthoracic echocardiogram performed today suggests at least moderate prosthetic aortic regurgitation which was not present at the time of the KRYSTAL study in 2019, but noticed the time of the transthoracic study May, per my review of the images, and again today. -Patient appears frail, borderline cachectic. No objective or subjective fevers. For completeness we will check a blood cultures including fungal cultures, ESR, CRP. -Patient received furosemide 40 mg at just after 6 PM last night and another dose this morning at 9 AM. -Agree with keeping Osman catheter in place, monitoring kidney function electrolytes during diuresis. Pulmonary input noted and appreciated. If patient does not improve clinically and if pleural effusion does not improve radiographically with diuretic therapy could consider thoracentesis, but I think it is too early to proceed with this now favor a trial of diuretics. -Patient with noted elevation in his high-sensitivity troponin which was 43.2 PG per mL upon presentation and 57.2 upon repeat last evening at 2013. EKG reveals new T wave inversions in the anterior precordial leads compatible with ischemia. While he do not think his presentation is suggestive of an acute coronary syndrome being the primary driving force to his acute presentation, underlying coronary heart disease is certainly a contributing cause. -Patient without symptoms to suggest recurrent unstable angina. We will plan on a repeat troponin level tomorrow. -DVT prophylaxis: Agree with subcutaneous heparin. History of Present Illness Attending Physician: Carlos Murillo MD History of Present Illness Oz Brady is a 77-year-old male seen in cardiology consultation per the request of Dr. Amezcua for the evaluation of shortness of breath and clinical concerns of congestive heart failure. Patient describes progressive shortness of breath over the last month, acutely worse over the last 3 days. Oxygen saturation was 85% on room air upon arrival to the emergency room yesterday, and a significant oxygen requirement is still ongoing with pulse oximetry 95% on 5 L nasal cannula at the time of my evaluation today in room 210. Patient appears frail and cachectic. Other than describing that he is short of breath, he is unable to provide additional helpful history. 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 Patient is known to the undersigned having followed him as an outpatient. His past cardiac history is notable for a minimally invasive bioprosthetic aortic valve replacement utilizing a 21 millimeter magna prosthesis on 12/21/2012 at [facility] performed by Dr. Florez for treatment of severe aortic valve stenosis . Preop cardiac catheterization in October 2012 demonstrated mild diffuse nonobstructive coronary disease. 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 In late 2017, early 2018 he had been admitted on two separate occasions locally and transferred to [facility]. A transesophageal echocardiogram performed at [facility] in April 2018 demonstrated no vegetation and normal functioning AVR. 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 He was readmitted however for back pain and sepsis and diagnosed with the diskitis and osteomyelitis in June 2018. He completed 6 weeks of IV antibiotics in August,. Allergies Allergy/AdvReac Type Severity Reaction Status Date / Time amoxicillin AdvReac Intermediate SHAKES/CHILLS/FLU-LIKE Verified 10/21/22 20:42 SYMPTOMS duloxetine [From Cymbalta] AdvReac Intermediate Hypertensio Verified 10/21/22 20:42 n Influenza Virus Vaccines AdvReac Intermediate MUSCLE Verified 10/21/22 20:42 PAIN/COUGH/PAIN IN FEET sirolimus AdvReac Intermediate ABD Verified 10/21/22 20:42 PAIN/DIARRHEA/EDEMA Home Medications Medication Instructions Recorded Confirmed Type acetaminophen 500 mg tablet 500 mg PO QID PRN Pain 07/10/18 10/21/22 History (Tylenol Extra Strength) metoprolol succinate 25 mg 12.5 mg PO HS 08/17/20 10/21/22 History tablet,extended release 24 hr (Toprol XL) amlodipine 5 mg tablet (Norvasc) 5 mg PO HS 06/03/21 10/21/22 History bevacizumab 25 mg/mL intravenous See Rx Instructions intravitreal 08/23/21 10/21/22 Rx solution (Avastin) .COMPLEX #4 mL insulin glargine 100 unit/mL (3 6 unit subcut HS 05/13/22 10/21/22 History mL) subcutaneous pen (Lantus Solostar U-100 Insulin) Tirosint 125 mcg capsule 125 mcg PO DAILY #30 caps 09/23/22 10/21/22 Rx (levothyroxine) divalproex 500 mg tablet,extended 500 mg PO BID 90 days #180 tabs 10/03/22 10/21/22 Rx release 24 hr L.acidophil-L.casei-B.bifid-B.longum-FOS 1 cap PO BID 10/21/22 10/21/22 History 2 billion cell-50 mg capsule (Probiotic Blend) cephalexin 500 mg capsule 2,000 mg PO DIRECTED PRN PRIOR 10/21/22 10/21/22 History TO DENTAL PROCEDURES Patient History Medical History 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 Anemia of chronic disease Hgb 11-13 over past 6 months Aortic valve disease H/o aortic stenosis s/p prosthetic valve replacement (2012) CAD (coronary artery disease) diffuse non-obstructive on 2012 cath per [facility] cardio records Chronic renal disease, stage 3, moderately decreased glomerular filtration rate (GFR) between 30-59 mL/min/1.73 square meter COVID-19 06/2020 Diabetes type 2, controlled IDDM Heart failure chronic right-sided HF per [facility] records, EF 55-59% History of blood transfusion multiple during chemo History of pneumonia 06/2021 History of stroke 2017 ([facility]) > transferred to [place], testing showed endocarditis etiology Residual effects: MCI per record, Slowed speech, slight occasional right sided mouth droop, right side weakness Hypothyroidism IBS (irritable bowel syndrome) Kidney stones Parotid tumor 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 No postop issues per anesthesia progress note. History of back surgery h/o osteomyelitis/discitis s/p lumbar laminectomy History of colonoscopy History of cystoscopy 2018 History of surgery PAROTID X2 History of surgery PEG TUBE AND SINCE REMOVED History of vascular access device INSERTION AND REMOVAL Family History Father , age 85 No problems noted. Mother , age 79 No problems noted. 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 How many Children do You have: 3 Other Information That Helps Us Care for You: No Feels Safe at Home: Yes Safety Concerns: Feels Safe At This Time Assistive Devices: Cane and Walker Review of Systems Review of Systems: All systems reviewed & are unremarkable except as noted in HPI & below Physical Exam Constitutional: + ill appearing and + cachectic Respiratory: Auscultation: + diminished lung sounds (Decreased breath sounds at the bases right worse than left ) Cardiovascular: Rate/Rhythm: regular rate and regular rhythm Heart Sounds: + murmur (I/ SM, I/ diastolic murmur) Extremities: no edema Gastrointestinal (Abdomen): normal bowel sounds, soft, nontender, no hepatosplenomegaly Neurologic: PERRL, EOMI, accommodation nl, no face palsy, no dysarthria Genitourinary: Osman catheter in place draining clear yellow urine Results & Data Vital Signs (Past 12 Hours) Vital Signs Temp Pulse Pulse Resp BP Pulse Ox O2 Del Method 05/20/23 08:09 36.5 C 87 20 105/49 L 96 Nasal Cannula 10/22/22 04:54 36.7 C 69 20 122/59 L 95 Nasal Cannula 10/21/22 23:58 36.8 C 89 16 137/67 95 Nasal Cannula 10/21/22 23:00 36.8 C 89 16 137/67 95 Nasal Cannula 10/21/22 23:10 Nasal Cannula, BiPAP 10/21/22 22:44 81 27 H 100 10/21/22 21:55 36.8 C 81 20 132/72 100 BiPAP O2 Flow Rate FiO2 10/22/22 08:09 5 10/22/22 04:54 5 10/21/22 23:58 5 10/21/22 23:00 5 10/21/22 23:10 10/21/22 22:44 40 10/21/22 21:55 Laboratory Results Cardiac Enzymes 10/21/22 10/21/22 10/21/22 Range/Units 16:28 17:03 20:14 AST 22 (13-39) U/L Troponin I High Sens 43.2 H 57.2 H* D (0-20) pg/ml B-Natriuretic Peptide 2634 H (0-100) pg/ml Coagulation 10/21/22 10/21/22 Range/Units 16:28 17:03 PT 11.4 (9.0-12.0) Seconds APTT 28.9 (21.0-31.0) Seconds B-Natriuretic Peptide 2634 H (0-100) pg/ml CBC 10/21/22 Range/Units 16:28 WBC 11.51 H (4.8-10.8) K/ul RBC 4.33 L (4.70-6.10) M/uL Hgb 12.9 L (14.0-18.0) g/dl Hct 39.0 L (42.0-52.0) % Plt Count 159 (130-400) K/uL Neut # (Auto) 7.07 H (1.40-6.50) K/uL Lymph # (Auto) 2.91 (1.2-3.4) K/uL [place] # (Auto) 1.12 H (0.11-0.59) K/uL Eos # (Auto) 0.30 (0-0.50) K/uL Baso # (Auto) 0.05 (0-0.2) K/uL Comprehensive Metabolic Panel 10/21/22 Range/Units 16:28 Sodium 139 (136-145) mmol/L Potassium 4.1 (3.5-5.1) mmol/L Chloride 107 (98-107) mmol/L Carbon Dioxide 23 (21-32) mmol/L BUN 28 H (6-23) mg/dl Creatinine 1.15 (0.6-1.4) mg/dl Glucose 78 (70-99(Fasting)) mg/dl Calcium 9.5 (8.6-10.3) mg/dl AST 22 (13-39) U/L ALT 13 (7-52) U/L Alkaline Phosphatase 73 (34-104) U/L Total Protein 7.8 (6.0-8.3) gm/dl Albumin 4.4 (3.4-5.0) gm/dl Intake and Output 10/21/22 10/22/22 10/22/22 22:59 06:59 14:59 Intake Total 180 / 180 Output Total 600 / 1300 700 / 1300 Balance -600 / -1120 -520 / -1120 Intake: IV 180 / 180 Doxycycline Hyclate 100 mg In 110 / 110 Dextrose 5% 100 ml @ 50 mls/hr IV Q12H PENDING SALE TO [facility] Rx#:[id number] cefTRIAXone SODIUM 2,000 mg In 70 / 70 Dextrose 5% 50 ml @ 100 mls/hr IV Q24H PENDING SALE TO [facility] Rx#:[id number] Output: Urine Amount (Catheter) 600 / 1300 700 / 1300 Osman/Indwelling 600 / 1300 700 / 1300 Other: Weight 49.9 kg 46.5 kg Weight Measurement Method Chair Scale Built in [facility] Diagnostic Findings Echocardiogram performed 10/21/2022 at 1627 and interpret independently: Sinus tachycardia 114 bpm, possible left atrial lodgment, left ventricular hypertrophy suggested by voltage criteria, ST-T wave abnormality suggestive of possible lateral ischemia. Compared to the previous dated back to 05/13/2022, ventricular rate has increased by 41 bpm, T wave changes more evident in lateral leads. Repeat tracing performed 10/22/2022 at 4:39 AM: Interpreted independently normal sinus rhythm at 69 bpm, interval development of prominent lateral T wave inversions in the precordial leads and V4 to V6 as well as bilateral leads I and aVL. Summary of transthoracic echocardiogram performed today 10/22/2022 and interpreted independently: The study is technically adequate for the evaluation of the referral indication. There is moderate concentric left ventricular hypertrophy. Borderline to mild diffuse global left ventricular hypokinesis is present. Left ventricular systolic function is mildly reduced. The LV Ejection Fraction = 45-50%. The right ventricle is normal in size and function. The left atrium is moderately dilated. There is a bioprosthetic aortic valve. The prosthetic valve leaflets are relatively well visualized. The leaflets are moderately thickened, but appear to open normally. Prosthetic stenosis is absent. At least moderate prosthetic regurgitation is present. There is mild mitral regurgitation. There is mild tricuspid regurgitation. Mild pulmonary hypertension is present. The pulmonary systolic pressure is estimated be 45 mmHg. Diastolic dysfunction, Grade II (pseudonormalization pattern). Compared to the images obtained at the time of the previous transthoracic study dated 05/14/2022, there has been interval subtle decline in the left ventricular systolic dysfunction, grade II diastolic dysfunction is now noted as compared to grade I. Prosthetic aortic valve regurgitation present at the time of that study as well. Compared to the images obtained at the time of the transesophageal echocardiogram performed 02/25/2019, no significant prosthetic aortic valve regurgitation was appreciated at that time. Chest x-ray and CT images reviewed independently revealing moderate right pleural effusion small left pleural effusion
--- NOTE | 2022-10-22 09:51 | Pulmonary Consultation ---
Date of Consultation October 22, 2022 Assessment & Plan (1) Shortness of breath: (2) Pleural effusion: (3) Acute respiratory failure with hypoxia: Plan Hypoxia is likely multifactorial related to acute on chronic diastolic heart failure, possible component of atypical pneumonia and deconditioning. He does have right greater than left pleural effusion which is likely secondary to volume overload. Agree with empiric diuresis and then consideration of thoracentesis in the near future if no improvement of symptoms or oxygen saturations. Agree with empiric antibiotics for 48 hours. Recheck procalcitonin tomorrow. If Pro-Gabriel is negative again, consider discontinuation of cefepime to complete a course of 5 days of doxycycline. Appreciate cardiology input. Thank you for allowing me to participate in the care of the patient. Please call with questions. History of Present Illness Reason for Consultation: Hypoxia Attending Physician: Carlos Murillo MD History of Present Illness 77-year-old male with a history of bioprosthetic aortic valve, diffuse nonobstructive coronary artery disease, AML status post bone marrow transplant, diabetes mellitus type 2, CKD stage III and hypothyroidism who presented due to shortness of breath. He endorses some mild shortness of breath today. Oxygen saturation at home was 81% on room air. Patient also notes cough with sputum production. He felt a low-grade temperature but did not check his temperature. He is currently on Lasix 40 mg twice daily, doxycycline and ceftriaxone. He is saturating 96% on [address] chest performed yesterday revealed bilateral airspace opacities left greater than right and bilateral effusions, right greater than left. Echo 05/13/2022 with grade 2 diastolic dysfunction and normal EF. BNP this admission elevated to 2634. Pro-Gabriel was unremarkable at 0.13. Dyspneic with minimal conversation. I wean his supplemental oxygen to 2 L and he was saturating in the low 90s. He denies chest pain. Endorses subjective fevers, but did not check his temperature. Allergies Allergy/AdvReac Type Severity Reaction Status Date / Time amoxicillin AdvReac Intermediate SHAKES/CHILLS/FLU-LIKE Verified 10/21/22 20:42 SYMPTOMS duloxetine [From Cymbalta] AdvReac Intermediate Hypertensio Verified 10/21/22 20:42 n Influenza Virus Vaccines AdvReac Intermediate MUSCLE Verified 10/21/22 20:42 PAIN/COUGH/PAIN IN FEET sirolimus AdvReac Intermediate ABD Verified 10/21/22 20:42 PAIN/DIARRHEA/EDEMA Home Medications Medication Instructions Recorded Confirmed Type acetaminophen 500 mg tablet 500 mg PO QID PRN Pain 07/10/18 10/21/22 History (Tylenol Extra Strength) metoprolol succinate 25 mg 12.5 mg PO HS 08/17/20 10/21/22 History tablet,extended release 24 hr (Toprol XL) amlodipine 5 mg tablet (Norvasc) 5 mg PO HS 06/03/21 10/21/22 History bevacizumab 25 mg/mL intravenous See Rx Instructions intravitreal 08/23/21 10/21/22 Rx solution (Avastin) .COMPLEX #4 mL insulin glargine 100 unit/mL (3 6 unit subcut HS 05/13/22 10/21/22 History mL) subcutaneous pen (Lantus Solostar U-100 Insulin) Tirosint 125 mcg capsule 125 mcg PO DAILY #30 caps 09/23/22 10/21/22 Rx (levothyroxine) divalproex 500 mg tablet,extended 500 mg PO BID 90 days #180 tabs 10/03/22 10/21/22 Rx release 24 hr L.acidophil-L.casei-B.bifid-B.longum-FOS 1 cap PO BID 10/21/22 10/21/22 History 2 billion cell-50 mg capsule (Probiotic Blend) cephalexin 500 mg capsule 2,000 mg PO DIRECTED PRN PRIOR 10/21/22 10/21/22 History TO DENTAL PROCEDURES Patient History Medical History 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 Anemia of chronic disease Hgb 11-13 over past 6 months Aortic valve disease H/o aortic stenosis s/p prosthetic valve replacement (2012) CAD (coronary artery disease) diffuse non-obstructive on 2012 cath per [facility] cardio records Chronic renal disease, stage 3, moderately decreased glomerular filtration rate (GFR) between 30-59 mL/min/1.73 square meter COVID-19 06/2020 Diabetes type 2, controlled IDDM Heart failure chronic right-sided HF per [facility] records, EF 55-59% History of blood transfusion multiple during chemo History of pneumonia 06/2021 History of stroke 2017 ([facility]) > transferred to [place], testing showed endocarditis etiology Residual effects: MCI per record, Slowed speech, slight occasional right sided mouth droop, right side weakness Hypothyroidism IBS (irritable bowel syndrome) Kidney stones Parotid tumor 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 No postop issues per anesthesia progress note. History of back surgery h/o osteomyelitis/discitis s/p lumbar laminectomy History of colonoscopy History of cystoscopy 2017 History of surgery PAROTID X2 History of surgery PEG TUBE AND SINCE REMOVED History of vascular access device INSERTION AND REMOVAL Family History Father , age 85 No problems noted. Mother , age 79 No problems noted. 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 Patient is in no apparent distress. Patient is well-developed. Eyes: Pupils are equal round and reactive to light. Conjunctivae are normal. Anicteric sclera. Ears nose, mouth and throat: Mallampati class 1. Normal posterior oropharynx. Uvula is midline. Neck: Trachea is midline. Visual inspection is normal. Respiratory: Crackles at the bases bilaterally. Cardiovascular: Regular rate and rhythm. No murmurs. No edema. Gastrointestinal: Normal bowel sounds, soft, nontender and nondistended. No hepatosplenomegaly noted. Musculoskeletal: No cyanosis. Patient is able to move all extremities. Strength is 5 out of 5 in the upper and lower extremities. Skin: No rashes, warm dry and intact. Neurologic: No obvious focal neurological deficits seen. Psychiatric: Alert and oriented x3 with a euthymic affect. Results & Data Results & Data Vital Signs (Past 12 Hours) Vital Signs Temp Pulse Pulse Resp BP Pulse Ox O2 Del Method 10/22/22 08:09 36.5 C 87 20 105/49 L 96 Nasal Cannula 10/22/22 04:54 36.7 C 69 20 122/59 L 95 Nasal Cannula 10/21/22 23:58 36.8 C 89 16 137/67 95 Nasal Cannula 10/21/22 23:00 36.8 C 89 16 137/67 95 Nasal Cannula 10/21/22 23:10 Nasal Cannula, BiPAP 10/21/22 22:44 81 27 H 100 10/21/22 21:55 36.8 C 81 20 132/72 100 BiPAP O2 Flow Rate FiO2 10/22/22 08:09 5 10/22/22 04:54 5 10/21/22 23:58 5 10/21/22 23:00 5 10/21/22 23:10 10/21/22 22:44 40 10/21/22 21:55 PG Care Time/CCT Total # of Minutes Spent Total Time Spent with Patient: Total time spent is greater than 50% in coordination of care (as documented) at patient's floor/unit and/or counseling patient: Coding Level of Care Code 49036 INT INP/OBS CARE 2/55MIN Diagnoses Shortness of breath R06.02 Pleural effusion J90 Acute respiratory failure with hypoxia J96.01
[2022-10-22 12:18] LABS: C Reactive Protein 9.77 mg/dl (0-0.5)
[2022-10-22 12:33] LABS: Troponin I High Sensitivity 46.1 pg/ml (0-20)
--- NOTE | 2022-10-22 13:05 | Hospitalist Progress Note ---
Date of Service October 22, 2022 Assessment & Plan (1) Acute respiratory failure with hypoxia: (2) Pleural effusion: (3) Acute on chronic diastolic (congestive) heart failure: Plan Acute on chronic diastolic heart failure Possible pneumonia with pleural effusion/likely sepsis POA: RR and HR elevated w/ possible pna. Acute hypoxic respiratory failure Presented with shortness of breath for 3 days associated with low-grade fever at home. At admission, leukocytosis +, BNP elevation +, EKG w/ sinus Tach and TWI (TWI more prominent in f/u EKG) Chest x-ray shows pulm edema with a small to moderate bilateral pleural effusion. CT Chest: Consistent with pulmonary edema versus pneumonia. Moderate right and small left pleural effusions. Echo with EF of 45 to 50%, grade 2 diastolic dysfunction, borderline to mild diffuse global left ventricular hypokinesis present Continue with Rocephin and doxycycline for possible pneumonia. Pulm evaled, will get procal repeat in AM. Appreciate recs. Strict I's and O's, Osman cath in. Patient requiring 5 L nasal cannula oxygen. Cardio on board, being diuresed. Monitor renal fxn, replete lytes as appropriate, f/u blood cultures. Elevated troponin/likely demand ischemia: 2/2 acute process (above). Pt w/ no chest pain. c/w tele monitoring. ECHO and EKG reviewed. Chronic conditions; Hypertensioncontinue amlodipine and metoprolol. Type 2 diabetes mellituscontinue on Lantus and NovoLog Seizure disordercontinue on sodium valproate CKDcreatinine at baseline. Avoid nephrotoxic drugs. Acute myelogenous leukemia in remission Hypothyroidism: c/w levothyroxine, takes 137 mcg daily per OP chart review. Full code DVT prophylaxis heparin Admission and Anticipated Discharge Date Admission Date: October 21, 2022 Subjective Patient seen and examined at bedside as a follow-up of acute respiratory failure with hypoxia, pleural effusion, acute on chronic diastolic heart failure. Patient was lying in bed, on 5 L nasal cannula oxygen, NAD, reports no new acute event overnight, reports eating okay and moving bowels okay, reports shortness of breath somewhat improving. Patient denies chest pain or palpitation no headache or dizziness or sore throat. Physical Exam Physical Exam: GENERAL: Alert and oriented x3. NAD, on 5L NC O2, lean thin appearing HEENT: No pallor, no icterus. Pupils equal, round and reactive to light. Oral mucosa moist. NECK: No JVD, no neck masses. HEART: S1 and S2 heard. Regular rate and rhythm. Systolic murmur at A and P area, no gallop. RESPIRATORY SYSTEM: Normal AP diameter. No accessory muscle use. No wheezing, b/l mid and basal crackles. ABDOMEN: Soft, bowel sounds present, nontender, no distention. CENTRAL NERVOUS SYSTEM: No facial droop. Speech is clear. Obeys simple commands. Moves extremities. EXTREMITIES: trace ble edema, no erythema seen. Results & Data Results & Data Vital Signs (Past 12 Hours) Vital Signs Temp Pulse Pulse Resp BP Pulse Ox O2 Del Method 10/22/22 11:07 36.4 C L 75 20 120/60 94 Nasal Cannula 10/22/22 09:57 62 10/22/22 09:57 Nasal Cannula 10/22/22 08:09 36.5 C 87 20 105/49 L 96 Nasal Cannula 10/22/22 04:54 36.7 C 69 20 122/59 L 95 Nasal Cannula O2 Flow Rate 10/22/22 11:07 5 10/22/22 09:57 10/22/22 09:57 5 10/22/22 08:09 5 10/22/22 04:54 5
[2022-10-22] MEDS: METOPROLOL SUCC 25MG EXT REL TAB PO SCH (20:14)
[2022-10-22] MEDS: amLODIPine BESYLATE 5 MG TAB PO SCH (20:14)
[2022-10-22] MEDS: cefTRIAXone SODIUM 2,000 MG in DEXTROSE 5% 50 ML IV SCH (20:15)
[2022-10-22] MEDS: LANTUS PER UNIT CHARGE SQ SCH (20:16)
[2022-10-23 05:47] LABS: Hematocrit (blood only) 32.3 % (42.0-52.0); Hemoglobin 10.7 g/dl (14.0-18.0); Mean Corpuscular Hemoglobin 29.9 pg (25.0-34.0); Mean Corpuscular Hgb Conc 33.1 g/dL (32.0-36.0); Mean Corpuscular Volume 90.2 fL (80.0-100.0); Mean Platelet Volume 10.6 fL (9.4-12.4); Platelet Count 124 K/uL (130-400); RDW Coefficient of Variation 15.1 % (11.5-14.5); RDW Standard Deviation 50.4 fL (36.4-46.3); Red Blood Count 3.58 M/uL (4.70-6.10); White Blood Count 7.35 K/ul (4.8-10.8)
[2022-10-23] MEDS: LEVOTHYROXINE SODIUM 137 MCG TABLET PO SCH (05:50)
[2022-10-23 06:11] LABS: Albumin Globulin Ratio 1.2 (0.9-2); Albumin Level 3.2 gm/dl (3.4-5.0); BUN Creatinine Ratio 23.1 (10-20); Bilirubin,Total 0.3 mg/dl (0.2-1.0); Calcium 8.2 mg/dl (8.6-10.3); Creatinine Clr Calc Pharmacy 33.3 ml/min; Est GFR (African American) 59.6 ml/min; Est GFR (Non-African American) 51.5 ml/min; Globulin 2.7 gm/dl (2.5-4.0); Magnesium 1.8 mg/dl (1.7-2.4); Potassium 3.3 mmol/L (3.5-5.1); Total Protein 5.9 gm/dl (6.0-8.3); Troponin I High Sensitivity 38.6 pg/ml (0-20)
[2022-10-23] MEDS ORDERED: POTASSIUM CHLORIDE CRTAB 20 MEQ TABCR PO STA (06:37)
[2022-10-23] MEDS ORDERED: MAGNESIUM SULFATE / D5W 1 GM/100 ML BAG IV ONE (06:45)
--- NOTE | 2022-10-23 07:09 | Electrocardiogram Report ---
Test Reason : Blood Pressure : / mmHG Vent. Rate : 069 BPM Atrial Rate : 069 BPM P-R Int : 132 ms QRS Dur : 092 ms QT Int : 418 ms P-R-T Axes : 039 -46 140 degrees QTc Int : 447 ms Normal sinus rhythm Possible Left atrial enlargement Left anterior fascicular block Left ventricular hypertrophy Abnormal ECG When compared with ECG of 22-OCT-2022 04:39, No significant change was found Confirmed by Tom Arizmendi ([id number]) on 10/23/2022 7:08:52 AM Referred By: REFERRED SELF Confirmed By:Vance Arizmendi
[2022-10-23] MEDS: INSULIN ASPART PER UNIT CHARGE SC SCH ×4 (08:41→20:39)
[2022-10-23] MEDS: DIVALPROEX EXTENDED RELEASE 500 MG TAB PO SCH ×2 (08:55→19:53)
[2022-10-23] MEDS: HEPARIN SOD 5,000 UNIT/0.5 ML VIAL SQ SCH ×2 (08:55→19:53)
[2022-10-23] MEDS: FUROSEMIDE 40 MG/4 ML VIAL IV SCH ×2 (08:55→17:26)
[2022-10-23] MEDS: DOXYCYCLINE HYCLATE 100 MG in DEXTROSE 5% 100 ML IV SCH ×2 (08:55→20:42)
--- NOTE | 2022-10-23 11:08 | Pulmonology Progress Note ---
Date of Service October 23, 2022 Assessment & Plan (1) Shortness of breath: (2) Pleural effusion: (3) Acute respiratory failure with hypoxia: Plan Hypoxia is likely multifactorial related to acute on chronic diastolic heart failure, possible component of atypical pneumonia and deconditioning. He does have right greater than left pleural effusion which is likely secondary to volume overload. Hypoxemia appears to be improving with diuresis. Recommend continued diuresis. We will hold off on thoracentesis at this time. We will sign off at this time. Please recall with concerns or questions. Thank you for allowing us to participate in the care of this patient. Admission and Anticipated Discharge Date Admission Date: October 21, 2022 Subjective Patient feeling less short of breath today. Currently saturating in the low 90s on room air. He has not really been out of bed. He denies any chest pain. Minimal cough. No fevers. Review of Systems Review of Systems: All systems reviewed & are unremarkable except as noted in HPI & below Physical Exam Physical Exam: Constitutional: Patient appears to be of their stated age. Patient is in no apparent distress. Patient is well-developed. Eyes: Pupils are equal round and reactive to light. Conjunctivae are normal. Anicteric sclera. Ears nose, mouth and throat: Mallampati class 1. Normal posterior oropharynx. Uvula is midline. Neck: Trachea is midline. Visual inspection is normal. Respiratory: Crackles at the bases bilaterally. Cardiovascular: Systolic flow murmur. Regular rate and rhythm. No edema. Gastrointestinal: Normal bowel sounds, soft, nontender and nondistended. No hepatosplenomegaly noted. Musculoskeletal: No cyanosis. Patient is able to move all extremities. Strength is 5 out of 5 in the upper and lower extremities. Skin: No rashes, warm dry and intact. Neurologic: No obvious focal neurological deficits seen. Psychiatric: Alert and oriented x3 with a euthymic affect. Results & Data Results & Data Vital Signs (Past 12 Hours) Vital Signs Temp Pulse Pulse Resp BP Pulse Ox O2 Del Method 10/23/22 09:08 Nasal Cannula 10/23/22 09:07 64 10/23/22 07:15 36.5 C 62 18 127/67 97 Nasal Cannula 10/23/22 03:33 36.4 C L 75 16 139/68 98 Nasal Cannula O2 Flow Rate 10/23/22 09:08 2 10/23/22 09:07 10/23/22 07:15 2 10/23/22 03:33 2 PG Care Time/CCT Total # of Minutes Spent Total Time Spent with Patient: Total time spent is greater than 50% in coordination of care (as documented) at patient's floor/unit and/or counseling patient: Coding Level of Care Code 35346 SUB INP/OBS CARE 1/25MIN Diagnoses Shortness of breath R06.02 Pleural effusion J90 Acute respiratory failure with hypoxia J96.01
--- NOTE | 2022-10-23 16:06 | Hospitalist Progress Note ---
Date of Service October 23, 2022 Assessment & Plan (1) Acute respiratory failure with hypoxia: (2) Pleural effusion: (3) Acute on chronic diastolic (congestive) heart failure: Plan Acute on chronic diastolic heart failure Possible pneumonia with pleural effusion/likely sepsis POA: RR and HR elevated w/ possible pna. Acute hypoxic respiratory failure Presented with shortness of breath for 3 days associated with low-grade fever at home. At admission, leukocytosis +, BNP elevation +, EKG w/ sinus Tach and TWI (TWI more prominent in f/u EKG) Chest x-ray shows pulm edema with a small to moderate bilateral pleural effusion. CT Chest: Consistent with pulmonary edema versus pneumonia. Moderate right and small left pleural effusions. Echo with EF of 45 to 50%, grade 2 diastolic dysfunction, borderline to mild diffuse global left ventricular hypokinesis present Continue with Rocephin and doxycycline for possible pneumonia. Pulm evaled, appreciate recs. Strict I's and O's, Osman cath in. Patient requiring 2L nasal cannula oxygen. Cardio on board, being diuresed. Monitor renal fxn, replete lytes as appropriate, f/u blood cultures. Elevated troponin/likely demand ischemia: 2/2 acute process (above). Pt w/ no chest pain. c/w tele monitoring. ECHO and EKG reviewed. Chronic conditions; Hypertensioncontinue amlodipine and metoprolol. Type 2 diabetes mellituscontinue on Lantus and NovoLog Seizure disordercontinue on sodium valproate CKDcreatinine at baseline. Avoid nephrotoxic drugs. Acute myelogenous leukemia in remission Hypothyroidism: c/w levothyroxine, takes 137 mcg daily per OP chart review. Full code DVT prophylaxis heparin Admission and Anticipated Discharge Date Admission Date: October 21, 2022 Subjective Patient seen and examined at bedside as a follow-up of acute respiratory failure with hypoxia, pleural effusion, acute on chronic diastolic heart failure. Patient was lying in bed, on 2 L nasal cannula oxygen, NAD, reports no new acute event overnight, reports eating okay and moving bowels okay, reports shortness of breath improving. Patient denies chest pain or palpitation no headache or dizziness or sore throat. Pt reports cough at his baseline now. Physical Exam Physical Exam: GENERAL: Alert and oriented x3. NAD, on 2L NC O2, lean thin appearing HEENT: No pallor, no icterus. Pupils equal, round and reactive to light. Oral mucosa moist. NECK: No JVD, no neck masses. HEART: S1 and S2 heard. Regular rate and rhythm. Systolic murmur at A and P area, no gallop. RESPIRATORY SYSTEM: Normal AP diameter. No accessory muscle use. No wheezing, b/l mid and basal crackles. ABDOMEN: Soft, bowel sounds present, nontender, no distention. CENTRAL NERVOUS SYSTEM: No facial droop. Speech is clear. Obeys simple commands. Moves extremities. EXTREMITIES: trace ble edema, no erythema seen. Results & Data Results & Data Vital Signs (Past 12 Hours) Vital Signs Temp Pulse Pulse Resp BP Pulse Ox O2 Del Method 10/23/22 15:54 36.5 C 68 16 114/62 98 Nasal Cannula 10/23/22 11:30 36.9 C 73 20 131/71 97 Nasal Cannula 10/23/22 09:08 Nasal Cannula 10/23/22 09:07 64 10/23/22 07:15 36.5 C 62 18 127/67 97 Nasal Cannula O2 Flow Rate 10/23/22 15:54 2 10/23/22 11:30 2 10/23/22 09:08 2 10/23/22 09:07 10/23/22 07:15 2
--- NOTE | 2022-10-23 16:14 | Cardiology Progress Note ---
Date of Service October 23, 2022 Assessment & Plan (1) Acute HFrEF (heart failure with reduced ejection fraction): (2) Pleural effusion: Plan - Patient presents with hypoxia, right greater than left pleural effusions, clinical, radiographic evidence consistent with congestive heart failure. Echocardiogram reveals a subtle decline in left ventricular systolic function compared to 6 months ago. 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 Transthoracic echocardiogram performed today suggests at least moderate prosthetic aortic regurgitation which was not present at the time of the KRYSTAL study in 2019, but noticed the time of the transthoracic study May, per my review of the images, and again today. -Patient appears frail, borderline cachectic. ESR this admission within normal limits. CRP screen minimally elevated. Blood and fungal cultures without growth thus far. -Continue furosemide 40 mg IV twice daily. Patient received potassium chloride 40 mill equivalents by mouth this morning. We will add spironolactone 12.5 mg daily. Continue to follow kidney function electrolytes while diuresing. -Agree with keeping Osman catheter in place, monitoring kidney function electrolytes during diuresis. -High sensitive troponin measurements continue to trend down. New T wave inversions noted in precordial leads. While presentation is not suggestive of an acute coronary syndrome, the contribution of underlying ischemia not excluded. -DVT prophylaxis: Agree with subcutaneous heparin. Admission and Anticipated Discharge Date Admission Date: October 21, 2022 Subjective Patient seen in cardiology follow-up. Shortness of breath marginally improved, with oxygen titrated down to 2 L/min nasal cannula. Urine output 2.2 L in the last 24 hours. Physical Exam Constitutional: + ill appearing and + cachectic Respiratory: Auscultation: + diminished lung sounds (Decreased breath sounds at the bases right worse than left ) Cardiovascular: Rate/Rhythm: regular rate and regular rhythm Heart Sounds: + murmur (I/ SM, I/ diastolic murmur) Extremities: no edema Gastrointestinal (Abdomen): normal bowel sounds, soft, nontender, no hepatosplenomegaly Neurologic: PERRL, EOMI, accommodation nl, no face palsy, no dysarthria Results & Data Vital Signs (Past 12 Hours) Vital Signs Temp Pulse Pulse Resp BP Pulse Ox O2 Del Method 10/23/22 15:54 36.5 C 68 16 114/62 98 Nasal Cannula 10/23/22 11:30 36.9 C 73 20 131/71 97 Nasal Cannula 10/23/22 09:08 Nasal Cannula 10/23/22 09:07 64 10/23/22 07:15 36.5 C 62 18 127/67 97 Nasal Cannula O2 Flow Rate 10/23/22 15:54 2 10/23/22 11:30 2 10/23/22 09:08 2 10/23/22 09:07 10/23/22 07:15 2 Laboratory Results Cardiac Enzymes 10/23/22 10/23/22 Range/Units 05:26 05:26 AST 18 (13-39) U/L Troponin I High Sens 38.6 H (0-20) pg/ml B-Natriuretic Peptide 1825 H (0-100) pg/ml Coagulation 10/23/22 Range/Units 05:26 B-Natriuretic Peptide 1825 H (0-100) pg/ml CBC 10/23/22 Range/Units 05:26 WBC 7.35 (4.8-10.8) K/ul RBC 3.58 L (4.70-6.10) M/uL Hgb 10.7 L (14.0-18.0) g/dl Hct 32.3 L (42.0-52.0) % Plt Count 124 L (130-400) K/uL Comprehensive Metabolic Panel 10/23/22 Range/Units 05:26 Sodium 139 (136-145) mmol/L Potassium 3.3 L (3.5-5.1) mmol/L Chloride 105 (98-107) mmol/L Carbon Dioxide 27 (21-32) mmol/L BUN 31 H (6-23) mg/dl Creatinine 1.34 (0.6-1.4) mg/dl Glucose 83 (70-99(Fasting)) mg/dl Calcium 8.2 L (8.6-10.3) mg/dl AST 18 (13-39) U/L ALT 9 (7-52) U/L Alkaline Phosphatase 52 (34-104) U/L Total Protein 5.9 L D (6.0-8.3) gm/dl Albumin 3.2 L (3.4-5.0) gm/dl Intake and Output 10/23/22 10/23/22 10/23/22 06:59 14:59 22:59 Intake Total 330 / 970.833 850 / 850 Output Total 850 / 2251 725 / 725 Balance -520 / -1280.167 125 / 125 Intake: IV 180 / 280.833 210 / 210 Doxycycline Hyclate 100 mg In 110 / 210.833 110 / 110 Dextrose 5% 100 ml @ 50 mls/hr IV Q12H [facility] Rx#:[id number] Magnesium Sulfate / D5w 1 gm In 100 / 100 100 ml @ 50 mls/hr IV [facility] Rx#:[id number] cefTRIAXone SODIUM 2,000 mg In 70 / 70 Dextrose 5% 50 ml @ 100 mls/hr IV Q24H [facility] Rx#:[id number] Oral 150 / 690 640 / 640 Output: Urine Amount (Catheter) 850 / 2250 725 / 725 Osman/Indwelling 850 / 2250 725 / 725 Other: Other Intake Source NPO Weight 49.5 kg Weight Measurement Method Built in [facility]
[2022-10-23] MEDS: SPIRONOLACTONE 12.5 MG TAB PO SCH (17:26)
[2022-10-23] MEDS: amLODIPine BESYLATE 5 MG TAB PO SCH (19:53)
[2022-10-23] MEDS: METOPROLOL SUCC 25MG EXT REL TAB PO SCH (19:53)
[2022-10-23] MEDS: LANTUS PER UNIT CHARGE SQ SCH (20:39)
[2022-10-23] MEDS: cefTRIAXone SODIUM 2,000 MG in DEXTROSE 5% 50 ML IV SCH (20:41)
[2022-10-24] MEDS: LEVOTHYROXINE SODIUM 137 MCG TABLET PO SCH (05:54)
[2022-10-24 07:18] LABS: Hematocrit (blood only) 32.8 % (42.0-52.0); Hemoglobin 10.9 g/dl (14.0-18.0); Mean Corpuscular Hemoglobin 29.6 pg (25.0-34.0); Mean Corpuscular Hgb Conc 33.2 g/dL (32.0-36.0); Mean Corpuscular Volume 89.1 fL (80.0-100.0); Mean Platelet Volume 10.8 fL (9.4-12.4); Platelet Count 129 K/uL (130-400); RDW Coefficient of Variation 14.9 % (11.5-14.5); RDW Standard Deviation 49.3 fL (36.4-46.3); Red Blood Count 3.68 M/uL (4.70-6.10); White Blood Count 6.55 K/ul (4.8-10.8)
[2022-10-24 07:45] LABS: Calcium 8.8 mg/dl (8.6-10.3); Magnesium 1.9 mg/dl (1.7-2.4); Potassium 3.6 mmol/L (3.5-5.1)
[2022-10-24 07:50] LABS: Creatinine Clr Calc Pharmacy 33.6 ml/min; Est GFR (African American) 63.6 ml/min; Est GFR (Non-African American) 54.9 ml/min
[2022-10-24] MEDS: INSULIN ASPART PER UNIT CHARGE SC SCH ×4 (08:00→20:47)
[2022-10-24] MEDS: FUROSEMIDE 40 MG/4 ML VIAL IV SCH ×2 (08:24→16:26)
[2022-10-24] MEDS: DIVALPROEX EXTENDED RELEASE 500 MG TAB PO SCH ×2 (08:24→19:58)
[2022-10-24] MEDS: HEPARIN SOD 5,000 UNIT/0.5 ML VIAL SQ SCH ×2 (08:25→19:58)
[2022-10-24] MEDS: SPIRONOLACTONE 12.5 MG TAB PO SCH (08:25)
[2022-10-24] MEDS: DOXYCYCLINE HYCLATE 100 MG in DEXTROSE 5% 100 ML IV SCH ×2 (09:35→21:44)
--- NOTE | 2022-10-24 09:50 | Cardiology Progress Note ---
Date of Service October 24, 2022 Assessment & Plan (1) Acute HFrEF (heart failure with reduced ejection fraction): (2) Pleural effusion: Plan - Patient presents with hypoxia, right greater than left pleural effusions, clinical, radiographic evidence consistent with congestive heart failure. -Echocardiogram reveals a subtle decline in left ventricular systolic function compared to 6 months ago. 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 Transthoracic echocardiogram performed this admission suggests at least moderate prosthetic aortic regurgitation which was not present at the time of the KRYSTAL study in 2019, but noticed the time of the transthoracic study May, per my review of the images, and again today. -Patient appears frail, borderline cachectic. - Blood and fungal cultures without growth thus far. -Continue furosemide 40 mg IV twice daily. -Spironolactone added yesterday at 12.5 mg daily and tolerating. - Repeat potassium dose of 40 meq this morning. -Continue to follow kidney function electrolytes while diuresing. -Monitor I+O's -Volume status continues to improve. Hypoxia continues to improve. -chest xray this morning with improved pleural effusions, mild pulm congestion. -Continue IV diuretics for another 24-48 hours, and then will transition to oral diuretics. -Would consider removing waldron catheter in the next 24 hours prior to discharge. -High sensitive troponin measurements continue to trend down. New T wave inversions noted in precordial leads. While presentation is not suggestive of an acute coronary syndrome, the contribution of underlying ischemia not excluded. -He has no anginal complaints. -Continue antibiotics per hospitalist for underlying pneumonia as well. -DVT prophylaxis: Agree with subcutaneous heparin. Case discussed with Dr. Lamar I spent a total of 35 minutes on the date of service in preparation, delivery, and documentation of the care provided to this patient, excluding any time spent in the performance of separately billed services. Maira Evangelista PA-C Department of Cardiology, [facility] This chart was completed in part utilizing Speech Voice Recognition Software. Grammatical errors, random word insertions, pronoun errors, and incomplete sentences are an occasional consequence of this system due to software limitations, ambient noise, and hardware issues. Any formal questions or concerns about the content, text, or information contained within the body of this dictation should be directly addressed to the provider for clarification. Admission and Anticipated Discharge Date Admission Date: October 21, 2022 Supervising Physician Co-Signing Physician Notes Supervising Physician Attestation: I have personally performed a history and physical examination on the patient. I agree with the physician assistant wrestling coach's findings and plan as documented with the following additions. Subjective: Shortness of breath somewhat improved. Oxygen weaned to room air. Exam: Pulmonary: Decreased breath sounds at the bases, right worse than left Cardiovascular: Regular rhythm, 1/6 systolic, diastolic murmur, no edema Data: Repeat chest x-ray performed today reveals enlargement of the cardiac silhouette, pulmonary edema has improved to some degree, pleural effusions still present but improved. Assessment and Plan: Impression :as noted above Continue Waldron catheter for now. Continue furosemide 40 mg IV twice daily. DVT prophylaxis: Subcutaneous heparin BID. Guru Lamar, DO Subjective Patient resting in bed comfortably. Patient reports improved SOB since admission. Oxygen saturations improved. Tolerating room air this morning without hypoxia. Cough improving. no fever or chills. No orthopnea, PND, edema. Nurse reports he has generalized weakness when getting out of bed. No dizziness or lightheadedness reported Review of Systems Review of Systems: All systems reviewed & are unremarkable except as noted in HPI & below Physical Exam Constitutional: + ill appearing and + cachectic Respiratory: Auscultation: + diminished lung sounds (Decreased breath sounds at the bases ) and + crackles (L>R) Cardiovascular: Rate/Rhythm: regular rate and regular rhythm Heart Sounds: + murmur (I/ SM, I/ diastolic murmur) Extremities: no edema Gastrointestinal (Abdomen): normal bowel sounds, soft, nontender, no hepatosplenomegaly Neurologic: PERRL, EOMI, accommodation nl, no face palsy, no dysarthria Results & Data Vital Signs (Past 12 Hours) Vital Signs Temp Pulse Pulse Resp BP Pulse Ox O2 Del Method 10/24/22 07:29 36.4 C L 65 18 130/58 L 96 Room Air 10/24/22 03:17 36.7 C 66 18 127/65 100 Nasal Cannula 10/23/22 22:49 36.5 C 68 130/72 95 Nasal Cannula O2 Flow Rate 10/24/22 07:29 10/24/22 03:17 2 10/23/22 22:49 2 Laboratory Results CBC 10/24/22 Range/Units 06:44 WBC 6.55 (4.8-10.8) K/ul RBC 3.68 L (4.70-6.10) M/uL Hgb 10.9 L (14.0-18.0) g/dl Hct 32.8 L (42.0-52.0) % Plt Count 129 L (130-400) K/uL Comprehensive Metabolic Panel 10/24/22 Range/Units 06:44 Sodium 137 (136-145) mmol/L Potassium 3.6 (3.5-5.1) mmol/L Chloride 103 (98-107) mmol/L Carbon Dioxide 28 (21-32) mmol/L BUN 33 H (6-23) mg/dl Creatinine 1.27 (0.6-1.4) mg/dl Glucose 75 (70-99(Fasting)) mg/dl Calcium 8.8 (8.6-10.3) mg/dl Diagnostic Findings Telemetry reviewed - NSR in the 60's. Occ PVC Chest xray repeated this morning: Improving IMPRESSION: Small bilateral pleural effusions are seen, somewhat decreased on the left. Previously noted airspace opacities have improved although there is mild residual pulmonary edema. Medications Administered Current Inpatient Medications Acetaminophen (Acetaminophen 325 Mg Tab) 650 mg PO Q4H PRN PRN Reason: Pain or Fever Stop: 11/20/22 21:06 Amlodipine Besylate (Amlodipine Besylate 5 Mg Tab) 5 mg PO HS KASSANDRA Stop: 11/20/22 20:59 Last Admin: 10/23/22 19:53 Dose: 5 mg Dextrose (Dextrose 50% 50 Ml Syringe) 25 - 50 ml IV UD PRN; Protocol PRN Reason: Hypoglycemia Protocol Stop: 11/20/22 21:06 Divalproex Sodium (Divalproex Extended Release 500 Mg Tab) 500 mg PO BID KASSANDRA Stop: 11/20/22 20:59 Last Admin: 10/24/22 08:24 Dose: 500 mg Furosemide (Furosemide 40 Mg/4 Ml Vial) 40 mg IV [id number] KASSANDRA Stop: 11/21/22 08:59 Last Admin: 10/24/22 08:24 Dose: 40 mg Glucagon (Glucagon For Inj 1 Mg Vial) 1 mg SQ UD PRN; Protocol PRN Reason: Hypoglycemia Protocol Stop: 11/20/22 21:06 Glucose (Glucose 10 Tab/Tube) 4 - 8 tab PO UD PRN; Protocol PRN Reason: Hypoglycemia Treatment Stop: 11/20/22 21:06 Glucose (Glucose 40% Gel 15 Gm Tube) 15 - 30 gm PO UD PRN; Protocol PRN Reason: Hypoglycemia Protocol Stop: 11/20/22 21:06 Heparin Sodium (Porcine) (Heparin Sod 5,000 Unit/0.5 Ml Vial) 5,000 units SQ Q12 KASSANDRA Stop: 11/20/22 21:06 Last Admin: 10/24/22 08:25 Dose: 5,000 units Ceftriaxone Sodium 2,000 mg/ (Dextrose) 70 mls @ 100 mls/hr IV Q24H [facility]; Protocol Stop: 10/28/22 21:29 Last Infusion: 10/23/22 22:04 Dose: Infused Doxycycline Hyclate 100 mg/ (Dextrose) 110 mls @ 50 mls/hr IV Q12H [facility] Stop: 10/28/22 21:59 Last Admin: 10/24/22 09:35 Dose: 50 mls/hr Insulin Aspart (Insulin Aspart Per Unit Charge) 0 units SC ACHS [facility] Stop: 11/20/22 21:06 Last Admin: 10/24/22 08:00 Dose: Not Given Insulin Glargine (Lantus Per Unit Charge) 5 units SQ HS [facility] Stop: 11/20/22 21:06 Last Admin: 10/23/22 20:39 Dose: 5 units Levothyroxine Sodium (Levothyroxine Sodium 137 Mcg Tablet) 137 mcg PO DAILYBB [facility] Stop: 11/22/22 06:29 Last Admin: 10/24/22 05:54 Dose: 137 mcg Metoprolol Succinate (Metoprolol Succ 25mg Ext Rel Tab) 12.5 mg PO HS [facility] Stop: 11/20/22 20:59 Last Admin: 10/23/22 19:53 Dose: 12.5 mg Miscellaneous (Carbohydrates For Hypoglycemia ) 15 - 30 gm PO UD PRN PRN Reason: Hypoglycemia Protocol Stop: 11/20/22 21:06 Nitroglycerin (Nitroglycerin Sl 0.4 Mg/Tab Tab) 0.4 mg SL Q5M PRN PRN Reason: Chest Pain Stop: 11/20/22 21:06 Spironolactone (Spironolactone 12.5 Mg Tab) 12.5 mg PO DAILY KASSANDRA Stop: 11/22/22 16:14 Last Admin: 10/24/22 08:25 Dose: 12.5 mg
--- NOTE | 2022-10-24 09:59 | XRay Report ---
XR chest 1V portable CLINICAL HISTORY: evaluate pleural effusions; CHF; pneumonia TECHNIQUE: Single frontal radiograph of the chest was obtained. Comparison: Comparison is made to chest radiograph 10/21/2022 FINDINGS: Median sternotomy wires are unchanged. The cardiomediastinal silhouette is normal. Prominence and cep halization of the vasculature is seen. Previously noted airspace opacities are improved. Small bilate ral pleural effusions are seen. IMPRESSION: Small bilateral pleural effusions are seen, somewhat decreased on the left. Previously noted airspace opacities have improved although there is mild residual pulmonary edema. ACT 112: Negative or not required by law. Electronically signed by: Mayank Deshpande M.D. 10/24/2022 9:58 AM
[2022-10-24] MEDS ORDERED: POTASSIUM CHLORIDE CRTAB 20 MEQ TABCR PO ONE (10:40)
--- NOTE | 2022-10-24 13:58 | Hospitalist Progress Note ---
Date of Service October 24, 2022 Assessment & Plan (1) Acute respiratory failure with hypoxia: (2) Pleural effusion: (3) Acute on chronic diastolic (congestive) heart failure: Plan Acute on chronic diastolic heart failure Possible pneumonia with pleural effusion/likely sepsis POA: RR and HR elevated w/ possible pna. Acute hypoxic respiratory failure Presented with shortness of breath for 3 days associated with low-grade fever at home. At admission, leukocytosis +, BNP elevation +, EKG w/ sinus Tach and TWI (TWI more prominent in f/u EKG) Chest x-ray shows pulm edema with a small to moderate bilateral pleural effusion. CT Chest: Consistent with pulmonary edema versus pneumonia. Moderate right and small left pleural effusions. Echo with EF of 45 to 50%, grade 2 diastolic dysfunction, borderline to mild diffuse global left ventricular hypokinesis present Continue with Rocephin and doxycycline for possible pneumonia. Pulm evaled, appreciate recs. Strict I's and O's, Osman cath in. Patient on RA. Cardio on board, being diuresed. f/u CXR today improving pl eff and opacity. Monitor renal fxn, replete lytes as appropriate, f/u blood cultures - no growth so far. Elevated troponin/likely demand ischemia: 2/2 acute process (above). Pt w/ no chest pain. c/w tele monitoring. ECHO and EKG reviewed. Chronic conditions; Hypertensioncontinue amlodipine and metoprolol. Type 2 diabetes mellituscontinue on Lantus and NovoLog Seizure disordercontinue on sodium valproate CKDcreatinine at baseline. Avoid nephrotoxic drugs. Acute myelogenous leukemia in remission Hypothyroidism: c/w levothyroxine, takes 137 mcg daily per OP chart review. Full code DVT prophylaxis heparin Admission and Anticipated Discharge Date Admission Date: October 21, 2022 Subjective Patient seen and examined at bedside as a follow-up of acute respiratory failure with hypoxia, pleural effusion, acute on chronic diastolic heart failure. Patient was lying in bed, on RA, NAD, reports no new acute event overnight, reports eating okay and moving bowels okay, reports shortness of breath improving and is able to work w/ PT better today. Patient denies chest pain or palpitation no headache or dizziness or sore throat. Pt reports cough at his baseline now. Physical Exam Physical Exam: GENERAL: Alert and oriented x3. NAD, on RA, lean thin appearing HEENT: No pallor, no icterus. Pupils equal, round and reactive to light. Oral mucosa moist. NECK: No JVD, no neck masses. HEART: S1 and S2 heard. Regular rate and rhythm. Systolic murmur at A and P area, no gallop. RESPIRATORY SYSTEM: Normal AP diameter. No accessory muscle use. No wheezing, b/l basal crackles. ABDOMEN: Soft, bowel sounds present, nontender, no distention. CENTRAL NERVOUS SYSTEM: No facial droop. Speech is clear. Obeys simple commands. Moves extremities. EXTREMITIES: trace ble edema, no erythema seen. Results & Data Results & Data Vital Signs (Past 12 Hours) Vital Signs Temp Pulse Pulse Resp BP Pulse Ox O2 Del Method 10/24/22 11:29 36.5 C 66 18 144/65 H 96 Room Air 10/24/22 08:00 68 10/24/22 08:00 Room Air 10/24/22 07:29 36.4 C L 65 18 130/58 L 96 Room Air 10/24/22 03:17 36.7 C 66 18 127/65 100 Nasal Cannula O2 Flow Rate 10/24/22 11:29 10/24/22 08:00 10/24/22 08:00 10/24/22 07:29 10/24/22 03:17 2
[2022-10-24] MEDS: amLODIPine BESYLATE 5 MG TAB PO SCH (19:58)
[2022-10-24] MEDS: METOPROLOL SUCC 25MG EXT REL TAB PO SCH (19:58)
[2022-10-24] MEDS: cefTRIAXone SODIUM 2,000 MG in DEXTROSE 5% 50 ML IV SCH (20:46)
[2022-10-24] MEDS: LANTUS PER UNIT CHARGE SQ SCH (20:47)
[2022-10-25] MEDS: LEVOTHYROXINE SODIUM 137 MCG TABLET PO SCH (05:44)
[2022-10-25 08:01] LABS: BUN Creatinine Ratio 27.1 (10-20); Est GFR (African American) 69.5 ml/min; Magnesium 1.9 mg/dl (1.7-2.4); Potassium 4.2 mmol/L (3.5-5.1)
[2022-10-25] MEDS: INSULIN ASPART PER UNIT CHARGE SC SCH ×4 (08:18→21:30)
[2022-10-25] MEDS: FUROSEMIDE 40 MG/4 ML VIAL IV SCH ×2 (08:30→17:18)
[2022-10-25] MEDS: DIVALPROEX EXTENDED RELEASE 500 MG TAB PO SCH ×2 (08:36→21:13)
[2022-10-25] MEDS: HEPARIN SOD 5,000 UNIT/0.5 ML VIAL SQ SCH ×2 (08:36→21:13)
[2022-10-25] MEDS: SPIRONOLACTONE 12.5 MG TAB PO SCH (08:36)
[2022-10-25] MEDS: DOXYCYCLINE HYCLATE 100 MG in DEXTROSE 5% 100 ML IV SCH ×2 (10:47→22:15)
--- NOTE | 2022-10-25 13:30 | Cardiology Progress Note ---
Date of Service October 25, 2022 Assessment & Plan (1) Acute HFrEF (heart failure with reduced ejection fraction): (2) Pleural effusion: Plan - Patient presents with hypoxia, right greater than left pleural effusions, clinical, radiographic evidence consistent with congestive heart failure. -Echocardiogram reveals a subtle decline in left ventricular systolic function compared to 6 months ago. 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 Transthoracic echocardiogram performed this admission suggests at least moderate prosthetic aortic regurgitation which was not present at the time of the KRYSTAL study in 2019, but noticed the time of the transthoracic study May, per my review of the images, and again today. -Patient appears frail, borderline cachectic. - Blood and fungal cultures without growth thus far. -Continue furosemide 40 mg IV twice daily. -Outputs slowly declining. -Approaching euvolemic state. -Continue IV diuretics today and hold in AM. -Likely transition to oral furosemide tomorrow. Patient not previously on diuretics as outpatient. would recommend low dose furosemide 20 mg daily with spironolactone to maintain volume status. Continue spironolactone 12.5 mg daily as well. Supplement potassium as needed. -Continue to follow kidney function electrolytes while diuresing. -Monitor I+O's -Volume status continues to improve. Hypoxia continues to improve. -High sensitive troponin measurements continue to trend down. New T wave inversions noted in precordial leads. While presentation is not suggestive of an acute coronary syndrome, the contribution of underlying ischemia not excluded. -He has no anginal complaints. -Continue antibiotics per hospitalist for underlying pneumonia as well. -DVT prophylaxis: Agree with subcutaneous heparin. Case discussed with Dr. Lamar I spent a total of 35 minutes on the date of service in preparation, delivery, and documentation of the care provided to this patient, excluding any time spent in the performance of separately billed services. Maira Evangelista PA-C Department of Cardiology, [facility] This chart was completed in part utilizing Speech Voice Recognition Software. Grammatical errors, random word insertions, pronoun errors, and incomplete sentences are an occasional consequence of this system due to software limitations, ambient noise, and hardware issues. Any formal questions or concerns about the content, text, or information contained within the body of this dictation should be directly addressed to the provider for clarification. Admission and Anticipated Discharge Date Admission Date: October 21, 2022 Supervising Physician Co-Signing Physician Notes Supervising Physician Attestation: I have personally performed a history and physical examination on the patient. I agree with the physician restaurant assistant manager's findings and plan as documented with the following additions. Subjective: Patient trending toward improvement. Oxygen saturation 97% on room air. Overall however appears frail and cachectic. Exam: Pulmonary: Decreased breath sounds at the bases, slight improvement compared to yesterday Cardiovascular: Regular rhythm, 1/6 systolic murmur, no edema Data: Creatinine 1.18, potassium 4.2 Assessment and Plan: --Assessment as noted above Continue furosemide 40 mg IV twice daily, spironolactone 12.5 mg daily. DVT prophylaxis: Subcutaneous heparin for DVT prophylaxis Guru Lamar, I spent a total of 20 minutes on the date of service in preparation, delivery, and documentation of the care provided to this patient, excluding any time spent in the performance of separately billed services. Subjective Patient resting in bed. Feeling better each day. SOB improving. Lingering cough noted, but also improving. Denies chest pain. no dizziness. Tolerating diuretics. Outputs have been decreasing over the last 24 hours. Review of Systems Review of Systems: All systems reviewed & are unremarkable except as noted in HPI & below Physical Exam Constitutional: + ill appearing and + cachectic Respiratory: Auscultation: + diminished lung sounds (Decreased breath sounds at the bases ) and + crackles (L>R) Cardiovascular: Rate/Rhythm: regular rate and regular rhythm Heart Sounds: + murmur (I/ SM, I/ diastolic murmur) Extremities: no edema Gastrointestinal (Abdomen): normal bowel sounds, soft, nontender, no hepatosplenomegaly Neurologic: PERRL, EOMI, accommodation nl, no face palsy, no dysarthria Results & Data Vital Signs (Past 12 Hours) Vital Signs Temp Pulse Pulse Resp BP BP Pulse Ox 10/25/22 12:15 64 10/25/22 11:00 37.0 C 71 17 130/67 97 10/25/22 08:00 10/25/22 07:30 36.3 C L 63 17 137/69 94 10/25/22 03:00 36.4 C L 77 14 115/47 L 97 O2 Del Method 10/25/22 12:15 10/25/22 11:00 Room Air 10/25/22 08:00 Room Air 10/25/22 07:30 Room Air 10/25/22 03:00 Room Air Laboratory Results Comprehensive Metabolic Panel 10/25/22 Range/Units 06:59 Sodium 138 (136-145) mmol/L Potassium 4.2 (3.5-5.1) mmol/L Chloride 104 (98-107) mmol/L Carbon Dioxide 27 (21-32) mmol/L BUN 32 H (6-23) mg/dl Creatinine 1.18 (0.6-1.4) mg/dl Glucose 77 (70-99(Fasting)) mg/dl Calcium 9.0 (8.6-10.3) mg/dl Intake and Output 10/24/22 10/25/22 10/25/22 22:59 06:59 14:59 Intake Total 590 / 1590 210 / 1590 110 / 110 Output Total 775 / 1550 150 / 1550 Balance -185 / 40 60 / 40 110 / 110 Intake: IV 70 / 290 110 / 290 110 / 110 Doxycycline Hyclate 100 mg In 110 / 220 110 / 110 Dextrose 5% 100 ml @ 50 mls/hr IV Q12H [facility] Rx#:[id number] cefTRIAXone SODIUM 2,000 mg In 70 / 70 Dextrose 5% 50 ml @ 100 mls/hr IV Q24H [facility] Rx#:[id number] Oral 520 / 1300 100 / 1300 Output: Urine Amount (Catheter) 775 / 1550 150 / 1550 Osman/Indwelling 775 / 1550 150 / 1550 Other: Weight 47.038 kg Weight Measurement Method Built in [facility] Diagnostic Findings Telemetry reviewed: NSR in the 60-70 bpm range. no arrhythmias chest xray yesterday IMPRESSION: Small bilateral pleural effusions are seen, somewhat decreased on the left. Previously noted airspace opacities have improved although there is mild residual pulmonary edema. Medications Administered Current Inpatient Medications Acetaminophen (Acetaminophen 325 Mg Tab) 650 mg PO Q4H PRN PRN Reason: Pain or Fever Stop: 11/20/22 21:06 Amlodipine Besylate (Amlodipine Besylate 5 Mg Tab) 5 mg PO HS [facility] Stop: 11/20/22 20:59 Last Admin: 10/24/22 19:58 Dose: 5 mg Dextrose (Dextrose 50% 50 Ml Syringe) 25 - 50 ml IV UD PRN; Protocol PRN Reason: Hypoglycemia Protocol Stop: 11/20/22 21:06 Divalproex Sodium (Divalproex Extended Release 500 Mg Tab) 500 mg PO BID [facility] Stop: 11/20/22 20:59 Last Admin: 10/25/22 08:36 Dose: 500 mg Furosemide (Furosemide 40 Mg/4 Ml Vial) 40 mg IV [id number] [facility] Stop: 11/21/22 08:59 Last Admin: 10/25/22 08:30 Dose: 40 mg Glucagon (Glucagon For Inj 1 Mg Vial) 1 mg SQ UD PRN; Protocol PRN Reason: Hypoglycemia Protocol Stop: 11/20/22 21:06 Glucose (Glucose 10 Tab/Tube) 4 - 8 tab PO UD PRN; Protocol PRN Reason: Hypoglycemia Treatment Stop: 11/20/22 21:06 Glucose (Glucose 40% Gel 15 Gm Tube) 15 - 30 gm PO UD PRN; Protocol PRN Reason: Hypoglycemia Protocol Stop: 11/20/22 21:06 Heparin Sodium (Porcine) (Heparin Sod 5,000 Unit/0.5 Ml Vial) 5,000 units SQ Q12 [facility] Stop: 11/20/22 21:06 Last Admin: 10/25/22 08:36 Dose: 5,000 units Ceftriaxone Sodium 2,000 mg/ (Dextrose) 70 mls @ 100 mls/hr IV Q24H [facility]; Protocol Stop: 10/28/22 21:29 Last Infusion: 10/24/22 21:44 Dose: Infused Doxycycline Hyclate 100 mg/ (Dextrose) 110 mls @ 50 mls/hr IV Q12H [facility] Stop: 10/28/22 21:59 Last Infusion: 10/25/22 13:15 Dose: Infused Insulin Aspart (Insulin Aspart Per Unit Charge) 0 units SC ACHS [facility] Stop: 11/20/22 21:06 Last Admin: 10/25/22 11:59 Dose: Not Given Insulin Glargine (Lantus Per Unit Charge) 5 units SQ HS [facility] Stop: 11/20/22 21:06 Last Admin: 10/24/22 20:47 Dose: 5 units Levothyroxine Sodium (Levothyroxine Sodium 137 Mcg Tablet) 137 mcg PO DAILYBB [facility] Stop: 11/22/22 06:29 Last Admin: 10/25/22 05:44 Dose: 137 mcg Metoprolol Succinate (Metoprolol Succ 25mg Ext Rel Tab) 12.5 mg PO HS [facility] Stop: 11/20/22 20:59 Last Admin: 10/24/22 19:58 Dose: 12.5 mg Miscellaneous (Carbohydrates For Hypoglycemia ) 15 - 30 gm PO UD PRN PRN Reason: Hypoglycemia Protocol Stop: 11/20/22 21:06 Nitroglycerin (Nitroglycerin Sl 0.4 Mg/Tab Tab) 0.4 mg SL Q5M PRN PRN Reason: Chest Pain Stop: 11/20/22 21:06 Spironolactone (Spironolactone 12.5 Mg Tab) 12.5 mg PO DAILY [facility] Stop: 11/22/22 16:14 Last Admin: 10/25/22 08:36 Dose: 12.5 mg
--- NOTE | 2022-10-25 15:21 | Hospitalist Progress Note ---
Date of Service October 25, 2022 Assessment & Plan (1) Acute respiratory failure with hypoxia: (2) Pleural effusion: (3) Acute on chronic diastolic (congestive) heart failure: Plan Acute on chronic diastolic heart failure Possible pneumonia with pleural effusion/likely sepsis POA: RR and HR elevated w/ possible pna. Acute hypoxic respiratory failure Presented with shortness of breath for 3 days associated with low-grade fever at home. At admission, leukocytosis +, BNP elevation +, EKG w/ sinus Tach and TWI (TWI more prominent in f/u EKG) Chest x-ray shows pulm edema with a small to moderate bilateral pleural effusion. CT Chest: Consistent with pulmonary edema versus pneumonia. Moderate right and small left pleural effusions. Echo with EF of 45 to 50%, grade 2 diastolic dysfunction, borderline to mild diffuse global left ventricular hypokinesis present Continue with Rocephin and doxycycline for possible pneumonia. Pulm evaled, appreciate recs. Strict I's and O's, Osman cath in. Patient on RA. Cardio on board, being diuresed. on iv lasix. f/u CXR 10/[address] eff and opacity. Monitor renal fxn, replete lytes as appropriate, f/u blood cultures - no growth so far. Elevated troponin/likely demand ischemia: 2/2 acute process (above). Pt w/ no chest pain. c/w tele monitoring. ECHO and EKG reviewed. Chronic conditions; Hypertensioncontinue amlodipine and metoprolol. Type 2 diabetes mellituscontinue on Lantus and NovoLog Seizure disordercontinue on sodium valproate CKDcreatinine at baseline. Avoid nephrotoxic drugs. Acute myelogenous leukemia in remission Hypothyroidism: c/w levothyroxine, takes 137 mcg daily per OP chart review. Severe malnutrition: low bmi, lean thin, poor nutrition, multiple comorbidities. project superintendent consult. Full code DVT prophylaxis heparin Admission and Anticipated Discharge Date Admission Date: October 21, 2022 Subjective Patient seen and examined at bedside as a follow-up of acute respiratory failure with hypoxia, pleural effusion, acute on chronic diastolic heart failure. Patient was lying in bed, on RA, NAD, reports no new acute event overnight, reports eating okay and moving bowels okay, reports shortness of breath improving. Patient denies chest pain or palpitation no headache or dizziness or sore throat. Pt reports cough at his baseline now. Physical Exam Physical Exam: GENERAL: Alert and oriented x3. NAD, on RA, lean thin appearing HEENT: No pallor, no icterus. Pupils equal, round and reactive to light. Oral mucosa moist. NECK: No JVD, no neck masses. HEART: S1 and S2 heard. Regular rate and rhythm. Systolic murmur at A and P area, no gallop. RESPIRATORY SYSTEM: Normal AP diameter. No accessory muscle use. No wheezing, b/l basal crackles. ABDOMEN: Soft, bowel sounds present, nontender, no distention. CENTRAL NERVOUS SYSTEM: No facial droop. Speech is clear. Obeys simple commands. Moves extremities. EXTREMITIES: trace ble edema, no erythema seen. Results & Data Results & Data Vital Signs (Past 12 Hours) Vital Signs Temp Pulse Pulse Resp BP Pulse Ox O2 Del Method 10/25/22 12:15 64 10/25/22 11:00 37.0 C 71 17 130/67 97 Room Air 10/25/22 08:00 Room Air 10/25/22 07:30 36.3 C L 63 17 137/69 94 Room Air
[2022-10-25] MEDS: amLODIPine BESYLATE 5 MG TAB PO SCH (21:13)
[2022-10-25] MEDS: cefTRIAXone SODIUM 2,000 MG in DEXTROSE 5% 50 ML IV SCH (21:14)
[2022-10-25] MEDS: METOPROLOL SUCC 25MG EXT REL TAB PO SCH (21:14)
[2022-10-25] MEDS: LANTUS PER UNIT CHARGE SQ SCH (21:30)
[2022-10-26] MEDS: LEVOTHYROXINE SODIUM 137 MCG TABLET PO SCH (06:11)
[2022-10-26 06:42] LABS: BUN Creatinine Ratio 25.9 (10-20); Calcium 9.1 mg/dl (8.6-10.3); Creatinine Clr Calc Pharmacy 31.1 ml/min; Est GFR (African American) 59.1 ml/min; Potassium 4.1 mmol/L (3.5-5.1)
[2022-10-26] MEDS: INSULIN ASPART PER UNIT CHARGE SC SCH ×2 (07:58→12:20)
[2022-10-26] MEDS: HEPARIN SOD 5,000 UNIT/0.5 ML VIAL SQ SCH (08:01)
[2022-10-26] MEDS: DIVALPROEX EXTENDED RELEASE 500 MG TAB PO SCH (08:02)
[2022-10-26] MEDS: SPIRONOLACTONE 12.5 MG TAB PO SCH (08:03)
[2022-10-26] MEDS: FUROSEMIDE 40 MG/4 ML VIAL IV SCH (09:32)
--- NOTE | 2022-10-26 11:39 | Cardiology Progress Note ---
Date of Service October 26, 2022 Assessment & Plan (1) Acute HFrEF (heart failure with reduced ejection fraction): (2) Pleural effusion: Plan - Patient presents with hypoxia, right greater than left pleural effusions, clinical, radiographic evidence consistent with congestive heart failure. -Echocardiogram reveals a subtle decline in left ventricular systolic function compared to 6 months ago. 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 Transthoracic echocardiogram performed this admission suggests at least moderate prosthetic aortic regurgitation which was not present at the time of the KRYSTAL study in 2019, but noticed the time of the transthoracic study May, per my review of the images, and again today. -Patient appears frail, borderline cachectic. - Blood and fungal cultures without growth. -Stop furosemide 40 mg IV BID. -Start torsemide 20 mg daily (new Med) -Continue spironolactone 12.5 mg daily (new med). -Continue I O PSYCHOLOGIST metoprolol. Continue amlodipine for its antianginal effect. Stable for discharge from cardiology perspective. Admission and Anticipated Discharge Date Admission Date: October 21, 2022 Subjective Patient seen in follow up. Spouse is at the bedside. Telemetry reveals SR in the 60s. Patient's urinary catheter removed last night and he has been able to void. SOB improved. Physical Exam Constitutional: + ill appearing and + cachectic Respiratory: normal respiratory effort, lungs clear to auscultation Cardiovascular: Rate/Rhythm: regular rate and regular rhythm Heart Sounds: + murmur (I/ SM, I/ diastolic murmur) Extremities: no edema Gastrointestinal (Abdomen): normal bowel sounds, soft, nontender, no hepatosplenomegaly Neurologic: PERRL, EOMI, accommodation nl, no face palsy, no dysarthria Results & Data Vital Signs (Past 12 Hours) Vital Signs Temp Pulse Pulse Resp BP Pulse Ox O2 Del Method 10/26/22 11:31 36.4 C L 67 18 141/60 H 98 Room Air 10/26/22 11:24 81 10/26/22 08:00 36.5 C 72 18 128/59 L 96 Room Air 10/26/22 07:29 Room Air 10/26/22 04:05 36.4 C L 61 16 123/52 L 98 Room Air 10/25/22 23:57 36.7 C 65 16 131/56 L 96 Room Air Laboratory Results Comprehensive Metabolic Panel 10/26/22 Range/Units 06:05 Sodium 138 (136-145) mmol/L Potassium 4.1 (3.5-5.1) mmol/L Chloride 103 (98-107) mmol/L Carbon Dioxide 28 (21-32) mmol/L BUN 35 H (6-23) mg/dl Creatinine 1.35 (0.6-1.4) mg/dl Glucose 70 (70-99(Fasting)) mg/dl Calcium 9.1 (8.6-10.3) mg/dl Intake and Output 10/25/22 10/26/22 10/26/22 22:59 06:59 14:59 Intake Total 190 / 1070 210 / 1070 Output Total 450 / 1475 300 / 1475 Balance -260 / -405 -90 / -405 Intake: IV 70 / 290 110 / 290 Doxycycline Hyclate 100 mg In 110 / 220 Dextrose 5% 100 ml @ 50 mls/hr IV Q12H [facility] Rx#:[id number] cefTRIAXone SODIUM 2,000 mg In 70 / 70 Dextrose 5% 50 ml @ 100 mls/hr IV Q24H [facility] Rx#:[id number] Oral 120 / 780 100 / 780 Output: Urine 450 / 750 300 / 750 Other: Other Intake Source Sips Weight 46.5 kg Weight Measurement Method Built in [facility]
--- NOTE | 2022-10-26 13:52 | Discharge Summary ---
Date of Service October 26, 2022 Admission HPI Per Admitting Provider History obtained from chart review and interview with the patient. 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 Patient presents to the hospital with shortness of breath for 3 days. The shortness of breath was gradual onset; progressively increased in the last 3 days. Patient's checked his oxygen saturation at home; was 81% in room air. Patient also reports cough with mucoid sputum production. He denies any chest pain or palpitations. He reports low-grade temperatures; temperature not measured at home. He reports URI symptoms last 2 weeks. On presentation to the ED, he was tachypneic, tachycardic and was normotensive. CBC was remarkable for elevated WBC. BUN/creatinine elevated consistent with CKD. Chest x-ray shows pulmonary edema with small to moderate pleural effusion. Principal Diagnosis Acute systolic CHF Acute hypoxic respiratory failure Bilateral pleural effusion Demand Ischemia Discharge Exam Patient is thin, frail but does not appear in distress Breathing comfortably on room air No lower extremity swelling was present at bedside and corroborates that he is at his baseline Discharge Data Allergies Allergy/AdvReac Type Severity Reaction Status Date / Time amoxicillin AdvReac Intermediate SHAKES/CHILLS/FLU-LIKE Verified 10/21/22 20:42 SYMPTOMS duloxetine [From Cymbalta] AdvReac Intermediate Hypertensio Verified 10/21/22 20:42 n Influenza Virus Vaccines AdvReac Intermediate MUSCLE Verified 10/21/22 20:42 PAIN/COUGH/PAIN IN FEET sirolimus AdvReac Intermediate ABD Verified 10/21/22 20:42 PAIN/DIARRHEA/EDEMA Consultations 10/21/22 18:00 ED Decision to Admit Stat 10/21/22 21:07 Consult Cardiology Routine Consult Pulmonology Routine Ordered Studies 10/21/22 16:53 US venous doppler LE RT Stat 10/21/22 18:00 CT chest diagnostic w con Stat Hospital Course (1) Acute respiratory failure with hypoxia: (2) Pleural effusion: (3) Acute on chronic diastolic (congestive) heart failure: Plan Acute systolic heart failure Acute hypoxic respiratory failure Presented with shortness of breath for 3 days associated with low-grade fever at home. At admission, leukocytosis, BNP elevation Chest x-ray shows pulm edema with a small to moderate bilateral pleural effusion. CT Chest: Consistent with pulmonary edema versus pneumonia. Moderate right and small left pleural effusions. He was empirically placed on ceftriaxone and doxycycline and received 5 days. Repeat CXR shows improving pleural effusions. Clinical picture most consistent with decompensated CHF. Weaned off oxygen. At time of discharge was 98% on RA Received parenteral diuresis here and switched to torsemide 20mg daily and spironolactone 12.5mg daily at discharge. Follow up with Cardiology in 2 weeks after discharge Repeat TTE here shows EF mildly reduced from prior and moderate prosthetic aortic valve regurgitation. Elevated troponin from demand ischemia Chronic conditions. Continued on home medications while here Hypertensioncontinue amlodipine and metoprolol. Type 2 diabetes mellituscontinue on Lantus and NovoLog Seizure disordercontinue on sodium valproate CKDcreatinine at baseline. Avoid nephrotoxic drugs. Acute myelogenous leukemia in remission Hypothyroidism: c/w levothyroxine, dose recently reduced. Has follow up repeat TSH outpatient Severe malnutrition: low bmi, lean thin, poor nutrition, multiple comorbidities. network associate consult. Disposition- Patient is from home, lives with his . Evaluated by PT and recommended home PT. This was discussed with who declines home PT but agreeable for a visiting nurse. Home Health Attestation I certify that this patient is under my care and that I, or a physicians obstetric assistant working with me, had a face to-face encounter that meets the home health [id number] encounter requirements with this patient. The encounter with the patient was in whole, or in part, for the following medical condition, which is the primary reason for home health care (list m edical condition): CHF I certify that, based on my findings, the following services are medically necessary home health services: My clinical findings support the need for the above services because: Caregiver Instruct Med Mgmt, Safety, Disease Process, Signs to Report Daily Weights Hydration / Nutrition Medication Compliance and Monitoring Effective of New Medications S/S to Report to Provider Teach on Disease Management and Interventions Vital Signs Further, I certify that my clinical findings support that this patient is homebound (i.e. absences from home require considerable and taxing effort and are for medical reasons or synagogue services or infrequently or of short duration when for other reasons) because: Transportation Assistance/Unable to Leave Home Unassisted Certification for Home Health Services: Based on the above findings, I certify that this patient is confined to the home and needs intermittent detention care, physical therapy and/or speech therapy or continues to need occupational therapy. The patient is under my care, and I have initiated the establishment of the plan of care. This patient will be followed by a physician who will periodically review the plan of care. Total Time Total Time Spent Total Time Spent (In Minutes): 40 Discharge Plan Discharge Items Patient Disposition: Home - Home Health Services Reason For Visit: CHF Discharge Diagnosis: Acute systolic CHF Acute hypoxic respiratory failure Bilateral pleural effusion Demand Ischemia Condition on Discharge: Good Activity: Resume your previous activity Weightbearing: Full weightbearing Non-emergency contact: Primary Care Provider and Bilingual Speech Language Pathologist Call non-emergency contact if: you have any medication questions and your symptoms worsen Follow-up/Referrals: Alena Lang MD [Primary Care Provider] - (Date & Time 10/28/2022 1:40 PM Provider Alena Lang MD Department Family Medicine [facility] ) Diet: Carb Consistent or DM2 and Low Sodium (2gm) Fluids: 1800ml (7 cups) Diet Texture: Easy to Chew Addtl Attending Provider Instructions: You were started on torsemide 20mg daily and spironolactone 12.5mg daily Please follow up with your Bilingual Speech Language Pathologist within 2 weeks of discharge You should be on a low sodium, carbohydrate controlled diet and 1.8 L fluid restriction (7 cups) Pending Studies at Discharge: No Stand-Alone Forms: My [facility] [employer], Smoking Cessation Medications and DC Order Prescriptions: New torsemide 10 mg Tablet 20 mg PO QAM 60 Days Qty: 120 0RF spironolactone 25 mg Tablet 12.5 mg PO DAILY 60 Days Qty: 30 0RF Continued levothyroxine [Tirosint] 125 mcg capsule 125 mcg PO DAILY Qty: 30 2RF metoprolol succinate [Toprol XL] 25 mg tablet extended release 24 hr 12.5 mg PO HS Avastin 25 mg/mL solution See Rx Instructions intravitreal .COMPLEX Qty: 4 0RF Rx Instructions: intravitreal every 14 weeks; divalproex 500 mg tablet extended release 24 hr 500 mg PO BID 90 Days Qty: 180 3RF acetaminophen [Tylenol Extra Strength] 500 mg Tablet 500 mg PO QID PRN (Reason: Pain) cephalexin 500 mg Capsule 2,000 mg PO DIRECTED PRN (Reason: PRIOR TO DENTAL PROCEDURES) Probiotic Blend 2 billion cell-50 mg Capsule 1 cap PO BID Rx Instructions: give with meal/snack amlodipine [Norvasc] 5 mg tablet 5 mg PO HS insulin glargine [Lantus Solostar U-100 Insulin] 100 unit/mL (3 mL) insulin pen 6 unit subcut HS MDD 16 Rx Instructions: PT'S SPOUSE STATED "WHEN IN THE HOSPITAL, HIS BSG'S DROP WAY TOO LOW, MAYBE TRY TO USE ONLY 1/2 DOSE, SO BSG DOESN'T DROP TO LOW". Discharge Orders: Discharge Order- CHF (Routine); Ordered 10/26/22 Ordered By: Mj Aldana Admission Data Admit Date/Time: 10/21/22 18:36 Attending Provider: Mj Aldana Admit Provider: William Amezcua Primary Care Provider: Alena Lang Other Providers: William Amezcua ; Alice Drew ; Guru Lamar ; Timoteo Keller ; Hamlet Ibrahim ; Zach Hubbard ; Pepe Stewart ; Maira Evangelista ; Lauren Ribeiro ; Alice Norton ; Audie Terry ; Kamlesh Burr ; Parker Boggs ; Carlos Murillo
[2022-10-27] MEDS ORDERED: TORSEMIDE 10 MG TAB PO SCH (09:00)
== END 2022-10-26 14:16 | disposition home health service (06) | DRG 291 ==
LOC: ED 15:32 → SUATTDRO 18:36 → EDINP 18:36 → 2E 21:07